=== PATIENT | female | born 1960 | race Caucasian/White ===

== ENCOUNTER → 2017-07-07 | Outpatient (CLI) | payer MEDICARE, SELFPAY ==
[~2017-07-07] MED LIST: /WARF5TA; ACET65TA; BACT800T5 PO; CEFT500T; ENALAPRIL; GLUC500T PO; GLUCOVANCE; INSULANT; JANU50TA25 PO; LISI-538 PO; LISI5TAB PO; PRED10TA2; SANT250O TOP; SLOWTAB; TRIPOIN TOP; TYLE167L PO; TYLE650T30 PO; VASO20TA; ZEST1TAB7 PO
[2017-07-07 13:20] LABS: ALBUMIN 3.3 GM/DL (3.2-5.2); ALBUMIN/GLOBULIN RATIO 0.89 (1.00-1.93); ALKALINE PHOSPHATASE 124 U/L (45-117); ALT/SGPT 17 U/L (12-78); ANION GAP 6 MEQ/L (8-16); AST/SGOT 7 U/L (15-37); BILIRUBIN,TOTAL 0.5 MG/DL (0.2-1.0); BLOOD UREA NITROGEN 10 MG/DL (7-18); CALCIUM LEVEL 8.6 MG/DL (8.5-10.1); CARBON DIOXIDE LEVEL 30 MEQ/L (21-32); CHLORIDE LEVEL 101 MEQ/L (98-107); GLOMERULAR FILTRATION RATE > 60.0 (>51); GLUCOSE, FASTING 215 MG/DL (70-105); POTASSIUM SERUM 4.6 MEQ/L (3.5-5.1); SODIUM LEVEL 137 MEQ/L (136-145)
== END ==
LOC: M LAB 12:22
PROVIDERS: ATTEND Nurse Practitioner Family
DX: E11.9 Type 2 diabetes mellitus without complications (principal)

== ENCOUNTER → 2018-04-05 | Outpatient (REF) | payer MEDICARE | LOC: M LAB REF 04-06 11:12 | DX: L03.126 Acute lymphangitis of left lower limb (principal) | CPT/HCPCS: 87186 ==

== ENCOUNTER → 2018-12-04 | Outpatient (REF) | payer MEDICARE ==
[2018-12-04 16:59] LABS: BASO % 0.5 % (0.0-1.0); EOS # 0.1 10^3/uL (0.0-0.50); EOS % 1.4 % (0.0-3.0); HEMATOCRIT 39.2 % (36.0-47.0); HEMOGLOBIN 12.4 g/dl (12.0-15.5); LYMPH # 1.7 10^3/uL (1.5-4.5); LYMPH % 21.2 % (24.0-44.0); MEAN CORPUSCULAR HGB CONC 31.6 g/dl (32.0-36.5); MEAN CORPUSCULAR VOLUME 82.2 fl (80.0-96.0); MONO # 0.5 10^3/uL (0.0-0.8); MONO % 6.7 % (0.0-5.0); NEUTROPHILS # 5.5 10^3/uL (1.8-7.7); NEUTROPHILS % 69.9 % (36.0-66.0); PLATELET COUNT, AUTOMATED 374 10^3/uL (150-450); RED BLOOD COUNT 4.77 10^6/uL (4.00-5.40); WHITE BLOOD COUNT 7.9 10^3/uL (4.0-10.0)
[2018-12-04 17:04] LABS: ALBUMIN 3.3 GM/DL (3.2-5.2); ALT/SGPT 20 U/L (12-78); BILIRUBIN,TOTAL 0.4 MG/DL (0.2-1.0); BLOOD UREA NITROGEN 16 MG/DL (7-18); CALCIUM LEVEL 8.7 MG/DL (8.5-10.1); CARBON DIOXIDE LEVEL 28 MEQ/L (21-32); CHLORIDE LEVEL 100 MEQ/L (98-107); CHOLESTEROL LEVEL 152 MG/DL (<200); CHOLESTEROL RISK RATIO 2.814 (<5); GLOMERULAR FILTRATION RATE > 60.0 (>51); GLUCOSE, FASTING 232 MG/DL (70-100); HDL CHOLESTEROL 54 MG/DL (>40); LDL CHOLESTEROL 80 MG/DL (<100); NON-HDL-C 98 MG/DL; POTASSIUM SERUM 4.1 MEQ/L (3.5-5.1); SODIUM LEVEL 135 MEQ/L (136-145); TOTAL PROTEIN 7.1 GM/DL (6.4-8.2); TRIGLYCERIDES LEVEL 88 MG/DL (<150)
[2018-12-04 17:23] LABS: MAU/CREAT RATIO 6.2 MCG/MG (0.0-30.0)
[2018-12-04 17:43] LABS: HEMOGLOBIN A1c 9.2 %
== END ==
LOC: M LAB REF 16:14
PROVIDERS: ATTEND Nurse Practitioner Adult Health
DX: E11.9 Type 2 diabetes mellitus without complications (principal); Z13.9 Encounter for screening, unspecified; I10 Essential (primary) hypertension

== ENCOUNTER → 2019-04-10 | Outpatient (REF) | payer MEDICARE ==
[~2019-04-10] MED LIST changes: -/WARF5TA; +COLL30OI TOP; +COUM1TAB17; -SANT250O TOP
[2019-04-10 19:14] LABS: BASO # 0.1 10^3/uL (0.0-0.2); BASO % 0.6 % (0.0-1.0); EOS # 0.2 10^3/uL (0.0-0.50); EOS % 1.9 % (0.0-3.0); HEMATOCRIT 38.7 % (36.0-47.0); HEMOGLOBIN 12.5 g/dl (12.0-15.5); LYMPH # 2.8 10^3/uL (1.5-4.5); LYMPH % 31.2 % (24.0-44.0); MEAN CORPUSCULAR HEMOGLOBIN 27.2 pg (27.0-33.0); MEAN CORPUSCULAR HGB CONC 32.3 g/dl (32.0-36.5); MEAN CORPUSCULAR VOLUME 84.1 fl (80.0-96.0); MONO # 0.6 10^3/uL (0.0-0.8); MONO % 6.6 % (0.0-5.0); NEUTROPHILS # 5.2 10^3/uL (1.8-7.7); NEUTROPHILS % 59.4 % (36.0-66.0); PLATELET COUNT, AUTOMATED 354 10^3/uL (150-450); WHITE BLOOD COUNT 8.8 10^3/uL (4.0-10.0)
[2019-04-10 19:25] LABS: HEMOGLOBIN A1c 8.3 %
[2019-04-10 19:39] LABS: ALBUMIN 3.3 GM/DL (3.2-5.2); ALT/SGPT 17 U/L (12-78); BILIRUBIN,TOTAL 0.4 MG/DL (0.2-1.0); BLOOD UREA NITROGEN 13 MG/DL (7-18); CALCIUM LEVEL 8.8 MG/DL (8.5-10.1); CARBON DIOXIDE LEVEL 29 MEQ/L (21-32); CHLORIDE LEVEL 102 MEQ/L (98-107); CHOLESTEROL LEVEL 153 MG/DL (<200); CHOLESTEROL RISK RATIO 2.732 (<5); CREATININE FOR GFR 0.81 MG/DL (0.55-1.30); GLOMERULAR FILTRATION RATE > 60.0 (>51); GLUCOSE, FASTING 105 MG/DL (70-100); HDL CHOLESTEROL 56 MG/DL (>40); LDL CHOLESTEROL 80 MG/DL (<100); NON-HDL-C 97 MG/DL; POTASSIUM SERUM 4.1 MEQ/L (3.5-5.1); SODIUM LEVEL 139 MEQ/L (136-145); TOTAL PROTEIN 7.1 GM/DL (6.4-8.2); TRIGLYCERIDES LEVEL 87 MG/DL (<150)
[2019-04-10 19:47] LABS: TOTAL 25(OH) VITAMIN D 18.9 NG/ML (30.0-100.0)
== END ==
LOC: M LAB REF 18:38
PROVIDERS: ATTEND Nurse Practitioner Family
DX: I10 Essential (primary) hypertension (principal); Z13.220 Encounter for screening for lipoid disorders; E11.9 Type 2 diabetes mellitus without complications

== ENCOUNTER 2019-05-13 11:09 | Emergency (ER) | payer MEDICARE ==
[~2019-05-13] VITALS: Ht 170.2 cm; Wt 134.0 kg
[2019-05-13] MEDS ORDERED: LANTINJ4 (11:18)
[2019-05-13] MEDS ORDERED: RISP0.253 (11:18)
[2019-05-13] MEDS ORDERED: IBUP-1114 PO (11:18)
--- NOTE | 2019-05-13 11:57 | REP ---
Clinical: Pain without injury. Technique: AP, lateral, bilateral oblique and sunrise views of the right knee. Findings: Osteopenia and mild tricompartmental osteoarthritic degenerative changes are appreciated. The suprapatellar effusion is noted. The evidence for significant peripheral vascular disease. Impression: Mild tricompartmental osteoarthritic degenerative changes. Possible suprapatellar effusion. Electronically Signed by Gerard Ray MD 05/13/2019 11:48 A
[2019-05-13 12:35] VITALS: BP 149/76
== END 2019-05-13 12:50 | disposition home or self-care (01) ==
LOC: M ED 11:09
DX: M17.11 Unilateral primary osteoarthritis, right knee (principal); E11.9 Type 2 diabetes mellitus without complications; I10 Essential (primary) hypertension; Z79.4 Long term (current) use of insulin

== ENCOUNTER 2019-12-17 19:46 | Observation (INO) | payer MEDICARE ==
[~2019-12-17] VITALS: Ht 170.2 cm; Wt 145.2 kg
[~2019-12-17 19:46] MED LIST changes: +IBUP-1114 PO; +LANTINJ4; +RISP0.253
[2019-12-17] MEDS ORDERED: NS 500 ML IV ONE (21:00)
[2019-12-17] MEDS ORDERED: HumaLOG INSULIN (NovoLOG) PER UNIT SC SCH (21:00)
--- NOTE | 2019-12-17 21:06 | REPVR ---
PROCEDURE INFORMATION: Exam: CT Head Without Contrast Exam date and time: 12/17/2019 8:49 PM Age: 59 years old Clinical indication: Pain; Headache; Additional info: Headache, vomiting TECHNIQUE: Imaging protocol: Computed tomography of the head without contrast. Radiation optimization: All CT scans at this facility use at least one of these dose optimization techniques: automated exposure control; mA and/or kV adjustment per patient size (includes targeted exams where dose is matched to clinical indication); or iterative reconstruction. COMPARISON: No relevant prior studies available. FINDINGS: Brain: There is ztmq-qc-tbyqvygy parenchymal volume loss atypical for patient age. Mild white matter changes consistent with age related small vessel white matter angiopathic gliosis. Ventricles: The degree of ventricular dilatation is normal for age and/or degree of atrophy present. Bones/joints: Unremarkable. No acute fracture. Sinuses: Visualized sinuses are unremarkable. No fluid levels. Mastoid air cells: Visualized mastoid air cells are well aerated. Soft tissues: Unremarkable. IMPRESSION: 1. There is enfd-wg-hzzxtsaj parenchymal volume loss atypical for patient age. Mild white matter changes consistent with age related small vessel white matter angiopathic gliosis. 2. The degree of ventricular dilatation is normal for age and/or degree of atrophy present. Electronically signed by: Rigo Fox On 12/17/2019 21:05:29 PM
[2019-12-17 21:07] LABS: BASO % 0.1 % (0.0-1.0); EOS % 0.3 % (0.0-3.0); HEMATOCRIT 40.1 % (36.0-47.0); HEMOGLOBIN 12.8 g/dl (12.0-15.5); LYMPH # 0.3 10^3/uL (1.5-5.0); LYMPH % 3.5 % (24.0-44.0); MEAN CORPUSCULAR HEMOGLOBIN 26.5 pg (27.0-33.0); MEAN CORPUSCULAR HGB CONC 31.9 g/dl (32.0-36.5); MONO # 0.3 10^3/uL (0.0-0.8); MONO % 3.1 % (0.0-5.0); NEUTROPHILS # 8.6 10^3/uL (1.5-8.5); NEUTROPHILS % 92.7 % (36.0-66.0); PLATELET COUNT, AUTOMATED 302 10^3/uL (150-450); RED BLOOD COUNT 4.83 10^6/uL (4.00-5.40); WHITE BLOOD COUNT 9.3 10^3/uL (4.0-10.0)
[2019-12-17 21:18] LABS: INR 1.1; PROTHROMBIN TIME 13.9 SECONDS (11.8-14.0)
[2019-12-17 21:19] LABS: PARTIAL THROMBOPLASTIN TIME 32.8 SECONDS (25.0-38.4)
[2019-12-17 21:31] LABS: ALBUMIN 3.3 GM/DL (3.2-5.2); ALT/SGPT 16 U/L (12-78); BILIRUBIN,DIRECT 0.3 MG/DL (0.0-0.2); BILIRUBIN,TOTAL 0.6 MG/DL (0.2-1.0); BLOOD UREA NITROGEN 19 MG/DL (7-18); CALCIUM LEVEL 8.7 MG/DL (8.8-10.2); CARBON DIOXIDE LEVEL 28 MEQ/L (21-32); CHLORIDE LEVEL 99 MEQ/L (98-107); CK-MB VALUE MASS < 1.0 NG/ML (<3.6); CPK CREATINE PHOSPHOKINASE 34 U/L (26-192); CREATININE FOR GFR 0.94 MG/DL (0.55-1.30); FREE T4 1.33 NG/DL (0.76-1.46); GLOMERULAR FILTRATION RATE > 60.0 (>45); GLUCOSE, FASTING 286 MG/DL (70-100); LIPASE 132 U/L (73-393); MAGNESIUM LEVEL 1.4 MG/DL (1.8-2.4); MB/CK RELATIVE INDEX 2.94 (< OR =4); POTASSIUM SERUM 4.4 MEQ/L (3.5-5.1); SODIUM LEVEL 131 MEQ/L (136-145); THYROID STIMULATING HORMONE 0.747 uIU/ML (0.358-3.740); TOTAL PROTEIN 6.7 GM/DL (6.4-8.2); TROPONIN I < 0.02 NG/ML (< 0.10)
--- NOTE | 2019-12-17 21:57 | REPVR ---
PROCEDURE INFORMATION: Exam: XR Chest, 2 Views Exam date and time: 12/17/2019 9:20 PM Age: 59 years old Clinical indication: Other: Near syncope TECHNIQUE: Imaging protocol: XR of the chest Views: 2 views. COMPARISON: CR Chest, 2 view PA, Lat 06/13/2015 8:36 AM FINDINGS: Lungs: Lung volumes are low. There is mild bibasilar atelectasis. The lungs are otherwise clear. Pleural space: Unremarkable. No pleural effusion. No pneumothorax. Heart/Mediastinum: The cardiomediastinal silhouette is stable in appearance allowing for differences in positioning. Bones/joints: Degenerative changes again involve the spine and shoulders. Other findings: Surgical clips again overlie the right upper quadrant. IMPRESSION: No evidence for acute pulmonary disease. Electronically signed by: Jimenez Abdalla On 12/17/2019 21:57:08 PM
[2019-12-17 22:59] LABS: INFLUENZA A AMPLIFICATION NEGATIVE (NEGATIVE); INFLUENZA B AMPLIFICATION NEGATIVE (NEGATIVE)
[2019-12-17] MEDS ORDERED: ONDANSETRON 4MG/2ML VIAL (J2405) IV PRN (23:15)
[2019-12-17] MEDS ORDERED: ACETAMINOPHEN TAB 650MG DOSE (2X325MG) PO PRN (23:15)
[2019-12-17] MEDS ORDERED: MAALOX 30 ML SUSP *UDC PO PRN (23:15)
[2019-12-17] MEDS ORDERED: MOM 30ML SUSPENSION UDC PO PRN (23:15)
--- NOTE | 2019-12-17 23:20 | HPEPDOC ---
[facility] Medical History & Physical Date of Admission Dec 17, 2019 Date of Service: Dec 17, 2019 Other Provider Jazmyne Morse [facility] Attending Physician: MARLO MCGRATH MD History and Physical TIME OF SERVICE: 11:55 PM CHIEF COMPLAINT: Dizzy HISTORY OF PRESENT ILLNESS: This is a 59 year-old female that presents with complaints of feeling dizzy, lightheaded and like the room was spinning this afternoon. She denies having ringing in her ears, blurry vision, or headaches. She has also had fevers and chills, and 1 episode of nonbloody emesis. She denies having diarrhea. 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 REVIEW OF SYSTEMS: 12 point review of systems negative except as listed in HPI PAST MEDICAL/ SURGICAL HISTORY: Cibola's Chronic hypertension IDDM Migraines. History of PE SOCIAL HISTORY: She doesn't smoke FAMILY HISTORY: Symptoms. Diabetes ALLERGIES: Please see below. HOME MEDICATIONS: Please see below. PHYSICAL EXAMINATION: VITAL SIGNS: Please see below. GEN: well-nourished / well developed INTEGUMENT: not flushed/ not jaundice HEENT: NCAT / mucus membranes slightly dry CVS: RRR/NMRG/trace lower extremity edema LUNGS: clear to auscultation bilaterally on room air ABDOMEN: Contour ( obese) / abdomen is tympanic on percussion, soft & not tender with palpation NEURO: CN 2-12 are grossly intact / speech is not dysarthric / strength is 5/5 in both upper extremities, 1/5 in left lower extremity, and 2 / 5 in right lower extremity PSYCH: alert and oriented to person place and time/ able to understand and follow all commands LABORATORY DATA: See below. IMAGING: CT head " IMPRESSION: 1. There is uxxk-ro-cynxhvtd parenchymal volume loss atypical for patient age. Mild white matter changes consistent with age related small vessel white matter angiopathic gliosis. 2. The degree of ventricular dilatation is normal for age and/or degree of atrophy present. Chest x-ray " IMPRESSION: No evidence for acute pulmonary disease." ASSESSMENT: Ms. Matos is a 59 old female with a history of Cibola's, HTN, IDDM, and migraines, who is admitted for evaluation of dizziness and weakness of unclear cause. PLAN: 1. Dizziness Possibly due to mild dehydration vs hyperglycemia vs vertebrobasilar insufficiency vs BPPV vs other cause to be determined Orthostats and CT of the head done in the ER were negative The EKG showed sinus arrhythmia with a heart rate 108, and the troponin within normal limits Plan: Admit to medical floor/telemetry/follow-up MRA of the head in the mor bredna/PT consult for dill Hallpike and Darshan maneuvers 2. Weakness Possibly due to progressing Cibola's Plan: PT eval to determine if she needs rehabilitation 3. Gfnquj-cniy-adceadem likely due to hyperglycemia. The corrected sodium is 134 4. Hypomagnesemia, likely due to vomiting - Plan: Replete magnesium & follow up lytes in the morning 5. Chronic hypertension - Plan: Lisinopril 6. IDDM - Plan: diabetic diet / f/u accuchecks & A1C / hypoglycemia protocol / sliding scale insulin / continue glargine 50 units daily 7. Morbid obesity with a BMI of 50.1 and coexisting diabetes. This complicates care. 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 & referral for Bariatric Surgeon DVT PROPHYLAXIS: Lovenox DISPOSITION: Home versus temporary placement for rehabilitation after more than 2 midnight's stay Vital Signs Vital Signs Date Time Temp Pulse Resp B/P (MAP) Pulse Ox O2 Delivery O2 Flow Rate FiO2 12/17/19 21:55 104 105/59 (74) 110 116/67 (83) 12/17/19 20:11 99.4 22 96 Room Air Laboratory Data Labs 24H Laboratory Tests 2 12/17/19 20:52: Immature Granulocyte % (Auto) 0.3, Neutrophils (%) (Auto) 92.7H, Lymphocytes (%) (Auto) 3.5L, Monocytes (%) (Auto) 3.1, Eosinophils (%) (Auto) 0.3, Basophils (%) (Auto) 0.1, Neutrophils # (Auto) 8.6H, Lymphocytes # (Auto) 0.3L, Monocytes # (Auto) 0.3, Eosinophils # (Auto) 0.0, Basophils # (Auto) 0.0, Nucleated Red Blood Cells % (auto) 0.0, Prothrombin Time 13.9, Prothromb Time International Ratio 1.10, Activated Partial Thromboplast Time 32.8, Anion Gap 4L, Glomerular Filtration Rate > 60.0, Calcium Level 8.7L, Magnesium Level 1.4L, Total Bilirubin 0.6, Direct Bilirubin 0.3H, Aspartate Amino Transf (AST/SGOT) 7, Alanine Aminotransferase (ALT/SGPT) 16, Alkaline Phosphatase 104, Total Creatine Kinase 34, Creatine Kinase MB < 1.0, Creatine Kinase MB Relative Index 2.94, Troponin I < 0.02, Total Protein 6.7, Albumin 3.3, Albumin/Globulin Ratio 0.97L, Lipase 132, Thyroid Stimulating Hormone (TSH) 0.747, Free Thyroxine 1.33 12/17/19 22:13: Influenza Type A (RT-PCR) NEGATIVE, Influenza Type B (RT-PCR) NEGATIVE CBC/BMP Laboratory Tests 12/17/19 20:52 Home Medications Scheduled Insulin Glargine,Hum.rec.anlog (Lantus Solostar) 100 Unit/1 Ml Insuln.pen, 50 UNITS SC DAILY Lisinopril (Lisinopril) 20 Mg Tab, 20 MG PO QHS Risperidone (Risperidone) 0.25 Mg Tablet, 0.25 MG PO QHS Scheduled PRN Ibuprofen (Ibuprofen) 200 Mg Tablet, 400 MG PO Q6H PRN for PAIN / FEVER Allergies Coded Allergies: No Known Allergies (Verified Allergy, Unknown, 05/13/19) A-FIB/CHADSVASC A-FIB History Current/History of A-Fib/PAF?: No Current PO Anticoag Therapy: MARLO Skinner MD Dec 17, 2019 23:20
[2019-12-17] MEDS ORDERED: DEXTROSE 50% 50 ML SYRINGE IV PRN (23:30)
[2019-12-17] MEDS ORDERED: GLUCOSE 4 GM CHEW TABLET PO PRN (23:30)
[2019-12-17] MEDS ORDERED: GLUCAGON FOR INJ 1 MG VIAL (J1610) SC PRN (23:30)
[2019-12-17] MEDS ORDERED: LANTINJ4 SC (23:59)
[2019-12-17] MEDS ORDERED: IBUP-1720 PO (23:59)
[2019-12-17] MEDS ORDERED: RISP0.253 PO (23:59)
[2019-12-18 00:55] VITALS: BP 109/63
[2019-12-18] MEDS: NS 1,000 ML IV SCH ×2 (01:52→11:45)
[2019-12-18] MEDS ORDERED: IBUPROFEN 400 MG TAB PO PRN (03:00)
[2019-12-18] MEDS ORDERED: MAGNESIUM OXIDE 400 MG TAB (MAG-OX) PO ONE (03:00)
[2019-12-18 06:00] VITALS: BP 113/64
[2019-12-18 06:49] LABS: HEMATOCRIT 36.2 % (36.0-47.0); HEMOGLOBIN 11.4 g/dl (12.0-15.5); MEAN CORPUSCULAR HEMOGLOBIN 26.3 pg (27.0-33.0); MEAN CORPUSCULAR HGB CONC 31.5 g/dl (32.0-36.5); MEAN CORPUSCULAR VOLUME 83.6 fl (80.0-96.0); PLATELET COUNT, AUTOMATED 271 10^3/uL (150-450); RED BLOOD COUNT 4.33 10^6/uL (4.00-5.40); WHITE BLOOD COUNT 6.2 10^3/uL (4.0-10.0)
[2019-12-18 07:17] LABS: BLOOD UREA NITROGEN 21 MG/DL (7-18); CALCIUM LEVEL 8.2 MG/DL (8.8-10.2); CARBON DIOXIDE LEVEL 27 MEQ/L (21-32); CHLORIDE LEVEL 100 MEQ/L (98-107); CREATININE FOR GFR 0.95 MG/DL (0.55-1.30); GLOMERULAR FILTRATION RATE > 60.0 (>45); GLUCOSE, FASTING 296 MG/DL (70-100); POTASSIUM SERUM 3.6 MEQ/L (3.5-5.1); SODIUM LEVEL 133 MEQ/L (136-145)
[2019-12-18] MEDS ORDERED: DOCUSATE SODIUM 100 MG CAP PO SCH (09:00)
[2019-12-18] MEDS ORDERED: ENOXAPARIN 40 MG/0.4 ML SYRINGE (J1650) SC SCH (09:00)
[2019-12-18] MEDS ORDERED: LEVEMIR (INSULIN DETEMIR) 1 UNITS/0.01ML SC SCH (09:00)
--- NOTE | 2019-12-18 09:39 | REPVR ---
PROCEDURE INFORMATION: Exam: MR Angiogram Head Without Contrast, Arteries Exam date and time: 12/18/2019 8:36 AM Age: 59 years old Clinical indication: Dizziness and giddiness and weakness; Additional info: Rule out vertebrobasilar insuff in diabetic PT w dizziness TECHNIQUE: Imaging protocol: MR angiogram head without contrast. Exam focused on the arteries. 3D rendering: MIP and/or 3D reconstructed images were created by the technologist. COMPARISON: CT Head without contrast 12/17/2019 8:46 PM FINDINGS: Right internal carotid artery: Unremarkable. Intracranial segment is patent with no significant stenosis. No aneurysm. Right anterior cerebral artery: Unremarkable. No occlusion or significant stenosis. No aneurysm. Right middle cerebral artery: Unremarkable. No occlusion or significant stenosis. No aneurysm. Right posterior cerebral artery: There is a origin of the right posterior cerebral artery. Right vertebral artery: Unremarkable. No occlusion or significant stenosis. No aneurysm. Left internal carotid artery: Unremarkable. Intracranial segment is patent with no significant stenosis. No aneurysm. Left anterior cerebral artery: Unremarkable. No occlusion or significant stenosis. No aneurysm. Left middle cerebral artery: Unremarkable. No occlusion or significant stenosis. No aneurysm. Left posterior cerebral artery: Unremarkable. No occlusion or significant stenosis. No aneurysm. Left vertebral artery: Unremarkable. No occlusion or significant stenosis. No aneurysm. Basilar artery: Unremarkable. No occlusion or significant stenosis. No aneurysm. IMPRESSION: Intracranial arterial circulation within normal limits. Electronically signed by: Leanne Becerra On 12/18/2019 09:38:51 AM
[2019-12-18] MEDS: MAG SULF 1GM/100ML (MAG RUN) 1 GM in IV 1 EA IV SCH ×2 (09:41→10:57)
[2019-12-18] MEDS: HumaLOG INSULIN (NovoLOG) PER UNIT SC SCH ×2 (09:42→13:23)
[2019-12-18 10:11] LABS: HEMOGLOBIN A1c 8.4 %
--- NOTE | 2019-12-18 10:44 | REPVR ---
PROCEDURE INFORMATION: Exam: MR Head Without Contrast Exam date and time: 12/18/2019 8:42 AM Age: 59 years old Clinical indication: Dizziness; Additional info: Acute dizziness TECHNIQUE: Imaging protocol: MR of the head without contrast. COMPARISON: CT Head without contrast 12/17/2019 8:46 PM FINDINGS: Brain: There is no extra-axial collection or intra-axial mass. Mild moderate diffuse volume loss is within the range of normal for patient age. There are foci of increased T2 and FLAIR hyperintensity within the periventricular and subcortical white matter nonspecific but typically small-vessel ischemia in this age group. There is no diffusion restriction. Ventricles: Diffuse prominence of the ventricular system is commensurate with volume loss. Bones/joints: Unremarkable. Soft tissues: Unremarkable. Sinuses: Normal as visualized. No acute sinusitis. Mastoid air cells: Normal as visualized. No mastoid effusion. Orbits: Unremarkable. IMPRESSION: No acute hemorrhage or edema. Electronically signed by: Leanne Becerra On 12/18/2019 10:44:08 AM
--- NOTE | 2019-12-18 13:40 | IPNPDOC ---
Text Note Date of Service The patient was seen on 12/18/19. NOTE SUBJECTIVE: Interval Hx: Patient was admitted overnight for feeling dizzy, lightheadedness with room spinning. She was orthostatic negative on admission. She is status post IV fluid rehydration. THIS AM Patient was examined at bedside. Denies any recent illness. States that a couple weeks ago she had cold-like symptoms with fever. That has since resolved. She also admits to recent slow progression of decreased hearing. Denies any emesis. Denies any nausea, any vomiting. Reported an episode of diarrhea this morning. OBJECTIVE: PHYSICAL EXAMINATION: GENERAL APPEARANCE: Alert no acute distress. , Pleasant, elderly female. Resting comfortably in bed. Accompanied by family member, obese SKIN: Warm, well perfused. ENT: Palate intact, puentes tympanic membrane no bulging, no erythema, Neck supple, no thyromegaly LUNGS: Clear to auscultation bilaterally. HEART: Normal S1, S2. No murmurs, no rubs, no gallops ABDOMEN: Soft. No masses. Bowel sounds are present. EXTREMITIES: Moves all extremities equally. No gross deformities. PULSES: 2+ upper and lower extremity . NEURO: Cranial nerves II to 12 intact, normal usdsji-pkru-xavbap exam, no weakness, Negative [place]-Hallpike maneuver LABORATORY DATA: Please see below. IMAGING: ASSEMENT This is a 59-year-old female presenting complaining of dizziness, lightheadedness, feeling of the room spinning. Had reported one episode of nonbilious vomiting, fevers, chills. She also complained of diarrhea on presentation. At baseline, patient has Lamb's chorea and was able to ambulate on her own prior to admission PLAN: #Dizziness and lightheadedness secondary to dehydration, BPPV, vomiting and diarrhea, versus hyperglycemia -Orthostatics have been negative, -Negative head CT -Status post IV fluid bolus, currently IV fluids maintenance at 80 mg/h -Hyperglycemia collected with insulin and sliding scale insulin, #Ambulatory dysfunction, secondary to Lamb's chorea, -Physical therapy and occupational therapy --- Patient has been evaluated by physical therapy. They recommended patient would need to do stairs and be able to sit still, will likely require a rolling walker and shower chair. Prior to discharge. Patient will be followed by physical therapy tomorrow #Hypomagnesemia -Replacement ordered # Hypomagnesemia, likely due to vomiting - Plan: Replete magnesium & follow up lytes in the morning # Chronic hypertension - Plan: Lisinopril # IDDM - -Lantus 50 units -Sliding-scale Disposition, pending PT clearance and OT evaluation. VS,Fishbone, I+O VS, Fishbone, I+O Laboratory Tests 12/17/19 20:52 12/18/19 05:59 Vital Signs Date Time Temp Pulse Resp B/P (MAP) Pulse Ox O2 Delivery O2 Flow Rate FiO2 12/18/19 06:00 97.0 98 18 113/64 (80) 95 Room Air I&O- Last 24 Hours up to 6 AM 12/18/19 06:00 Intake Total 300 ml Output Total 0 ml Balance 300 ml GME ATTESTATION GME ATTESTATION My faculty preceptor for this patient encounter was physically present during the encounter and was fully available. All aspects of the patient interview, examination, medical decision making process, and medical care plan development were reviewed and approved by the faculty preceptor. The faculty preceptor is aware and concurs with the plan as stated in the body of this note and will attest to such by his/her cosignature. ATTENDING NOTE 59-year-old W with Mateo's who presented with acute dizziness, lightheadedness and vertigo, in the setting of baseline unsteady gait. By the time we saw Ms. Matos she reported that her dizziness was much better, her orthostatics were negative, CT head wnl and she had received fluids. She is due to work with PT with plan for safe discharge hopefully home. TAVO CHAN DO Dec 18, 2019 08:24 JANAK GODOY MD Dec 19, 2019 13:03
[2019-12-18 14:00] VITALS: BP 116/60
--- NOTE | 2019-12-18 15:00 | ECGEPIP ---
[facility] - ED Test Date: 2019-12-17 Pat Name: MARCELL SORIANO Department: Room: [place] [address] Gender: Female Vp Foundation: EVIE : 1960 Requested By: SINGH Peng Order Number: [id number] Reading MD: Nupur Jacobsen Measurements Intervals [place] Rate: 108 P: IA: 0 QRS: 23 QRSD: 82 T: 28 QT: 317 QTc: 425 Interpretive Statements SINUS RHYTHM WITH PACS DELAYED R PROGRESSION LOW VOLTAGE LIMB INCREASED RATE/ECTOPY 06/13/15 ABNORMAL RHYTHM ECG Electronically Signed on 12-18-2019 15:00:11 EST by Nupur Jacobsen
[2019-12-18] MEDS ORDERED: risperiDONE 0.25 MG TAB PO SCH (21:00)
[2019-12-18] MEDS ORDERED: lisinopriL 20 MG TAB PO SCH (21:00)
--- NOTE | 2019-12-19 14:09 | DS.PDOC ---
Discharge Summary General Date of Admission Dec 17, 2019 at 19:47 Date of Discharge 12/18/2019 Attending Physician: JANAK GODOY MD Discharge Summary PROCEDURES PERFORMED DURING STAY: None ADMITTING DIAGNOSES: 1. Dizziness DISCHARGE DIAGNOSES: Dizziness Amberson's Chronic hypertension IDDM Migraines. History of PE COMPLICATIONS/CHIEF COMPLAINT: Dizziness;Vomiting. HISTORY OF PRESENT ILLNESS/HOSPITAL COURSE: This is a 59-year-old female who was admitted with complaints of dizziness, lightheadedness, sensation of the room spinning, denied any blurry vision. Denies any recent change in medication. Denied any recent sickness, denied any hearing loss.She complained of one episode of diarrhea and vomiting prior to admission. She was admitted for dizziness and had a workup that included negative MRI, she was also followed by physical therapy and patient had a negative screen for vestibular disease. BPPV evaluation was negative. After evaluation and negative testing, as well as negative orthostatics. Patient was able to be discharged home with home health PT, shower chair, and a rolling walker. Her symptoms had resolved prior to discharge. DISCHARGE MEDICATIONS: Please see below. ALLERGIES: Please see below. PHYSICAL EXAMINATION ON DISCHARGE: VITAL SIGNS: Please see below. GENERAL APPEARANCE: Alert no acute distress. SKIN: Warm, well perfused. LUNGS: Clear to auscultation bilaterally. HEART: Normal S1, S2. No murmurs, no rubs, no gallops ABDOMEN: Soft. No masses. Bowel sounds are present. EXTREMITIES: Moves all extremities equally. No gross deformities. PULSES: 2+ upper and lower extremity . LABORATORY DATA: Please see below. IMAGING: MRI: Intracranial arterial circulation within normal limits. CT Head: No acute hemorrhage or edema. Chest Xray: No evidence for acute pulmonary disease. Head CT: 1. There is pwbe-po-brnzxbvb parenchymal volume loss atypical for patient age. Mild white matter changes consistent with age related small vessel white matter angiopathic gliosis. 2. The degree of ventricular dilatation is normal for age and/or degree of atrophy present. PROGNOSIS: ACTIVITY: As tolerated with rolling walker DIET: As Tolerated DISCHARGE PLAN: To home with home PT DISPOSITION: 06 Home Health Service. DISCHARGE INSTRUCTIONS: 1. Follow up with PCP ITEMS TO FOLLOWUP ON ON OUTPATIENT: Dizziness Mateo's Chronic hypertension IDDM Migraines. History of PE DISCHARGE CONDITION: Stable TIME SPENT ON DISCHARGE: Greater than 30 minutes. Vital Signs/I&Os Vital Signs Date Time Temp Pulse Resp B/P (MAP) Pulse Ox O2 Delivery O2 Flow Rate FiO2 12/18/19 14:00 97.0 91 19 116/60 (78) 97 Room Air I&O- Last 24 Hours up to 6 AM 12/19/19 06:00 Intake Total 560 ml Balance 560 ml Laboratory Data Labs 24H Laboratory Tests 2 12/18/19 16:24: Bedside Glucose (Misc Panel) 159H FSBS Laboratory Tests Test 12/18/19 16:24 Range/Units Bedside Glucose (Misc Panel) 159 80-115 MG/DL Discharge Medications Scheduled Insulin Glargine,Hum.rec.anlog (Lantus Solostar) 100 Unit/1 Ml Insuln.pen, 50 UNITS SC DAILY, (Reported) Lisinopril (Lisinopril) 20 Mg Tab, 20 MG PO QHS, (Reported) Risperidone (Risperidone) 0.25 Mg Tablet, 0.25 MG PO QHS, (Reported) Scheduled PRN Ibuprofen (Ibuprofen) 200 Mg Tablet, 400 MG PO Q6H PRN for PAIN / FEVER, (Reported) Allergies Coded Allergies: No Known Allergies (Verified Allergy, Unknown, 05/13/19) GME ATTESTATION GME ATTESTATION My faculty preceptor for this patient encounter was physically present during the encounter and was fully available. All aspects of the patient interview, examination, medical decision making process, and medical care plan development were reviewed and approved by the faculty preceptor. The faculty preceptor is aware and concurs with the plan as stated in the body of this note and will attest to such by his/her cosignature. ATTENDING NOTE Ms. Matos is a very pleasant 59-year-old W with Amberson's with a prior history of unsteady gait, who was admitted for acute dizziness, lightheadedness and vertigo that have appear to have been transient and have since resolved without much intervention except fluids. She had a negative CT head, MRI and BPPV testing and PT recommended discharge home with home PT, shower chair and a rolling walker. TAVO CHAN DO Dec 19, 2019 14:09 JANAK GODOY MD Dec 20, 2019 08:19
== END 2019-12-18 17:13 | disposition home health service (06) ==
LOC: M ED 19:46 → EDBD 19:46 → M ED INP 19:47 → ENRESERV 12-18 00:22 → M MSPAV 12-18 00:55
PROVIDERS: ADMIT Internal Medicine; ATTEND Internal Medicine
DX: R42 Dizziness and giddiness (principal); G10 Huntington's disease; E11.9 Type 2 diabetes mellitus without complications; I10 Essential (primary) hypertension; G43.909 Migraine, unspecified, not intractable, without status migrainosus; Z86.711 Personal history of pulmonary embolism; R53.1 Weakness; E66.01 Morbid (severe) obesity due to excess calories; E83.42 Hypomagnesemia; Z79.4 Long term (current) use of insulin; Z79.899 Other long term (current) drug therapy
CPT/HCPCS: 36415; 70450; 70544; 70551; 71046; 80048; 80076; 82550; 82553; 83036; 83690; 83735; 84439; 84443; 84484; 85025; 85027; 85610; 85730; 87502; 93005; 93041; 94760; 96361; 96372; 96374; 97116; 97530; 97535; 99285; G0378; J1650; J3475

== ENCOUNTER → 2020-01-08 | Outpatient (REF) | payer MEDICARE ==
[~2020-01-08] MED LIST changes: +IBUP-1720 PO; +LANTINJ4 SC; +RISP0.253 PO
[2020-01-08 17:10] LABS: ALBUMIN 3.6 GM/DL (3.2-5.2); ALT/SGPT 15 U/L (12-78); BASO % 0.6 % (0.0-1.0); BILIRUBIN,TOTAL 0.4 MG/DL (0.2-1.0); BLOOD UREA NITROGEN 13 MG/DL (7-18); CALCIUM LEVEL 9.3 MG/DL (8.8-10.2); CARBON DIOXIDE LEVEL 28 MEQ/L (21-32); CHLORIDE LEVEL 102 MEQ/L (98-107); CHOLESTEROL LEVEL 163 MG/DL (<200); CHOLESTEROL RISK RATIO 3.018 (<5); CREATININE FOR GFR 0.83 MG/DL (0.55-1.30); EOS # 0.1 10^3/uL (0.0-0.5); EOS % 1.9 % (0.0-3.0); FREE T4 1.31 NG/DL (0.76-1.46); GLOMERULAR FILTRATION RATE > 60.0 (>45); GLUCOSE, FASTING 182 MG/DL (70-100); HDL CHOLESTEROL 54 MG/DL (>40); HEMATOCRIT 39.5 % (36.0-47.0); LDL CHOLESTEROL 96 MG/DL (<100); LYMPH # 1.7 10^3/uL (1.5-5.0); LYMPH % 24.4 % (24.0-44.0); MEAN CORPUSCULAR HEMOGLOBIN 25.9 pg (27.0-33.0); MEAN CORPUSCULAR HGB CONC 30.4 g/dl (32.0-36.5); MEAN CORPUSCULAR VOLUME 85.3 fl (80.0-96.0); MONO # 0.6 10^3/uL (0.0-0.8); MONO % 8.8 % (0.0-5.0); NEUTROPHILS # 4.4 10^3/uL (1.5-8.5); NON-HDL-C 109 MG/DL; PLATELET COUNT, AUTOMATED 356 10^3/uL (150-450); POTASSIUM SERUM 4.3 MEQ/L (3.5-5.1); RED BLOOD COUNT 4.63 10^6/uL (4.00-5.40); SODIUM LEVEL 135 MEQ/L (136-145); TOTAL PROTEIN 7.2 GM/DL (6.4-8.2); TRIGLYCERIDES LEVEL 63 MG/DL (<150); WHITE BLOOD COUNT 6.9 10^3/uL (4.0-10.0)
[2020-01-08 17:12] LABS: TOTAL 25(OH) VITAMIN D 19.3 NG/ML (30.0-100.0)
[2020-01-08 17:18] LABS: HEMOGLOBIN A1c 8.3 %
== END ==
LOC: M LAB REF 15:53
PROVIDERS: ATTEND Nurse Practitioner Family
DX: R26.81 Unsteadiness on feet (principal); E66.01 Morbid (severe) obesity due to excess calories; I10 Essential (primary) hypertension; G10 Huntington's disease; E11.40 Type 2 diabetes mellitus with diabetic neuropathy, unspecified; E11.9 Type 2 diabetes mellitus without complications

== ENCOUNTER → 2020-04-11 | Outpatient (REF) | payer MEDICARE, OTHER ==
[~2020-04-11] MED LIST changes: +ASPI81TA26 PO; +CLIN300C6 PO; +COLA100C5 PO; -LISI-538 PO; +LISI20TA33 PO; +PENI500T PO; +PLAV1TAB2 PO; +ZOFR4TAB16 PO
== END ==
LOC: M LAB REF 19:41
PROVIDERS: ATTEND Physician Assistant Medical
DX: E11.621 Type 2 diabetes mellitus with foot ulcer (principal); L97.928 Non-pressure chronic ulcer of unspecified part of left lower leg with other specified severity

== ENCOUNTER 2020-06-02 13:58 | Inpatient (IN) | payer MEDICARE ==
[~2020-06-02] VITALS: Ht 170.2 cm; Wt 98.9 kg
[~2020-06-02 13:58] MED LIST changes: -ASPI81TA26 PO; -CLIN300C6 PO; -COLA100C5 PO; +LISI-538 PO; -LISI20TA33 PO; -PENI500T PO; -PLAV1TAB2 PO; -ZOFR4TAB16 PO
[2020-06-02] MEDS ORDERED: CLIN300C5 PO (14:07)
[2020-06-02] MEDS ORDERED: COLA100C5 PO (14:07)
[2020-06-02] MEDS ORDERED: PENI500T PO (14:07)
[2020-06-02 15:49] LABS: BASO % 0.5 % (0.0-1.0); EOS # 0.1 10^3/uL (0.0-0.5); EOS % 1.4 % (0.0-3.0); HEMATOCRIT 31.1 % (36.0-47.0); HEMOGLOBIN 9.7 g/dl (12.0-15.5); LYMPH # 1.6 10^3/uL (1.5-5.0); LYMPH % 18.1 % (24.0-44.0); MEAN CORPUSCULAR HEMOGLOBIN 24.7 pg (27.0-33.0); MEAN CORPUSCULAR HGB CONC 31.2 g/dl (32.0-36.5); MEAN CORPUSCULAR VOLUME 79.1 fl (80.0-96.0); MONO # 0.7 10^3/uL (0.0-0.8); MONO % 7.8 % (0.0-5.0); NEUTROPHILS # 6.3 10^3/uL (1.5-8.5); NEUTROPHILS % 71.7 % (36.0-66.0); PLATELET COUNT, AUTOMATED 404 10^3/uL (150-450); RED BLOOD COUNT 3.93 10^6/uL (4.00-5.40); WHITE BLOOD COUNT 8.8 10^3/uL (4.0-10.0)
[2020-06-02 16:00] LABS: BLOOD UREA NITROGEN 12 MG/DL (7-18); C REACTIVE PROTEIN QUANTITATIV 4.82 MG/DL (0.00-0.30); CALCIUM LEVEL 8.8 MG/DL (8.8-10.2); CARBON DIOXIDE LEVEL 27 MEQ/L (21-32); CHLORIDE LEVEL 99 MEQ/L (98-107); CREATININE FOR GFR 0.95 MG/DL (0.55-1.30); GLOMERULAR FILTRATION RATE > 60.0 (>45); GLUCOSE, FASTING 288 MG/DL (70-100); POTASSIUM SERUM 4.3 MEQ/L (3.5-5.1); SODIUM LEVEL 132 MEQ/L (136-145)
[2020-06-02] MEDS ORDERED: BUPIVACAINE HCL 0.5% 10ML VIAL As Ordered ONE (16:49)
[2020-06-02] MEDS ORDERED: LIDOCAINE 2% MDV 20ML VIAL As Ordered ONE (16:49)
[2020-06-02 17:10] LABS: ERYTHROCYTE SEDIMENTATION RATE 76 mm/hr (0-30)
[2020-06-02] MEDS ORDERED: fentaNYL 100 MCG/2 ML INJECTION (J3010) As Ordered ONE (18:06)
[2020-06-02] MEDS ORDERED: propofoL 200 MG/20 ML VIAL As Ordered ONE ×2 (18:06→19:21)
[2020-06-02] MEDS ORDERED: LIDOCAINE 2% 100MG/5ML SDV (FOR ANES.) As Ordered ONE (18:06)
[2020-06-02] MEDS ORDERED: ONDANSETRON 4MG/2ML VIAL As Ordered ONE (18:06)
[2020-06-02] MEDS ORDERED: MIDAZOLAM INJ 2MG/2ML VIAL (J2250 PER 1MG) As Ordered ONE (18:07)
[2020-06-02] MEDS ORDERED: MOM 30ML SUSPENSION UDC PO PRN ×2 (18:15→18:30)
[2020-06-02] MEDS ORDERED: MAALOX 30 ML SUSP *UDC PO PRN ×2 (18:15→18:30)
[2020-06-02] MEDS ORDERED: GLUCAGON INJ 1MG VIAL SC PRN ×2 (18:15→18:30)
[2020-06-02] MEDS ORDERED: DEXTROSE 50% 50 ML SYRINGE IV PRN ×2 (18:15→18:30)
[2020-06-02] MEDS ORDERED: GLUCOSE 4GM CHEW TABLET PO PRN ×2 (18:15→18:30)
[2020-06-02] MEDS ORDERED: ACETAMINOPHEN TAB 650MG DOSE (2X325MG) PO PRN ×2 (18:15→18:30)
--- NOTE | 2020-06-02 18:54 | HPEPDOC ---
[facility] Medical History & Physical Date of Admission Jun 02, 2020 Date of Service: Jun 02, 2020 Attending Physician: JEAN RODRIGUEZ MD History and Physical CHIEF COMPLAINT: Left foot ulcer HISTORY OF PRESENT ILLNESS: Digna Matos is a 59-year-old female who presented to the emergency department today after being seen by Dr. Kamara in his office for an ongoing left foot ulcer. She states that she's had the ulceration for about the past month. She states it first started after she wore a bad slippers which was rubbing against the outside part of her left foot. She had seen Dr. Kamara in the past for ulcerations on her foot and called to have him evaluate this new issue. She was started on penicillin and clindamycin and followed with Dr. Kamara closely. He also took x-rays on several visits and extended the courses of her penicillin and clindamycin due to poor healing. He also referred her to Dr. Wilson for evaluation of peripheral vascular disease. On today's visit with Dr. Kamara, he was concerned for osteomyelitis due to his exam and x-ray findings. He instructed her to come to the hospital for surgical intervention today. The patient notes that she does have some pain on the left lateral foot, especially when walking. She does have bilateral peripheral neuropathy at baseline. She has not had any recent fevers or chills. PAST MEDICAL HISTORY: 1. Diabetes mellitus with peripheral neuropathy 2. Hypertension 3. Mateo's disease 4. Chronic constipation PAST SURGICAL HISTORY: 1. Cholecystectomy 2. Hysterectomy 3. Prior toe amputation SOCIAL HISTORY: Never smoker. No current alcohol use. Denies illicit or IV drug use. On disability. Lives at home with and brother. FAMILY HISTORY: Father: Unknown Mother: Diabetes mellitus and Mclennan's disease ALLERGIES: Please see below. REVIEW OF SYSTEMS: CONSTITUTIONAL: Endorses weight gain over the past 6 months. Denies fevers, chills, night sweats, fatigue. HEENT: Denies change in vision, change in hearing. CARDIOVASCULAR: Denies chest pain, palpitations, shortness of breath, lightheadedness. RESPIRATORY: Denies dyspnea, cough, wheezing. GASTROINTESTINAL: Endorses chronic constipation. Denies nausea, vomiting, abdominal pain, diarrhea, blood in stool. GENITOURINARY: Denies dysuria, urinary frequency, urinary urgency. SKIN: Denies new rash/lesions. MUSCULOSKELETAL: Denies joint pain or muscle aches. NEUROLOGICAL: Denies headache, weakness. PSYCHIATRIC: Denies change in mood. HOME MEDICATIONS: Please see below. PHYSICAL EXAMINATION: VITAL SIGNS: see below GENERAL: Alert, comfortable, in no acute distress HEENT: Normocephalic, atraumatic, sclera anicteric, moist mucous membranes NECK: Supple, trachea midline CARDIOVASCULAR: Regular rate and rhythm, normal S1 and S2. No murmurs, rubs, or gallops RESPIRATORY: Clear to auscultation bilaterally with equal air entry bilaterally. No wheezing, rhonchi, or rales. ABDOMEN: Soft, nontender, nondistended, bowel sounds present, obese EXTREMITIES: 1+ pitting edema up to the knees bilaterally. Pulses 1/4 in bilateral lower extremities dorsalis pedis and posterior tibial. SKIN: Venous stasis skin changes over bilateral lower extremities. Area of ulceration extending down to the bone over the lateral and plantar surfaces of the left foot over the fifth metatarsal bone, no surrounding erythema, no discharge dressed in a dry dressing. There is a second area of ulceration on the distal tip of the right great toe which is about 1 cm x 1 cm in size which appears clean without discharge, surrounding erythema, or warmth. NEUROLOGIC: Alert and oriented x3 to person, place and time. No focal deficits appreciated PSYCHIATRIC: Mood and affect appropriate LABORATORY DATA: See below. IMAGING: Foot XR done at Dr. Kamara's office is not available for review. MICROBIOLOGY: Please see below. ASSESSMENT: 59-year-old female who presented to the ED at the instruction of Dr. Kamara to be admitted for surgical excision of the fifth metatarsal on the left foot due to osteomyelitis PLAN: 1. Osteomyelitis of the left fifth metatarsal Dr. Kamara consulted for surgical intervention, which is planned for today. No preoperative antibiotics per Dr. Kamara. Postoperatively consider starting antibiotics with IV vancomycin and IV ceftriaxone with de-escalation pending culture results. Blood cultures 2 pending. Tylenol for fever. Trend fever curve. Trend WBC count. Wound care per Dr. Kamara postoperatively 2. Microcytic anemia. Asymptomatic, no history of chronic anemia, trend H/H daily. Check iron studies. If negative, consider stool cultures to rule out GI bleed. 3. Peripheral vascular disease Patient has appointment to see Dr. Wilson next week for consultation 4. Diabetes mellitus Continue home basal insulin, 50 units of Levemir daily. Sliding scale insulin ACHS with FSBS, hypoglycemic protocol, consistent carbohydrate diet 5. 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 7. Chronic constipation. Continue Colace DVT prophylaxis: Teds and sequentials preoperatively, ordered Lovenox to begin tomorrow Disposition: Admitted inpatient to med/surg, expect greater than to midnight stay Vital Signs Vital Signs Date Time Temp Pulse Resp B/P (MAP) Pulse Ox O2 Delivery O2 Flow Rate FiO2 06/02/20 18:10 96.1 85 18 137/69 (91) 97 Room Air Laboratory Data Labs 24H Laboratory Tests 2 06/02/20 15:21: Coronavirus (COVID-19)(PCR) NEGATIVE 06/02/20 15:31: Immature Granulocyte % (Auto) 0.5, Neutrophils (%) (Auto) 71.7H, Lymphocytes (%) (Auto) 18.1L, Monocytes (%) (Auto) 7.8H, Eosinophils (%) (Auto) 1.4, Basophils (%) (Auto) 0.5, Neutrophils # (Auto) 6.3, Lymphocytes # (Auto) 1.6, Monocytes # (Auto) 0.7, Eosinophils # (Auto) 0.1, Basophils # (Auto) 0.0, Nucleated Red Blood Cells % (auto) 0.0, Erythrocyte Sedimentation Rate 76H, Anion Gap 6L, Glomerular Filtration Rate > 60.0, Calcium Level 8.8, C-Reactive Protein, Quantitative 4.82H 06/02/20 15:33: Lactic Acid Level 1.1 CBC/BMP Laboratory Tests 06/02/20 15:31 Microbiology Microbiology 06/02/20 Blood Culture, Received Pending 06/02/20 Blood Culture, Received Pending Home Medications Scheduled Clindamycin HCl (Clindamycin HCl) 300 Mg Capsule, 300 MG PO Q8H FOR 10 DAYS, STARTED 06/01/20 Docusate Sodium (Colace) 100 Mg Capsule, 100 MG PO QHS Insulin Glargine,Hum.rec.anlog (Lantus Solostar) 100 Unit/1 Ml Insuln.pen, 50 UNITS SC DAILY Lisinopril (Lisinopril) 20 Mg Tab, 20 MG PO QHS Penicillin V Potassium (Penicillin V Potassium) 500 Mg Tablet, 500 MG PO Q8H FOR 10 DAYS, STARTED 06/01/20 Risperidone (Risperidone) 0.25 Mg Tablet, 0.25 MG PO QHS Allergies Coded Allergies: No Known Allergies (Verified Allergy, Unknown, 05/13/19) GME ATTESTATION GME ATTESTATION My faculty preceptor for this patient encounter was physically present during the encounter and was fully available. All aspects of the patient interview, examination, medical decision making process, and medical care plan development were reviewed and approved by the faculty preceptor. The faculty preceptor is aware and concurs with the plan as stated in the body of this note and will attest to such by his/her cosignature. ATTENDING NOTE Pt seen and examined at bedside. I agree with resident HPI, past surgical, family, social history, PE, assessment and plan. IRAM YBARRA D.O. Jun 02, 2020 18:54 JEAN RODRIGUEZ MD Jun 03, 2020 01:23
[2020-06-02] MEDS ORDERED: GENTAMICIN SULF 80MG/2ML VIAL As Ordered ONE (18:59)
[2020-06-02] MEDS ORDERED: VANCOMYCIN 1000MG/20ML VIAL As Ordered ONE (19:00)
[2020-06-02] MEDS ORDERED: KETAMINE HCL 200 MG/20 ML VIAL As Ordered ONE (19:20)
[2020-06-02] MEDS ORDERED: ONDANSETRON 4MG/2ML VIAL IV PRN (20:15)
[2020-06-02] MEDS ORDERED: LR 1,000 ML IV SCH (20:15)
[2020-06-02] MEDS ORDERED: PERCOCET 5MG/325MG TAB PO PRN ×2 (20:15→20:30)
[2020-06-02] MEDS ORDERED: MEPERIDINE INJ 25 MG/ML VIAL (J2175) IV PRN (20:15)
[2020-06-02] MEDS ORDERED: METOCLOPRAMIDE INJ 10MG/2ML VIAL (J2765 PER 1) IV PRN (20:15)
[2020-06-02] MEDS ORDERED: fentaNYL 100 MCG/2 ML INJECTION (J3010) IV PRN (20:15)
[2020-06-02] MEDS ORDERED: lisinopriL 20 MG TAB PO SCH (21:00)
[2020-06-02] MEDS: HumaLOG INSULIN (NovoLOG) PER UNIT SC SCH (21:00)
[2020-06-02] MEDS ORDERED: DOCUSATE SODIUM 100 MG CAP PO SCH (21:00)
[2020-06-02] MEDS ORDERED: risperiDONE 0.25 MG TAB PO SCH (21:00)
[2020-06-02] MEDS ORDERED: HumaLOG INSULIN (NovoLOG) PER UNIT SC SCH (21:00)
[2020-06-02 21:15] VITALS: BP 112/81
[2020-06-02 21:45] VITALS: BP 127/72
[2020-06-02] MEDS: lisinopriL 20 MG TAB PO SCH (22:10)
[2020-06-02] MEDS: DOCUSATE SODIUM 100 MG CAP PO SCH (22:11)
[2020-06-02 22:15] VITALS: BP 122/70
[2020-06-02] MEDS: VANCOMYCIN HCL 1,000 MG, VIAL MATE ADAPTER 1 EACH in D5W 250 ML IV SCH (22:40)
[2020-06-02 23:15] VITALS: BP 120/69
--- NOTE | 2020-06-02 23:18 | PHACANCOPD ---
PHARMACY VANCOMYCIN DOSING Pt Demographics Demographics Patient Age:59 , Weight:98.900 , Gender: female Adjusted Body Weight Date: 06/02/20, Adjusted Body Weight: [76.5] Kg Events Past 24 Hours Events Past 24 Hours: NO: Dialysis, Diuretic Therapy, Change in CrCl, Fever, Elevation in WBC, Pending Diagnostics, Pending Procedures, Other Vancomycin Vancomycin indication: OSTEOMYELITIS Vancomycin Target Ranges: 15-20 mcg/ml Vancomycin Load Y/N: Yes Load Dose Date Time Vancomycin Load Dose: 2G Date: 06/02/20 Time: Vancomycin Dose Date: 06/02/20. Current Vancomycin Dose: [1G IV Q12H] Intermittent Dosing?: No Labs Labs Item Value Date Time White Blood Count 8.8 10^3/uL 06/02/20 1531 Creatinine 0.95 MG/DL 06/02/20 1531 C-Reactive Protein, Quantitative 4.82 MG/DL H 06/02/20 1531 Micro Microbiology 06/02/20 Wound Culture, Received Pending 06/02/20 Anaerobic Culture, Received Pending 06/02/20 Blood Culture, Received Pending 06/02/20 Blood Culture, Received Pending Creatinine Clearance Date:06/02/20. Creatinine Clearance: [76ML/MIN ADJUSTED]. Pending Labs VANCOMYCIN TROUGH 06/04/20 @08:00 Assessment and Plan Maintaining Current Dose?: Yes Reason for dose change: No Dose Change Pharmacist Note Pharmacist Note Date: 06/02/20. Pharmacist note:Pt is a 59 year old female being treated for osteomyelitis goal trough 15-20mcg/ml. She was last treated with vancomycin here at [facility] in 2012. To achieve goal a 2g vancomycin loading dose was started 06/02/20 @21:00. Maintenance therapy will consist of 1g vancomycin IV every 12 hours. A trough is schedule for 06/04/20 @08:00. We will continue to monitor and adjust the dose as needed. SRUT[facility] Jun 02, 2020 23:18
[2020-06-02] MEDS: risperiDONE 0.25 MG TAB PO SCH (23:34)
[2020-06-03] VITALS (8 sets, daily range): BP systolic 93–143; BP diastolic 60–71
[2020-06-03 07:27] LABS: PERCENT SATURATION 10.1 % (13.2-45.0)
[2020-06-03] MEDS ORDERED: HumaLOG INSULIN (NovoLOG) PER UNIT SC SCH (07:30)
--- NOTE | 2020-06-03 08:08 | REP ---
Clinical: Postoperative baseline. Technique: Portable AP, lateral, oblique views of the left foot. Findings: The patient is status post amputation through the mid fifth metatarsal bone. Overlying postsurgical changes noted. Remainder of the osseous structures demonstrate age-related osteopenia and degenerative changes. Evidence for peripheral vascular disease noted. Impression: Status post partial amputation through the fifth metatarsal bone. Electronically Signed by Gerard Ray MD 06/03/2020 08:00 A
[2020-06-03] MEDS: LEVEMIR (INSULIN DETEMIR) 1 UNITS/0.01ML SC SCH (08:56)
[2020-06-03] MEDS: VANCOMYCIN HCL 1,000 MG, VIAL MATE ADAPTER 1 EACH in D5W 250 ML IV SCH (08:56)
[2020-06-03] MEDS: ENOXAPARIN 40MG/0.4ML SYRINGE (J1650 PER 10MG) SC SCH (08:57)
[2020-06-03] MEDS: PERCOCET 5MG/325MG TAB PO PRN ×2 (08:57→17:51)
[2020-06-03] MEDS: HumaLOG INSULIN (NovoLOG) PER UNIT SC SCH ×4 (08:57→21:00)
[2020-06-03] MEDS ORDERED: LEVEMIR (INSULIN DETEMIR) 1 UNITS/0.01ML SC SCH (09:00)
[2020-06-03] MEDS ORDERED: ENOXAPARIN 40MG/0.4ML SYRINGE (J1650 PER 10MG) SC SCH (09:00)
[2020-06-03] MEDS: lisinopriL 20 MG TAB PO SCH (21:00)
[2020-06-03] MEDS: risperiDONE 0.25 MG TAB PO SCH (21:53)
[2020-06-03] MEDS: DOCUSATE SODIUM 100 MG CAP PO SCH (21:53)
[2020-06-03] MEDS ORDERED: cefTRIAXone SOD 2 GM in D5W MINI-BAG PLUS 50 ML IV SCH (22:00)
--- NOTE | 2020-06-03 22:41 | IPNPDOC ---
Date Seen The patient was seen on 06/03/20. Progress Note SUBJECTIVE: Patient seen and examined at bedside. OBJECTIVE PHYSICAL EXAMINATION: VITAL SIGNS: Please see below. GENERAL: HEENT: CARDIOVASCULAR: . RESPIRATORY: . ABDOMINAL: EXTREMITIES: NEUROLOGICAL: PSYCHOLOGICAL: LABORATORY DATA, IMAGING STUDIES, MICROBIOLOGY: Please see below. ASSESSMENT AND PLAN: 59-year-old female who presented to the ED at the instruction of Dr. Kamara to be admitted for surgical excision of the fifth metatarsal on the left foot due to osteomyelitis. Pt is now POD#0. PLAN: 1. Osteomyelitis of the left fifth metatarsal Dr. Kamara consulted for surgical intervention -Pt is POD#0 cont. IV vancomycin and IV ceftriaxone with de-escalation pending culture results. Blood cultures 2 pending. Tylenol for fever. Trend fever curve. Trend WBC count. Wound care per Dr. Kamara postoperatively 2. Microcytic anemia. Asymptomatic, no history of chronic anemia, trend H/H daily. Check iron studies. If negative, consider stool cultures to rule out GI bleed. 3. Peripheral vascular disease Patient has appointment to see Dr. Wilson next week for consultation 4. Diabetes mellitus Continue home basal insulin, 50 units of Levemir daily. Sliding scale insulin ACHS with FSBS, hypoglycemic protocol, consistent carbohydrate diet 5. 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 7. Chronic constipation. Continue Colace DVT prophylaxis: lovenox Disposition: home pending clinical improvement VS, I&O, 24H, Fishbone Vital Signs/I&O Vital Signs Date Time Temp Pulse Resp B/P (MAP) Pulse Ox O2 Delivery O2 Flow Rate FiO2 06/03/20 18:21 18 Room Air 06/03/20 14:00 97.8 82 140/60 (86) 92 06/02/20 20:00 10 I&O- Last 24 Hours up to 6 AM 06/03/20 06:00 Intake Total 1310 ml Output Total 2560 ml Balance -1250 ml Laboratory Data 24H LABS Laboratory Tests 2 06/03/20 06:44: Iron Level 22L, Total Iron Binding Capacity 217L, Transferrin % Saturation 10.1L, Ferritin 136 06/03/20 07:57: Bedside Glucose (Misc Panel) 220H 06/03/20 11:36: Bedside Glucose (Misc Panel) 263H 06/03/20 17:15: Bedside Glucose (Misc Panel) 108 06/03/20 20:47: Bedside Glucose (Misc Panel) 203H Microbiology Microbiology 06/02/20 Wound Culture, Received Pending 06/02/20 Anaerobic Culture, Received Pending 06/02/20 Blood Culture - Preliminary, Resulted No growth after 24 hours . All specim... 06/02/20 Blood Culture - Preliminary, Resulted No growth after 24 hours . All specim... JEAN RODRIGUEZ MD Jun 03, 2020 22:41
[2020-06-03] MEDS ORDERED: cefTRIAXone SOD 2 GM VIAL (J0696 PER 250MG) IM SCH (22:45)
[2020-06-04] MEDS: VANCOMYCIN HCL 1,000 MG, VIAL MATE ADAPTER 1 EACH in D5W 250 ML IV SCH ×2 (00:35→09:30)
[2020-06-04 06:00] VITALS: BP 101/70
[2020-06-04 08:50] LABS: HEMATOCRIT 33.2 % (36.0-47.0); HEMOGLOBIN 10.1 g/dl (12.0-15.5); MEAN CORPUSCULAR HEMOGLOBIN 24.3 pg (27.0-33.0); MEAN CORPUSCULAR HGB CONC 30.4 g/dl (32.0-36.5); MEAN CORPUSCULAR VOLUME 79.8 fl (80.0-96.0); PLATELET COUNT, AUTOMATED 383 10^3/uL (150-450); RED BLOOD COUNT 4.16 10^6/uL (4.00-5.40)
[2020-06-04 09:18] LABS: BLOOD UREA NITROGEN 9 MG/DL (7-18); CARBON DIOXIDE LEVEL 29 MEQ/L (21-32); CHLORIDE LEVEL 101 MEQ/L (98-107); CREATININE FOR GFR 0.79 MG/DL (0.55-1.30); GLOMERULAR FILTRATION RATE > 60.0 (>45); GLUCOSE, FASTING 218 MG/DL (70-100); POTASSIUM SERUM 4.5 MEQ/L (3.5-5.1); SODIUM LEVEL 136 MEQ/L (136-145); VANCOMYCIN LEVEL TROUGH 11.8 UG/ML (10.0-20.0)
[2020-06-04] MEDS: LEVEMIR (INSULIN DETEMIR) 1 UNITS/0.01ML SC SCH (09:29)
[2020-06-04] MEDS: ENOXAPARIN 40MG/0.4ML SYRINGE (J1650 PER 10MG) SC SCH (09:29)
[2020-06-04] MEDS: HumaLOG INSULIN (NovoLOG) PER UNIT SC SCH (09:30)
[2020-06-06] MEDS ORDERED: HumaLOG INSULIN (NovoLOG) PER UNIT ONE ×2 (01:31→06:21)
[2020-06-06] MEDS ORDERED: ENOXAPARIN 40MG/0.4ML SYRINGE (J1650 PER 10MG) ONE (06:21)
[2020-06-06] MEDS ORDERED: LEVEMIR (INSULIN DETEMIR) 1 UNITS/0.01ML ONE (06:21)
[2020-06-08] MEDS ORDERED: risperiDONE 0.25 MG TAB ONE (11:30)
[2020-07-21 08:43] LABS: GLUCOSE, FASTING 163 MG/DL (70-100)
[2020-07-21 08:44] LABS: BLOOD UREA NITROGEN 9 MG/DL (7-18); CALCIUM LEVEL 9.1 MG/DL (8.8-10.2); CARBON DIOXIDE LEVEL 29 mmol/L (20-29); CHLORIDE LEVEL 103 MEQ/L (98-107); CREATININE FOR GFR 0.85 MG/DL (0.55-1.30); GLOMERULAR FILTRATION RATE > 60.0 (>45); POTASSIUM SERUM 4.3 MEQ/L (3.5-5.1); SODIUM LEVEL 139 MEQ/L (136-145)
[2020-08-24 08:34] LABS: HEMATOCRIT 33.2 % (36.0-47.0); MEAN CORPUSCULAR HEMOGLOBIN 24.2 pg (27.0-33.0); MEAN CORPUSCULAR HGB CONC 30.1 g/dl (32.0-36.5); MEAN CORPUSCULAR VOLUME 80.4 fl (80.0-96.0); PLATELET COUNT, AUTOMATED 373 10^3/uL (150-450); RED BLOOD COUNT 4.13 10^6/uL (4.00-5.40); WHITE BLOOD COUNT 6.3 10^3/uL (4.0-10.0)
== END 2020-06-06 18:30 | disposition home or self-care (01) | DRG 617 ==
LOC: M ED 13:58 → M ED INP 18:26 → M ED 18:29 → M MS5PR 21:00
PROVIDERS: ADMIT Internal Medicine; ATTEND Internal Medicine
PROC: 0Y6Y0Z0 Detachment at Left 5th Toe, Complete, Open Approach (ICD-10-PCS; principal; 2020-06-02 17:00)
DX: E11.621 Type 2 diabetes mellitus with foot ulcer (principal); G10 Huntington's disease; M86.172 Other acute osteomyelitis, left ankle and foot; D50.9 Iron deficiency anemia, unspecified; E11.51 Type 2 diabetes mellitus with diabetic peripheral angiopathy without gangrene; I70.245 Atherosclerosis of native arteries of left leg with ulceration of other part of foot; I10 Essential (primary) hypertension; K59.00 Constipation, unspecified; Z79.899 Other long term (current) drug therapy; Z88.8 Allergy status to other drugs, medicaments and biological substances; E66.9 Obesity, unspecified; B96.29 Other Escherichia coli [E. coli] as the cause of diseases classified elsewhere

== ENCOUNTER → 2020-07-03 | Outpatient (REF) | payer MEDICARE ==
[~2020-07-03] MED LIST changes: +CLIN300C5 PO; +COLA100C5 PO; +PENI500T PO; +ZOFR4TAB16 PO
== END ==
LOC: M LAB REF 14:33
PROVIDERS: ATTEND Surgery
DX: M86.172 Other acute osteomyelitis, left ankle and foot (principal)
CPT/HCPCS: 11044; 11047; 88304; 88311; G0463

== ENCOUNTER 2020-07-29 23:36 | Emergency (ER) | payer MEDICARE, OTHER, SELFPAY ==
[~2020-07-29] VITALS: Ht 167.6 cm; Wt 140.9 kg
[~2020-07-29 23:36] MED LIST changes: -ZOFR4TAB16 PO
[2020-07-29] MEDS ORDERED: NS 500 ML IV ONE (23:45)
[2020-07-30 00:39] LABS: BASO % 0.4 % (0.0-1.0); EOS % 0.1 % (0.0-3.0); HEMOGLOBIN 10.1 g/dl (12.0-15.5); LYMPH # 0.8 10^3/uL (1.5-5.0); LYMPH % 7.3 % (24.0-44.0); MEAN CORPUSCULAR HEMOGLOBIN 23.9 pg (27.0-33.0); MEAN CORPUSCULAR HGB CONC 30.6 g/dl (32.0-36.5); MEAN CORPUSCULAR VOLUME 78.2 fl (80.0-96.0); MONO # 0.5 10^3/uL (0.0-0.8); MONO % 4.3 % (0.0-5.0); NEUTROPHILS # 9.4 10^3/uL (1.5-8.5); NEUTROPHILS % 87.2 % (36.0-66.0); PLATELET COUNT, AUTOMATED 390 10^3/uL (150-450); RED BLOOD COUNT 4.22 10^6/uL (4.00-5.40); WHITE BLOOD COUNT 10.7 10^3/uL (4.0-10.0)
[2020-07-30] MEDS ORDERED: ZOFR4TAB16 PO (01:04)
[2020-07-30 01:46] VITALS: BP 136/58
== END 2020-07-30 02:11 | disposition home or self-care (01) ==
LOC: M ED 23:36
DX: K52.9 Noninfective gastroenteritis and colitis, unspecified (principal); E11.9 Type 2 diabetes mellitus without complications; I10 Essential (primary) hypertension; G10 Huntington's disease; Z79.4 Long term (current) use of insulin; Z79.899 Other long term (current) drug therapy

== ENCOUNTER → 2020-08-14 | Outpatient (REF) | payer MEDICARE, OTHER ==
[~2020-08-14] MED LIST changes: +ZOFR4TAB16 PO
== END ==
LOC: M LAB REF 16:09
PROVIDERS: ATTEND Physician Assistant
DX: M86.10 Other acute osteomyelitis, unspecified site (principal); E11.621 Type 2 diabetes mellitus with foot ulcer

== ENCOUNTER → 2020-08-24 | Outpatient (REF) | payer MEDICARE, OTHER ==
[2020-08-24 11:27] LABS: BASO # 0.1 10^3/uL (0.0-0.2); BASO % 0.7 % (0.0-1.0); EOS # 0.2 10^3/uL (0.0-0.5); EOS % 2.5 % (0.0-3.0); HEMATOCRIT 33.5 % (36.0-47.0); LYMPH # 1.2 10^3/uL (1.5-5.0); MEAN CORPUSCULAR HGB CONC 29.9 g/dl (32.0-36.5); MEAN CORPUSCULAR VOLUME 80.5 fl (80.0-96.0); MONO # 0.6 10^3/uL (0.0-0.8); MONO % 7.7 % (0.0-5.0); NEUTROPHILS # 5.9 10^3/uL (1.5-8.5); NEUTROPHILS % 73.6 % (36.0-66.0); PLATELET COUNT, AUTOMATED 365 10^3/uL (150-450); RED BLOOD COUNT 4.16 10^6/uL (4.00-5.40); WHITE BLOOD COUNT 8.1 10^3/uL (4.0-10.0)
[2020-08-24 11:34] LABS: ALBUMIN 2.9 GM/DL (3.2-5.2); ALT/SGPT 9 U/L (12-78); BILIRUBIN,TOTAL 0.7 MG/DL (0.2-1.0); BLOOD UREA NITROGEN 16 MG/DL (7-18); C REACTIVE PROTEIN QUANTITATIV 8.26 MG/DL (0.00-0.30); CALCIUM LEVEL 9.2 MG/DL (8.8-10.2); CARBON DIOXIDE LEVEL 28 MEQ/L (21-32); CHLORIDE LEVEL 101 MEQ/L (98-107); CREATININE FOR GFR 0.82 MG/DL (0.55-1.30); GLOMERULAR FILTRATION RATE > 60.0 (>45); GLUCOSE, FASTING 179 MG/DL (70-100); POTASSIUM SERUM 4.2 MEQ/L (3.5-5.1); PREALBUMIN 10.4 MG/DL (20.0-40.0); SODIUM LEVEL 135 MEQ/L (136-145); TOTAL PROTEIN 7.1 GM/DL (6.4-8.2)
[2020-08-24 12:10] LABS: HEMOGLOBIN A1c 7.8 %
[2020-08-24 12:59] LABS: ERYTHROCYTE SEDIMENTATION RATE 65 mm/hr (0-30)
== END ==
LOC: M SHH 11:03
PROVIDERS: ATTEND Physician Assistant
DX: E11.621 Type 2 diabetes mellitus with foot ulcer (principal)

== ENCOUNTER → 2020-08-25 | Outpatient (CLI) | payer MEDICARE, OTHER ==
--- NOTE | 2020-08-28 13:02 | REP ---
UNILATERAL LEFT LOWER EXTREMITY DUPLEX ARTERIAL ULTRASOUND HISTORY: Diabetes mellitus with foot ulcer and left foot necrosis. SONOGRAPHIC DOPPLER FINDINGS: Ankle brachial index could not be achieved on the left due to inability to tolerate compression. Triphasic and biphasic waveforms are noted in the proximal leg arteries. Monophasic waveforms are noted at and distal to the popliteal on the left. There is evidence of stenosis in the distal anterior tibial artery on the left with some reversal seen in the distal posterior tibial artery. LEFT LOWR EXTREMITY ARTERIAL DOPPLER VELOCITY CHART LEFT PSV (cm/s) CAFE OPERATOR 173 Profunda 125 Proximal SFA 142 Mid SFA 184 Distal SFA 148 Popliteal 147 Proximal FEMI 29 Tibioperoneal trunk 105 Proximal BUILDING SERVICEMAN 101 Distal BUILDING SERVICEMAN 18 Distal EFMI 175 MTDD
== END ==
LOC: M RAD 12:19
PROVIDERS: ATTEND Physician Assistant
DX: E11.621 Type 2 diabetes mellitus with foot ulcer (principal); L97.524 Non-pressure chronic ulcer of other part of left foot with necrosis of bone; Z79.4 Long term (current) use of insulin

== ENCOUNTER → 2020-08-31 | Outpatient (REF) | payer MEDICARE ==
[2020-08-31 13:55] LABS: BASO # 0.1 10^3/uL (0.0-0.2); BASO % 0.5 % (0.0-1.0); EOS # 0.2 10^3/uL (0.0-0.5); EOS % 1.4 % (0.0-3.0); HEMATOCRIT 36.3 % (36.0-47.0); HEMOGLOBIN 10.9 g/dl (12.0-15.5); LYMPH # 1.7 10^3/uL (1.5-5.0); LYMPH % 15.6 % (24.0-44.0); MEAN CORPUSCULAR HEMOGLOBIN 24.3 pg (27.0-33.0); MONO # 0.8 10^3/uL (0.0-0.8); MONO % 7.1 % (0.0-5.0); NEUTROPHILS % 74.8 % (36.0-66.0); PLATELET COUNT, AUTOMATED 541 10^3/uL (150-450); RED BLOOD COUNT 4.48 10^6/uL (4.00-5.40); WHITE BLOOD COUNT 10.6 10^3/uL (4.0-10.0)
[2020-08-31 14:26] LABS: ALBUMIN 3.1 GM/DL (3.2-5.2); BILIRUBIN,TOTAL 0.5 MG/DL (0.2-1.0); CALCIUM LEVEL 9.3 MG/DL (8.8-10.2); CHOLESTEROL RISK RATIO 3.27 (<5); CREATININE FOR GFR 1.02 MG/DL (0.55-1.30); FREE T4 1.57 NG/DL (0.76-1.46); GLOMERULAR FILTRATION RATE 58.7 (>45); POTASSIUM SERUM 4.7 MEQ/L (3.5-5.1); THYROID STIMULATING HORMONE 2.09 uIU/ML (0.358-3.740); TOTAL PROTEIN 7.9 GM/DL (6.4-8.2)
[2020-08-31 14:28] LABS: TOTAL 25(OH) VITAMIN D 17.7 NG/ML (30.0-100.0)
== END ==
LOC: M LAB REF 13:18
PROVIDERS: ATTEND Nurse Practitioner Family
DX: R26.81 Unsteadiness on feet (principal); E66.01 Morbid (severe) obesity due to excess calories; E11.40 Type 2 diabetes mellitus with diabetic neuropathy, unspecified; E55.9 Vitamin D deficiency, unspecified; E11.65 Type 2 diabetes mellitus with hyperglycemia; E11.621 Type 2 diabetes mellitus with foot ulcer

== ENCOUNTER → 2020-09-08 | Outpatient (POV) | payer MEDICARE ==
--- NOTE | 2020-09-10 08:43 | IRCOV ---
[facility] IR Consult Office Visit IR Consult Office Visit DATE: Sep 08, 2020 Patient agreed to this telephone consultation. I spent 30 minutes reviewing patient's records, imaging and talking to the patient. REASON FOR CONSULTATION/CHIEF COMPLAINT: Nonhealing left foot ulcer. HISTORY OF PRESENT ILLNESS: 60-year-old female with diabetes presents for nonhealing left lateral foot ulcer. She states this started in summer of 2019 and progressively got larger and then got infected. She was then treated with a fifth metatarsal amputation and multiple wound dbridements. She is currently under the care of wound care and states it is healing but slow. There are plans for hyperbaric oxygen therapy. Her diabetes is poorly controlled with her last hemoglobin A1c at 8. She does suffer with hypertension. She denies smoking. No prior heart attack or stroke. No chest pain, shortness of breath, orthopnea or paroxysmal nocturnal dyspnea. 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 She does not take aspirin or Plavix. She denies any prior left leg bypass and/or angiographic intervention. She is not incredibly ambulatory. ALLERGIES: Please see below. HOME MEDICATIONS: Please see below. PAST MEDICAL HISTORY: Hypertension Diabetes Hyperlipidemia Pulmonary embolus Hooper's chorea PAST SURGICAL HISTORY: Gallbladder surgery Right breast biopsy FAMILY HISTORY: Noncontributory. SOCIAL HISTORY: Nonsmoker. Denies alcohol or drugs. REVIEW OF SYSTEMS: Otherwise negative. PHYSICAL EXAMINATION: No video on patient side. LABORATORY DATA: 08/31/2020 hemoglobin 10.9 hematocrit 36.3 WBC 10.6 platelets 541 sodium 132 potassium 4.7 BUN 17 creatinine 1.02 GFR 58.7 hemoglobin A1c 8.0 LDL 95. 12/17/2019 INR 1.1 Imaging: I personally reviewed the ultrasound left lower extremity performed August 2020. There is popliteal and below-knee arterial disease with monophasic waveform. ASSESSMENT/PLAN: 60-year-old female with nonhealing left lower extremity ulcer and below-knee arterial disease. I agree patient would benefit from Angiogram and/or intervention at the same time if possible. We discussed the risks and benefits of the procedure and patient would like to proceed. We have scheduled the patient for the procedure. Thank you for this referral. CC Pauly Link Allergies Coded Allergies: No Known Allergies (Verified Allergy, Unknown, 05/13/19) Home Medications Scheduled Docusate Sodium (Colace), 100 MG PO QHS, (Reported) Insulin Glargine,Hum.rec.anlog (Lantus Solostar), 50 UNITS SC DAILY, (Reported) Lisinopril (Lisinopril), 20 MG PO QHS, (Reported) Risperidone (Risperidone), 0.25 MG PO QHS, (Reported) Scheduled PRN Ondansetron HCl (Zofran), 1 TAB PO Q6-8HP PRN for nausea/vomiting RADHA NAVAS MD Sep 10, 2020 08:43
== END ==
LOC: M TMIRPOV 10:15
PROVIDERS: ATTEND Radiology Diagnostic Radiology
DX: L97.529 Non-pressure chronic ulcer of other part of left foot with unspecified severity (principal); I10 Essential (primary) hypertension; E11.51 Type 2 diabetes mellitus with diabetic peripheral angiopathy without gangrene; E78.5 Hyperlipidemia, unspecified; G10 Huntington's disease; Z89.422 Acquired absence of other left toe(s); Z86.711 Personal history of pulmonary embolism

== ENCOUNTER → 2020-09-17 | Outpatient (CLI) | payer MEDICARE ==
[~2020-09-17] MED LIST changes: +ALTEPLASE 2MG/2ML VIAL As Ordered ONE; +ISOVUE-300 61% 50ML VIAL As Ordered ONE; +LIDOCAINE 1% MDV 20ML VIAL As Ordered ONE; +MEPERIDINE INJ 25 MG/ML VIAL (J2175) As Ordered ONE; +MIDAZOLAM INJ 2MG/2ML VIAL (J2250 PER 1MG) As Ordered ONE; +NITROGLYCERIN IN D5W 25MG/250ML (100MCG/ML) As Ordered ONE; +ONDANSETRON 4MG/2ML VIAL As Ordered ONE; +PROMETHAZINE INJ 25 MG/ML VIAL (J2550) As Ordered ONE; +diphenhydrAMINE 50MG/ML VIAL (J1200) As Ordered ONE; +fentaNYL 100 MCG/2 ML INJECTION (J3010) As Ordered ONE
--- NOTE | 2020-09-17 10:18 | IRHP ---
[facility] IR Pre-Procedure H & P General Date of Service: Sep 17, 2020 Procedure: Same Day Surgery Interval History and Physical I have seen the patient and reviewed last H & P performed within 30 days. There is no significant interval change. History of Present Illness Chief Complaint The patient is a 60-year-old female admitted with a reason for visit of Pad / Non Healing Ulcer. PRE-PROCEDURE DIAGNOSIS: PAd HEART: normal rate. LUNGS: normal breathing at rest. ASA Classification ASA Classification: III-Severe systemic dis. Mallampati Score: II NPO: Yes Problems with prior sedation: No Obstructive Sleep Apnea: No Plan moderate sedation Allergies Coded Allergies: No Known Allergies (Verified Allergy, Unknown, 05/13/19) Home Medications Scheduled Docusate Sodium (Colace), 100 MG PO QHS, (Reported) Insulin Glargine,Hum.rec.anlog (Lantus Solostar), 50 UNITS SC DAILY, (Reported) Lisinopril (Lisinopril), 20 MG PO QHS, (Reported) Risperidone (Risperidone), 0.25 MG PO QHS, (Reported) Scheduled PRN Ondansetron HCl (Zofran), 1 TAB PO Q6-8HP PRN for nausea/vomiting RADHA NAVAS MD Sep 17, 2020 10:18
--- NOTE | 2020-09-17 16:11 | POST-OPPD ---
Postoperative Procedure Note Date Of Procedure: Sep 17, 2020 Time Of Procedure: 14:00 PREOPERATIVE DIAGNOSIS: PAD POSTOPERATIVE DIAGNOSIS: same FINDINGS: left PT occlusion PROCEDURE: left PT angioplasty SURGEON: Shay ANESTHESIA: mod sed ESTIMATED BLOOD LOSS: < 5 ml COMPLICATIONS: none POSTOPERATIVE CONDITION: stable RADHA NAVAS MD Sep 17, 2020 16:11
[2020-09-17 19:00] VITALS: BP 145/60
--- NOTE | 2020-09-21 11:31 | POST-OPPD ---
Postoperative Procedure Note Date Of Procedure: Sep 17, 2020 Time Of Procedure: 16:00 FULL REPORT OF PROCEDURE. IR Left leg angiogram. IR Below-knee runoff arteriogram. IR Ultrasound-guided right common femoral artery access. IR Left posterior tibial artery angioplasty. IR Moderate sedation. Clinical Information:Nonhealing left lower extremity ulcers. Physician: Dr. Day. Procedure: The patient was advised of the benefits, risks, and alternatives of the procedure and informed consent was obtained. A time out was performed with verification of the patient's name, MRN, site of procedure, and type of procedure to be performed. The patient was positioned in the supine position on the angiographic table. The site was prepped and draped in the usual sterile fashion. Moderate sedation was performed by the physician including the presence of an independent trained RN, who assisted in monitoring the patient's level of consci ousness and physiological status. Following the administration of fentanyl and Versed, the physician spent 120 minutes of continuous dagz-dx-gfcx time with the patient. A chassis driver radiograph reveals calcified vasculature. Ultrasound of the right groin demonstrates patent right common femoral artery. Lidocaine was used for local anesthesia. The right common femoral artery was a ccessed, under ultrasound guidance with a microintroducer set. A short 0.018" [place] wire was inserted and the needle was exchanged for a 4 Fr microintroducer sheath. The guidewire and dilator were removed and a 0.035" [place] wire was placed into abdominal aorta. A 6 Fr sheath was placed over the wire. An Omni flush catheter was advanced over the wire under fluoroscopy guidance and used to catheterize the infrarenal abdominal aorta. A pelvic angiogram was performed. This demonstrates patent infrarenal abdominal aorta, bilateral common iliac, internal and external iliac arteries. The catheter in conjunction with the wire was used under fluoroscopic guidance to gain up and over access into the left common iliac artery. The Omni flush catheter was exchanged over the wire for a Glidecath. The Glidecath in conjunction with the wire was used to catheterize the left common iliac artery. An arteriogram was performed and this demonstrates patent left external and internal iliac arteries. Patent left common femoral artery. The catheter and wire were used under fluoroscopy guidance to catheterize the left common femoral artery. A left leg angiogram was performed. This demonstrates patent left common femoral, superficial femoral and profunda femoris. Angiography further down the left leg was performed and this demonstrates patent mid and distal left superficial femoral artery. Patent popliteal artery. Angiography runoff below the knee was performed and this demonstrates patent anterior tibial, peroneal and proximal posterior tibial artery. Runoff arteriogram all the way to the left foot was performed and demonstrates the left anterior tibial artery remains patent into the left foot. Peroneal artery remains patent to the ankle were it bifurcates. There are collaterals arising from the peroneal artery supplying the calcaneus. No medial or lateral plantar artery. There is microvascular disease in the foot. The proximal and mid posterior tibial artery is narrowed. The distal posterior tibial artery is occluded and calcified. The catheter was used in conjunction with the wire to catheterize the left popliteal artery. The catheter was removed of the wire. The short vascular sheath was exchange over the wire for a 6F 45 cm Destination sheath. This was positioned in the left common femoral artery. A crossing catheter was used in conjunction with a wire to catheterize the proximal posterior tibial artery. An angiogram was performed and this demonstrates successful catheterization of the proximal left posterior tibial artery. Occlusion of the distal left posterior tibial artery. The Crossing catheter and wire was used under fluoroscopy guidance to catheterize the mid left posterior tibial artery. Intermittent injection of contrast confirmed intraluminal location. Further distal catheterization was not possible. The catheter was removed over the wire. A 2.5 x 220 mm Santhosh balloon was then advanced over the wire and positioned in the proximal and mid left posterior tibial artery. Angioplasty of the left posterior tibial artery was performed. Heparin was administered. The angioplasty balloon was deflated and removed over the wire. The Crossing c atheter was advanced over the wire under fluoroscopy guidance and used to try to recanalize the distal left posterior tibial artery and plantar artery. This was not possible. A post angioplasty left leg angiogram was then performed. This demonstrates pres erved flow in SFA, profunda femoris and popliteal artery. However, there is cut off in the proximal left anterior tibial artery from distal embolization. The catheter in conjunction with the wire was then used to catheterize the left anterior tibial artery. Intermittent injection of contrast confirmed intraluminal location. 2 mg of tPA was then administered into the left anterior tibial artery. The catheter was retracted back to the popliteal artery and a below-knee runoff arteriogram was performed. This demonstrates persistent cut off in the proximal left anterior tibial artery and cut off in the mid left peroneal artery due to t hrombus. Flow in the left posterior tibial artery remains. The catheter in conjunction with the wire was then used to catheterize the left peroneal artery. 2 mg of tPA was administered into left peroneal artery. 100 g of nitroglycerin was administered into the peroneal artery. The catheter and wire was then used to be catheterize the left anterior tibial artery. Intraluminal injection of contrast confirmed intraluminal location. 100 of nitroglycerin was then administered into the left anterior tibial artery. After appropriate dwell time, follow-up angiography was performed. This demonstrates orthodoxy of flow in the proximal, mid and distal left anterior tibial artery but persistent cut off at the distal left anterior tibial and dorsalis pedis junction. Persistent cut off in the mid left peroneal artery. The catheter in conjunction with the wire was used to catheterize the left dorsalis pedis artery. Heparin was administered into the left dorsalis pedis arteries followed by nitroglycerin. After appropriate dwell time, follow-up angiography was performed and this demonstrates orthodoxy of flow in the distal anterior tibial artery and dorsalis pedis. The catheter was retracted back to the popliteal artery and angiography was performed. This demonstrates orthodoxy of flow in the left anterior tibial artery, peroneal artery and left posterior tibial artery. A final runoff arteriogram to the left foot was performed. This demonstrates orthodoxy of flow in the distal anterior tibial artery, peroneal artery and collateral branches supplying the left foot. The Catheter, wire and sheath were removed, pressure held and hemostasis achieved. A sterile dressing was applied to the site. The patient tolerated the procedure well and was returned to the PRU in stable condition. EBL: < 5 mL. Complications:Distal embolization during procedure appropriately treated with and responded to TPA, heparin and nitroglycerin, as detailed above. Impression: 1. Left leg angiogram demonstrates patent inflow. Patent left common iliac, internal and external iliac arteries. Patent left common femoral, superficial femoral and profunda femoris. 2. Patent popliteal artery. 3. Patent anterior tibial artery and patent dorsalis pedis. 4. Patent peroneal artery distally supplies collaterals to the calcaneus. Microvascular disease in the foot. 4. Occluded distal left posterior tibial artery and narrowing of the proximal and mid left posterior tibial artery. 5. Successful proximal and mid left posterior tibial artery angioplasty. Further distal recanalization was not possible from today's up and over access. We'll continue to monitor the wound and if needed do pedal access for posterior tibial artery recanalization. 6. Patient has been started on aspirin and Plavix to be continued indefinitely. 6. Follow-up in IR clinic in 2 weeks. Thank you for this referral. Cc RADHA Waters MD Sep 21, 2020 11:31
== END ==
LOC: M IRPRO 09:32
PROVIDERS: ATTEND Radiology Diagnostic Radiology
DX: I70.249 Atherosclerosis of native arteries of left leg with ulceration of unspecified site (principal); L97.929 Non-pressure chronic ulcer of unspecified part of left lower leg with unspecified severity; I74.3 Embolism and thrombosis of arteries of the lower extremities; Z79.899 Other long term (current) drug therapy
CPT/HCPCS: 37211; 37228; 75630; 75774; 99152; 99153; C1725; C1760; C1769; C1887; C1894; J1644; J2175; J2250; J2405; J2997; J3010; Q9967

== ENCOUNTER → 2020-10-27 | Outpatient (CLI) | payer MEDICARE ==
[~2020-10-27] MED LIST changes: -ALTEPLASE 2MG/2ML VIAL As Ordered ONE; -CLIN300C5 PO; +CLIN300C6 PO; -ISOVUE-300 61% 50ML VIAL As Ordered ONE; -LIDOCAINE 1% MDV 20ML VIAL As Ordered ONE; -MEPERIDINE INJ 25 MG/ML VIAL (J2175) As Ordered ONE; -MIDAZOLAM INJ 2MG/2ML VIAL (J2250 PER 1MG) As Ordered ONE; -NITROGLYCERIN IN D5W 25MG/250ML (100MCG/ML) As Ordered ONE; -ONDANSETRON 4MG/2ML VIAL As Ordered ONE; -PROMETHAZINE INJ 25 MG/ML VIAL (J2550) As Ordered ONE; -diphenhydrAMINE 50MG/ML VIAL (J1200) As Ordered ONE; -fentaNYL 100 MCG/2 ML INJECTION (J3010) As Ordered ONE
--- NOTE | 2020-10-27 13:59 | REP ---
INDICATION: CHRONIC ULCER RT HEEL AND MIDFOOT W/ DIABETES. COMPARISON: No comparison.. TECHNIQUE: Right lower extremity arterial Doppler sonography. FINDINGS: Ankle brachial index could not be assessed as the patient was not willing to have the leg compressed. Exam quality is inhibited some degree by patient body habitus. Extensive plaquing is seen throughout. Heavily calcified distal anterior tibial and posterior tibial arteries are noted. Monophasic arterial Doppler waveforms are noted in the proximal anterior tibial artery and in the distal posterior and distal anterior tibial arteries on the right. Right lower extremity arterial Doppler velocity chart: Right DISPERSION MIXER PSV 196 cm/S/194 cm/S Profundal 115 Proximal SFA 126/110 Mid SFA 109/101 Distal SFA 98/98 Popliteal 101 Proximal FEMI 77 Tibial-peroneal trunk not seen Proximal PVC LOADER not seen Distal PVC LOADER 890 Distal FEMI 117. IMPRESSION: Atherosclerotic disease as noted above. <Electronically signed by Garcia Bland > 10/27/20 [id number]
== END ==
LOC: M RAD 11:21
PROVIDERS: ATTEND Physician Assistant
DX: E11.621 Type 2 diabetes mellitus with foot ulcer (principal); L97.411 Non-pressure chronic ulcer of right 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

== ENCOUNTER → 2020-11-24 | Outpatient (POV) | payer MEDICARE ==
[~2020-11-24] MED LIST changes: +ASPI81TA26 PO; -LISI-538 PO; +LISI20TA33 PO; +PLAV1TAB2 PO
--- NOTE | 2020-11-26 12:16 | IRCOV ---
[facility] IR Consult Office Visit IR Consult Office Visit DATE: Nov 24, 2020 Patient agreed to this telephone consultation. I spent 30 minutes reviewing patient's records, imaging and talking to the patient. REASON FOR CONSULTATION/CHIEF COMPLAINT: Right lower extremity nonhealing wound. HISTORY OF PRESENT ILLNESS: 60-year-old female with obesity, diabetes, hypertension, hyperlipidemia and Ripton's, presents with nonhealing right heel ulcer. She is seen by wound care. Patient states this ulcer has been there for 2 months and getting bigger. She is currently in an Unna boot. She denies any pain at the site. She does suffer with diabetic neuropathy. She uses a walker to walk. She sleeps in a recliner and states her right leg hurts with elevation. She has to hang it over the edge of the recliner for relief. She does have left lower extremity PAD which was previously treated by myself in September 2020 with below-knee posterior tibial artery angioplasty. She states her left leg felt better after that intervention and the left lower extremity wound is almost completely healed. She currently takes aspirin and Plavix. Patient denies chest pain, shortness of breath, orthopnea or paroxysmal nocturnal dyspnea. ALLERGIES: Please see below. HOME MEDICATIONS: Please see below. PAST MEDICAL HISTORY: Hypertension Diabetes Hyperlipidemia Pulmonary embolus Ripton's PAST SURGICAL HISTORY: Gallbladder surgery Right breast biopsy Left lower extremity angioplasty FAMILY HISTORY: Noncontributory SOCIAL HISTORY: Nonsmoker. Denies alcohol or drugs. REVIEW OF SYSTEMS: Otherwise negative. PHYSICAL EXAMINATION: No video on patient side. LABORATORY DATA: No recent labs. Imaging: I personally reviewed the ultrasound right lower extremity performed in October 2020. SFA and profunda femoris are patent. Below-knee arterial disease with monophasic waveforms in FEMI and PRODUCTION ENGINEER and areas of stenosis. I reviewed the prior angiography performed in September 2020. Right sided inflow is patent with patent common iliac and external iliac artery. ASSESSMENT/PLAN: 60-year-old female with right lower extremity rest pain and nonhealing heel ulcer. 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 I agree she would benefit from angiography and intervention if possible. We discussed the risks and benefits of the procedure and patient would like to proceed. We'll schedule the patient for the procedure. Thank you for this referral. CC Pauly Link Allergies Coded Allergies: No Known Allergies (Verified Allergy, Unknown, 05/13/19) Home Medications Scheduled Docusate Sodium (Colace), 100 MG PO QHS, (Reported) Insulin Glargine,Hum.rec.anlog (Lantus Solostar), 50 UNITS SC DAILY, (Reported) Lisinopril (Lisinopril), 20 MG PO QHS, (Reported) Risperidone (Risperidone), 0.25 MG PO QHS, (Reported) Scheduled PRN Ondansetron HCl (Zofran), 1 TAB PO Q6-8HP PRN for nausea/vomiting RADHA NAVAS MD Nov 26, 2020 12:16
== END ==
LOC: M IRPOV 08:46
PROVIDERS: ATTEND Radiology Diagnostic Radiology
DX: I70.234 Atherosclerosis of native arteries of right leg with ulceration of heel and midfoot (principal); L97.419 Non-pressure chronic ulcer of right heel and midfoot with unspecified severity; E11.621 Type 2 diabetes mellitus with foot ulcer; E11.40 Type 2 diabetes mellitus with diabetic neuropathy, unspecified; I10 Essential (primary) hypertension; E78.5 Hyperlipidemia, unspecified; E66.9 Obesity, unspecified; G10 Huntington's disease; Z79.01 Long term (current) use of anticoagulants; Z79.4 Long term (current) use of insulin; Z79.82 Long term (current) use of aspirin; Z99.89 Dependence on other enabling machines and devices

== ENCOUNTER → 2020-12-10 | Outpatient (CLI) | payer MEDICARE ==
[~2020-12-10] MED LIST changes: +ISOVUE-300 61% 50ML VIAL As Ordered ONE; +LIDOCAINE 1% MDV 20ML VIAL As Ordered ONE; +LISI-538 PO; -LISI20TA33 PO; +MIDAZOLAM INJ 2MG/2ML VIAL (J2250 PER 1MG) As Ordered ONE; +PROMETHAZINE INJ 25 MG/ML VIAL (J2550) As Ordered ONE; +diphenhydrAMINE 50MG/ML VIAL (J1200) As Ordered ONE; +fentaNYL 100 MCG/2 ML INJECTION (J3010) As Ordered ONE
[2020-12-10 10:27] LABS: HEMATOCRIT 36.6 % (36.0-47.0); HEMOGLOBIN 11.1 g/dl (12.0-15.5); MEAN CORPUSCULAR HEMOGLOBIN 24.5 pg (27.0-33.0); MEAN CORPUSCULAR HGB CONC 30.3 g/dl (32.0-36.5); MEAN CORPUSCULAR VOLUME 80.8 fl (80.0-96.0); PLATELET COUNT, AUTOMATED 404 10^3/uL (150-450); RED BLOOD COUNT 4.53 10^6/uL (4.00-5.40); WHITE BLOOD COUNT 10.6 10^3/uL (4.0-10.0)
[2020-12-10 10:42] LABS: INR 1.02; PROTHROMBIN TIME 13.6 SECONDS (12.5-14.3)
[2020-12-10 10:49] LABS: BLOOD UREA NITROGEN 14 MG/DL (7-18); CALCIUM LEVEL 9.6 MG/DL (8.8-10.2); CARBON DIOXIDE LEVEL 30 MEQ/L (21-32); CHLORIDE LEVEL 100 MEQ/L (98-107); CREATININE FOR GFR 0.95 MG/DL (0.55-1.30); GLOMERULAR FILTRATION RATE > 60.0 (>45); GLUCOSE, FASTING 182 MG/DL (70-100); POTASSIUM SERUM 4.1 MEQ/L (3.5-5.1); SODIUM LEVEL 136 MEQ/L (136-145)
[2020-12-10 16:00] VITALS: BP 118/83
--- NOTE | 2020-12-11 11:25 | POST-OPPD ---
Postoperative Procedure Note Date Of Procedure: Dec 10, 2020 Time Of Procedure: 16:00 IR Right leg angiogram IR Below-knee runoff arteriogram. IR Ultrasound-guided left common femoral artery access. IR Moderate sedation. Clinical Information:Nonhealing right lower extremity ulcer. Physician: Dr. Day. Procedure: The patient was advised of the benefits, risks, and alternatives of the procedure and informed consent was obtained. A time out was performed with verification of the patient's name, MRN, site of procedure, and type of procedure to be performed. The patient was positioned in the supine position on the angiographic table. The site was prepped and draped in the usual sterile fashion. Moderate sedation was performed by the physician including the presence of an independent trained RN, who assisted in monitoring the patient's level of consciousness and physiological status. Following the administration of fentanyl and Versed, the physician spent 60 minutes of continuous xtus-ni-irfr time with the patient. A creel selector radiograph reveals no gross abnormality. Ultrasound of the left groin demonstrates patent left common femoral artery. Lidocaine was used for local anesthesia. The left common femoral artery was accessed, under ultrasound guidance with a microintroducer set. A short 0.018" [place] wire was inserted and the needle was exchanged for a 4 Fr microintroducer sheath. The guidewire and dilator were removed and a 0.035" [place] wire was placed into aorta. A 6 Fr sheath was placed over the wire. A flush catheter was advanced over the wire, under fluoroscopy guidance and used to catheterize the infrarenal abdominal aorta. A pelvic angiogram was performed. This demonstrates unremarkable infrarenal abdominal aorta. Patent bilateral common iliac and internal iliac arteries. Patent right external iliac artery. The catheter in conjunction with the wire was used under fluoroscopy guidance to gain up and over access into the right external iliac artery. A right leg angiogram was performed. This demonstrates patent right common femoral, superficial femoral and profunda femoris. Angiography further down the right leg was performed. This demonstrates patent distal superficial femoral artery and popliteal artery. A right below-knee arterial runoff was performed. This demonstrates patent anterior tibial artery and posterior tibial artery runoff into the right foot without stenosis or occlusion. The peroneal artery is congenitally small and taper off mid calf. There is microvascular disease within the right foot. Catheter, wire and sheath were removed. A Mynx device was used to close the left groin arteriotomy and hemostasis achieved. A sterile dressing was applied to the site. The patient tolerated the procedure well and was returned to the PRU in stable condition. EBL: < 5 mL. Complications:None. Impression: 1. Right leg angiogram demonstrates patent inflow and outflow. 2. Two vessel runoff to the right foot. 3. Microvascular disease in the right foot. Thank you for this referral. Cc RADHA Car MD Dec 11, 2020 11:25
== END ==
LOC: M IRPRO 09:32
PROVIDERS: ATTEND Radiology Diagnostic Radiology
DX: L97.819 Non-pressure chronic ulcer of other part of right lower leg with unspecified severity (principal)
CPT/HCPCS: 36246; 75710; 80048; 85027; 85610; 99152; 99153; C1760; C1769; C1887; C1894; G0269; J1200; J1644; J2250; J3010; Q9967

== ENCOUNTER 2020-12-23 12:13 | Emergency (ER) | payer MEDICARE ==
[~2020-12-23] VITALS: Ht 170.2 cm; Wt 159.1 kg
[~2020-12-23 12:13] MED LIST changes: -ISOVUE-300 61% 50ML VIAL As Ordered ONE; -LIDOCAINE 1% MDV 20ML VIAL As Ordered ONE; -LISI-538 PO; +LISI20TA33 PO; -MIDAZOLAM INJ 2MG/2ML VIAL (J2250 PER 1MG) As Ordered ONE; -PROMETHAZINE INJ 25 MG/ML VIAL (J2550) As Ordered ONE; -diphenhydrAMINE 50MG/ML VIAL (J1200) As Ordered ONE; -fentaNYL 100 MCG/2 ML INJECTION (J3010) As Ordered ONE
--- OUTSIDE RECORDS SUMMARY | 2020-12-23 12:58 | CCD ---
Author Author [facility] Organization [facility] Address Unknown Phone Unavailable Care Team Providers Care Laundry Laborer Name Role Phone Pauly Burger Unavailable PROBLEMS Type Condition ICD9-CM Code ULY64-CW Code Onset Dates Condition S tatus W/U Status Risk SNOMED Code Notes Problem Venous embolism and thrombos is of unspecified deep vessels of lower extremity 453.40 Active confirmed 815902629 Problem Diabetes with neurological m anifestations, type II or unspecified type, not stated as uncontrolled 250.60 Active confirmed 421 358517 Problem Need for prophylactic vaccination and inoculation, Influen za V04.81 Active confirmed 392533235 Problem Other specified myoneural disorders 358.8 Acti ve confirmed 001634762 Problem Encounter for long-term (current) use of anticoagulants V5 8.61 Active confirmed 474152074 Problem Migraine with aura, without mention of intractable migraine without mention of status migrainosus 346.00 Active confirmed 8597049 Problem Non-pressure chronic ulcer o f right 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 L97.411 Active confirmed 884556258 Problem Unspecified essential hypertension 401.9 Activ e confirmed 26605731 Problem Non-pressure chronic ulcer o f left heel and midfoot with fat layer exposed L97.422 Active confirmed 804132874 Problem Diabetes mellitus without me ntion of complication, type II or unspecified type, not stated as uncontrolled 250.00 Activ e confirmed 255924697 Problem Symptomatic menopausal or female climacteric states 627.2 Active confirmed 66038577 Problem Type 2 diabetes mellitus with foot ulcer E11.621 Active confirmed 326014885 Problem 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 Active confirmed 587947662 Problem Non-pressure chronic ulcer o f other part of right foot with fat layer exposed L97.512 Active confirmed 470967440 ALLERGIES Allergen (clinical drug ingredient) Drug/Non Drug Allergy do cumented on EMR Reaction Allergy Type Onset Date Status Hydrochlorothiazide-12.5 mg dizziness Drug Allergy Active ENCOUNTERS from 1959 to 2020-12-16 Encounter Location Date Provider Diagnosis [facility] [address] [place] [address] Dec Pauly Burger IMMUNIZATIONS Vaccine Route Administration Date Status Influenza (18 yrs & older) Flublok Unknown Aug 21, 2020 Others TDAP 0.5mL (Boostrix) Unknown Aug 02, 2011 Administer ed Hepatitis B Ped & Adol 0.5mL (Engerix-B) Unknown Jul Administered Influenza (6mo & up) Fluzone IM Intramuscular Aug 26, 2011 Ad ministered Influenza (6mo & up) Fluzone IM Intramuscular Aug 11, 2010 Ad ministered SOCIAL HISTORY Sex Assigned At : Social History Observation Description Sex Assigned At Unknown Alcohol Screening: Question Answer Notes Did you have a drink containing alcohol in the past year? No Points 0 Interpretation Negative REASON FOR REFERRAL No Information VITAL SIGNS No information MEDICATIONS Medication SIG (Take, Route, Frequency, Duration) Notes Start Da te End Date Status SM Aspirin Adult Low Strength 81 MG TAKE ONE TABLET BY MOUTH EVERY DAY Oral for 30 Active Clopidogrel Bisulfate 75 MG TAKE ONE TABLET BY MOUTH EVERY DAY Oral for 90 Active Imitrex 50 mg 1 tablet Orally at start of migraine headache pain Oct, Unknown Lisinopril 10 mg 1 tablet Orally Once a day for 30 day(s) Oct, Active Dulcolax Balance Active Iron 325 (65 Fe) MG 1 tablet Orally Once a day for 30 day(s) Not-Taking Glucostix glucose strip 1 strip daily for 30 day(s) Apr Active Metoclopramide HCl 10 mg 1 tab(s) Orally prn, migraine Oct, Unknown Vitamin D 1000 UNIT 1 tablet Orally Once a day Not-Taking Risperidone 0.25 MG 1 tab Orally Once a day Active Januvia 100 mg 1 tablet Orally Once a day for 30 day(s) Dec, Unknown NovoLog 100 UNIT/ML 12 ml Subcutaneous as needed Not-Taking Ferrous Sulfate 325 (65 Fe) MG TAKE ONE TABLET BY MOUTH TWIC E A DAY Oral for 30 Active DOK 100 MG 1 capsule as needed Orally Once a day Active Metformin HCl 500 mg 2 tabs Orally Twice a day for 30 day(s) March, Unknown Doxycycline Hyclate 100 MG 1 tablet Orally twice a day for 30 Days Not-Taking Lantus 100 UNIT/ML 50 ml Subcutaneous once daily Active Clopidogrel Bisulfate 75 MG 1 tablet Orally Once a day for 30 day(s) Active PROCEDURES No Information RESULTS No Results REASON FOR VISIT No Information MEDICAL (GENERAL) HISTORY Type Description Date Medical History hypertension Medical History diabetes mellitus Medical History mixed hyperlipidemia Medical History pulmonary embolus Medical History Dr Tigist weber Surgical History 1978 & 1981 Surgical History gallbladder 1982 Surgical History right breast biopsy, Dr Pink, benign 2 014 Surgical History LLE angioplasty 09/17/2020 Hospitalization History pulmonary emboli 02/20/2010 Hospitalization History LEFT FOOT WOUND 05/2020 Goals Section No Information Health Concerns No Information MEDICAL EQUIPMENT No Information MENTAL STATUS No Information FUNCTIONAL STATUS No Information ASSESSMENTS No Information PLAN OF TREATMENT Next Appt Details Provider Name:Pauly Burger, 12-25 03:00:00 PM, [address] [place], [address], Insurance Providers Payer Name Payer Address Payer Phone Insured Name Patient Relati onship to Insured Coverage Start Date Coverage End Date MEDICARE COMPLETE [facility] [address] [address] [facility] [id number] MARCELL MATOS self
--- OUTSIDE RECORDS SUMMARY | 2020-12-23 12:58 | CCD ---
Author Author [facility] Organization [facility] Address Unknown Phone Unavailable Care Team Providers Care Tool Polishing Machine Operator Name Role Phone Pauly Burger Unavailable PROBLEMS Type Condition ICD9-CM Code [id number] Code Onset Dates Condition S tatus W/U Status Risk SNOMED Code Notes Problem Venous embolism and thrombos is of unspecified deep vessels of lower extremity 453.40 Active confirmed 383753236 Problem Diabetes with neurological m anifestations, type II or unspecified type, not stated as uncontrolled 250.60 Active confirmed 421 033862 Problem Need for prophylactic vaccination and inoculation, Influen za V04.81 Active confirmed 129155822 Problem Other specified myoneural disorders 358.8 Acti ve confirmed 207235874 Problem Encounter for long-term (current) use of anticoagulants V5 8.61 Active confirmed 074686037 Problem Migraine with aura, without mention of intractable migraine without mention of status migrainosus 346.00 Active confirmed 7266838 Problem Non-pressure chronic ulcer o f right 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 L97.411 Active confirmed 023403950 Problem Unspecified essential hypertension 401.9 Activ e confirmed 87186191 Problem Non-pressure chronic ulcer o f left heel and midfoot with fat layer exposed L97.422 Active confirmed 138693569 Problem Diabetes mellitus without me ntion of complication, type II or unspecified type, not stated as uncontrolled 250.00 Activ e confirmed 373956735 Problem Symptomatic menopausal or female climacteric states 627.2 Active confirmed 12773184 Problem Type 2 diabetes mellitus with foot ulcer E11.621 Active confirmed 414624709 Problem 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 Active confirmed 125080354 Problem Non-pressure chronic ulcer o f other part of right foot with fat layer exposed L97.512 Active confirmed 138941622 ALLERGIES Allergen (clinical drug ingredient) Drug/Non Drug Allergy do cumented on EMR Reaction Allergy Type Onset Date Status Hydrochlorothiazide-12.5 mg dizziness Drug Allergy Active ENCOUNTERS from 1959 to 2020-12-19 Encounter Location Date Provider Diagnosis [facility] [address] [address] [place] [address] Dec Pauly Burger Type 2 diabetes mellitus with foot ulcer E11.621 and 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 IMMUNIZATIONS Vaccine Route Administration Date Status Influenza [...] REASON FOR REFERRAL No Information VITAL SIGNS Weight 290 lbs Dec, Height 5'5 3/4"(P) in Dec, BMI 47.16 kg/m2 Dec, Heart Rate 83 /min Dec, Respiratory Rate 20 /min Dec, Temperature 97.2 degrees Fahrenheit Dec, Oximetry 94 Dec, Blood pressure systolic 134 mm Hg Dec, Blood pressure diastolic 63 mm Hg Dec, MEDICATIONS Medication SIG (Take, Route, Frequency, Duration) [...] a day for 30 day(s) Active PROCEDURES from 1959 to 2020-12-19 Procedure Date Ordered Result Body Site Medication: 4% Lidocaine topical cream (Anecream) 5gm 2020-12-15 N/A Medication: 2% Lidocaine intradermal 2020-12-15 N/A RESULTS Component Value Reference Range Fingerstick blood sugar Reviewed date:12/16/2020 14:49:19 Interpretation: Performing Lab:[facility], [place] [address] Glucose REASON FOR VISIT BLE wounds MEDICAL (GENERAL) HISTORY Type Description Date Medical [...] No Information FUNCTIONAL STATUS No Information ASSESSMENTS Encounter Date Diagnosis Assessment Notes Treatment Notes Treatm ent Clinical Notes Dec, Type 2 diabetes mellitus with foot ulcer (ICD-10 - E11.621) Dressing changes 3X a week. 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 The dressing should follow those documented in the procedure note Next Appt Details 1 Week Reason: Provider Name:Paulyhpyllis Burger, 12-25 03:00:00 PM, [address] [place], [address], Insurance Providers Payer Name Payer Address Payer Phone Insured Name Patient Relati onship to Insured Coverage Start Date Coverage End Date MEDICARE COMPLETE [facility] [address] [address] [facility] [phone] MARCELL MATOS self
--- OUTSIDE RECORDS SUMMARY | 2020-12-23 12:59 | CCD ---
Author Author [facility] Organization [facility] Address Unknown Phone Unavailable Care Team Providers Care Process Mechanic Name Role Phone Pauly Burger Unavailable PROBLEMS Type Condition ICD9-CM Code [id number] Code Onset Dates Condition S tatus SNOMED Code Notes Problem Venous embolism and thrombos is of unspecified deep vessels of lower extremity 453.40 Active 528547987 Problem Diabetes with neurological m anifestations, type II or unspecified type, not stated as uncontrolled 250.60 Active 363630977 Problem Need for prophylactic vaccination and inoculation, Influen za V04.81 Active 512919356 Problem Other specified myoneural disorders 358.8 Acti ve 099356779 Problem Encounter for long-term (current) use of anticoagulants V5 8.61 Active 828168028 Problem Migraine with aura, without mention of intractable migraine without mention of status migrainosus 346.00 Active 684292 6 Problem Non-pressure chronic ulcer o f right 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 L97.411 Active 742715819 Problem Unspecified essential hypertension 401.9 Activ e 98316690 Problem Non-pressure chronic ulcer o f left heel and midfoot with fat layer exposed L97.422 Active 366129285 Problem Diabetes mellitus without me ntion of complication, type II or unspecified type, not stated as uncontrolled 250.00 Ac tive 115892482 Problem Symptomatic menopausal or female climacteric states 627.2 Active 22722836 Problem Type 2 diabetes mellitus with foot ulcer E11.621 Active 815619038 Problem 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 Active 562208033 Problem Non-pressure chronic ulcer o f other part of right foot with fat layer exposed L97.512 Active 930943606 ALLERGIES Allergen (clinical drug ingredient) Drug/Non Drug Allergy do cumented on EMR Reaction Allergy Type Onset Date Status Hydrochlorothiazide-12.5 mg dizziness Drug Allergy Active ENCOUNTERS from 1959 to 2020-11-20 Encounter Location Date Provider Diagnosis [facility] [address] [place] [address] Nov Pauly Burger IMMUNIZATIONS Vaccine Route Administration Date [...] Notes Start Da te End Date Status Ferrous Sulfate 325 (65 Fe) MG TAKE ONE TABLET BY MOUTH TWIC E A DAY Oral for 30 Active Clopidogrel Bisulfate 75 MG 1 tablet Orally Once a day for 30 day(s) Active Dulcolax Balance Active NovoLog 100 UNIT/ML 12 ml Subcutaneous as needed Not-Taking Doxycycline Hyclate 100 MG 1 tablet Orally twice a day for 30 Days Active SM Aspirin Adult Low Strength 81 MG TAKE ONE TABLET BY MOUTH EVERY DAY Oral for 30 Active Lantus 100 UNIT/ML 50 ml Subcutaneous once daily Active Metoclopramide HCl 10 mg 1 tab(s) Orally prn, migraine Oct, Unknown Januvia 100 mg 1 tablet Orally Once a day for 30 day(s) Dec, Unknown Risperidone 0.25 MG 1 tab Orally Once a day Active Iron 325 (65 Fe) MG 1 tablet Orally Once a day for 30 day(s) Not-Taking Clopidogrel Bisulfate 75 MG TAKE ONE TABLET BY MOUTH EVERY DAY Oral for 90 Active Lisinopril 10 mg 1 tablet Orally Once a day for 30 day(s) Oct, Active Glucostix glucose strip 1 strip daily for 30 day(s) Apr Active Imitrex 50 mg 1 tablet Orally at start of migraine headache pain Oct, Unknown DOK 100 MG 1 capsule as needed Orally Once a day Active Metformin HCl 500 mg 2 tabs Orally Twice a day for 30 day(s) March, Unknown Vitamin D 1000 UNIT 1 tablet Orally Once a day Not-Taking PROCEDURES No Information RESULTS No Results REASON FOR VISIT Supplies MEDICAL (GENERAL) HISTORY Type Description Date Medical [...] TREATMENT Next Appt Details Provider Name:Pauly Burger, 11-20 11:00:00 AM, [address] [place], [address], Provider Name:Pauly Burger, 11-27 01:00:00 PM, [address] [place], [address], Insurance Providers Payer Name Payer Address Payer Phone Insured Name Patient Relati onship to Insured Coverage Start Date Coverage End Date MEDICARE COMPLETE [employer] [address] [address] [facility] [id number] MARCELL MATOS self
--- OUTSIDE RECORDS SUMMARY | 2020-12-23 12:59 | CCD ---
Author Author [facility] Organization [facility] Address Unknown Phone Unavailable Care Team Providers Care Multi Site Leasing Consultant Name Role Phone Pauly Burger Unavailable PROBLEMS Type Condition ICD9-CM Code [id number] Code Onset Dates Condition S tatus SNOMED Code Notes Problem Venous embolism and thrombos is of unspecified deep vessels of lower extremity 453.40 Active 828973859 Problem Diabetes with neurological m anifestations, type II or unspecified type, not stated as uncontrolled 250.60 Active 165072799 Problem Need for prophylactic vaccination and inoculation, Influen za V04.81 Active 580403576 Problem Other specified myoneural disorders 358.8 Acti ve 038645239 Problem Encounter for long-term (current) use of anticoagulants V5 8.61 Active 660347167 Problem Migraine with aura, without mention of intractable migraine without mention of status migrainosus 346.00 Active 946355 6 Problem Non-pressure chronic ulcer o f right 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 L97.411 Active 552075604 Problem Unspecified essential hypertension 401.9 Activ e 07418353 Problem Non-pressure chronic ulcer o f left heel and midfoot with fat layer exposed L97.422 Active 367095714 Problem Diabetes mellitus without me ntion of complication, type II or unspecified type, not stated as uncontrolled 250.00 Ac tive 489748036 Problem Symptomatic menopausal or female climacteric states 627.2 Active 92565984 Problem Type 2 diabetes mellitus with foot ulcer E11.621 Active 542071014 Problem 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 Active 370581413 Problem Non-pressure chronic ulcer o f other part of right foot with fat layer exposed L97.512 Active 525076965 ALLERGIES Allergen (clinical drug ingredient) Drug/Non Drug Allergy do cumented on EMR Reaction Allergy Type Onset Date Status Hydrochlorothiazide-12.5 mg dizziness Drug Allergy Active ENCOUNTERS from 1959 to 2020-11-16 Encounter Location Date Provider Diagnosis [facility] [address] [place] [address] Nov Pauly Burger IMMUNIZATIONS Vaccine Route Administration [...] OF TREATMENT Next Appt Details Provider Name:Pauly Mcrae Tao, 11-20 11:00:00 AM, [address] [place], [address], Insurance Providers Payer Name Payer Address Payer Phone Insured Name Patient Relati onship to Insured Coverage Start Date Coverage End Date MEDICARE COMPLETE [facility] [address] [address] [facility] [phone] MARCELL MATOS self
--- OUTSIDE RECORDS SUMMARY | 2020-12-23 12:59 | CCD ---
Author Author [facility] Organization [facility] Address Unknown Phone Unavailable Care Team Providers Care Street Car Mechanic Name Role Phone Pauly Burger Unavailable PROBLEMS Type Condition ICD9-CM Code [id number] Code Onset Dates Condition S tatus SNOMED Code Notes Problem Venous embolism and thrombos is of unspecified deep vessels of lower extremity 453.40 Active 763145587 Problem Diabetes with neurological m anifestations, type II or unspecified type, not stated as uncontrolled 250.60 Active 066309986 Problem Need for prophylactic vaccination and inoculation, Influen za V04.81 Active 533574636 Problem Other specified myoneural disorders 358.8 Acti ve 743241395 Problem Encounter for long-term (current) use of anticoagulants V5 8.61 Active 656942920 Problem Migraine with aura, without mention of intractable migraine without mention of status migrainosus 346.00 Active 919945 6 Problem Non-pressure chronic ulcer o f right 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 L97.411 Active 163600208 Problem Unspecified essential hypertension 401.9 Activ e 47008540 Problem Non-pressure chronic ulcer o f left heel and midfoot with fat layer exposed L97.422 Active 398798661 Problem Diabetes mellitus without me ntion of complication, type II or unspecified type, not stated as uncontrolled 250.00 Ac tive 572735419 Problem Symptomatic menopausal or female climacteric states 627.2 Active 35390687 Problem Type 2 diabetes mellitus with foot ulcer E11.621 Active 724338990 Problem 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 Active 497640166 Problem Non-pressure chronic ulcer o f other part of right foot with fat layer exposed L97.512 Active 429510171 ALLERGIES Allergen (clinical drug ingredient) Drug/Non Drug Allergy do cumented on EMR Reaction Allergy Type Onset Date Status Hydrochlorothiazide-12.5 mg dizziness Drug Allergy Active ENCOUNTERS from 1959 to 2020-10-03 Encounter Location Date Provider Diagnosis [facility] [address] [place] [address] Sep Pauly Burger Type 2 diabetes mellitus with foot ulcer E11.621 ; Non-pressure chronic ulcer of other part of left foot with necrosis of bone L97.524 and Non-pressure chronic ulcer of right 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 L97.411 IMMUNIZATIONS Vaccine Route Administration Date Status Influenza [...] No Information VITAL SIGNS Weight 290 lbs Sep, Height 5'5 3/4"(P) in Sep, BMI 47.16 kg/m2 Sep, Heart Rate 80 /min Sep, Respiratory Rate 16 /min Sep, Temperature 97.5 degrees Fahrenheit Sep, Oximetry 97 Sep, Blood pressure systolic 145 mm Hg Sep, Blood pressure diastolic 77 mm Hg Sep, MEDICATIONS Medication SIG (Take, Route, Frequency, Duration) Notes Start Da te End Date Status Metformin HCl 500 mg 2 tabs Orally Twice a day for 30 day(s) March, Unknown Lantus 100 UNIT/ML 50 ml Subcutaneous once daily Active Glucostix glucose strip 1 strip daily for 30 day(s) Apr Active Risperidone 0.25 MG 1 tab Orally Once a day Active SM Aspirin Adult Low Strength 81 MG TAKE ONE TABLET BY MOUTH EVERY DAY Oral for 30 Active Clopidogrel Bisulfate 75 MG TAKE ONE TABLET BY MOUTH EVERY DAY Oral for 90 Active Ferrous Sulfate 325 (65 Fe) MG TAKE ONE TABLET BY MOUTH TWIC E A DAY Oral for 30 Active Doxycycline Hyclate 100 MG 1 tablet Orally twice a day for 30 Days Active Imitrex 50 mg 1 tablet Orally at start of migraine headache pain Oct, Unknown Januvia 100 mg 1 tablet Orally Once a day for 30 day(s) Dec, Unknown Iron 325 (65 Fe) MG 1 tablet Orally Once a day for 30 day(s) Not-Taking Metoclopramide HCl 10 mg 1 tab(s) Orally prn, migraine Oct, Unknown Vitamin D 1000 UNIT 1 tablet Orally Once a day Not-Taking NovoLog 100 UNIT/ML 12 ml Subcutaneous as needed Not-Taking Lisinopril 10 mg 1 tablet Orally Once a day for 30 day(s) Oct, Active DOK 100 MG 1 capsule as needed Orally Once a day Active PROCEDURES Procedure Date Ordered Result Body Site LIDOCAINE 4% CREAM TOPICAL 2020-09-18 N/A RESULTS No Results REASON FOR VISIT Left lateral foot wound MEDICAL (GENERAL) HISTORY Type Description Date Medical [...] Notes Treatment Notes Treatm ent Clinical Notes Sep, Type 2 diabetes mellitus with foot ulcer (ICD-10 - E11.621) Sep, 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
--- OUTSIDE RECORDS SUMMARY | 2020-12-23 12:59 | CCD ---
Author Author [facility] Organization [facility] Address Unknown Phone Unavailable Care Team Providers Care Commercial Agent Name Role Phone Pauly Burger Unavailable PROBLEMS Type Condition ICD9-CM Code [id number] Code Onset Dates Condition S tatus SNOMED Code Notes Problem Venous embolism and thrombos is of unspecified deep vessels of lower extremity 453.40 Active 587352011 Problem Diabetes with neurological m anifestations, type II or unspecified type, not stated as uncontrolled 250.60 Active 499583392 Problem Need for prophylactic vaccination and inoculation, Influen za V04.81 Active 226479622 Problem Other specified myoneural disorders 358.8 Acti ve 853845645 Problem Encounter for long-term (current) use of anticoagulants V5 8.61 Active 290740574 Problem Migraine with aura, without mention of intractable migraine without mention of status migrainosus 346.00 Active 805372 6 Problem Non-pressure chronic ulcer o f right 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 L97.411 Active 606215766 Problem Unspecified essential hypertension 401.9 Activ e 32593817 Problem Non-pressure chronic ulcer o f left heel and midfoot with fat layer exposed L97.422 Active 507652244 Problem Diabetes mellitus without me ntion of complication, type II or unspecified type, not stated as uncontrolled 250.00 Ac tive 830763356 Problem Symptomatic menopausal or female climacteric states 627.2 Active 52800274 Problem Type 2 diabetes mellitus with foot ulcer E11.621 Active 276294173 Problem 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 Active 520508295 Problem Non-pressure chronic ulcer o f other part of right foot with fat layer exposed L97.512 Active 135627205 ALLERGIES Allergen (clinical drug ingredient) Drug/Non Drug Allergy do cumented on EMR Reaction Allergy Type Onset Date Status Hydrochlorothiazide-12.5 mg dizziness Drug Allergy Active ENCOUNTERS from 1960 to 2020-11-10 Encounter Location Date Provider Diagnosis [facility] [address] [place] [address] Oct Pauly Burger Type 2 diabetes mellitus with foot ulcer E11.621 ; Non-pressure chronic ulcer of other part of left foot with necrosis of bone L97.524 ; Non-pressure chronic ulcer of left heel and midfoot with fat layer exposed L97.422 and Non- pressure chronic ulcer of right heel and midfoot [...] No Information VITAL SIGNS Weight 290 lbs Oct, Height 5'5 3/4"(P) in Oct, BMI 47.16 kg/m2 Oct, Heart Rate 97 /min Oct, Respiratory Rate 18 /min Oct, Temperature 97.5 degrees Fahrenheit Oct, Oximetry 97 Oct, Blood pressure systolic 138 mm Hg Oct, Blood pressure diastolic 57 mm Hg Oct, MEDICATIONS Medication SIG (Take, Route, Frequency, Duration) [...] tablet Orally Once a day Not-Taking PROCEDURES from 1960 to 2020-11-10 Procedure Date Ordered Result Body Site LIDOCAINE 4% CREAM TOPICAL 2020-10-30 N/A RESULTS No Results REASON FOR VISIT BLE wounds MEDICAL (GENERAL) [...] Notes Treatment Notes Treatm ent Clinical Notes Oct, Type 2 diabetes mellitus with foot ulcer (ICD-10 - E11.621) Dressing changes 3X a week. 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 The dressing should follow those documented in the procedure note Next Appt Details 1 Week Reason: Provider Name:Pauly Burger, 11-20 11:00:00 AM, [address] [place], [address], Insurance Providers Payer Name Payer Address Payer Phone Insured Name Patient Relati onship to Insured Coverage Start Date Coverage End Date MEDICARE COMPLETE [employer] [address] [address] [facility] [phone] MARCELL MATOS self
--- OUTSIDE RECORDS SUMMARY | 2020-12-23 12:59 | CCD ---
Author Author [facility] Organization [facility] Address Unknown Phone Unavailable Care Team Providers Care Underwriting Account Representative Name Role Phone Ho Nicholas Unavailable PROBLEMS Type Condition ICD9-CM Code [id number] Code Onset Dates Condition S tatus SNOMED Code Notes Problem Venous embolism and thrombos is of unspecified deep vessels of lower extremity 453.40 Active 331528602 Problem Diabetes with neurological m anifestations, type II or unspecified type, not stated as uncontrolled 250.60 Active 494122780 Problem Need for prophylactic vaccination and inoculation, Influen za V04.81 Active 011537043 Problem Other specified myoneural disorders 358.8 Acti ve 821071323 Problem Encounter for long-term (current) use of anticoagulants V5 8.61 Active 818187914 Problem Migraine with aura, without mention of intractable migraine without mention of status migrainosus 346.00 Active 228322 6 Problem Non-pressure chronic ulcer o f right 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 L97.411 Active 413703591 Problem Unspecified essential hypertension 401.9 Activ e 97546079 Problem Non-pressure chronic ulcer o f left heel and midfoot with fat layer exposed L97.422 Active 634486058 Problem Diabetes mellitus without me ntion of complication, type II or unspecified type, not stated as uncontrolled 250.00 Ac tive 824783996 Problem Symptomatic menopausal or female climacteric states 627.2 Active 62239695 Problem Type 2 diabetes mellitus with foot ulcer E11.621 Active 586973305 Problem 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 Active 961424233 Problem Non-pressure chronic ulcer o f other part of right foot with fat layer exposed L97.512 Active 921725953 ALLERGIES Allergen (clinical drug ingredient) Drug/Non Drug Allergy do cumented on EMR Reaction Allergy Type Onset Date Status Hydrochlorothiazide-12.5 mg dizziness Drug Allergy Active ENCOUNTERS from 1960 to 2020-10-02 Encounter Location Date Provider Diagnosis [facility] [address] [place] [address] Sep Ho Nicholas IMMUNIZATIONS Vaccine Route Administration Date Status Influenza [...] needed Orally Once a day Active PROCEDURES No Information RESULTS No Results [...] TREATMENT Next Appt Details Provider Name:Pauly Burger, 10-16 09:30:00 AM, [address] [place], [address], Insurance Providers Payer Name Payer Address Payer Phone Insured Name Patient Relati onship to Insured Coverage Start Date Coverage End Date MEDICARE COMPLETE [employer] [address] [address] [facility] [id number] MARCELL MATOS self
--- OUTSIDE RECORDS SUMMARY | 2020-12-23 12:59 | CCD ---
Author Author [facility] Organization [facility] Address Unknown Phone Unavailable Care Team Providers Care Booth Supervisor Name Role Phone Pauly Burger Unavailable PROBLEMS Type Condition ICD9-CM Code [id number] Code Onset Dates Condition S tatus SNOMED Code Notes Problem Venous embolism and thrombos is of unspecified deep vessels of lower extremity 453.40 Active 757527284 Problem Diabetes with neurological m anifestations, type II or unspecified type, not stated as uncontrolled 250.60 Active 209181608 Problem Need for prophylactic vaccination and inoculation, Influen za V04.81 Active 032125693 Problem Other specified myoneural disorders 358.8 Acti ve 344951436 Problem Encounter for long-term (current) use of anticoagulants V5 8.61 Active 814896748 Problem Migraine with aura, without mention of intractable migraine without mention of status migrainosus 346.00 Active 121938 6 Problem Non-pressure chronic ulcer o f right 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 L97.411 Active 553837472 Problem Unspecified essential hypertension 401.9 Activ e 02581059 Problem Non-pressure chronic ulcer o f left heel and midfoot with fat layer exposed L97.422 Active 669352157 Problem Diabetes mellitus without me ntion of complication, type II or unspecified type, not stated as uncontrolled 250.00 Ac tive 303336257 Problem Symptomatic menopausal or female climacteric states 627.2 Active 74343442 Problem Type 2 diabetes mellitus with foot ulcer E11.621 Active 168350413 Problem 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 Active 018879142 Problem Non-pressure chronic ulcer o f other part of right foot with fat layer exposed L97.512 Active 209048529 ALLERGIES Allergen (clinical drug ingredient) Drug/Non Drug Allergy do cumented on EMR Reaction Allergy Type Onset Date Status Hydrochlorothiazide-12.5 mg dizziness Drug Allergy Active ENCOUNTERS from 1959 to 2020-10-28 Encounter Location Date Provider Diagnosis [facility] [address] [place] [address] Oct Pauly Burger Type 2 diabetes mellitus with foot ulcer E11.621 ; Non-pressure chronic ulcer of other part of left foot with necrosis of bone L97.524 ; Non-pressure chronic ulcer of left heel and midfoot with fat layer exposed L97.422 ; Non- pressure chronic ulcer of right 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 L97.411 and Immunization not carried out because of patient refusal Z28.21 IMMUNIZATIONS Vaccine Route Administration Date Status Influenza [...] Information VITAL SIGNS Weight 290 lbs Oct, Weight-kg per pt kg Oct, Height 5'5 3/4"(P) in Oct, BMI 47.16 kg/m2 Oct, Heart Rate 82 /min Oct, Respiratory Rate 18 /min Oct, Temperature 96.8 degrees Fahrenheit Oct, Oximetry 99 Oct, Blood pressure systolic 142 mm Hg Oct, Blood pressure diastolic 60 mm Hg Oct, MEDICATIONS Medication SIG (Take, Route, Frequency, Duration) Notes Start Da te End Date Status Dulcolax Balance Active Clopidogrel Bisulfate 75 MG 1 tablet Orally Once a day for 30 day(s) Active Ferrous Sulfate 325 (65 Fe) MG TAKE ONE TABLET BY MOUTH TWIC E A DAY Oral for 30 Active Glucostix glucose strip 1 strip daily for 30 day(s) Apr Active SM Aspirin Adult Low Strength 81 MG TAKE ONE TABLET BY MOUTH EVERY DAY Oral for 30 Active Risperidone 0.25 MG 1 tab Orally Once a day Active Clopidogrel Bisulfate 75 MG TAKE ONE TABLET BY MOUTH EVERY DAY Oral for 90 Active Metformin HCl 500 mg 2 tabs Orally Twice a day for 30 day(s) March, Unknown Januvia 100 mg 1 tablet Orally Once a day for 30 day(s) Dec, Unknown Vitamin D 1000 UNIT 1 tablet Orally Once a day Not-Taking Lisinopril 10 mg 1 tablet Orally Once a day for 30 day(s) Oct, Active Imitrex 50 mg 1 tablet Orally at start of migraine headache pain Oct, Unknown Iron 325 (65 Fe) MG 1 tablet Orally Once a day for 30 day(s) Not-Taking Metoclopramide HCl 10 mg 1 tab(s) Orally prn, migraine Oct, Unknown Doxycycline Hyclate 100 MG 1 tablet Orally twice a day for 30 Days Active DOK 100 MG 1 capsule as needed Orally Once a day Active Lantus 100 UNIT/ML 50 ml Subcutaneous once daily Active NovoLog 100 UNIT/ML 12 ml Subcutaneous as needed Not-Taking PROCEDURES from 1959 to 2020-10-28 Procedure Date Ordered Result Body Site LIDOCAINE 4% CREAM TOPICAL 2020-10-23 N/A RESULTS No Results REASON FOR VISIT Left lateral foot MEDICAL (GENERAL) HISTORY Type Description Date Medical [...] with fat layer exposed (ICD-10 - L97.422) Oct, Non-pressure chronic ulcer o f right 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 (ICD-10 - L97.411) Oct, Immunization not carried out because of patient refusal (ICD-10 - Z28.21) PLAN OF TREATMENT Treatment Notes Assessment Notes Clinical Notes Type 2 diabetes mellitus with foot ulcer Dressing javier ges 3X a week. The dressing should follow those documented in the procedure note Next Appt Details 1 Week Reason: Provider Name:Pauly Burger, 10-30 02:30:00 PM, [address] [place], [address], Provider Name:Pauly Burger, 11-20 11:00:00 AM, [address] [place], [address], Insurance Providers Payer Name Payer Address Payer Phone Insured Name Patient Relati onship to Insured Coverage Start Date Coverage End Date MEDICARE COMPLETE [facility] [address] [address] [facility] [id number] MARCELL MATOS self
--- OUTSIDE RECORDS SUMMARY | 2020-12-23 12:59 | CCD ---
Author Author [facility] Organization [facility] Address Unknown Phone Unavailable Care Team Providers Care Wash Rack Operator Name Role Phone Ho Nicholas Unavailable PROBLEMS Type Condition ICD9-CM Code [id number] Code Onset Dates Condition S tatus SNOMED Code Notes Problem Venous embolism and thrombos is of unspecified deep vessels of lower extremity 453.40 Active 809868624 Problem Diabetes with neurological m anifestations, type II or unspecified type, not stated as uncontrolled 250.60 Active 753169185 Problem Need for prophylactic vaccination and inoculation, Influen za V04.81 Active 010667992 Problem Other specified myoneural disorders 358.8 Acti ve 890017217 Problem Encounter for long-term (current) use of anticoagulants V5 8.61 Active 954037972 Problem Migraine with aura, without mention of intractable migraine without mention of status migrainosus 346.00 Active 108962 6 Problem Non-pressure chronic ulcer o f right 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 L97.411 Active 351870992 Problem Unspecified essential hypertension 401.9 Activ e 34028073 Problem Non-pressure chronic ulcer o f left heel and midfoot with fat layer exposed L97.422 Active 838514209 Problem Diabetes mellitus without me ntion of complication, type II or unspecified type, not stated as uncontrolled 250.00 Ac tive 693684343 Problem Symptomatic menopausal or female climacteric states 627.2 Active 08376346 Problem Type 2 diabetes mellitus with foot ulcer E11.621 Active 750381071 Problem 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 Active 988298909 Problem Non-pressure chronic ulcer o f other part of right foot with fat layer exposed L97.512 Active 097793306 ALLERGIES Allergen (clinical drug ingredient) Drug/Non Drug Allergy do cumented on EMR Reaction Allergy Type Onset Date Status Hydrochlorothiazide-12.5 mg dizziness Drug Allergy Active ENCOUNTERS from 1959 to 2020-10-06 Encounter Location Date Provider Diagnosis [facility] Care [address] [place] [address] Sep Ho Nicholas Type 2 diabetes mellitus with foot ulcer E11.621 ; Non-pressure chronic ulcer of other part of left foot with necrosis of bone L97.524 and Non- pressure chronic ulcer of left heel and midfoot with fat layer exposed L97.422 IMMUNIZATIONS Vaccine Route Administration Date Status Influenza [...] Sep, BMI 47.16 kg/m2 Sep, Heart Rate 84 /min Sep, Respiratory Rate 18 /min Sep, Temperature 96.9 degrees Fahrenheit Sep, Oximetry 98 Sep, Blood pressure systolic 189 mm Hg Sep, Blood pressure diastolic 92 mm Hg Sep, MEDICATIONS Medication SIG (Take, [...] Result Body Site LIDOCAINE 4% CREAM TOPICAL 2020-09-25 N/A RESULTS No Results REASON FOR VISIT Left Laterial Foot Wound MEDICAL (GENERAL) HISTORY Type Description Date Medical [...] L97.524) Sep, Non-pressure chronic ulcer o f left heel and midfoot with fat layer exposed (ICD-10 - L97.422) PLAN OF TREATMENT Next Appt Details 3 Weeks Reason: Provider Name:Pauly Thor Tao, 10-16 09:30:00 AM, [address] [place], [address], Insurance Providers Payer Name Payer Address Payer Phone Insured Name Patient Relati onship to Insured Coverage Start Date Coverage End Date MEDICARE COMPLETE [employer] [address] [address] [facility] [phone] MARCELL MATOS self
--- OUTSIDE RECORDS SUMMARY | 2020-12-23 12:59 | CCD ---
Author Author [facility] Organization [facility] Address Unknown Phone Unavailable Care Team Providers Care Accounting Representative Name Role Phone Pauly Burger Unavailable PROBLEMS Type Condition ICD9-CM Code [id number] Code Onset Dates Condition S tatus SNOMED Code Notes Problem Venous embolism and thrombos is of unspecified deep vessels of lower extremity 453.40 Active 498614597 Problem Diabetes with neurological m anifestations, type II or unspecified type, not stated as uncontrolled 250.60 Active 099732789 Problem Need for prophylactic vaccination and inoculation, Influen za V04.81 Active 208549010 Problem Other specified myoneural disorders 358.8 Acti ve 387872521 Problem Encounter for long-term (current) use of anticoagulants V5 8.61 Active 047843417 Problem Migraine with aura, without mention of intractable migraine without mention of status migrainosus 346.00 Active 574674 6 Problem Non-pressure chronic ulcer o f right 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 L97.411 Active 770176078 Problem Unspecified essential hypertension 401.9 Activ e 42169160 Problem Non-pressure chronic ulcer o f left heel and midfoot with fat layer exposed L97.422 Active 949402030 Problem Diabetes mellitus without me ntion of complication, type II or unspecified type, not stated as uncontrolled 250.00 Ac tive 410352661 Problem Symptomatic menopausal or female climacteric states 627.2 Active 12164333 Problem Type 2 diabetes mellitus with foot ulcer E11.621 Active 493996714 Problem 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 Active 776989601 Problem Non-pressure chronic ulcer o f other part of right foot with fat layer exposed L97.512 Active 478799441 ALLERGIES Allergen (clinical drug ingredient) Drug/Non Drug Allergy do cumented on EMR Reaction Allergy Type Onset Date Status Hydrochlorothiazide-12.5 mg dizziness Drug Allergy Active ENCOUNTERS from 1959 to 2020-10-21 Encounter Location Date Provider Diagnosis [facility] [address] [place] [address] Oct Pauly Burger Type 2 diabetes mellitus [...] Oct, BMI 47.16 kg/m2 Oct, Heart Rate 110 /min Oct, Respiratory Rate 20 /min Oct, Temperature 95 degrees Fahrenheit Oct, Oximetry 96 Oct, Blood pressure systolic 147 mm Hg Oct, Blood pressure diastolic 82 mm Hg Oct, MEDICATIONS Medication SIG (Take, Route, Frequency, Duration) Notes Start Da te End Date Status Iron 325 (65 Fe) MG 1 tablet Orally Once a day for 30 day(s) Not-Taking SM Aspirin Adult Low Strength 81 MG TAKE ONE TABLET BY MOUTH EVERY DAY Oral for 30 Active Metformin HCl 500 mg 2 tabs Orally Twice a day for 30 day(s) March, Unknown Metoclopramide HCl 10 mg 1 tab(s) Orally prn, migraine Oct, Unknown NovoLog 100 UNIT/ML 12 ml Subcutaneous as needed Not-Taking Lisinopril 10 mg 1 tablet Orally Once a day for 30 day(s) Oct, Active Vitamin D 1000 UNIT 1 tablet Orally Once a day Not-Taking Januvia 100 mg 1 tablet Orally Once a day for 30 day(s) Dec, Unknown Risperidone 0.25 MG 1 tab Orally Once a day Active Glucostix glucose strip 1 strip daily for 30 day(s) Apr Active DOK 100 MG 1 capsule as needed Orally Once a day Active Lantus 100 UNIT/ML 50 ml Subcutaneous once daily Active Clopidogrel Bisulfate 75 MG TAKE ONE TABLET BY MOUTH EVERY DAY Oral for 90 Active Doxycycline Hyclate 100 MG 1 tablet Orally twice a day for 30 Days Active Imitrex 50 mg 1 tablet Orally at start of migraine headache pain Oct, Unknown Ferrous Sulfate 325 (65 Fe) MG TAKE ONE TABLET BY MOUTH TWIC E A DAY Oral for 30 Active PROCEDURES from 1959 to 2020-10-21 Procedure Date Ordered Result Body Site LIDOCAINE 4% CREAM TOPICAL 2020-10-16 N/A RESULTS No Results REASON FOR VISIT [...] follow those documented in the procedure note Treatment Notes Test Name Order Date Lower Extremity Arterial US 2020-10-21 Next Appt Details 1 Week Reason: Provider Name:Pauly Burger, 10-23 11:00:00 AM, [address] [place], [address], Provider Name:Pauly Burger, 10-30 02:30:00 PM, [address] [place], [address], Insurance Providers Payer Name Payer Address Payer Phone Insured Name Patient Relati onship to Insured Coverage Start Date Coverage End Date MEDICARE COMPLETE [employer] [address] [address] [facility] [phone] MARCELL MATOS self
--- OUTSIDE RECORDS SUMMARY | 2020-12-23 12:59 | CCD ---
Author Author [facility] Organization [facility] Address Unknown Phone Unavailable Care Team Providers Care Manager Access Name Role Phone Pauly Burger Unavailable PROBLEMS Type Condition ICD9-CM Code [id number] Code Onset Dates Condition S tatus SNOMED Code Notes Problem Venous embolism and thrombos is of unspecified deep vessels of lower extremity 453.40 Active 372884402 Problem Diabetes with neurological m anifestations, type II or unspecified type, not stated as uncontrolled 250.60 Active 277669900 Problem Need for prophylactic vaccination and inoculation, Influen za V04.81 Active 764251861 Problem Other specified myoneural disorders 358.8 Acti ve 416546524 Problem Encounter for long-term (current) use of anticoagulants V5 8.61 Active 591451863 Problem Migraine with aura, without mention of intractable migraine without mention of status migrainosus 346.00 Active 686643 6 Problem Non-pressure chronic ulcer o f right 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 L97.411 Active 625446877 Problem Unspecified essential hypertension 401.9 Activ e 27103745 Problem Non-pressure chronic ulcer o f left heel and midfoot with fat layer exposed L97.422 Active 234307633 Problem Diabetes mellitus without me ntion of complication, type II or unspecified type, not stated as uncontrolled 250.00 Ac tive 896398119 Problem Symptomatic menopausal or female climacteric states 627.2 Active 09556611 Problem Type 2 diabetes mellitus with foot ulcer E11.621 Active 406335517 Problem 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 Active 595572777 Problem Non-pressure chronic ulcer o f other part of right foot with fat layer exposed L97.512 Active 191778992 ALLERGIES Allergen (clinical drug ingredient) Drug/Non Drug Allergy do cumented on EMR Reaction Allergy Type Onset Date Status Hydrochlorothiazide-12.5 mg dizziness Drug Allergy Active ENCOUNTERS from 1959 to 2020-10-17 Encounter Location Date Provider Diagnosis [facility] [address] [place] [address] Oct Pauly Burger IMMUNIZATIONS Vaccine Route Administration Date [...] A DAY Oral for 30 Active PROCEDURES No Information RESULTS No Results REASON FOR VISIT RLE arterial US MEDICAL (GENERAL) HISTORY Type Description Date Medical [...] TREATMENT Next Appt Details Provider Name:Pauly Burger, 10-23 11:00:00 AM, [address] [place], [address], Insurance Providers Payer Name Payer Address Payer Phone Insured Name Patient Relati onship to Insured Coverage Start Date Coverage End Date MEDICARE COMPLETE [employer] [address] [address] [facility] [phone] MARCELL MATOS self
--- OUTSIDE RECORDS SUMMARY | 2020-12-23 12:59 | CCD ---
Author Author [facility] Organization [facility] Address Unknown Phone Unavailable Care Team Providers Care Elevator Repairer Apprentice Name Role Phone Pauly Burger Unavailable PROBLEMS Type Condition ICD9-CM Code [id number] Code Onset Dates Condition S tatus SNOMED Code Notes Problem Venous embolism and thrombos is of unspecified deep vessels of lower extremity 453.40 Active 596357453 Problem Diabetes with neurological m anifestations, type II or unspecified type, not stated as uncontrolled 250.60 Active 849492524 Problem Need for prophylactic vaccination and inoculation, Influen za V04.81 Active 329396500 Problem Other specified myoneural disorders 358.8 Acti ve 577427897 Problem Encounter for long-term (current) use of anticoagulants V5 8.61 Active 487397671 Problem Migraine with aura, without mention of intractable migraine without mention of status migrainosus 346.00 Active 597891 6 Problem Non-pressure chronic ulcer o f right 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 L97.411 Active 982429285 Problem Unspecified essential hypertension 401.9 Activ e 50641365 Problem Non-pressure chronic ulcer o f left heel and midfoot with fat layer exposed L97.422 Active 410756354 Problem Diabetes mellitus without me ntion of complication, type II or unspecified type, not stated as uncontrolled 250.00 Ac tive 025758338 Problem Symptomatic menopausal or female climacteric states 627.2 Active 66818510 Problem Type 2 diabetes mellitus with foot ulcer E11.621 Active 336946394 Problem 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 Active 827630404 Problem Non-pressure chronic ulcer o f other part of right foot with fat layer exposed L97.512 Active 390953395 ALLERGIES Allergen (clinical drug ingredient) Drug/Non Drug Allergy do cumented on EMR Reaction Allergy Type Onset Date Status Hydrochlorothiazide-12.5 mg dizziness Drug Allergy Active ENCOUNTERS from 1959 to 2020-12-10 Encounter Location Date Provider Diagnosis [facility] W[facility] Care [address] [place] [address] Nov Pauly Burger Type 2 diabetes mellitus with [...] No Information VITAL SIGNS Weight 290 lbs Nov, Weight-kg PER PT kg Nov, Height 5'5 3/4"(P) in Nov, BMI 47.16 kg/m2 Nov, Heart Rate 74 /min Nov, Respiratory Rate 18 /min Nov, Temperature 95.4 degrees Fahrenheit Nov, Oximetry 97 Nov, Blood pressure systolic 151 mm Hg Nov, Blood pressure diastolic 84 mm Hg Nov, MEDICATIONS Medication SIG (Take, Route, Frequency, Duration) Notes Start Da te End Date Status Glucostix glucose strip 1 strip daily for 30 day(s) Apr Active SM Aspirin Adult Low Strength 81 MG TAKE ONE TABLET BY MOUTH EVERY DAY Oral for 30 Active Iron 325 (65 Fe) MG 1 tablet Orally Once a day for 30 day(s) Not-Taking Metoclopramide HCl 10 mg 1 tab(s) Orally prn, migraine Oct, Unknown Doxycycline Hyclate 100 MG 1 tablet Orally twice a day for 30 Days Not-Taking Metformin HCl 500 mg 2 tabs Orally Twice a day for 30 day(s) March, Unknown NovoLog 100 UNIT/ML 12 ml Subcutaneous as needed Not-Taking Clopidogrel Bisulfate 75 MG TAKE ONE TABLET BY MOUTH EVERY DAY Oral for 90 Active Vitamin D 1000 UNIT 1 tablet Orally Once a day Not-Taking Imitrex 50 mg 1 tablet Orally at start of migraine headache pain Oct, Unknown Risperidone 0.25 MG 1 tab Orally Once a day Active DOK 100 MG 1 capsule as needed Orally Once a day Active Clopidogrel Bisulfate 75 MG 1 tablet Orally Once a day for 30 day(s) Active Lantus 100 UNIT/ML 50 ml Subcutaneous once daily Active Dulcolax Balance Active Lisinopril 10 mg 1 tablet Orally Once a day for 30 day(s) Oct, Active Januvia 100 mg 1 tablet Orally Once a day for 30 day(s) Dec, Unknown Ferrous Sulfate 325 (65 Fe) MG TAKE ONE TABLET BY MOUTH TWIC E A DAY Oral for 30 Active PROCEDURES from 1959 to 2020-12-10 Procedure Date Ordered Result Body Site Medication: 4% Lidocaine topical cream (Anecream) 5gm 2020-12-04 N/A RESULTS No Results REASON FOR VISIT [...] Notes Treatment Notes Treatm ent Clinical Notes Nov, Type 2 diabetes mellitus with foot ulcer (ICD-10 - E11.621) Dressing changes 3X a week. The dressing should follow those documented in the procedure note Nov, Non-pressure chronic ulcer o f right heel and midfoot with necrosis of muscle (ICD-10 - L97.413) Nov, Other VASHE [id number] EXP:02/22 PLAN OF TREATMENT Treatment Notes Assessment Notes Clinical Notes Type 2 diabetes mellitus with foot ulcer Dressing javier ges 3X a week. The dressing should follow those documented in the procedure note Next Appt Details 1 Week Reason: Provider Name:Pauly Mcrae Morehouse, 12-15 02:30:00 PM, [address] [place], [address], Insurance Providers Payer Name Payer Address Payer Phone Insured Name Patient Relati onship to Insured Coverage Start Date Coverage End Date MEDICARE COMPLETE [employer] [address] [address] [facility] [id number] MARCELL MATOS self
--- OUTSIDE RECORDS SUMMARY | 2020-12-23 12:59 | CCD ---
Author Author [facility] Organization [facility] Address Unknown Phone Unavailable Care Team Providers Care Cut Off Sawyer Log Name Role Phone Pauly Burger Unavailable PROBLEMS Type Condition ICD9-CM Code [id number] Code Onset Dates Condition S tatus SNOMED Code Notes Problem Venous embolism and thrombos is of unspecified deep vessels of lower extremity 453.40 Active 862009022 Problem Diabetes with neurological m anifestations, type II or unspecified type, not stated as uncontrolled 250.60 Active 123929577 Problem Need for prophylactic vaccination and inoculation, Influen za V04.81 Active 900035775 Problem Other specified myoneural disorders 358.8 Acti ve 366553454 Problem Encounter for long-term (current) use of anticoagulants V5 8.61 Active 505245907 Problem Migraine with aura, without mention of intractable migraine without mention of status migrainosus 346.00 Active 989053 6 Problem Non-pressure chronic ulcer o f right 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 L97.411 Active 562656289 Problem Unspecified essential hypertension 401.9 Activ e 21548293 Problem Non-pressure chronic ulcer o f left heel and midfoot with fat layer exposed L97.422 Active 459810515 Problem Diabetes mellitus without me ntion of complication, type II or unspecified type, not stated as uncontrolled 250.00 Ac tive 638248560 Problem Symptomatic menopausal or female climacteric states 627.2 Active 25691330 Problem Type 2 diabetes mellitus with foot ulcer E11.621 Active 370197168 Problem 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 Active 668037648 Problem Non-pressure chronic ulcer o f other part of right foot with fat layer exposed L97.512 Active 772164900 ALLERGIES Allergen (clinical drug ingredient) Drug/Non Drug Allergy do cumented on EMR Reaction Allergy Type Onset Date Status Hydrochlorothiazide-12.5 mg dizziness Drug Allergy Active ENCOUNTERS from 1959 to 2020-11-25 Encounter Location Date Provider Diagnosis [facility] [address] [place] [address] Nov Pauly Burger Type 2 diabetes mellitus [...] Information VITAL SIGNS Weight 290 lbs Nov, Height 5'5 3/4"(P) in Nov, BMI 47.16 kg/m2 Nov, Heart Rate 81 /min Nov, Respiratory Rate 17 /min Nov, Temperature 96.3 degrees Fahrenheit Nov, Oximetry 100% Nov, Blood pressure systolic 134 mm Hg Nov, Blood pressure diastolic 82 MANUALLY mm Hg Nov, MEDICATIONS Medication SIG (Take, Route, Frequency, Duration) Notes Start Da te End Date Status NovoLog 100 UNIT/ML 12 ml Subcutaneous as needed Not-Taking Metoclopramide HCl 10 mg 1 tab(s) Orally prn, migraine Oct, Unknown Vitamin D 1000 UNIT 1 tablet Orally Once a day Not-Taking Glucostix glucose strip 1 strip daily for 30 day(s) Apr Active Lisinopril 10 mg 1 tablet Orally Once a day for 30 day(s) Oct, Active Clopidogrel Bisulfate 75 MG TAKE ONE TABLET BY MOUTH EVERY DAY Oral for 90 Active DOK 100 MG 1 capsule as needed Orally Once a day Active Januvia 100 mg 1 tablet Orally Once a day for 30 day(s) Dec, Unknown Ferrous Sulfate 325 (65 Fe) MG TAKE ONE TABLET BY MOUTH TWIC E A DAY Oral for 30 Active Dulcolax Balance Active Clopidogrel Bisulfate 75 MG 1 tablet Orally Once a day for 30 day(s) Active Metformin HCl 500 mg 2 tabs Orally Twice a day for 30 day(s) March, Unknown Imitrex 50 mg 1 tablet Orally at start of migraine headache pain Oct, Unknown Iron 325 (65 Fe) MG 1 tablet Orally Once a day for 30 day(s) Not-Taking Risperidone 0.25 MG 1 tab Orally Once a day Active SM Aspirin Adult Low Strength 81 MG TAKE ONE TABLET BY MOUTH EVERY DAY Oral for 30 Active Doxycycline Hyclate 100 MG 1 tablet Orally twice a day for 30 Days Active Lantus 100 UNIT/ML 50 ml Subcutaneous once daily Active PROCEDURES from 1959 to 2020-11-25 Procedure Date Ordered Result Body Site LIDOCAINE 4% CREAM TOPICAL 2020-11-20 N/A RESULTS No Results REASON FOR VISIT [...] note Nov, 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 The dressing should follow those documented in the procedure note Next Appt Details 1 Week Reason: Provider Name:Pauly Burger, 11-27 01:00:00 PM, [place], [address], Provider Name:Pauly Burger, 12-04 04:00:00 PM, [address] [place], [address], Insurance Providers Payer Name Payer Address Payer Phone Insured Name Patient Relati onship to Insured Coverage Start Date Coverage End Date MEDICARE COMPLETE [facility] [address] [address] [facility] [id number] MARCELL MATOS self
--- OUTSIDE RECORDS SUMMARY | 2020-12-23 12:59 | CCD ---
Author Author [facility] Organization [facility] Address Unknown Phone Unavailable Care Team Providers Care Restaurant Service Manager Name Role Phone Ho Nicholas Unavailable PROBLEMS Type Condition ICD9-CM Code [id number] Code Onset Dates Condition S tatus SNOMED Code Notes Problem Venous embolism and thrombos is of unspecified deep vessels of lower extremity 453.40 Active 319193675 Problem Diabetes with neurological m anifestations, type II or unspecified type, not stated as uncontrolled 250.60 Active 180068666 Problem Need for prophylactic vaccination and inoculation, Influen za V04.81 Active 497862995 Problem Other specified myoneural disorders 358.8 Acti ve 662354735 Problem Encounter for long-term (current) use of anticoagulants V5 8.61 Active 006498709 Problem Migraine with aura, without mention of intractable migraine without mention of status migrainosus 346.00 Active 271473 6 Problem Non-pressure chronic ulcer o f right 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 L97.411 Active 444274964 Problem Unspecified essential hypertension 401.9 Activ e 94673175 Problem Non-pressure chronic ulcer o f left heel and midfoot with fat layer exposed L97.422 Active 381091669 Problem Diabetes mellitus without me ntion of complication, type II or unspecified type, not stated as uncontrolled 250.00 Ac tive 789822792 Problem Symptomatic menopausal or female climacteric states 627.2 Active 44922589 Problem Type 2 diabetes mellitus with foot ulcer E11.621 Active 651272240 Problem 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 Active 896452611 Problem Non-pressure chronic ulcer o f other part of right foot with fat layer exposed L97.512 Active 231139241 ALLERGIES Allergen (clinical drug ingredient) Drug/Non Drug Allergy do cumented on EMR Reaction Allergy Type Onset Date Status Hydrochlorothiazide-12.5 mg dizziness Drug Allergy Active ENCOUNTERS from 1960 to 2020-10-02 Encounter Location Date Provider Diagnosis [facility] [address] [place] [address] Sep Ho Nicholas IMMUNIZATIONS Vaccine Route Administration [...] Provider Name:Pauly Burger, 10-16 09:30:00 AM, [address] [place], [address], Insurance Providers Payer Name Payer Address Payer Phone Insured Name Patient Relati onship to Insured Coverage Start Date Coverage End Date MEDICARE COMPLETE [employer] [address] [address] [facility] [phone] MARCELL MATOS self
--- OUTSIDE RECORDS SUMMARY | 2020-12-23 12:59 | CCD ---
Author Author [facility] Organization [facility] Address Unknown Phone Unavailable Care Team Providers Care Prison Psychiatrist Name Role Phone Pauly Burger Unavailable PROBLEMS Type Condition ICD9-CM Code [id number] Code Onset Dates Condition S tatus SNOMED Code Notes Problem Venous embolism and thrombos is of unspecified deep vessels of lower extremity 453.40 Active 984639845 Problem Diabetes with neurological m anifestations, type II or unspecified type, not stated as uncontrolled 250.60 Active 859515061 Problem Need for prophylactic vaccination and inoculation, Influen za V04.81 Active 532684533 Problem Other specified myoneural disorders 358.8 Acti ve 074277067 Problem Encounter for long-term (current) use of anticoagulants V5 8.61 Active 722240817 Problem Migraine with aura, without mention of intractable migraine without mention of status migrainosus 346.00 Active 202757 6 Problem Non-pressure chronic ulcer o f right 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 L97.411 Active 372222502 Problem Unspecified essential hypertension 401.9 Activ e 01057643 Problem Non-pressure chronic ulcer o f left heel and midfoot with fat layer exposed L97.422 Active 421864198 Problem Diabetes mellitus without me ntion of complication, type II or unspecified type, not stated as uncontrolled 250.00 Ac tive 861367871 Problem Symptomatic menopausal or female climacteric states 627.2 Active 27088482 Problem Type 2 diabetes mellitus with foot ulcer E11.621 Active 712259305 Problem 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 Active 005265404 Problem Non-pressure chronic ulcer o f other part of right foot with fat layer exposed L97.512 Active 815932472 ALLERGIES Allergen (clinical drug ingredient) Drug/Non Drug Allergy do cumented on EMR Reaction Allergy Type Onset Date Status Hydrochlorothiazide-12.5 mg dizziness Drug Allergy Active ENCOUNTERS from 1959 to 2020-12-05 Encounter Location Date Provider Diagnosis [facility] [address] [place] [address] Nov Pauly Burger Type 2 diabetes mellitus with foot ulcer E11.621 ; Non-pressure chronic ulcer of other part of left foot with necrosis of bone L97.524 ; 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 and Non- pressure chronic ulcer of left heel and midfoot with necrosis of muscle L97.423 IMMUNIZATIONS Vaccine Route Administration Date Status Influenza [...] VITAL SIGNS Weight 290 lbs Nov, Weight-kg per pt kg Nov, Height 5'5 3/4"(P) in Nov, BMI 47.16 kg/m2 Nov, Heart Rate 89 /min Nov, Respiratory Rate 18 /min Nov, Temperature 97.8 degrees Fahrenheit Nov, Oximetry 98 Nov, Blood pressure systolic 169 mm Hg Nov, Blood pressure diastolic 74 mm Hg Nov, MEDICATIONS Medication SIG (Take, [...] for 30 Active PROCEDURES from 1959 to 2020-12-05 Procedure Date Ordered Result Body Site Medication: 4% Lidocaine topical cream (Anecream) 2020-11-27 N/A RESULTS No Results REASON FOR VISIT [...] L97.524) Nov, 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 The dressing should follow those documented in the procedure note Next Appt Details 1 Week Reason: Provider Name:Pauly Burger, 12-15 02:30:00 PM, [address] [place], [address], Insurance Providers Payer Name Payer Address Payer Phone Insured Name Patient Relati onship to Insured Coverage Start Date Coverage End Date MEDICARE COMPLETE [employer] [address] [address] [facility] [id number] MARCELL MATOS self
--- OUTSIDE RECORDS SUMMARY | 2020-12-23 13:00 | CCD ---
Author Author [facility] Organization [facility] Address Unknown Phone Unavailable Care Team Providers Care Senior Manager Asset Protection Name Role Phone Lito, A Jazmyne GLUE JOINTER FEEDER Unavailable Unavailable Lito, A Jazmyne GLUE JOINTER FEEDER Unavailable Unavailable Lito, A Jazmyne GLUE JOINTER FEEDER Unavailable Unavailable Lito, A Jazmyne GLUE JOINTER FEEDER Unavailable Unavailable Lito, A Jazmyne GLUE JOINTER FEEDER Unavailable Unavailable Lito, A Jazmyne GLUE JOINTER FEEDER Unavailable Unavailable Lito, A Jazmyne GLUE JOINTER FEEDER Unavailable Unavailable Lito, A Jazmyne GLUE JOINTER FEEDER Unavailable Unavailable Lito, A Jazmyne GLUE JOINTER FEEDER Unavailable Unavailable Lito, A Jazmyne GLUE JOINTER FEEDER Unavailable Unavailable Lito, A Jazmyne GLUE JOINTER FEEDER Unavailable Unavailable Lito, A Jazmyne GLUE JOINTER FEEDER Unavailable Unavailable Lito, A Jazmyne GLUE JOINTER FEEDER Unavailable Unavailable Lito, A Jazmyne GLUE JOINTER FEEDER Unavailable Unavailable Lito, A Jazmyne GLUE JOINTER FEEDER Unavailable Unavailable Lito, A Jazmyne GLUE JOINTER FEEDER Unavailable Unavailable Lito, A Jazmyne GLUE JOINTER FEEDER Unavailable Unavailable Lito, A Jazmyne GLUE JOINTER FEEDER Unavailable Unavailable Lito, A Jazmyne GLUE JOINTER FEEDER Unavailable Unavailable Lito, A Jazmyne GLUE JOINTER FEEDER Unavailable Unavailable Lito, A Jazmyne GLUE JOINTER FEEDER Unavailable Unavailable Lito, A Jazmyne GLUE JOINTER FEEDER Unavailable Unavailable Lito, A Jazmyne GLUE JOINTER FEEDER Unavailable Unavailable Lito, A Jazmyne GLUE JOINTER FEEDER Unavailable Unavailable Ltio, A Jazmyne GLUE JOINTER FEEDER Unavailable Unavailable Lito, A Jazmyne GLUE JOINTER FEEDER Unavailable Unavailable Lito, A Jazmyne GLUE JOINTER FEEDER Unavailable Unavailable Lito, A Jazmyne GLUE JOINTER FEEDER Unavailable Unavailable Vasquez, C Sarai PA Unavailable Unavailable Vasquez, C Sarai PA Unavailable Unavailable Vasquez, C Sarai PA Unavailable Unavailable Vasquez, C Sarai PA Unavailable Unavailable Vasquez, C Sarai PA Unavailable Unavailable Vasquez, C Sarai PA Unavailable Unavailable Vasquez, C Saria PA Unavailable Unavailable Vasquez, C Sarai PA Unavailable Unavailable Vasquez, C Sarai PA Unavailable Unavailable Vasquez, C Sarai PA Unavailable Unavailable Vasquez, C Sarai PA Unavailable Unavailable Vasquez, C Sarai PA Unavailable Unavailable Vasquez, C Sarai PA Unavailable Unavailable Vasquez, C Sarai PA Unavailable Unavailable Vasquez, C Sarai PA Unavailable Unavailable Vasquez, C Sarai PA Unavailable Unavailable Vasquez, C Sarai PA Unavailable Unavailable Vasquez, C Sarai PA Unavailable Unavailable Vasquez, C Sarai PA Unavailable Unavailable Vasquez, C Sarai PA Unavailable Unavailable Vasquez, C Sarai PA Unavailable Unavailable Vasquez, C Sarai PA Unavailable Unavailable Vasquez, C Sarai PA Unavailable Unavailable Vasquez, C Sarai PA Unavailable Unavailable Vasquez, C Sarai PA Unavailable Unavailable Vasquez, C Sarai PA Unavailable Unavailable Vasquez, C Sarai PA Unavailable Unavailable Vasquez, C Sarai PA Unavailable Unavailable Vasquez, C Sarai PA Unavailable Unavailable Vasquez, C Sarai PA Unavailable Unavailable Vasquez, C Sarai PA Unavailable Unavailable Vasquez, C Sarai PA Unavailable Unavailable Vasquez, C Sarai PA Unavailable Unavailable Vasquez, C Sarai PA Unavailable Unavailable Vasquez, C Sarai PA Unavailable Unavailable Vasquez, C Sarai PA Unavailable Unavailable Vasquez, C Sarai PA Unavailable Unavailable Vasquez, C Sarai PA Unavailable Unavailable Vasquez, C Sarai PA Unavailable Unavailable Vasquez, C Sarai PA Unavailable Unavailable Vasquez, C Sarai PA Unavailable Unavailable Vasquez, C Sarai PA Unavailable Unavailable Vasquez, C Sarai PA Unavailable Unavailable Vasquez, C Sarai PA Unavailable Unavailable Vasquez, C Sarai PA Unavailable Unavailable Vasquez, C Sarai PA Unavailable Unavailable Vasquez, C Sarai PA Unavailable Unavailable Lito, Jazmyne GLUE JOINTER FEEDER GLUE JOINTER FEEDER Unavailable Unavailable Lito, A Jazmyne GLUE JOINTER FEEDER Unavailable Unavailable Lito, A Jazmyne GLUE JOINTER FEEDER Unavailable Unavailable Lito, A Jazmyne GLUE JOINTER FEEDER Unavailable Unavailable Ilto, A Jazmyne GLUE JOINTER FEEDER Unavailable Unavailable Lito, A Jazmyne GLUE JOINTER FEEDER Unavailable Unavailable Lito, A Jazmyne GLUE JOINTER FEEDER Unavailable Unavailable Lito, A Jazmyne GLUE JOINTER FEEDER Unavailable Unavailable Lito, A Jazmyne GLUE JOINTER FEEDER Unavailable Unavailable Lito, A Jazmyne GLUE JOINTER FEEDER Unavailable Unavailable Lito, A Jazmyne GLUE JOINTER FEEDER Unavailable Unavailable Lito, A Jazmyne GLUE JOINTER FEEDER Unavailable Unavailable Lito, A Jazmyne GLUE JOINTER FEEDER Unavailable Unavailable Lito, A Jazmyne GLUE JOINTER FEEDER Unavailable Unavailable Lito, A Jazmyne GLUE JOINTER FEEDER Unavailable Unavailable Lito, A Jazmyne GLUE JOINTER FEEDER Unavailable Unavailable Lito, A Jazmyne GLUE JOINTER FEEDER Unavailable Unavailable Lito, A Jazmyne GLUE JOINTER FEEDER Unavailable Unavailable Lito, A Jazmyne GLUE JOINTER FEEDER Unavailable Unavailable Lito, A Jazmyne GLUE JOINTER FEEDER Unavailable Unavailable Lito, A Jazmyne GLUE JOINTER FEEDER Unavailable Unavailable Lito, A Jazmyne GLUE JOINTER FEEDER Unavailable Unavailable Lito, A Jazmyne GLUE JOINTER FEEDER Unavailable Unavailable Lito, A Jazmyne GLUE JOINTER FEEDER Unavailable Unavailable Lito, A Jazmyne GLUE JOINTER FEEDER Unavailable Unavailable Lito, A Jazmyne GLUE JOINTER FEEDER Unavailable Unavailable Lito, A Jazmyne GLUE JOINTER FEEDER Unavailable Unavailable Lito, A Jazmyne GLUE JOINTER FEEDER Unavailable Unavailable Lito, A Jazmyne GLUE JOINTER FEEDER Unavailable Unavailable Re-disclosure Warning The records that you are about to access may contain information from federally-assisted alcohol or drug abuse programs. If such information is present, then the following federally mandated warning applies: This information has been disclosed to you from records protected by federal confidentiality rules (42 CFR part 2). The federal rules prohibit you from making any further disclosure of this information unless further disclosure is expressly permitted by the written consent of the person to whom it pertains or as otherwise permitted by 42 CFR part 2. A general authorization for the release of medical or other information is NOT sufficient for this purpose. The Federal rules restrict any use of the information to criminally investigate or prosecute any alcohol or drug abuse patient.The records that you are about to access may contain highly sensitive health information, the redisclosure of which is protected by Article 27-F of the [facility] Public Health law. If you continue you may have access to information: Regarding HIV / AIDS; Provided by facilities licensed or operated by the [facility] Office of Mental Health; or Provided by the [facility] Office for People With Developmental Disabilities. If such information is present, then the following [facility] mandated warning applies: This information has been disclosed to you from confidential records which are protected by state law. State law prohibits you from making any further disclosure of this information without the specific written consent of the person to whom it pertains, or as otherwise permitted by law. Any unauthorized further disclosure in violation of state law may result in a fine or halfway sentence or both. A general authorization for the release of medical or other information is NOT sufficient authorization for further disc losure. Allergies and Adverse Reactions Type Description Substance Reaction Status Data Source(s ) Allergy to substance Allergy to substance Allergy to substance YUNG ([facility]) Family History Family Member Name Family Member Gender Family Member Status Date o f Status Description Data Source(s) Unknown Male Problem MEDENT ([facility] ) Encounters Encounter Providers Location Date Indications Data Source(s ) (WND STRTCH) Stretcher Required Patients [address] [place] [address] 12/15/2020 12:00:00 AM EST eCW1 ([facility]) Unknown [address] [facility], [facility] [address] 12/14/2020 12:00:00 AM EST eCW1 ([facility]) (WND STRTCH) Stretcher Required Patients [address] [place] [address] 12/04/2020 12:00:00 AM EST eCW1 ([facility]) ([id number]) For Template Landon [address] [place] [address] 11/27/2020 12:00:00 AM EST eCW1 ([facility]) ([id number]) For Template Landon [address] [place] [address] 11/20/2020 12:00:00 AM EST eCW1 ([facility]) Unknown [address] [facility] [address] 11/18/2020 12:00:00 AM EST eCW1 ([facility]) Unknown [address] [facility] [address] 11/16/2020 12:00:00 AM EST eCW1 [facility]) Outpatient [address] [facility] [address] 10/30/2020 12:00:00 AM EST eCW1 ([facility]) ([id number]) For Template [place]andon [address] [place] [address] 10/23/2020 12:00:00 AM EST eCW1 ([facility]) ([id number]) For Template [place]andon [address] [place] [address] 10/16/2020 12:00:00 AM EST eCW1 ([facility]) Unknown [address] [facility] [place] [address] 10/16/2020 12:00:00 AM EST eCW1 ([facility]) Unknown [address] [facility] [place] [address] 10/02/2020 12:00:00 AM EST eCW1 ([facility]) Unknown [address] [facility] [place] [address] 10/02/2020 12:00:00 AM EST eCW1 ([facility]) Outpatient [address] [facility] [address] 09/25/2020 12:00:00 AM EST eCW1 ([facility]) ([id number]) For Template Landon [address] [place] [address] 09/18/2020 12:00:00 AM EST eCW1 ([facility]) ([id number]) For Template Landon [facility] [place] [address] 09/11/2020 12:00:00 AM EDT eCW1 ([facility]) Unknown [address] [facility] [address] 09/10/2020 12:00:00 AM EDT eCW1 ([facility]) Outpatient Attender: MARYLU TORREZ 09/07/2020 11:30:02 A M EDT [facility] Unknown [address] [place] [address] 09/07/2020 12:00:00 AM EDT eCW1 ([facility]) MARYLU Padilla-BC: [address] [place] [address] [place] [address], Ph. Attender: Jazmyne VALERO [facility] Medical 09/07/2020 12:00:00 AM EDT YUNG ([facility]) ([id number]) For Template [place]andon [address] [place] [address] 09/04/2020 12:00:00 AM EDT eCW1 ([facility]) Outpatient Attender: MARYLU TORREZ 08/31/2020 09:14:02 P M EDT [facility] Outpatient Attender: Jazmyne TORREZ 08/31/2020 09:1 4:02 PM EDT [facility] Outpatient Attender: MARYLU TORREZ 08/31/2020 09:13:00 P M EDT [facility] Outpatient Attender: Jazmyne TORREZ 08/31/2020 09:1 3:00 PM EDT [facility] Outpatient Attender: Jazmyne TORREZ 08/31/2020 08:1 7:02 PM EDT [facility] Outpatient Attender: MARYLU TORREZ 08/31/2020 09:29:01 A M EDT [facility] ([id number]) For Template Landon [address] [place] [address] 08/28/2020 12:00:00 AM EDT eCW1 ([facility]) ([id number]) For Template Landon [address] [place] [address] 08/21/2020 12:00:00 AM EDT eCW1 ([facility]) Outpatient Attender: MARYLU VALERO FP 08/20/2020 10:31:01 A M EDT [facility] Outpatient [address] [facility] [address] 08/14/2020 12:00:00 AM EDT eCW1 ([facility]) Unknown [address] [facility] [address] 08/14/2020 12:00:00 AM EDT eCW1 ([facility]) Outpatient Attender: MARYLU TORREZ 08/12/2020 06:10:02 A M EDT [facility] Outpatient Attender: Jazmyne TORREZ 08/12/2020 06:1 0:01 AM EDT [facility] Unknown [address] [facility] [address] 08/12/2020 12:00:00 AM EDT eCW1 ([facility]) Outpatient Attender: MARYLU TORREZ 08/07/2020 12:02:12 A M EDT [facility] Outpatient Attender: Jazmyne TORREZ 08/06/2020 04:4 6:01 PM EDT [facility] Outpatient Attender: MARYLU TORREZ 08/06/2020 04:46:00 P M EDT [facility] Outpatient Attender: MARYLU TORREZ 08/06/2020 02:42:00 P M EDT [facility] Outpatient Attender: MARYLU TORREZ 08/06/2020 02:40:00 P M EDT [facility] Outpatient Attender: MARYLU TORREZ 08/06/2020 02:39:00 P M EDT [facility] Outpatient Attender: MARYLU DYERP FP 08/05/2020 12:02:16 A M EDT [facility] Outpatient Attender: MARYLU DYERP FP 08/04/2020 11:35:01 A M EDT [facility] Outpatient Attender: MARYLU Morse GLUE JOINTER FEEDER FP 08/01/2020 12:02:05 A M EDT [facility] Outpatient Attender: Jazmyne Morse GLUE JOINTER FEEDER FP 07/31/2020 11:2 6:01 AM EDT [facility] Outpatient Attender: MARYLU Morse GLUE JOINTER FEEDER FP 07/31/2020 09:54:00 A M EDT [facility] Outpatient Attender: MARYLU Morse GLUE JOINTER FEEDER FP 07/31/2020 09:50:01 A M EDT [facility] Outpatient Attender: Jazmyne DYERP FP 06/04/2020 11:4 4:00 PM EDT [facility] Outpatient Attender: MARYLU Morse GLUE JOINTER FEEDER FP 06/04/2020 11:43:59 P M EDT [facility] Outpatient Attender: MARYLU Morse GLUE JOINTER FEEDER FP 04/21/2020 07:37:54 P M EDT [facility] Outpatient Attender: Jazmyne Morse GLUE JOINTER FEEDER FP 04/12/2020 05:2 6:01 PM EDT [facility] Outpatient Attender: MARYLU DYERP FP 03/26/2020 11:15:00 A M EDT [facility] Outpatient Attender: Jazmyne Morse GLUE JOINTER FEEDER FP 03/25/2020 10:5 9:01 PM EDT [facility] Outpatient Attender: MARYLU DYERP FP 02/18/2020 11:49:01 A M EDT [facility] Outpatient Attender: MARYLU Morse GLUE JOINTER FEEDER FP 02/14/2020 10:43:00 A M EDT [facility] Outpatient Attender: MARYLU Morse GLUE JOINTER FEEDER FP 02/07/2020 08:01:20 P M EDT [facility] Outpatient Attender: MARYLU DYERP FP 02/01/2020 09:42:02 P M EDT [facility] Outpatient Attender: Jazmyne DYERP FP 02/01/2020 09:4 2:01 PM EDT [facility] Outpatient Attender: Jazmyne DYERP FP 01/09/2020 07:5 5:00 PM [facility] Outpatient Attender: Jazmyne DYERP FP 01/09/2020 01:4 9:02 PM [facility] Outpatient Attender: MARYLU DYERP FP 01/09/2020 01:47:01 P [facility] Outpatient Attender: Jazmyne DYERP FP 01/09/2020 01:4 7:00 PM [facility] Outpatient Attender: MARYLU DYERP FP 01/08/2020 09:29:01 A [facility] Outpatient Attender: Jazmyne Morse GLUE JOINTER FEEDER FP 01/06/2020 01:5 1:02 PM [facility] Outpatient Attender: MARYLU Morse GLUE JOINTER FEEDER FP 01/06/2020 01:04:00 P [facility] Outpatient Attender: MARYLU DYERP FP 01/06/2020 01:03:00 P [facility] Outpatient Attender: MARYLU Morse GLUE JOINTER FEEDER FP 01/06/2020 01:02:01 P [facility] Outpatient Attender: MARYLU Morse GLUE JOINTER FEEDER FP 01/06/2020 12:46:00 P [facility] Outpatient Attender: MARYLU Morse GLUE JOINTER FEEDER FP 01/06/2020 12:10:03 P [facility] Outpatient Referrer: Sarai MONTERROSO 12/25/2019 03:28:00 PM [facility] Outpatient Attender: Jazmyne DYERP FP 12/06/2019 09:3 2:16 AM [facility] Outpatient Attender: MARYLU Morse GLUE JOINTER FEEDER FP 11/29/2019 11:21:01 A [facility] Outpatient Attender: MARYLU Morse GLUE JOINTER FEEDER FP 11/04/2019 09:01:02 P [facility] Outpatient Attender: MARYLU Morse GLUE JOINTER FEEDER FP 11/01/2019 08:01:42 P [facility] Immunizations Vaccine Date Status Description Data Source(s) influenza, recombinant, quadrIvalent,injectable, prese rvative free 08/21/2020 01:11:00 PM EDT completed eCW1 ([facility]) influenza, recombinant, quadrIvalent,injectable, prese rvative free 08/21/2020 01:11:00 PM EDT completed eCW1 ([facility]) influenza, recombinant, quadrIvalent,injectable, prese rvative free 08/21/2020 01:11:00 PM EDT completed eCW1 ([facility]) influenza, recombinant, quadrIvalent,injectable, prese rvative free 08/21/2020 01:11:00 PM EDT completed eCW1 ([facility]) influenza, recombinant, quadrIvalent,injectable, prese rvative free 08/21/2020 01:11:00 PM EDT completed eCW1 ([facility]) influenza, recombinant, quadrIvalent,injectable, prese rvative free 08/21/2020 01:11:00 PM EDT completed eCW1 ([facility]) influenza, recombinant, quadrIvalent,injectable, prese rvative free 08/21/2020 01:11:00 PM EDT completed eCW1 ([facility]) influenza, recombinant, quadrIvalent,injectable, prese rvative free 08/21/2020 01:11:00 PM EDT completed eCW1 ([facility]) influenza, recombinant, quadrIvalent,injectable, prese rvative free 08/21/2020 01:11:00 PM EDT completed eCW1 ([facility]) influenza, recombinant, quadrIvalent,injectable, prese rvative free 08/21/2020 01:11:00 PM EDT completed eCW1 ([facility]) influenza, recombinant, quadrIvalent,injectable, prese rvative free 08/21/2020 01:11:00 PM EDT completed eCW1 ([facility]) influenza, recombinant, quadrIvalent,injectable, prese rvative free 08/21/2020 01:11:00 PM EDT completed eCW1 ([facility]) influenza, recombinant, quadrIvalent,injectable, prese rvative free 08/21/2020 01:11:00 PM EDT completed eCW1 ([facility]) influenza, recombinant, quadrIvalent,injectable, prese rvative free 08/21/2020 01:11:00 PM EDT completed eCW1 ([facility]) influenza, recombinant, quadrIvalent,injectable, prese rvative free 08/21/2020 01:11:00 PM EDT completed eCW1 ([facility]) influenza, recombinant, quadrIvalent,injectable, prese rvative free 08/21/2020 01:11:00 PM EDT completed eCW1 ([facility]) influenza, recombinant, quadrIvalent,injectable, prese rvative free 08/21/2020 01:11:00 PM EDT completed eCW1 ([facility]) influenza, recombinant, quadrIvalent,injectable, prese rvative free 08/21/2020 01:11:00 PM EDT completed eCW1 ([facility]) influenza, recombinant, quadrIvalent,injectable, prese rvative free 08/21/2020 01:11:00 PM EDT completed eCW1 ([facility]) influenza, recombinant, quadrIvalent,injectable, prese rvative free 08/21/2020 01:11:00 PM EDT completed eCW1 ([facility]) influenza, recombinant, quadrIvalent,injectable, prese rvative free 08/21/2020 01:11:00 PM EDT completed eCW1 ([facility]) influenza, recombinant, quadrIvalent,injectable, prese rvative free 08/21/2020 01:11:00 PM EDT completed eCW1 ([facility]) influenza, recombinant, quadrIvalent,injectable, prese rvative free 08/21/2020 01:11:00 PM EDT completed eCW1 ([facility]) Medications Medication Brand Name Start Date Product Form Dose Route Admi nistrative Instructions Pharmacy Instructions Status Indications Reaction Description Data Source(s) 0.25 mg 11/16/2020 12:00:00 AM EST tablet 30 TAKE ONE TABLET BY MOUTH AT BEDTIME TAKE ONE TABLET BY MOUTH AT BEDTIME SOLD: 11/16/2020 [facility] 100 unit/mL (3 mL) 11/15/2020 12:00:00 AM EST insulin pen 30 INJECT 50 UNITS SUBCUTANEOUSLY EVERY MORNING AND 30 UNITS EVERY EVENING MAXIMUM DAILY DOSE = 80 UNITS INJECT 50 UNITS SUBCUTANEOUSLY EVERY MOR ISABELLA AND 30 UNITS EVERY EVENING MAXIMUM DAILY DOSE = 80 UNITS SOLD: 11/15/2020 [facility] 81 mg 09/17/2020 12:00:00 AM EST tablet,delayed release (DR/EC) 30 TAKE ONE TABLET BY MOUTH EVERY DAY TAKE ONE TABLET BY MOUTH EVERY DAY SOLD: 10/19/2020 [facility] 81 mg 09/17/2020 12:00:00 AM EST tablet,delayed release (DR/EC) 30 TAKE ONE TABLET BY MOUTH EVERY DAY TAKE ONE TABLET BY MOUTH EVERY DAY SOLD: 09/18/2020 [facility] 75 mg 09/17/2020 12:00:00 AM EST tablet 90 TAKE ONE TABLET BY MOUTH EVERY DAY TAKE ONE TABLET BY MOUTH EVERY DAY SOLD: 09/18/2020 [facility] 1,250 mcg (50,000 unit) 09/08/2020 12:00:00 AM EDT capsule 12 TAKE 1 CAPSULE BY MOUTH ONCE A WEEK TAKE 1 CAPSULE BY MOUTH ONCE A WEEK SOLD: 09/08/2020 [facility] 325 mg (65 mg iron) 09/08/2020 12:00:00 AM EDT tablet 60 TAKE ONE TABLET BY MOUTH TWICE A DAY TAKE ONE TABLET BY MOUTH TWICE A DAY SOLD: 09/08/2020 [facility] doxycycline hyclate 100 MG Oral Tablet DOXYCYCLINE HYCLATE 1 12:00:00 AM EDT tablet 60 TAKE ONE TABLET BY MOUTH TWI CE A DAY TAKE ONE TABLET BY MOUTH TWICE A DAY SOLD: 08/22/2020 [facility] doxycycline hyclate 100 MG Oral Tablet Doxycycline Hyc late 100 MG Doxycycline Hyclate 100 MG 08/21/2020 12:00:00 AM EDT 1.0 {tablet} active Doxycycline Hyclate 100 MG eCW1 ([facility]) 0.25 mg 08/07/2020 12:00:00 AM EDT tablet 30 TAKE ONE TABLET BY MOUTH AT BEDTIME TAKE ONE TABLET BY MOUTH AT BEDTIME SOLD: 09/14/2020 [facility] 0.25 mg 08/07/2020 12:00:00 AM EDT tablet 30 TAKE ONE TABLET BY MOUTH AT BEDTIME TAKE ONE TABLET BY MOUTH AT BEDTIME SOLD: 10/12/2020 [facility] 0.25 mg 08/07/2020 12:00:00 AM EDT tablet 30 TAKE ONE TABLET BY MOUTH AT BEDTIME TAKE ONE TABLET BY MOUTH AT BEDTIME SOLD: 08/08/2020 [facility] 31 gauge x 1/4" 07/31/2020 12:00:00 AM EDT needle 100 DIRECTED THREE TIMES A DAY DIRECTED THREE TIMES A DAY SOLD: 08/06/2020 [facility] 31 gauge x 1/4" 07/31/2020 12:00:00 AM EDT needle 100 DIRECTED THREE TIMES A DAY DIRECTED THREE TIMES A DAY SOLD: 11/01/2020 [facility] 4 mg 07/30/2020 12:00:00 AM EDT tablet 5 TAKE ONE TABLET BY MOUTH EVERY 6 TO 8 HOURS NEEDED FOR NAUSEA AND VOMITING TAKE ONE TABLET BY MOUTH EVERY 6 TO 8 HOURS NEEDED FOR NAUSEA AND VOMITING SOLD: 07/30/2020 [facility] 750 mg 06/22/2020 12:00:00 AM EDT tablet 10 TAKE ONE TABLET BY MOUTH EVERY DAY TAKE ONE TABLET BY MOUTH EVERY DAY SOLD: 06/22/2020 [facility] 300 mg 06/09/2020 12:00:00 AM EDT capsule 30 TAKE ONE CAPSULE BY MOUTH EVERY 8 HOURS WITH FOOD UNTIL GONE TAKE ONE CAPSULE BY MOUTH EVERY 8 HOURS WITH FOOD UNTIL GONE SOLD: 06/09/2020 [facility] Metronidazole 500 MG Oral Tablet METRONIDAZOLE 06/07/2020 12:0 0:00 AM EDT tablet 45 TAKE ONE TABLET BY MOUTH THREE T IMES A DAY TAKE ONE TABLET BY MOUTH THREE TIMES A DAY SOLD: 06/07/2020 [facility] 750 mg 06/07/2020 12:00:00 AM EDT tablet 14 TAKE ONE TABLET BY MOUTH EVERY DAY TAKE ONE TABLET BY MOUTH EVERY DAY SOLD: 06/07/2020 [facility] 500 mg 06/01/2020 12:00:00 AM EDT tablet 30 TAKE ONE TABLET BY MOUTH EVERY 8 HOURS TAKE ONE TABLET BY MOUTH EVERY 8 HOURS SOLD: 06/01/2020 [facility] 300 mg 06/01/2020 12:00:00 AM EDT capsule 30 TAKE ONE CAPSULE BY MOUTH EVERY 8 HOURS WITH FOOD UNTIL GONE TAKE ONE CAPSULE BY MOUTH EVERY 8 HOURS WITH FOOD UNTIL GONE SOLD: 06/01/2020 [facility] 300 mg 05/19/2020 12:00:00 AM EDT capsule 30 TAKE ONE CAPSULE BY MOUTH EVERY 8 HOURS WITH FOOD UNTIL GONE TAKE ONE CAPSULE BY MOUTH EVERY 8 HOURS WITH FOOD UNTIL GONE SOLD: 05/19/2020 [facility] 500 mg 05/19/2020 12:00:00 AM EDT tablet 30 TAKE ONE TABLET BY MOUTH EVERY 8 HOURS TAKE ONE TABLET BY MOUTH EVERY 8 HOURS SOLD: 05/19/2020 [facility] 300 mg 04/29/2020 12:00:00 AM EDT capsule 30 TAKE ONE CAPSULE BY MOUTH EVERY 8 HOURS WITH FOOD UNTIL GONE TAKE ONE CAPSULE BY MOUTH EVERY 8 HOURS WITH FOOD UNTIL GONE SOLD: 04/29/2020 [facility] 500 mg 04/28/2020 12:00:00 AM EDT tablet 20 TAKE ONE TABLET BY MOUTH TWICE A DAY TAKE ONE TABLET BY MOUTH TWICE A DAY SOLD: 04/28/2020 [facility] 1 % 04/22/2020 12:00:00 AM EDT cream 400 APPLY TO LARGE ULCER TWO TIMES A DAY APPLY TO LARGE ULCER TWO TIMES A DAY SOLD: 04/22/2020 [facility] 333 mg 04/17/2020 12:00:00 AM EDT tablet,delayed release (DR/EC) 30 TAKE ONE TABLET BY MOUTH EVERY 8 HOURS TAKE ONE TABLET BY MOUTH EVERY 8 HOURS SOLD: 04/17/2020 [facility] 100 unit/mL (3 mL) 04/13/2020 12:00:00 AM EDT insulin pen 30 INJECT 50 UNITS EVERY MORNING AND 30 UNITS EVERY EVENING MAXIMUM DAILY DOSE = 80 UNITS INJECT 50 UNITS EVERY MORNING AND 30 UNITS EVERY EVENING MAXIMUM DAILY DOSE = 80 UNITS SOLD: 04/13/2020 [facility] 20 mg 04/13/2020 12:00:00 AM EDT tablet 90 TAKE ONE TABLET BY MOUTH AT BEDTIME TAKE ONE TABLET BY MOUTH AT BEDTIME SOLD: 07/29/2020 [facility] silver sulfadiazine 10 MG/ML Topical Cream [SSD] SILVER SULF ADIAZINE 04/13/2020 12:00:00 AM EDT cream 50 APPLY TO ULCER TWO TIMES A DAY APPLY TO ULCER TWO TIMES A DAY SOLD: 04/13/2020 [facility] 28 gauge 04/13/2020 12:00:00 AM EDT misc 100 CHECK BLOOD GLUCOSE TESTIGN ONCE DAILY CHECK BLOOD GLUCOSE TESTIGN ONCE DAILY SOLD: 04/13/2020 [facility] 20 mg 04/13/2020 12:00:00 AM EDT tablet 90 TAKE ONE TABLET BY MOUTH AT BEDTIME TAKE ONE TABLET BY MOUTH AT BEDTIME SOLD: 04/16/2020 [facility] 500 mg 04/11/2020 12:00:00 AM EDT capsule 40 TAKE TWO CAPSULES BY MOUTH TWICE A DAY FOR 10 DAYS TAKE TWO CAPSULES BY MOUTH TWICE A DAY FOR 10 DAYS SOFI [facility] Erythromycin 333 MG Delayed Release Oral Tablet erythromycin 333 mg tablet,delayed release erythromycin 333 mg tablet,delayed release completed erythromycin 333 MG Delayed Rele ase Oral Tablet YUNG ([facility]) Penicillin V Potassium 500 MG Oral Tablet penicillin V potassium 500 mg tablet penicillin V potassium 500 mg tablet c ompleted penicillin V potassium 500 MG Oral Tablet YUNG ([facility]) doxycycline hyclate 100 MG Oral Tablet doxycycline hyc late 100 mg tablet doxycycline hyclate 100 mg tablet comp leted doxycycline hyclate 100 MG Oral Tablet YUNG ([facility]) Metronidazole 500 MG Oral Tablet metronidazole 500 mg tablet metronidazole 500 mg tablet completed metronidazol e 500 MG Oral Tablet [facility] ([facility]) Clindamycin 300 MG Oral Capsule clindamycin HCl 300 mg capsule clindamycin HCl 300 mg capsule completed clindam ycin 300 MG Oral Capsule [facility] ([facility]) silver sulfadiazine 10 MG/ML Topical Cre am silver sulfadiazine 1 % topical cream silver sulfadiazine 1 % topical cream completed silver sulfadiazine 10 MG/ML Topical Cream YUNG ([facility]) Cephalexin 500 MG Oral Capsule cephalexin 500 mg capsu le cephalexin 500 mg capsule completed cephalexin 500 MG Oral Capsule [facility] ([facility]) Levofloxacin 750 MG Oral Tablet levofloxacin 750 mg ta blet levofloxacin 750 mg tablet completed levofloxacin 75 0 MG Oral Tablet [facility] ([facility]) Insurance Providers Payer name Policy type / Coverage type Policy ID Covered alliance party ID Covered alliance party's relationship to landon Policy Landon Plan Information MEDICARE COMPLETE [id number] SP [id number] MEDICARE COMPLETE [id number] SP [id number] MEDICARE [id number] SP [id number] A MEDICARE [id number] SP [id number] [facility] P [id number] S [id number] Medicare S [id number] S [id number] A [facility] [id number] SP [id number] MEDICARE BLUE PPO 306 [id number] SP [id number] SELF PAY ONLY [id number] SP [id number] MEDICARE COMPLETE-[facility] O [id number] S [id number] [facility] [id number] SP [id number] UNHC COMMUNITY PLAN MCDHMO [id number] SP [id number] [facility] Secure Horizons P [id number] S [id number] Excell[employer] BCBS S [id number] S [id number] [id number] MEDICARE COMPLETE-C O [id number] S [id number] MEDICARE COMPLETE [id number] SP [id number] Medicare P [id number] S [id number] A Bshmo ZFC,Yot,Yoy,ZFH,ZFP Medigap Part B [id number] Self [id number] MVP (pr) Commercial [id number] Self [id number] [employer] Shield MCR Advantage Commercial [id number] Self [id number] [employer] BCYO P [id number] S [id number] [id number] [facility] O [id number] S [id number] SELF PAY ONLY UNAVAILABLE SP UNAV AILABLE [facility] P [id number] S [id number] Self Pay P [id number] S [id number] [facility] P [id number] S [id number] [facility] [id number] SP [id number] [facility] [id number] SP [id number] [facility] P [id number] S [id number] [facility] PHY [id number] SP [id number] [facility] COMM HMO [id number] S [id number] [facility] O [id number] S [id number] [facility] PHY [id number] SP [id number] SELF PAY UNAVAILABLE UNAVAILA BLE Sliding Fee Scale S [id number] S [id number] [facility] P [id number] S [id number] P UNAVAILABLE UNAVAILA BLE [facility] P [id number] S [id number] [facility] P [id number] S [id number] [facility] P [id number] S [id number] [employer]BS [place] PPO 302/307 [id number] SP [id number] Problems, Conditions, and Diagnoses Code Display Name Description Problem Type Effective Dates Data Source(s) L97.422 [id number] Non-pressure chronic ulcer of left heel and midfoot with fat layer exposed Problem 09/25/2020 12:00:00 AM EST eCW1 ([facility]) L97.411 [id number] Non-pressure chronic ulcer of right 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 Problem 08/28/2020 12:00:00 AM EDT eCW1 ([facility], [facility]) [id number] Clinical finding Clinical Finding Problem 08/27/2020 04 :30:27 PM EDT YUNG ([facility]) L97.524 [id number] Non-pressure chronic ulcer of other part of left foot with necrosis of bone Problem 08/14/2020 12:00:00 AM EDT eCW1 ([facility]) L97.512 [id number] Non-pressure chronic ulcer of other part of right foot with fat layer exposed Problem 08/13/2020 12:00:00 AM EDT [facility] ([facility]) E11.621 [id number] Type 2 diabetes mellitus with foot ulcer Problem 08/13/2020 12:00:00 AM EDT eCW1 ([facility]) Z89.422 Acquired absence of other left toe(s) Amputated toe of left foot 08/12/2020 06:09:35 AM EDT [facility] V05.9 Vaccination Vaccination 08/12/2020 06:09:35 AM EDT [facility] 781.2 Unsteady gait Unsteady gait 01/06/2020 12:08:58 PM [facility] [id number] Clinical history and observation finding s Clinical History and Observation Findings Problem 01/06/2020 12:00:00 AM EST YUNG ([facility]) Surgeries/Procedures Procedure Description Date Indications Data Source(s) Medication: 2% Lidocaine intradermal 12/15/2020 12:00: 00 AM EST eCW1 ([facility]) FINE NEEDLE ASPIRATION W/O IMAGING GUIDANCE 12/15/2020 12:00:00 AM EST eCW ([facility]) FINE NEEDLE ASPIRATION W/O IMAGING GUIDANCE 12/04/2020 12:00:00 AM EST [facility] ([facility]) FINE NEEDLE ASPIRATION W/O IMAGING GUIDANCE 11/27/2020 12:00:00 AM EST eCW1 ([facility]) FINE NEEDLE ASPIRATION W/O IMAGING GUIDANCE 11/20/2020 12:00:00 AM EST eCW1 ([facility]) FINE NEEDLE ASPIRATION W/O IMAGING GUIDANCE 10/30/2020 12:00:00 AM EST eCW1 ([facility]) FINE NEEDLE ASPIRATION W/O IMAGING GUIDANCE 10/23/2020 12:00:00 AM EST eCW1 ([facility]) FINE NEEDLE ASPIRATION W/O IMAGING GUIDANCE 10/16/2020 12:00:00 AM EST eCW1 ([facility]) FINE NEEDLE ASPIRATION W/O IMAGING GUIDANCE 09/25/2020 12:00:00 AM EST eCW1 ([facility]) FINE NEEDLE ASPIRATION W/O IMAGING GUIDANCE 09/18/2020 12:00:00 AM EST eCW1 ([facility]) FINE NEEDLE ASPIRATION W/O IMAGING GUIDANCE 09/11/2020 12:00:00 AM EDT eCW1 ([facility]) FINE NEEDLE ASPIRATION W/O IMAGING GUIDANCE 09/04/2020 12:00:00 AM EDT eCW1 ([facility]) FINE NEEDLE ASPIRATION W/O IMAGING GUIDANCE 08/28/2020 12:00:00 AM EDT eCW1 ([facility]) FINE NEEDLE ASPIRATION W/O IMAGING GUIDANCE 08/21/2020 12:00:00 AM EDT eCW1 ([facility]) Results ID Date Data Source [id number] 08/31/2020 10:40:33 AM EDT [facility] Labs In-House Blood TestsDate/Time Colle cted: August 31, 2020 9:35 AMTest Result Reference Range Normal ValueComments: Blood drawn in office from left AC, jaquelin Sales MA, August 31, 2020 10:41 AMAssessment & Plan Orders:[id number] Vst-Est Level I [CPT-35459] [id number] - Venipuncture [CPT-00480] Name Value Range Interpretation Code Description Data Lynette rce(s) Supporting Document(s) ID Date Data Source [id number] 08/31/2020 09:35:00 AM EDT [facility] Name Value Range Interpretation Code Description Data Lynette rce(s) Supporting Document(s) VIT D25 TOT 17.7 ng/mL 30.0-100.0 L [facility] BG FASTING 225 mg/dL 70-100 [facility] T4, FREE 1.57 ng/dL 0.76-1.46 [facility] TSH 2.090 microintl units/mL 0.358-3.740 N [facility] ID Date Data Source [id number] 08/31/2020 09:35:00 AM EDT [facility] Name Value Range Interpretation Code Description Data Lynette rce(s) Supporting Document(s) HCT 36.3 % 36.0-47.0 [facility] HGB 10.9 g/dL 12.0-15.5 L [facility] Health MCH 30.0 G/DL pg 32.0-36.5 L [facility] MCHC 24.3 PG % 27.0-33.0 L [facility] PLATELETS 541 10 10*3/mm3 150-450 [facility] RBC 4.48 10 10*6/mm3 4.00-5.40 N [facility] RDW 15.1 % 11.5-14.5 H [facility] WBC TOTAL 10.6 4.0-10.0 H [facility] ID Date Data Source [id number] 08/31/2020 09:35:00 AM EDT [facility] Name Value Range Interpretation Code Description Data Lynette rce(s) Supporting Document(s) HGBA1C 8.0 % N [facility] ID Date Data Source PREALBUMIN 08/28/2020 04:05:44 AM EDT eCW1 ([facility]) Name Value Range Interpretation Code Description Data Lynette rce(s) Supporting Document(s) 10.4 PREALBUMIN eCW1 (Counts include 234 beds at the [facility]) ID Date Data Source C REACTIVE PROTEIN QUANTITATIV (At [facility]) 08/28/2020 04:05 :37 AM EDT eCW1 ([facility]) Name Value Range Interpretation Code Description Data Lynette rce(s) Supporting Document(s) 8.26 C REACTIVE PROTEIN QUANTITATIV eCW1 ([facility]) ID Date Data Source Comprehensive Metabolic Profile (CMP) 08/28/2020 04:05:31 AM EDT eCW1 ([facility]) Name Value Range Interpretation Code Description Data Lynette rce(s) Supporting Document(s) 16 BLOOD UREA NITROGEN eCW1 ([facility]) 179 GLUCOSE, FASTING eCW1 ([facility]) 0.82 CREATININE FOR GFR eCW1 (Formerly [facility], 1928–1983) 4.2 POTASSIUM SERUM eCW1 ([facility]) 101 CHLORIDE LEVEL eCW1 ([facility]) > 60.0 GLOMERULAR FILTRATION RATE eCW 1 ([facility]) 135 SODIUM LEVEL eCW1 (Critical access hospital) 9 ALT/SGPT eCW1 ([facility]) 28 CARBON DIOXIDE LEVEL eCW1 ([facility]) 9.2 CALCIUM LEVEL eCW1 ([facility]) 5 AST/SGOT eCW1 ([facility]) 0.7 BILIRUBIN,TOTAL eCW1 ([facility]) 94 ALKALINE PHOSPHATASE eCW1 ([facility]) 7.1 TOTAL PROTEIN eCW1 ([facility]) 0.7 ALBUMIN/GLOBULIN RATIO [facility] 2.9 ALBUMIN eCW1 ([facility]) ID Date Data Source [id number] 08/28/2020 04:05:20 AM EDT eCW1 ([facility]) Name Value Range Interpretation Code Description Data Lynette rce(s) Supporting Document(s) Hemoglobin A1c/Hemoglobin.total in Blood 7.8 HEMOGLOBIN A1c eCW1 ([facility]) ID Date Data Source ERYTHROCYTE SEDIMENTATION RATE 08/28/2020 04:05:13 AM EDT eC W1 ([facility]) Name Value Range Interpretation Code Description Data Lynette rce(s) Supporting Document(s) 65 ERYTHROCYTE SEDIMENTATION RATE eCW1 ([facility]) ID Date Data Source CBC with Differential 08/28/2020 04:05:03 AM EDT eCW1 ([facility]ly [facility], [facility]) Name Value Range Interpretation Code Description Data Lynette rce(s) Supporting Document(s) 8.1 WHITE BLOOD COUNT eCW1 ([facility]ly [facility], [facility]) 33.5 HEMATOCRIT eCW1 (Counts include 234 beds at the [facility]) 80.5 MEAN CORPUSCULAR VOLUME eCW1 ( [facility]) 4.16 RED BLOOD COUNT eCW1 ([facility]) 10.0 HEMOGLOBIN eCW1 (Counts include 234 beds at the [facility]) 15.5 RED CELL DISTRIBUTION WIDTH eC W1 ([facility]) 24.0 MEAN CORPUSCULAR HEMOGLOBIN eC W1 ([facility]) 29.9 MEAN CORPUSCULAR HGB CONC eCW1 ([facility]) 365 PLATELET COUNT, AUTOMATED eCW1 ([facility]) 15.0 LYMPH % eCW1 ([facility]) 73.6 NEUTROPHILS % eCW1 ([facility]) 7.7 MONO % eCW1 ([facility]) 2.5 EOS % eCW1 ([facility]) 0.7 BASO % eCW1 ([facility]) 1.2 LYMPH # eCW1 ([facility]) 5.9 NEUTROPHILS # eCW1 ([facility]) 0.1 BASO # eCW1 ([facility]) 0.2 EOS # eCW1 ([facility]) 0.6 MONO # eCW1 ([facility]) ID Date Data Source WOUND CULTURE 08/21/2020 04:06:50 AM EDT eCW1 ([facility]) Name Value Range Interpretation Code Description Data Lynette rce(s) Supporting Document(s) WOUND CULTURE eCW1 ([facility]) ID Date Data Source Pathology Request For Service 08/21/2020 04:06:02 AM EDT eCW 1 ([facility]) Name Value Range Interpretation Code Description Data Lynette rce(s) Supporting Document(s) SKELETAL eCW1 ([facility]) ID Date Data Source [id number] 08/06/2020 03:17:19 PM EDT [facility] Measurements & CalculationsHeight: 67.50 inches 171.45 cm 5 ft. 7.5 in.Weight: 290 pounds 131.82 kg Body Mass Index (BMI): 44.91BMI Interpretation: Morbidly ObeseBody Surface Area (BSA): 2.38Weight Management Education Done (Nutrition/Physical Activity)Vital SignsTemperature: 97.8F 36.56C Pulse Rate: 75 beats/minuteRespiratory Rate: 16 respirations/minuteBlood Pressure: 108/66 O2 Saturation: 98% Vital Signs performed by: Carmen Phan MA, August 06, 2020 3:32 PMVital Signs performed by: Carmen Phan MA, August 06, 2020 3:32 PMInitial Intake Information From: patientRoom #: 12Infectious Disease / Travel ScreeningRecent travel for you or any close contacts? NoHave you had any close contact with anyone diagnosed with or under investigation for COVID-19 (coronavirus)? NoFever? NoRespiratory symptoms: cough, cold, congestion, shortness of breath, difficulty breathing? NoLoss of smell? NoLoss of taste? NoSmoking, Tobacco, Vaping or Smoke Exposure StatusSmoke Status: never smokerTobacco Use: NoDo you vape? NoPassive Smoke Exposure: NoMenstrual HistoryComments: menopauseHealthcare HistorySince your last office visit...Have you been admitted to the hospital? Yes - [facility]itain surgeryHospital admission date reported today: 05/19/2020Have you been to an emergency room (ER) or urgent care clinic? Yes - vomitingEmergency room (ER) or urgent care date reported today: 07/29/2020Have you seen another healthcare provider? Yes - Wound CareHave you seen a dentist? NoIntake performed by: Carmen Phan MA, August 06, 2020 3:25 PMRate Your HealthIn general, would you say your health is? PoorPain AssessmentAre you currently having any pain which... You would like your provider to address? No Affects your activity level? NoDepression Screening - PHQ-2Over the last two weeks, have you... Had little interest or pleasure in doing things? Not at all Been feeling down, depressed, or hopeless? Not at all PHQ-2 Score: 0Anxiety Screening - MICHOACANO-2Over the last two weeks, have you been... Feeling nervous, anxious, or on edge? Not at all Unable to stop or control worrying? Not at all MICHOACANO-2 Score: 0Food InsecurityWithin the past year...Did you worry whether your food would run out before you got money to buy more? Never trueWas there a time when the food you bought didn't last and you didn't have money to get more? Never trueScreening, Brief Intervention, & Referral to Treatment (SBIRT)Pre-Screening Questions How many times have you have 4 or more drinks in a day? 0How many times have you used an illegal drug or used a prescription medication for a non- medical reason? 0Performed by: Carmen Phan MA, August 06, 2020 3:26 PMPatient History Social/Personal History: Chief Complaintfollow-up visit amputation room 12History of Present Illness (HPI)60 YO female here for follow up following amputation of left 5th metatarsal. Patient would like risperidone refilled. It is originally from her neurologist. Pt is accompanied by her daughter today. Pt [facility]. Pt states sees Dr Nicholas at the wound center every other week. Pt states no longer sees Dr Escoto anymore Pt states that they had a disagreement about a bill. Pt states overwhelmed with recent left foot amputation. left partial ampu tation.. Pt states was prescribed Resperaldal for her Hammond shakes. Pt agree to neurology referral. Pt states will go as far as [place] if not able to get in locally. Pt would like to have a wheel chair ordered. 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 Pt presently uses rolling walker but has unsteady gait which increases risk for falls. pt also has diagnosis of diabetic neuropathy which also increases her risk for injuries from falls. HPI performed by: Jazmyne VALERO, August 06, 2020 3:59 PMTransitions of Care InboundProblem ReviewProblem List was reviewed and/or updated during this visit.Medication Reconciliation & ReviewMedication List was reviewed and/or updated during this visit, including review of any [id number] medications, herbal therapies, and/or supplements.Allergy ReviewAllergy List was reviewed and/or updated during this visit.Adult Preventive CareProvider Calculated and Reviewed all Clinical Protocols for patient today. Labs/Meds/Other Counseling- Nutrition and Physical Activity:BMI Interpretation: Morbidly Obese (08/06/2020) Counseling: Done (08/06/2020) Physical Activity: Done (08/06/2020)Review of Systems General: Denies loss of appetite, chills, dizziness, fatigue, fever, continued fever, headache, feeling ill, sweats, night sweats, sleep disturbances , weight loss. Eyes: Denies blurring of vision, double vision, irritation, discharge, vision loss, eye pain, eye swelling, droopy eyelid, sensitivity to light, redness, itching. Ears/Nose/Throat: Denies earache, ear discharge, ringing in ears, decreased hearing, nasal congestion, nosebleeds, runny nose, sore throat, hoarseness, difficulty swallowing, dry mouth, tooth pain, bleeding gums, swollen glands. Cardiovascular: Denies chest pain, palpitations, feeling faint, trouble breathing w/exertion, SOB upon lying down, SOB at night, peripheral edema, elevated blood pressure, decreased heart rate. Respiratory: Denies cough, difficulty breathing, shortness of breath, excessive sputum, coughing up blood, wheezing, chest pain. Breast: Denies discoloration, tenderness, breast changes, breast lump, nipple discharge. Gastrointestinal: Denies nausea, vomiting, bleeding, burning, itching, irritation, cramps, diarrhea, constipation. Genitourinary: Denies urinary incontinence, pain with urination, burning with urination, urinary frequency, urinary hesitancy, urinary urgency, urinary urgency at night, incomplete emptying, blood in urine. Musculoskeletal: Complains of back pain, joint pain, leg pain. left foot painSkin: Denies rash, hives, redness, itching, dryness, nail changes, suspicious lesions, athlete's foot, rash on palms, rash on bottom of feet. Neurologic: Denies muscle impairment, weakness, numbness/tingling, seizures, slurred speech, feeling faint, tremors, vertigo, paralysis on one side, paralysis on both sides. Psychiatric: Denies depression, anxiety, memory loss, mental disturbance, suicidal ideation, homicidal ideation, hallucinations, paranoia, feeling stressed, hearing voices. Endocrine: Denies cold intolerance, heat intolerance, excessive thirst, excessive hunger, excessive urination, weight loss, weight gain. Physical ExamGeneral Appearance: well nourished, well hydrated, no acute distressEyes, External: conjunctivae and lids normal, EOMIRespiratory, Auscultation: clear to auscultation bilaterally; no rales, rhonchi, or wheezesRespiratory, Effort: no intercostal retractions or use of accessory musclesCardiovascular, Auscultation: S1, S2 audible; no murmur, rub, o r gallop; RRRPeripheral Circulation: no clubbing, cyanosis, edema, or varicositiesAbdomen: soft, non-tender, no masses, bowel sounds normalGait & Station: Uses walker, unsteady gait, shakesSkin, Inspection: left foot surgical incisionOrientation: oriented to time, place, and personMood & Affect: no depression, anxiety, or agitationJudgment & Insight: needs assistance from familyCare Management Plan Transitions of CareInboundRate Your HealthIn general, would you say your health is? PoorAssessment & Plan Problems:Added: Amputated toe of left foot (NPF01-O40.422) Assessment: recent amputated left 5th metatarsal and metatarsal bone. 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 following podiatry and wound care. unable to view , covered with dressing. Instructions: Please continue to folllow with graduate civil engineer and physician specialist as scheduled. 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 W will contact [facility] to set this up. We will refill your Resperdal until you are established with a new Neurologist.Hypertension (ICD-401.9) (AKO93-V99) Assessment: Instructions: Your Blood Pressure is at goal today. Please continue medication as prescribed. Please continue lifestyle changes to include healthy diet and physical activities. Please try to avoid added sodium in your diet. Please try to avoid processed foods. Please try to maintain adequate Fluid intake.Unsteady gait (ICD-781.2) (TTD57-P14.81) Assessment: Pt would like to have a wheel chair ordered. 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 Pt presently uses rolling walker but has unsteady gait which increases risk for falls. pt also has diagnosis of diabetic neuropathy which also increases her risk for injuries from falls. Instructions: We have ordered a wheel chair for you today. We will fax script to [facility].MORBID OBESITY (ICD- 278.01) (JWG54-W49.01) Assessment: Instructions: Please continue lifestyle changes to include healthy diet and physical activities. please try to avoid processed foods.Pt try to limit sugars, carbohydrates, sodium and fats in your diet.Patient Instructions/Care Plan: Hammond's disease: We have made a referral for you today today. W will contact [facility] to set this up. We will refill your Resperdal until you are established with a new Neurologist.Hypertension: Your Blood Pressure is at goal today. Please continue medication as prescribed. Please continue lifestyle changes to include healthy diet and physical activities. Please try to avoid added sodium in your diet. Please try to avoid processed foods. Please try to maintain adequate Fluid intake.Amputated toe of left foot: Please continue to folllow with graduate civil engineer and physician specialist as scheduled. Please report any increased pain or signs and symptoms of infection.Vaccination: Flu vaccine given today.Unsteady gait: We have ordered a wheel chair for you today. We will fax script to [facility].MORBID OBESITY: Please continue lifestyle changes to include healthy diet and physical activities. please try to avoid processed foods.Pt try to limit sugars, carbohydrates, sodium and fats in your diet. Plan developed in collaboration with patient and/or familyMedications:WHEEL CHAIRFREESTYLE LITE TEST IN VITRO STRIPVITAMIN D3 2000 UNIT ORAL TABLETRISPERIDONE 0.25 MG ORAL TABLETCOLACE 100 MG ORAL CAPSULELANTUS SOLOSTAR 100 UNIT/ML SUBCUTANEOUS SOLUTION PEN-INJECTORPEN NEEDLES 31G X 6 MMLISINOPRIL 20 MG ORAL TABLETLANCETSMedication Changes:Refilled:RISPERIDONE 0.25 MG ORAL TABLET-take one tablet by mouth daily at bedtime. Qty: 30[Tablet] Refills: 2 Method: ElectronicNew Prescription:* WHEEL CHAIR-Use for assistance with Mobility Qty: 1 Refills: 0 Method: Print then Fax to PharmacyChanged:From: ORAL RISPERDAL 0.25 MG ORAL TABLET Qty: [id number] Refills: 30[Tablet] To: RISPERIDONE 0.25 MG ORAL TABLET-take one tablet by mouth daily at bedtime. Qty: 30[Tablet] Refills: 2Allergies:No Known Allergies (updated 12/04/2018) Orders:Neurology Consult [CPT-42657] COMP METABOLIC PANEL [CPT-41439] CBC W/DIFF [CPT-60796] HgBA1c [CPT-30610] LIPID PANEL [CPT-23263] TSH [CPT-35786] T-4 free [CPT-38301] Vitamin D 250H Unspecified [CPT-06407] URINALYSIS [CPT-44655] Urine Culture [CPT-47319] FluLaval Quadrivalent, preservative free [CPT-88766] 73949 - Immo Admin (over 19 yrs), 1st Vaccine [CPT-42538] Adult - Ofc Vst, EST, Level IV [CPT-46965] Follow- Up Return to clinic: 3-4 weeks for follow up Clinical Visit Summary CompletedMedications:WHEEL CHAIR Use for assistance with Mobility #1 x 0 En tered and Authorized by: Jazmyne VALERO Method used: Printed then faxed to ... [facility] (retail) [address] [place] [address] Fax: Indications: UNSTEADY GAIT;MORBID OBESITY;NEVIN'S DISEASE;AMPUTATED TOE OF LEFT FOOT RxID: [id number] 0.25 MG ORAL TABLET (RISPERIDONE) take one tablet by mouth daily at bedtime. #30[Tablet] x 2 Route:ORAL Entered and Authorized by: Jazmyne VALERO Method used: Electronically to [facility] (retail) [address] [place] [address] Ph: [phone] Note to Pharmacy: Route: ORAL; Indications: NEVIN'S DISEASE RxID: [id number] Questionnaire1) Does the patient have a long-term health problem with heart disease, lung disease, asthma, kidney disease, metabolic disease (e.g., diabetes), anemia, or other blood disorder? No2) Does the patient have allergies to medications, food, a vaccine component, or latex? No3) Does the patient have cancer, leukemia, AIDS, or any other immune system problem? No4) Does the patient live with or expect to have close contact with a person whose immune system is severely compromised and who must be in protective isolation (e.g., an isolation room of a bone marrow transplant unit)? No5) Does the patient take cortisone, prednisone, other steroids, or anticancer drugs, or has the patient had radiation treatments? No6) During the past year, has the patient received a transfusion of blood or blood products, or been given immune (gamma) globulin or an antiviral drug? No7) For women: Is the patient or is there a chance she could become during the next month? No8) Has the patient ever had a serious reaction to a vaccine in the past? No9) Has the patient had a seizure or a brain or other nervous system problem? No10) Has the patient received any vaccinations in the past 4 weeks? No11) Is the patient older than age 49 years? Yes12) Is the patient sick today? No13) Vaccine information given and explained to patient? YesVaccines Administered/Entered:Vaccination Group: InfluenzaSeries: 2Vaccination: Flucelvax Quadrivalent PF (4y+) AdultMfr / Lot# / Exp.Date: Seqirus / [id number] / 1Amt. Given / Route / Site: 0.5 mL / IM / Left DeltoidNDC / CVX: [id number] / 171Administered Date: 08/06/2020 17:16VFC Eligibility: Not VFC EligibleVIS Date: 06/27/2019VIS Given / VIS Given On: Yes / 08/06/2020Comments: Administered by: Amanda Moncada LPN Name Value Range Interpretation Code Description Data Lynette rce(s) Supporting Document(s) ID Date Data Source [id number] 07/30/2020 12:00:00 AM EDT [facility] Name Value Range Interpretation Code Description Data Lynette rce(s) Supporting Document(s) HCT 33.0 % 36.0-47.0 L [facility] HGB 10.1 g/dL 12.0-15.5 L [facility] MCH 30.6 G/DL pg 32.0-36.5 L [facility] MCHC 23.9 PG % 27.0-33.0 L [facility] PLATELETS 390 10 10*3/mm3 150-450 N [facility] RBC 4.22 10 10*6/mm3 4.00-5.40 N [facility] RDW 14.9 % 11.5-14.5 H [facility] WBC TOTAL 10.7 4.0-10.0 H [facility] ID Date Data Source [id number] 06/02/2020 03:31:00 PM EDT [facility] Name Value Range Interpretation Code Description Data Lynette rce(s) Supporting Document(s) BG FASTING 288 mg/dL 70-100 H [facility] y Health CRP 4.82 mg/dL 0.00-0.30 H [facility] ID Date Data Source [id number] 06/02/2020 03:31:00 PM EDT [facility] Name Value Range Interpretation Code Description Data Lynette rce(s) Supporting Document(s) ESR 76 mm/hr 0-30 H [facility] HCT 31.1 % 36.0-47.0 L [facility] HGB 9.7 g/dL 12.0-15.5 L [facility] MCH 31.2 G/DL pg 32.0-36.5 L [facility] MCHC 24.7 PG % 27.0-33.0 L [facility] PLATELETS 404 10 10*3/mm3 150-450 N [facility] RBC 3.93 10 10*6/mm3 4.00-5.40 L [facility] RDW 14.1 % 11.5-14.5 N [facility] WBC TOTAL 8.8 4.0-10.0 N [facility] ID Date Data Source [id number] 01/08/2020 10:03:35 AM EST [facility] Labs In-House Blood TestsDate/Time Colle cted: January 08, 2020 10:03 AMDate/Time Received: January 08, 2020 10:03 AMTest Result Reference Range Normal ValueComments: blood draw done in office done in the right ac tolerated well Sumit Coleman KIM, January 08, 2020 10:03 AMAssessment & Plan Orders:[id number] Vst-Est Level I [CPT-54652] 88767 - Venipuncture [CPT- 40880] Name Value Range Interpretation Code Description Data Lynette rce(s) Supporting Document(s) ID Date Data Source [id number] 01/08/2020 10:00:00 AM EST [facility] Name Value Range Interpretation Code Description Data Lynette rce(s) Supporting Document(s) VIT D25 TOT 19.3 ng/mL 30.0-100.0 L [facility] BG FASTING 182 mg/dL 70-100 H [facility] T4, FREE 1.31 ng/dL 0.76-1.46 N [facility] TSH 2.170 microintl units/mL 0.358-3.740 N [facility] ID Date Data Source [id number] 01/08/2020 10:00:00 AM EST [facility] Name Value Range Interpretation Code Description Data Lynette rce(s) Supporting Document(s) HGBA1C 8.3 % N [facility] ID Date Data Source [id number] 01/08/2020 10:00:00 AM EST [facility] Name Value Range Interpretation Code Description Data Lynette rce(s) Supporting Document(s) HCT 39.5 % 36.0-47.0 N [facility] HGB 12.0 g/dL 12.0-15.5 N [facility] MCH 30.4 G/DL pg 32.0-36.5 L [facility] MCHC 25.9 PG % 27.0-33.0 L [facility] PLATELETS 356 10 10*3/mm3 150-450 N [facility] RBC 4.63 10 10*6/mm3 4.00-5.40 N [facility] RDW 13.8 % 11.5-14.5 N [facility] WBC TOTAL 6.9 4.0-10.0 N [facility] ID Date Data Source [id number] 01/06/2020 10:55:33 AM EST [facility] Measurements & CalculationsHeight: 67.50 inches 171.45 cm 5 ft. 7.5 in.Weight: 312 pounds 4 oz. 141.93 kg Body Mass Index (BMI): 48.36BMI Interpretation: Morbidly ObeseBody Surface Area (BSA): 2.46Weight Management Education Done (Nutrition/Physical Activity)Vital SignsTemperature: 98.0F 36.67C oral Pu lse Rate: 88 beats/minuteRespiratory Rate: 14 respirations/minuteBlood Pressure: 128/58 left arm sitting automaticO2 Saturation: 98% room air sittingVital Signs performed by: Amanda Moncada LPN, January 06, 2020 11:00 AMVital Signs performed by: Amanda Moncada LPN, January 06, 2020 11:00 AMInitial Intake Information from: patientRoom #: 14Smoking, Tobacco, Vaping or Smoke Exposure StatusSmoke Status: never smokerTobacco Use: NoDo you vape? NoPassive Smoke Exposure: NoMenstrual HistoryComments: MenopauseHealthcare HistorySince your last office visit...Have you been admitted to the hospital? Yes - SMCHave you been to an emergency room (ER) or urgent care clinic? NoHave you seen another healthcare provider? Yes - Podiatry, NeuroHave you seen a dentist? NoAdditional Comments: pt denied eye exam at this timeIntake performed by: Nellie Lee MA, January 06, 2020 12:15 PMRate Your HealthIn general, would you say your health is? FairPain Asse ssmentAre you currently having any pain which... You would like your provider to address? No Affects your activity level? NoDepression Screening - PHQ- 2Over the last two weeks, have you... Had little interest or pleasure in doing things? Not at all Been feeling down, depressed, or hopeless? Not at all PHQ-2 Score: 0Anxiety Screening - MICHOACANO-2Over the last two weeks, have you been... Feeling nervous, anxious, or on edge? More than half the days Unable to stop or control worrying? More than half the days MICHOACANO-2 Score: 4Food InsecurityWithin the past year...Did you worry whether your food would run out before you got money to buy more? NoWas there a time when the food you bought didn't last and you didn't have money to get more? NoInfectious Disease / Travel ScreeningRecent travel for you, your family, and/or any sexual partners? NoScreening, Brief Intervention, & Referral to Treatment (SBIRT)Pre-Screening Questions How many times have you have 4 or more drinks in a day? 0How many times have you used an illegal drug or used a prescription medication for a non- medical reason? 0Performed by: Amanda Moncada LPN, January 06, 2020 11:07 AMPatient History Medical History:Diabetes, Type 2Huntingtons diseaseSurgical History:- 1978 and 1980Gallbladder- 1981Cyst removal base of spine 2013Family History:FH DepressionFH DiabetesFH MigrainesSocial/Personal History: Chief ComplaintER follow up Room 14History of Present Illness (HPI)59 YO female here for FU from hospital dischargePt was evaluated for complaints of dizziness, lightheadedness, sensationof the room spinning,Pt states feeling better since return from the hospital. Pt states was admitted overnight. Pt states was discharged with home health nurse PT and OT. Pt states also was sent home with a Rolling walker. HPI performed by: Jazmyne VALERO, January 06, 2020 11:53 AMTransitions of Care InboundProblem ReviewProblem List was reviewed and/or updated during this visit.Medication Reconciliation & ReviewMedication List was reviewed and/or updated during this visit, including review of any rlev-gqa-opvumnt medications, herbal therapies, and/or supplements.Allergy ReviewAllergy List was reviewed and/or updated during this visit.Adult Preventive CareProvider Calculated and Reviewed all Clinical Protocols for patient today. Labs/Meds/Other Counseling-Nutrition and Physical Activity:BMI Interpretation: Morbidly Obese (01/06/2020) Counseling: Done (01/06/2020) Physical Activity: Done (01/06/2020)Cancer Screening Mammogram Reviewed:Exclusion from Mammogram protocol. Previous Comments: 2017 (12/04/2018)Today's Comments: refusedPap Smear/HPV TestingReviewed: Patient Refused Pap SmearReview of Systems General: Denies loss of appetite, chills, dizziness, fatigue, fever, continued fever, headache, feeling ill, sweats, night sweats, sleep disturbances, weight loss. Eyes: Denies blurring of vision, double vision, irritation, discharge, vision loss, eye pain, eye swelling, droopy eyelid, sensitivity to light, redness, itching. Ears/Nose/Throat: Denies earache, ear discharge, ringing in ears, decreased hearing, nasal congestion, nosebleeds, runny nose, sore throat, hoarseness, difficulty swallowing, dry pamela th, tooth pain, bleeding gums, swollen glands. Cardiovascular: Denies chest pain, palpitations, feeling faint, trouble breathing w/exertion, SOB upon lying down, SOB at night, peripheral edema, elevated blood pressure, decreased heart rate. Respiratory: Denies cough, difficulty breathing, shortness of breath, excessive sputum, coughing up blood, wheezing, chest pain. Breast: Denies discoloration, tenderness, breast changes, breast lump, nipple discharge. Gastrointestinal: Denies nausea, vomiting, bleeding, burning, itching, irritation, cramps, diarrhea, constipation. Genitourinary: Denies urinary incontinence, pain with urination, burning with urination, urinary frequency, urinary hesitancy, urinary urgency, urinary urgency at night, incomplete emptying, blood in urine. Musculoskeletal: Complains of muscle weakness. Denies back pain, joint pain, leg pain, other pain-see comments, joint swelling, body aches, muscle aches, muscle cramps, stiffness, recent injury. Skin: Denies rash, hives, redness, itching, dryness, nail changes, suspicious lesions, athlete's foot, rash on palms, rash on bottom of feet. Neurologic: Complains of muscle impairment, weakness. Denies numbness/tingling, seizures, slurred speech, feeling faint, tremors, vertigo, paralysis on one side, paralysis on both sides. Psychiatric: Denies depression, anxiety, memory loss, mental disturbance, suicidal ideation, homicidal ideation, hallucinations, paranoia, feeling stressed, hearing voices. Endocrine: Denies cold intolerance, heat intolerance, excessive thirst, excessive hunger, excessive urination, weight loss, weight gain. Heme/Lymphatic: Denies abnormal bruising, bleeding, enlarged lymph nodes. Physical ExamGeneral Appearance: well nourished, well hydrated, no acute distressEyes, External: conjunctivae and lids normal, EOMIRespiratory, Auscultation: clear to auscultation bilaterally; no rales, rhonchi, or wheezesRespiratory, Effort: no intercostal retractions or use of accessory musclesCardiovascular, Auscultation: S1, S2 audible; no murmur, rub, or gallop; RRRPeripheral Circulation: no clubbing, cyanosis, edema, or varicositiesAbdomen: soft, non-tender, no masses, bowel sounds normalGait & Station: uses rolling walker, mild swayingSkin, Inspection: no rashes, lesions, or ulcerationsOrientation: oriented to time, place, and personMood & Affect: no depression, anxiety, or agitationJudgment & Insight: needs assistanceCare Management Plan Transitions of CareInboundRate Your HealthIn general, would you say your health is? 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 Pt states was dx with nevin disease 5 years ago. Instructions: Please continue medication as prescribed. Please continue to follow with your specialist as scheduled. Please continue with good family support.Hypertension (ICD-401.9) (KPA75-L21) Assessment: Instructions: Please continue medication as prescribed. Please continue lifestyle changes to include healthy diet and physical activities. Please try to avoid added sodium in your diet. Please try to avoid processed foods. Please try to maintain adequate pluid intake.HEALTH SCREENING (ICD-V70.0) (HLO46-H51.9) Assessment: Instructions: We have ordered labs for you today. Please return to have labs drawn prior to your next visit. Please fast for 8-10 hours prior.MORBID OBESITY (ICD-278.01) (PMT92-P74.01) Assessment: Instructions: Please start lifestyle changes to include diet and physical activities. please try to avoid processed foods.Assessment not SavedANAL FISTULA (OMV33-O97.3): Patient Instructions/Care Plan: Hammond's disease: Please continue medication as prescribed. Please continue to follow with your specialist as scheduled. Please continue with good family support.Unsteady gait: Please continue use of walker for mobility support.Hypertension: Please continue medication as prescribed. Please continue lifestyle changes to include healthy diet and physical activities. Please try to avoid added sodium in your diet. Please try t o avoid processed foods. Please try to maintain adequate pluid intake.HEALTH SCREENING: We have ordered labs for you today. Please return to have labs drawn prior to your next visit. Please fast for 8-10 hours prior.MORBID OBESITY: Please start lifestyle changes to include diet and physical activities. please try to avoid processed foods. Plan developed in collaboration with patient and/or familyMedications:FREESTYLE LITE TEST IN VITRO STRIPVITAMIN D3 2000 UNIT ORAL TABLETRISPERDAL 0.25 MG ORAL TABLETCOLACE 100 MG ORAL CAPSULELANTUS SOLOSTAR 100 UNIT/ML SUBCUTANEOUS SOLUTION PEN-INJECTORPEN NEEDLES 31G X 6 MMLISINOPRIL 20 MG ORAL TABLETLANCETSMedication Changes:Removed:DIFLUCAN 150 MG ORAL TABLET-take one tablet by mouth x 1 . may repeat in 72 hours.Allergies:No Known Allergies (updated 12/04/2018) Orders:COMP METABOLIC PANEL [CPT-43922] CBC W/DIFF [CPT-36570] HgBA1c [CPT-04615] LIPID PANEL [CPT- 83613] TSH [CPT-96779] T-4 free [CPT-39310] Vitamin D 250H Unspecified [CPT- 57472] URINALYSIS [CPT-96423] Adult - Ofc Vst, EST, Level IV [CPT-64155] Follow- Up Return to clinic: 3-4 weeks for follow up Clinical Visit Summary Completed] Name Value Range Interpretation Code Description Data Lynette rce(s) Supporting Document(s) Procedure Vital Signs ID Date Data Source UNK Name Value Range Interpretation Code Description Data Source(s) Diastolic blood pressure 63 mm[Hg] 63 mm[Hg] eCW1 ([facility]) Systolic blood pressure 134 mm[Hg] 134 mm[Hg] e CW1 ([facility]) Body temperature 97.2 [degF] 97.2 [degF] eCW1 ( [facility]) Respiratory rate 20 /min 20 /min eCW1 ([facility]) Heart rate 83 /min 83 /min eCW1 ([facility]) Body mass index (BMI) [Ratio] 47.16 kg/m2 47.16 kg/m2 eCW1 ([facility]) Body height [in_i] eCW1 ([facility]) Body weight 290 [lb_av] 290 [lb_av] eCW1 ([facility]) Diastolic blood pressure 84 mm[Hg] 84 mm[Hg] eCW1 ([facility]) Systolic blood pressure 151 mm[Hg] 151 mm[Hg] e CW1 ([facility]) Body temperature 95.4 [degF] 95.4 [degF] eCW1 ( [facility]) Respiratory rate 18 /min 18 /min eCW1 ([facility]) Heart rate 74 /min 74 /min eCW1 ([facility]) Body mass index (BMI) [Ratio] 47.16 kg/m2 47.16 kg/m2 W1 ([facility]) Body height [in_i] eCW1 ([facility]) Body weight kg eCW1 ([facility]) Body weight 290 [lb_av] 290 [lb_av] eCW1 ([facility]) Diastolic blood pressure 74 mm[Hg] 74 mm[Hg] eCW1 ([facility]) Systolic blood pressure 169 mm[Hg] 169 mm[Hg] e CW1 ([facility]) Body temperature 97.8 [degF] 97.8 [degF] eCW1 ( [facility]) Respiratory rate 18 /min 18 /min eCW1 ([facility]) Heart rate 89 /min 89 /min eCW1 ([facility]) Body mass index (BMI) [Ratio] 47.16 kg/m2 47.16 kg/m2 eCW1 ([facility]) Body height [in_i] eCW1 ([facility]) Body weight kg eCW1 ([facility]) Body weight 290 [lb_av] 290 [lb_av] eCW1 ([facility]) Diastolic blood pressure mm[Hg] eCW1 ([facility]) Systolic blood pressure 134 mm[Hg] 134 mm[Hg] e CW1 ([facility]) Body temperature 96.3 [degF] 96.3 [degF] eCW1 ( [facility]) Respiratory rate 17 /min 17 /min eCW1 ([facility]) Heart rate 81 /min 81 /min eCW1 ([facility]) Body mass index (BMI) [Ratio] 47.16 kg/m2 47.16 kg/m2 eCW1 ([facility]) Body height [in_i] eCW1 ([facility]) Body weight 290 [lb_av] 290 [lb_av] eCW1 ([facility]) Diastolic blood pressure 57 mm[Hg] 57 mm[Hg] eCW1 ([facility]) Systolic blood pressure 138 mm[Hg] 138 mm[Hg] e CW1 ([facility]) Body temperature 97.5 [degF] 97.5 [degF] eCW1 ( [facility]) Respiratory rate 18 /min 18 /min eCW1 ([facility]) Heart rate 97 /min 97 /min eCW1 ([facility]) Body mass index (BMI) [Ratio] 47.16 kg/m2 47.16 kg/m2 eCW1 ([facility]) Body height [in_i] eCW1 ([facility]) Body weight 290 [lb_av] 290 [lb_av] eCW1 ([facility]) Diastolic blood pressure 60 mm[Hg] 60 mm[Hg] eCW1 ([facility]) Systolic blood pressure 142 mm[Hg] 142 mm[Hg] e CW1 ([facility]) Body temperature 96.8 [degF] 96.8 [degF] eCW1 ( [facility]) Respiratory rate 18 /min 18 /min eCW1 ([facility]) Heart rate 82 /min 82 /min eCW1 ([facility]) Body mass index (BMI) [Ratio] 47.16 kg/m2 47.16 kg/m2 eCW1 ([facility]) Body height [in_i] eCW1 ([facility]) Body weight kg eCW1 ([facility]) Body weight 290 [lb_av] 290 [lb_av] eCW1 ([facility]) Diastolic blood pressure 82 mm[Hg] 82 mm[Hg] eCW1 ([facility]) Systolic blood pressure 147 mm[Hg] 147 mm[Hg] e CW1 ([facility]) Body temperature 95 [degF] 95 [degF] eCW1 ([facility]) Respiratory rate 20 /min 20 /min eCW1 ([facility]) Heart rate 110 /min 110 /min eCW1 ([facility]) Body mass index (BMI) [Ratio] 47.16 kg/m2 47.16 kg/m2 eCW1 ([facility]) Body height [in_i] eCW1 ([facility]) Body weight kg eCW1 ([facility]) Body weight 290 [lb_av] 290 [lb_av] eCW1 ([facility]) Diastolic blood pressure 92 mm[Hg] 92 mm[Hg] eCW1 ([facility]) Systolic blood pressure 189 mm[Hg] 189 mm[Hg] e CW1 ([facility]) Body temperature 96.9 [degF] 96.9 [degF] eCW1 ( [facility]) Respiratory rate 18 /min 18 /min eCW1 ([facility]) Heart rate 84 /min 84 /min eCW1 ([facility]) Body mass index (BMI) [Ratio] 47.16 kg/m2 47.16 kg/m2 eCW1 ([facility]) Body height [in_i] eCW1 ([facility]) Body weight 290 [lb_av] 290 [lb_av] eCW1 ([facility]) Diastolic blood pressure 77 mm[Hg] 77 mm[Hg] eCW1 ([facility]) Systolic blood pressure 145 mm[Hg] 145 mm[Hg] e CW1 ([facility]) Body temperature 97.5 [degF] 97.5 [degF] eCW1 ( [facility]) Respiratory rate 16 /min 16 /min eCW1 ([facility]) Heart rate 80 /min 80 /min eCW1 ([facility] [facility]) Body mass index (BMI) [Ratio] 47.16 kg/m2 47.16 kg/m2 eCW1 ([facility]) Body height [in_i] eCW1 ([facility]) Body weight 290 [lb_av] 290 [lb_av] eCW1 (Formerly [facility], 1928–1983) Diastolic blood pressure 82 mm[Hg] 82 mm[Hg] eCW1 ([facility]) Systolic blood pressure 134 mm[Hg] 134 mm[Hg] e CW1 ([facility]) Body temperature 97.7 [degF] 97.7 [degF] eCW1 ( [facility]) Respiratory rate 18 /min 18 /min eCW1 ([facility]) Heart rate 96 /min 96 /min eCW1 ([facility]) Body mass index (BMI) [Ratio] 47.16 kg/m2 47.16 kg/m2 eCW1 ([facility]) Body height [in_i] eCW1 ([facility]) Body weight kg eCW1 ([facility]) Body weight 290 [lb_av] 290 [lb_av] eCW1 (Formerly [facility], 1928–1983) Body weight 4678.4 [oz_av] 4678.4 [oz_av] ATHEN A ([facility]) Systolic blood pressure 124 mm[Hg] 124 mm[Hg] A THENA ([facility]) Body mass index (BMI) [Ratio] 45.1 kg/m2 45.1 k g/m2 YUNG ([facility]) Body height 67.5 [in_i] 67.5 [in_i] YUNG ([facility]) Diastolic blood pressure 59 mm[Hg] 59 mm[Hg] YUNG ([facility]) Diastolic blood pressure 82 mm[Hg] 82 mm[Hg] eCW1 ([facility]) Systolic blood pressure 144 mm[Hg] 144 mm[Hg] e CW1 ([facility]) Body temperature 96.5 [degF] 96.5 [degF] eCW1 ( [facility]) Respiratory rate 18 /min 18 /min eCW1 ([facility]) Heart rate 86 /min 86 /min eCW1 ([facility]) Body mass index (BMI) [Ratio] 47.16 kg/m2 47.16 kg/m2 eCW1 ([facility]) Body height [in_i] eCW1 ([facility]) Body weight kg eCW1 ([facility]) Body weight 290 [lb_av] 290 [lb_av] eCW1 ([facility], 1928–1983) Body mass index (BMI) [Ratio] 47.16 kg/m2 47.16 kg/m2 eCW1 ([facility]) Body height [in_i] eCW1 ([facility]) Body weight kg eCW1 ([facility]) Body weight 290 [lb_av] 290 [lb_av] eCW1 ([facility], 1928–1983) Diastolic blood pressure 58 mm[Hg] 58 mm[Hg] eCW1 ([facility]) Systolic blood pressure 122 mm[Hg] 122 mm[Hg] e CW1 ([facility]) Body temperature 97.6 [degF] 97.6 [degF] eCW1 ( [facility]) Respiratory rate 18 /min 18 /min eCW1 ([facility]) Heart rate 102 /min 102 /min eCW1 ([facility]) Body temperature 96.8 [degF] 96.8 [degF] eCW1 ( [facility]) Respiratory rate 18 /min 18 /min eCW1 ([facility]) Heart rate 111 /min 111 /min eCW1 ([facility]) Body mass index (BMI) [Ratio] 47.16 kg/m2 47.16 kg/m2 eCW1 ([facility]) Body height [in_i] eCW1 ([facility]) Body weight kg eCW1 ([facility]) Body weight 290 [lb_av] 290 [lb_av] eCW1 ([facility], 1928–1983) Diastolic blood pressure 56 mm[Hg] 56 mm[Hg] eCW1 ([facility]) Systolic blood pressure 118 mm[Hg] 118 mm[Hg] e CW1 ([facility]) Body temperature 96.6 [degF] 96.6 [degF] eCW1 ( [facility]) Respiratory rate 16 /min 16 /min eCW1 ([facility]) Heart rate 71 /min 71 /min eCW1 ([facility]) Body mass index (BMI) [Ratio] 47.16 kg/m2 47.16 kg/m2 eCW1 ([facility]) Body height [in_i] eCW1 ([facility]) Body weight kg eCW1 ([facility]) Body weight 290 [lb_av] 290 [lb_av] eCW1 ([facility], 1928–[facility]) Body weight 4996 [oz_av] 4996 [oz_av] YUNG ([facility]) Systolic blood pressure 128 mm[Hg] 128 mm[Hg] Patsy FAINA ([facility]) Body height 67.5 [in_i] 67.5 [in_i] YUNG ([facility]) Diastolic blood pressure 58 mm[Hg] 58 mm[Hg] YUNG ([facility]) Patient Treatment Plan of Care Planned Activity Planned Date Details Description Data Source (s) doxycycline hyclate 100 MG Oral Tablet 08/21/2020 12:00:00 AM EDT eCW1 ([facility]) silver sulfadiazine 10 MG/ML Topical Cream YUNG ([facility]) Penicillin V Potassium 500 MG Oral Tablet YUNG ([facility]) Metronidazole 500 MG Oral Tablet YUNG ([facility]) Levofloxacin 750 MG Oral Tablet YUNG ([facility]) Erythromycin 333 MG Delayed Release Oral Tablet YUNG ([facility]) doxycycline hyclate 100 MG Oral Tablet YUNG ([facility]) Clindamycin 300 MG Oral Capsule YUNG ([facility]) Cephalexin 500 MG Oral Capsule YUNG ([facility])
[2020-12-23 14:53] LABS: BASO % 0.3 % (0.0-1.0); EOS # 0.1 10^3/uL (0.0-0.5); EOS % 0.5 % (0.0-3.0); HEMATOCRIT 33.4 % (36.0-47.0); HEMOGLOBIN 10.3 g/dl (12.0-15.5); LYMPH % 8.2 % (24.0-44.0); MEAN CORPUSCULAR HEMOGLOBIN 24.6 pg (27.0-33.0); MEAN CORPUSCULAR HGB CONC 30.8 g/dl (32.0-36.5); MEAN CORPUSCULAR VOLUME 79.9 fl (80.0-96.0); MONO # 0.7 10^3/uL (0.0-0.8); MONO % 6.3 % (0.0-5.0); NEUTROPHILS # 9.9 10^3/uL (1.5-8.5); NEUTROPHILS % 84.2 % (36.0-66.0); PLATELET COUNT, AUTOMATED 462 10^3/uL (150-450); RED BLOOD COUNT 4.18 10^6/uL (4.00-5.40); WHITE BLOOD COUNT 11.8 10^3/uL (4.0-10.0)
[2020-12-23 15:19] VITALS: BP 128/72
== END 2020-12-23 15:43 | disposition home or self-care (01) ==
LOC: EDBD 12:13 → M ED 12:13
DX: S91.301A Unspecified open wound, right foot, initial encounter (principal); X58.XXXA Exposure to other specified factors, initial encounter; Y92.9 Unspecified place or not applicable; Y93.9 Activity, unspecified; Y99.9 Unspecified external cause status; E11.9 Type 2 diabetes mellitus without complications; I10 Essential (primary) hypertension; E66.9 Obesity, unspecified; G10 Huntington's disease; Z86.711 Personal history of pulmonary embolism; Z79.82 Long term (current) use of aspirin; Z79.4 Long term (current) use of insulin; Z79.899 Other long term (current) drug therapy; Z88.8 Allergy status to other drugs, medicaments and biological substances

== ENCOUNTER → 2020-12-25 | Outpatient (REF) | payer MEDICARE ==
[~2020-12-25] MED LIST changes: +CLOP75TA2 PO; +DOXY100T PO
== END ==
LOC: M LAB REF 17:02
PROVIDERS: ATTEND Physician Assistant
DX: L97.413 Non-pressure chronic ulcer of right heel and midfoot with necrosis of muscle (principal)

== ENCOUNTER → 2020-12-29 | Outpatient (POV) | payer MEDICARE ==
[~2020-12-29] MED LIST changes: -CLOP75TA2 PO; -DOXY100T PO
--- NOTE | 2020-12-31 12:05 | IRPN ---
[facility] IR Progress Note IR Progress Note DATE: Dec 29, 2020 Patient agreed to [id number]. I spent 5 minutes talking to the patient. FOLLOW-UP: Status post right lower extremity angiography. Patient states access site is healed up without any pain, bruising or swelling. Her right lower angiogram showed good inflow and outflow with 2 vessel runoff to the right foot. There is microvascular disease in the right foot. ON EXAMINATION: No video on patient side. IMPRESSION: 60-year-old diabetic female, doing well status post right lower extremity angiogram. Angiography demonstrated good inflow and outflow but microvascular disease within the right foot. I discussed the importance of good blood pressure and diabetes control with the patient. Patient is on aspirin and Plavix. Thank you for this referral Allergies Coded Allergies: hydrochlorothiazide (Verified Allergy, Mild, 12/10/20) RADHA NAVAS MD Dec 31, 2020 12:05
== END ==
LOC: M TMIRPOV 13:16
PROVIDERS: ATTEND Radiology Diagnostic Radiology
DX: Z48.812 Encounter for surgical aftercare following surgery on the circulatory system (principal); E11.59 Type 2 diabetes mellitus with other circulatory complications; Z79.01 Long term (current) use of anticoagulants; Z79.82 Long term (current) use of aspirin

== ENCOUNTER 2021-01-01 16:14 | Inpatient (IN) | payer MEDICARE ==
[~2021-01-01] VITALS: Ht 165.1 cm; Wt 125.8 kg
[2021-01-01] MEDS ORDERED: NS 1,000 ML IV SCH (16:41)
[2021-01-01] MEDS ORDERED: VANCOMYCIN HCL 2,000 MG in IV FLUID PLACE HOLDER 1 EA IV ONE (16:45)
--- NOTE | 2021-01-01 17:24 | REP ---
INDICATION: SEPSIS/SHOCK. COMPARISON: 12/17/2019, 06/13/2015. TECHNIQUE: AP portable seated chest FINDINGS: The lung leon are adequately inflated. There is no pleural effusion, lateral pleural thickening or apical scarring I see no dense consolidation. Heart not grossly enlarged for AP portable technique. There is no vascular redistribution. Pulmonary arteries are mildly prominent but unchanged the suggesting pulmonary artery hypertension. The aorta is normal for age. Airway is intact. Bones show no focal lesion. IMPRESSION: 1. Prominent quang representing some pulmonary artery hypertension. This may be on the basis of COPD. 2. Heart size normal for this degree of inflation and portable technique. No gross cardiomegaly, edema or effusion. No acute infiltrate. <Electronically signed by Kael Woods > 01/01/21 [id number]
--- NOTE | 2021-01-01 17:33 | REP ---
INDICATION: SEPSIS/SHOCK, diabetic.. COMPARISON: 02/28/2014 TECHNIQUE: Four views. FINDINGS: Evidence for the prior amputation midshaft middle phalanx 3rd toe. Bones are demineralized there are vascular calcifications in arteries throughout the foot and ankle. Plantar and Achilles insertion spurs. There is a prominent soft tissue lesion about the posterior calcaneus subcutaneous air representing a large ulceration. Above the calcaneus on the lateral view there is a 19 mm irregular ossific density that could be avulsion off the posterior calcaneus of the Achilles. There is irregular contour of the posterior calcaneus above the nor Achilles insertional region. Lucency is there and also extends posteriorly inferiorly around the posterior calcaneal spur. Subtalar joints intact. Tarsal articulations intact. Metatarsals show no visible of fracture there are degenerative changes at the MTP and IP joints. Subcutaneous soft tissue edema seen all around the distal lower leg ankle and foot. IMPRESSION: Large decubitus ulcer over the posterior calcaneus with subcutaneous emphysema and soft tissue loss the location. I do see a 1.9 cm calcific appearing density a few cm above the posterior calcaneus that could be avulsion of bone from the posterior calcaneus at the Achilles insertion. Air within the soft tissues around posterior calcaneus extends inferiorly and anteriorly to surround the plantar calcaneal spur. Some degenerative changes at MTP and IP joints. 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 Diffuse vascular calcifications about the ankle and hind foot into the forefoot. Diffuse soft tissue swelling. <Electronically signed by Kael Woods > 01/01/21 [id number]
[2021-01-01] MEDS ORDERED: DOXY100T PO (17:37)
[2021-01-01] MEDS ORDERED: CLOP75TA2 PO (17:37)
[2021-01-01 17:50] LABS: BASO % 0.4 % (0.0-1.0); EOS # 0.2 10^3/uL (0.0-0.5); EOS % 1.9 % (0.0-3.0); HEMATOCRIT 30.2 % (36.0-47.0); LYMPH # 1.8 10^3/uL (1.5-5.0); LYMPH % 18.2 % (24.0-44.0); MEAN CORPUSCULAR HEMOGLOBIN 23.8 pg (27.0-33.0); MEAN CORPUSCULAR HGB CONC 29.8 g/dl (32.0-36.5); MEAN CORPUSCULAR VOLUME 79.9 fl (80.0-96.0); MONO # 0.8 10^3/uL (0.0-0.8); NEUTROPHILS # 6.8 10^3/uL (1.5-8.5); NEUTROPHILS % 70.8 % (36.0-66.0); PLATELET COUNT, AUTOMATED 513 10^3/uL (150-450); RED BLOOD COUNT 3.78 10^6/uL (4.00-5.40); WHITE BLOOD COUNT 9.6 10^3/uL (4.0-10.0)
--- OUTSIDE RECORDS SUMMARY | 2021-01-01 17:56 | CCD ---
Author Author [facility] Address Unknown Phone Unavailable Care Team Providers Care Customer Sales Representative Name Role Phone Lito, A Jazmyne ARMATURE INSPECTOR Unavailable Unavailable Lito, A Jazmyne ARMATURE INSPECTOR Unavailable Unavailable Lito, A Jazmyne ARMATURE INSPECTOR Unavailable Unavailable Lito, A Jazmyne ARMATURE INSPECTOR Unavailable Unavailable Lito, A Jazmyne ARMATURE INSPECTOR Unavailable Unavailable Lito, A Jazmyne ARMATURE INSPECTOR Unavailable Unavailable Lito, A Jazmyne ARMATURE INSPECTOR Unavailable Unavailable Lito, A Jazmyne ARMATURE INSPECTOR Unavailable Unavailable Lito, A Jazmyne ARMATURE INSPECTOR Unavailable Unavailable Lito, A Jazmyne ARMATURE INSPECTOR Unavailable Unavailable Lito, A Jazmyne ARMATURE INSPECTOR Unavailable Unavailable Lito, A Jazmyne ARMATURE INSPECTOR Unavailable Unavailable Lito, A Jazmyne ARMATURE INSPECTOR Unavailable Unavailable Lito, A Jazmyne ARMATURE INSPECTOR Unavailable Unavailable Lito, A Jazmyne ARMATURE INSPECTOR Unavailable Unavailable Lito, A Jazmyne ARMATURE INSPECTOR Unavailable Unavailable Lito, A Jazmyne ARMATURE INSPECTOR Unavailable Unavailable Lito, A Jazmyne ARMATURE INSPECTOR Unavailable Unavailable Lito, A Jazmyne ARMATURE INSPECTOR Unavailable Unavailable Lito, A Jazmyne ARMATURE INSPECTOR Unavailable Unavailable Lito, A Jazmyne ARMATURE INSPECTOR Unavailable Unavailable Lito, A Jazmyne ARMATURE INSPECTOR Unavailable Unavailable Lito, A Jazmyne ARMATURE INSPECTOR Unavailable Unavailable Lito, A Jazmyne ARMATURE INSPECTOR Unavailable Unavailable Lito, A Jazmyne ARMATURE INSPECTOR Unavailable Unavailable Lito, A Jazmyne ARMATURE INSPECTOR Unavailable Unavailable Lito, A Jazmyne ARMATURE INSPECTOR Unavailable Unavailable Lito, A Jazmyne ARMATURE INSPECTOR Unavailable Unavailable Vasquez, C Sarai PA Unavailable [...] C Sarai PA Unavailable Unavailable Lito, Jazmyne ARMATURE INSPECTOR ARMATURE INSPECTOR Unavailable Unavailable Lito, A Jazmyne ARMATURE INSPECTOR Unavailable Unavailable Lito, A Jazmyne ARMATURE INSPECTOR Unavailable Unavailable Lito, A Jazmyne ARMATURE INSPECTOR Unavailable Unavailable Lito, A Jazmyne ARMATURE INSPECTOR Unavailable Unavailable Lito, A Jazmyne ARMATURE INSPECTOR Unavailable Unavailable Lito, A Jazmyne ARMATURE INSPECTOR Unavailable Unavailable Lito, A Jazmyne ARMATURE INSPECTOR Unavailable Unavailable Lito, A Jazmyne ARMATURE INSPECTOR Unavailable Unavailable Lito, A Jazmyne ARMATURE INSPECTOR Unavailable Unavailable Lito, A Jazmyne ARMATURE INSPECTOR Unavailable Unavailable Lito, A Jazmyne ARMATURE INSPECTOR Unavailable Unavailable Lito, A Jazmyne ARMATURE INSPECTOR Unavailable Unavailable Lito, A Jazmyne ARMATURE INSPECTOR Unavailable Unavailable Lito, A Jazmyne ARMATURE INSPECTOR Unavailable Unavailable Lito, A Jazmyne ARMATURE INSPECTOR Unavailable Unavailable Lito, A Jazmyne ARMATURE INSPECTOR Unavailable Unavailable Lito, A Jazmyne ARMATURE INSPECTOR Unavailable Unavailable Lito, A Jazmyne ARMATURE INSPECTOR Unavailable Unavailable Lito, A Jazmyne ARMATURE INSPECTOR Unavailable Unavailable Lito, A Jazmyne ARMATURE INSPECTOR Unavailable Unavailable Lito, A Jazmyen ARMATURE INSPECTOR Unavailable Unavailable Lito, A Jazmyne ARMATURE INSPECTOR Unavailable Unavailable Lito, A Jazmyne ARMATURE INSPECTOR Unavailable Unavailable Lito, A Jazmyne ARMATURE INSPECTOR Unavailable Unavailable Lito, A Jazmyne ARMATURE INSPECTOR Unavailable Unavailable Lito, A Jazmyne ARMATURE INSPECTOR Unavailable Unavailable Lito, A Jazmyne ARMATURE INSPECTOR Unavailable Unavailable Lito, A Jazmyne ARMATURE INSPECTOR Unavailable Unavailable Re-disclosure Warning The records that [...] is protected by Article 27-F of the [facility] Public Health law. If you continue you may have access to information: Regarding HIV / AIDS; Provided by facilities licensed or operated by the [facility] Office of Mental Health; or Provided by the [facility] Office for People With Developmental Disabilities. If such information is present, then the following [facility] mandated warning applies: This information [...] law may result in a fine or nursing home sentence or both. A general authorization for the release of medical or other information is NOT sufficient authorization for further disc losure. Allergies and Adverse Reactions Type Description Substance Reaction Status Data Source(s ) Allergy to substance Allergy to substance Allergy to substance YUNG ([facility]) Family History Family Member Name Family Member Gender Family Member Status Date o f Status Description Data Source(s) Unknown Male Problem MEDENT ([facility] ) Encounters Encounter Providers Location Date Indications Data Source(s ) Outpatient [address] [facility] [id number] 12/25/2020 12:00:00 AM EST eCW1 ([facility]) (WND STRTCH) Stretcher Required Patients [address] [place] [address] 12/15/2020 12:00:00 AM EST eCW1 ([facility]) Unknown [address] [facility] [address] 12/14/2020 12:00:00 AM EST eCW1 ([facility]) (WND STRTCH) Stretcher Required Patients [address] [place] [address] 12/04/2020 12:00:00 AM EST eCW1 ([facility]) ([id number]) For Template Landon [address] [place] [address] 11/27/2020 12:00:00 AM EST eCW1 ([facility]) ([id number]) For Template [place]andon [address] [place] [address] 11/20/2020 12:00:00 AM EST eCW1 ([facility]) Unknown [address] [facility] [address] 11/18/2020 12:00:00 AM EST eCW1 ([facility]) Unknown [address] [facility] [address] 11/16/2020 12:00:00 AM EST eCW1 ([facility]) Outpatient [address] [facility] [address] 10/30/2020 12:00:00 AM EST eCW1 ([facility]) ([id number]) For Template Landon [facility] [place] [address] 10/23/2020 12:00:00 AM EST eCW1 ([facility]) ([id number]) For Template Landon [address] [place] [address] 10/16/2020 12:00:00 AM EST eCW1 ([facility]) Unknown [address] [facility] [address] 10/16/2020 12:00:00 AM EST eCW1 ([facility]) Unknown [address] [facility] [address] 10/02/2020 12:00:00 AM EST eCW1 ([facility]) Unknown [address] [facility] [address] 10/02/2020 12:00:00 AM EST eCW1 ([facility]) Outpatient [address] [facility] [place] [address] 09/25/2020 12:00:00 AM EST eCW1 ([facility]) ([id number]) For Template Landon [address] [place] [address] 09/18/2020 12:00:00 AM EST eCW1 ([facility]) ([id number]) For Template Landon [address] [place] [address] 09/11/2020 12:00:00 AM EDT eCW1 ([facility]) Unknown [address] [facility] [address] 09/10/2020 12:00:00 AM EDT eCW1 ([facility]) Outpatient Attender: MARYLU VALERO 09/07/2020 11:30:02 A M EDT [facility] Unknown [address] [place] [address] 09/07/2020 12:00:00 AM EDT eCW1 ([facility]) MARYLU Padilla-BC: [address] [place] [address], Ph. Attender: Jazmyne VALERO [facility] Medical 09/07/2020 12:00:00 AM EDT YUNG ([facility]) ([id number]) For Template Landon [address] [place] [address] 09/04/2020 12:00:00 AM EDT eCW1 ([facility]) Outpatient Attender: MARYLU VALERO 08/31/2020 09:14:02 P M EDT [facility] Outpatient Attender: Jazmyne TORREZ 08/31/2020 09:1 4:02 PM EDT [facility] Outpatient Attender: MARYLU TORREZ 08/31/2020 09:13:00 P M EDT [facility] Outpatient Attender: Jazmyne VALERO 08/31/2020 09:1 3:00 PM EDT [facility] Outpatient Attender: Jazmyne TORREZ 08/31/2020 08:1 7:02 PM EDT [facility] Outpatient Attender: MARYLU TORREZ 08/31/2020 09:29:01 A M EDT [facility] ([id number]) For Template [place]andon [address] [place] [address] 08/28/2020 12:00:00 AM EDT eCW1 ([facility]) ([id number]) For Template Landon [address] [place] [address] 08/21/2020 12:00:00 AM EDT eCW1 ([facility]) Outpatient Attender: MARYLU VALERO FP 08/20/2020 10:31:01 A M EDT [facility] Outpatient [address] [facility] [address] 08/14/2020 12:00:00 AM EDT eCW1 ([facility]) Unknown [address] [facility] [address] 08/14/2020 12:00:00 AM EDT eCW1 ([facility]) Outpatient Attender: MARYLU TORREZ 08/12/2020 06:10:02 A M EDT [facility] Outpatient Attender: Jazmyne VALERO FP 08/12/2020 06:1 0:01 AM EDT [facility] Unknown [address] [facility] [address] 08/12/2020 12:00:00 AM EDT eCW1 ([facility]) Outpatient Attender: MARYLU TORREZ 08/07/2020 12:02:12 A M EDT [facility] Outpatient Attender: Jazmyne TORREZ 08/06/2020 04:4 6:01 PM EDT [facility] Outpatient Attender: MARYLU VALERO FP 08/06/2020 04:46:00 P M EDT [facility] Outpatient Attender: MARYLU TORREZ 08/06/2020 02:42:00 P M EDT [facility] Outpatient Attender: MARYLU TORREZ 08/06/2020 02:40:00 P M EDT [facility] Outpatient Attender: MARYLU Morse ARMATURE INSPECTOR FP 08/06/2020 02:39:00 P M EDT [facility] Outpatient Attender: MARYLU DYERP FP 08/05/2020 12:02:16 A M EDT [facility] Outpatient Attender: MARYLU Morse ARMATURE INSPECTOR FP 08/04/2020 11:35:01 A M EDT [facility] Outpatient Attender: MARYLU Morse ARMATURE INSPECTOR FP 08/01/2020 12:02:05 A M EDT [facility] Outpatient Attender: Jazmyne Morse ARMATURE INSPECTOR FP 07/31/2020 11:2 6:01 AM EDT [facility] Outpatient Attender: MARYLU DYERP FP 07/31/2020 09:54:00 A M EDT [facility] Outpatient Attender: MARYLU Morse ARMATURE INSPECTOR FP 07/31/2020 09:50:01 A M EDT [facility] Outpatient Attender: Jazmyne DYERP FP 06/04/2020 11:4 4:00 PM EDT [facility] Outpatient Attender: MARYLU Morse ARMATURE INSPECTOR FP 06/04/2020 11:43:59 P M EDT [facility] Outpatient Attender: MARYLU DYERP FP 04/21/2020 07:37:54 P M EDT [facility] Outpatient Attender: Jazmyne DYERP FP 04/12/2020 05:2 6:01 PM EDT [facility] Outpatient Attender: MARYLU Morse ARMATURE INSPECTOR FP 03/26/2020 11:15:00 A M EDT [facility] Outpatient Attender: Jazmyne DYERP FP 03/25/2020 10:5 9:01 PM EDT [facility] Outpatient Attender: MARYLU DYERP FP 02/18/2020 11:49:01 A M EDT [facility] Outpatient Attender: MARYLU DYERP FP 02/14/2020 10:43:00 A M EDT [facility] Outpatient Attender: MARYLU DYERP FP 02/07/2020 08:01:20 P M EDT [facility] Outpatient Attender: MARYLU DYERP FP 02/01/2020 09:42:02 P M EDT [facility] Outpatient Attender: Jazmyne DYERP FP 02/01/2020 09:4 2:01 PM EDT [facility] Outpatient Attender: Jazmyne DYERP FP 01/09/2020 07:5 5:00 PM [facility] Outpatient Attender: Jazmyne DYERP FP 01/09/2020 01:4 9:02 PM [facility] Outpatient Attender: MARYLU Morse ARMATURE INSPECTOR FP 01/09/2020 01:47:01 P [facility] Outpatient Attender: Jazmyne DYERP FP 01/09/2020 01:4 7:00 PM [facility] Outpatient Attender: MARYLU DYERP FP 01/08/2020 09:29:01 A M [facility] Outpatient Attender: Jazmyne DYERP FP 01/06/2020 01:5 1:02 PM [facility] Outpatient Attender: MARYLU Morse ARMATURE INSPECTOR FP 01/06/2020 01:04:00 P [facility] Outpatient Attender: MARYLU DYERP FP 01/06/2020 01:03:00 P [facility] Outpatient Attender: MARYLU Morse ARMATURE INSPECTOR FP 01/06/2020 01:02:01 P [facility] Outpatient Attender: MARYLU Morse ARMATURE INSPECTOR FP 01/06/2020 12:46:00 P [facility] Outpatient Attender: MARYLU Morse ARMATURE INSPECTOR FP 01/06/2020 12:10:03 P [facility] Outpatient Referrer: Sarai MONTERROSO 12/25/2019 03:28:00 PM [facility] Outpatient Attender: Jazmyne DYERP FP 12/06/2019 09:3 2:16 AM [facility] Outpatient Attender: MARYLU Morse ARMATURE INSPECTOR FP 11/29/2019 11:21:01 A M [facility] Outpatient Attender: MARYLU Morse ARMATURE INSPECTOR FP 11/04/2019 09:01:02 P [facility] Immunizations Vaccine Date Status Description Data Source(s) influenza, recombinant, quadrIvalent,injectable, prese rvative free 08/21/2020 01:11:00 PM EDT completed eCW1 ([facility]) influenza, recombinant, quadrIvalent,injectable, prese rvative free 08/21/2020 01:11:00 PM EDT completed eCW1 ([facility]) influenza, recombinant, quadrIvalent,injectable, prese rvative free 08/21/2020 01:11:00 PM EDT completed eCW1 ([facility]) influenza, recombinant, quadrIvalent,injectable, prese rvative free 08/21/2020 01:11:00 PM EDT completed eCW1 ([facility]) influenza, recombinant, quadrIvalent,injectable, prese rvative free 08/21/2020 01:11:00 PM EDT completed eCW1 ([facility]) influenza, recombinant, quadrIvalent,injectable, prese rvative free 08/21/2020 01:11:00 PM EDT completed eCW1 ([facility]) influenza, recombinant, quadrIvalent,injectable, prese rvative free 08/21/2020 01:11:00 PM EDT completed eCW1 ([facility]) influenza, recombinant, quadrIvalent,injectable, prese rvative free 08/21/2020 01:11:00 PM EDT completed eCW1 ([facility]) influenza, recombinant, quadrIvalent,injectable, prese rvative free 08/21/2020 01:11:00 PM EDT completed eCW1 ([facility]) influenza, recombinant, quadrIvalent,injectable, prese rvative free 08/21/2020 01:11:00 PM EDT completed eCW1 ([facility]) influenza, recombinant, quadrIvalent,injectable, prese rvative free 08/21/2020 01:11:00 PM EDT completed eCW1 ([facility]) influenza, recombinant, quadrIvalent,injectable, prese rvative free 08/21/2020 01:11:00 PM EDT completed eCW1 ([facility]) influenza, recombinant, quadrIvalent,injectable, prese rvative free 08/21/2020 01:11:00 PM EDT completed eCW1 ([facility]) influenza, recombinant, quadrIvalent,injectable, prese rvative free 08/21/2020 01:11:00 PM EDT completed eCW1 ([facility]) influenza, recombinant, quadrIvalent,injectable, prese rvative free 08/21/2020 01:11:00 PM EDT completed eCW1 ([facility]) influenza, recombinant, quadrIvalent,injectable, prese rvative free 08/21/2020 01:11:00 PM EDT completed eCW1 ([facility]) influenza, recombinant, quadrIvalent,injectable, prese rvative free 08/21/2020 01:11:00 PM EDT completed eCW1 ([facility]) influenza, recombinant, quadrIvalent,injectable, prese rvative free 08/21/2020 01:11:00 PM EDT completed eCW1 ([facility]) influenza, recombinant, quadrIvalent,injectable, prese rvative free 08/21/2020 01:11:00 PM EDT completed eCW1 ([facility]) influenza, recombinant, quadrIvalent,injectable, prese rvative free 08/21/2020 01:11:00 PM EDT completed eCW1 ([facility]) influenza, recombinant, quadrIvalent,injectable, prese rvative free 08/21/2020 01:11:00 PM EDT completed eCW1 ([facility]) influenza, recombinant, quadrIvalent,injectable, prese rvative free 08/21/2020 01:11:00 PM EDT completed eCW1 ([facility]) influenza, recombinant, quadrIvalent,injectable, prese rvative free 08/21/2020 01:11:00 PM EDT completed eCW1 ([facility]) influenza, recombinant, quadrIvalent,injectable, prese rvative free 08/21/2020 01:11:00 PM EDT completed eCW1 ([facility]) Medications Medication Brand Name Start Date Product Form Dose Route Admi nistrative Instructions Pharmacy Instructions Status Indications Reaction Description Data Source(s) doxycycline hyclate 100 MG Oral Tablet DOXYCYCLINE HYCLATE 0 12/25/2020 12:00:00 AM EST tablet 20 TAKE ONE TABLET BY MOUTH TWI CE A DAY FOR 10 DAYS TAKE ONE TABLET BY MOUTH TWICE A DAY FOR 10 DAYS SOLD: 12/25/2020 [facility] 0.25 mg 11/16/2020 12:00:00 AM EST tablet 30 TAKE ONE TABLET BY MOUTH AT BEDTIME TAKE ONE TABLET BY MOUTH AT BEDTIME SOLD: 11/16/2020 [facility] 0.25 mg 11/16/2020 12:00:00 AM EST tablet 30 TAKE ONE TABLET BY MOUTH AT BEDTIME TAKE ONE TABLET BY MOUTH AT BEDTIME SOLD: 12/24/2020 [facility] 100 unit/mL (3 mL) 11/15/2020 12:00:00 AM EST insulin pen 30 INJECT 50 UNITS SUBCUTANEOUSLY EVERY MORNING AND 30 UNITS EVERY EVENING MAXIMUM DAILY DOSE = 80 UNITS INJECT 50 UNITS SUBCUTANEOUSLY EVERY MOR ISABELLA AND 30 UNITS EVERY EVENING MAXIMUM DAILY DOSE = 80 UNITS SOLD: 11/15/2020 [facility] 75 mg 09/17/2020 12:00:00 AM EST tablet 90 TAKE ONE TABLET BY MOUTH EVERY DAY TAKE ONE TABLET BY MOUTH EVERY DAY SOLD: 12/24/2020 [facility] 81 mg 09/17/2020 12:00:00 AM [...] {tablet} active Doxycycline Hyclate 100 MG eCW1 ([facility]) 0.25 mg 08/07/2020 12:00:00 AM EDT tablet [...] DAY DIRECTED THREE TIMES A DAY SOLD: 12/24/2020 [facility] 31 gauge x 1/4" 07/31/2020 [...] TWICE A DAY FOR 10 DAYS [facility] Erythromycin 333 MG Delayed Release Oral Tablet erythromycin 333 mg tablet,delayed release erythromycin 333 mg tablet,delayed release completed erythromycin 333 MG Delayed Rele ase Oral Tablet YUNG ([facility]) Penicillin V Potassium 500 MG Oral Tablet penicillin V potassium 500 mg tablet penicillin V potassium 500 mg tablet c ompleted penicillin V potassium 500 MG Oral Tablet YUNG ([facility]) doxycycline hyclate 100 MG Oral Tablet doxycycline hyc late 100 mg tablet doxycycline hyclate 100 mg tablet comp leted doxycycline hyclate 100 MG Oral Tablet YUNG ([facility]) Metronidazole 500 MG Oral Tablet metronidazole 500 mg tablet metronidazole 500 mg tablet completed metronidazol e 500 MG Oral Tablet CUTLER ([facility]) Clindamycin 300 MG Oral Capsule clindamycin HCl 300 mg capsule clindamycin HCl 300 mg capsule completed clindam ycin 300 MG Oral Capsule CUTLER ([facility]) silver sulfadiazine 10 MG/ML Topical Cre am silver sulfadiazine 1 % topical cream silver sulfadiazine 1 % topical cream completed silver sulfadiazine 10 MG/ML Topical Cream YUNG ([facility]) Cephalexin 500 MG Oral Capsule cephalexin 500 mg capsu le cephalexin 500 mg capsule completed cephalexin 500 MG Oral Capsule YUNG ([facility]) Levofloxacin 750 MG Oral Tablet levofloxacin 750 mg ta blet levofloxacin 750 mg tablet completed levofloxacin 75 0 MG Oral Tablet YUNG ([facility]) Insurance Providers Payer name Policy type / Coverage type Policy ID Covered democrat ID Covered democrat's relationship to landon Policy Landon Plan Information [facility] MCRHMO [id number] SP [id number] MEDICARE COMPLETE [id number] SP [id number] MEDICARE COMPLETE [id number] SP [id number] MEDICARE [id number] SP [id number] A MEDICARE [id number] SP [id number] [facility] Secure Horizons P [id number] S [id number] Medicare S [id number] S [id number] A [facility] [id number] SP [id number] MEDICARE BLUE PPO [id number] SP [id number] SELF PAY ONLY [id number] SP [id number] MEDICARE COMPLETE-UHC O [id number] S [id number] [facility] MCRO [id number] SP [id number] UN COMMUNITY PLAN [id number] SP [id number] [facility] Secure Horizons P [id number] S [id number] Excell[employer] BCBS S [id number] S [id number] [id number] MEDICARE COMPLETE-UHC O [id number] S [id number] MEDICARE COMPLETE [id number] SP [id number] Medicare P [id number] S [id number] A Bshmo [id number],[id number],Yoy,[id number],[id number] Medigap Part B [id number] Self [id number] MVP (pr) Commercial [id number] Self [id number] Blue Shield MCR Advantage Commercial [id number] Self [id number] [employer] BCYO P [id number] S [id number] [id number] [facility] O [id number] S [id number] SELF PAY ONLY UNAVAILABLE SP UNAV AILABLE [facility] Physicians P [id number] S [id number] Self Pay P [id number] S [id number] [facility] Physicians P [id number] S [id number] [facility] [id number] SP [id number] [facility] [id number] SP [id number] [facility] Physicians P [id number] S [id number] [facility] PHY [id number] SP [id number] [facility] COMM HMO [id number] S [id number] [facility] O [id number] S [id number] [facility] PHY [id number] SP [id number] SELF PAY UNAVAILABLE UNAVAILA BLE Sliding Fee Scale S [id number] S [id number] [facility] P [id number] S [id number] P UNAVAILABLE UNAVAILA BLE [facility] Physicians P [id number] S [id number] [facility] Physicians P [id number] S [id number] [facility] Physicians P [id number] S [id number] [employer]BS [place] PPO 302/307 [id number] SP [id number] Problems, Conditions, and Diagnoses Code Display Name Description Problem Type Effective Dates Data Source(s) L97.422 [id number] Non-pressure chronic ulcer of left heel and midfoot with fat layer exposed Problem 09/25/2020 12:00:00 AM EST eCW1 ([facility]) L97.411 [id number] Non-pressure chronic ulcer of right 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 Problem 08/28/2020 12:00:00 AM EDT eCW1 ([facility]) [id number] Clinical finding Clinical Finding Problem 08/27/2020 04 :30:27 PM EDT YUNG ([facility]) L97.524 [id number] Non-pressure chronic ulcer of other part of left foot with necrosis of bone Problem 08/14/2020 12:00:00 AM EDT eCW1 ([facility]) L97.512 [id number] Non-pressure chronic ulcer of other part of right foot with fat layer exposed Problem 08/13/2020 12:00:00 AM EDT eCW1 ([facility]) E11.621 [id number] Type 2 diabetes mellitus with foot ulcer Problem 08/13/2020 12:00:00 AM EDT [facility] ([facility]) Z89.422 Acquired absence of other left toe(s) Amputated toe of left foot 08/12/2020 06:09:35 AM EDT [facility] V05.9 Vaccination Vaccination 08/12/2020 06:09:35 AM EDT [facility] 781.2 Unsteady gait Unsteady gait 01/06/2020 12:08:58 PM EST [facility] [id number] Clinical history and observation finding s Clinical History and Observation Findings Problem 01/06/2020 12:00:00 AM EST YUNG ([facility]) Surgeries/Procedures Procedure Description Date Indications Data Source(s) FINE NEEDLE ASPIRATION W/O IMAGING GUIDANCE 12/25/2020 12:00:00 AM EST eCW1 ([facility]) Medication: 2% Lidocaine intradermal 12/25/2020 12:00: 00 AM EST eCW1 ([facility]) Medication: 2% Lidocaine intradermal 12/15/2020 12:00: 00 AM EST eCW1 ([facility]) FINE NEEDLE ASPIRATION W/O IMAGING GUIDANCE 12/15/2020 12:00:00 AM EST eCW1 ([facility]) FINE NEEDLE ASPIRATION W/O IMAGING GUIDANCE 12/04/2020 12:00:00 AM EST eCW1 ([facility]) FINE NEEDLE ASPIRATION W/O IMAGING GUIDANCE 11/27/2020 12:00:00 AM EST eCW1 ([facility]) FINE NEEDLE ASPIRATION W/O IMAGING GUIDANCE 11/20/2020 12:00:00 AM EST eCW1 ([facility]) FINE NEEDLE ASPIRATION W/O IMAGING GUIDANCE 10/30/2020 12:00:00 AM EST eCW1 ([facility]) FINE NEEDLE ASPIRATION W/O IMAGING GUIDANCE 10/23/2020 12:00:00 AM EST eCW1 ([facility]) FINE NEEDLE ASPIRATION W/O IMAGING GUIDANCE 10/16/2020 12:00:00 AM EST eCW1 ([facility]) FINE NEEDLE ASPIRATION W/O IMAGING GUIDANCE 09/25/2020 12:00:00 AM EST eCW1 ([facility]) FINE NEEDLE ASPIRATION W/O IMAGING GUIDANCE 09/18/2020 12:00:00 AM EST eCW1 ([facility]) FINE NEEDLE ASPIRATION W/O IMAGING GUIDANCE 09/11/2020 12:00:00 AM EDT eCW1 ([facility]) FINE NEEDLE ASPIRATION W/O IMAGING GUIDANCE 09/04/2020 12:00:00 AM EDT eCW1 ([facility]) FINE NEEDLE ASPIRATION W/O IMAGING GUIDANCE 08/28/2020 12:00:00 AM EDT eCW1 ([facility]) FINE NEEDLE ASPIRATION W/O IMAGING GUIDANCE 08/21/2020 12:00:00 AM EDT eCW1 ([facility]) Results ID Date Data Source [id number] 08/31/2020 10:40:33 AM EDT [facility] In-House Blood TestsDate/Time Colle cted: August 31, 2020 9:35 AMTest Result Reference Range Normal ValueComments: Blood drawn in office from left AC, tolerated wellNicole Henrry [place], August 31, 2020 10:41 AMAssessment & Plan Orders:[id number] Vst-Est Level I [CPT-60480] 08446 - Venipuncture [CPT-39700] Name Value Range Interpretation Code Description Data Lynette rce(s) Supporting Document(s) ID Date Data Source [id number] 08/31/2020 09:35:00 AM EDT [facility] Name Value Range Interpretation Code Description Data Lynette rce(s) Supporting Document(s) VIT D25 TOT 17.7 ng/mL 30.0-100.0 L [facility] BG FASTING 225 mg/dL 70-100 H [facility] T4, FREE 1.57 ng/dL 0.76-1.46 H [facility] TSH 2.090 microintl units/mL 0.358-3.740 N [facility] ID Date Data Source [id number] 08/31/2020 09:35:00 AM EDT [facility] Name Value Range Interpretation Code Description Data Lynette rce(s) Supporting Document(s) HCT 36.3 % 36.0-47.0 N [facility] HGB 10.9 g/dL 12.0-15.5 L [facility] MCH 30.0 G/DL pg 32.0-36.[address] [facility] MCHC 24.3 PG % 27.0-33.0 L [facility] PLATELETS 541 10 10*3/mm3 150-450 H [facility] RBC 4.48 10 10*6/mm3 4.00-5.40 N [facility] RDW 15.1 % 11.5-14.5 H [facility] WBC TOTAL 10.6 4.0-10.0 H [facility] ID Date Data Source [id number] 08/31/2020 09:35:00 AM EDT [facility] Name Value Range Interpretation Code Description Data Lynette rce(s) Supporting Document(s) HGBA1C 8.0 % N [facility] ID Date Data Source PREALBUMIN 08/28/2020 04:05:44 AM EDT eCW1 ([facility]) Name Value Range Interpretation Code Description Data Lynette rce(s) Supporting Document(s) 10.4 PREALBUMIN eCW1 ([facility]) ID Date Data Source C REACTIVE PROTEIN QUANTITATIV (At [facility]) 08/28/2020 04:05 :37 AM EDT eCW1 ([facility]) Name Value Range Interpretation Code Description Data Lynette rce(s) Supporting Document(s) 8.26 C REACTIVE PROTEIN QUANTITATIV eCW1 ([facility]) ID Date Data Source Comprehensive Metabolic Profile (CMP) 08/28/2020 04:05:31 AM EDT eCW1 ([facility]) Name Value Range Interpretation Code Description Data Lynette rce(s) Supporting Document(s) 16 BLOOD UREA NITROGEN eCW1 ([facility]) 179 GLUCOSE, FASTING eCW1 ([facility]) 0.82 CREATININE FOR GFR eCW1 ([facility]) 4.2 POTASSIUM SERUM eCW1 ([facility]) 101 CHLORIDE LEVEL eCW1 ([facility]) > 60.0 GLOMERULAR FILTRATION RATE eCW 1 ([facility]) 135 SODIUM LEVEL eCW1 ([facility]) 9 ALT/SGPT eCW1 ([facility]) 28 CARBON DIOXIDE LEVEL eCW1 ([facility]) 9.2 CALCIUM LEVEL eCW1 ([facility]) 5 AST/SGOT eCW1 ([facility]) 0.7 BILIRUBIN,TOTAL eCW1 ([facility]) 94 ALKALINE PHOSPHATASE eCW1 ([facility]) 7.1 TOTAL PROTEIN eCW1 ([facility]) 0.7 ALBUMIN/GLOBULIN RATIO eCW1 ([facility]) 2.9 ALBUMIN eCW1 ([facility]) ID Date Data Source [id number] 08/28/2020 04:05:20 AM EDT eCW1 ([facility]) Name Value Range Interpretation Code Description Data Lynette rce(s) Supporting Document(s) Hemoglobin A1c/Hemoglobin.total in Blood 7.8 HEMOGLOBIN A1c eCW1 ([facility]) ID Date Data Source ERYTHROCYTE SEDIMENTATION RATE 08/28/2020 04:05:13 AM EDT eC W1 ([facility]) Name Value Range Interpretation Code Description Data Lynette rce(s) Supporting Document(s) 65 ERYTHROCYTE SEDIMENTATION RATE eCW1 ([facility]) ID Date Data Source CBC with Differential 08/28/2020 04:05:03 AM EDT eCW1 ([facility]) Name Value Range Interpretation Code Description Data Lynette rce(s) Supporting Document(s) 8.1 WHITE BLOOD COUNT eCW1 ([facility]) 33.5 HEMATOCRIT eCW1 ([facility]) 80.5 MEAN CORPUSCULAR VOLUME eCW1 ( [facility]) 4.16 RED BLOOD COUNT eCW1 ([facility]) 10.0 HEMOGLOBIN eCW1 ([facility]) 15.5 RED CELL DISTRIBUTION WIDTH eC W1 ([facility]) 24.0 MEAN CORPUSCULAR HEMOGLOBIN eC W1 ([facility]) 29.9 MEAN CORPUSCULAR HGB CONC eCW1 ([facility]) 365 PLATELET COUNT, AUTOMATED eCW1 ([facility]) 15.0 LYMPH % eCW1 ([facility]) 73.6 NEUTROPHILS % eCW1 ([facility]) 7.7 MONO % eCW1 ([facility]) 2.5 EOS % eCW1 ([facility]) 0.7 BASO % eCW1 ([facility]) 1.2 LYMPH # eCW1 ([facility]) 5.9 NEUTROPHILS # eCW1 ([facility]) 0.1 BASO # eCW1 ([facility]) 0.2 EOS # eCW1 ([facility]) 0.6 MONO # eCW1 ([facility]) ID Date Data Source WOUND CULTURE 08/21/2020 04:06:50 AM EDT eCW1 ([facility]) Name Value Range Interpretation Code Description Data Lynette rce(s) Supporting Document(s) WOUND CULTURE eCW1 ([facility]) ID Date Data Source Pathology Request For Service 08/21/2020 04:06:02 AM EDT eCW 1 ([facility]) Name Value Range Interpretation Code Description Data Lynette rce(s) Supporting Document(s) SKELETAL eCW1 ([facility]) ID Date Data Source [id number] 08/06/2020 03:17:19 PM EDT [facility] Measurements & CalculationsHeight: 67.50 inches 171.45 [...] been admitted to the hospital? Yes - [facility] surgeryHospital admission date reported today: 05/19/2020Have you [...] her daughter today. Pt [facility]. Pt states sees Dr Nicholas at the wound center every other week. Pt states no longer sees Dr Escoto anymore Pt states that they had a disagreement about a bill. Pt states overwhelmed with recent left foot amputation. left partial ampu tation.. Pt states was prescribed Resperaldal for her Humphrey shakes. Pt agree to neurology referral. Pt states will go as far as [place] if not able to get in locally. [...] injuries from falls. 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 following podiatry and wound care. unable to view , covered with dressing. Instructions: Please continue to folllow with toe puller and outreach specialist as scheduled. 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 W will contact [facility] to set this up. We will refill your Resperdal until you are established with a new Neurologist.Hypertension (ICD-401.9) (YXK00-B25) Assessment: Instructions: Your Blood Pressure is at goal today. Please continue medication as prescribed. Please continue lifestyle changes to include healthy diet and physical activities. Please try to avoid added sodium in your diet. Please try to avoid processed foods. Please try to maintain adequate Fluid intake.Unsteady gait (ICD-781.2) (DMN06-A73.81) Assessment: Pt would like to have a [...] fax script to [facility].MORBID OBESITY (ICD- 278.01) (LEI14-D34.01) Assessment: Instructions: Please continue lifestyle changes to include healthy diet and physical activities. please try to avoid processed foods.Pt try to limit sugars, carbohydrates, sodium and fats in your diet.Patient Instructions/Care Plan: Humphrey's disease: We have made a referral for you today today. W will contact [facility] to set this up. We will refill [...] left foot: Please continue to folllow with toe puller and outreach specialist as scheduled. Please report any increased [...] ORAL RISPERDAL 0.25 MG ORAL TABLET Qty: [id number] Refills: 30[Tablet] To: RISPERIDONE 0.25 MG ORAL TABLET-take one tablet by mouth daily at bedtime. Qty: 30[Tablet] Refills: 2Allergies:No Known Allergies (updated 12/04/2018) Orders:Neurology Consult [CPT-83020] COMP METABOLIC PANEL [CPT-05001] CBC W/DIFF [CPT-41540] HgBA1c [CPT-82807] LIPID PANEL [CPT-45405] TSH [CPT-21636] T-4 free [CPT-85092] Vitamin D 250H Unspecified [CPT-97536] URINALYSIS [CPT-88516] Urine Culture [CPT-13388] FluLaval Quadrivalent, preservative free [CPT-68983] 32098 - Immo Admin (over 19 yrs), 1st Vaccine [CPT-60235] Adult - Ofc Vst, EST, Level IV [CPT-13992] Follow- Up Return to clinic: 3-4 weeks for follow up Clinical Visit Summary CompletedMedications:WHEEL CHAIR Use for assistance with Mobility #1 x 0 En tered and Authorized by: Jazmyne VALERO Method used: Printed then faxed to ... [facility] (retail) [address] [place] [address] Fax: Indications: UNSTEADY GAIT;MORBID OBESITY;NEVIN'S DISEASE;AMPUTATED TOE OF LEFT FOOT RxID: [id number] 0.25 MG ORAL TABLET (RISPERIDONE) take one tablet by mouth daily at bedtime. #30[Tablet] x 2 Route:ORAL Entered and Authorized by: Jazmyne VALERO Method used: Electronically to [facility] (retail) [address] [place] [address] Ph: Note to Pharmacy: Route: ORAL; Indications: NEVIN'S DISEASE RxID: [id number] Questionnaire1) Does the patient have a long-term [...] / Lot# / Exp.Date: [employer] / [id number] 05/12/2021mt. Given / Route / Site: 0.5 mL / IM / Left DeltoidNDC / CVX: [id number] / [id number] Date: 08/06/2020 17:16VFC Eligibility: Not VFC EligibleVIS Date: 06/27/2019VIS Given / VIS Given On: Yes / 08/06/2020Comments: Administered by: Amanda Moncada LPN Name Value Range Interpretation Code Description Data Lynette rce(s) Supporting Document(s) ID Date Data Source [id number] 07/30/2020 12:00:00 AM EDT [facility] Name Value Range Interpretation Code Description Data Lynette rce(s) Supporting Document(s) HCT 33.0 % 36.0-47.0 L [facility] HGB 10.1 g/dL 12.0-15.5 L [facility] MCH 30.6 G/DL pg 32.0-36.[address] [facility] MCHC 23.9 PG % 27.0-33.0 L [facility] PLATELETS 390 10 10*3/mm3 150-450 N [facility] RBC 4.22 10 10*6/mm3 4.00-5.40 N [facility] RDW 14.9 % 11.5-14.5 H [facility] WBC TOTAL 10.7 4.0-10.0 H [facility] ID Date Data Source [id number] 06/02/2020 03:31:00 PM EDT [facility] Name Value Range Interpretation Code Description Data Lynette rce(s) Supporting Document(s) BG FASTING 288 mg/dL 70-100 H [facility] CRP 4.82 mg/dL 0.00-0.30 H [facility] ID Date Data Source [id number] 06/02/2020 03:31:00 PM EDT [facility] Name Value Range Interpretation Code Description Data Lynette rce(s) Supporting Document(s) ESR 76 mm/hr 0-30 H [facility] HCT 31.1 % 36.0-47.0 L [facility] HGB 9.7 g/dL 12.0-15.5 L [facility] MCH 31.2 G/DL pg 32.0-36.5 L [facility] MCHC 24.7 PG % 27.0-33.0 L [facility] PLATELETS 404 10 10*3/mm3 150-450 N [facility] RBC 3.93 10 10*6/mm3 4.00-5.40 L [facility] RDW 14.1 % 11.5-14.5 N [facility] WBC TOTAL 8.8 4.0-10.0 N [facility] ID Date Data Source [id number] 01/08/2020 10:03:35 AM EST [facility] In-House Blood TestsDate/Time Colle cted: January 08, 2020 10:03 AMDate/Time Received: January 08, 2020 10:03 AMTest Result Reference Range Normal ValueComments: blood draw done in office done in the right ac tolerated well Sumit Coleman MA, January 08, 2020 10:03 AMAssessment & Plan Orders:[id number] Vst-Est Level I [CPT-14166] 56038 - Venipuncture [CPT- 79556] Name Value Range Interpretation Code Description Data Lynette rce(s) Supporting Document(s) ID Date Data Source [id number] 01/08/2020 10:00:00 AM [facility] Name Value Range Interpretation Code Description Data Lynette rce(s) Supporting Document(s) VIT D25 TOT 19.3 ng/mL 30.0-100.0 L [facility] BG FASTING 182 mg/dL 70-100 H [facility] T4, FREE 1.31 ng/dL 0.76-1.46 N [facility] TSH 2.170 microintl units/mL 0.358-3.740 N [facility] ID Date Data Source [id number] 01/08/2020 10:00:00 AM [facility] Name Value Range Interpretation Code Description Data Lynette rce(s) Supporting Document(s) HGBA1C 8.3 % N [facility] ID Date Data Source [id number] 01/08/2020 10:00:00 AM [facility] Name Value Range Interpretation Code Description Data Lynette rce(s) Supporting Document(s) HCT 39.5 % 36.0-47.0 [facility] HGB 12.0 g/dL 12.0-15.5 [facility] MCH 30.4 G/DL pg 32.0-36.[address] [facility] MCHC 25.9 PG % 27.0-33.0 L [facility] PLATELETS 356 10 10*3/mm3 150-450 [facility] RBC 4.63 10 10*6/mm3 4.00-5.40 [facility] RDW 13.8 % 11.5-14.5 [facility] WBC TOTAL 6.9 4.0-10.0 [facility] ID Date Data Source [id number] 01/06/2020 10:55:33 AM [facility] Measurements & CalculationsHeight: 67.50 inches 171.45 [...] during this visit, including review of any wged-rlk-ewnvvnv medications, herbal therapies, and/or supplements.Allergy ReviewAllergy List [...] & Plan Problems:Added: Unsteady gait (ICD- 781.2) (GDV54-E81.81) Assessment: Instructions: Please continue use of walker for mobility support.Assessed: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 Pt states was dx with nevin disease 5 years ago. Instructions: Please continue medication as prescribed. Please continue to follow with your specialist as scheduled. Please continue with good family support.Hypertension (ICD-401.9) (AWI15-H61) Assessment: Instructions: Please continue medication as prescribed. Please continue lifestyle changes to include healthy diet and physical activities. Please try to avoid added sodium in your diet. Please try to avoid processed foods. Please try to maintain adequate pluid intake.HEALTH SCREENING (ICD-V70.0) (VLG86-Z66.9) Assessment: Instructions: We have ordered labs for you today. Please return to have labs drawn prior to your next visit. Please fast for 8-10 hours prior.MORBID OBESITY (ICD-278.01) (KGK43-V42.01) Assessment: Instructions: Please start lifestyle changes to include diet and physical activities. please try to avoid processed foods.Assessment not SavedANAL FISTULA (ZOD75-W48.3): Patient Instructions/Care Plan: Humphrey's disease: Please continue medication as prescribed. Please [...] Known Allergies (updated 12/04/2018) Orders:COMP METABOLIC PANEL [CPT-96754] CBC W/DIFF [CPT-78970] HgBA1c [CPT-98141] LIPID PANEL [CPT- 27073] TSH [CPT-41698] T-4 free [CPT-24139] Vitamin D 250H Unspecified [CPT- 77378] URINALYSIS [CPT-86075] Adult - Ofc Vst, EST, Level IV [CPT-80393] Follow- Up Return to clinic: 3-4 weeks for follow up Clinical Visit Summary Completed] Name Value Range Interpretation Code Description Data Lynette rce(s) Supporting Document(s) Procedure Vital Signs ID Date Data Source UNK Name Value Range Interpretation Code Description Data Source(s) Diastolic blood pressure 85 mm[Hg] 85 mm[Hg] eCW1 ([facility]) Systolic blood pressure 124 mm[Hg] 124 mm[Hg] e CW1 ([facility]) Body temperature 96.5 [degF] 96.5 [degF] eCW1 ( [facility]) Respiratory rate 18 /min 18 /min eCW1 ([facility]) Heart rate 86 /min 86 /min eCW1 ([facility]) Body mass index (BMI) [Ratio] 47.16 kg/m2 47.16 kg/m2 eCW1 ([facility]) Body height [in_i] eCW1 ([facility]) Body weight kg eCW1 ([facility]) Body weight 290 [lb_av] 290 [lb_av] eCW1 ([facility]) Diastolic blood pressure 63 mm[Hg] 63 mm[Hg] eCW1 ([facility]) Systolic blood pressure 134 mm[Hg] 134 mm[Hg] e CW1 ([facility]) Body temperature 97.2 [degF] 97.2 [degF] eCW1 ( [facility]) Respiratory rate 20 /min 20 /min eCW1 ([facility]) Heart rate 83 /min 83 /min eCW1 ([facility]) Body mass index (BMI) [Ratio] 47.16 kg/m2 47.16 kg/m2 W1 ([facility]) Body height [in_i] eCW1 ([facility]) Body weight 290 [lb_av] 290 [lb_av] eCW1 ([facility]) Diastolic blood pressure 84 mm[Hg] 84 mm[Hg] eCW1 ([facility]) Systolic blood pressure 151 mm[Hg] 151 mm[Hg] e CW1 ([facility]) Body temperature 95.4 [degF] 95.4 [degF] eCW1 ( [facility]) Respiratory rate 18 /min 18 /min eCW1 ([facility]) Heart rate 74 /min 74 /min eCW1 ([facility]) Body mass index (BMI) [Ratio] 47.16 kg/m2 47.16 kg/m2 eCW1 ([facility]) Body height [in_i] eCW1 ([facility]) Body weight kg eCW1 ([facility]) Body weight 290 [lb_av] 290 [lb_av] eCW1 ([facility]) Diastolic blood pressure 74 mm[Hg] 74 mm[Hg] eCW1 ([facility]) Systolic blood pressure 169 mm[Hg] 169 mm[Hg] e CW1 ([facility]) Body temperature 97.8 [degF] 97.8 [degF] eCW1 ( [facility]) Respiratory rate 18 /min 18 /min eCW1 ([facility]) Heart rate 89 /min 89 /min eCW1 ([facility]) Body mass index (BMI) [Ratio] 47.16 kg/m2 47.16 kg/m2 W1 ([facility]) Body height [in_i] eCW1 ([facility]) Body weight kg eCW1 ([facility]) Body weight 290 [lb_av] 290 [lb_av] eCW1 ([facility]) Diastolic blood pressure mm[Hg] eCW1 ([facility]) Systolic blood pressure 134 mm[Hg] 134 mm[Hg] e CW1 ([facility]) Body temperature 96.3 [degF] 96.3 [degF] eCW1 ( [facility]) Respiratory rate 17 /min 17 /min eCW1 ([facility]) Heart rate 81 /min 81 /min eCW1 ([facility]) Body mass index (BMI) [Ratio] 47.16 kg/m2 47.16 kg/m2 eCW1 ([facility]) Body height [in_i] eCW1 ([facility]) Body weight 290 [lb_av] 290 [lb_av] eCW1 ([facility]) Diastolic blood pressure 57 mm[Hg] 57 mm[Hg] eCW1 ([facility]) Systolic blood pressure 138 mm[Hg] 138 mm[Hg] e CW1 ([facility]) Body temperature 97.5 [degF] 97.5 [degF] eCW1 ( [facility]) Respiratory rate 18 /min 18 /min eCW1 ([facility]) Heart rate 97 /min 97 /min eCW1 ([facility]) Body mass index (BMI) [Ratio] 47.16 kg/m2 47.16 kg/m2 eCW1 ([facility]) Body height [in_i] eCW1 ([facility]) Body weight 290 [lb_av] 290 [lb_av] eCW1 ([facility]) Diastolic blood pressure 60 mm[Hg] 60 mm[Hg] eCW1 ([facility]) Systolic blood pressure 142 mm[Hg] 142 mm[Hg] e CW1 ([facility]) Body temperature 96.8 [degF] 96.8 [degF] eCW1 ( [facility]) Respiratory rate 18 /min 18 /min eCW1 ([facility]) Heart rate 82 /min 82 /min eCW1 ([facility]) Body mass index (BMI) [Ratio] 47.16 kg/m2 47.16 kg/m2 eCW1 ([facility]) Body height [in_i] eCW1 ([facility]) Body weight kg eCW1 ([facility]) Body weight 290 [lb_av] 290 [lb_av] eCW1 ([facility]) Diastolic blood pressure 82 mm[Hg] 82 mm[Hg] eCW1 ([facility]) Systolic blood pressure 147 mm[Hg] 147 mm[Hg] e CW1 ([facility]) Body temperature 95 [degF] 95 [degF] eCW1 ([facility]) Respiratory rate 20 /min 20 /min eCW1 ([facility]) Heart rate 110 /min 110 /min eCW1 ([facility]) Body mass index (BMI) [Ratio] 47.16 kg/m2 47.16 kg/m2 eCW1 ([facility]) Body height [in_i] eCW1 ([facility]) Body weight kg eCW1 ([facility]) Body weight 290 [lb_av] 290 [lb_av] eCW1 ([facility]) Diastolic blood pressure 92 mm[Hg] 92 mm[Hg] eCW1 ([facility]) Systolic blood pressure 189 mm[Hg] 189 mm[Hg] e CW1 ([facility]) Body temperature 96.9 [degF] 96.9 [degF] eCW1 ( [facility]) Respiratory rate 18 /min 18 /min eCW1 ([facility]) Heart rate 84 /min 84 /min eCW1 ([facility]) Body mass index (BMI) [Ratio] 47.16 kg/m2 47.16 kg/m2 eCW1 ([facility]) Body height [in_i] eCW1 ([facility]) Body weight 290 [lb_av] 290 [lb_av] eCW1 ([facility]) Diastolic blood pressure 77 mm[Hg] 77 mm[Hg] eCW1 ([facility]) Systolic blood pressure 145 mm[Hg] 145 mm[Hg] e CW1 ([facility]) Body temperature 97.5 [degF] 97.5 [degF] eCW1 ( [facility]) Respiratory rate 16 /min 16 /min eCW1 ([facility]) Heart rate 80 /min 80 /min eCW1 ([facility]) Body mass index (BMI) [Ratio] 47.16 kg/m2 47.16 kg/m2 eCW1 ([facility]) Body height [in_i] eCW1 ([facility]) Body weight 290 [lb_av] 290 [lb_av] eCW1 ([facility]) Diastolic blood pressure 82 mm[Hg] 82 mm[Hg] eCW1 ([facility]) Systolic blood pressure 134 mm[Hg] 134 mm[Hg] e CW1 ([facility]) Body temperature 97.7 [degF] 97.7 [degF] eCW1 ( [facility]) Respiratory rate 18 /min 18 /min eCW1 ([facility]) Heart rate 96 /min 96 /min eCW1 ([facility]) Body mass index (BMI) [Ratio] 47.16 kg/m2 47.16 kg/m2 eCW1 ([facility]) Body height [in_i] eCW1 ([facility]) Body weight kg eCW1 ([facility]) Body weight 290 [lb_av] 290 [lb_av] eCW1 ([facility]) Body weight 4678.4 [oz_av] 4678.4 [oz_av] ATHEN A ([facility]) Systolic blood pressure 124 mm[Hg] 124 mm[Hg] A THENA ([facility]) Body mass index (BMI) [Ratio] 45.1 kg/m2 45.1 k g/m2 YUNG ([facility]) Body height 67.5 [in_i] 67.5 [in_i] YUNG ([facility]) Diastolic blood pressure 59 mm[Hg] 59 mm[Hg] YUNG ([facility]) Diastolic blood pressure 82 mm[Hg] 82 mm[Hg] eCW1 ([facility]) Systolic blood pressure 144 mm[Hg] 144 mm[Hg] e CW1 ([facility]) Body temperature 96.5 [degF] 96.5 [degF] eCW1 ( [facility]) Respiratory rate 18 /min 18 /min eCW1 ([facility]) Heart rate 86 /min 86 /min eCW1 ([facility]) Body mass index (BMI) [Ratio] 47.16 kg/m2 47.16 kg/m2 eCW1 ([facility]) Body height [in_i] eCW1 ([facility]) Body weight kg eCW1 ([facility]) Body weight 290 [lb_av] 290 [lb_av] eCW1 ([facility]) Body mass index (BMI) [Ratio] 47.16 kg/m2 47.16 kg/m2 eCW1 ([facility]) Body height [in_i] eCW1 ([facility]) Body weight kg eCW1 ([facility]) Body weight 290 [lb_av] 290 [lb_av] eCW1 ([facility]) Diastolic blood pressure 58 mm[Hg] 58 mm[Hg] eCW1 ([facility]) Systolic blood pressure 122 mm[Hg] 122 mm[Hg] e CW1 ([facility]) Body temperature 97.6 [degF] 97.6 [degF] eCW1 ( [facility]) Respiratory rate 18 /min 18 /min eCW1 ([facility]) Heart rate 102 /min 102 /min eCW1 ([facility]) Body temperature 96.8 [degF] 96.8 [degF] eCW1 ( [facility]) Respiratory rate 18 /min 18 /min eCW1 ([facility]) Heart rate 111 /min 111 /min eCW1 ([facility]) Body mass index (BMI) [Ratio] 47.16 kg/m2 47.16 kg/m2 eCW1 ([facility]) Body height [in_i] eCW1 ([facility]) Body weight kg eCW1 ([facility]) Body weight 290 [lb_av] 290 [lb_av] eCW1 ([facility]) Diastolic blood pressure 56 mm[Hg] 56 mm[Hg] eCW1 ([facility]) Systolic blood pressure 118 mm[Hg] 118 mm[Hg] e CW1 ([facility]) Body temperature 96.6 [degF] 96.6 [degF] eCW1 ( [facility]) Respiratory rate 16 /min 16 /min eCW1 ([facility]) Heart rate 71 /min 71 /min eCW1 ([facility]) Body mass index (BMI) [Ratio] 47.16 kg/m2 47.16 kg/m2 eCW1 ([facility]) Body height [in_i] eCW1 ([facility]) Body weight kg eCW1 ([facility]) Body weight 290 [lb_av] 290 [lb_av] eCW1 ([facility]) Body weight 4996 [oz_av] 4996 [oz_av] YUNG ([facility]) Systolic blood pressure 128 mm[Hg] 128 mm[Hg] A THENA ([facility]) Body height 67.5 [in_i] 67.5 [in_i] YUNG ([facility]) Diastolic blood pressure 58 mm[Hg] 58 mm[Hg] YUNG ([facility]) Patient Treatment Plan of Care Planned Activity Planned Date Details Description Data Source (s) doxycycline hyclate 100 MG Oral Tablet 08/21/2020 12:00:00 AM EDT eCW1 ([facility]) silver sulfadiazine 10 MG/ML Topical Cream YUNG ([facility]) Penicillin V Potassium 500 MG Oral Tablet YUNG ([facility]) Metronidazole 500 MG Oral Tablet YUNG ([facility]) Levofloxacin 750 MG Oral Tablet YUNG ([facility]) Erythromycin 333 MG Delayed Release Oral Tablet YUNG ([facility]) doxycycline hyclate 100 MG Oral Tablet YUNG ([facility]) [facility] Cephalexin 500 MG Oral Capsule YUNG ([facility])
[2021-01-01 18:03] LABS: INR 1.11; PROTHROMBIN TIME 14.5 SECONDS (12.5-14.3)
[2021-01-01 18:04] LABS: PARTIAL THROMBOPLASTIN TIME 31.1 SECONDS (24.2-38.5)
[2021-01-01 18:18] LABS: ALBUMIN 2.4 GM/DL (3.2-5.2); ALT/SGPT 15 U/L (12-78); AMYLASE 50 U/L (25-115); BILIRUBIN,DIRECT 0.1 MG/DL (0.0-0.2); BILIRUBIN,TOTAL 0.3 MG/DL (0.2-1.0); BLOOD UREA NITROGEN 15 MG/DL (7-18); C REACTIVE PROTEIN QUANTITATIV 7.21 MG/DL (0.00-0.30); CALCIUM LEVEL 8.8 MG/DL (8.8-10.2); CARBON DIOXIDE LEVEL 28 MEQ/L (21-32); CHLORIDE LEVEL 100 MEQ/L (98-107); CK-MB VALUE MASS 1.1 NG/ML (<3.6); CPK CREATINE PHOSPHOKINASE 31 U/L (26-192); CREATININE FOR GFR 0.91 MG/DL (0.55-1.30); GLOMERULAR FILTRATION RATE > 60.0 (>45); GLUCOSE, FASTING 180 MG/DL (70-100); MB/CK RELATIVE INDEX 3.55 (< OR =4); POTASSIUM SERUM 4.2 MEQ/L (3.5-5.1); SODIUM LEVEL 134 MEQ/L (136-145); TOTAL PROTEIN 6.6 GM/DL (6.4-8.2); TROPONIN I < 0.02 NG/ML (< 0.10)
[2021-01-01] MEDS ORDERED: VANCOMYCIN HCL 1,000 MG, VIAL MATE ADAPTER 1 EACH in D5W 250 ML IV ONE ×2 (19:00→20:00)
--- NOTE | 2021-01-01 20:27 | HPEPDOC ---
General Date of Admission Jan 01, 2021 Date of Service: Jan 01, 2021 Chief Complaint The patient is a 60-year-old female admitted with a reason for visit of Cellulitis. 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 She tells me that she generally becoming more bed bound. She has an ulcer on the back of her right heel which started a few months ago. She has her own float boot and reports compliance. She has been seeing Pauly Burger PA-C who has been debriding her ulcer. She was last seen by her on 12/25/2020 and started her on doxycycline for cellulitis around that area. Today, she was not feeling well. She had fever and chills at home and felt weaker than normal. In the ED, there was erythema coming up from her right foot to the bottom third of her right leg. X-ray of left foot demonstrates large decubitus ulcer over the posterior calcaneus. There is subcutaneous emphysema and soft tissue loss at the location. Workup was significant for a CRP of 7.21. Patient will be admitted for cellulitis of the right foot that failed outpatient treatment. Home Medications Scheduled Aspirin (Aspirin EC) 81 Mg Tablet.dr, 81 MG PO Q2D, (Reported) Clopidogrel Bisulfate (Clopidogrel) 75 Mg Tablet, 75 MG PO DAILY, (Reported) Docusate Sodium (Colace) 100 Mg Capsule, 100 MG PO QHS, (Reported) Doxycycline Hyclate (Doxycycline Hyclate) 100 Mg Tablet, 100 MG PO BID, (Reported) FILLED 12/25/20 FOR 10 DAYS Insulin Glargine,Hum.rec.anlog (Lantus Solostar) 100 Unit/1 Ml Insuln.pen, 45 UNITS SC BID, (Reported) Lisinopril (Lisinopril) 20 Mg Tab, 20 MG PO QHS, (Reported) Risperidone (Risperidone) 0.25 Mg Tablet, 0.25 MG PO QHS, (Reported) Allergies Coded Allergies: hydrochlorothiazide (Verified Allergy, Mild, 12/10/20) Past Medical History Medical History 1. Hypertension 2. Diabetes mellitus 3. Mixed hyperlipidemia 4. Pulmonary embolus 5. Blanco's disease Surgical History 1. 2. Gallbladder 3. Right breast biopsy which was benign 4. Left lower extremity angioplasty Family History Father: No known medical history Mother: Blanco's disease Social History * Smoker: Denies Alcohol: Denies Drugs: denies A-FIB/CHADSVASC A-FIB History Current/History of A-Fib/PAF?: No Review of Systems Constitutional: Reports: Chills, Fever, Malaise, Weakness Eyes: Denies: Vision change ENT: Denies: Sore Throat Skin: Reports: Rash (right leg) Pulmonary: Denies: Dyspnea, Cough Cardiovascular: Denies: Chest Pain Gastrointestinal: Denies: Nausea, Abdominal Pain, Diarrhea Genitourinary: Denies: Dysuria Hematologic: Reports: Bruising Musculoskeletal: Reports: Foot Pain (right foot) Psych: Reports: Anxiety, Depression Physical Examination General Exam: Positive: Alert, Cooperative Eye Exam: Positive: EOMI; Negative: Sclera icteric ENT Exam: Positive: Atraumatic Neck Exam: Positive: Supple Chest Exam: Positive: Clear to auscultation; Negative: Rales, Rhonchi, Wheezing Heart Exam: Positive: Rate Normal, Regular Rhythm Abdomen Exam: Positive: Normal bowel sounds, Soft; Negative: Tenderness Extremity Exam: Positive: Other (right leg cellulitis located in the lower third) Neuro Exam: Positive: Cranial Nerves 3-12 NL Psych Exam: Positive: Mental status NL, Mood NL; Negative: Memory Intact Vital Signs Vital Signs Date Time Temp Pulse Resp B/P (MAP) Pulse Ox O2 Delivery O2 Flow Rate FiO2 01/01/21 16:36 97.1 85 16 199/72 (114) 100 Room Air Laboratory Data Labs 24H Laboratory Tests 2 01/01/21 17:36: Immature Granulocyte % (Auto) 0.7, Neutrophils (%) (Auto) 70.8H, Lymphocytes (%) (Auto) 18.2L, Monocytes (%) (Auto) 8.0, Eosinophils (%) (Auto) 1.9, Basophils (%) (Auto) 0.4, Neutrophils # (Auto) 6.8, Lymphocytes # (Auto) 1.8, Monocytes # (Auto) 0.8, Eosinophils # (Auto) 0.2, Basophils # (Auto) 0.0, Nucleated Red Blood Cells % (auto) 0.0, Prothrombin Time 14.5H, Prothromb Time International Ratio 1.11, Activated Partial Thromboplast Time 31.1, Anion Gap 6L, Glomerular Filtration Rate > 60.0, Lactic Acid Level 1.0, Calcium Level 8.8, Total Bilirubin 0.3, Direct Bilirubin 0.1, Aspartate Amino Transf (AST/SGOT) 4L, Alanine Aminotransferase (ALT/SGPT) 15, Alkaline Phosphatase 94, Total Creatine Kinase 31, Creatine Kinase MB 1.1, Creatine Kinase MB Relative Index 3.55, Troponin I < 0.02, C-Reactive Protein, Quantitative 7.21H, Total Protein 6.6, Albumin 2.4L, Albumin/Globulin Ratio 0.6L, Amylase Level 50 CBC/BMP Laboratory Tests 01/01/21 17:36 Microbiology Microbiology 01/01/21 Respiratory Virus Panel (PCR) ([facility]) - Final, Complete 01/01/21 Blood Culture, Received Pending 01/01/21 Blood Culture, Received Pending Assessment/Plan Mrs. 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 Patient failed outpatient doxycycline. We'll broaden spectrum with Zosyn and Vanco as it is a diabetic foot infection. Otherwise, we'll order MRI to look for osteomyelitis. Plan / VTE VTE Prophylaxis Ordered?: Yes Plan Plan 1. Cellulitis of the right foot Secondary to decubitus ulcer on right heel Failed outpatient doxycycline Since diabetic foot infection, we'll broaden spectrum to vancomycin and Zosyn Pending MRI 2. Diabetes mellitus Last HbA1c was 8 in August 2020 We'll repeat HbA1c Continue basal insulin Start sliding scale Insulin and carbohydrate consistent diet 3. Hypertension Continue lisinopril 4. Peripheral arterial disease Continue aspirin and Plavix 5. DVT prophylaxis Friedanox JEANNE OGDEN DO Jan 01, 2021 20:27
[2021-01-01] MEDS ORDERED: GLUCAGON INJ 1MG VIAL SC PRN (20:30)
[2021-01-01] MEDS ORDERED: DEXTROSE 50% 50 ML SYRINGE IV PRN (20:30)
[2021-01-01] MEDS ORDERED: GLUCOSE 4GM CHEW TABLET PO PRN (20:30)
--- OUTSIDE RECORDS SUMMARY | 2021-01-01 20:31 | CCD ---
Author Author [facility] Address Unknown Phone Unavailable Care Team Providers Care Hvac Service Tech Name Role Phone Lito, A Jazmyne NECKTIE TURNER Unavailable Unavailable Lito, A Jazmyne NECKTIE TURNER Unavailable Unavailable Lito, A Jazmyne NECKTIE TURNER Unavailable Unavailable Lito, A Jazmyne NECKTIE TURNER Unavailable Unavailable Lito, A Jazmyne NECKTIE TURNER Unavailable Unavailable Lito, A Jazmyne NECKTIE TURNER Unavailable Unavailable Lito, A Jazmyne NECKTIE TURNER Unavailable Unavailable Lito, A Jazmyne NECKTIE TURNER Unavailable Unavailable Lito, A Jazmyne NECKTIE TURNER Unavailable Unavailable Lito, A Jazmyne NECKTIE TURNER Unavailable Unavailable Lito, A Jazmyne NECKTIE TURNER Unavailable Unavailable Lito, A Jazmyne NECKTIE TURNER Unavailable Unavailable Lito, A Jazmyne NECKTIE TURNER Unavailable Unavailable Lito, A Jazmyne NECKTIE TURNER Unavailable Unavailable Lito, A Jazmyne NECKTIE TURNER Unavailable Unavailable Lito, A Jazmyne NECKTIE TURNER Unavailable Unavailable Lito, A Jazmyne NECKTIE TURNER Unavailable Unavailable Lito, A Jazmyne NECKTIE TURNER Unavailable Unavailable Lito, A Jazmyne NECKTIE TURNER Unavailable Unavailable Lito, A Jazmyne NECKTIE TURNER Unavailable Unavailable Lito, A Jazmyne NECKTIE TURNER Unavailable Unavailable Lito, A Jazmyne NECKTIE TURNER Unavailable Unavailable Lito, A Jazmyne NECKTIE TURNER Unavailable Unavailable Lito, A Jazmyne NECKTIE TURNER Unavailable Unavailable Lito, A Jazmyne NECKTIE TURNER Unavailable Unavailable Lito, A Jazmyne NECKTIE TURNER Unavailable Unavailable Lito, A Jazmyne NECKTIE TURNER Unavailable Unavailable Lito, A Jazmyne NECKTIE TURNER Unavailable Unavailable Vasquez, C Sarai PA Unavailable [...] C Sarai PA Unavailable Unavailable Vasquez, C Sraai PA Unavailable Unavailable Vasquez, C Sarai PA [...] C Sarai PA Unavailable Unavailable Lito, Jazmyne NECKTIE TURNER NECKTIE TURNER Unavailable Unavailable Lito, A Jazmyne NECKTIE TURNER Unavailable Unavailable Lito, A Jazmyne NECKTIE TURNER Unavailable Unavailable Lito, A Jazmyne NECKTIE TURNER Unavailable Unavailable Lito, A Jazmyne NECKTIE TURNER Unavailable Unavailable Lito, A Jazmyne NECKTIE TURNER Unavailable Unavailable Lito, A Jazmyne NECKTIE TURNER Unavailable Unavailable Lito, A Jazmyne NECKTIE TURNER Unavailable Unavailable Lito, A Jazmyne NECKTIE TURNER Unavailable Unavailable Lito, A Jazmyne NECKTIE TURNER Unavailable Unavailable Lito, A Jazmyne NECKTIE TURNER Unavailable Unavailable Lito, A Jazmyne NECKTIE TURNER Unavailable Unavailable Lito, A Jazmyne NECKTIE TURNER Unavailable Unavailable Lito, A Jazmyne NECKTIE TURNER Unavailable Unavailable Lito, A Jazmyne NECKTIE TURNER Unavailable Unavailable Lito, A Jazmyne NECKTIE TURNER Unavailable Unavailable Lito, A Jazmyne NECKTIE TURNER Unavailable Unavailable Lito, A Jazmyne NECKTIE TURNER Unavailable Unavailable Lito, A Jazmyne NECKTIE TURNER Unavailable Unavailable Lito, A Jazmyne NECKTIE TURNER Unavailable Unavailable Lito, A Jazmyne NECKTIE TURNER Unavailable Unavailable Lito, A Jazmyne NECKTIE TURNER Unavailable Unavailable Lito, A Jazmyne NECKTIE TURNER Unavailable Unavailable Lito, A Jazmyne NECKTIE TURNER Unavailable Unavailable Lito, A Jazmyne NECKTIE TURNER Unavailable Unavailable Lito, A Jazmyne NECKTIE TURNER Unavailable Unavailable Lito, A Jazmyne NECKTIE TURNER Unavailable Unavailable Lito, A Jazmyne NECKTIE TURNER Unavailable Unavailable Lito, A Jazmyne NECKTIE TURNER Unavailable Unavailable Re-disclosure Warning The records that [...] is protected by Article 27-F of the [facility] Public Health law. If you continue you may have access to information: Regarding HIV / AIDS; Provided by facilities licensed or operated by the [facility] Office of Mental Health; or Provided by the [facility] Office for People With Developmental Disabilities. If such information is present, then the following [facility] mandated warning applies: This information has been [...] law may result in a fine or longterm sentence or both. A general authorization for the release of medical or other information is NOT sufficient authorization for further disc losure. Allergies and Adverse Reactions Type Description Substance Reaction Status Data Source(s ) Allergy to substance Allergy to substance Allergy to substance YUNG ([facility]) Family History Family Member Name Family Member Gender Family Member Status Date o f Status Description Data Source(s) Unknown Male Problem MEDENT ([facility] ) Encounters Encounter Providers Location Date Indications Data Source(s ) Outpatient [address] [facility] [address] 12/25/2020 12:00:00 AM EST eCW1 ([facility]) (WND STRTCH) Stretcher Required Patients [address] [place] [address] 12/15/2020 12:00:00 AM EST eCW1 ([facility]) Unknown [address] [facility] [address] 12/14/2020 12:00:00 AM EST eCW1 ([facility]) (WND STRTCH) Stretcher Required Patients [address] [place] [address] 12/04/2020 12:00:00 AM EST eCW1 ([facility]) ([id number]) For Template Landon [address] [place] [address] 11/27/2020 12:00:00 AM EST eCW1 ([facility]) ([id number]) For Template [place] [address] [place] [address] 11/20/2020 12:00:00 AM EST eCW1 ([facility]) Unknown [address] [facility] [address] 11/18/2020 12:00:00 AM EST [facility] Unknown [address] [facility] [address] 11/16/2020 12:00:00 AM EST eCW1 [facility]) Outpatient [address] [facility] [address] 10/30/2020 12:00:00 AM EST eCW1 [facility]) ([id number]) For Template Landon [facility] [place] [address] 10/23/2020 12:00:00 AM EST eCW1 ([facility]) ([id number]) For Template [place]andon [address] [place] [address] 10/16/2020 12:00:00 AM EST eCW1 ([facility]) Unknown [address] [facility] [address] 10/16/2020 12:00:00 AM EST eCW1 ([facility] Unknown [address] [facility] [address] 10/02/2020 12:00:00 AM EST eCW1 ([facility]) Unknown [address] [facility] [address] 10/02/2020 12:00:00 AM EST eCW1 ([facility]) Outpatient [address] [facility] [address] 09/25/2020 12:00:00 AM EST eCW1 ([facility]) ([id number]) For Template [place] [address] [place] [address] 09/18/2020 12:00:00 AM EST eCW1 ([facility]) ([id number]) For Template [place] [address] [place] [address] 09/11/2020 12:00:00 AM EDT eCW1 ([facility]) Unknown [address] [facility] [address] 09/10/2020 12:00:00 AM EDT eCW1 ([facility]) Outpatient Attender: MARYLU VALERO 09/07/2020 11:30:02 A M EDT [facility] Unknown [address] [place] [address] 09/07/2020 12:00:00 AM EDT eCW1 ([facility]) MARYLU Padilla-BC: [address] [place] [address], Ph. Attender: Jazmyne VALERO [facility] Medical 09/07/2020 12:00:00 AM EDT YUNG ([facility]) ([id number]) For Template [place] [address] [place] [address] 09/04/2020 12:00:00 AM EDT eCW1 ([facility]) Outpatient Attender: MARYLU VALERO 08/31/2020 09:14:02 P M EDT [facility] Outpatient Attender: Jazmyne TORREZ 08/31/2020 09:1 4:02 PM EDT [facility] Outpatient Attender: MARYLU TORREZ 08/31/2020 09:13:00 P M EDT [facility] Outpatient Attender: Jazmyne VALERO 08/31/2020 09:1 3:00 PM EDT [facility] Outpatient Attender: Jazmyne TORREZ 08/31/2020 08:1 7:02 PM EDT [facility] Outpatient Attender: MARYLU TORREZ 08/31/2020 09:29:01 A M EDT [facility] ([id number]) For Template [place] [address] [place] [address] 08/28/2020 12:00:00 AM EDT eCW1 ([facility]) ([id number]) For Template [place] [address] [place] [address] 08/21/2020 12:00:00 AM EDT eCW1 ([facility]) Outpatient Attender: MARYLU VALERO FP 08/20/2020 10:31:01 A M EDT [facility] Outpatient [address] [facility] [address] 08/14/2020 12:00:00 AM EDT eCW1 ([facility]) Unknown [address] [facility] [address] 08/14/2020 12:00:00 AM EDT eCW1 ([facility]) Outpatient Attender: MARYLU TORREZ 08/12/2020 06:10:02 A M EDT [facility] Outpatient Attender: Jazmyne VALERO FP 08/12/2020 06:1 0:01 AM EDT [facility] Unknown [address] [facility] [address] 08/12/2020 12:00:00 AM EDT eCW1 ([facility]) Outpatient Attender: MARYLU TORREZ 08/07/2020 12:02:12 A M EDT [facility] Outpatient Attender: Jazmyne TORREZ 08/06/2020 04:4 6:01 PM EDT [facility] Outpatient Attender: MARYLU VALERO FP 08/06/2020 04:46:00 P M EDT [facility] Outpatient Attender: MARYLU TORREZ 08/06/2020 02:42:00 P M EDT [facility] Outpatient Attender: MARYLU TORREZ 08/06/2020 02:40:00 P M EDT [facility] Outpatient Attender: MARYLU Morse NECKTIE TURNER FP 08/06/2020 02:39:00 P M EDT [facility] Outpatient Attender: MARYLU DYERP FP 08/05/2020 12:02:16 A M EDT [facility] Outpatient Attender: MARYLU Morse NECKTIE TURNER FP 08/04/2020 11:35:01 A M EDT [facility] Outpatient Attender: MARYLU Morse NECKTIE TURNER FP 08/01/2020 12:02:05 A M EDT [facility] Outpatient Attender: Jazmyne Morse NECKTIE TURNER FP 07/31/2020 11:2 6:01 AM EDT [facility] Outpatient Attender: MARYLU DYERP FP 07/31/2020 09:54:00 A M EDT [facility] Outpatient Attender: MARYLU Morse NECKTIE TURNER FP 07/31/2020 09:50:01 A M EDT [facility] Outpatient Attender: Jazmyne DYERP FP 06/04/2020 11:4 4:00 PM EDT [facility] Outpatient Attender: MARYLU Morse NECKTIE TURNER FP 06/04/2020 11:43:59 P M EDT [facility] Outpatient Attender: MARYLU DYERP FP 04/21/2020 07:37:54 P M EDT [facility] Outpatient Attender: Jazmyne DYERP FP 04/12/2020 05:2 6:01 PM EDT [facility] Outpatient Attender: MARYLU Morse NECKTIE TURNER FP 03/26/2020 11:15:00 A M EDT [facility] Outpatient Attender: Jazmyne DYERP FP [...] DYERP FP 02/01/2020 09:42:02 P M EDT [facility] Outpatient Attender: Jazmyne DYERP FP 02/01/2020 09:4 2:01 PM EDT [facility] Outpatient Attender: Jazmyne DYERP FP 01/09/2020 07:5 5:00 PM [facility] Outpatient Attender: Jazmyne DYERP FP 01/09/2020 01:4 9:02 PM [facility] Outpatient Attender: MARYLU Morse NECKTIE TURNER FP 01/09/2020 01:47:01 P [facility] Outpatient Attender: Jazmyne DYERP FP 01/09/2020 01:4 7:00 PM [facility] Outpatient Attender: MARYLU DYERP FP 01/08/2020 09:29:01 A M [facility] Outpatient Attender: Jazmyne DYERP FP 01/06/2020 01:5 1:02 PM [facility] Outpatient Attender: MARYLU Morse NECKTIE TURNER FP 01/06/2020 01:04:00 P [facility] Outpatient Attender: MARYLU DYERP FP 01/06/2020 01:03:00 P [facility] Outpatient Attender: MARYLU Morse NECKTIE TURNER FP 01/06/2020 01:02:01 P [facility] Outpatient Attender: MARYLU Morse NECKTIE TURNER FP 01/06/2020 12:46:00 P [facility] Outpatient Attender: MARYLU Morse NECKTIE TURNER FP 01/06/2020 12:10:03 P [facility] Outpatient Referrer: Sarai MONTERROSO 12/25/2019 03:28:00 PM [facility] Outpatient Attender: Jazmyne DYERP FP 12/06/2019 09:3 2:16 AM [facility] Outpatient Attender: MARYLU Morse NECKTIE TURNER FP 11/29/2019 11:21:01 A M [facility] Outpatient Attender: MARYLU Morse NECKTIE TURNER FP 11/04/2019 09:01:02 P [facility] Immunizations Vaccine Date Status Description Data Source(s) influenza, recombinant, quadrIvalent,injectable, prese rvative free 08/21/2020 01:11:00 PM EDT completed eCW1 ([facility]) influenza, recombinant, quadrIvalent,injectable, prese rvative free 08/21/2020 01:11:00 PM EDT completed eCW1 ([facility]) influenza, recombinant, quadrIvalent,injectable, prese rvative free 08/21/2020 01:11:00 PM EDT completed eCW1 ([facility]) influenza, recombinant, quadrIvalent,injectable, prese rvative free 08/21/2020 01:11:00 PM EDT completed eCW1 ([facility]) influenza, recombinant, quadrIvalent,injectable, prese rvative free 08/21/2020 01:11:00 PM EDT completed eCW1 ([facility]) influenza, recombinant, quadrIvalent,injectable, prese rvative free 08/21/2020 01:11:00 PM EDT completed eCW1 ([facility]) influenza, recombinant, quadrIvalent,injectable, prese rvative free 08/21/2020 01:11:00 PM EDT completed eCW1 ([facility]) influenza, recombinant, quadrIvalent,injectable, prese rvative free 08/21/2020 01:11:00 PM EDT completed eCW1 ([facility]) influenza, recombinant, quadrIvalent,injectable, prese rvative free 08/21/2020 01:11:00 PM EDT completed eCW1 ([facility]) influenza, recombinant, quadrIvalent,injectable, prese rvative free 08/21/2020 01:11:00 PM EDT completed eCW1 ([facility]) influenza, recombinant, quadrIvalent,injectable, prese rvative free 08/21/2020 01:11:00 PM EDT completed eCW1 ([facility]) influenza, recombinant, quadrIvalent,injectable, prese rvative free 08/21/2020 01:11:00 PM EDT completed eCW1 ([facility]) influenza, recombinant, quadrIvalent,injectable, prese rvative free 08/21/2020 01:11:00 PM EDT completed eCW1 ([facility]) influenza, recombinant, quadrIvalent,injectable, prese rvative free 08/21/2020 01:11:00 PM EDT completed eCW1 ([facility]) influenza, recombinant, quadrIvalent,injectable, prese rvative free 08/21/2020 01:11:00 PM EDT completed eCW1 ([facility]) influenza, recombinant, quadrIvalent,injectable, prese rvative free 08/21/2020 01:11:00 PM EDT completed eCW1 ([facility]) influenza, recombinant, quadrIvalent,injectable, prese rvative free 08/21/2020 01:11:00 PM EDT completed eCW1 ([facility] to [facility]) influenza, recombinant, quadrIvalent,injectable, prese rvative free 08/21/2020 01:11:00 PM EDT completed eCW1 ([facility] to [facility]) influenza, recombinant, quadrIvalent,injectable, prese rvative free 08/21/2020 01:11:00 PM EDT completed eCW1 ([facility]) influenza, recombinant, quadrIvalent,injectable, prese rvative free 08/21/2020 01:11:00 PM EDT completed eCW1 ([facility]) influenza, recombinant, quadrIvalent,injectable, prese rvative free 08/21/2020 01:11:00 PM EDT completed eCW1 ([facility]) influenza, recombinant, quadrIvalent,injectable, prese rvative free 08/21/2020 01:11:00 PM EDT completed eCW1 ([facility]) influenza, recombinant, quadrIvalent,injectable, prese rvative free 08/21/2020 01:11:00 PM EDT completed eCW1 ([facility]) influenza, recombinant, quadrIvalent,injectable, prese rvative free 08/21/2020 01:11:00 PM EDT completed eCW1 ([facility] to [facility]) Medications Medication Brand Name Start Date Product [...] {tablet} active Doxycycline Hyclate 100 MG eCW1 ([facility]) 0.25 mg 08/07/2020 12:00:00 AM EDT tablet [...] TWICE A DAY FOR 10 DAYS [facility] Erythromycin 333 MG Delayed Release Oral Tablet erythromycin 333 mg tablet,delayed release erythromycin 333 mg tablet,delayed release completed erythromycin 333 MG Delayed Rele ase Oral Tablet YUNG ([facility]) Penicillin V Potassium 500 MG Oral Tablet penicillin V potassium 500 mg tablet penicillin V potassium 500 mg tablet c ompleted penicillin V potassium 500 MG Oral Tablet YUNG ([facility]) doxycycline hyclate 100 MG Oral Tablet doxycycline hyc late 100 mg tablet doxycycline hyclate 100 mg tablet comp leted doxycycline hyclate 100 MG Oral Tablet YUNG ([facility]) Metronidazole 500 MG Oral Tablet metronidazole 500 mg tablet metronidazole 500 mg tablet completed metronidazol e 500 MG Oral Tablet [place] ([facility]) Clindamycin 300 MG Oral Capsule clindamycin HCl 300 mg capsule clindamycin HCl 300 mg capsule completed clindam ycin 300 MG Oral Capsule [place] ([facility]) silver sulfadiazine 10 MG/ML Topical Cre am silver sulfadiazine 1 % topical cream silver sulfadiazine 1 % topical cream completed silver sulfadiazine 10 MG/ML Topical Cream YUNG ([facility]) Cephalexin 500 MG Oral Capsule cephalexin 500 mg capsu le cephalexin 500 mg capsule completed cephalexin 500 MG Oral Capsule YUNG ([facility]) Levofloxacin 750 MG Oral Tablet levofloxacin 750 mg ta blet levofloxacin 750 mg tablet completed levofloxacin 75 0 MG Oral Tablet YUNG ([facility]) Insurance Providers Payer name Policy type / Coverage type Policy ID Covered republican ID Covered republican's relationship to landon Policy Landon Plan Information [facility] MCRO [id number] SP [id number] [facility] MCRHMO [id number] SP [id number] MEDICARE COMPLETE [id number] SP [id number] MEDICARE COMPLETE [id number] SP [id number] MEDICARE [id number] SP [id number] A MEDICARE [id number] SP [id number] [facility] Secure Horizons P [id number] S [id number] Medicare S [id number] S [id number] A [facility] [id number] SP [id number] MEDICARE BLUE PPO [id number] SP [id number] SELF PAY ONLY [id number] SP [id number] MEDICARE COMPLETE-UHC O [id number] S [id number] [facility] MCRO [id number] SP [id number] [facility] MCDHMO [id number] SP [id number] [facility] Secure Horizons P [id number] S [id number] Excell[employer] BCBS S [id number] S [id number] [id number] MEDICARE COMPLETE-UHC O [id number] S [id number] MEDICARE COMPLETE [id number] SP [id number] Medicare P [id number] S [id number] A Bshmo ZFC,[id number],Yoy,ZFH,[id number] Medigap Part B [id number] Self [id number] MVP (pr) Commercial [id number] Self [id number] Blue Shield MCR Advantage Commercial [id number] Self [id number] [employer] BCYO P [id number] S [id number] [id number] [facility] O [id number] S [id number] SELF PAY ONLY UNAVAILABLE SP UNAV AILABLE [facility] P [id number] S [id number] Self Pay P [id number] S [id number] [facility] P [id number] S [id number] [facility] [id number] SP [id number] [facility] [id number] SP [id number] [facility] P [id number] S [id number] [facility] PHY [id number] SP [id number] [facility] COMM HMO [id number] S [id number] [facility] O [id number] S [id number] [facility] PHY [id number] SP [id number] SELF PAY UNAVAILABLE UNAVAILA BLE Sliding Fee Scale S [id number] S [id number] [facility] P [id number] S [id number] P UNAVAILABLE UNAVAILA BLE [facility] P [id number] S [id number] [facility] P [id number] S [id number] [facility] P [id number] S [id number] BCBS [place] PPO 302/307 [id number] SP [id number] Problems, Conditions, and Diagnoses Code Display Name Description Problem Type Effective Dates Data Source(s) L97.422 [id number] Non-pressure chronic ulcer of left heel and midfoot with fat layer exposed Problem 09/25/2020 12:00:00 AM EST eCW1 ([facility]) L97.411 [id number] Non-pressure chronic ulcer of right 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 Problem 08/28/2020 12:00:00 AM EDT eCW1 ([facility]) [id number] Clinical finding Clinical Finding Problem 08/27/2020 04 :30:27 PM EDT YUNG ([facility]) L97.524 [id number] Non-pressure chronic ulcer of other part of left foot with necrosis of bone Problem 08/14/2020 12:00:00 AM EDT eCW1 ([facility]) L97.512 [id number] Non-pressure chronic ulcer of other part of right foot with fat layer exposed Problem 08/13/2020 12:00:00 AM EDT eCW1 ([facility]) E11.621 [id number] Type 2 diabetes mellitus with foot ulcer Problem 08/13/2020 12:00:00 AM EDT W1 ([facility]) Z89.422 Acquired absence of other left toe(s) Amputated toe of left foot 08/12/2020 06:09:35 AM EDT [facility] V05.9 Vaccination Vaccination 08/12/2020 06:09:35 AM EDT [facility] 781.2 Unsteady gait Unsteady gait 01/06/2020 12:08:58 PM EST [facility] [id number] Clinical history and observation finding s Clinical History and Observation Findings Problem 01/06/2020 12:00:00 AM EST YUNG ([facility]) Surgeries/Procedures Procedure Description Date Indications Data Source(s) FINE NEEDLE ASPIRATION W/O IMAGING GUIDANCE 12/25/2020 12:00:00 AM EST eCW1 ([facility]) Medication: 2% Lidocaine intradermal 12/25/2020 12:00: 00 AM EST eCW1 ([facility]) Medication: 2% Lidocaine intradermal 12/15/2020 12:00: 00 AM EST eCW1 ([facility]) FINE NEEDLE ASPIRATION W/O IMAGING GUIDANCE 12/15/2020 12:00:00 AM EST eCW1 ([facility]) FINE NEEDLE ASPIRATION W/O IMAGING GUIDANCE 12/04/2020 12:00:00 AM EST eCW1 ([facility]) FINE NEEDLE ASPIRATION W/O IMAGING GUIDANCE 11/27/2020 12:00:00 AM EST eCW1 ([facility]) FINE NEEDLE ASPIRATION W/O IMAGING GUIDANCE 11/20/2020 12:00:00 AM EST eCW1 ([facility]) FINE NEEDLE ASPIRATION W/O IMAGING GUIDANCE 10/30/2020 12:00:00 AM EST eCW1 ([facility]) FINE NEEDLE ASPIRATION W/O IMAGING GUIDANCE 10/23/2020 12:00:00 AM EST eCW1 ([facility]) FINE NEEDLE ASPIRATION W/O IMAGING GUIDANCE 10/16/2020 12:00:00 AM EST eCW1 ([facility]) FINE NEEDLE ASPIRATION W/O IMAGING GUIDANCE 09/25/2020 12:00:00 AM EST eCW1 ([facility]) FINE NEEDLE ASPIRATION W/O IMAGING GUIDANCE 09/18/2020 12:00:00 AM EST eCW1 ([facility]) FINE NEEDLE ASPIRATION W/O IMAGING GUIDANCE 09/11/2020 12:00:00 AM EDT eCW1 ([facility]) FINE NEEDLE ASPIRATION W/O IMAGING GUIDANCE 09/04/2020 12:00:00 AM EDT eCW1 ([facility]) FINE NEEDLE ASPIRATION W/O IMAGING GUIDANCE 08/28/2020 12:00:00 AM EDT eCW1 ([facility]) FINE NEEDLE ASPIRATION W/O IMAGING GUIDANCE 08/21/2020 12:00:00 AM EDT eCW1 ([facility]) Results ID Date Data Source [id number] 08/31/2020 10:40:33 AM EDT [facility] In-House Blood TestsDate/Time Colle cted: August 31, 2020 9:35 AMTest Result Reference Range Normal ValueComments: Blood drawn in office from left AC, tolerated Manuelole Henrry KIM, August 31, 2020 10:41 AMAssessment & Plan Orders:[id number] Vst-Est Level I [CPT-73575] 13838 - Venipuncture [CPT-08314] Name Value Range Interpretation Code Description Data Lynette rce(s) Supporting Document(s) ID Date Data Source [id number] 08/31/2020 09:35:00 AM EDT [facility] Name Value Range Interpretation Code Description Data Lynette rce(s) Supporting Document(s) VIT D25 TOT 17.7 ng/mL 30.0-100.0 L [facility] BG FASTING 225 mg/dL 70-100 H [facility] T4, FREE 1.57 ng/dL 0.76-1.46 H [facility] TSH 2.090 microintl units/mL 0.358-3.740 N [facility] ID Date Data Source [id number] 08/31/2020 09:35:00 AM EDT [facility] Name Value Range Interpretation Code Description Data Lynette rce(s) Supporting Document(s) HCT 36.3 % 36.0-47.0 N [facility] HGB 10.9 g/dL 12.0-15.5 L [facility] MCH 30.0 G/DL pg 32.0-36.5 L [facility] MCHC 24.3 PG % 27.0-33.0 L [facility] PLATELETS 541 10 10*3/mm3 150-450 H [facility] RBC 4.48 10 10*6/mm3 4.00-5.40 N [facility] RDW 15.1 % 11.5-14.5 H [facility] WBC TOTAL 10.6 4.0-10.0 H [facility] ID Date Data Source [id number] 08/31/2020 09:35:00 AM EDT [facility] Name Value Range Interpretation Code Description Data Lynette rce(s) Supporting Document(s) HGBA1C 8.0 % N [facility] ID Date Data Source PREALBUMIN 08/28/2020 04:05:44 AM EDT eCW1 ([facility]) Name Value Range Interpretation Code Description Data Lynette rce(s) Supporting Document(s) 10.4 PREALBUMIN eCW1 (Critical access hospital) ID Date Data Source C REACTIVE PROTEIN QUANTITATIV (At [facility]) 08/28/2020 04:05 :37 AM EDT eCW1 ([facility]) Name Value Range Interpretation Code Description Data Lynette rce(s) Supporting Document(s) 8.26 C REACTIVE PROTEIN QUANTITATIV eCW1 ([facility]) ID Date Data Source Comprehensive Metabolic Profile (CMP) 08/28/2020 04:05:31 AM EDT eCW1 ([facility]) Name Value Range Interpretation Code Description Data Lynette rce(s) Supporting Document(s) 16 BLOOD UREA NITROGEN eCW1 ([facility]) 179 GLUCOSE, FASTING eCW1 ([facility]) 0.82 CREATININE FOR GFR eCW1 ([facility]) 4.2 POTASSIUM SERUM eCW1 ([facility]) 101 CHLORIDE LEVEL eCW1 ([facility]) > 60.0 GLOMERULAR FILTRATION RATE eCW 1 ([facility]) 135 SODIUM LEVEL eCW1 ([facility]) 9 ALT/SGPT eCW1 (Pending sale to [facility]) 28 CARBON DIOXIDE LEVEL eCW1 (Counts include 234 beds at the [facility]) 9.2 CALCIUM LEVEL eCW1 ([facility]) 5 AST/SGOT eCW1 (Pending sale to [facility]) 0.7 BILIRUBIN,TOTAL eCW1 ([facility]) 94 ALKALINE PHOSPHATASE eCW1 (Counts include 234 beds at the [facility]) 7.1 TOTAL PROTEIN eCW1 ([facility]) 0.7 ALBUMIN/GLOBULIN RATIO eCW1 ([facility]) 2.9 ALBUMIN eCW1 (Pending sale to [facility]) ID Date Data Source [id number] 08/28/2020 04:05:20 AM EDT eCW1 ([facility]) Name Value Range Interpretation Code Description Data Lynette rce(s) Supporting Document(s) Hemoglobin A1c/Hemoglobin.total in Blood 7.8 HEMOGLOBIN A1c eCW1 ([facility]) ID Date Data Source ERYTHROCYTE SEDIMENTATION RATE 08/28/2020 04:05:13 AM EDT eC W1 ([facility]) Name Value Range Interpretation Code Description Data Lynette rce(s) Supporting Document(s) 65 ERYTHROCYTE SEDIMENTATION RATE eCW1 ([facility]) ID Date Data Source CBC with Differential 08/28/2020 04:05:03 AM EDT eCW1 ([facility]) Name Value Range Interpretation Code Description Data Lynette rce(s) Supporting Document(s) 8.1 WHITE BLOOD COUNT eCW1 ([facility]) 33.5 HEMATOCRIT eCW1 (Critical access hospital) 80.5 MEAN CORPUSCULAR VOLUME eCW1 ( [facility]) 4.16 RED BLOOD COUNT eCW1 ([facility]) 10.0 HEMOGLOBIN eCW1 (Critical access hospital) 15.5 RED CELL DISTRIBUTION WIDTH eC W1 ([facility]) 24.0 MEAN CORPUSCULAR HEMOGLOBIN eC W1 ([facility]) 29.9 MEAN CORPUSCULAR HGB CONC eCW1 ([facility]) 365 PLATELET COUNT, AUTOMATED eCW1 ([facility]) 15.0 LYMPH % eCW1 (Pending sale to [facility]) 73.6 NEUTROPHILS % eCW1 ([facility]) 7.7 MONO % eCW1 (Pending sale to [facility]) 2.5 EOS % eCW1 (Pending sale to [facility]) 0.7 BASO % eCW1 (Pending sale to [facility]) 1.2 LYMPH # eCW1 (Pending sale to [facility]) 5.9 NEUTROPHILS # eCW1 ([facility]) 0.1 BASO # eCW1 (Pending sale to [facility]) 0.2 EOS # eCW1 (Pending sale to [facility]) 0.6 MONO # eCW1 (Pending sale to [facility]) ID Date Data Source WOUND CULTURE 08/21/2020 04:06:50 AM EDT eCW1 ([facility]) Name Value Range Interpretation Code Description Data Lynette rce(s) Supporting Document(s) WOUND CULTURE eCW1 ([facility]) ID Date Data Source Pathology Request For Service 08/21/2020 04:06:02 AM EDT eCW 1 ([facility]) Name Value Range Interpretation Code Description Data Lynette rce(s) Supporting Document(s) SKELETAL eCW1 (Pending sale to [facility]) ID Date Data Source [id number] 08/06/2020 03:17:19 PM EDT [facility] Measurements & CalculationsHeight: 67.50 inches 171.45 cm [...] been [facility] the [facility]? [facility] reported today: 05/19/2020Have you [...] her daughter today. Pt states wound care [facility] three times weekly. Pt states sees Dr Nicholas at the wound center every other week. Pt states no longer sees Dr Escoto anymore Pt states that they had a disagreement about a bill. Pt states overwhelmed with recent left foot amputation. left partial ampu tation.. Pt states was prescribed Resperaldal for her Curry shakes. Pt agree to neurology referral. Pt states will go [place] far as [place] if not able to get in locally. [...] injuries from falls. HPI performed by: Jazmyne DYERP, August 06, 2020 3:59 PMTransitions of Care InboundProblem ReviewProblem List was reviewed and/or updated during this visit.Medication Reconciliation & ReviewMedication List was reviewed and/or updated during this visit, including review of any dryd-sqq-rylzmvv medications, herbal therapies, and/or supplements.Allergy ReviewAllergy List [...] Plan Problems:Added: Amputated toe of left foot (OAQ47-J18.422) Assessment: recent amputated left 5th metatarsal and metatarsal bone. 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 following podiatry and wound care. unable to view , covered with dressing. Instructions: Please continue to folllow with orthotic technician and community engagement specialist as scheduled. 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 W will contact [facility] to set this up. We will refill your Resperdal until you are established with a new Neurologist.Hypertension (ICD-401.9) (JEU05-W49) Assessment: Instructions: Your Blood Pressure is at goal today. Please continue medication as prescribed. Please continue lifestyle changes to include healthy diet and physical activities. Please try to avoid added sodium in your diet. Please try to avoid processed foods. Please try to maintain adequate Fluid intake.Unsteady gait (ICD-781.2) (UHU37-Y09.81) Assessment: Pt would like to have a [...] fax script to [facility].MORBID OBESITY (ICD- 278.01) (PXH63-I34.01) Assessment: Instructions: Please continue lifestyle changes to include healthy diet and physical activities. please try to avoid processed foods.Pt try to limit sugars, carbohydrates, sodium and fats in your diet.Patient Instructions/Care Plan: Curry's disease: We have made a referral for you today today. W will contact [facility] to set this up. We will [...] left foot: Please continue to folllow with orthotic technician and community engagement specialist as scheduled. Please report any increased [...] ORAL RISPERDAL 0.25 MG ORAL TABLET Qty: [id number] Refills: 30[Tablet] To: RISPERIDONE 0.25 MG ORAL TABLET-take one tablet by mouth daily at bedtime. Qty: 30[Tablet] Refills: 2Allergies:No Known Allergies (updated 12/04/2018) Orders:Neurology Consult [CPT-84593] COMP METABOLIC PANEL [CPT-35047] CBC W/DIFF [CPT-97031] HgBA1c [CPT-91203] LIPID PANEL [CPT-02489] TSH [CPT-67335] T-4 free [CPT-03697] Vitamin D 250H Unspecified [CPT-51575] URINALYSIS [CPT-83020] Urine Culture [CPT-83084] FluLaval Quadrivalent, preservative free [CPT-06917] 52781 - Immo Admin (over 19 yrs), 1st Vaccine [CPT-88576] Adult - Ofc Vst, EST, Level IV [CPT-31930] Follow- Up Return to clinic: 3-4 weeks for follow up Clinical Visit Summary CompletedMedications:WHEEL CHAIR Use for assistance with Mobility #1 x 0 En tered and Authorized by: Jazmyne VALERO Method used: Printed then faxed to ... [facility] (retail) [address] [place] [address] Fax: Indications: UNSTEADY GAIT;MORBID OBESITY;NEVIN'S DISEASE;AMPUTATED TOE OF LEFT FOOT RxID: [id number] 0.25 MG ORAL TABLET (RISPERIDONE) take one tablet by mouth daily at bedtime. #30[Tablet] x 2 Route:ORAL Entered and Authorized by: Jazmyne VALERO Method used: Electronically to [facility] (retail) [address] [place] [address] Ph: Note to Pharmacy: Route: ORAL; Indications: NEVIN'S DISEASE RxID: [id number] Questionnaire1) Does the patient have a long-term [...] / IM / Left DeltoidNDC / CVX: [id number] / 171Administered Date: 08/06/2020 17:16VFC Eligibility: Not VFC EligibleVIS Date: 06/27/2019VIS Given / VIS Given On: Yes / 08/06/2020Comments: Administered by: Amanda Moncada LPN Name Value Range Interpretation Code Description Data Lynette rce(s) Supporting Document(s) ID Date Data Source [id number] 07/30/2020 12:00:00 AM EDT [facility] Name Value Range Interpretation Code Description Data Lynette rce(s) Supporting Document(s) HCT 33.0 % 36.0-47.0 L [facility] HGB 10.1 g/dL 12.0-15.5 L [facility] MCH 30.6 G/DL pg 32.0-36.5 L [facility] MCHC 23.9 PG % 27.0-33.0 L [facility] PLATELETS 390 10 10*3/mm3 150-450 N [facility] RBC 4.22 10 10*6/mm3 4.00-5.40 N [facility] RDW 14.9 % 11.5-14.5 H [facility] WBC TOTAL 10.7 4.0-10.0 H [facility] ID Date Data Source [id number] 06/02/2020 03:31:00 PM EDT [facility] Name Value Range Interpretation Code Description Data Lynette rce(s) Supporting Document(s) BG FASTING 288 mg/dL 70-100 H [facility] CRP 4.82 mg/dL 0.00-0.30 H [facility] ID Date Data Source [id number] 06/02/2020 03:31:00 PM EDT [facility] Name Value Range Interpretation Code Description Data Lynette rce(s) Supporting Document(s) ESR 76 mm/hr 0-30 H [facility] HCT 31.1 % 36.0-47.0 L [facility] HGB 9.7 g/dL 12.0-15.5 L [facility] MCH 31.2 G/DL pg 32.0-36.5 L [facility] MCHC 24.7 PG % 27.0-33.0 L [facility] PLATELETS 404 10 10*3/mm3 150-450 N [facility] RBC 3.93 10 10*6/mm3 4.00-5.40 L [facility] RDW 14.1 % 11.5-14.5 N [facility] WBC TOTAL 8.8 4.0-10.0 N [facility] ID Date Data Source [id number] 01/08/2020 10:03:35 AM EST [facility] Labs In-House Blood TestsDate/Time Colle cted: January 08, 2020 10:03 AMDate/Time Received: January 08, 2020 10:03 AMTest Result Reference Range Normal ValueComments: blood draw done in office done in the right ac tolerated well Sumit Coleman MA, January 08, 2020 10:03 AMAssessment & Plan Orders:[id number] Vst-Est Level I [CPT-40781] 05538 - Venipuncture [CPT- 55611] Name Value Range Interpretation Code Description Data Lynette rce(s) Supporting Document(s) ID Date Data Source [id number] 01/08/2020 10:00:00 AM [facility] Name Value Range Interpretation Code Description Data Lynette rce(s) Supporting Document(s) VIT D25 TOT 19.3 ng/mL 30.0-100.0 L [facility] BG FASTING 182 mg/dL 70-100 H [facility] T4, FREE 1.31 ng/dL 0.76-1.46 N [facility] TSH 2.170 microintl units/mL 0.358-3.740 N [facility] ID Date Data Source [id number] 01/08/2020 10:00:00 AM [facility] Name Value Range Interpretation Code Description Data Lynette rce(s) Supporting Document(s) HGBA1C 8.3 % N [facility] ID Date Data Source [id number] 01/08/2020 10:00:00 AM [facility] Name Value Range Interpretation Code Description Data Lynette rce(s) Supporting Document(s) HCT 39.5 % 36.0-47.0 [facility] HGB 12.0 g/dL 12.0-15.5 N [facility] MCH 30.4 G/DL pg 32.0-36.5 [facility] M[facility]C 25.9 PG % 27.0-33.0 L [facility] PLATELETS 356 10 10*3/mm3 150-450 N [facility] RBC 4.63 10 10*6/mm3 4.00-5.40 [facility] RDW 13.8 % 11.5-14.5 [facility] WBC TOTAL 6.9 4.0-10.0 [facility] ID Date Data Source [id number] 01/06/2020 10:55:33 AM [facility] Measurements & CalculationsHeight: 67.50 inches [...] History:Diabetes, Type 2Huntingtons diseaseSurgical History:- 1978 and 1981Gallbladder- 1981Cyst removal base of spine 2013Family History:FH [...] a Rolling walker. 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 Pt states was dx with nevin disease 5 years ago. Instructions: Please continue medication as prescribed. Please continue to follow with your specialist as scheduled. Please continue with good family support.Hypertension (ICD-401.9) (HDX06-X14) Assessment: Instructions: Please continue medication as prescribed. Please continue lifestyle changes to include healthy diet and physical activities. Please try to avoid added sodium in your diet. Please try to avoid processed foods. Please try to maintain adequate pluid intake.HEALTH SCREENING (ICD-V70.0) (HYR40-N49.9) Assessment: Instructions: We have ordered labs for you today. Please return to have labs drawn prior to your next visit. Please fast for 8-10 hours prior.MORBID OBESITY (ICD-278.01) (FXB09-I41.01) Assessment: Instructions: Please start lifestyle changes to include diet and physical activities. please try to avoid processed foods.Assessment not SavedANAL FISTULA (PUD93-P59.3): Patient Instructions/Care Plan: Nevin's disease: Please continue medication as prescribed. Please [...] Known Allergies (updated 12/04/2018) Orders:COMP METABOLIC PANEL [CPT-23227] CBC W/DIFF [CPT-68459] HgBA1c [CPT-08052] LIPID PANEL [CPT- 08031] TSH [CPT-41593] T-4 free [CPT-66469] Vitamin D 250H Unspecified [CPT- 23494] URINALYSIS [CPT-58159] Adult - Ofc Vst, EST, Level IV [CPT-00286] Follow- Up Return to clinic: 3-4 weeks for follow up Clinical Visit Summary Completed] Name Value Range Interpretation Code Description Data Lynette rce(s) Supporting Document(s) Procedure Vital Signs ID Date Data Source UNK Name Value Range Interpretation Code Description Data Source(s) Diastolic blood pressure 85 mm[Hg] 85 mm[Hg] eCW1 ([facility]) Systolic blood pressure 124 mm[Hg] 124 mm[Hg] e CW1 ([facility]) Body temperature 96.5 [degF] 96.5 [degF] eCW1 ( [facility]) Respiratory rate 18 /min 18 /min eCW1 ([facility]) Heart rate 86 /min 86 /min eCW1 ([facility]) Body mass index (BMI) [Ratio] 47.16 kg/m2 47.16 kg/m2 eCW1 ([facility]) Body height [in_i] eCW1 ([facility]) Body weight kg eCW1 ([facility]) Body weight 290 [lb_av] 290 [lb_av] eCW1 ([facility]) Diastolic blood pressure 63 mm[Hg] 63 mm[Hg] eCW1 ([facility]) Systolic blood pressure 134 mm[Hg] 134 mm[Hg] e CW1 ([facility]) Body temperature 97.2 [degF] 97.2 [degF] eCW1 ( [facility]) Respiratory rate 20 /min 20 /min eCW1 ([facility]) Heart rate 83 /min 83 /min eCW1 ([facility]) Body mass index (BMI) [Ratio] 47.16 kg/m2 47.16 kg/m2 W1 ([facility]) Body height [in_i] eCW1 ([facility]) Body weight 290 [lb_av] 290 [lb_av] eCW1 ([facility]) Diastolic blood pressure 84 mm[Hg] 84 mm[Hg] eCW1 ([facility]) Systolic blood pressure 151 mm[Hg] 151 mm[Hg] e CW1 ([facility]) Body temperature 95.4 [degF] 95.4 [degF] eCW1 ( [facility]) Respiratory rate 18 /min 18 /min eCW1 ([facility]) Heart rate 74 /min 74 /min eCW1 ([facility]) Body mass index (BMI) [Ratio] 47.16 kg/m2 47.16 kg/m2 eCW1 ([facility]) Body height [in_i] eCW1 ([facility]) Body weight kg eCW1 ([facility]) Body weight 290 [lb_av] 290 [lb_av] eCW1 ([facility]) Diastolic blood pressure 74 mm[Hg] 74 mm[Hg] eCW1 ([facility]) Systolic blood pressure 169 mm[Hg] 169 mm[Hg] e CW1 ([facility]) Body temperature 97.8 [degF] 97.8 [degF] eCW1 ( [facility]) Respiratory rate 18 /min 18 /min eCW1 ([facility]) Heart rate 89 /min 89 /min eCW1 ([facility]) Body mass index (BMI) [Ratio] 47.16 kg/m2 47.16 kg/m2 eCW1 ([facility]) Body height [in_i] eCW1 ([facility]) Body weight kg eCW1 ([facility]) Body weight 290 [lb_av] 290 [lb_av] eCW1 ([facility]) Diastolic blood pressure mm[Hg] eCW1 ([facility]) Systolic blood pressure 134 mm[Hg] 134 mm[Hg] e CW1 ([facility]) Body temperature 96.3 [degF] 96.3 [degF] eCW1 ( [facility]) Respiratory rate 17 /min 17 /min eCW1 ([facility]) Heart rate 81 /min 81 /min eCW1 ([facility]) Body mass index (BMI) [Ratio] 47.16 kg/m2 47.16 kg/m2 eCW1 ([facility]) Body height [in_i] eCW1 ([facility]) Body weight 290 [lb_av] 290 [lb_av] eCW1 ([facility]) Diastolic blood pressure 57 mm[Hg] 57 mm[Hg] eCW1 ([facility]) Systolic blood pressure 138 mm[Hg] 138 mm[Hg] e CW1 ([facility]) Body temperature 97.5 [degF] 97.5 [degF] eCW1 ( [facility]) Respiratory rate 18 /min 18 /min eCW1 ([facility]) Heart rate 97 /min 97 /min eCW1 ([facility]) Body mass index (BMI) [Ratio] 47.16 kg/m2 47.16 kg/m2 eCW1 ([facility]) Body height [in_i] eCW1 ([facility]) Body weight 290 [lb_av] 290 [lb_av] eCW1 ([facility]) Diastolic blood pressure 60 mm[Hg] 60 mm[Hg] eCW1 ([facility]) Systolic blood pressure 142 mm[Hg] 142 mm[Hg] e CW1 ([facility]) Body temperature 96.8 [degF] 96.8 [degF] eCW1 ( [facility]) Respiratory rate 18 /min 18 /min eCW1 ([facility]) Heart rate 82 /min 82 /min eCW1 ([facility]) Body mass index (BMI) [Ratio] 47.16 kg/m2 47.16 kg/m2 W1 ([facility]) Body height [in_i] eCW1 ([facility]) Body weight kg eCW1 ([facility]) Body weight 290 [lb_av] 290 [lb_av] eCW1 ([facility]) Diastolic blood pressure 82 mm[Hg] 82 mm[Hg] eCW1 ([facility]) Systolic blood pressure 147 mm[Hg] 147 mm[Hg] e CW1 ([facility]) Body temperature 95 [degF] 95 [degF] eCW1 ([facility]) Respiratory rate 20 /min 20 /min eCW1 ([facility]) Heart rate 110 /min 110 /min eCW1 ([facility]) Body mass index (BMI) [Ratio] 47.16 kg/m2 47.16 kg/m2 eCW1 ([facility]) Body height [in_i] eCW1 ([facility]) Body weight kg eCW1 ([facility]) Body weight 290 [lb_av] 290 [lb_av] eCW1 ([facility]) Diastolic blood pressure 92 mm[Hg] 92 mm[Hg] eCW1 ([facility]) Systolic blood pressure 189 mm[Hg] 189 mm[Hg] e CW1 ([facility]) Body temperature 96.9 [degF] 96.9 [degF] eCW1 ( [facility]) Respiratory rate 18 /min 18 /min eCW1 ([facility]) Heart rate 84 /min 84 /min eCW1 ([facility]) Body mass index (BMI) [Ratio] 47.16 kg/m2 47.16 kg/m2 W1 ([facility]) Body height [in_i] eCW1 ([facility]) Body weight 290 [lb_av] 290 [lb_av] eCW1 ([facility]) Diastolic blood pressure 77 mm[Hg] 77 mm[Hg] eCW1 ([facility]) Systolic blood pressure 145 mm[Hg] 145 mm[Hg] e CW1 ([facility]) Body temperature 97.5 [degF] 97.5 [degF] eCW1 ( [facility]) Respiratory rate 16 /min 16 /min eCW1 ([facility]) Heart rate 80 /min 80 /min eCW1 ([facility]) Body mass index (BMI) [Ratio] 47.16 kg/m2 47.16 kg/m2 eCW1 ([facility]) Body height [in_i] eCW1 ([facility]) Body weight 290 [lb_av] 290 [lb_av] eCW1 ([facility]) Diastolic blood pressure 82 mm[Hg] 82 mm[Hg] eCW1 ([facility]) Systolic blood pressure 134 mm[Hg] 134 mm[Hg] e CW1 ([facility]) Body temperature 97.7 [degF] 97.7 [degF] eCW1 ( [facility]) Respiratory rate 18 /min 18 /min eCW1 ([facility]) Heart rate 96 /min 96 /min eCW1 ([facility]) Body mass index (BMI) [Ratio] 47.16 kg/m2 47.16 kg/m2 eCW1 ([facility]) Body height [in_i] eCW1 ([facility]) Body weight kg eCW1 ([facility]) Body weight 290 [lb_av] 290 [lb_av] eCW1 ([facility]) Body weight 4678.4 [oz_av] 4678.4 [oz_av] ATHEN A ([facility]) Systolic blood pressure 124 mm[Hg] 124 mm[Hg] A THENA ([facility]) Body mass index (BMI) [Ratio] 45.1 kg/m2 45.1 k g/m2 YUNG ([facility]) Body height 67.5 [in_i] 67.5 [in_i] YUNG ([facility]) Diastolic blood pressure 59 mm[Hg] 59 mm[Hg] YUNG ([facility]) Diastolic blood pressure 82 mm[Hg] 82 mm[Hg] eCW1 ([facility]) Systolic blood pressure 144 mm[Hg] 144 mm[Hg] e CW1 ([facility]) Body temperature 96.5 [degF] 96.5 [degF] eCW1 ( [facility]) Respiratory rate 18 /min 18 /min eCW1 ([facility]) Heart rate 86 /min 86 /min eCW1 ([facility]) Body mass index (BMI) [Ratio] 47.16 kg/m2 47.16 kg/m2 eCW1 ([facility]) Body height [in_i] eCW1 ([facility]) Body weight kg eCW1 ([facility]) Body weight 290 [lb_av] 290 [lb_av] eCW1 ([facility]) Body mass index (BMI) [Ratio] 47.16 kg/m2 47.16 kg/m2 eCW1 ([facility]) Body height [in_i] eCW1 ([facility]) Body weight kg eCW1 ([facility]) Body weight 290 [lb_av] 290 [lb_av] eCW1 ([facility]) Diastolic blood pressure 58 mm[Hg] 58 mm[Hg] eCW1 ([facility]) Systolic blood pressure 122 mm[Hg] 122 mm[Hg] e CW1 ([facility]) Body temperature 97.6 [degF] 97.6 [degF] eCW1 ( [facility]) Respiratory rate 18 /min 18 /min eCW1 ([facility]) Heart rate 102 /min 102 /min eCW1 ([facility]) Body temperature 96.8 [degF] 96.8 [degF] eCW1 ( [facility]) Respiratory rate 18 /min 18 /min eCW1 ([facility]) Heart rate 111 /min 111 /min eCW1 ([facility]) Body mass index (BMI) [Ratio] 47.16 kg/m2 47.16 kg/m2 eCW1 ([facility]) Body height [in_i] eCW1 ([facility]) Body weight kg eCW1 ([facility]) Body weight 290 [lb_av] 290 [lb_av] eCW1 ([facility]) Diastolic blood pressure 56 mm[Hg] 56 mm[Hg] eCW1 ([facility]) Systolic blood pressure 118 mm[Hg] 118 mm[Hg] e CW1 ([facility]) Body temperature 96.6 [degF] 96.6 [degF] eCW1 ( [facility]) Respiratory rate 16 /min 16 /min eCW1 ([facility]) Heart rate 71 /min 71 /min eCW1 ([facility]) Body mass index (BMI) [Ratio] 47.16 kg/m2 47.16 kg/m2 eCW1 ([facility]) Body height [in_i] eCW1 ([facility]) Body weight kg eCW1 ([facility]) Body weight 290 [lb_av] 290 [lb_av] eCW1 ([facility]) Body weight 4996 [oz_av] 4996 [oz_av] YUNG ([facility]) Systolic blood pressure 128 mm[Hg] 128 mm[Hg] A THENA ([facility]) Body height 67.5 [in_i] 67.5 [in_i] YUNG ([facility]) Diastolic blood pressure 58 mm[Hg] 58 mm[Hg] YUNG ([facility]) Patient Treatment Plan of Care Planned Activity Planned Date Details Description Data Source (s) doxycycline hyclate 100 MG Oral Tablet 08/21/2020 12:00:00 AM EDT eCW1 ([facility]) silver sulfadiazine 10 MG/ML Topical Cream YUNG ([facility]) Penicillin V Potassium 500 MG Oral Tablet YUNG ([facility]) Metronidazole 500 MG Oral Tablet YUNG ([facility]) Levofloxacin 750 MG Oral Tablet YUNG ([facility]) Erythromycin 333 MG Delayed Release Oral Tablet YUNG ([facility]) doxycycline hyclate 100 [facility] Clindamycin 300 MG [facility] Capsule [facility] Cephalexin 500 MG Oral Capsule YUNG ([facility])
[2021-01-01 23:31] VITALS: BP 142/94
[2021-01-01] MEDS ORDERED: PILL CUTTER 1 EACH XX PRN (23:45)
[2021-01-02] MEDS ORDERED: UNRESOLVED CLARIFICATION ENTRY XX SCH (00:01)
[2021-01-02] MEDS: DOCUSATE SODIUM 100MG CAPSULE PO SCH ×2 (00:56→20:57)
[2021-01-02] MEDS: PIPERACILLIN/TAZOBACTAM SOD 3.375 GM in D5W MINI-BAG PLUS 50 ML IV SCH ×3 (00:56→10:08)
[2021-01-02] MEDS: HumaLOG INSULIN (NovoLOG) PER UNIT SC SCH ×5 (00:57→20:58)
[2021-01-02] MEDS: risperiDONE 0.5 MG TAB PO SCH ×3 (00:57→20:58)
[2021-01-02] MEDS: ACETAMINOPHEN TAB 650MG DOSE (2X325MG) PO PRN ×2 (00:58→20:59)
[2021-01-02] MEDS: LEVEMIR (INSULIN DETEMIR) 1 UNITS/0.01ML SC SCH ×3 (01:04→21:00)
[2021-01-02] MEDS ORDERED: NYSTATIN 100,000 UNITS/GM TOPICAL PWD 15 GM TOP PRN (05:15)
[2021-01-02 06:00] VITALS: BP 110/46
[2021-01-02 06:25] LABS: BLOOD UREA NITROGEN 12 MG/DL (7-18); CARBON DIOXIDE LEVEL 26 MEQ/L (21-32); CHLORIDE LEVEL 104 MEQ/L (98-107); CREATININE FOR GFR 0.71 MG/DL (0.55-1.30); GLOMERULAR FILTRATION RATE > 60.0 (>45); GLUCOSE, FASTING 108 MG/DL (70-100); SODIUM LEVEL 137 MEQ/L (136-145)
[2021-01-02 06:26] LABS: CALCIUM LEVEL 8.2 MG/DL (8.8-10.2)
[2021-01-02 06:33] LABS: HEMATOCRIT 25.4 % (36.0-47.0); HEMOGLOBIN 7.5 g/dl (12.0-15.5); MEAN CORPUSCULAR HEMOGLOBIN 23.4 pg (27.0-33.0); MEAN CORPUSCULAR HGB CONC 29.5 g/dl (32.0-36.5); MEAN CORPUSCULAR VOLUME 79.4 fl (80.0-96.0); PLATELET COUNT, AUTOMATED 419 10^3/uL (150-450); WHITE BLOOD COUNT 7.1 10^3/uL (4.0-10.0)
[2021-01-02] MEDS ORDERED: VANCOMYCIN HCL 1,000 MG, VIAL MATE ADAPTER 1 EACH in D5W 250 ML IV SCH (07:00)
[2021-01-02] MEDS ORDERED: VANCOMYCIN HCL 750 MG, VIAL MATE ADAPTER 1 EACH in D5W 250 ML IV SCH ×2 (09:00→10:00)
[2021-01-02] MEDS ORDERED: ENOXAPARIN 40MG/0.4ML SYRINGE (J1650 PER 10MG) SC SCH (09:00)
[2021-01-02] MEDS ORDERED: CLOPIDOGREL 75 MG TAB PO SCH (09:00)
[2021-01-02 09:36] LABS: HEMOGLOBIN A1c 7.7 %
--- NOTE | 2021-01-02 10:30 | REPVR ---
PROCEDURE INFORMATION: Exam: MR Right Lower Extremity Other Than Joint Without Contrast; Foot Exam date and time: 01/02/2021 9:36 AM Age: 60 years old Clinical indication: Pain; Swelling, leg or foot; Right; Prior surgery; Surgery date: 6+ months; Additional info: Look for osteomyelitis of foot TECHNIQUE: Imaging protocol: MR of the Right lower extremity without contrast. Exam focused on the foot. COMPARISON: CR Foot, complete 01/01/2021 4:59 PM FINDINGS: Bones and cartilage: Diffuse large area of abnormal increased T2 signal of the majority of the calcaneus most suspicious for prominent osteomyelitis. Calcaneal spur. Prominent area of abnormal increased T2 signal of the medial cuneiform bone most pronounced dorsally. 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 Irregular less prominent areas of abnormally increased marrow signal within the midportion of the talar. Prominent limitation secondary to motion artifact. Joint spaces: Small ankle joint effusion. Degenerative arthritis 1st metatarsophalangeal joint. LIGAMENTS: Lisfranc ligament: Unremarkable. No evidence of tear. TENDONS: Flexor tendons of foot: Fluid within posterior tibial, flexor hallucis longus and flexor digitorum longus tendons. Fluid within peroneal tendon sheath. Tibialis posterior tendon: Fluid within tendon sheath. Peroneal tendons: See "Flexor tendons of foot" finding. Extensor tendons of foot: Not well visualized. Tibialis anterior tendon: Not completely visualized. Achilles tendon: Thickening and probable prominent area of calcification of the Achilles tendon. There is surrounding soft tissue stranding edema/cellulitis. Prominent diffuse dorsal and most prominent plantar subcutaneous stranding soft tissue changes of edema or cellulitis. Tarsal canal (Sinus tarsi): Increased T2 signal. Tarsal tunnel: Increased T2 signal. Soft tissues: Large soft tissue wound/ulceration at the calcaneal level posteriorly. Areas increased T2 signal within the joint space and deep soft tissues of the flexor compartment of the right foot. Subtle demonstration of soft tissue abscess limited in the absence of contrast media. Plantar fascia: Thickening of plantar fascia. IMPRESSION: 1. Large posterior calcaneal soft tissue ulceration. 2. Large area of signal abnormality of the calcaneus most suspicious for osteomyelitis. 3. Areas mild signal abnormality mid talus and prominent signal abnormality within the medial cuneiform bone could reflect additional areas of osteomyelitis. 4. Diffuse superficial and deep compartment soft tissue edema or cellulitis. Limited assessment at the superficial wound site for complete exclusion of small or subtle abscess. 5. Diminished T2 and diminished T1 at the Achilles tendon probably calcific although less confirmatory by MRI assessment. 6. Peroneal, posterior tibial, flexor hallucis longus and flexor digitorum longus tenosynovitis. Electronically signed by: Bibi Avilez On 01/02/2021 10:30:39 AM
[2021-01-02 10:36] LABS: HEMATOCRIT 30.6 % (36.0-47.0); MEAN CORPUSCULAR HEMOGLOBIN 23.4 pg (27.0-33.0); MEAN CORPUSCULAR HGB CONC 29.4 g/dl (32.0-36.5); MEAN CORPUSCULAR VOLUME 79.5 fl (80.0-96.0); PLATELET COUNT, AUTOMATED 474 10^3/uL (150-450); RED BLOOD COUNT 3.85 10^6/uL (4.00-5.40); WHITE BLOOD COUNT 7.3 10^3/uL (4.0-10.0)
[2021-01-02] MEDS: VANCOMYCIN HCL 750 MG, VIAL MATE ADAPTER 1 EACH in D5W 250 ML IV SCH ×3 (11:14→22:37)
[2021-01-02] MEDS: metroNIDAZOLE 500 MG in IV 1 EA IV SCH ×2 (13:20→20:58)
[2021-01-02 14:00] VITALS: BP 112/71
[2021-01-02] MEDS: CEFEPIME HCL 2 GM in D5W MINI-BAG PLUS 50 ML IV SCH (14:24)
--- NOTE | 2021-01-02 18:26 | IPNPDOC ---
Date Seen The patient was seen on 01/02/21. Progress Note SUBJECTIVE: Patient seen in the morning, comfortable in bed, reports seeing her wound care doctor for weekly visit and was advised to come to the hospital due to requiring inpatient debridement/surgical intervention. Patient is otherwise at her baseline, without any new complaints at this time. PHYSICAL EXAMINATION: VITAL SIGNS: Please see below. GENERAL: Morbidly obese HEENT: moist mucous membranes NECK: Supple CARDIOVASCULAR EXAMINATION: S1, S2, no murmurs RESPIRATORY EXAMINATION: Diminished in the bases, no wheezing ABDOMINAL EXAMINATION: Soft, nontender, nondistended, positive bowel sounds EXTREMITIES: Right lower extremity dressing in place, clean/dry/intact NEUROLOGICAL EXAMINATION: Alert and oriented 3, resting tremor PSYCHIATRIC EXAMINATION: Calm and cooperative LABORATORY DATA, IMAGING STUDIES, MICROBIOLOGY: Please see below. ASSESSMENT AND PLAN: 60-year-old female with multiple medical problems is admitted for right foot wound requiring surgical intervention. PROBLEMS: 1. Chronic right foot wound. Follows with Dr. Nicholas in the outpatient setting, getting weekly treatments, sent in for admission requiring extensive debridement/surgical intervention. Podiatry consulted, scheduled for or tomorrow morning. Continue empiric antibiotics with vancomycin, cefepime and Flagyl. Will await intraoperative cultures to better target antibiotic therapy. 2. Diabetes mellitus. 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 Resting tremor 4. Hypertension Continue lisinopril DVT prophylaxis: Held for OR GI prophylaxis: Not needed VS, I&O, 24H, Fishbone Vital Signs/I&O Vital Signs Date Time Temp Pulse Resp B/P (MAP) Pulse Ox O2 Delivery O2 Flow Rate FiO2 01/02/21 14:00 97.7 77 16 112/71 (85) 100 Room Air I&O- Last 24 Hours up to 6 AM 01/02/21 06:00 Intake Total 1490 ml Output Total 300 ml Balance 1190 ml Laboratory Data 24H LABS Laboratory Tests 2 01/02/21 00:12: Bedside Glucose (Misc Panel) 159H 01/02/21 05:37: Nucleated Red Blood Cells % (auto) 0.0, Anion Gap 7L, Glomerular Filtration Rate > 60.0, Estimated Mean Plasma Glucose 174H, Hemoglobin A1c 7.7, Calcium Level 8.2L 01/02/21 05:59: Methicillin-Resist S.aureus DNA PCR NOT DETECTED 01/02/21 10:21: Nucleated Red Blood Cells % (auto) 0.0 01/02/21 11:37: Bedside Glucose (Misc Panel) 198H 01/02/21 17:21: Bedside Glucose (Misc Panel) 162H CBC/BMP Laboratory Tests 01/02/21 05:37 01/02/21 10:21 Microbiology Microbiology 01/02/21 Urine Culture, Received Pending 01/01/21 Respiratory Virus Panel (PCR) ([facility]) - Final, Complete 01/01/21 Blood Culture - Preliminary, Resulted No growth after 24 hours . All specim... 01/01/21 Blood Culture - Preliminary, Resulted No growth after 24 hours . All specim... MICHAEL TONY MD Jan 02, 2021 18:26
--- NOTE | 2021-01-02 20:47 | ECGEPIP ---
[facility] - ED Test Date: 2021-01-01 Pat Name: MARCELL SORIANO Department: Room: - Gender: Female Appeals Nurse: : 1960 Requested By: IRMA VALERO Order Number: [id number] Reading MD: Nupur Jacobsen Measurements Intervals [place] Rate: 85 P: 44 [place]: 164 QRS: 44 QRSD: 76 T: 10 QT: 350 QTc: 416 Interpretive Statements Sinus rhythm with occasional premature ventricular complexes prwp increased ectopy/decreased rate 12/17/19 Electronically Signed on 01-02-2021 20:47:11 EST by Nupur Jacobsen
[2021-01-02 22:00] VITALS: BP 113/70
[2021-01-03] MEDS: VANCOMYCIN HCL 750 MG, VIAL MATE ADAPTER 1 EACH in D5W 250 ML IV SCH ×4 (00:15→23:08)
[2021-01-03] MEDS: CEFEPIME HCL 2 GM in D5W MINI-BAG PLUS 50 ML IV SCH ×2 (01:46→14:43)
[2021-01-03] MEDS: metroNIDAZOLE 500 MG in IV 1 EA IV SCH ×3 (04:04→21:40)
[2021-01-03 06:00] VITALS: BP 121/68
[2021-01-03 06:06] LABS: HEMATOCRIT 28.1 % (36.0-47.0); HEMOGLOBIN 8.3 g/dl (12.0-15.5); MEAN CORPUSCULAR HEMOGLOBIN 23.6 pg (27.0-33.0); MEAN CORPUSCULAR HGB CONC 29.5 g/dl (32.0-36.5); MEAN CORPUSCULAR VOLUME 80.1 fl (80.0-96.0); PLATELET COUNT, AUTOMATED 418 10^3/uL (150-450); RED BLOOD COUNT 3.51 10^6/uL (4.00-5.40); WHITE BLOOD COUNT 6.2 10^3/uL (4.0-10.0)
[2021-01-03 06:22] LABS: BLOOD UREA NITROGEN 12 MG/DL (7-18); CALCIUM LEVEL 8.8 MG/DL (8.8-10.2); CARBON DIOXIDE LEVEL 27 MEQ/L (21-32); CHLORIDE LEVEL 104 MEQ/L (98-107); CREATININE FOR GFR 0.78 MG/DL (0.55-1.30); GLOMERULAR FILTRATION RATE > 60.0 (>45); GLUCOSE, FASTING 97 MG/DL (70-100); POTASSIUM SERUM 4.4 MEQ/L (3.5-5.1); SODIUM LEVEL 138 MEQ/L (136-145)
[2021-01-03] MEDS: HumaLOG INSULIN (NovoLOG) PER UNIT SC SCH ×4 (07:30→21:00)
[2021-01-03] MEDS ORDERED: LIDOCAINE 1% MDV 20ML VIAL As Ordered ONE (07:39)
[2021-01-03] MEDS ORDERED: BUPIVACAINE HCL 0.5% 10ML VIAL As Ordered ONE (07:40)
[2021-01-03] MEDS ORDERED: MIDAZOLAM INJ 2MG/2ML VIAL (J2250 PER 1MG) As Ordered ONE (08:28)
[2021-01-03] MEDS ORDERED: fentaNYL 100 MCG/2 ML INJECTION (J3010) As Ordered ONE ×2 (08:28→09:03)
[2021-01-03] MEDS ORDERED: LIDOCAINE 2% 100MG/5ML SDV (FOR ANES.) As Ordered ONE (08:28)
[2021-01-03] MEDS ORDERED: propofoL 200 MG/20 ML VIAL As Ordered ONE (08:28)
[2021-01-03] MEDS ORDERED: ONDANSETRON 4MG/2ML VIAL As Ordered ONE (08:28)
[2021-01-03] MEDS: LEVEMIR (INSULIN DETEMIR) 1 UNITS/0.01ML SC SCH ×2 (09:00→21:00)
[2021-01-03] MEDS ORDERED: oxyCODONE 5MG TAB As Ordered ONE (09:12)
[2021-01-03] MEDS ORDERED: ONDANSETRON 4MG/2ML VIAL IV PRN (09:15)
[2021-01-03] MEDS ORDERED: oxyCODONE 5MG TAB PO PRN (09:15)
[2021-01-03] MEDS ORDERED: LR 1,000 ML IV SCH (09:15)
[2021-01-03] MEDS ORDERED: fentaNYL 100 MCG/2 ML INJECTION (J3010) IV PRN (09:15)
--- NOTE | 2021-01-03 09:52 | RO ---
OPERATIVE NOTE DATE OF OPERATION: 01/03/2021 PREOPERATIVE DIAGNOSIS: Right heel ulcer, osteomyelitis. POSTOPERATIVE DIAGNOSIS: Right heel ulcer, osteomyelitis. PROCEDURE: Right heel wound debridement including soft tissue and bone, excisional. SURGEON: Nathaniel Montoya DPM MANAGER LOAN: None ANESTHESIA: Monitored anesthesia care, preop injection of 15 mL of a 1:1 mixture of 1% lidocaine plain, 1/2% Marcaine plain. ESTIMATED BLOOD LOSS: 10 mL MATERIALS: None. COMPLICATION: None. SPECIMENS: Right foot wound tissue and bone as well as aerobic and anaerobic cultures. INDICATIONS: Digna Matos is a 60-year-old female who has longstanding ulceration to her right heel. She has been under the care of the wound care center, was recently seen Monday. Worsening was noted to the wound with infection and she was sent to the ER for further evaluation. The decision was made to bring her to the operating room for operative debridement. The patient's side and site were identified and marked in the preoperative area. Consent was reviewed and obtained. The risks, complications and alternatives to the procedure were explained to the patient in detail and all questions were answered. DESCRIPTION OF PROCEDURE: The patient was brought to the operating room, placed on the stretcher in supine position. Monitored anesthesia care was noted by anesthesia team. Preop injection of 15 mL of a 1:1 mixture of 1% lidocaine plain, 1/2% Marcaine plain were injected into the right posterior heel. The foot was prepped and draped in normal sterile fashion. A tourniquet was applied to the right ankle but was not inflated during the procedure. The wound was inspected. There was necrotic tissue and bone. The Achilles tendon had been previously detached from the posterior surface of the calcaneus. Using #10 blade, nonviable tissue was excised. Culture swabs were taken of some purulent tissue and some nonviable bone was removed using an osteotome and rongeur. This sent for pathology. 1000 mL of pulse irrigation was irrigated through the wound. Some further debridement was performed with rongeur until the majority of the nonviable tissue was removed and there was good bleeding bone. Following this, saline gauze dressings were applied and the patient was brought to PACU with vital signs stable, neurovascular status intact. She will be readmitted to the floor for continued antibiotics, monitoring and wound care. We will consult care management for bariatric bed for home. The longstanding prognosis for this wound is poor given her comorbidities and the large involvement of bone. That being said, she is not an ideal candidate for any leg amputation. She will be followed up outpatient with the wound care center.
[2021-01-03 10:00] VITALS: BP 141/70
[2021-01-03] MEDS: ASPIRIN 81MG ENTERIC TABLET PO SCH (10:21)
--- NOTE | 2021-01-03 12:46 | IPNPDOC ---
Date Seen The patient was seen on 01/03/21. Progress Note SUBJECTIVE: She is seen in the morning, postop, underwent debridement of her wound and bone, doing well postop, without any complaints. PHYSICAL EXAMINATION: VITAL SIGNS: Please see below. GENERAL: Morbidly obese HEENT: moist mucous membranes NECK: Supple CARDIOVASCULAR EXAMINATION: S1, S2, no murmurs RESPIRATORY EXAMINATION: Diminished in the bases, no wheezing ABDOMINAL EXAMINATION: Soft, nontender, nondistended, positive bowel sounds EXTREMITIES: Right lower extremity dressing in place, clean/dry/intact NEUROLOGICAL EXAMINATION: Alert and oriented 3, resting tremor PSYCHIATRIC EXAMINATION: Calm and cooperative LABORATORY DATA, IMAGING STUDIES, MICROBIOLOGY: Please see below. ASSESSMENT AND PLAN: 60-year-old female with multiple medical problems is admitted for right foot wound requiring surgical intervention. PROBLEMS: 1. Chronic right foot wound, osteomyelitis. Follows with Dr. Nicholas in the outpatient setting, getting weekly treatments, sent in for admission requiring extensive debridement/surgical intervention. Podiatry consulted, underwent wound and bone debridement today. Continue empiric antibiotics with vancomycin, cefepime and Flagyl. Wound cultures pending for targeted therapy. Wound consult with Dr. Nicholas pending. 2. Diabetes mellitus. Continue Levemir with sliding scale insulin with meals and at bedtime. Restart diet 3. Delray's disease. Resting tremor 4. Hypertension Continue lisinopril DVT prophylaxis: Restart Lovenox tomorrow morning. GI prophylaxis: Not needed VS, I&O, 24H, Fishbone Vital Signs/I&O Vital Signs Date Time Temp Pulse Resp B/P (MAP) Pulse Ox O2 Delivery O2 Flow Rate FiO2 01/03/21 10:00 98.4 75 18 141/70 (93) 96 Room Air 01/03/21 08:58 100 I&O- Last 24 Hours up to 6 AM 01/03/21 06:00 Intake Total 2240 ml Output Total 0 ml Balance 2240 ml Laboratory Data 24H LABS Laboratory Tests 2 01/02/21 17:21: Bedside Glucose (Misc Panel) 162H 01/02/21 20:30: Bedside Glucose (Misc Panel) 136H 01/03/21 05:32: Nucleated Red Blood Cells % (auto) 0.0, Anion Gap 7L, Glomerular Filtration Rate > 60.0, Calcium Level 8.8 01/03/21 10:28: Vancomycin Level Trough 17.1 01/03/21 11:14: Bedside Glucose (Misc Panel) 104 CBC/BMP Laboratory Tests 01/03/21 05:32 Microbiology Microbiology 01/03/21 Gram Stain - Final, Resulted 01/03/21 Surgical Biopsy Culture, Resulted Pending 01/03/21 Anaerobic Culture, Resulted Pending 01/02/21 Urine Culture, Received Pending 01/01/21 Respiratory Virus Panel (PCR) ([facility]) - Final, Complete 01/01/21 Blood Culture - Preliminary, Resulted No growth after 24 hours . All specim... 01/01/21 Blood Culture - Preliminary, Resulted No growth after 24 hours . All specim... MICHAEL TONY MD Jan 03, 2021 12:46
[2021-01-03 14:00] VITALS: BP 130/64
[2021-01-03] MEDS ORDERED: LEVEMIR (INSULIN DETEMIR) 1 UNITS/0.01ML SC ONE (21:00)
[2021-01-03] MEDS: DOCUSATE SODIUM 100MG CAPSULE PO SCH (21:36)
[2021-01-03] MEDS: risperiDONE 0.5 MG TAB PO SCH (21:37)
[2021-01-03 22:00] VITALS: BP 119/46
[2021-01-04] MEDS: VANCOMYCIN HCL 750 MG, VIAL MATE ADAPTER 1 EACH in D5W 250 ML IV SCH (00:32)
[2021-01-04] MEDS: CEFEPIME HCL 2 GM in D5W MINI-BAG PLUS 50 ML IV SCH ×2 (01:46→16:07)
[2021-01-04] MEDS: metroNIDAZOLE 500 MG in IV 1 EA IV SCH ×2 (04:03→14:51)
[2021-01-04 06:00] VITALS: BP 126/58
[2021-01-04 06:02] LABS: HEMATOCRIT 27.3 % (36.0-47.0); HEMOGLOBIN 8.2 g/dl (12.0-15.5); MEAN CORPUSCULAR HEMOGLOBIN 23.8 pg (27.0-33.0); MEAN CORPUSCULAR VOLUME 79.4 fl (80.0-96.0); PLATELET COUNT, AUTOMATED 411 10^3/uL (150-450); RED BLOOD COUNT 3.44 10^6/uL (4.00-5.40); WHITE BLOOD COUNT 6.8 10^3/uL (4.0-10.0)
[2021-01-04 06:23] LABS: ALBUMIN 2.1 GM/DL (3.2-5.2); ALT/SGPT 10 U/L (12-78); BILIRUBIN,TOTAL 0.3 MG/DL (0.2-1.0); BLOOD UREA NITROGEN 10 MG/DL (7-18); CALCIUM LEVEL 8.5 MG/DL (8.8-10.2); CARBON DIOXIDE LEVEL 27 MEQ/L (21-32); CHLORIDE LEVEL 100 MEQ/L (98-107); GLOMERULAR FILTRATION RATE > 60.0 (>45); GLUCOSE, FASTING 219 MG/DL (70-100); MAGNESIUM LEVEL 1.5 MG/DL (1.8-2.4); POTASSIUM SERUM 4.6 MEQ/L (3.5-5.1); SODIUM LEVEL 134 MEQ/L (136-145)
[2021-01-04] MEDS: HumaLOG INSULIN (NovoLOG) PER UNIT SC SCH ×4 (07:47→21:00)
[2021-01-04 08:00] VITALS: BP 117/46
--- NOTE | 2021-01-04 09:25 | CR ---
CONSULTATION DATE: 01/02/2021 REASON FOR CONSULTATION: Heel ulceration. Digna Matos is a 60-year-old female who was admitted with worsening condition of her right foot. She has a longstanding ulceration, for which she has been under the care of the wound care center. She was recently seen there yesterday and from there was sent to the emergency room due to redness and condition of the wound. She states she is largely bed bound. Has not walked on the foot in about 6 months. She does have some feeling and some pain to her foot. MEDICAL HISTORY: Significant for: 1. Hypertension. 2. Diabetes. 3. Hyperlipidemia. 4. Pulmonary embolism. 5. [place]'s disease. SURGICAL HISTORY: 1. section. 2. Gallbladder. 3. Right breast biopsy. 4. Left lower extremity angioplasty. 5. Left toe amputation. SOCIAL HISTORY: Negative for tobacco or alcohol use. REVIEW OF SYSTEMS: Positive for recent subjective fevers and weakness. Vital signs are reviewed. She has been afebrile. Labs are reviewed. White blood cell count today is 7.3, on admission was 9.6. Hemoglobin is 9 today. CRP 7.21. Hemoglobin A1c was 7.7. Imaging studies are reviewed. Foot x-ray and foot MRI have findings suggestive of osteomyelitis of the posterior calcaneus with a large soft tissue ulceration and some air in the site. Lower extremity examination: There is significant edema to bilateral lower extremities. Pedal pulses are nonpalpable. On the right foot there is a large ulceration of the posterior aspect of the heel with necrotic tendon and some bone exposed with surrounding local erythema. ASSESSMENT: A 60-year-old diabetic female with pressure ulceration and osteomyelitis, right foot. Treatment discussed with patient. Will plan for operative wound debridement, including bone, tomorrow. We will take some cultures. Patient will have a very challenging time healing this in the long run given her comorbidities, inability to keep adequate pressure off the heel, and the involvement of bone in the foot. They discussed that she may ultimately lead to a leg amputation. Presently it is not required, and she would also likely not have an easy time healing this procedure either. For now, michele pete continue aggressive wound care at the wound care center following resolution of this infection. She may do well with some form of pressure offloading mattress at home in addition to her offloading boot, which she has been wearing. We will see if care management potentially could help arrange something like this once she is ready for discharge.
[2021-01-04] MEDS: ENOXAPARIN 40MG/0.4ML SYRINGE (J1650 PER 10MG) SC SCH (10:04)
[2021-01-04] MEDS: LEVEMIR (INSULIN DETEMIR) 1 UNITS/0.01ML SC SCH ×2 (10:13→21:38)
[2021-01-04] MEDS: MAG SULF 1GM/100ML (MAG RUN) 1 GM in IV 1 EA IV SCH ×4 (10:23→16:51)
[2021-01-04 14:00] VITALS: BP 121/44
[2021-01-04] MEDS ORDERED: VANCOMYCIN HCL 750 MG, VIAL MATE ADAPTER 1 EACH in D5W 250 ML IV SCH (14:00)
--- NOTE | 2021-01-04 14:59 | IPNPDOC ---
Date Seen The patient was seen on 01/04/21. Progress Note SUBJECTIVE: She is seen in the morning, comfortable in bed, had an episode of urinary incontinence overnight, no other complaints. PHYSICAL EXAMINATION: VITAL SIGNS: Please see below. GENERAL: Morbidly obese HEENT: moist mucous membranes NECK: Supple CARDIOVASCULAR EXAMINATION: S1, S2, no murmurs RESPIRATORY EXAMINATION: Diminished in the bases, no wheezing ABDOMINAL EXAMINATION: Soft, nontender, nondistended, positive bowel sounds EXTREMITIES: Right lower extremity dressing in place, clean/dry/intact NEUROLOGICAL EXAMINATION: Alert and oriented 3, resting tremor PSYCHIATRIC EXAMINATION: Calm and cooperative LABORATORY DATA, IMAGING STUDIES, MICROBIOLOGY: Please see below. ASSESSMENT AND PLAN: 60-year-old female with multiple medical problems is admitted for right foot wound requiring surgical intervention. PROBLEMS: 1. Chronic right foot wound, osteomyelitis. Follows with Dr. Nicholas in the outpatient setting, getting weekly treatments, sent in for admission requiring extensive debridement/surgical intervention. Podiatry consulted, underwent wound and bone debridement 01/03/21. Continue empiric antibiotics with vancomycin, cefepime and Flagyl. Wound cultures pending for targeted therapy. Infectious disease consulted Wound consult with Dr. Nicholas pending. 2. Diabetes mellitus. Continue Levemir with sliding scale insulin with meals and at bedtime. 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 Resting tremor 4. Hypertension Continue lisinopril 5. Hypomagnesemia. Supplemented IV DVT prophylaxis: Lovenox GI prophylaxis: Not needed VS, I&O, 24H, Fishbone Vital Signs/I&O Vital Signs Date Time Temp Pulse Resp B/P (MAP) Pulse Ox O2 Delivery O2 Flow Rate FiO2 01/04/21 08:00 97.9 73 16 117/46 (69) 96 Room Air 01/03/21 08:58 100 I&O- Last 24 Hours up to 6 AM 01/04/21 06:00 Intake Total 4475 ml Output Total 110 ml Balance 4365 ml Laboratory Data 24H LABS Laboratory Tests 2 01/03/21 16:41: Bedside Glucose (Misc Panel) 189H 01/03/21 20:17: Bedside Glucose (Misc Panel) 149H 01/04/21 05:43: Nucleated Red Blood Cells % (auto) 0.0, Anion Gap 7L, Glomerular Filtration Rate > 60.0, Calcium Level 8.5L, Phosphorus Level 3.0, Magnesium Level 1.5L, Total Bi lirubin 0.3, Aspartate Amino Transf (AST/SGOT) 4L, Alanine Aminotransferase (ALT/SGPT) 10L, Alkaline Phosphatase 84, Total Protein 6.0L, Albumin 2.1L, Albumin/Globulin Ratio 0.5L 01/04/21 10:07: Vancomycin Level Trough 20.7H 01/04/21 11:28: Bedside Glucose (Misc Panel) 200H CBC/BMP Laboratory Tests 01/04/21 05:43 Microbiology Microbiology 01/03/21 Gram Stain - Final, Resulted 01/03/21 Surgical Biopsy Culture, Resulted Pending 01/03/21 Anaerobic Culture, Resulted Pending 01/02/21 Urine Culture - Final, Complete 01/01/21 Respiratory Virus Panel (PCR) ([facility]) - Final, Complete 01/01/21 Blood Culture - Preliminary, Resulted No Growth after 48 hours. All Specime... 01/01/21 Blood Culture - Preliminary, Resulted No Growth after 48 hours. All Specime... MICHAEL TONY MD Jan 04, 2021 14:59
[2021-01-04] MEDS ORDERED: VANCOMYCIN HCL 500 MG in D5W MINI-BAG PLUS 100 ML IV SCH (15:00)
[2021-01-04] MEDS ORDERED: MAGNESIUM SULFATE 1GM/100ML D5W BAG (10MG/ML) As Ordered ONE (16:47)
[2021-01-04] MEDS: risperiDONE 0.5 MG TAB PO SCH (21:38)
[2021-01-04] MEDS: DOCUSATE SODIUM 100MG CAPSULE PO SCH (21:38)
[2021-01-04] MEDS: PIPERACILLIN/TAZOBACTAM SOD 3.375 GM in D5W MINI-BAG PLUS 50 ML IV SCH (21:39)
[2021-01-04 21:59] VITALS: BP 113/45
[2021-01-05] MEDS: PIPERACILLIN/TAZOBACTAM SOD 3.375 GM in D5W MINI-BAG PLUS 50 ML IV SCH ×4 (04:24→22:31)
[2021-01-05 06:00] VITALS: BP 119/51
[2021-01-05 07:01] LABS: HEMATOCRIT 28.6 % (36.0-47.0); HEMOGLOBIN 8.5 g/dl (12.0-15.5); MEAN CORPUSCULAR HEMOGLOBIN 23.8 pg (27.0-33.0); MEAN CORPUSCULAR HGB CONC 29.7 g/dl (32.0-36.5); MEAN CORPUSCULAR VOLUME 80.1 fl (80.0-96.0); PLATELET COUNT, AUTOMATED 450 10^3/uL (150-450); RED BLOOD COUNT 3.57 10^6/uL (4.00-5.40); WHITE BLOOD COUNT 7.3 10^3/uL (4.0-10.0)
[2021-01-05 07:13] LABS: BLOOD UREA NITROGEN 9 MG/DL (7-18); C REACTIVE PROTEIN QUANTITATIV 2.31 MG/DL (0.00-0.30); CALCIUM LEVEL 8.6 MG/DL (8.8-10.2); CARBON DIOXIDE LEVEL 26 MEQ/L (21-32); CHLORIDE LEVEL 102 MEQ/L (98-107); CREATININE FOR GFR 0.82 MG/DL (0.55-1.30); GLOMERULAR FILTRATION RATE > 60.0 (>45); GLUCOSE, FASTING 62 MG/DL (70-100); POTASSIUM SERUM 4.4 MEQ/L (3.5-5.1); SODIUM LEVEL 136 MEQ/L (136-145)
[2021-01-05] MEDS: HumaLOG INSULIN (NovoLOG) PER UNIT SC SCH ×4 (07:30→21:00)
[2021-01-05] MEDS: LEVEMIR (INSULIN DETEMIR) 1 UNITS/0.01ML SC SCH ×2 (08:52→21:00)
[2021-01-05 08:53] LABS: ERYTHROCYTE SEDIMENTATION RATE 72 mm/hr (0-30)
--- NOTE | 2021-01-05 09:36 | CR ---
INFECTIOUS DISEASE CONSULTATION DATE: 01/05/2021 REASON FOR CONSULTATION: Right heel calcaneal osteomyelitis with a very large decubitus ulcer. HISTORY OF PRESENT ILLNESS: Mrs. Matos is a pleasant 60-year-old female with a history of Mateo's disease and diabetes who presented to the hospital complaining of malaise, fever and erythema of the right lower extremity with cellulitis. The patient had an ulcer on the right heel along the calcaneus for a few months prior to admission. She was followed up at the wound center by Dr. Nicholas and Ana Burger, who had been debriding the ulcer. She was last seen on 12/25/2020 and started on doxycycline and wound culture showed group B Streptococcus. Patient presented to the emergency department (ED) with worsening erythema all the way extending to the right foot to one-third of the leg. An x-ray showed a large decubitus ulcer over the calcaneus on the right side with subcutaneous ulcer and soft tissue loss. C-reactive protein (CRP) was elevated at 7.21. Patient had an MRI of the foot which showed also osteomyelitis of the calcaneus on 01/02/2021. MRI was done without contrast. There was a large area of signal abnormality consistent with osteomyelitis along with tenosynovitis of the peroneal, posterior tibial and flexor hallucis longus. Diffuse superficial and soft tissue edema compatible with cellulitis. PAST MEDICAL HISTORY: Significant for: 1. Mateo's disease, but the patient states she is able to walk to the bathroom back and forth usually with her walker. She has been trying to offload since the infection on her left leg, but has been spending more time in bed. 2. History of hypertension. 3. Diabetes. 4. Hyperlipidemia. 5. Pulmonary embolism. 6. Morbid obesity. 7. Diabetic foot ulcer with acute osteomyelitis of the left foot status post reamputation by Dr. Kamara May 2020 with culture positive for Escherichia (E) coli and anaerobic cocci. PAST SURGICAL HISTORY: 1. (C) section times two. 2. Cholecystectomy. 3. Midline right breast biopsy, benign. 4. Left lower extremity angioplasty. MEDICATIONS: - aspirin 81 mg daily - Plavix 75 mg daily - Colace 100 mg at bedtime - doxycycline 100 mg twice a day on admission Currently, she is on: - vancomycin 1.25 grams IV every 12 hours - cefepime 2 grams IV every 12 hours - Flagyl (metronidazole) 500 mg IV every 8 hours. LABORATORY DATA: White count 6.8, hemoglobin 8.2, hematocrit 27.3, platelets 411. She had no white count on admission. Sodium 134, potassium 4.6, chloride 100, bicarbonate 27, BUN 10, creatinine 0.8, glucose 219, Hb1c 7.7, lactic acid 1, calcium 8.5, phosphorus 3, magnesium 1.5. AST 4, ALT 10, alkaline phosphatase 84, total protein 6, albumin 2.1. Vancomycin trough on 01/04/2021 was 20.7. Methicillin-resistant Staphylococcus aureus (MRSA) screen undetected. PT 14.5, PTT 31.1. Blood culture on 01/01/2021: No growth after 72 hours. Respiratory panel was negative. Wound culture is still pending. PHYSICAL EXAMINATION: She is a pleasant, healthy looking, morbidly obese female in no acute distress. HEART: Normal S1, S2. No murmurs distant. ABDOMEN: Morbidly obese. Soft, nontender, with a midline scar from cholecystectomy and another lower midline scar from , well-healed. LUNGS: Clear. No wheezes, rales or rhonchi. BACK: No costovertebral angle (CVA) tenderness. EXTREMITIES: +1 pitting edema bilaterally. Right foot has a large decubitus ulcer on the heel along the Achilles tendon measuring about 9 x 9 cm length x 6 cm width with granulation tissue, some exposed tendon, minimal surrounding cellulitis. Amputation of the fifth toe with mild erythema around the incision line laterally measuring about 2 cm with some serosanguineous discharge on the dressing. 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 This is caused by a pressure ulcer of her heel because she is mostly bed bound. Patient has secondary calcaneal osteomyelitis and will require six weeks of antibiotics, possibly a combination of IV and oral. She has heel float boots on to elevate the pressure. Patient's culture from 10 days prior to admission was positive for group B Streptococcus. The patient is not febrile, septic, does not have a history of MRSA, so therefore I would not suggest continuing all antibiotics and would just use IV Zosyn to cover for gram negative , methicillin sensitive Streptococcus aureus (MSSA) and group B Streptococcus which was on the culture done as an outpatient, and I would suspect this is going to be a similar culture. PLAN: Discontinue IV vancomycin. Discontinue IV Flagyl. Discontinue IV cefepime. Switch to Zosyn 3.375 gram IV every 6 hours. Obtain CBC, CRP, ESR for tomorrow. Obtain a peripherally inserted central catheter (PICC) line for home antibiotics. I have discussed the case with her and she will discuss it with her , who suffers with cancer, but is pretty independent and drives and probably will be able to help with her IV antibiotics. She has public health who also comes in twice a week to do dressing changes and they will also be of help for her home IV antibiotics. Further antibiotic decisions and consultation with [facility] (PFS) will depend on final cultures and her anticipated discharge. CARMEN
[2021-01-05] MEDS: ENOXAPARIN 40MG/0.4ML SYRINGE (J1650 PER 10MG) SC SCH (09:38)
[2021-01-05] MEDS: ASPIRIN 81MG ENTERIC TABLET PO SCH (09:38)
--- NOTE | 2021-01-05 12:25 | IPN ---
PROGRESS NOTE DATE: 01/05/2021 SUBJECTIVE: Patient seen and examined. States no significant pain in her foot. Denies other complaints. Vitals are reviewed. She is afebrile. LABORATORY DATA: Reviewed. White blood cell count 7.3. Erythrocyte sedimentation rate (ESR) 72. C-reactive protein (CRP) 2.31. PHYSICAL EXAMINATION: LOWER EXTREMITY EXAMINATION: Wound base is improved with no necrotic tissue. Bone is exposed with granular tissue surrounding. Erythema is reduced surrounding right heel. ASSESSMENT: A 60-year-old female diabetic female with left heel pressure ulceration, osteomyelitis status post bone debridement. PLAN: Antibiotics per Dr. Alcocer's recommendation. She should have follow up with Dr. Nicholas, who she sees outpatient. She does not need to follow up with me. Continue aggressive offloading of heel.
--- NOTE | 2021-01-05 13:46 | IPNPDOC ---
Subjective Date Seen The patient was seen on 01/05/21. Subjective Chief Complaint/HPI Does not have any complaints today. No fever or chills. Objective Physical Examination General Exam: Positive: Alert, Cooperative, No Acute Distress Eye Exam: Positive: Conjunctiva & lids normal, EOMI; Negative: Sclera icteric ENT Exam: Positive: Atraumatic, Mucous membr. moist/pink Neck Exam: Positive: Supple; Negative: thyromegaly Chest Exam: Positive: Clear to auscultation, Normal air movement Heart Exam: Positive: Rate Normal, Regular Rhythm, Normal S1, Normal S2; Negative: Murmurs, Rubs Abdomen Exam: Positive: Normal bowel sounds, Soft; Negative: Tenderness Extremity Exam: Negative: Clubbing, Cyanosis Skin Exam: Positive: Nl turgor and temperature; Negative: Rash, Breakdown Neuro Exam: Positive: Cranial Nerves 3-12 NL Psych Exam: Positive: Mental status NL, Mood NL, Oriented x 3 Assessment /Plan Assessment 60 year old female with morbid obesity with mostly bed bound, Hypertension, Diabetes mellitus, Mixed hyperlipidemia, Pulmonary embolus, [place]'s disease 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 She was being treated with outpatient antibiotics for cellulitis around the heel ulcer. On the day of admission she was not feeling well. She had fever and chills at home and felt weaker than normal. In the ED, there was erythema coming up from her right foot to the bottom third of her right leg. X- ray of left foot demonstrates large decubitus ulcer over the posterior calcaneus. There was subcutaneous emphysema and soft tissue loss at the location. She was found to have infected right heel pressure ulcer with osteomyelitis of the calcaneum. Right heel pressure ulceration with cellulitis and calcaneal osteomyelitis status post bone debridement. cultures in progress, strep agalactie, corynebacterium on zosyn antibiotics as per ID outpt follow up with Dr Nicholas. Diabetes mellitus. Levemir with sliding scale lispro insulin with meals and at bedtime. [place]'s disease. Resting tremor Hypertension Continue lisinopril Morbid obesity limited mobility. PT eval. Hypomagnesemia. replaced. Plan/VTE VTE Prophylaxis Ordered?: Yes VS, I&O, 24H, Fishbone Vital Signs/I&O Vital Signs Date Time Temp Pulse Resp B/P (MAP) Pulse Ox O2 Delivery O2 Flow Rate FiO2 01/05/21 06:00 98.7 74 19 119/51 (73) 96 Room Air 01/03/21 08:58 100 I&O- Last 24 Hours up to 6 AM 01/05/21 06:00 Intake Total 1980 ml Output Total 1850 ml Balance 130 ml Laboratory Data 24H LABS Laboratory Tests 2 01/04/21 16:39: Bedside Glucose (Misc Panel) 183H 01/04/21 20:42: Bedside Glucose (Misc Panel) 209H 01/05/21 06:16: Nucleated Red Blood Cells % (auto) 0.0, Erythrocyte Sedimentation Rate 72H, Anion Gap 8, Glomerular Filtration Rate > 60.0, Calcium Level 8.6L, C-Reactive Protein, Quantitative 2.31H 01/05/21 12:07: Bedside Glucose (Misc Panel) 111 CBC/BMP Laboratory Tests 01/05/21 06:16 Microbiology Microbiology 01/03/21 Gram Stain - Final, Resulted 01/03/21 Surgical Biopsy Culture - Preliminary, Resulted Strep Agalactiae Group B Corynebacterium Species 01/03/21 Anaerobic Culture, Resulted Pending 01/02/21 Urine Culture - Final, Complete 01/01/21 Respiratory Virus Panel (PCR) (CARLIE) - Final, Complete 01/01/21 Blood Culture - Preliminary, Resulted No Growth after 72 hours. All specime... 01/01/21 Blood Culture - Preliminary, Resulted No Growth after 72 hours. All specime... CHANDU JACK MD Jan 05, 2021 13:46
[2021-01-05 14:00] VITALS: BP 120/45
--- NOTE | 2021-01-05 21:04 | IPN ---
INFECTIOUS DISEASE PROGRESS NOTE DATE: 01/05/2021 SUBJECTIVE: Digna seems to be in good spirits. She is having dinner. She states she wanted to eat her cookie before dinner. She denies any fever or chills. No nausea, vomiting or diarrhea. She discussed with her whether he could help her with home IV antibiotics and he was very comfortable with that plan. PHYSICAL EXAMINATION: HEART: Normal S1, S2. No murmurs appreciated. LUNGS: Clear. No wheezes, rales or rhonchi. ABDOMEN: Obese. Soft, nontender. RIGHT LOWER EXTREMITY: With ulcer along the Achilles tendon with good granulation tissue. Bone is exposed. Mild erythema around the heel, but cellulitis of the leg has improved. +1 pitting edema bilaterally. LABORATORY DATA: White count 7.3, hemoglobin 8.5, hematocrit 28.6, platelets 450. Erythrocyte sedimentation rate (ESR) 72, C-reactive protein (CRP) 2.31. Sodium 136, potassium 4.4, chloride 102, bicarbonate 26, BUN 9, creatinine 0.82, glucose 62, calcium 8.6. Wound culture had group B Streptococcus, Corynebacterium species. Anaerobic culture is pending. IMPRESSION: 1. Acute osteomyelitis of the right calcaneus with cellulitis of the leg and abscess status post debridement by Dr. Montoya. Doing much better. This is the result of a decubitus ulcer. Patient on IV Zosyn 3.37 grams every 6 hours. Antibiotic choice will depend on results of culture. The patient will need 4-6 weeks of IV antibiotic depending on progress of the wound. Her will be helping with home IV antibiotic. 2. Insulin dependent diabetes. Discussed better control of her diet. Her Hb1c is fairly controlled at 7.7. PLAN: We will schedule peripherally inserted central catheter (PICC) line for tomorrow. Consult [facility] Family Services (PFS) for home IV antibiotics. If culture has only group B Streptococcus, would suggest switching to IV Rocephin 2 grams daily. If there are anaerobes, may need to continue with IV Zosyn on a continuous pump. Please call me with final results of culture to decide on antibiotic therapy. Consult [facility] for antibiotic and teaching. Patient needs to follow up at the infectious disease clinic in 2-3 weeks after she is discharged. CARMEN
[2021-01-05] MEDS: DOCUSATE SODIUM 100MG CAPSULE PO SCH (21:52)
[2021-01-05] MEDS: risperiDONE 0.5 MG TAB PO SCH (21:53)
[2021-01-05 22:00] VITALS: BP 120/45
[2021-01-05] MEDS ORDERED: LEVEMIR (INSULIN DETEMIR) 1 UNITS/0.01ML SC ONE (22:30)
[2021-01-06] MEDS: PIPERACILLIN/TAZOBACTAM SOD 3.375 GM in D5W MINI-BAG PLUS 50 ML IV SCH ×4 (04:39→21:41)
[2021-01-06 05:58] LABS: HEMATOCRIT 28.4 % (36.0-47.0); HEMOGLOBIN 8.3 g/dl (12.0-15.5); MEAN CORPUSCULAR HEMOGLOBIN 23.7 pg (27.0-33.0); MEAN CORPUSCULAR HGB CONC 29.2 g/dl (32.0-36.5); MEAN CORPUSCULAR VOLUME 81.1 fl (80.0-96.0); PLATELET COUNT, AUTOMATED 414 10^3/uL (150-450); WHITE BLOOD COUNT 6.4 10^3/uL (4.0-10.0)
[2021-01-06 06:00] VITALS: BP 104/46
[2021-01-06 06:16] LABS: BLOOD UREA NITROGEN 11 MG/DL (7-18); CALCIUM LEVEL 8.8 MG/DL (8.8-10.2); CARBON DIOXIDE LEVEL 28 MEQ/L (21-32); CHLORIDE LEVEL 102 MEQ/L (98-107); CREATININE FOR GFR 0.95 MG/DL (0.55-1.30); GLOMERULAR FILTRATION RATE > 60.0 (>45); GLUCOSE, FASTING 189 MG/DL (70-100); POTASSIUM SERUM 4.3 MEQ/L (3.5-5.1); SODIUM LEVEL 136 MEQ/L (136-145)
[2021-01-06] MEDS: HumaLOG INSULIN (NovoLOG) PER UNIT SC SCH ×4 (09:28→21:00)
[2021-01-06] MEDS: LEVEMIR (INSULIN DETEMIR) 1 UNITS/0.01ML SC SCH ×2 (09:29→21:41)
--- NOTE | 2021-01-06 11:25 | IPNPDOC ---
Subjective Date Seen The patient was seen on 01/06/21. Subjective Chief Complaint/HPI Well this morning. No complaints. Had a big bowel movement. No fever or chills, no chest pain or sob or abdominal pain. Objective Physical Examination General Exam: Positive: Alert, Cooperative, No Acute Distress Eye Exam: Positive: Conjunctiva & lids normal, EOMI; Negative: Sclera icteric ENT Exam: Positive: Atraumatic, Mucous membr. moist/pink Neck Exam: Positive: Supple; Negative: thyromegaly Chest Exam: Positive: Clear to auscultation, Normal air movement Heart Exam: Positive: Rate Normal, Regular Rhythm, Normal S1, Normal S2; Negative: Murmurs, Rubs Abdomen Exam: Positive: Normal bowel sounds, Soft; Negative: Tenderness Extremity Exam: Negative: Clubbing, Cyanosis Skin Exam: Positive: Nl turgor and temperature; Negative: Rash, Breakdown Neuro Exam: Positive: Cranial Nerves 3-12 NL Psych Exam: Positive: Mental status NL, Mood NL, Oriented x 3 Assessment /Plan Assessment 60 year old female with morbid obesity with mostly bed bound, Hypertension, Diabetes mellitus, Mixed hyperlipidemia, Pulmonary embolus, [place]'s disease 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 She was being treated with outpatient antibiotics for cellulitis around the heel ulcer. On the day of admission she was not feeling well. She had fever and chills at home and felt weaker than normal. In the ED, there was erythema coming up from her right foot to the bottom third of her right leg. X- ray of left foot demonstrates large decubitus ulcer over the posterior calcaneus. There was subcutaneous emphysema and soft tissue loss at the location. She was found to have infected right heel pressure ulcer with ost eomyelitis of the calcaneum. Right heel pressure ulceration with cellulitis and calcaneal osteomyelitis status post bone debridement. cultures in progress, strep agalactie, corynebacterium on zosyn antibiotics as per ID for 6 weeks. Its going to be either Cetriaxone or zosyn depending on th culture. outpt follow up with Dr Cristopher Alcocer in 2 to 3 weeks after discharge. Diabetes mellitus. Levemir with sliding scale lispro insulin with meals and at bedtime. Mateo's disease. Resting tremor Hypertension Continue lisinopril Morbid obesity limited mobility. PT eval. Hypomagnesemia. replaced. Plan/VTE VTE Prophylaxis Ordered?: Yes VS, I&O, 24H, Fishbone Vital Signs/I&O Vital Signs Date Time Temp Pulse Resp B/P (MAP) Pulse Ox O2 Delivery O2 Flow Rate FiO2 01/06/21 06:00 98.3 79 20 104/46 (65) 99 Room Air 01/03/21 08:58 100 I&O- Last 24 Hours up to 6 AM 01/06/21 06:00 Intake Total 2100 ml Output Total 450 ml Balance 1650 ml Laboratory Data 24H LABS Laboratory Tests 2 01/05/21 12:07: Bedside Glucose (Misc Panel) 111 01/05/21 16:41: Bedside Glucose (Misc Panel) 147H 01/05/21 21:01: Bedside Glucose (Misc Panel) 193H 01/06/21 05:34: Nucleated Red Blood Cells % (auto) 0.0, Anion Gap 6L, Glomerular Filtration Rate > 60.0, Calcium Level 8.8 01/06/21 06:06: Bedside Glucose (Misc Panel) 174H CBC/BMP Laboratory Tests 01/06/21 05:34 Microbiology Microbiology 01/03/21 Gram Stain - Final, Resulted 01/03/21 Surgical Biopsy Culture - Preliminary, Resulted Strep Agalactiae Group B Strep Anginosus (S. Milleri) Corynebacterium Species 01/03/21 Anaerobic Culture, Resulted Pending 01/02/21 Urine Culture - Final, Complete 01/01/21 Respiratory Virus Panel (PCR) (CARLIE) - Final, Complete 01/01/21 Blood Culture - Preliminary, Resulted No Growth after 72 hours. All specime... 01/01/21 Blood Culture - Preliminary, Resulted No Growth after 72 hours. All specime... CHANDU JACK MD Jan 06, 2021 11:25
[2021-01-06 14:00] VITALS: BP 99/54
[2021-01-06] MEDS ORDERED: LIDOCAINE 1% MDV 20ML VIAL As Ordered ONE (14:02)
[2021-01-06] MEDS: ENOXAPARIN 40MG/0.4ML SYRINGE (J1650 PER 10MG) SC SCH (16:46)
[2021-01-06 16:58] VITALS: BP 101/60
[2021-01-06] MEDS: SODIUM CHLORIDE 0.9% INJ 10 ML SYR IV SCH (17:51)
--- NOTE | 2021-01-06 18:17 | REP ---
PROCEDURE NAME: PICC LINE INSERTION W/SITERITE CLINICAL INFORMATION: osteomyelitis. COMPARISON: None. PROCEDURE DESCRIPTION: The procedure was performed by ROBE Kennedy, under the direct supervision of Dr. Bland. The risks and benefits of the procedure were explained to the patient and an informed consent was obtained both verbally and written. Directly prior to the start of the procedure a formal time-out was completed in the procedure room. The left basilic vein was localized using ultrasound guidance. The skin was prepped and draped in sterile fashion. Two mL of 1% lidocaine 10 mg/mL was used as a local anesthetic. Using ultrasound guidance the left basilic vein was cannulated, and a 0.018 guidewire was inserted and advanced to the level of SVC using fluoroscopic guidance. The needle was removed and a 4.5 Cambodian dilator and peel-away sheath was inserted over the guidewire. A 4.5 [place]ian single lumen catheter was cut to a length of 40 cm. The dilator was removed and the catheter was inserted over the guidewire with the tip ending at the level of the SVC. The peel-away sheath was removed and the catheter was flushed with heparinized saline as per hospital protocol. The catheter was affixed to the skin and a sterile dressing was applied. The patient tolerated the procedure well and there were no immediate complications. CONCLUSION: PICC line insertion into the left basilic vein. 0.1 minutes of fluoroscopy time was utilized for this procedure. Some fluoroscopic images are performed with last image hold technology. These images require no additional radiation. <Electronically signed by Donna Barraza > 01/06/21 1706 <Electronically signed by Garcia Bland > 01/06/21 [id number]
[2021-01-06] MEDS: DOCUSATE SODIUM 100MG CAPSULE PO SCH (21:34)
[2021-01-06] MEDS: risperiDONE 0.5 MG TAB PO SCH (21:35)
[2021-01-06] MEDS: ACETAMINOPHEN TAB 650MG DOSE (2X325MG) PO PRN (21:35)
[2021-01-06 22:00] VITALS: BP 110/59
[2021-01-06] MEDS: SODIUM CHLORIDE 0.9% INJ 10 ML SYR IV PRN (23:39)
[2021-01-07] MEDS: PIPERACILLIN/TAZOBACTAM SOD 3.375 GM in D5W MINI-BAG PLUS 50 ML IV SCH ×4 (03:01→21:44)
[2021-01-07] MEDS: SODIUM CHLORIDE 0.9% INJ 10 ML SYR IV SCH ×2 (05:05→17:24)
[2021-01-07 06:00] VITALS: BP 143/50
[2021-01-07] MEDS: HumaLOG INSULIN (NovoLOG) PER UNIT SC SCH ×4 (07:30→20:22)
[2021-01-07] MEDS: LEVEMIR (INSULIN DETEMIR) 1 UNITS/0.01ML SC SCH ×2 (09:00→20:22)
[2021-01-07] MEDS: ASPIRIN 81MG ENTERIC TABLET PO SCH (09:24)
[2021-01-07] MEDS: ENOXAPARIN 40MG/0.4ML SYRINGE (J1650 PER 10MG) SC SCH (09:24)
[2021-01-07] MEDS: SODIUM CHLORIDE 0.9% INJ 10 ML SYR IV PRN ×2 (11:14→21:46)
--- NOTE | 2021-01-07 13:20 | IPNPDOC ---
Subjective Date Seen The patient was seen on 01/07/21. Subjective Chief Complaint/HPI Waiting for final cultures to come back to decide on antibiotics. Was hypoglycemic this am so morning levemir held, no fever r chills, working with PT. Planned for home with services Objective Physical Examination General Exam: Positive: Alert, Cooperative, No Acute Distress Eye Exam: Positive: Conjunctiva & lids normal, EOMI; Negative: Sclera icteric ENT Exam: Positive: Atraumatic, Mucous membr. moist/pink Neck Exam: Positive: Supple; Negative: thyromegaly Chest Exam: Positive: Clear to auscultation, Normal air movement Heart Exam: Positive: Rate Normal, Regular Rhythm, Normal S1, Normal S2; Negative: Murmurs, Rubs Abdomen Exam: Positive: Normal bowel sounds, Soft; Negative: Tenderness Extremity Exam: Negative: Clubbing, Cyanosis Skin Exam: Positive: Nl turgor and temperature; Negative: Rash, Breakdown Neuro Exam: Positive: Cranial Nerves 3-12 NL Psych Exam: Positive: Mental status NL, Mood NL, Oriented x 3 Assessment /Plan Assessment 60 year old female with morbid obesity with mostly bed bound, Hypertension, Diabetes mellitus, Mixed hyperlipidemia, Pulmonary embolus, [place]'s disease 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 She was being treated with outpatient antibiotics for cellulitis around the heel ulcer. On the day of admission she was not feeling well. She had fever and chills at home and felt weaker than normal. In the ED, there was erythema coming up from her right foot to the bottom third of her right leg. X-ray of left foot demonstrates large decubitus ulcer over the posterior calcaneus. There was subcutaneous emphysema and soft tissue loss at the location. She was found to have infected right heel pressure ulcer with osteomyelitis of the calcaneum. Right heel pressure ulceration with cellulitis and calcaneal osteomyelitis status post bone debridement. cultures in progress, strep agalactie, corynebacterium on zosyn antibiotics as per ID for 6 weeks. Its going to be either Cetriaxone or zosyn depending on th culture. outpt follow up with Dr Cristopher Alcocer in 2 to 3 weeks after discharge. Diabetes mellitus. Levemir with sliding scale lispro insulin with meals and at bedtime. [place]'s disease. Resting tremor Hypertension Continue lisinopril Morbid obesity limited mobility. PT eval. Hypomagnesemia. replaced. COVID-19 exposure on 01/01/21 asymptomatic needs to be on quarantine till 01/12/21 Plan/VTE VTE Prophylaxis Ordered?: Yes VS, I&O, 24H, Fishbone Vital Signs/I&O Vital Signs Date Time Temp Pulse Resp B/P (MAP) Pulse Ox O2 Delivery O2 Flow Rate FiO2 01/07/21 06:00 97.7 72 20 143/50 (81) 98 01/06/21 16:58 Room Air 01/03/21 08:58 100 l I&O- Last 24 Hours up to 6 AM 01/07/21 06:00 Intake Total 1710 ml Output Total 0 ml Balance 1710 ml Laboratory Data 24H LABS Laboratory Tests 2 01/06/21 16:43: Bedside Glucose (Misc Panel) 123H 01/06/21 20:47: Bedside Glucose (Misc Panel) 222H 01/07/21 07:40: Bedside Glucose (Misc Panel) 65L 01/07/21 11:36: Bedside Glucose (Misc Panel) 154H Microbiology Microbiology 01/03/21 Gram Stain - Final, Resulted 01/03/21 Surgical Biopsy Culture - Final, Resulted Strep Agalactiae Group B Strep Anginosus Grp Corynebacterium Species 01/03/21 Anaerobic Culture, Resulted Pending 01/02/21 Urine Culture - Final, Complete 01/01/21 Respiratory Virus Panel (PCR) (CARLIE) - Final, Complete 01/01/21 Blood Culture - Final, Complete NO GROWTH AFTER 5 DAYS 01/01/21 Blood Culture - Final, Complete NO GROWTH AFTER 5 DAYS CHANDU JACK MD Jan 07, 2021 13:20
[2021-01-07] MEDS: ACETAMINOPHEN TAB 650MG DOSE (2X325MG) PO PRN (21:44)
[2021-01-07] MEDS: risperiDONE 0.5 MG TAB PO SCH (21:44)
[2021-01-07] MEDS: DOCUSATE SODIUM 100MG CAPSULE PO SCH (21:44)
[2021-01-07 22:00] VITALS: BP 104/50
[2021-01-08] MEDS: PIPERACILLIN/TAZOBACTAM SOD 3.375 GM in D5W MINI-BAG PLUS 50 ML IV SCH ×2 (04:59→10:31)
[2021-01-08] MEDS: SODIUM CHLORIDE 0.9% INJ 10 ML SYR IV SCH ×3 (05:00→17:04)
[2021-01-08 06:00] VITALS: BP 150/84
[2021-01-08] MEDS: HumaLOG INSULIN (NovoLOG) PER UNIT SC SCH ×4 (08:07→22:36)
[2021-01-08] MEDS: ENOXAPARIN 40MG/0.4ML SYRINGE (J1650 PER 10MG) SC SCH (08:08)
[2021-01-08] MEDS: LEVEMIR (INSULIN DETEMIR) 1 UNITS/0.01ML SC SCH ×2 (08:08→22:55)
[2021-01-08] MEDS: metroNIDAZOLE (FLAGYL) 500MG TABLET PO SCH ×2 (13:15→22:55)
[2021-01-08] MEDS: cefTRIAXone SOD 2 GM in D5W MINI-BAG PLUS 50 ML IV SCH (13:15)
--- NOTE | 2021-01-08 13:36 | IPNPDOC ---
Subjective Date Seen The patient was seen on 01/08/21. Subjective Chief Complaint/HPI No complaints , no fever or chills Objective Physical Examination General Exam: Positive: Alert, Cooperative, No Acute Distress Eye Exam: Positive: Conjunctiva & lids normal, EOMI; Negative: Sclera icteric ENT Exam: Positive: Atraumatic, Mucous membr. moist/pink Neck Exam: Positive: Supple; Negative: thyromegaly Chest Exam: Positive: Clear to auscultation, Normal air movement Heart Exam: Positive: Rate Normal, Regular Rhythm, Normal S1, Normal S2; Negative: Murmurs, Rubs Abdomen Exam: Positive: Normal bowel sounds, Soft; Negative: Tenderness Extremity Exam: Negative: Clubbing, Cyanosis Skin Exam: Positive: Nl turgor and temperature; Negative: Rash, Breakdown Neuro Exam: Positive: Cranial Nerves 3-12 NL Psych Exam: Positive: Mental status NL, Mood NL, Oriented x 3 Assessment /Plan Assessment 60 year old female with morbid obesity with mostly bed bound, Hypertension, Diabetes mellitus, Mixed hyperlipidemia, Pulmonary embolus, 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 She was being treated with outpatient antibiotics for cellulitis around the heel ulcer. On the day of admission she was not feeling well. She had fever and chills at home and felt weaker than normal. In the ED, there was erythema coming up from her right foot to the bottom third of her right leg. X- ray of left foot demonstrates large decubitus ulcer over the posterior calcaneus. There was subcutaneous emphysema and soft tissue loss at the location . She was found to have infected right heel pressure ulcer with osteomyelitis of the calcaneum. Right heel pressure ulceration with cellulitis and calcaneal osteomyelitis This is stage 4 decubiti of right heel due to pressure on heel from being bed bound status post bone debridement. cultures strep anginosus, strep agalactie, corynebacterium, anareobes antibiotics as per ID for 6 weeks. Ceftriaxone 2 gms and metronidazole 500mg tid. outpt follow up with Dr Cristopher Alcocer in 2 to 3 weeks after discharge. Diabetes mellitus. Levemir with sliding scale lispro insulin with meals and at bedtime. Mateo's disease. Resting tremor Hypertension Continue lisinopril Morbid obesity limited mobility. PT eval. Hypomagnesemia. replaced. COVID-19 exposure on 01/01/21 asymptomatic needs to be on quarantine till 01/12/21 Cannot leave before that as as stage 4 cancer and cannot provide her any care. Plan/VTE VTE Prophylaxis Ordered?: Yes VS, I&O, 24H, Fishbone Vital Signs/I&O Vital Signs Date Time Temp Pulse Resp B/P (MAP) Pulse Ox O2 Delivery O2 Flow Rate FiO2 01/08/21 06:00 98.8 69 20 150/84 (106) 96 01/06/21 16:58 Room Air 01/03/21 08:58 100 I&O- Last 24 Hours up to 6 AM 01/08/21 06:00 Intake Total 2080 ml Output Total 850 ml Balance 1230 ml Laboratory Data 24H LABS Laboratory Tests 2 01/07/21 17:03: Bedside Glucose (Misc Panel) 168H 01/07/21 20:17: Bedside Glucose (Misc Panel) 176H 01/08/21 06:44: Bedside Glucose (Misc Panel) 184H 01/08/21 11:59: Bedside Glucose (Misc Panel) 232H Microbiology Microbiology 01/03/21 Gram Stain - Final, Resulted 01/03/21 Surgical Biopsy Culture - Final, Resulted Strep Agalactiae Group B Strep Anginosus Grp Corynebacterium Species 01/03/21 Anaerobic Culture, Resulted Pending 01/02/21 Urine Culture - Final, Complete 01/01/21 Respiratory Virus Panel (PCR) (CARLIE) - Final, Complete 01/01/21 Blood Culture - Final, Complete NO GROWTH AFTER 5 DAYS 01/01/21 Blood Culture - Final, Complete NO GROWTH AFTER 5 DAYS CHANDU JACK MD Jan 08, 2021 13:36
[2021-01-08 14:00] VITALS: BP 132/84
--- NOTE | 2021-01-08 14:16 | IPN ---
PROGRESS NOTE DATE: 01/08/2021 Digna seems to be doing very well. She adamantly refuses to go to the skilled nursing for intravenous (IV) antibiotics. There was some concern by [facility]. Clau is nurse who had been in the house previously who stated that the does not help much with her dressing changes, and the house was not very clean. Patient denies any fever or chills. She has pain in the calf. PHYSICAL EXAMINATION: Temperature is 98.8, pulse 69, respirations 20, blood pressure 150/84, oxygen saturation 96% on room air. HEART: Normal S1, S2. No murmurs. LUNGS: Clear. ABDOMEN: Morbidly obese, soft, nontender. EXTREMITIES: Trace edema bilateral. Right heel decubitus ulcer, measuring about 10 cm x 6 cm without any exposed bone. Good granulation tissue. LABORATORY DATA: White count 6.4, hemoglobin 8.3, hematocrit 28.4, platelets 414. CRP 2.31 on January 05 and ESR 72. IMPRESSION: 1. Acute osteomyelitis of the right calcaneus with culture positive for group B streptococcus, Streptococcus anginosus, and some anaerobic gram-negative anaerobes is being identified. She has improved after debridement and on IV Zosyn. 2. Insulin-dependent diabetes, on 40 units subcutaneous twice a day with poor understanding of insulin management. 3. 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 Patient only goes few feet o the bathroom and to chair from bed 4. COVID exposure on January 01. The patient needs to remain on isolation until January 12. PLAN: Case discussed with patient home care manager rn, Nellie regarding her discharge planning. We will try to call her to see if he is able to do the infusion at home. Will call the [facility] to see if she can do the teaching, and we can evaluate whether it is doable to be done at home. She will need IV antibiotics for calcaneus osteomyelitis for 4-6 weeks. She will be switched to IV Rocephin 2 gm Q24 and PO flagyl for anaerobes 6 weeks total, she has received so far 2 weeks stated he could do infusion and Shawna refuses to go to [place]. [facility]
[2021-01-08 22:00] VITALS: BP 122/52
[2021-01-08] MEDS: DOCUSATE SODIUM 100MG CAPSULE PO SCH (22:54)
[2021-01-08] MEDS: risperiDONE 0.5 MG TAB PO SCH (22:54)
[2021-01-08] MEDS: ACETAMINOPHEN TAB 650MG DOSE (2X325MG) PO PRN (22:55)
[2021-01-09] MEDS: SODIUM CHLORIDE 0.9% INJ 10 ML SYR IV SCH ×2 (05:55→17:12)
[2021-01-09] MEDS: metroNIDAZOLE (FLAGYL) 500MG TABLET PO SCH ×3 (05:55→21:49)
[2021-01-09 06:00] VITALS: BP 124/61
[2021-01-09] MEDS: HumaLOG INSULIN (NovoLOG) PER UNIT SC SCH ×4 (07:30→21:00)
[2021-01-09] MEDS: LEVEMIR (INSULIN DETEMIR) 1 UNITS/0.01ML SC SCH ×2 (07:45→21:00)
[2021-01-09] MEDS: ENOXAPARIN 40MG/0.4ML SYRINGE (J1650 PER 10MG) SC SCH (09:25)
[2021-01-09] MEDS: ASPIRIN 81MG ENTERIC TABLET PO SCH (09:25)
[2021-01-09 14:00] VITALS: BP 120/60
[2021-01-09] MEDS: cefTRIAXone SOD 2 GM in D5W MINI-BAG PLUS 50 ML IV SCH (15:07)
[2021-01-09] MEDS: DOCUSATE SODIUM 100MG CAPSULE PO SCH (21:49)
[2021-01-09] MEDS: risperiDONE 0.5 MG TAB PO SCH (21:49)
[2021-01-09] MEDS: ACETAMINOPHEN TAB 650MG DOSE (2X325MG) PO PRN (21:51)
[2021-01-10 06:00] VITALS: BP 127/47
[2021-01-10] MEDS: SODIUM CHLORIDE 0.9% INJ 10 ML SYR IV SCH ×2 (06:16→17:22)
[2021-01-10] MEDS: metroNIDAZOLE (FLAGYL) 500MG TABLET PO SCH ×3 (06:16→21:43)
[2021-01-10] MEDS: LEVEMIR (INSULIN DETEMIR) 1 UNITS/0.01ML SC SCH ×2 (08:04→21:00)
[2021-01-10] MEDS: ENOXAPARIN 40MG/0.4ML SYRINGE (J1650 PER 10MG) SC SCH (08:10)
[2021-01-10] MEDS: HumaLOG INSULIN (NovoLOG) PER UNIT SC SCH ×4 (08:10→21:00)
[2021-01-10] MEDS: cefTRIAXone SOD 2 GM in D5W MINI-BAG PLUS 50 ML IV SCH (14:12)
[2021-01-10] MEDS: risperiDONE 0.5 MG TAB PO SCH (21:43)
[2021-01-10] MEDS: DOCUSATE SODIUM 100MG CAPSULE PO SCH (21:43)
[2021-01-10] MEDS: ACETAMINOPHEN TAB 650MG DOSE (2X325MG) PO PRN (21:44)
[2021-01-11] MEDS: metroNIDAZOLE (FLAGYL) 500MG TABLET PO SCH ×3 (05:45→20:38)
[2021-01-11] MEDS: SODIUM CHLORIDE 0.9% INJ 10 ML SYR IV SCH ×2 (05:47→18:05)
[2021-01-11] MEDS: ACETAMINOPHEN TAB 650MG DOSE (2X325MG) PO PRN (05:48)
[2021-01-11 06:00] VITALS: BP 140/62
[2021-01-11 07:43] LABS: BASO % 0.8 % (0.0-1.0); EOS # 0.1 10^3/uL (0.0-0.5); EOS % 2.4 % (0.0-3.0); HEMOGLOBIN 8.9 g/dl (12.0-15.5); LYMPH # 1.1 10^3/uL (1.5-5.0); LYMPH % 22.4 % (24.0-44.0); MEAN CORPUSCULAR HEMOGLOBIN 24.2 pg (27.0-33.0); MEAN CORPUSCULAR HGB CONC 29.7 g/dl (32.0-36.5); MEAN CORPUSCULAR VOLUME 81.5 fl (80.0-96.0); MONO # 0.5 10^3/uL (0.0-0.8); MONO % 10.3 % (2.0-8.0); NEUTROPHILS # 3.2 10^3/uL (1.5-8.5); NEUTROPHILS % 63.7 % (36.0-66.0); PLATELET COUNT, AUTOMATED 330 10^3/uL (150-450); RED BLOOD COUNT 3.68 10^6/uL (4.00-5.40)
[2021-01-11 08:05] LABS: ALBUMIN 2.5 GM/DL (3.2-5.2); ALT/SGPT 14 U/L (12-78); BILIRUBIN,TOTAL 0.3 MG/DL (0.2-1.0); BLOOD UREA NITROGEN 10 MG/DL (7-18); C REACTIVE PROTEIN QUANTITATIV 0.81 MG/DL (0.00-0.30); CALCIUM LEVEL 8.3 MG/DL (8.8-10.2); CARBON DIOXIDE LEVEL 25 MEQ/L (21-32); CHLORIDE LEVEL 105 MEQ/L (98-107); CREATININE FOR GFR 0.76 MG/DL (0.55-1.30); GLOMERULAR FILTRATION RATE > 60.0 (>45); GLUCOSE, FASTING 216 MG/DL (70-100); POTASSIUM SERUM 4.2 MEQ/L (3.5-5.1); SODIUM LEVEL 135 MEQ/L (136-145); TOTAL PROTEIN 6.2 GM/DL (6.4-8.2)
[2021-01-11] MEDS: HumaLOG INSULIN (NovoLOG) PER UNIT SC SCH ×4 (09:07→20:27)
[2021-01-11] MEDS: ENOXAPARIN 40MG/0.4ML SYRINGE (J1650 PER 10MG) SC SCH (09:07)
[2021-01-11] MEDS: LEVEMIR (INSULIN DETEMIR) 1 UNITS/0.01ML SC SCH ×2 (09:08→20:38)
[2021-01-11] MEDS: ASPIRIN 81MG ENTERIC TABLET PO SCH (09:08)
[2021-01-11 09:16] VITALS: BP 124/80
[2021-01-11] MEDS: cefTRIAXone SOD 2 GM in D5W MINI-BAG PLUS 50 ML IV SCH (13:50)
[2021-01-11 14:13] VITALS: BP 126/78
[2021-01-11] MEDS: risperiDONE 0.5 MG TAB PO SCH (20:38)
[2021-01-11 20:43] VITALS: BP 122/68
[2021-01-11] MEDS: DOCUSATE SODIUM 100MG CAPSULE PO SCH (20:53)
[2021-01-12] MEDS: metroNIDAZOLE (FLAGYL) 500MG TABLET PO SCH ×2 (05:11→12:36)
[2021-01-12] MEDS: SODIUM CHLORIDE 0.9% INJ 10 ML SYR IV SCH (05:11)
[2021-01-12 06:00] VITALS: BP 120/53
[2021-01-12] MEDS: HumaLOG INSULIN (NovoLOG) PER UNIT SC SCH ×2 (07:30→12:36)
[2021-01-12] MEDS: LEVEMIR (INSULIN DETEMIR) 1 UNITS/0.01ML SC SCH (09:37)
[2021-01-12] MEDS: ENOXAPARIN 40MG/0.4ML SYRINGE (J1650 PER 10MG) SC SCH (09:38)
--- NOTE | 2021-01-12 09:46 | IPN ---
PROGRESS NOTE DATE: 01/11/2021 SUBJECTIVE: Digna seems to be doing much better today. She is very motivated. She is able to get up without assistance to the bathroom and back. She has had no nausea, vomiting, or diarrhea. No fevers or chills, cough or sore throat. She will off isolation from COVID exposure tomorrow and hopefully will be able to go home. She cleared PT. LABS: White count 5, hemoglobin 8.9, hematocrit 30, platelets 330, 63% neutrophils, 22% lymphocytes, 10% monocytes, ESR 72. Sodium 135, potassium 4.2, chloride 105, bicarb 25, BUN 10, creatinine 0.76, glucose 216, calcium 8.3, AST 6, ALT 14, alkaline phosphatase 76, CRP 0.81. Right foot culture had group B strep, Strep anginosus and Porphyromonas asaccharolytica. OBJECTIVE: Vital signs: Temperature is 97.9, pulse 76, respirations 18, blood pressure 126/78, O2 saturation 96% on room air. Heart: Normal S1, S2. No murmurs, rubs or gallops. Lungs are clear. No wheezes, rales or rhonchi. Abdomen: Obese, soft, nontender with ecchymosis. Extremities: +1 pitting edema bilaterally. Right heel with a large 9 x 6 cm decubitus ulcer with granulation tissue. No surrounding cellulitis. ASSESSMENT: Acute calcaneus osteomyelitis from a decubitus ulcer with polymicrobial infection. Patient doing well on IV Rocephin 2 gm daily and p.o. Flagyl. End of treatment will be on February 12 for a total of six weeks for osteomyelitis. PLAN: Number two COVID exposure off isolation tomorrow on 01/12. Plan to discharge the patient home on IV Rocephin 2 gm daily, with p.o. Flagyl 500 mg p.o. every 8 hours. The patient will also need to follow up [facility]
[2021-01-12] MEDS ORDERED: FLAG500T PO (13:51)
[2021-01-12] MEDS ORDERED: CEFT2INJ4 IV (14:24)
--- NOTE | 2021-01-12 14:31 | DS.PDOC ---
Discharge Summary General Date of Admission Jan 01, 2021 at 20:21 Date of Discharge 01/12/21 Discharge Summary PROCEDURES PERFORMED DURING STAY: [None]. DISCHARGE DIAGNOSES: #Right heel pressure ulceration with cellulitis #acute calcaneal osteomyelitis #DM #Peck's disease. #HTN #morbid obesity #Resting tremor #COVID-19 exposure on 01/01/21 - tested negative - completed quarantine COMPLICATIONS/CHIEF COMPLAINT: Cellulitis. HISTORY OF PRESENT ILLNESS: Mrs. Matos is a 60 year old female with Mateo's disease and diabetes mellitus who presents with weakness, malaise, fever, and erythema of right leg. She tells me that she generally becoming more bed bound. She has an ulcer on the back of her right heel which started a few months ago. She has her own float boot and reports compliance. She has been seeing Pauly Burger PA-C who has been debriding her ulcer. She was last seen by her on 12/25/2020 and started her on doxycycline for cellulitis around that area. Today, she was not feeling well. She had fever and chills at home and felt weaker than normal. In the ED, there was erythema coming up from her right foot to the bottom third of her right leg. X-ray of left foot demonstrates large decubitus ulcer over the posterior calcaneus. There is subcutaneous emphysema and soft tissue loss at the location. Workup was significant for a CRP of 7.21. Patient was admitted for cellulitis of the right foot that failed outpatient treatment. HOSPITAL COURSE: Right heel pressure ulceration with cellulitis and calcaneal osteomyelitis This is stage 4 decubiti of right heel due to pressure on heel from being bed bound status post bone debridement. cultures strep anginosus, strep agalactie, corynebacterium, anareobes antibiotics as per ID for 6 weeks. Ceftriaxone 2 gms and metronidazole 500mg tid. outpt follow up with Dr Cristopher Alcocer in 2 to 3 weeks after discharge. Diabetes mellitus. Levemir with sliding scale lispro insulin with meals and at bedtime. Peck's disease. Resting tremor Hypertension Continue lisinopril Morbid obesity limited mobility. PT eval. Hypomagnesemia. replaced. COVID-19 exposure on 01/01/21 asymptomatic quarantine until 01/12/21 - has stage 4 cancer and cannot provide her any care. DISCHARGE MEDICATIONS: Please see below. ALLERGIES: Please see below. PHYSICAL EXAMINATION ON DISCHARGE: VITAL SIGNS: Please see below. General Exam: Positive: Alert, Cooperative, No Acute Distress Eye Exam: Positive: Conjunctiva & lids normal, EOMI; Negative: Sclera icteric ENT Exam: Positive: Atraumatic, Mucous membr. moist/pink Neck Exam: Positive: Supple; Negative: thyromegaly Chest Exam: Positive: Clear to auscultation, Normal air movement Heart Exam: Positive: Rate Normal, Regular Rhythm, Normal S1, Normal S2; Negative: Murmurs, Rubs Abdomen Exam: Positive: Normal bowel sounds, Soft; Negative: Tenderness Extremity Exam: Negative: Clubbing, Cyanosis Skin Exam: Positive: Nl turgor and temperature; Negative: Rash, Breakdown Neuro Exam: Positive: Cranial Nerves 3-12 NL Psych Exam: Positive: Mental status NL, Mood NL, Oriented x 3 LABORATORY DATA: Please see below. ACTIVITY: [As tolerated]. DISCHARGE INSTRUCTIONS: 1. Follow up PCP in 3-5 days 2. Follow up with infectious disease in 7-10 days or as scheduled. 3. Follow up with wound care Dr. Nicholas in 3-5 days or as scheduled. DISCHARGE CONDITION: [Stable]. TIME SPENT ON DISCHARGE: 40 minutes. Vital Signs/I&Os Vital Signs Date Time Temp Pulse Resp B/P (MAP) Pulse Ox O2 Delivery O2 Flow Rate FiO2 01/12/21 06:00 96.6 73 19 120/53 (75) 97 Room Air I&O- Last 24 Hours up to 6 AM 01/12/21 06:00 Intake Total 1440 ml Output Total 0 ml Balance 1440 ml Laboratory Data Labs 24H Laboratory Tests 2 01/11/21 16:31: Bedside Glucose (Misc Panel) 158H 01/11/21 20:22: Bedside Glucose (Misc Panel) 169H 01/12/21 06:17: Bedside Glucose (Misc Panel) 69L 01/12/21 06:38: Bedside Glucose (Misc Panel) 77L 01/12/21 11:34: Bedside Glucose (Misc Panel) 118H FSBS Laboratory Tests Test 01/11/21 16:31 01/11/21 20:22 01/12/21 06:17 01/12/21 06:38 Range/Units Bedside Glucose (Misc Panel) 158 169 69 77 80-115 MG/DL Test 01/12/21 11:34 Range/Units Bedside Glucose (Misc Panel) 118 80-115 MG/DL Microbiology Microbiology 01/03/21 Gram Stain - Final, Complete 01/03/21 Surgical Biopsy Culture - Final, Complete Strep Agalactiae Group B Strep Anginosus Grp Corynebacterium Species 01/03/21 Anaerobic Culture - Final, Complete Porphyromonas Asaccharolytica 01/02/21 Urine Culture - Final, Complete Discharge Medications Scheduled Aspirin (Aspirin EC) 81 Mg Tablet.dr, 81 MG PO Q2D, (Reported) Ceftriaxone in Is-Osm Dextrose (Ceftriaxone 2 gm-D5w Bag) 2 Gm/50 Ml Piggyback, 1 INJ IV DAILY Clopidogrel Bisulfate (Clopidogrel) 75 Mg Tablet, 75 MG PO DAILY, (Reported) Docusate Sodium (Colace) 100 Mg Capsule, 100 MG PO QHS, (Reported) Insulin Glargine,Hum.rec.anlog (Lantus Solostar) 100 Unit/1 Ml Insuln.pen, 45 UNITS SC BID, (Reported) Lisinopril (Lisinopril) 20 Mg Tab, 20 MG PO QHS, (Reported) Metronidazole (Flagyl) 500 Mg Tablet, 500 MG PO Q8H Risperidone (Risperidone) 0.25 Mg Tablet, 0.25 MG PO QHS, (Reported) Allergies Coded Allergies: hydrochlorothiazide (Verified Allergy, Mild, 12/10/20) ROMI BOWDEN MD Jan 12, 2021 14:31
[2021-01-12] MEDS: cefTRIAXone SOD 2 GM in D5W MINI-BAG PLUS 50 ML IV SCH (14:41)
[2021-01-12] MEDS: SODIUM CHLORIDE 0.9% INJ 10 ML SYR IV PRN (15:45)
== END 2021-01-12 16:14 | disposition home health service (06) | DRG 503 ==
LOC: EDBD 16:14 → M ED 16:14 → M ED INP 20:21 → M MSPAV 23:30
PROVIDERS: ADMIT Internal Medicine; ATTEND Internal Medicine
PROC: 0QBL0ZZ Excision of Right Tarsal, Open Approach (ICD-10-PCS; principal; 2021-01-03 08:00)
PROC: 02HV33Z Insertion of Infusion Device into Superior Vena Cava, Percutaneous Approach (ICD-10-PCS; 2021-01-06)
DX: M86.171 Other acute osteomyelitis, right ankle and foot (principal); L89.614 Pressure ulcer of right heel, stage 4; G10 Huntington's disease; L97.419 Non-pressure chronic ulcer of right heel and midfoot with unspecified severity; L03.115 Cellulitis of right lower limb; Z68.41 Body mass index [BMI] 40.0-44.9, adult; I10 Essential (primary) hypertension; E11.51 Type 2 diabetes mellitus with diabetic peripheral angiopathy without gangrene; E78.2 Mixed hyperlipidemia; E83.42 Hypomagnesemia; E66.01 Morbid (severe) obesity due to excess calories; E11.621 Type 2 diabetes mellitus with foot ulcer; Z86.711 Personal history of pulmonary embolism; Z98.62 Peripheral vascular angioplasty status; Z79.82 Long term (current) use of aspirin; Z79.02 Long term (current) use of antithrombotics/antiplatelets; Z79.4 Long term (current) use of insulin; Z79.899 Other long term (current) drug therapy; Z20.822 Contact with and (suspected) exposure to COVID-19

== ENCOUNTER → 2021-01-18 | Outpatient (REF) | payer MEDICARE ==
[~2021-01-18] MED LIST changes: +CEFT2INJ4 IV; +CLOP75TA2 PO; +DOXY100T PO; +FLAG500T PO
[2021-01-18 15:08] LABS: HEMATOCRIT 33.7 % (36.0-47.0); HEMOGLOBIN 9.5 g/dl (12.0-15.5); MEAN CORPUSCULAR HEMOGLOBIN 23.8 pg (27.0-33.0); MEAN CORPUSCULAR HGB CONC 28.2 g/dl (32.0-36.5); MEAN CORPUSCULAR VOLUME 84.5 fl (80.0-96.0); PLATELET COUNT, AUTOMATED 311 10^3/uL (150-450); RED BLOOD COUNT 3.99 10^6/uL (4.00-5.40); WHITE BLOOD COUNT 7.2 10^3/uL (4.0-10.0)
[2021-01-18 15:26] LABS: ALBUMIN 2.8 GM/DL (3.2-5.2); ALT/SGPT 12 U/L (12-78); BILIRUBIN,TOTAL 0.2 MG/DL (0.2-1.0); BLOOD UREA NITROGEN 18 MG/DL (7-18); CALCIUM LEVEL 8.6 MG/DL (8.8-10.2); CARBON DIOXIDE LEVEL 27 MEQ/L (21-32); CHLORIDE LEVEL 101 MEQ/L (98-107); CREATININE FOR GFR 0.73 MG/DL (0.55-1.30); GLOMERULAR FILTRATION RATE > 60.0 (>45); GLUCOSE, FASTING 104 MG/DL (70-100); POTASSIUM SERUM 4.3 MEQ/L (3.5-5.1); SODIUM LEVEL 134 MEQ/L (136-145); TOTAL PROTEIN 6.3 GM/DL (6.4-8.2)
[2021-01-18 19:45] LABS: ERYTHROCYTE SEDIMENTATION RATE 47 mm/hr (0-30)
== END ==
LOC: M SHH 14:19 → M LAB REF 14:19
PROVIDERS: ATTEND Internal Medicine Infectious Disease
DX: L03.115 Cellulitis of right lower limb (principal); E11.621 Type 2 diabetes mellitus with foot ulcer; M86.179 Other acute osteomyelitis, unspecified ankle and foot

== ENCOUNTER → 2021-01-25 | Outpatient (REF) | payer MEDICARE ==
[2021-01-25 15:18] LABS: HEMATOCRIT 34.4 % (36.0-47.0); HEMOGLOBIN 10.3 g/dl (12.0-15.5); MEAN CORPUSCULAR HEMOGLOBIN 25.2 pg (27.0-33.0); MEAN CORPUSCULAR HGB CONC 29.9 g/dl (32.0-36.5); MEAN CORPUSCULAR VOLUME 84.3 fl (80.0-96.0); PLATELET COUNT, AUTOMATED 321 10^3/uL (150-450); RED BLOOD COUNT 4.08 10^6/uL (4.00-5.40); WHITE BLOOD COUNT 7.5 10^3/uL (4.0-10.0)
[2021-01-25 15:44] LABS: ALBUMIN 2.7 GM/DL (3.2-5.2); ALT/SGPT 13 U/L (12-78); BILIRUBIN,TOTAL 0.1 MG/DL (0.2-1.0); BLOOD UREA NITROGEN 19 MG/DL (7-18); C REACTIVE PROTEIN QUANTITATIV 0.67 MG/DL (0.00-0.30); CALCIUM LEVEL 8.6 MG/DL (8.8-10.2); CARBON DIOXIDE LEVEL 29 MEQ/L (21-32); CHLORIDE LEVEL 100 MEQ/L (98-107); GLOMERULAR FILTRATION RATE > 60.0 (>45); GLUCOSE, FASTING 154 MG/DL (70-100); POTASSIUM SERUM 4.8 MEQ/L (3.5-5.1); SODIUM LEVEL 134 MEQ/L (136-145); TOTAL PROTEIN 6.2 GM/DL (6.4-8.2)
[2021-01-25 15:52] LABS: ERYTHROCYTE SEDIMENTATION RATE 52 mm/hr (0-30)
== END ==
LOC: M SHH 14:56
PROVIDERS: ATTEND Internal Medicine Infectious Disease
DX: L03.115 Cellulitis of right lower limb (principal); E11.621 Type 2 diabetes mellitus with foot ulcer; M86.179 Other acute osteomyelitis, unspecified ankle and foot

== ENCOUNTER → 2021-02-01 | Outpatient (REF) | payer MEDICARE ==
[2021-02-01 14:37] LABS: HEMATOCRIT 35.2 % (36.0-47.0); HEMOGLOBIN 10.4 g/dl (12.0-15.5); MEAN CORPUSCULAR HGB CONC 29.5 g/dl (32.0-36.5); MEAN CORPUSCULAR VOLUME 84.6 fl (80.0-96.0); PLATELET COUNT, AUTOMATED 362 10^3/uL (150-450); RED BLOOD COUNT 4.16 10^6/uL (4.00-5.40); WHITE BLOOD COUNT 7.4 10^3/uL (4.0-10.0)
[2021-02-01 15:20] LABS: ERYTHROCYTE SEDIMENTATION RATE 46 mm/hr (0-30)
[2021-02-01 16:15] LABS: ALBUMIN 2.8 GM/DL (3.2-5.2); ALT/SGPT 12 U/L (12-78); BILIRUBIN,TOTAL 0.2 MG/DL (0.2-1.0); BLOOD UREA NITROGEN 20 MG/DL (7-18); CALCIUM LEVEL 8.8 MG/DL (8.8-10.2); CARBON DIOXIDE LEVEL 27 MEQ/L (21-32); CHLORIDE LEVEL 101 MEQ/L (98-107); CREATININE FOR GFR 0.67 MG/DL (0.55-1.30); GLOMERULAR FILTRATION RATE > 60.0 (>45); GLUCOSE, FASTING 107 MG/DL (70-100); POTASSIUM SERUM 4.5 MEQ/L (3.5-5.1); SODIUM LEVEL 135 MEQ/L (136-145); TOTAL PROTEIN 6.3 GM/DL (6.4-8.2)
== END ==
LOC: M SHH 14:22
PROVIDERS: ATTEND Internal Medicine Infectious Disease
DX: L03.115 Cellulitis of right lower limb (principal); E11.621 Type 2 diabetes mellitus with foot ulcer; M86.179 Other acute osteomyelitis, unspecified ankle and foot

== ENCOUNTER → 2021-02-08 | Outpatient (REF) | payer MEDICARE ==
[2021-02-08 12:13] LABS: HEMATOCRIT 37.8 % (36.0-47.0); MEAN CORPUSCULAR HEMOGLOBIN 24.9 pg (27.0-33.0); MEAN CORPUSCULAR HGB CONC 29.1 g/dl (32.0-36.5); MEAN CORPUSCULAR VOLUME 85.5 fl (80.0-96.0); PLATELET COUNT, AUTOMATED 350 10^3/uL (150-450); RED BLOOD COUNT 4.42 10^6/uL (4.00-5.40); WHITE BLOOD COUNT 6.8 10^3/uL (4.0-10.0)
[2021-02-08 12:31] LABS: ERYTHROCYTE SEDIMENTATION RATE 51 mm/hr (0-30)
[2021-02-08 12:43] LABS: ALBUMIN 2.8 GM/DL (3.2-5.2); ALT/SGPT 12 U/L (12-78); BILIRUBIN,TOTAL 0.3 MG/DL (0.2-1.0); BLOOD UREA NITROGEN 21 MG/DL (7-18); C REACTIVE PROTEIN QUANTITATIV 0.54 MG/DL (0.00-0.30); CALCIUM LEVEL 8.6 MG/DL (8.8-10.2); CARBON DIOXIDE LEVEL 29 MEQ/L (21-32); CHLORIDE LEVEL 104 MEQ/L (98-107); CREATININE FOR GFR 0.65 MG/DL (0.55-1.30); GLOMERULAR FILTRATION RATE > 60.0 (>45); GLUCOSE, FASTING 132 MG/DL (70-100); POTASSIUM SERUM 4.4 MEQ/L (3.5-5.1); SODIUM LEVEL 138 MEQ/L (136-145); TOTAL PROTEIN 6.5 GM/DL (6.4-8.2)
== END ==
LOC: M SHH 11:40
PROVIDERS: ATTEND Internal Medicine Infectious Disease
DX: L03.115 Cellulitis of right lower limb (principal); E11.621 Type 2 diabetes mellitus with foot ulcer; M86.179 Other acute osteomyelitis, unspecified ankle and foot

== ENCOUNTER → 2021-02-24 | Outpatient (REF) | payer MEDICARE, MEDICAID ==
[2021-02-24 14:35] LABS: BASO % 0.7 % (0.0-1.0); EOS # 0.1 10^3/uL (0.0-0.5); EOS % 1.7 % (0.0-3.0); HEMATOCRIT 37.8 % (36.0-47.0); HEMOGLOBIN 11.5 g/dl (12.0-15.5); LYMPH # 1.1 10^3/uL (1.5-5.0); LYMPH % 18.8 % (24.0-44.0); MEAN CORPUSCULAR HEMOGLOBIN 25.6 pg (27.0-33.0); MEAN CORPUSCULAR HGB CONC 30.4 g/dl (32.0-36.5); MONO # 0.5 10^3/uL (0.0-0.8); MONO % 7.8 % (2.0-8.0); NEUTROPHILS # 4.3 10^3/uL (1.5-8.5); NEUTROPHILS % 70.7 % (36.0-66.0); PLATELET COUNT, AUTOMATED 312 10^3/uL (150-450); WHITE BLOOD COUNT 6.1 10^3/uL (4.0-10.0)
[2021-02-24 14:58] LABS: ERYTHROCYTE SEDIMENTATION RATE 54 mm/hr (0-30)
[2021-02-24 20:50] LABS: BLOOD UREA NITROGEN 22 MG/DL (7-18); C REACTIVE PROTEIN QUANTITATIV 0.93 MG/DL (0.00-0.30); CARBON DIOXIDE LEVEL 28 MEQ/L (21-32); CHLORIDE LEVEL 101 MEQ/L (98-107); GLOMERULAR FILTRATION RATE > 60.0 (>45); GLUCOSE, FASTING 134 MG/DL (70-100); POTASSIUM SERUM 4.6 MEQ/L (3.5-5.1); SODIUM LEVEL 136 MEQ/L (136-145)
== END ==
LOC: M SHH 14:21
PROVIDERS: ATTEND Internal Medicine Infectious Disease
DX: M86.171 Other acute osteomyelitis, right ankle and foot (principal)

== ENCOUNTER → 2021-05-14 | Outpatient (REF) | payer MEDICARE, MEDICAID | LOC: M LAB REF 15:42 | PROVIDERS: ATTEND Surgery | DX: E11.621 Type 2 diabetes mellitus with foot ulcer (principal) ==

== ENCOUNTER → 2021-06-08 | Outpatient (POV) | payer MEDICARE, MEDICAID ==
[~2021-06-08] VITALS: Ht 170.2 cm; Wt 122.7 kg
[~2021-06-08] MED LIST changes: +ELIQ5TAB PO
[2021-06-08 12:50] VITALS: BP 162/90
--- NOTE | 2021-06-10 12:09 | IRPN ---
[facility] IR Progress Note IR Progress Note DATE: Jun 08, 2021 FOLLOW-UP: 60-year-old female with obesity, diabetes, hypertension, hyperlipidemia and Franklin's, follows up with me today for new and nonhealing left lower extremity heel ulcer. Patient is known to me. She had prior left lower extremity angiography performed by me, in September 2020, which demonstrated good inflow to the left leg. 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 She underwent proximal posterior tibial artery angioplasty but distally the posterior tibial artery was heavily calcified and could not be recannulated. Her left foot ulcer at that time healed up. A new ulcer has recurred in the left heel, over the past few months. She denies pain in the left lower extremity. ON EXAMINATION: Bilateral lower extremity edema. Color and temperature normal. Bilateral feet dressed and in heel float boots. IMPRESSION: 60-year-old female with diabetes, presents with recurrent nonhealing wound in the left heel. We know that patient has left lower extremity below-knee arterial disease, the main focus would be the posterior tibial artery given the location of the recurrent ulcer. This would require antegrade and possible retrograde attempt at recanalization. Given how heavily calcified this is distally, it may or may not be possible to open this up. Her anterior tibial artery and peroneal artery on the prior angiogram were patent. Her right lower extremity arterial supply on prior angiogram was good. We discussed the risks and benefits of left lower extremity angiography and inte rvention and patient is willing to proceed. We have scheduled the patient for left lower extremity angiography and intervention. Given bilateral lower extremity swelling, I will also order bilateral lower extremity venous reflux study. Cc Pauly Link Allergies Coded Allergies: hydrochlorothiazide (Verified Allergy, Mild, 12/10/20) VS,Fishbone, I+O VS, Fishbone, I+O Vital Signs Date Time Temp Pulse Resp B/P (MAP) Pulse Ox O2 Delivery O2 Flow Rate FiO2 06/08/21 12:50 97.6 105 20 162/90 (114) 100 Room Air RADHA NAVAS MD Jun 10, 2021 12:09
== END ==
LOC: M IRPOV 12:28
PROVIDERS: ATTEND Radiology Diagnostic Radiology
DX: I70.244 Atherosclerosis of native arteries of left leg with ulceration of heel and midfoot (principal); L97.429 Non-pressure chronic ulcer of left heel and midfoot with unspecified severity; E11.59 Type 2 diabetes mellitus with other circulatory complications; E66.9 Obesity, unspecified; E78.5 Hyperlipidemia, unspecified; I10 Essential (primary) hypertension; G10 Huntington's disease; R60.0 Localized edema; Z88.8 Allergy status to other drugs, medicaments and biological substances

== ENCOUNTER → 2021-06-23 | Outpatient (CLI) | payer MEDICARE, MEDICAID ==
[~2021-06-23] MED LIST changes: -ELIQ5TAB PO
--- NOTE | 2021-06-23 16:48 | REP ---
INDICATION: VENOUS HTN. COMPARISON: None. TECHNIQUE: Multiple ultrasonographic images of the deep venous structures of the bilateral lower extremity were obtained from the inguinal ligament to the ankle. Venous compression techniques, color doppler imaging, and augmentation techniques were also obtained where appropriate. As per the ACR guidelines the anterior tibial vein can not be effectively evaluated. Only compression techniques in the calf on the peroneal and posterior tibial veins was attempted/performed. FINDINGS: On the left: There is no abnormal echogenic material seen within any of the visualized deep venous structures that would suggest acute thrombosis. Coaptation is unremarkable throughout. Doppler interrogation shows an expected response to respiratory variability and augmentation in the thigh. Compression techniques in the calf showed no abnormality. The color flow images show what appears to be a normal vascular pattern throughout the thigh. On the right: There is extensive abnormal echogenic material seen from the common femoral vein to the popliteal vein inclusive. There is no increased flow during augmentation. Coaptation is unobtainable. Only a partial reflux study on the right was obtained due to the aforementioned findings consistent with deep vein thrombosis. No reflux was seen in the common femoral vein and an accessory greater saphenous vein was not present. No reflux was seen in the greater saphenous vein at any level. The AP dimension at the saphenofemoral junction is 11.1 mm. The AP dimension at the mid thigh 6.4 mm. The AP dimension at the knee is 7.5 mm. On the left: No reflux was seen in the common femoral vein Anterior accessory greater saphenous vein was not present No reflux was seen in any portion of the greater saphenous vein the AP dimension of which at the saphenofemoral junction is 9.1 mm, mid thigh 7.1 mm, knee 6.2 mm. No reflux was seen in any portion of the superficial femoral vein or popliteal vein. The lesser saphenous vein was not interrogated. IMPRESSION: 1. There is no ultrasonographic evidence of deep venous thrombosis involving any of the visualized deep venous structures of the left lower extremity as described above. No reflux was identified. Findings as described above. 1. There is deep vein thrombosis on the right as described above. Limited deep vein reflux study on the right as described above. <Electronically signed by Woodrow Banuelos > 06/23/21 [id number]
== END ==
LOC: M RAD 12:44
PROVIDERS: ATTEND Radiology Diagnostic Radiology
DX: I82.401 Acute embolism and thrombosis of unspecified deep veins of right lower extremity (principal)

== ENCOUNTER 2021-06-25 08:39 | Emergency (ER) | payer MEDICARE, MEDICAID ==
[~2021-06-25] VITALS: Ht 170.2 cm; Wt 122.7 kg
[2021-06-25 08:39] VITALS: BP 126/75
[~2021-06-25 08:39] MED LIST changes: +CLIN-250 PO; -CLIN300C6 PO
[2021-06-25 11:57] LABS: BASO % 0.4 % (0.0-1.0); EOS # 0.1 10^3/uL (0.0-0.5); EOS % 0.8 % (0.0-3.0); HEMATOCRIT 36.9 % (36.0-47.0); HEMOGLOBIN 11.6 g/dl (12.0-15.5); LYMPH # 1.4 10^3/uL (1.5-5.0); LYMPH % 18.5 % (24.0-44.0); MEAN CORPUSCULAR HEMOGLOBIN 26.1 pg (27.0-33.0); MEAN CORPUSCULAR HGB CONC 31.4 g/dl (32.0-36.5); MEAN CORPUSCULAR VOLUME 83.1 fl (80.0-96.0); MONO # 0.5 10^3/uL (0.0-0.8); MONO % 6.7 % (2.0-8.0); NEUTROPHILS # 5.6 10^3/uL (1.5-8.5); NEUTROPHILS % 73.3 % (36.0-66.0); PLATELET COUNT, AUTOMATED 331 10^3/uL (150-450); RED BLOOD COUNT 4.44 10^6/uL (4.00-5.40); WHITE BLOOD COUNT 7.6 10^3/uL (4.0-10.0)
[2021-06-25 12:09] LABS: INR 1.01; PROTHROMBIN TIME 13.7 SECONDS (12.7-14.5)
[2021-06-25 12:10] LABS: PARTIAL THROMBOPLASTIN TIME 30.9 SECONDS (25.9-37.0)
[2021-06-25 12:27] LABS: BLOOD UREA NITROGEN 17 MG/DL (7-18); CALCIUM LEVEL 9.3 MG/DL (8.8-10.2); CARBON DIOXIDE LEVEL 26 MEQ/L (21-32); CHLORIDE LEVEL 103 MEQ/L (98-107); CREATININE FOR GFR 0.85 MG/DL (0.55-1.30); GLOMERULAR FILTRATION RATE > 60.0 (>45); GLUCOSE, FASTING 93 MG/DL (70-100); POTASSIUM SERUM 4.5 MEQ/L (3.5-5.1); SODIUM LEVEL 136 MEQ/L (136-145)
[2021-06-25] MEDS ORDERED: ELIQ5TAB PO (13:27)
== END 2021-06-25 13:36 | disposition home or self-care (01) ==
LOC: M ED 08:39
DX: I82.411 Acute embolism and thrombosis of right femoral vein (principal); I25.10 Atherosclerotic heart disease of native coronary artery without angina pectoris; E11.9 Type 2 diabetes mellitus without complications; I10 Essential (primary) hypertension; Z79.01 Long term (current) use of anticoagulants; Z79.82 Long term (current) use of aspirin; Z79.4 Long term (current) use of insulin; Z79.899 Other long term (current) drug therapy; Z88.8 Allergy status to other drugs, medicaments and biological substances

== ENCOUNTER → 2021-07-21 | Outpatient (CLI) | payer MEDICARE, MEDICAID ==
[~2021-07-21] MED LIST changes: -CLIN-250 PO; +CLIN300C6 PO; +ELIQ5TAB PO; +ISOVUE-300 61% 50ML VIAL As Ordered ONE; +LIDOCAINE 1% MDV 20ML VIAL As Ordered ONE; +MIDAZOLAM INJ 2MG/2ML VIAL (J2250 PER 1MG) As Ordered ONE; +NS 1,000 ML IV SCH; +diphenhydrAMINE 50MG/ML VIAL (J1200) As Ordered ONE; +fentaNYL 100 MCG/2 ML INJECTION (J3010) As Ordered ONE
--- NOTE | 2021-07-21 07:33 | IRHP ---
[facility] IR Pre-Procedure H & P General Date of Service: Jul 21, 2021 Procedure: Same Day Surgery Interval History and Physical I have seen the patient and reviewed last H & P performed within 30 days. There is no significant interval change. History of Present Illness Chief Complaint The patient is a 61-year-old female admitted with a reason for visit of PAD. PRE-PROCEDURE DIAGNOSIS: PAD HEART: Normal rate. LUNGS: Normal breathing at rest. ASA Classification ASA Classification: III-Severe systemic dis. Mallampati Score: II NPO: Yes Problems with prior sedation: No Obstructive Sleep Apnea: No Plan moderate sedation Allergies Coded Allergies: hydrochlorothiazide (Verified Allergy, Mild, 12/10/20) Home Medications Scheduled Apixaban (Eliquis), 5 MG PO ASDIRECTED Aspirin (Aspirin EC), 81 MG PO Q2D, (Reported) Docusate Sodium (Colace), 100 MG PO QHS, (Reported) Insulin Glargine,Hum.rec.anlog (Lantus Solostar), 40 UNITS SC QAM, (Reported) Lisinopril (Lisinopril), 20 MG PO QHS, (Reported) Risperidone (Risperidone), 0.25 MG PO QHS, (Reported) RADHA NAVAS MD Jul 21, 2021 07:33
[2021-07-21 15:00] VITALS: BP 138/73
--- NOTE | 2021-07-22 15:19 | IRPON ---
IR Postoperative Note Date Of Procedure: Jul 21, 2021 Time Of Procedure: 16:00 IR Postoperative Note IR Left leg angiogram IR Left below-knee runoff arteriogram. IR Ultrasound-guided antegrade left common femoral artery access. IR Attempted left posterior tibial artery recanalization. IR Moderate sedation. Clinical Information:Nonhealing left lower extremity ulcer. Physician: Dr. Day. Procedure: The patient was advised of the benefits, risks, and alternatives of the procedure and informed consent was obtained. A time out was performed with verification of the patient's name, MRN, site of procedure, and type of procedure to be performed. The patient was positioned in the supine position on the angiographic table. The site was prepped and draped in the usual sterile fashion. Moderate sedation was performed by the physician, including the presence of an independent trained RN, who assisted in monitoring the patient's level of consciousness and physiological status. Following the administration of fentanyl and Versed, the physician spent 60 minutes of continuous [id number] time with the patient. A wine steward radiograph reveals calcified vasculature. Ultrasound of the left groin demonstrates patent left common femoral artery. Lidocaine was used for local anesthesia. The left common femoral artery was accessed antegrade, under ultrasound guidance, with a microintroducer set. A short 0.018" [place] wire was inserted under fluoroscopy guidance, and the needle was exchanged for a 4 Fr microintroducer sheath. The guidewire and dilator were removed, and a 0.035" Bentson wire was advanced under fluoroscopic guidance, and placed into superficial femoral artery. A 6 Fr sheath was placed over the wire. A left leg angiogram was performed. This demonstrates patent superficial femoral artery. Patent popliteal artery. Patent anterior tibial and peroneal artery. Patent takeoff of the posterior tibial artery. Angiography further down the left leg was performed and this demonstrates, occluded proximal, mid and distal posterior tibial artery. Patent anterior tibial artery coursing into the foot. Patent dorsalis pedis. Patent peroneal artery to the ankle. Collaterals from the distal peroneal artery supply collaterals to the calcaneal and plantar branches. Severe microvascular disease in the left foot. Incomplete pedal loop. A 4 Slovenian glide cath was advanced over the wire, and used under fluoroscopy guidance, to catheterize the popliteal artery. A Glidewire was advanced through the Glidecath, and used under fluoroscopy guidance to catheterize the distal popliteal artery. Intermittent injection of contrast confirmed intraluminal catheterization. The catheter was removed over the wire. An 035 [place] catheter was advanced over the wire, and used under fluoroscopic guidance, to catheterize the takeoff of the posterior tibial artery. An angiogram was performed and this demonstrates successful catheterization of the takeoff of the posterior tibial artery. There is complete occlusion of the proximal and mid posterior tibial artery. There is a hypertrophied collateral vessel, arising off the proximal takeoff of the posterior tibial artery, which courses laterally. The catheter in conjunction with multiple wires, was used to try to recanalize the occluded left posterior tibial artery. This proved difficult due to the hypertrophied collateral vessel arising off the origin of the posterior tibial artery. After multiple attempts, the catheter in conjunction with the wire, was used to successfully catheterize proximal posterior tibial artery. Catheterization to the mid posterior tibial artery was possible. Injection of contrast however, demonstrated extravasation from the mid posterior tibial artery and further distal catheterization of the posterior tibial artery was not possible. The catheter was then retracted and used under fluoroscopy guidance, to catheterize the peroneal artery. An angiogram was performed and this demonst rates preserved antegrade flow in the peroneal artery and reflux flow in the hypertrophied collateral arising off the tibioperoneal trunk and the anterior tibial artery. No further significant extravasation from recanalized point of the posterior tibial artery. Catheter, wire and sheath were removed, pressure held and hemostasis achieved. A sterile dressing was applied to the site. The patient tolerated the procedure well and was returned to the PRU in stable condition. EBL: < 5 mL. Complications:None. Impression: 1. Left leg angiogram demonstrates patent distal SFA and popliteal artery. Patent anterior tibial artery and peroneal artery to the left foot. Occluded proximal, mid and distal left posterior tibial artery. 2. Severe microvascular disease in the left foot. 2. Unsuccessful antegrade attempt at left posterior tibial artery recanalization. Any further attempts at posterior tibial artery recanalization is likely to be futile. Patient does have significant microvascular disease within the left foot contributing to nonhealing ulcer. Thank you for this referral. Cc RADHA Car MD Jul 22, 2021 15:19
== END ==
LOC: M IRPRO 06:53
PROVIDERS: ATTEND Radiology Diagnostic Radiology
DX: I70.249 Atherosclerosis of native arteries of left leg with ulceration of unspecified site (principal); L97.929 Non-pressure chronic ulcer of unspecified part of left lower leg with unspecified severity; Z79.4 Long term (current) use of insulin; Z79.82 Long term (current) use of aspirin; Z79.899 Other long term (current) drug therapy; Z88.8 Allergy status to other drugs, medicaments and biological substances
CPT/HCPCS: 36247; 75630; 75774; 99152; 99153; C1769; C1887; C1894; J1200; J1644; J2250; J3010; Q9967

== ENCOUNTER → 2021-08-10 | Outpatient (POV) | payer MEDICARE, MEDICAID ==
[~2021-08-10] VITALS: Ht 170.2 cm; Wt 122.7 kg
[~2021-08-10] MED LIST changes: -ISOVUE-300 61% 50ML VIAL As Ordered ONE; -LIDOCAINE 1% MDV 20ML VIAL As Ordered ONE; -MIDAZOLAM INJ 2MG/2ML VIAL (J2250 PER 1MG) As Ordered ONE; -NS 1,000 ML IV SCH; -diphenhydrAMINE 50MG/ML VIAL (J1200) As Ordered ONE; -fentaNYL 100 MCG/2 ML INJECTION (J3010) As Ordered ONE
[2021-08-10 15:23] VITALS: BP 140/78
--- NOTE | 2021-08-12 11:45 | IRPN ---
[facility] IR Progress Note IR Progress Note DATE: Aug 10, 2021 FOLLOW-UP: Status post left lower extremity angiography. Patient doing well. Denies any fevers, chills or pain at access site. ON EXAMINATION: Left groin access site healed. No bruising, tenderness or pulsatile mass. IMPRESSION: Doing well status post left lower extremity angiography. No further left lower extremity arterial intervention planned. Thank you for this referral Allergies Coded Allergies: hydrochlorothiazide (Verified Allergy, Mild, 12/10/20) VS,Fishbone, I+O VS, Fishbone, I+O Vital Signs Date Time Temp Pulse Resp B/P (MAP) Pulse Ox O2 Delivery O2 Flow Rate FiO2 08/10/21 15:23 97.8 104 20 140/78 (98) 98 Room Air RADHA NAVAS MD Aug 12, 2021 11:45
== END ==
LOC: M IRPOV 15:20
PROVIDERS: ATTEND Radiology Diagnostic Radiology
DX: Z48.812 Encounter for surgical aftercare following surgery on the circulatory system (principal)

== ENCOUNTER → 2021-08-24 | Outpatient (REF) | payer MEDICARE, MEDICAID ==
[~2021-08-24] MED LIST changes: +CLIN-250 PO; -CLIN300C6 PO; +[UNRECOGNIZED DRUG - SUPPLY]
[2021-08-24 16:20] LABS: BASO # 0.1 10^3/uL (0.0-0.2); BASO % 0.6 % (0.0-1.0); EOS # 0.2 10^3/uL (0.0-0.5); HEMATOCRIT 36.6 % (36.0-47.0); HEMOGLOBIN 11.1 g/dl (12.0-15.5); LYMPH # 1.8 10^3/uL (1.5-5.0); LYMPH % 22.8 % (24.0-44.0); MEAN CORPUSCULAR HEMOGLOBIN 25.4 pg (27.0-33.0); MEAN CORPUSCULAR HGB CONC 30.3 g/dl (32.0-36.5); MEAN CORPUSCULAR VOLUME 83.8 fl (80.0-96.0); MONO # 0.6 10^3/uL (0.0-0.8); MONO % 8.1 % (2.0-8.0); NEUTROPHILS # 5.3 10^3/uL (1.5-8.5); NEUTROPHILS % 66.2 % (36.0-66.0); PLATELET COUNT, AUTOMATED 358 10^3/uL (150-450); RED BLOOD COUNT 4.37 10^6/uL (4.00-5.40)
[2021-08-24 16:49] LABS: ALBUMIN 3.2 GM/DL (3.2-5.2); ALT/SGPT 14 U/L (12-78); BILIRUBIN,TOTAL 0.3 MG/DL (0.2-1.0); BLOOD UREA NITROGEN 28 MG/DL (7-18); CALCIUM LEVEL 9.4 MG/DL (8.8-10.2); CARBON DIOXIDE LEVEL 28 MEQ/L (21-32); CHLORIDE LEVEL 102 MEQ/L (98-107); CHOLESTEROL LEVEL 146 MG/DL (<200); CHOLESTEROL RISK RATIO 2.862 (<5); CREATININE FOR GFR 0.94 MG/DL (0.55-1.30); GLOMERULAR FILTRATION RATE > 60.0 (>45); GLUCOSE, FASTING 152 MG/DL (70-100); HDL CHOLESTEROL 51 MG/DL (>40); LDL CHOLESTEROL 83 MG/DL (<100); NON-HDL-C 95 MG/DL; POTASSIUM SERUM 4.6 MEQ/L (3.5-5.1); SODIUM LEVEL 134 MEQ/L (136-145); TRIGLYCERIDES LEVEL 61 MG/DL (<150)
[2021-08-24 16:58] LABS: MALB URINE SIEMENS 7.4 MG/L; MAU/CREAT RATIO 5.2 MCG/MG (0.0-30.0)
[2021-08-25 07:44] LABS: IRON (FE) 37 UG/DL (50-170)
[2021-08-25 09:51] LABS: FOLATE 7.8 NG/ML (>5.4); VITAMIN B12 LEVEL 406 PG/ML (247-911)
== END ==
LOC: M SFHCCLAY 10:05
PROVIDERS: ATTEND Family Medicine
DX: E11.621 Type 2 diabetes mellitus with foot ulcer (principal); I82.511 Chronic embolism and thrombosis of right femoral vein; Z23 Encounter for immunization
CPT/HCPCS: 80053; 80061; 82043; 82607; 82746; 83036; 83540; 85025; 90682; 90732; G0008; G0009; G0463

== ENCOUNTER → 2021-08-25 | Outpatient (REF) | payer MEDICARE, MEDICAID ==
[~2021-08-25] MED LIST changes: -CLIN-250 PO; +CLIN300C6 PO; -[UNRECOGNIZED DRUG - SUPPLY]
== END ==
LOC: M SFHCCLAY 07:13
PROVIDERS: ATTEND Family Medicine
DX: D64.9 Anemia, unspecified (principal)

== ENCOUNTER 2021-09-27 09:45 | Emergency (ER) | payer MEDICARE, MEDICAID ==
[~2021-09-27] VITALS: Ht 170.2 cm; Wt 122.7 kg
[~2021-09-27 09:45] MED LIST changes: +CLIN-250 PO; -CLIN300C6 PO
--- OUTSIDE RECORDS SUMMARY | 2021-09-27 11:01 | CCD ---
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 Active confirmed 035816746 Problem Non-pressure chronic ulcer o f right 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 L97.411 Active confirmed 017632321 Problem Type 2 diabetes mellitus with foot ulcer E11.621 Active confirmed 925973827 Problem Onychomycosis of toenail B35.1 Active confirmed 950849243 Problem Non-pressure chronic ulcer o f left heel and midfoot with fat layer exposed L97.422 Active confirmed 510939875 Problem Type 2 diabetes mellitus with other specified complication E11.69 Active confirmed 969594328 Problem Tinea unguium B35.1 Active confirmed 158208 005 Problem 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 Active confirmed 772726284 Problem Mateo's disease G10 Active confirmed 29594980 Problem Acute osteomyelitis of right calcaneus M86.171 A ctive confirmed 446285812 Problem Non-pressure chronic ulcer o f other part of left foot with fat layer exposed L97.522 Active confirmed 326788819 Problem Essential hypertension I10 Active confirmed 90081534 Problem Breast cancer screening by mammogram Z12.31 Act ronna confirmed 907863917 Problem Huntingtons chorea G10 Active confirmed 5 2587291 Problem Chronic deep vein thrombosis (DVT) of femoral vein of right lower extremity I82.511 Active confirmed [id number] Problem Essential (primary) hypertension I10 Active conf irmed 72506624 ALLERGIES Allergen (clinical drug ingredient) Drug/Non Drug Allergy do cumented on EMR Reaction Allergy Type Onset Date Status hydrochlorothiazide Hydrochlorothiazide Dizziness Drug Allergy Active ENCOUNTERS from 1959 to 2021-09-23 Encounter Location Date Provider Diagnosis [facility] [address] [facility] [phone] [place] [address] Sep, Pauly Burger Type 2 diabetes mellitus wit h foot ulcer E11.621 ; Non- pressure chronic ulcer of left heel and midfoot with fat layer exposed L97.422 and Non-pressure chronic ulcer of other part of left foot with fat layer exposed L97.522 IMMUNIZATIONS Vaccine Route Administration Date Status /Mimosa COVID-19 (given elsewhere) SA RS-COV-2 vaccine, vector non- replicating, recombinant spike protein-Ad26, preservative free, 0.5 mL Unknown March 11, 2021 Administered Influenza 18 yrs & older Flublok IM Intramuscular Aug 24, 2021 Administered Influenza 18 yrs & older Flublok Unknown Aug 21, 2020 Others Pneumococcal Adult 0.5mL Pneumovax 23 IM Intramuscular Aug 24 Administered TDAP 0.5mL (Boostrix) Unknown Aug 02, 2011 Administer ed Hepatitis B Ped & Adol 0.5mL Engerix-B Unknown Aug 03, 2011 Administered Influenza 6mo & up Fluzone IM Intramuscular Aug 26, 2011 Admi nistered Influenza 6mo & up Fluzone IM Intramuscular Aug 11, 2010 Admi nistered SOCIAL HISTORY Tobacco Use: Social History Observation Description Date Details (start date - stop date) Never Smoker Sex Assigned At : Social History Observation Description Sex Assigned At Unknown Sexual Hx: Question Answer Notes Had sex in the last 12 months (vaginal, oral, or anal)? No Have you ever had an STD? No Alcohol Screening: Question Answer Notes Did you have a drink containing alcohol in the past year? No Points 0 Interpretation Negative Tobacco Use: Question Answer Notes Are you a: never smoker never smoker REASON FOR REFERRAL No Information VITAL SIGNS Weight 273 lbs Sep, Weight-kg 123.83 kg Sep, Height 5'5 3/4" in Sep, BMI 44.39 kg/m2 Sep, Heart Rate 105 /min Sep, Respiratory Rate 20 /min Sep, Temperature 97.2 degrees Fahrenheit Sep, Oximetry 100 Sep, MEDICATIONS Medication SIG (Take, Route, Frequency, Duration) Notes Start Da te End Date Status Dulcolax Balance 1200 mg soft chews Not-Taking SM Aspirin Adult Low Strength 81 MG TAKE ONE TABLET BY MOUTH EVERY DAY Oral every other day Active Lantus 100 UNIT/ML 45 units Subcutaneous twice daily for 90 days Active Lisinopril 10 mg 1 tablet Orally Once a day Active Glucostix glucose strip 1 strip daily Apr, Active Cefadroxil 500 MG 2 capsules Orally daily for 10 day(s) Sep, Active DOK 100 MG 1 cap Orally Once a day A ctive Duricef 500 mg 2 tablets oral Daily for 10 day(s) Not-Taking Clopidogrel Bisulfate 75 MG TAKE ONE TABLET BY MOUTH EVERY DAY Oral for 90 Not-Taking Eliquis 5 MG 1 tab Orally bid Active risperiDONE 0.25 MG 1 tab Orally Once a day Active PROCEDURES from 1959 to 2021-09-23 Procedure Date Ordered Result Body Site Medication: 4% Lidocaine topical cream (Anecream) 30 gm N/A RESULTS No Results REASON FOR VISIT BLE Wounds MEDICAL (GENERAL) HISTORY Type Description Date Medical History hypertension Medical History diabetes mellitus Medical History mixed hyperlipidemia Medical History pulmonary embolus Medical History Dr Tigist weber Medical History R LE DVT Surgical History 1978 & 1981 Surgical History gallbladder 1982 Surgical History right breast biopsy, Dr Pink, benign 2 014 Surgical History LLE angioplasty 09/17/2020 Surgical History right heel debridement 01/03/21 Surgical History LLE angioplasty 07/20/21 Hospitalization History pulmonary emboli 02/20/2010 Hospitalization History LEFT FOOT WOUND 05/2020 Hospitalization History rt heel wound 01/01/21-01/12/21 Goals Section No Information Health Concerns No Information MEDICAL EQUIPMENT No Information MENTAL STATUS No Information FUNCTIONAL STATUS No Information ASSESSMENTS Encounter Date Diagnosis Assessment Notes Treatment Notes Treatm ent Clinical Notes Sep, Type 2 diabetes mellitus with foot ulcer (ICD-10 - E11.621) Dressing changes 3x a week. The dressing should follow those documented in the procedure note. paula lot: [id number] exp:07/04Sep, Non-pressure chronic ulcer o f left heel and midfoot with fat layer exposed (ICD-10 - L97.422) Sep, Non-pressure chronic ulcer o f other part of left foot with fat layer exposed (ICD-10 - L97.522) PLAN OF TREATMENT Medication Medication Name Sig Start Date Stop Date Cefadroxil 500 MG 2 capsules Orally daily for 10 day(s) Sep, Treatment Notes Assessment Notes Clinical Notes Type 2 diabetes mellitus with foot ulcer Dressing javier ges 3x a week. The dressing should follow those documented in the procedure note. paula lot: [id number] exp:07/04 Next Appt Details 1 Week Reason: Provider Name:Pauly Burger, 09-24 02:15:00 PM, [address], , [place], [address], Provider Name:Pauly Burger, 10-01 02:00:00 PM, [address], , [place], [address], Provider Name:Jan Raya, 2021-11-25 09 :30:00 AM, [address] , , [place], [address], Insurance Providers Payer Name Payer Address Payer Phone Insured Name Patient Relati onship to Insured Coverage Start Date Coverage End Date MEDICARE COMPLETE [place] [address] [address] [facility] [phone] MARCELL MATOS MEDICAID [facility] [employer] [address] [facility] [address] MARCELL MATOS
--- OUTSIDE RECORDS SUMMARY | 2021-09-27 11:01 | CCD ---
Author Author [facility] Organization [facility] Address Unknown Phone Unavailable Care Team Providers Care County Surveyor Name Role Phone Raya, Jan Unavailable PROBLEMS ALLERGIES ENCOUNTERS from 1960 to 2021-09-25 IMMUNIZATIONS SOCIAL HISTORY REASON FOR REFERRAL No Information VITAL SIGNS MEDICATIONS PROCEDURES No Information RESULTS No Results REASON FOR VISIT MEDICAL (GENERAL) HISTORY Goals Section Health Concerns MEDICAL EQUIPMENT No Information MENTAL STATUS FUNCTIONAL STATUS ASSESSMENTS PLAN OF TREATMENT Insurance Providers
--- OUTSIDE RECORDS SUMMARY | 2021-09-27 11:01 | CCD ---
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 Active confirmed 956382803 Problem Non-pressure chronic ulcer o f right 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 L97.411 Active confirmed 851714172 Problem Type 2 diabetes mellitus with foot ulcer E11.621 Active confirmed 759816413 Problem Onychomycosis of toenail B35.1 Active confirmed 647559710 Problem Non-pressure chronic ulcer o f left heel and midfoot with fat layer exposed L97.422 Active confirmed 456104267 Problem Type 2 diabetes mellitus with other specified complication E11.69 Active confirmed 295120444 Problem Tinea unguium B35.1 Active confirmed 525931 005 Problem 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 Active confirmed 410345066 Problem Mateo's disease G10 Active confirmed 70934273 Problem Acute osteomyelitis of right calcaneus M86.171 A ctive confirmed 862012180 Problem Non-pressure chronic ulcer o f other part of left foot with fat layer exposed L97.522 Active confirmed 475010709 Problem Essential hypertension I10 Active confirmed 37674150 Problem Breast cancer screening by mammogram Z12.31 Act ronna confirmed 350677001 Problem Huntingtons chorea G10 Active confirmed 5 2965793 Problem Chronic deep vein thrombosis (DVT) of femoral vein of right lower extremity I82.511 Active confirmed 132894744798265 Problem Essential (primary) hypertension I10 Active conf irmed 60709057 ALLERGIES Allergen (clinical drug ingredient) Drug/Non Drug Allergy do cumented on EMR Reaction Allergy Type Onset Date Status hydrochlorothiazide Hydrochlorothiazide Dizziness Drug Allergy Active ENCOUNTERS from 1960 to 2021-09-07 Encounter Location Date Provider Diagnosis [facility] [address] [facility] [phone] [place] [address] 15 Aug, 2021 Pauly Burger Type 2 diabetes mellitus wit h foot ulcer E11.621 ; Non- pressure chronic ulcer of left heel and midfoot with fat layer exposed L97.422 and Non-pressure chronic ulcer of other part of left foot with fat layer exposed L97.522 IMMUNIZATIONS Vaccine Route Administration Date Status Influenza 18 yrs & older Flublok IM Intramuscular Aug 24, 2021 Administered Gravity Jack/PostalGuard COVID-19 (given elsewhere) SA RS-COV-2 vaccine, vector [...] No Information VITAL SIGNS Weight 273 lbs 15 Aug,1 Height 5'5 3/4" in Aug, BMI 44.39 kg/m2 Aug, Heart Rate 115 /min Aug, Respiratory Rate 20 /min Aug, Temperature 97.9 degrees Fahrenheit Aug, Oximetry 100 Aug, Blood pressure systolic 153 mm Hg Aug, Blood pressure diastolic 64 mm Hg Aug, MEDICATIONS Medication SIG (Take, Route, Frequency, Duration) Notes Start Da te End Date Status Eliquis 5 MG 1 tab Orally bid Active risperiDONE 0.25 MG 1 tab Orally Once a day Active Lisinopril 10 mg 1 tablet Orally Once a day Active SM Aspirin Adult Low Strength 81 MG TAKE ONE TABLET BY MOUTH EVERY DAY Oral every other day Active DOK 100 MG 1 cap Orally Once a day A ctive Lantus 100 UNIT/ML 45 units Subcutaneous twice daily for 90 days Active Clopidogrel Bisulfate 75 MG TAKE ONE TABLET BY MOUTH EVERY DAY Oral for 90 Not-Taking Duricef 500 mg 2 tablets oral Daily for 10 day(s) Not-Taking Dulcolax Balance 1200 mg soft chews Not-Taking Glucostix glucose strip 1 strip daily Apr, Active PROCEDURES from 1959 to 2021-09-07 Procedure Date Ordered Result Body Site Medication: 4% Lidocaine topical cream (Anecream) 5gm 2021-08-27 N/A RESULTS No Results REASON FOR VISIT [...] Notes Treatment Notes Treatm ent Clinical Notes Aug, Type 2 diabetes mellitus with foot ulcer (ICD-10 - E11.621) Dressing changes 3x a week. The dressing should follow those documented in the procedure note. paula lot: [id number] exp:07/04Aug, Non-pressure chronic ulcer o f left heel and midfoot with fat layer exposed (ICD-10 - L97.422) Aug, Non-pressure chronic ulcer o f other part of left foot with fat layer exposed (ICD-10 - L97.522) PLAN OF TREATMENT Medication Medication Name Sig Start Date Stop Date Lantus 100 UNIT/ML 45 units Subcutaneous twice daily for 90 days Treatment Notes Assessment Notes Clinical Notes Type 2 diabetes mellitus with foot ulcer Dressing javier ges 3x a week. The dressing should follow those documented in the procedure note. vasponce lot: [id number] exp:07/04 Next Appt Details 2 Weeks Reason: Provider Name:Pauly Burger, 09-10 02:15:00 PM, [address], , [place], [address], Provider Name:Jan Raya, 2021-11-25 09 :30:00 AM, [address] , , [place], [address], Insurance Providers Payer Name Payer Address Payer Phone Insured Name Patient Relati onship to Insured Coverage Start Date Coverage End Date MEDICARE COMPLETE [facility] [address] [address] [facility] [phone] MARCELL MATOS MEDICAID [employer] [address] [facility] [address] MARCELL MATOS
--- OUTSIDE RECORDS SUMMARY | 2021-09-27 11:01 | CCD ---
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 Active confirmed 742366222 Problem Non-pressure chronic ulcer o f right 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 L97.411 Active confirmed 539836386 Problem Type 2 diabetes mellitus with foot ulcer E11.621 Active confirmed 047264652 Problem Onychomycosis of toenail B35.1 Active confirmed 542385744 Problem Non-pressure chronic ulcer o f left heel and midfoot with fat layer exposed L97.422 Active confirmed 198195886 Problem Type 2 diabetes mellitus with other specified complication E11.69 Active confirmed 031320052 Problem Tinea unguium B35.1 Active confirmed 027922 005 Problem 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 Active confirmed 404369505 Problem Accomack's disease G10 Active confirmed 45110972 Problem Acute osteomyelitis of right calcaneus M86.171 A ctive confirmed 831137400 Problem Non-pressure chronic ulcer o f other part of left foot with fat layer exposed L97.522 Active confirmed 880554334 Problem Essential hypertension I10 Active confirmed 36649155 Problem Breast cancer screening by mammogram Z12.31 Act ronna confirmed 806929305 Problem Huntingtons chorea G10 Active confirmed 5 8715782 Problem Chronic deep vein thrombosis (DVT) of femoral vein of right lower extremity I82.511 Active confirmed 930485303646081 Problem Essential (primary) hypertension I10 Active conf irmed 72662118 ALLERGIES Allergen (clinical drug ingredient) Drug/Non Drug Allergy do cumented on EMR Reaction Allergy Type Onset Date Status hydrochlorothiazide Hydrochlorothiazide Dizziness Drug Allergy Active ENCOUNTERS from 1960 to 2021-08-31 Encounter Location Date Provider Diagnosis [facility] [address] [phone] [place] [address] 18 Aug, 2021 Jan Raya Type 2 diabetes mellitus with foot ulcer E11.621 IMMUNIZATIONS Vaccine Route Administration Date Status Rx Systems PF/Super Clean [employer] COVID-19 (given elsewhere) SA RS-COV-2 vaccine, vector non- replicating, recombinant spike protein-Ad26, preservative free, 0.5 mL Unknown March 11, 2021 Administered Influenza 18 yrs & older Flublok IM Intramuscular Aug 24, 2021 Administered Influenza 18 yrs & older Flublok Unknown Aug 21, 2020 Others Pneumococcal Adult 0.5mL Pneumovax 23 IM Intramuscular Aug 24 021 Administered TDAP 0.5mL (Boostrix) Unknown Aug 02, [...] strip 1 strip daily Apr, Active PROCEDURES No Information RESULTS No Results REASON FOR VISIT script MEDICAL (GENERAL) HISTORY Type Description Date Medical [...] mellitus with foot ulcer (ICD-10 - E11.621) PLAN OF TREATMENT Medication Medication Name Sig Start Date Stop Date Lantus 100 UNIT/ML 45 units Subcutaneous twice daily for 90 days Next Appt Details Provider Name:Pauly Burger, 09-10 02:15:00 PM, [address], , [place], [address], Provider Name:Jan Raya, 2021-11-25 09 :30:00 AM, [address], , [place], [address], Insurance Providers Payer Name Payer Address Payer Phone Insured Name Patient Relati onship to Insured Coverage Start Date Coverage End Date MEDICAID Personal [employer] [address] [place] [id number] MARCELL MATOS MEDICARE COMPLETE [facility] [address] [address] [facility] [address] MARCELL MATOS self
--- OUTSIDE RECORDS SUMMARY | 2021-09-27 11:02 | CCD ---
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 Active confirmed 966138008 Problem Non-pressure chronic ulcer o f right 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 L97.411 Active confirmed 936787467 Problem Type 2 diabetes mellitus with foot ulcer E11.621 Active confirmed 241540700 Problem Onychomycosis of toenail B35.1 Active confirmed 229036415 Problem Non-pressure chronic ulcer o f left heel and midfoot with fat layer exposed L97.422 Active confirmed 748408994 Problem Type 2 diabetes mellitus with other specified complication E11.69 Active confirmed 987878676 Problem Tinea unguium B35.1 Active confirmed 562316 005 Problem 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 Active confirmed 844634451 Problem Mateo's disease G10 Active confirmed 52330662 Problem Acute osteomyelitis of right calcaneus M86.171 A ctive confirmed 046297563 Problem Non-pressure chronic ulcer o f other part of left foot with fat layer exposed L97.522 Active confirmed 681449384 Problem Essential hypertension I10 Active confirmed 16282556 Problem Breast cancer screening by mammogram Z12.31 Act ronna confirmed 972722549 Problem Huntingtons chorea G10 Active confirmed 5 0006381 Problem Chronic deep vein thrombosis (DVT) of femoral vein of right lower extremity I82.511 Active confirmed 390039244298329 Problem Essential (primary) hypertension I10 Active conf irmed 33432599 ALLERGIES Allergen (clinical drug ingredient) Drug/Non Drug Allergy do cumented on EMR Reaction Allergy Type Onset Date Status hydrochlorothiazide Hydrochlorothiazide Dizziness Drug Allergy Active ENCOUNTERS from 1960 to 2021-08-26 Encounter Location Date Provider Diagnosis [facility] [address] [phone] [place] [address] 08 Aug, 2021 Pauly Burger Type 2 diabetes mellitus wit h foot ulcer E11.621 ; Non- pressure chronic ulcer of left heel and midfoot with fat layer exposed L97.422 ; Non-pressure chronic ulcer of right heel and midfoot with necrosis of bone L97.414 and Non-pressure chronic ulcer of other part of left foot with fat layer exposed L97.522 IMMUNIZATIONS Vaccine Route Administration Date Status J/Neuralieve COVID-19 (given elsewhere) SA RS-COV-2 vaccine, vector [...] FOR REFERRAL No Information VITAL SIGNS Weight 275 lbs Aug, Height 5'5 3/4" in Aug, BMI 44.72 kg/m2 Aug, Heart Rate 94 /min Aug, Respiratory Rate 18 /min Aug, Temperature 98.1 degrees Fahrenheit Aug, Oximetry 99 Aug, Blood pressure systolic 155 mm Hg Aug, Blood pressure diastolic 67 mm Hg Aug, MEDICATIONS Medication SIG (Take, Route, Frequency, Duration) Notes Start Da te End Date Status Glucostix glucose strip 1 strip daily Apr, Active Lisinopril 10 mg 1 tablet Orally Once a day Active Eliquis 5 MG 1 tab Orally bid Active Dulcolax Balance 1200 mg soft chews Not-Taking risperiDONE 0.25 MG 1 tab Orally Once a day Active DOK 100 MG 1 cap Orally Once a day A ctive Lantus 100 UNIT/ML 45 units Subcutaneous twice daily Active SM Aspirin Adult Low Strength 81 MG TAKE ONE TABLET BY MOUTH EVERY DAY Oral every other day Active Duricef 500 mg 2 tablets oral Daily for 10 day(s) Not-Taking Clopidogrel Bisulfate 75 MG TAKE ONE TABLET BY MOUTH EVERY DAY Oral for 90 Not-Taking PROCEDURES from 1960 to 2021-08-26 Procedure Date Ordered Result Body Site Med: Cadexomer Iodine gel topical IODOSORB 10gm 2021-08-20 N/A Medication: 4% Lidocaine topical cream (Anecream) 5gm 2021-08-20 N/A RESULTS No Results REASON FOR VISIT [...] documented in the procedure note. 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 (ICD-10 - L97.414) Aug, Non-pressure chronic ulcer o f other part of left foot with fat layer exposed (ICD-10 - L97.522) PLAN OF TREATMENT Medication Medication Name Sig Start Date Stop Date Glucostix glucose strip 1 strip daily Apr, SM Aspirin Adult Low Strength 81 MG TAKE ONE TABLET BY MOUTH MATEUS RY DAY Oral risperiDONE 0.25 MG 1 tab Orally Once a day Lantus 100 UNIT/ML 45 units Subcutaneous twice daily Lisinopril 10 mg 1 tablet Orally Once a day DOK 100 MG 1 cap Orally Once a day Eliquis 5 MG 1 tab Orally bid Treatment Notes Assessment Notes Clinical Notes Type 2 diabetes mellitus with foot ulcer Dressing javier ges 3x a week. The dressing should follow those documented in the procedure note. paula lot: [id number] exp:07/04 Next Appt Details 1 Week Reason: Provider Name:Pauly Burger, 08-27 02:30:00 PM, [address], , [place], [address], Provider Name:Pauly Burger, 09-10 02:15:00 PM, [address], , [place], [address], Provider Name:Jan Raya, 2021-11-25 09 :30:00 AM, [address], , [place], [address], Insurance Providers Payer Name Payer Address Payer Phone Insured Name Patient Relati onship to Insured Coverage Start Date Coverage End Date MEDICARE COMPLETE [employer] [address] [address] [facility] [address] MARCELL MATOS MEDICAID [employer] [address] [facility] [address] MARCELL MATOS self
--- OUTSIDE RECORDS SUMMARY | 2021-09-27 11:02 | CCD ---
Author Author [facility] Organization [facility] Address Unknown Phone Unavailable Care Team Providers Care Parole Supervisor Name Role Phone Pauly Burger Unavailable PROBLEMS Type Condition ICD9-CM Code [id number] Code Onset Dates Condition S tatus W/U Status Risk SNOMED Code Notes Problem Non-pressure chronic ulcer o f right 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 L97.411 Active confirmed 759622286 Problem Non-pressure chronic ulcer o f left heel and midfoot with fat layer exposed L97.422 Active confirmed 280067452 Problem Acute osteomyelitis of right calcaneus M86.171 A ctive confirmed 347335477 Problem 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 Active confirmed 758198955 Problem Tinea unguium B35.1 Active confirmed 848159 005 Problem Type 2 diabetes mellitus with foot ulcer E11.621 Active confirmed 995316518 Problem 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 Active confirmed 245809518 Problem Non-pressure chronic ulcer o f other part of right foot with fat layer exposed L97.512 Active confirmed 132204798 Problem Onychomycosis of toenail B35.1 Active confirmed 397776466 Problem Essential hypertension I10 Active confirmed 19964828 Problem Type 2 diabetes mellitus with other specified complication E11.69 Active confirmed 608580389 Problem Type 1 diabetes mellitus with other specified complication E10.69 Active confirmed 152179052 ALLERGIES Allergen (clinical drug ingredient) Drug/Non Drug Allergy do cumented on EMR Reaction Allergy Type Onset Date Status Hydrochlorothiazide-12.5 mg dizziness Drug Allergy Active ENCOUNTERS from 1960 to 2021-07-29 Encounter Location Date Provider Diagnosis [facility] [phone] [place] [address] Jul, Pauly Burger Type 2 diabetes mellitus wit h foot ulcer E11.621 ; Non- pressure chronic ulcer of left heel and midfoot with fat layer exposed L97.422 and Non-pressure chronic ulcer of right heel and midfoot with necrosis of bone L97.414 IMMUNIZATIONS Vaccine Route Administration Date Status Influenza 18 yrs & older Flublok Unknown Aug 21, 2020 Others TDAP 0.5mL (Boostrix) Unknown Aug 02, 2011 Administer ed Hepatitis B Ped & Adol 0.5mL Engerix-B Unknown Aug 03, 2011 Administered Influenza 6mo & up Fluzone IM Intramuscular Aug 26, 2011 Admi nistered Influenza 6mo & up Fluzone IM Intramuscular Aug 11, 2010 Admi nistered SOCIAL HISTORY Sex Assigned At : Social [...] No Information VITAL SIGNS Weight 275 lbs Jul, Height 5'5 3/4" in Jul, BMI 44.72 kg/m2 Jul, Heart Rate 83 /min Jul, Respiratory Rate 16 /min Jul, Temperature 98 degrees Fahrenheit Jul, Oximetry 96 Jul, Blood pressure systolic 142 mm Hg Jul, Blood pressure diastolic 82 mm Hg Jul, MEDICATIONS Medication SIG (Take, Route, Frequency, Duration) Notes Start Da te End Date Status Lantus 100 UNIT/ML 45 units Subcutaneous twice daily Active Clopidogrel Bisulfate 75 MG TAKE ONE TABLET BY MOUTH EVERY DAY Oral for 90 Active SM Aspirin Adult Low Strength 81 MG TAKE ONE TABLET BY MOUTH EVERY DAY Oral for 30 every other day Active Glucostix glucose strip 1 strip daily for 30 day(s) Apr Active Duricef 500 mg 2 tablets oral Daily for 10 day(s) Active DOK 100 MG 1 capsule as needed Orally Once a day Active Lisinopril 10 mg 1 tablet Orally Once a day Active Dulcolax Balance 1200 mg soft chews Active Eliquis 5 MG as directed Orally bid Active risperiDONE 0.25 MG 1 tab Orally Once a day Active PROCEDURES from 1960 to 2021-07-29 Procedure Date Ordered Result Body Site Medication: 4% Lidocaine topical cream (Anecream) 5gm 2021-07-23 N/A RESULTS No Results REASON FOR VISIT BLE WOUNDS MEDICAL (GENERAL) HISTORY Type Description Date Medical [...] Notes Treatment Notes Treatm ent Clinical Notes Jul, Type 2 diabetes mellitus with foot ulcer (ICD-10 - E11.621) Dressing changes 3x a week. The dressing should follow those documented in the procedure note. 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 The dressing should follow those documented in the procedure note. vashe lot: [id number] exp:07/04 Next Appt Details 1 Week Reason: Provider Name:Pauly Burger, 07-30 01:15:00 PM, [address], , [place], [address], Provider Name:Pauly Burger, 08-06 01:30:00 PM, [address], , [place], [address], Provider Name:Jan Raya, 2021-08-24 09 :00:00 AM, [address], , [place], [address], Insurance Providers Payer Name Payer Address Payer Phone Insured Name Patient Relati onship to Insured Coverage Start Date Coverage End Date MEDICARE COMPLETE [employer] [address] [address] [facility] [phone] MARCELL MATOS self MEDICAID [facility] [address] [facility] [id number] MARCELL MATOS self
--- OUTSIDE RECORDS SUMMARY | 2021-09-27 11:02 | CCD ---
Author Organization Unknown Address [address] [place] [address] Phone [phone] Care Team Providers Care Darkroom Technician Name Role Phone LEONARD BURTON MD 2 [phone] LINDA CHASE MD 2 [phone] Allergies Code Code System Name Reaction Severity Status Onset NKDA Notes: Some allergies listed in Document : #[id number] could not be added to this patient's chart. Please review this document and add these allergies to the patient's chart manually as needed. Medications Name Status Start Date Stop Date aspirin 81 mg tablet,delayed release TAKE ONE TABLET BY MOUTH EVERY DAY Active Not available cefadroxil 500 mg capsule TAKE TWO CAPSULES BY MOUTH EVERY DAY Completed ceftriaxone 2 gram solution for injection Completed 06/30/2021 ceftriaxone 2 gram/50 mL in dextrose (is o-osm) intravenous piggyback Infuse 50 mL every day by intravenous route for 42 days. Completed 06/30/2021 cephalexin 500 mg capsule Completed 2019 clindamycin HCl 300 mg capsule Completed clopidogrel 75 mg tablet Completed doxycycline hyclate 100 mg tablet TAKE ONE TABLET BY MOUTH TWICE A DAY FOR 10 DAYS Completed 06/30/2021 Eliquis 5 mg tablet TAKE TWO TABLETS BY MOUTH TWO TIMES A DAY FOR 7 DAYS THEN TAKE ONE TABLET BY MOUTH TWO TIMES A DAY Active Not available ergocalciferol (vitamin D2) 1,250 mcg (5 0,000 unit) capsule TAKE 1 CAPSULE BY MOUTH ONCE A WEEK Active Not available erythromycin 333 mg tablet,delayed release Completed 09/07/2020 ferrous sulfate 325 mg (65 mg iron) tabl et TAKE ONE TABLET BY MOUTH TWICE A DAY Completed freestyle mis lancets Active Not khai ilable Lantus Solostar U-100 Insulin 100 unit/m L (3 mL) subcutaneous pen INJECT 45 UNITS SUBCUTANEOUSLY EVERY MORNING AND 30 UNITS EVERY EVENING MAXIMUM DAILY DOSE 75 UNITS Active Not available levofloxacin 750 mg tablet Completed 09/07 lisinopril 20 mg tablet TAKE ONE TABLET BY MOUTH AT BEDTIME Active Not available metronidazole 500 mg tablet Take 1 tablet every 8 hours by oral route. Completed 06/30/2021 ondansetron HCl 4 mg tablet Completed 01/11 OneTouch Ultra Blue Test Strip Active N ot available penicillin V potassium 500 mg tablet Completed 09/07/2020 risperidone 0.25 mg tablet TAKE ONE TABLET BY MOUTH AT BEDTIME Active Not available silver sulfadiazine 1 % topical cream Completed 09/07/2020 Unifine Pentips Plus 31 gauge x 1/4" nee dle DIRECTED THREE TIMES A DAY Active Not avail able Problems Name Status Onset Date Source Foot Ulcer Due to Type 2 Diabetes Mellitus Active 04/09 Anal Fissure Active 03/18/2014 Anal Fistula Active 03/18/2014 Evaluation Finding Active 03/18/2014 Clinical Finding Active 05/27/2014 Abnormal Involuntary Movement Active 08/13/2014 Breast Lump Active 08/13/2014 Vitamin D Deficiency Active 03/06/2015 Senile Cataract Active 06/09/2015 Electrocardiogram Abnormal Active 06/15/2015 Onychomycosis Active 08/06/2015 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 Contact Dermatitis Active 05/31/2016 Long-term Current Use of Insulin Active 09/13/2016 Blepharitis Active 10/13/2016 Hypertensive Disorder Active 11/10/2016 Evaluation Procedure Active 11/10/2016 Body Mass Index 30+ - Obesity Active 08/24/2017 Severe Obesity Active 08/24/2017 Vaginolabial Hernia Active 04/10/2019 Breast Neoplasm Screening Status Active 04/10/2019 Clinical History and Observation Findings Active 2019 Influenza Vaccine Needed Active 08/06/[address] Concept Active 08/06/2020 Clinical Finding Active Notes: Some problems listed in Document: #[id number] could not be added to this patient's chart. Please review this document and add these problems to the patient's chart manually as needed. 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 Results Lab Results Date Name Specimen Result Interpretation Description Value Range Status Address 2021 Glucose, Fingerstick, Blood Normal Bedside Glucose 100 mg/dL 80-115 mg/dL [facility]: [address] 0 [facility] 2021 CBC W/ Auto Diff Normal White Blood Count 7.6 10 4.0-10.0 10 [facility]: 830 [facility] Normal Red Blood Count 4.44 10 4.00-5.40 10 [facility]: 830 [facility] Low Hemoglobin 11.6 g/dL 12.0-15.5 g/dL [facility]: 8[address] [facility] Normal Hematocrit 36.9 % 36.0-47.0 % [facility]: 830 [facility] Normal Mean Corpuscular Volume 83.1 fL 80.0 -96.0 fL [facility]: 830 [facility] Low Mean Corpuscular Hemoglobin 26.1 pg 27.0-33.0 pg [facility]: 830 [facility] Low Mean Corpuscular HGB Conc 31.4 g/dL 32.0-36.5 g/dL [facility]: 830 [facility] Normal Red Cell Distribution Width 14.2 % 1 1.5-14.5 % [facility]: 8[address] [facility] Normal Platelet Count, Automated 331 10 150 -450 10 [facility]: 8[address] [facility] High Neutrophils % 73.3 % 36.0-66.0 % [facility]: 8[address] [facility] Low Lymph % 18.5 % 24.0-44.0 % [facility]: 8[address] [facility] Normal [place] % 6.7 % 2.0-8.0 % [facility]: 8[address] [facility] Normal Eos % 0.8 % 0.0-3.0 % [facility]: 8[address] [facility] Normal Baso % 0.4 % 0.0-1.0 % [facility]: 8[address] [facility] Normal Immature Granulocyte % 0.3 % 0-3.0 % [facility]: 8[address] [facility] Normal Nucleated Red Blood Cell % 0.0 % 0- 0 % [facility]: 8[address] [facility] Normal Neutrophils # 5.6 10 1.5-8.5 10 [facility]: [address] [facility] Low Lymph # 1.4 10 1.5-5.0 10 [facility]: 8[address] [facility] Normal [place] # 0.5 10 0.0-0.[address] [facility]: 830 [facility] Normal Eos # 0.1 10 0.0-0.5 10 [facility]: 830 [facility] Normal Baso # 0.0 10 0.0-0.[address] [facility]: 830 [facility] 2021 PT/PTT, Plasma Normal Prothrombin Time 13. 7 seconds 12.7-14.5 seconds [facility]: 83 0 [facility] Normal Inr 1.01 [facility]: 0 [facility] Normal Partial Thromboplastin Time 30 .9 seconds 25.9-37.0 seconds [facility]: 830 [facility] 2021 BMP, Serum or Plasma Normal Glucose, Fastin g 93 mg/dL 70-100 mg/dL [facility]: 83 0 [facility] Normal Blood Urea Nitrogen 17 mg/dL 7-18 mg /dL [facility]: 830 [facility] Normal Creatinine for GFR 0.85 mg/dL 0.55-1 .30 mg/dL [facility]: 0 [facility] Normal Glomerular Filtration Rate > 60.0 >4 5 [facility]: 830 [facility] Normal Sodium Level 136 mEq/L 136-145 mEq/L [facility]: 830 [facility] Normal Potassium Serum 4.5 mEq/L 3.5-5.1 mE q/L [facility]: 830 [facility] Normal Chloride Level 103 mEq/L 98-107 mEq/ L [facility]: 8[address] [facility] Normal Carbon Dioxide Level 26 mEq/L 21-32 mEq/L [facility]: 8[address] [facility] Low Anion Gap 7 mEq/L 8-16 mEq/L [facility]: 830 [facility] Normal Calcium Level 9.3 mg/dL 8.8-10.2 mg/ dL [facility]: 830 [facility] 01/12/2021 Glucose, Fingerstick, Blood Low Bedside Glucose 69 mg/dL 80-115 mg/dL [facility]: 83 0 [facility] 01/12/2021 Glucose, Fingerstick, Blood Low Bedside Glucose 77 mg/dL 80-115 mg/dL [facility]: 83 0 [facility] 01/12/2021 Glucose, Fingerstick, Blood High Bedside Glucose 118 mg/dL 80- 115 mg/dL [facility]: 83 0 [facility] 01/11/2021 Glucose, Fingerstick, Blood High Bedside Glucose 200 mg/dL 80- 115 mg/dL [facility]: 83 0 [facility] 01/11/2021 CBC W/ Auto Diff Normal White Blood Count 5.0 10 4.0-10.0 10 [facility]: 830 [facility] Low Red Blood Count 3.68 10 4.00-5.40 10 [facility]: 830 [facility] Low Hemoglobin 8.9 g/dL 12.0-15.5 g/dL F inal [facility]: 0 [facility] Low Hematocrit 30.0 % 36.0-47.0 % [facility]: 830 [facility] Normal Mean Corpuscular Volume 81.5 fL 80.0 -96.0 fL [facility]: 830 [facility] Low Mean Corpuscular Hemoglobin 24.2 pg 27.0-33.0 pg [facility]: 830 [facility] Low Mean Corpuscular HGB Conc 29.7 g/dL 32.0-36.5 g/dL [facility]: 830 [facility] High Red Cell Distribution Width 15.9 % 1 1.5-14.5 % [facility]: 830 [facility] Normal Platelet Count, Automated 330 10 150 -450 10 [facility]: 830 [facility] Normal Neutrophils % 63.7 % 36.0-66.0 % [facility]: 8[address] [facility] Low Lymph % 22.4 % 24.0-44.0 % [facility]: 8[address] [facility] High [place] % 10.3 % 2.0-8.0 % Final [facility]: 830 [facility] Normal Eos % 2.4 % 0.0-3.0 % [facility]: 830 [facility] Normal Baso % 0.8 % 0.0-1.0 % [facility]: 0 [facility] Normal Immature Granulocyte % 0.4 % 0-3.0 % [facility]: 0 [facility] Normal Nucleated Red Blood Cell % 0.0 % 0- 0 % [facility]: 830 [facility] Normal Neutrophils # 3.2 10 1.5-8.5 10 [facility]: 8[address] [facility] Low Lymph # 1.1 10 1.5-5.0 10 Final [facility]: 830 [facility] Normal [place] # 0.5 10 0.0-0.[address] [facility]: 830 [facility] Normal Eos # 0.1 10 0.0-0.5 10 [facility]: 830 [facility] Normal Baso # 0.0 10 0.0-0.[address] [facility]: 830 [facility] 01/11/2021 CMP, Serum or Plasma High Glucose, Fastin g 216 mg/dL 70-100 mg/dL [facility]: 83 0 [facility] Normal Blood Urea Nitrogen 10 mg/dL 7-18 mg /dL [facility]: 830 [facility] Normal Creatinine for GFR 0.76 mg/dL 0.55-1 .30 mg/dL [facility]: 830 [facility] Normal Glomerular Filtration Rate > 60.0 >4 5 [facility]: 8[address] [facility] Low Sodium Level 135 mEq/L 136-145 mEq/L [facility]: 0 [facility] Normal Potassium Serum 4.2 mEq/L 3.5-5.1 mE q/L [facility]: 830 [facility] Normal Chloride Level 105 mEq/L 98-107 mEq/ L [facility]: 8[address] [facility] Normal Carbon Dioxide Level 25 mEq/L 21-32 mEq/L [facility]: 8[address] [facility] Low Anion Gap 5 mEq/L 8-16 mEq/L [facility]: 0 [facility] Low Calcium Level 8.3 mg/dL 8.8-10.2 mg/ dL [facility]: 830 [facility] Low AST/SGOT 6 U/L 7-37 U/L [facility]: 830 [facility] Normal ALT/SGPT 14 U/L 12-78 U/L [facility]: 8[address] [facility] Normal Alkaline Phosphatase 76 U/L 45-117 U /L [facility]: 0 [facility] Normal Bilirubin,total 0.3 mg/dL 0.2-1.0 mg /dL [facility]: 0 [facility] Low Total Protein 6.2 gm/dL 6.4-8.2 gm/d L [facility]: 8[address] [facility] Low Albumin 2.5 gm/dL 3.2-5.2 gm/dL [facility]: 8[address] [facility] Low Albumin/globulin Ratio 0.7 1.2-2. 2 [facility]: 830 [facility] 01/11/2021 C Reactive Protein, QN, Serum or Plasma High C Reactive Protein Quantitativ 0.81 mg/dL 0.00-0.30 mg/dL [facility]: 8[address] [facility] 01/11/2021 Glucose, Fingerstick, Blood High Bedside Glucose 202 mg/dL 80- 115 mg/dL [facility]: 83 0 [facility] 01/11/2021 Glucose, Fingerstick, Blood High Bedside Glucose 158 mg/dL 80- 115 mg/dL [facility]: 83 0 [facility] 01/11/2021 Glucose, Fingerstick, Blood High Bedside Glucose 169 mg/dL 80- 115 mg/dL [facility]: 83 0 [facility] 01/10/2021 Glucose, Fingerstick, Blood High Bedside Glucose 168 mg/dL 80- 115 mg/dL [facility]: 83 0 [facility] 01/10/2021 Glucose, Fingerstick, Blood High Bedside Glucose 199 mg/dL 80- 115 mg/dL [facility]: 83 0 [facility] 01/10/2021 Glucose, Fingerstick, Blood High Bedside Glucose 192 mg/dL 80- 115 mg/dL [facility]: 83 0 [facility] 01/10/2021 Glucose, Fingerstick, Blood High Bedside Glucose 181 mg/dL 80- 115 mg/dL [facility]: 83 0 [facility] 01/09/2021 Glucose, Fingerstick, Blood Normal Bedside Glucose 103 mg/dL 80-115 mg/dL [facility]: 83 0 [facility] 01/09/2021 Glucose, Fingerstick, Blood High Bedside Glucose 203 mg/dL 80- 115 mg/dL [facility]: 83 0 [facility] 01/09/2021 Glucose, Fingerstick, Blood High Bedside Glucose 145 mg/dL 80- 115 mg/dL [facility]: 83 0 [facility] 01/09/2021 Glucose, Fingerstick, Blood High Bedside Glucose 132 mg/dL 80- 115 mg/dL [facility]: 83 0 [facility] 01/08/2021 Glucose, Fingerstick, Blood High Bedside Glucose 184 mg/dL 80- 115 mg/dL [facility]: 83 0 [facility] 01/08/2021 Glucose, Fingerstick, Blood High Bedside Glucose 232 mg/dL 80- 115 mg/dL [facility]: 83 0 [facility] 01/08/2021 Glucose, Fingerstick, Blood High Bedside Glucose 175 mg/dL 80- 115 mg/dL [facility]: 83 0 [facility] 01/08/2021 Glucose, Fingerstick, Blood High Bedside Glucose 185 mg/dL 80- 115 mg/dL [facility]: 83 0 [facility] 01/07/2021 Glucose, Fingerstick, Blood Low Bedside Glucose 65 mg/dL 80-115 mg/dL [facility]: 83 0 [facility] 01/07/2021 Glucose, Fingerstick, Blood High Bedside Glucose 154 mg/dL 80- 115 mg/dL [facility]: 83 0 [facility] 01/07/2021 Glucose, Fingerstick, Blood High Bedside Glucose 168 mg/dL 80- 115 mg/dL [facility]: 83 0 [facility] 01/07/2021 Glucose, Fingerstick, Blood High Bedside Glucose 176 mg/dL 80- 115 mg/dL [facility]: 83 0 [facility] 01/06/2021 Cbc Normal White Blood Count 6.4 10 4.0-10. 0 10 [facility]: 830 [facility] Low Red Blood Count 3.50 10 4.00-5.40 10 [facility]: 830 [facility] Low Hemoglobin 8.3 g/dL 12.0-15.5 g/dL F inal [facility]: 830 [facility] Low Hematocrit 28.4 % 36.0-47.0 % [facility]: 0 [facility] Normal Mean Corpuscular Volume 81.1 fL 80.0 -96.0 fL [facility]: 0 [facility] Low Mean Corpuscular Hemoglobin 23.7 pg 27.0-33.0 pg [facility]: 0 [facility] Low Mean Corpuscular HGB Conc 29.2 g/dL 32.0-36.5 g/dL [facility]: [address] [place] [address] High Red Cell Distribution Width 14.9 % 1 1.5-14.5 % [facility]: [address] [place] [address] Normal Platelet Count, Automated 414 10 150 -450 10 [facility]: 0 [facility] Normal Nucleated Red Blood Cell % 0.0 % 0- 0 % [facility]: 830 [facility] 01/06/2021 Glucose, Fingerstick, Blood High Bedside Glucose 174 mg/dL 80- 115 mg/dL [facility]: 83 0 [facility] 01/06/2021 BMP, Serum or Plasma High Glucose, Fastin g 189 mg/dL 70-100 mg/dL [facility]: 83 0 [facility] Normal Blood Urea Nitrogen 11 mg/dL 7-18 mg /dL [facility]: 0 [facility] Normal Creatinine for GFR 0.95 mg/dL 0.55-1 .30 mg/dL [facility]: 0 [facility] Normal Glomerular Filtration Rate > 60.0 >4 5 [facility]: 0 [facility] Normal Sodium Level 136 mEq/L 136-145 mEq/L [facility]: 0 [facility] Normal Potassium Serum 4.3 mEq/L 3.5-5.1 mE q/L [facility]: 830 [facility] Normal Chloride Level 102 mEq/L 98-107 mEq/ L [facility]: 830 [facility] Normal Carbon Dioxide Level 28 mEq/L 21-32 mEq/L [facility]: 8[address] [facility] Low Anion Gap 6 mEq/L 8-16 mEq/L [facility]: 830 [facility] Normal Calcium Level 8.8 mg/dL 8.8-10.2 mg/ dL [facility]: 830 [facility] 01/06/2021 Glucose, Fingerstick, Blood High Bedside Glucose 183 mg/dL 80- 115 mg/dL [facility]: 83 0 [facility] 01/06/2021 Glucose, Fingerstick, Blood High Bedside Glucose 123 mg/dL 80- 115 mg/dL [facility]: 83 0 [facility] 01/06/2021 Glucose, Fingerstick, Blood High Bedside Glucose 222 mg/dL 80- 115 mg/dL [facility]: 83 0 [facility] 01/05/2021 BMP, Serum or Plasma Low Glucose, Fastin g 62 mg/dL 70-100 mg/dL [facility]: 83 0 [facility] Normal Blood Urea Nitrogen 9 mg/dL 7-18 mg/ dL [facility]: 0 [facility] Normal Creatinine for GFR 0.82 mg/dL 0.55-1 .30 mg/dL [facility]: 830 [facility] Normal Glomerular Filtration Rate > 60.0 >4 5 [facility]: 830 [facility] Normal Sodium Level 136 mEq/L 136-145 mEq/L [facility]: 830 [facility] Normal Potassium Serum 4.4 mEq/L 3.5-5.1 mE q/L [facility]: 830 [facility] Normal Chloride Level 102 mEq/L 98-107 mEq/ L [facility]: 830 [facility] Normal Carbon Dioxide Level 26 mEq/L 21-32 mEq/L [facility]: [address] [place] [address] Normal Anion Gap 8 mEq/L 8-16 mEq/L [facility]: [address] [place] [address] Low Calcium Level 8.6 mg/dL 8.8-10.2 mg/ dL [facility]: [address] [place] [address] 01/05/2021 C Reactive Protein, QN, Serum or Plasma High C Reactive Protein Quantitativ 2.31 mg/dL 0.00-0.30 mg/dL [facility]: [address] [place] [address] 01/05/2021 Cbc Normal White Blood Count 7.3 10 4.0-10. 0 10 [facility]: [address] [place] [address] Low Red Blood Count 3.57 10 4.00-5.40 10 [facility]: [address] [place] [address] Low Hemoglobin 8.5 g/dL 12.0-15.5 g/dL F inal [facility]: [address] [place] [address] Low Hematocrit 28.6 % 36.0-47.0 % [facility]: [address] [place] [address] Normal Mean Corpuscular Volume 80.1 fL 80.0 -96.0 fL [facility]: [address] [place] [address] Low Mean Corpuscular Hemoglobin 23.8 pg 27.0-33.0 pg [facility]: [address] [place] [address] Low Mean Corpuscular HGB Conc 29.7 g/dL 32.0-36.5 g/dL [facility]: [address] [place] [address] High Red Cell Distribution Width 14.6 % 1 1.5-14.5 % [facility]: [address] [place] [address] Normal Platelet Count, Automated 450 10 150 -450 10 [facility]: [address] [place] [address] Normal Nucleated Red Blood Cell % 0.0 % 0- 0 % [facility]: [address] [place] [address] 01/05/2021 ESR (Erythrocyte Sedimentation Rate), Blood Hig h Erythrocyte Sedimentation Rate 72 mm/HR 0-30 mm/HR [facility]: 830 [facility] 01/05/2021 Glucose, Fingerstick, Blood Normal Bedside Glucose 111 mg/dL 80-115 mg/dL [facility]: 83 0 [facility] 01/05/2021 Glucose, Fingerstick, Blood High Bedside Glucose 147 mg/dL 80- 115 mg/dL [facility]: 83 0 [facility] 01/05/2021 Glucose, Fingerstick, Blood High Bedside Glucose 193 mg/dL 80- 115 mg/dL [facility]: 83 0 [facility] 01/04/2021 Cbc Normal White Blood Count 6.8 10 4.0-10. 0 10 [facility]: 0 [facility] Low Red Blood Count 3.44 10 4.00-5.40 10 [facility]: [address] [place] [address] Low Hemoglobin 8.2 g/dL 12.0-15.5 g/dL F inal [facility]: [address] [place] [address] Low Hematocrit 27.3 % 36.0-47.0 % [facility]: [address] [place] [address] Low Mean Corpuscular Volume 79.4 fL 80.0 -96.0 fL [facility]: [address] [place] [address] Low Mean Corpuscular Hemoglobin 23.8 pg 27.0-33.0 pg [facility]: 0 [facility] Low Mean Corpuscular HGB Conc 30.0 g/dL 32.0-36.5 g/dL [facility]: 0 [facility] Normal Red Cell Distribution Width 14.4 % 1 1.5-14.5 % [facility]: [address] [place] [address] Normal Platelet Count, Automated 411 10 150 -450 10 [facility]: 0 [facility] Normal Nucleated Red Blood Cell % 0.0 % 0- 0 % [facility]: 0 [facility] 01/04/2021 CMP, Serum or Plasma High Glucose, Fastin g 219 mg/dL 70-100 mg/dL [facility]: 83 0 [facility] Normal Blood Urea Nitrogen 10 mg/dL 7-18 mg /dL [facility]: 830 [facility] Normal Creatinine for GFR 0.80 mg/dL 0.55-1 .30 mg/dL [facility]: 830 [facility] Normal Glomerular Filtration Rate > 60.0 >4 5 [facility]: 830 [facility] Low Sodium Level 134 mEq/L 136-145 mEq/L [facility]: 830 [facility] Normal Potassium Serum 4.6 mEq/L 3.5-5.1 mE q/L [facility]: 830 [facility] Normal Chloride Level 100 mEq/L 98-107 mEq/ L [facility]: 830 [facility] Normal Carbon Dioxide Level 27 mEq/L 21-32 mEq/L [facility]: 8[address] [facility] Low Anion Gap 7 mEq/L 8-16 mEq/L [facility]: 830 [facility] Low Calcium Level 8.5 mg/dL 8.8-10.2 mg/ dL [facility]: 830 [facility] Low AST/SGOT 4 U/L 7-37 U/L [facility]: 830 [facility] Low ALT/SGPT 10 U/L 12-78 U/L [facility]: 830 [facility] Normal Alkaline Phosphatase 84 U/L 45-117 U /L [facility]: 830 [facility] Normal Bilirubin,total 0.3 mg/dL 0.2-1.0 mg /dL [facility]: 830 [facility] Low Total Protein 6.0 gm/dL 6.4-8.2 gm/d L [facility]: 830 [facility] Low Albumin 2.1 gm/dL 3.2-5.2 gm/dL Leah l [facility]: 830 [facility] Low Albumin/globulin Ratio 0.5 1.2-2. 2 [facility]: 830 [facility] 01/04/2021 Phosphorus Level Normal Phosphorus Level 3 .0 mg/dL 2.5-4.9 mg/dL [facility]: 83 0 [facility] 01/04/2021 Magnesium, Serum or Plasma Low Magnesium Level 1.5 mg/dL 1.8- 2.4 mg/dL [facility]: 83 0 [facility] 01/04/2021 Vancomycin, Trough, Serum High Va ncomycin Level Trough 20.7 ug/mL 10.0-20.0 ug/mL [facility] nter: 830 [facility] 01/04/2021 Glucose, Fingerstick, Blood High Bedside Glucose 200 mg/dL 80- 115 mg/dL [facility]: 83 0 [facility] 01/04/2021 Glucose, Fingerstick, Blood High Bedside Glucose 183 mg/dL 80- 115 mg/dL [facility]: 83 0 [facility] 01/04/2021 Glucose, Fingerstick, Blood High Bedside Glucose 209 mg/dL 80- 115 mg/dL [facility]: 83 0 [facility] 01/03/2021 Cbc Normal White Blood Count 6.2 10 4.0-10. 0 10 [facility]: 0 [facility] Low Red Blood Count 3.51 10 4.00-5.40 10 [facility]: 830 [facility] Low Hemoglobin 8.3 g/dL 12.0-15.5 g/dL F inal [facility]: 0 [facility] Low Hematocrit 28.1 % 36.0-47.0 % [facility]: 0 [facility] Normal Mean Corpuscular Volume 80.1 fL 80.0 -96.0 fL [facility]: 0 [facility] Low Mean Corpuscular Hemoglobin 23.6 pg 27.0-33.0 pg [facility]: 0 [facility] Low Mean Corpuscular HGB Conc 29.5 g/dL 32.0-36.5 g/dL [facility]: [address] [place] [address] Normal Red Cell Distribution Width 14.5 % 1 1.5-14.5 % [facility]: [address] [place] [address] Normal Platelet Count, Automated 418 10 150 -450 10 [facility]: 0 [facility] Normal Nucleated Red Blood Cell % 0.0 % 0- 0 % [facility] [facility] [address] [place] [address] 01/03/2021 BMP, Serum or Plasma Normal Glucose, Fastin g 97 mg/dL 70-100 mg/dL [facility]: 83 0 [facility] Normal Blood Urea Nitrogen 12 mg/dL 7-18 mg /dL [facility]: [address] [place] [address] Normal Creatinine for GFR 0.78 mg/dL 0.55-1 .30 mg/dL [facility]: [address] [place] [address] Normal Glomerular Filtration Rate > 60.0 >4 5 [facility]: [address] [place] [address] Normal Sodium Level 138 mEq/L 136-145 mEq/L [facility]: [address] [place] [address] Normal Potassium Serum 4.4 mEq/L 3.5-5.1 mE q/L [facility]: [address] [place] [address] Normal Chloride Level 104 mEq/L 98-107 mEq/ L [facility]: [address] [place] [address] Normal Carbon Dioxide Level 27 mEq/L 21-32 mEq/L [facility]: [address] [place] [address] Low Anion Gap 7 mEq/L 8-16 mEq/L [facility]: [address] [place] [address] Normal Calcium Level 8.8 mg/dL 8.8-10.2 mg/ dL [facility]: [address] [place] [address] 01/03/2021 Tissue (Biopsy) Culture & Gs FOOT No observati on recorded. [facility]: [address] [facility] 01/03/2021 Culture, Anaerobic FOOT No observation recorde d. [facility]: [address] [facility] 01/03/2021 Vancomycin, Trough, Serum Normal Va ncomycin Level Trough 17.1 ug/mL 10.0-20.0 ug/mL [facility] nter: [address] [facility] 01/03/2021 Glucose, Fingerstick, Blood Normal Bedside Glucose 104 mg/dL 80-115 mg/dL Final [facility]: 83 0 [facility] 01/03/2021 Glucose, Fingerstick, Blood High Bedside Glucose 189 mg/dL 80- 115 mg/dL Final [facility]: 83 0 [facility] 01/03/2021 Glucose, Fingerstick, Blood High Bedside Glucose 149 mg/dL 80- 115 mg/dL Final [facility]: 83 0 [facility] 01/03/2021 Tissue (Biopsy) Culture & Gs FOOT No observati on recorded. [facility]: [address] [facility] 01/03/2021 Tissue (Biopsy) Culture & Gs FOOT No observati on recorded. [facility]: [address] [facility] 01/03/2021 Tissue (Biopsy) Culture & Gs FOOT No observati on recorded. [facility]: [address] [facility] 01/03/2021 Tissue (Biopsy) Culture & Gs FOOT No observati on recorded. [facility]: [address] [facility] 01/03/2021 Tissue (Biopsy) Culture & Gs FOOT No observati on recorded. [facility]: [address] [facility] 01/02/2021 Glucose, Fingerstick, Blood High Bedside Glucose 159 mg/dL 80- 115 mg/dL Final [facility]: 83 0 [facility] 01/02/2021 BMP, Serum or Plasma High Glucose, Fastin g 108 mg/dL 70-100 mg/dL [facility]: 83 0 [facility] Normal Blood Urea Nitrogen 12 mg/dL 7-18 mg /dL Final [facility]: [address] [place] [address] Normal Creatinine for GFR 0.71 mg/dL 0.55-1 .30 mg/dL [facility]: [address] [place] [address] Normal Glomerular Filtration Rate > 60.0 >4 5 [facility]: [address] [place] [address] Normal Sodium Level 137 mEq/L 136-145 mEq/L [facility]: [address] [place] [address] Normal Potassium Serum 4.0 mEq/L 3.5-5.1 mE q/L [facility]: [address] [place] [address] Normal Chloride Level 104 mEq/L 98-107 mEq/ L [facility]: [address] [place] [address] Normal Carbon Dioxide Level 26 mEq/L 21-32 mEq/L [facility]: [address] [place] [address] Low Anion Gap 7 mEq/L 8-16 mEq/L [facility]: [address] [place] [address] Low Calcium Level 8.2 mg/dL 8.8-10.2 mg/ dL [facility]: [address] [place] [address] 01/02/2021 Cbc Normal White Blood Count 7.1 10 4.0-10. 0 10 [facility]: [address] [place] [address] Low Red Blood Count 3.20 10 4.00-5.40 10 [facility]: [address] [place] [address] Low Hemoglobin 7.5 g/dL 12.0-15.5 g/dL F inal [facility]: [address] [place] [address] Low Hematocrit 25.4 % 36.0-47.0 % [facility]: [address] [place] [address] Low Mean Corpuscular Volume 79.4 fL 80.0 -96.0 fL [facility]: [address] [place] [address] Low Mean Corpuscular Hemoglobin 23.4 pg 27.0-33.0 pg [facility]: [address] [place] [address] Low Mean Corpuscular HGB Conc 29.5 g/dL 32.0-36.5 g/dL [facility]: [address] [place] [address] Normal Red Cell Distribution Width 14.4 % 1 1.5-14.5 % [facility]: [address] [place] [address] Normal Platelet Count, Automated 419 10 150 -450 10 [facility]: [address] [place] [address] Normal Nucleated Red Blood Cell % 0.0 % 0- 0 % [facility]: [address] [place] [address] 01/02/2021 Mrsa Screen, PCR Normal MRSA PCR Screen no t detected negative [facility]: [address] [place] [address] 01/02/2021 HbA1C (Hemoglobin a1C), Blood Normal Hemogl obin a1C 7.7 % [facility]: [address] [place] [address] High Estimated Average Glucose 174 mg/dL 60-110 mg/dL [facility]: [address] [place] [address] 01/02/2021 Cbc Normal White Blood Count 7.3 10 4.0-10. 0 10 [facility]: [address] [place] [address] Low Red Blood Count 3.85 10 4.00-5.40 10 [facility]: [address] [place] [address] Low Hemoglobin 9.0 g/dL 12.0-15.5 g/dL F inal [facility]: [address] [place] [address] Low Hematocrit 30.6 % 36.0-47.0 % [facility]: [address] [place] [address] Low Mean Corpuscular Volume 79.5 fL 80.0 -96.0 fL [facility]: [address] [place] [address] Low Mean Corpuscular Hemoglobin 23.4 pg 27.0-33.0 pg [facility]: [address] [place] [address] Low Mean Corpuscular HGB Conc 29.4 g/dL 32.0-36.5 g/dL [facility]: [address] [place] [address] Normal Red Cell Distribution Width 14.4 % 1 1.5-14.5 % [facility]: [address] [place] [address] High Platelet Count, Automated 474 10 150 -450 10 [facility]: [address] [facility] Normal Nucleated Red Blood Cell % 0.0 % 0- 0 % [facility]: [address] [facility] 01/02/2021 Glucose, Fingerstick, Blood High Bedside Glucose 198 mg/dL 80- 115 mg/dL [facility]: 83 0 [facility] 01/02/2021 Glucose, Fingerstick, Blood High Bedside Glucose 162 mg/dL 80- 115 mg/dL [facility]: 83 0 [facility] 01/02/2021 Glucose, Fingerstick, Blood High Bedside Glucose 136 mg/dL 80- 115 mg/dL [facility]: 83 0 [facility] 01/02/2021 Culture, Urine URINE,CATHETERIZED No observation recorded. [facility]: [address] [facility] 01/01/2021 CBC W/ Auto Diff Normal White Blood Count 9.6 10 4.0-10.0 10 [facility]: [address] [facility] Low Red Blood Count 3.78 10 4.00-5.40 10 [facility]: [address] [facility] Low Hemoglobin 9.0 g/dL 12.0-15.5 g/dL F inal [facility]: 0 [facility] Low Hematocrit 30.2 % 36.0-47.0 % [facility]: [address] [facility] Low Mean Corpuscular Volume 79.9 fL 80.0 -96.0 fL [facility]: [address] [facility] Low Mean Corpuscular Hemoglobin 23.8 pg 27.0-33.0 pg [facility]: 0 [facility] Low Mean Corpuscular HGB Conc 29.8 g/dL 32.0-36.5 g/dL [facility]: [address] [facility] Normal Red Cell Distribution Width 14.5 % 1 1.5-14.5 % [facility]: 0 [facility] High Platelet Count, Automated 513 10 150 -450 10 [facility]: [address] [facility] High Neutrophils % 70.8 % 36.0-66.0 % [facility]: [address] [facility] Low Lymph % 18.2 % 24.0-44.0 % [facility]: [address] [facility] Normal [place] % 8.0 % 2.0-8.0 % [facility]: [address] [facility] Normal Eos % 1.9 % 0.0-3.0 % [facility]: [address] [facility] Normal Baso % 0.4 % 0.0-1.0 % [facility]: [address] [facility] Normal Immature Granulocyte % 0.7 % 0-3.0 % [facility]: [address] [place] [address] Normal Nucleated Red Blood Cell % 0.0 % 0- 0 % [facility]: [address] [facility] Normal Neutrophils # 6.8 10 1.5-8.5 10 [facility]: [address] [facility] Normal Lymph # 1.8 10 1.5-5.0 10 [facility]: [address] [facility] Normal [place] # 0.8 10 0.0-0.[address] [facility]: [address] [facility] Normal Eos # 0.2 10 0.0-0.5 10 [facility]: [address] [facility] Normal Baso # 0.0 10 0.0-0.[address] [facility]: [address] [facility] 01/01/2021 PT/INR High Prothrombin Time 14.5 secon ds 12.5-14.3 seconds [facility]: 0 [facility] Normal Inr 1.11 [facility]: 0 [facility] 01/01/2021 Partial Thromboplastin Time Normal Partial Thromboplastin Time 31.1 seconds 24.2-38.5 seconds [facility] nter: [address] [place] [address] 01/01/2021 Lactic Acid, Serum or Plasma Normal Lactic Acid Sepsis Protocol 1.0 mmol/L 0.4-2.0 mmol/L [facility]: [address] [place] [address] 01/01/2021 Cardiovascular Assessment Panel, Serum Normal CPK Creatine Phosphokinase 31 U/L 26-192 U/L [facility]: [address] [place] [address] Normal CK-mb Value Mass 1.1 NG/mL <3.6 NG/m L [facility]: [address] [place] [address] Normal mb/CK Relative Index 3.55 < or =4 [facility]: [address] [place] [address] Normal Troponin I < 0.02 NG/mL < 0.10 NG/mL [facility]: [address] [place] [address] 01/01/2021 Hepatic Function Panel, Serum Low AST/SG OT 4 U/L 7-37 U/L [facility]: [address] [place] [address] Normal ALT/SGPT 15 U/L 12-78 U/L [facility]: [address] [place] [address] Normal Alkaline Phosphatase 94 U/L 45-117 U /L [facility]: [address] [place] [address] Normal Bilirubin,total 0.3 mg/dL 0.2-1.0 mg /dL [facility]: [address] [place] [address] Normal Bilirubin,direct 0.1 mg/dL 0.0-0.2 m g/dL [facility]: [address] [place] [address] Normal Total Protein 6.6 gm/dL 6.4-8.2 gm/d L [facility]: [address] [place] [address] Low Albumin 2.4 gm/dL 3.2-5.2 gm/dL Leah l [facility]: [address] [place] [address] Low Albumin/globulin Ratio 0.6 1.2-2. 2 [facility]: [address] [place] [address] 01/01/2021 BMP, Serum or Plasma High Glucose, Fastin g 180 mg/dL 70-100 mg/dL [facility]: 83 0 [facility] Normal Blood Urea Nitrogen 15 mg/dL 7-18 mg /dL [facility]: [address] [facility] Normal Creatinine for GFR 0.91 mg/dL 0.55-1 .30 mg/dL [facility]: [address] [facility] Normal Glomerular Filtration Rate > 60.0 >4 5 [facility]: [address] [facility] Low Sodium Level 134 mEq/L 136-145 mEq/L [facility]: [address] [facility] Normal Potassium Serum 4.2 mEq/L 3.5-5.1 mE q/L [facility]: [address] [facility] Normal Chloride Level 100 mEq/L 98-107 mEq/ L [facility]: [address] [facility] Normal Carbon Dioxide Level 28 mEq/L 21-32 mEq/L [facility]: [address] [facility] Low Anion Gap 6 mEq/L 8-16 mEq/L [facility]: [address] [facility] Normal Calcium Level 8.8 mg/dL 8.8-10.2 mg/ dL [facility]: 0 [facility] 01/01/2021 Amylase, Serum or Plasma Normal Amylase 50 U/L 25-115 U/L [facility]: 0 [facility] 01/01/2021 C Reactive Protein, QN, Serum or Plasma High C Reactive Protein Quantitativ 7.21 mg/dL 0.00-0.30 mg/dL [facility]: [address] [place] [address] 01/01/2021 Respiratory Virus Panel NASOPHARYNX No observ ation recorded. [facility]: [address] [place] [address] 01/01/2021 Culture, Blood BLOOD No observation recorded. [facility]: [address] [place] [address] 01/01/2021 Culture, Blood BLOOD No observation recorded. [facility]: [address] [place] [address] 12/23/2020 Glucose, Fingerstick, Blood High Bedside Glucose 302 mg/dL 80- 115 mg/dL [facility]: 83 0 [facility] 12/23/2020 CBC W/ Auto Diff High White Blood Count 11.8 10 4.0-10.0 10 [facility]: [address] [facility] Normal Red Blood Count 4.18 10 4.00-5.40 10 [facility]: [address] [facility] Low Hemoglobin 10.3 g/dL 12.0-15.5 g/dL [facility]: [address] [facility] Low Hematocrit 33.4 % 36.0-47.0 % [facility]: [address] [facility] Low Mean Corpuscular Volume 79.9 fL 80.0 -96.0 fL [facility]: [address] [facility] Low Mean Corpuscular Hemoglobin 24.6 pg 27.0-33.0 pg [facility]: [address] [facility] Low Mean Corpuscular HGB Conc 30.8 g/dL 32.0-36.5 g/dL [facility]: [address] [facility] Normal Red Cell Distribution Width 13.9 % 1 1.5-14.5 % [facility]: [address] [facility] High Platelet Count, Automated 462 10 150 -450 10 [facility]: [address] [facility] High Neutrophils % 84.2 % 36.0-66.0 % [facility]: [address] [facility] Low Lymph % 8.2 % 24.0-44.0 % [facility]: [address] [facility] High [place] % 6.3 % 0.0-5.0 % [facility]: [address] [facility] Normal Eos % 0.5 % 0.0-3.0 % [facility]: [address] [facility] Normal Baso % 0.3 % 0.0-1.0 % [facility]: [address] [facility] Normal Immature Granulocyte % 0.5 % 0-3.0 % [facility]: [address] [facility] Normal Nucleated Red Blood Cell % 0.0 % 0- 0 % [facility]: [address] [facility] High Neutrophils # 9.9 10 1.5-8.5 10 [facility]: [address] [facility] Low Lymph # 1.0 10 1.5-5.0 10 [facility]: [address] [facility] Normal [place] # 0.7 10 0.0-0.[address] [facility]: [address] [facility] Normal Eos # 0.1 10 0.0-0.5 10 [facility]: [address] [facility] Normal Baso # 0.0 10 0.0-0.[address] [facility]: [address] [facility] 12/10/2020 Glucose, Fingerstick, Blood High Bedside Glucose 185 mg/dL 80- 115 mg/dL [facility]: 83 0 [facility] 12/10/2020 Cbc High White Blood Count 10.6 10 4.0-10 .0 10 [facility]: [address] [facility] Normal Red Blood Count 4.53 10 4.00-5.40 10 [facility]: [address] [facility] Low Hemoglobin 11.1 g/dL 12.0-15.5 g/dL [facility]: [address] [facility] Normal Hematocrit 36.6 % 36.0-47.0 % [facility]: [address] [facility] Normal Mean Corpuscular Volume 80.8 fL 80.0 -96.0 fL [facility]: [address] [facility] Low Mean Corpuscular Hemoglobin 24.5 pg 27.0-33.0 pg [facility]: [address] [facility] Low Mean Corpuscular HGB Conc 30.3 g/dL 32.0-36.5 g/dL [facility]: [address] [facility] Normal Red Cell Distribution Width 14.0 % 1 1.5-14.5 % [facility]: [address] [facility] Normal Platelet Count, Automated 404 10 150 -450 10 [facility]: [address] [facility] Normal Nucleated Red Blood Cell % 0.0 % 0- 0 % [facility]: [address] [facility] 12/10/2020 PT/INR Normal Prothrombin Time 13.6 secon ds 12.5-14.3 seconds [facility]: [address] [facility] Normal Inr 1.02 [facility]: 0 [facility] 12/10/2020 BMP, Serum or Plasma High Glucose, Fastin g 182 mg/dL 70-100 mg/dL [facility]: 83 0 [facility] Normal Blood Urea Nitrogen 14 mg/dL 7-18 mg /dL [facility]: 0 [facility] Normal Creatinine for GFR 0.95 mg/dL 0.55-1 .30 mg/dL [facility]: [address] [facility] Normal Glomerular Filtration Rate > 60.0 >4 5 [facility]: [address] [facility] Normal Sodium Level 136 mEq/L 136-145 mEq/L [facility]: 0 [facility] Normal Potassium Serum 4.1 mEq/L 3.5-5.1 mE q/L [facility]: [address] [facility] Normal Chloride Level 100 mEq/L 98-107 mEq/ L [facility]: [address] [facility] Normal Carbon Dioxide Level 30 mEq/L 21-32 mEq/L [facility]: 0 [facility] Low Anion Gap 6 mEq/L 8-16 mEq/L [facility]: 0 [facility] Normal Calcium Level 9.6 mg/dL 8.8-10.2 mg/ dL [facility]: [address] [facility] 12/10/2020 Glucose, Fingerstick, Blood High Bedside Glucose 148 mg/dL 80- 115 mg/dL [facility]: 83 0 [facility] 09/17/2020 Glucose, Fingerstick, Blood High Bedside Glucose 167 mg/dL 80- 115 mg/dL [facility]: 83 0 [facility] 09/17/2020 Glucose, Fingerstick, Blood High Bedside Glucose 194 mg/dL 80- 115 mg/dL [facility]: 83 0 [facility] 09/17/2020 Glucose, Fingerstick, Blood High Bedside Glucose 141 mg/dL 80- 115 mg/dL [facility]: 83 0 [facility] 06/05/2020 Cbc Normal White Blood Count 6.5 10 4.0-10. 0 10 [facility]: [address] [facility] Normal Red Blood Count 4.80 10 4.00-5.40 10 [facility]: [address] [facility] Low Hemoglobin 9.9 g/dL 12.0-15.5 g/dL F inal [facility]: [address] [facility] Low Hematocrit 32.5 % 36.0-47.0 % [facility]: 0 [facility] Low Mean Corpuscular Volume 79.7 fL 80.0 -96.0 fL [facility]: [address] [facility] Low Mean Corpuscular Hemoglobin 24.3 pg 27.0-33.0 pg [facility]: 0 [facility] Low Mean Corpuscular HGB Conc 30.5 g/dL 32.0-36.5 g/dL [facility]: [address] [facility] Normal Red Cell Distribution Width 14.1 % 1 1.5-14.5 % [facility]: 0 [facility] Normal Platelet Count, Automated 380 10 150 -450 10 [facility]: [address] [facility] 06/05/2020 BMP, Serum or Plasma High Glucose, Fastin g 206 mg/dL 70-100 mg/dL [facility]: 83 0 [facility] Normal Blood Urea Nitrogen 9 mg/dL 7-18 mg/ dL [facility]: [address] [place] [address] Normal Creatinine for GFR 0.85 mg/dL 0.55-1 .30 mg/dL [facility]: 0 [facility] Normal Glomerular Filtration Rate > 60.0 >4 5 [facility]: [address] [facility] Normal Sodium Level 137 mEq/L 136-145 mEq/L [facility]: [address] [place] [address] Normal Potassium Serum 4.4 mEq/L 3.5-5.1 mE q/L [facility]: [address] [place] [address] Normal Chloride Level 103 mEq/L 98-107 mEq/ L [facility]: [address] [place] [address] Normal Carbon Dioxide Level 28 mmol/L 20-29 mmol/L [facility]: [address] [place] [address] Low Anion Gap 6 mEq/L 8-16 mEq/L [facility]: [address] [place] [address] Normal Calcium Level 9.1 mg/dL 8.8-10.2 mg/ dL [facility]: [address] [place] [address] 06/05/2020 C Reactive Protein, QN, Serum or Plasma High C Reactive Protein Quantitativ 4.17 mg/dL 0.00-0.30 mg/dL [facility]: [address] [place] [address] 06/02/2020 Wound Culture FOOT No observation recorded. [facility]: [address] [place] [address] 06/02/2020 Culture, Anaerobic FOOT No observation recorde d. [facility]: [address] [place] [address] 06/02/2020 Wound Culture FOOT Wound Culture test not pe rformed [facility]: [address] [place] [address] 06/02/2020 Wound Culture FOOT No observation recorded. [facility]: [address] [place] [address] Past Encounters 06/30/2021 Mateo Disease-like Syndrome; Adult Health Examination; Type II Diabetes Mellitus Uncontrolled; Severe Obesity MARYLU Padilla-BC: [address] [place] [id number], Ph. 03/11/2021 SARS-CoV-2 Vaccination French Martinez MD: [address] [place] [phone], Ph. 01/22/2021 Type II Diabetes Mellitus Uncontrolled; Severe Obesity; [place]'s Chorea; Impaired Mobility; Open Wound of Foot; Mixed Anxiety and Depressive Disorder Jazmynera Morse [facility]: [address] [place] [address], Ph. 09/07/2020 Hypertensive Disorder; Vitamin D Deficiency; Severe Obesity; Iron Deficiency Anemia; Type II Diabetes Mellitus Uncontrolled; [place]'s Chorea Jazmynera Morse [facility]: [address] [place] [phone], Ph. Social History Tobacco Smoking Status Never Smoker Vaccine List Vaccine Type COVID-19 vaccine, vector-nr, [id number], PF , 0.5 mL 10.5 mL Influenza, injectable, MDCK, preservativ e free, quadrivalent 08/06/20200.5 mL influenza, seasonal, injectable 08/06/2015 08/06/20150.5 mL pneumococcal polysaccharide PPV23 08/07/20140.5 mL Plan of Care Patient Instructions Physical exam done today. Please continu e medications as prescribed. Please continue healthy diet and physical activities. Please try to limit sugars and carbohydrates in your diet. Please try to maintain adequate intake of water daily. Please continue medications as prescribe d. Please try to maintain good nutrition, adequate rest, adequate physical activities and adequate intake of water daily. We are requesting home health services through your insurance to assist with ADLs at home. Please continue to follow with imcu specialist as scheduled. Reminders Provider Appointments None recorded. Lab None recorded. Referral None recorded. Procedures None recorded. Surgeries None recorded. Imaging None recorded. Vitals 06/30/2021 11:00AM MEDICARE ANNUAL WELLNESS Height Weight BMI Blood Pressure 67.5 in 125/80 mm[Hg] 01/22/2021 11:20AM ESTABLISHED [id number] Height Weight BMI Blood Pressure 67.5 in 274 lbs 42.3 kg/m2 101/56 mm[Hg] 09/07/2020 01:00PM ESTABLISHED [id number] Height Weight BMI Blood Pressure 67.5 in 292 lbs 6.4 oz 45.1 kg/m2 124/59 mm[Hg ] 08/06/2020 Height Weight BMI Blood Pressure 67.5 in 290 lbs 44.91 kg/m2 108/66 mm[Hg] 01/06/2020 Height Weight BMI Blood Pressure 67.5 in 312 lbs 4 oz 48.36 kg/m2 128/58 mm[Hg] 04/10/2019 Height Weight BMI Blood Pressure 67.5 in 315 lbs 48.78 kg/m2 139/68 mm[Hg] 12/11/2018 Height Weight BMI Blood Pressure 67.5 in 315 lbs 4.96 oz 48.83 kg/m2 150/78 mm[H g] 12/04/2018 Height Weight BMI Blood Pressure 67.5 in 322 lbs 49.87 kg/m2 151/91 mm[Hg]
--- OUTSIDE RECORDS SUMMARY | 2021-09-27 11:02 | CCD ---
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 Active confirmed 111359533 Problem Non-pressure chronic ulcer o f left heel and midfoot with fat layer exposed L97.422 Active confirmed 907022214 Problem Acute osteomyelitis of right calcaneus M86.171 A ctive confirmed 933156065 Problem Onychomycosis of toenail B35.1 Active confirmed 958809706 Problem 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69 Active confirmed 898720455 Problem Tinea unguium B35.1 Active confirmed 952373 005 ALLERGIES Allergen (clinical drug ingredient) Drug/Non Drug Allergy do cumented on EMR Reaction Allergy Type Onset Date Status Hydrochlorothiazide-12.5 mg dizziness Drug Allergy Active ENCOUNTERS from 1959 to 2021-08-16 Encounter Location Date Provider Diagnosis [facility] Wound Care [address] [phone] [place] [address] Aug, Pauly Burger Type 2 diabetes mellitus wit [...] Aug, BMI 44.72 kg/m2 Aug, Heart Rate 107 /min Aug, Respiratory Rate 18 /min Aug, Temperature 98.1 degrees Fahrenheit Aug, Oximetry 95 Aug, Blood pressure systolic 122 mm Hg Aug, Blood pressure diastolic 94 mm Hg Aug, MEDICATIONS Medication SIG (Take, Route, Frequency, Duration) Notes Start Da te End Date Status Clopidogrel Bisulfate 75 MG TAKE ONE TABLET BY MOUTH EVERY DAY Oral for 90 Active Glucostix glucose strip 1 strip daily for 30 day(s) Apr Active risperiDONE 0.25 MG 1 tab Orally Once a day Active Lisinopril 10 mg 1 tablet Orally Once a day Active Lantus 100 UNIT/ML 45 units Subcutaneous twice daily Active Eliquis 5 MG as directed Orally bid Active SM Aspirin Adult Low Strength 81 MG TAKE ONE TABLET BY MOUTH EVERY DAY Oral for 30 every other day Active DOK 100 MG 1 capsule as needed Orally Once a day Active Dulcolax Balance 1200 mg soft chews Active Duricef 500 mg 2 tablets oral Daily for 10 day(s) Not-Taking PROCEDURES from 1959 to 2021-08-16 Procedure Date Ordered Result Body Site Medication: 4% Lidocaine topical cream (Anecream) 5gm 2021-08-13 N/A RESULTS No Results REASON FOR VISIT [...] documented in the procedure note. 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 The dressing should follow those documented in the procedure note. vashe lot: [id number] exp:07/04 Next Appt Details 1 Week Reason: Provider Name:Pauly Burger, 08-20 02:30:00 PM, [address], , [place], [address], Provider Name:Jan Ning Raya, 2021-08-24 09 :00:00 AM, [address], , [place], [address], Insurance Providers Payer Name Payer Address Payer Phone Insured Name Patient Relati onship to Insured Coverage Start Date Coverage End Date MEDICARE COMPLETE [employer] [address] [address] [facility] [id number] MARCELL MATOS self MEDICAID [facility] [address] [facility] [address] MARCELL MATOS self
--- OUTSIDE RECORDS SUMMARY | 2021-09-27 11:02 | CCD ---
Author Author [facility] Organization [facility] Address Unknown Phone Unavailable Care Team Providers Care Butcher Head Name Role Phone Pauly Burger Unavailable PROBLEMS Type Condition ICD9-CM Code [id number] Code Onset Dates Condition S tatus W/U Status Risk SNOMED Code Notes Problem Non-pressure chronic ulcer o f right 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 L97.411 Active confirmed 619986694 Problem Non-pressure chronic ulcer o f left heel and midfoot with fat layer exposed L97.422 Active confirmed 130826333 Problem Acute osteomyelitis of right calcaneus M86.171 A ctive confirmed 721661816 Problem 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 Active confirmed 580150662 Problem Tinea unguium B35.1 Active confirmed 459763 005 Problem Type 2 diabetes mellitus with foot ulcer E11.621 Active confirmed 914254342 Problem 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 Active confirmed 596052345 Problem Non-pressure chronic ulcer o f other part of right foot with fat layer exposed L97.512 Active confirmed 576883506 Problem Onychomycosis of toenail B35.1 Active confirmed 164723421 Problem Essential hypertension I10 Active confirmed 88170138 Problem Type 2 diabetes mellitus with other specified complication E11.69 Active confirmed 931398711 Problem Type 1 diabetes mellitus with other specified complication E10.69 Active confirmed 783943724 ALLERGIES Allergen (clinical drug ingredient) Drug/Non Drug Allergy do cumented on EMR Reaction Allergy Type Onset Date Status Hydrochlorothiazide-12.5 mg dizziness Drug Allergy Active ENCOUNTERS from 1959 to 2021-07-02 Encounter Location Date Provider Diagnosis [facility] Wound Care [address] [phone] [place] [address] Jun, Pauly Burger Type 2 diabetes mellitus wit [...] No Information VITAL SIGNS Weight 275 lbs Jun, Height 5'5 3/4" in Jun, BMI 44.72 kg/m2 Jun, Heart Rate 104 /min Jun, Respiratory Rate 18 /min Jun, Temperature 98.4 degrees Fahrenheit Jun, Oximetry 100 Jun, Blood pressure systolic 136 mm Hg Jun, Blood pressure diastolic 58 mm Hg Jun, MEDICATIONS Medication SIG (Take, Route, Frequency, Duration) Notes Start Da te End Date Status Dulcolax Balance 1200 mg soft chews Active DOK 100 MG 1 capsule as needed Orally Once a day Active Clopidogrel Bisulfate 75 MG TAKE ONE TABLET BY MOUTH EVERY DAY Oral for 90 Active Duricef 500 mg 2 tablets oral Daily for 10 day(s) Active Eliquis 5 MG as directed Orally bid Active risperiDONE 0.25 MG 1 tab Orally Once a day Active Lantus 100 UNIT/ML 45 units Subcutaneous twice daily Active SM Aspirin Adult Low Strength 81 MG TAKE ONE TABLET BY MOUTH EVERY DAY Oral for 30 every other day Active Lisinopril 10 mg 1 tablet Orally Once a day Active Glucostix glucose strip 1 strip daily for 30 day(s) Apr Active PROCEDURES from 1959 to 2021-07-02 Procedure Date Ordered Result Body Site Medication: [...] 09/17/2020 Surgical History right heel debridement 01/03/21 Hospitalization History pulmonary emboli 02/20/2010 Hospitalization History LEFT FOOT WOUND 05/2020 Hospitalization History rt heel wound 01/01/21-01/12/21 Goals Section No Information Health Concerns No Information MEDICAL EQUIPMENT No Information MENTAL STATUS No Information FUNCTIONAL STATUS No Information ASSESSMENTS Encounter Date Diagnosis Assessment Notes Treatment Notes Treatm ent Clinical Notes Jun, Type 2 diabetes mellitus with foot ulcer (ICD-10 - E11.621) Dressing changes 3x a week. The dressing should follow those documented in the procedure note. 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 The dressing should follow those documented in the procedure note. vashe lot: [id number] exp:07/04 Next Appt Details 1 Week Reason: Provider Name:Pauly Burger, 07-08 11:00:00 AM, [address], , [place], [address], Provider Name:Jan Raya, 2021-08-24 09 :00:00 AM, [address], , [place], [address], Insurance Providers Payer Name Payer Address Payer Phone Insured Name Patient Relati onship to Insured Coverage Start Date Coverage End Date MEDICARE COMPLETE UNITED [employer] [address] [address] [facility] [phone] MARCELL MATOS self MEDICAID [employer] [address] [facility] [address] MARCELL MATOS self
--- OUTSIDE RECORDS SUMMARY | 2021-09-27 11:02 | CCD ---
Author Author [facility] Organization [facility] Address Unknown Phone Unavailable Care Team Providers Care Sales Account Specialist Name Role Phone Pauly Burger Unavailable PROBLEMS Type Condition ICD9-CM Code [id number] Code Onset Dates Condition S tatus W/U Status Risk SNOMED Code Notes Problem Non-pressure chronic ulcer o f right 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 L97.411 Active confirmed 554222898 Problem Non-pressure chronic ulcer o f left heel and midfoot with fat layer exposed L97.422 Active confirmed 711729832 Problem Acute osteomyelitis of right calcaneus M86.171 A ctive confirmed 855678581 Problem 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 Active confirmed 696372518 Problem Tinea unguium B35.1 Active confirmed 471282 005 Problem Type 2 diabetes mellitus with foot ulcer E11.621 Active confirmed 782768308 Problem 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 Active confirmed 532564950 Problem Non-pressure chronic ulcer o f other part of right foot with fat layer exposed L97.512 Active confirmed 049002214 Problem Onychomycosis of toenail B35.1 Active confirmed 974800448 Problem Essential hypertension I10 Active confirmed 40501411 Problem Type 2 diabetes mellitus with other specified complication E11.69 Active confirmed 249820219 Problem Type 1 diabetes mellitus with other specified complication E10.69 Active confirmed 992463778 ALLERGIES Allergen (clinical drug ingredient) Drug/Non Drug Allergy do cumented on EMR Reaction Allergy Type Onset Date Status Hydrochlorothiazide-12.5 mg dizziness Drug Allergy Active ENCOUNTERS from 1959 to 2021-07-09 Encounter Location Date Provider Diagnosis [facility] Wound Care [address] [phone] [place] [address] Jun, Pauly Burger Type 2 diabetes mellitus [...] Jun, BMI 44.72 kg/m2 Jun, Heart Rate 88 /min Jun, Respiratory Rate 18 /min Jun, Temperature 97.9 degrees Fahrenheit Jun, Oximetry 97 Jun, Blood pressure systolic 122 mm Hg Jun, Blood pressure diastolic 85 mm Hg Jun, MEDICATIONS Medication SIG (Take, Route, Frequency, Duration) Notes Start Da te End Date Status Glucostix glucose strip 1 strip daily for 30 day(s) Apr Active Eliquis 5 MG as directed Orally bid Active Duricef 500 mg 2 tablets oral Daily for 10 day(s) Active SM Aspirin Adult Low Strength 81 MG TAKE ONE TABLET BY MOUTH EVERY DAY Oral for 30 every other day Active Dulcolax Balance 1200 mg soft chews Active Lantus 100 UNIT/ML 45 units Subcutaneous twice daily Active Clopidogrel Bisulfate 75 MG TAKE ONE TABLET BY MOUTH EVERY DAY Oral for 90 Active risperiDONE 0.25 MG 1 tab Orally Once a day Active DOK 100 MG 1 capsule as needed Orally Once a day Active Lisinopril 10 mg 1 tablet Orally Once a day Active PROCEDURES from 1959 to 2021-07-09 Procedure Date Ordered Result Body Site Medication: 4% Lidocaine topical cream (Anecream) 5gm 2021-07-08 N/A RESULTS No Results REASON FOR VISIT [...] documented in the procedure note. paula lot: [id number] exp:07/04Jun, Non-pressure chronic ulcer o f left [...] documented in the procedure note. vashe lot: [id number] exp:07/04 Next Appt Details 1 Week Reason: Provider Name:Pauly Burger, 07-16 01:30:00 PM, [address], , [place], [address], Provider Name:Jan Raya, 2021-08-24 09 :00:00 AM, [address], , [place], [address], Insurance Providers Payer Name Payer Address Payer Phone Insured Name Patient Relati onship to Insured Coverage Start Date Coverage End Date MEDICAID [employer] [address] [facility] [address] MARCELL MATOS MEDICARE COMPLETE UNITED HEALTHCARE [address] [address] [facility] [id number] MARCELL MATOS self
--- OUTSIDE RECORDS SUMMARY | 2021-09-27 11:02 | CCD ---
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 Active confirmed 502332721 Problem Non-pressure chronic ulcer o f right 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 L97.411 Active confirmed 453147376 Problem Type 2 diabetes mellitus with foot ulcer E11.621 Active confirmed 198626434 Problem Onychomycosis of toenail B35.1 Active confirmed 493506717 Problem Non-pressure chronic ulcer o f left heel and midfoot with fat layer exposed L97.422 Active confirmed 112044532 Problem Type 2 diabetes mellitus with other specified complication E11.69 Active confirmed 252839831 Problem Tinea unguium B35.1 Active confirmed 634948 005 Problem 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 Active confirmed 222713296 Problem Mateo's disease G10 Active confirmed 29178762 Problem Acute osteomyelitis of right calcaneus M86.171 A ctive confirmed 527442421 Problem Non-pressure chronic ulcer o f other part of left foot with fat layer exposed L97.522 Active confirmed 197354183 Problem Essential hypertension I10 Active confirmed 80148265 Problem Breast cancer screening by mammogram Z12.31 Act ronna confirmed 822920057 Problem Huntingtons chorea G10 Active confirmed 5 9122082 Problem Chronic deep vein thrombosis (DVT) of femoral vein of right lower extremity I82.511 Active confirmed 704772916223467 Problem Essential (primary) hypertension I10 Active conf irmed 43338914 ALLERGIES Allergen (clinical drug ingredient) Drug/Non Drug Allergy do cumented on EMR Reaction Allergy Type Onset Date Status hydrochlorothiazide Hydrochlorothiazide Dizziness Drug Allergy Active ENCOUNTERS from 1959 to 2021-08-26 Encounter Location Date Provider Diagnosis [facility] [address] [phone] [place] [address] 12 Aug, 2021 Jan Raya Type 2 diabetes mellitus with foot ulcer E11.621 ; Chronic deep vein thrombosis (DVT) of femoral vein of right lower extremity I82.511 ; Memphis's disease G10 ; Essential (primary) hypertension I10 ; Breast cancer screening by mammogram Z12.31 and Encounter for immunization Z23 IMMUNIZATIONS Vaccine Route Administration Date Status /Liquid Spins COVID-19 (given elsewhere) RS-COV-2 vaccine, vector non- replicating, recombinant spike [...] FOR REFERRAL No Information VITAL SIGNS Weight 273.4 lbs 12 Oct, 2021 Height 5'5 3/4" in Aug, BMI 44.46 kg/m2 Aug, Heart Rate 68 /min Aug, Respiratory Rate 20 /min Aug, Temperature 97.8 degrees Fahrenheit Aug, Oximetry 100 Aug, Blood pressure systolic 120 mm Hg Aug, Blood pressure diastolic 60 mannual cuff mm Hg Aug, MEDICATIONS Medication SIG (Take, [...] 2021-08-26 Procedure Date Ordered Result Body Site Imm: Pneumovax 23 0.5mL IM Pneumococcal 2021-08-24 N/A Imm: Flublok Quadrivalent 18 years & older 0.5mL IM Influenza 20 02-09-12 N/A RESULTS Component Value Reference Range HEMOGLOBIN A1c Reviewed date:08/25/2021 07:13:27 Interpretation:Normal Performing Lab:[facility] [address] [facility] [address] , ,[place] [address] HEMOGLOBIN A1c 6.0 ESTIMATED AVERAGE GLUCOSE 126 60-110 MICROALBUMIN RANDOM Reviewed date:08/25/2021 07:13:27 Interpretation:Normal Performing Lab:[facility] [address] [facility] [address] , ,[place] [address] CREATININE, URINE 142.0 MALB URINE SIEMENS 7.4 VIET/CREAT RATIO 5.2 0.0-30.0 CBC with Auto Differential Reviewed date:08/25/2021 07:13:27 Interpretation:Abnormal Performing Lab:[facility] [address] [id number] , ,[place] [address] WHITE BLOOD COUNT 8.0 4.0-10.0 RED BLOOD COUNT 4.37 4.00-5.40 HEMOGLOBIN 11.1 12.0-15.5 HEMATOCRIT 36.6 36.0-47.0 MEAN CORPUSCULAR VOLUME 83.8 80.0-96.0 MEAN CORPUSCULAR HEMOGLOBIN 25.4 27.0-33.0 MEAN CORPUSCULAR HGB CONC 30.3 32.0-36.5 RED CELL DISTRIBUTION WIDTH 14.1 11.5-14.5 PLATELET COUNT, AUTOMATED 358 150-450 NEUTROPHILS % 66.2 36.0-66.0 LYMPH % 22.8 24.0-44.0 MONO % 8.1 2.0-8.0 EOS % 2.0 0.0-3.0 BASO % 0.6 0.0-1.0 IMMATURE GRANULOCYTE % 0.3 0-3.0 NUCLEATED RED BLOOD CELL % 0.0 0-0 NEUTROPHILS # 5.3 1.5-8.5 LYMPH # 1.8 1.5-5.0 MONO # 0.6 0.0-0.8 EOS # 0.2 0.0-0.5 BASO # 0.1 0.0-0.2 REASON FOR VISIT re establish care MEDICAL (GENERAL) HISTORY Type Description Date Medical [...] mellitus with foot ulcer (ICD-10 - E11.621) Aug, Chronic deep vein thrombosis (DVT) of femoral vein of right lower extremity (ICD-10 - I82.511) Aug, 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 We will try to find when she had most recent Pap at [facility] Aug, Encounter for immunization (ICD-10 - Z23) Patient Educated with: PPSV23 [id number] (PPSV23 [id number].pdf) Patient Educated with: Flu Recombinant [id number] (Flu Recombinant [id number].pdf) PLAN OF TREATMENT Medication Medication Name Sig Start Date Stop Date Glucostix glucose strip 1 strip daily Apr, SM Aspirin Adult Low Strength 81 MG TAKE ONE TABLET BY MOUTH MATEUS DAY Oral risperiDONE 0.25 MG 1 tab Orally Once a day Lantus 100 UNIT/ML 45 units Subcutaneous twice daily Lisinopril 10 mg 1 tablet Orally Once a day DOK 100 MG 1 cap Orally Once a day Eliquis 5 MG 1 tab Orally bid Treatment Notes Assessment Notes Clinical Notes Breast cancer screening by mammogram Patient chose not to have mammogram done at this time.We will try to find when she had most recent Pap at [facility]) Encounter for immunization Patient Educated with: PPSV 23 [id number] (PPSV23 [id number].pdf) Patient Educated with: Flu Recombinant [id number] (Flu Recombinant [id number].pdf) Treatment Notes Test Name Order Date Comprehensive Metabolic Profile (CMP) 2021-08-24 LIPID PANEL (CARDIAC RISK) 2021-08-24 Future Test Test Name Order Date [facility] Geovanny Screening Bilateral (Ultrasound if Indicated ) (3D Mammo) [id number] Next Appt Details 3 Months Reason: Provider Name:Pauly Burger, 08-27 02:30:00 PM, [address], , [place], [address], Provider Name:Jan Raya, 2021-11-25 09 :30:00 AM, [address] , , [place], [address], Insurance Providers Payer Name Payer Address Payer Phone Insured Name Patient Relati onship to Insured Coverage Start Date Coverage End Date MEDICARE COMPLETE [employer] [address] [address] [facility] [address] MARCELL MATOS self MEDICAID [facility] [address] [facility] [id number] MARCELL MATOS self
--- OUTSIDE RECORDS SUMMARY | 2021-09-27 11:02 | CCD ---
Author Author [facility] Organization [facility] Address Unknown Phone Unavailable Care Team Providers Care Vice President Integrated Name Role Phone Pauly Burger Unavailable PROBLEMS Type Condition ICD9-CM Code [id number] Code Onset Dates Condition S tatus W/U Status Risk SNOMED Code Notes Problem Non-pressure chronic ulcer o f right 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 L97.411 Active confirmed 961973425 Problem Non-pressure chronic ulcer o f left heel and midfoot with fat layer exposed L97.422 Active confirmed 220774805 Problem Acute osteomyelitis of right calcaneus M86.171 A ctive confirmed 904169226 Problem 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 Active confirmed 826611496 Problem Tinea unguium B35.1 Active confirmed 264539 005 Problem Type 2 diabetes mellitus with foot ulcer E11.621 Active confirmed 869194364 Problem 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 Active confirmed 384645526 Problem Non-pressure chronic ulcer o f other part of right foot with fat layer exposed L97.512 Active confirmed 702596591 Problem Onychomycosis of toenail B35.1 Active confirmed 342296554 Problem Essential hypertension I10 Active confirmed 20113023 Problem Type 2 diabetes mellitus with other specified complication E11.69 Active confirmed 937199093 Problem Type 1 diabetes mellitus with other specified complication E10.69 Active confirmed 490740331 ALLERGIES Allergen (clinical drug ingredient) Drug/Non Drug Allergy do cumented on EMR Reaction Allergy Type Onset Date Status Hydrochlorothiazide-12.5 mg dizziness Drug Allergy Active ENCOUNTERS from 1959 to 2021-07-20 Encounter Location Date Provider Diagnosis [facility] Wound Care [address] [phone] [place] [address] Jul, Pauly Burger Type 2 diabetes mellitus [...] Jul, BMI 44.72 kg/m2 Jul, Heart Rate 93 /min Jul, Respiratory Rate 18 /min Jul, Temperature 98.5 degrees Fahrenheit Jul, Oximetry 99 Jul, Blood pressure systolic 158 mm Hg Jul, Blood pressure diastolic 90 mm Hg Jul, MEDICATIONS Medication SIG (Take, Route, Frequency, Duration) Notes Start Da te End Date Status Lisinopril 10 mg 1 tablet Orally Once a day Active SM Aspirin Adult Low Strength 81 MG TAKE ONE TABLET BY MOUTH EVERY DAY Oral for 30 every other day Active Dulcolax Balance 1200 mg soft chews Active risperiDONE 0.25 MG 1 tab Orally Once a day Active Glucostix glucose strip 1 strip daily for 30 day(s) Apr Active Clopidogrel Bisulfate 75 MG TAKE ONE TABLET BY MOUTH EVERY DAY Oral for 90 Active Eliquis 5 MG as directed Orally bid Active Lantus 100 UNIT/ML 45 units Subcutaneous twice daily Active Duricef 500 mg 2 tablets oral Daily for 10 day(s) Active DOK 100 MG 1 capsule as needed Orally Once a day Active PROCEDURES from 1959 to 2021-07-20 Procedure Date Ordered Result Body Site Medication: [...] documented in the procedure note. paula lot: [id number] exp:07/04Jul, Non-pressure chronic ulcer o f left [...] documented in the procedure note. vashe lot: [id number] exp:07/04 Next Appt Details 1 Week Reason: Provider Name:Pauly Burger, 07-23 02:15:00 PM, [address], , [place], [address], Provider Name:Jan Raya, 2021-08-24 09 :00:00 AM, [address], , [place], [address], Insurance Providers Payer Name Payer Address Payer Phone Insured Name Patient Relati onship to Insured Coverage Start Date Coverage End Date MEDICAID [employer] [address] [facility] [id number] MARCELL MATOS MEDICARE COMPLETE UNITED [employer] [address] [address] [facility] [id number] MARCELL MATOS self
--- OUTSIDE RECORDS SUMMARY | 2021-09-27 11:02 | CCD ---
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 Active confirmed 940944312 Problem Non-pressure chronic ulcer o f right 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 L97.411 Active confirmed 154724129 Problem Type 2 diabetes mellitus with foot ulcer E11.621 Active confirmed 019869873 Problem Onychomycosis of toenail B35.1 Active confirmed 361387997 Problem Non-pressure chronic ulcer o f left heel and midfoot with fat layer exposed L97.422 Active confirmed 516467744 Problem Type 2 diabetes mellitus with other specified complication E11.69 Active confirmed 609926652 Problem Tinea unguium B35.1 Active confirmed 047439 005 Problem 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 Active confirmed 047997431 Problem [place]'s disease G10 Active confirmed 10381405 Problem Acute osteomyelitis of right calcaneus M86.171 A ctive confirmed 192418890 Problem Non-pressure chronic ulcer o f other part of left foot with fat layer exposed L97.522 Active confirmed 088348408 Problem Essential hypertension I10 Active confirmed 10323112 Problem Breast cancer screening by mammogram Z12.31 Act ronna confirmed 658608905 Problem Huntingtons chorea G10 Active confirmed 5 0507842 Problem Chronic deep vein thrombosis (DVT) of femoral vein of right lower extremity I82.511 Active confirmed [id number] Problem Essential (primary) hypertension I10 Active conf irmed 52371766 ALLERGIES Allergen (clinical drug ingredient) Drug/Non Drug Allergy do cumented on EMR Reaction Allergy Type Onset Date Status hydrochlorothiazide Hydrochlorothiazide Dizziness Drug Allergy Active ENCOUNTERS from 1960 to 2021-08-25 Encounter Location Date Provider Diagnosis [facility] Damon RAZA [phone] [place] [address] Aug, 2021 Jan Raya Anemia, unspecified type D64.9 IMMUNIZATIONS Vaccine Route Administration Date Status Influenza 18 yrs & older Flublok IM Intramuscular Aug 24, 2021 Administered Influenza 18 yrs & older Flublok Unknown Aug 21, 2020 Others [employer] COVID-19 (given elsewhere) SA RS-COV-2 vaccine, vector non- replicating, recombinant spike protein-Ad26, preservative free, 0.5 mL Unknown March 11, 2021 Administered Pneumococcal Adult 0.5mL Pneumovax 23 IM Intramuscular [...] EVERY DAY Oral for 90 Not-Taking PROCEDURES No Information RESULTS No Results [...] Treatment Notes Treatm ent Clinical Notes Aug, Anemia, unspecified type (ICD-10 - D64.9) PLAN OF TREATMENT Medication Medication Name Sig [...] MG 1 tab Orally bid Treatment Notes Test Name Order Date FOLATE 2021-08-25 IRON (FE) 2021-08-25 VITAMIN B12 LEVEL 2021-08-25 Next Appt Details Provider Name:Pauly Burger, 08-27 02:30:00 PM, [address], , [place], [address], Provider Name:Jan Raya, 2021-11-25 09 :30:00 AM, [address] , , [place], [address], Insurance Providers Payer Name Payer Address Payer Phone Insured Name Patient Relati onship to Insured Coverage Start Date Coverage End Date MEDICARE COMPLETE [employer] [address] [address] [facility] [address] MARCELL MATOS self MEDICAID [employer] [address] [facility] [address] MARCELL MATOS self
--- OUTSIDE RECORDS SUMMARY | 2021-09-27 11:02 | CCD ---
Author Author [facility] Organization [facility] Address Unknown Phone Unavailable Care Team Providers Care Test And Balance Engineer Name Role Phone Pauly Burger Unavailable PROBLEMS Type Condition ICD9-CM Code [id number] Code Onset Dates Condition S tatus W/U Status Risk SNOMED Code Notes Problem Non-pressure chronic ulcer o f right 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 L97.411 Active confirmed 985561352 Problem Non-pressure chronic ulcer o f left heel and midfoot with fat layer exposed L97.422 Active confirmed 039787156 Problem Acute osteomyelitis of right calcaneus M86.171 A ctive confirmed 551011654 Problem 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 Active confirmed 592073205 Problem Tinea unguium B35.1 Active confirmed 185783 005 Problem Type 2 diabetes mellitus with foot ulcer E11.621 Active confirmed 562436737 Problem 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 Active confirmed 425892145 Problem Non-pressure chronic ulcer o f other part of right foot with fat layer exposed L97.512 Active confirmed 381660772 Problem Onychomycosis of toenail B35.1 Active confirmed 570346951 Problem Essential hypertension I10 Active confirmed 74274375 Problem Type 2 diabetes mellitus with other specified complication E11.69 Active confirmed 538564243 Problem Type 1 diabetes mellitus with other specified complication E10.69 Active confirmed 992342345 ALLERGIES Allergen (clinical drug ingredient) Drug/Non Drug Allergy do cumented on EMR Reaction Allergy Type Onset Date Status Hydrochlorothiazide-12.5 mg dizziness Drug Allergy Active ENCOUNTERS from 1959 to 2021-06-29 Encounter Location Date Provider Diagnosis [facility] [address] [phone] [place] [address] Jun, Pauly Burger Type 2 diabetes mellitus [...] Jun, BMI 44.72 kg/m2 Jun, Heart Rate 80 /min Jun, Respiratory Rate 19 /min Jun, Temperature 97.8 degrees Fahrenheit Jun, Oximetry 100 Jun, Blood pressure systolic 140 mm Hg Jun, Blood pressure diastolic 70 mm Hg Jun, MEDICATIONS Medication SIG (Take, Route, Frequency, Duration) Notes Start Da te End Date Status Lantus 100 UNIT/ML 45 units Subcutaneous twice daily Active SM Aspirin Adult Low Strength 81 MG TAKE ONE TABLET BY MOUTH EVERY DAY Oral for 30 every other day Active risperiDONE 0.25 MG 1 tab Orally [...] a day Active PROCEDURES from 1959 to 2021-06-29 Procedure Date Ordered Result Body Site Medication: [...] follow those documented in the procedure note. Patient was instructed to go directly to the ER for evaluation and treatment of right DVT. Spoke to Theresa Rebollar RN of the Taras's desire for evaluation and treatment vashe lot: [id number] exp:07/04Jun, Non-pressure chronic ulcer o f left [...] should follow those documented in the procedure note.Patient was instructed to go directly to the ER for evaluation and treatment of right DVT. Spoke to Theresa Rebollar RN of the diagnosis and Shay's desire for evaluation and treatment vashe lot: [id number] exp:07/04 Next Appt Details go directly to the ER Reason: Provider Name:Pauly Burger, 07-01 02:00:00 PM, [address], , [place], [address], Provider Name:Pauly Burger, 07-08 11:00:00 AM, [address], , [place], [address], Provider Name:Jan Raya, 2021-08-24 09 :00:00 AM, [address] , , [place], [address], Insurance Providers Payer Name Payer Address Payer Phone Insured Name Patient Relati onship to Insured Coverage Start Date Coverage End Date MEDICAID [employer] [address] [facility] [id number] MARCELL MATOS MEDICARE COMPLETE [facility] [address] [address] [facility] [phone] MARCELL MATOS
--- OUTSIDE RECORDS SUMMARY | 2021-09-27 11:02 | CCD ---
Author Author [facility] Organization [facility] Address Unknown Phone Unavailable Care Team Providers Care Computer Forwarding System Markup Clerk Name Role Phone Pauly Burger Unavailable PROBLEMS Type Condition ICD9-CM Code [id number] Code Onset Dates Condition S tatus W/U Status Risk SNOMED Code Notes Problem Non-pressure chronic ulcer o f right 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 L97.411 Active confirmed 461320138 Problem Non-pressure chronic ulcer o f left heel and midfoot with fat layer exposed L97.422 Active confirmed 378612647 Problem Acute osteomyelitis of right calcaneus M86.171 A ctive confirmed 109924011 Problem 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 Active confirmed 834711106 Problem Tinea unguium B35.1 Active confirmed 995618 005 Problem Type 2 diabetes mellitus with foot ulcer E11.621 Active confirmed 482395778 Problem 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 Active confirmed 489301537 Problem Non-pressure chronic ulcer o f other part of right foot with fat layer exposed L97.512 Active confirmed 963387255 Problem Onychomycosis of toenail B35.1 Active confirmed 668977304 Problem Essential hypertension I10 Active confirmed 35706975 Problem Type 2 diabetes mellitus with other specified complication E11.69 Active confirmed 296577061 Problem Type 1 diabetes mellitus with other specified complication E10.69 Active confirmed 395180880 ALLERGIES Allergen (clinical drug ingredient) Drug/Non Drug Allergy do cumented on EMR Reaction Allergy Type Onset Date Status Hydrochlorothiazide-12.5 mg dizziness Drug Allergy Active ENCOUNTERS from 1959 to 2021-08-03 Encounter Location Date Provider Diagnosis [facility] [address] [phone] [place] [address] Jul, Pauly Burger Type 2 diabetes mellitus [...] Information VITAL SIGNS Weight 275 lbs Jul, Weight-kg 124.74 kg Jul, Height 5'5 3/4" in Jul, BMI 44.72 kg/m2 Jul, Heart Rate 85 /min Jul, Respiratory Rate 17 /min Jul, Temperature 97.5 degrees Fahrenheit Jul, Oximetry 96 Jul, Blood pressure systolic 133 mm Hg Jul, Blood pressure diastolic 60 mm Hg Jul, MEDICATIONS Medication SIG (Take, Route, Frequency, Duration) Notes Start Da te End Date Status Clopidogrel Bisulfate 75 MG TAKE ONE TABLET BY MOUTH EVERY DAY Oral for 90 Active Lantus 100 UNIT/ML 45 units Subcutaneous twice daily Active Dulcolax Balance 1200 mg soft chews Active Duricef 500 mg 2 tablets oral Daily for 10 day(s) Active Glucostix glucose strip 1 strip daily for 30 day(s) Apr Active Lisinopril 10 mg 1 tablet Orally Once a day Active DOK 100 MG 1 capsule as needed Orally Once a day Active SM Aspirin Adult Low Strength 81 MG TAKE ONE TABLET BY MOUTH EVERY DAY Oral for 30 every other day Active risperiDONE 0.25 MG 1 tab Orally Once a day Active Eliquis 5 MG as directed Orally bid Active PROCEDURES from 1959 to 2021-08-03 Procedure Date Ordered Result Body Site Medication: [...] documented in the procedure note. paula lot: [id number] exp:07/04Jul, Non-pressure chronic ulcer o f left [...] documented in the procedure note. vasponce lot: [id number] exp:07/04 Next Appt Details 1 Week Reason: Provider Name:Pauly Burger, 08-06 01:30:00 PM, [address], , [place], [address], Provider Name:Jan Raya, 2021-08-24 09 :00:00 AM, [address], , [place], [address], Insurance Providers Payer Name Payer Address Payer Phone Insured Name Patient Relati onship to Insured Coverage Start Date Coverage End Date MEDICARE COMPLETE [facility] [address] [address] [facility] [phone] MARCELL MATOS self MEDICAID [employer] [address] [facility] [id number] MARCELL MATOS self
--- OUTSIDE RECORDS SUMMARY | 2021-09-27 11:06 | CCD ---
Author Author [facility] Organization [facility] Address Unknown Phone Unavailable Care Team Providers Care Order Entry Name Role Phone Ning Martinez MD Unavailable Unavailable Ning Martinez MD Unavailable Unavailable Ning Martinez MD Unavailable Unavailable Ning Martinez MD Unavailable Unavailable Ning Martinez MD Unavailable Unavailable Ning Martinez MD Unavailable Unavailable Ning Martinez MD Unavailable Unavailable Ning Martinez MD Unavailable Unavailable Ning Martinez MD Unavailable Unavailable Ning Martinez MD Unavailable Unavailable Ning Martinez MD Unavailable Unavailable Ning Martinez MD Unavailable Unavailable Ning Martinez MD Unavailable Unavailable Ning Martinez MD Unavailable Unavailable Ning Martinez MD Unavailable Unavailable Ning Martinez MD Unavailable Unavailable Ning Martinez MD Unavailable Unavailable Ning Martinez MD Unavailable Unavailable Ning Martinez MD Unavailable Unavailable Ning Martinez MD Unavailable Unavailable Ning Martinez MD Unavailable Unavailable Ning Martinez MD Unavailable Unavailable Ning Martinez MD Unavailable Unavailable Ning Martinez MD Unavailable Unavailable Ning Martinez MD Unavailable Unavailable Ning Martinez MD Unavailable Unavailable Ning Martinez MD Unavailable Unavailable Ning Martinez MD Unavailable Unavailable Ning Martinez MD Unavailable Unavailable Ning Martinez MD Unavailable Unavailable Ning Martinez MD Unavailable Unavailable Ning Martinez MD Unavailable Unavailable Ning Martinez MD Unavailable Unavailable Ning Martinez MD Unavailable Unavailable Ning Martinez MD Unavailable Unavailable Ning Martinez MD Unavailable Unavailable Ning Martinez MD Unavailable Unavailable Ning Martinez MD Unavailable Unavailable Ning Martinez MD Unavailable Unavailable Ning Martinez MD Unavailable Unavailable Ning Martinez MD Unavailable Unavailable Ning Martinez MD Unavailable Unavailable Ning Martinez MD Unavailable Unavailable Ning Martinez MD Unavailable Unavailable Ning Martinez MD Unavailable Unavailable Ning Martinez MD Unavailable Unavailable Ning Martinez MD Unavailable Unavailable Ning Martinez MD Unavailable Unavailable Ning Martinez MD Unavailable Unavailable Ning Martinez MD Unavailable Unavailable Ning Martinez MD Unavailable Unavailable Ning Martinez MD Unavailable Unavailable Ning Martinez MD Unavailable Unavailable Ning Martinez MD Unavailable Unavailable Ning Martinez MD Unavailable Unavailable Ning Martinez MD Unavailable Unavailable Ning Martinez MD Unavailable Unavailable Ning Martinez MD Unavailable Unavailable Ning Martinez MD Unavailable Unavailable Ning Martinez MD Unavailable Unavailable Ning Martinez MD Unavailable Unavailable Ning Martinez MD Unavailable Unavailable Ning Martinez MD Unavailable Unavailable Ning Martinez MD Unavailable Unavailable Ning Martinez MD Unavailable Unavailable Ning Martinez MD Unavailable Unavailable Ning Martinez MD Unavailable Unavailable Ning Martinez MD Unavailable Unavailable Ning Martinez MD Unavailable Unavailable Ning Martinez MD Unavailable Unavailable Ning Martinez MD Unavailable Unavailable Ning Martinez MD Unavailable Unavailable Ning Martinez MD Unavailable Unavailable Ning Martinez MD Unavailable Unavailable Ning Martinez MD Unavailable Unavailable Ning Martinez MD Unavailable Unavailable Ning Martinez MD Unavailable Unavailable Ning Martinez MD Unavailable Unavailable Ning Martinez MD Unavailable Unavailable Ning Martinez MD Unavailable Unavailable Ning Martinez MD Unavailable Unavailable Ning Martinez MD Unavailable Unavailable Ning Martinez MD Unavailable Unavailable Ning Martinez MD Unavailable Unavailable Ning Martinez MD Unavailable Unavailable Ning Martinez MD Unavailable Unavailable Ning Martinez MD Unavailable Unavailable Martinez, Ning Braswell MD Unavailable Unavailable Martinez, Ning Braswell MD Unavailable Unavailable Martinez, Ning Braswell MD Unavailable Unavailable Martinez, Ning Braswell MD Unavailable Unavailable Martinez, Ning Braswell MD Unavailable Unavailable Martinez, Ning Braswell MD Unavailable Unavailable Lito, Jazmyne HUMAN RELATIONS PROFESSOR HUMAN RELATIONS PROFESSOR Unavailable Unavailable [place], A Jazmyne HUMAN RELATIONS PROFESSOR Unavailable Unavailable [place], A Jazmyne HUMAN RELATIONS PROFESSOR Unavailable Unavailable [place], A Jazmyne HUMAN RELATIONS PROFESSOR Unavailable Unavailable [place], A Jazmyne HUMAN RELATIONS PROFESSOR Unavailable Unavailable [place], A Jazmyne HUMAN RELATIONS PROFESSOR Unavailable Unavailable [place], A Jazmyne HUMAN RELATIONS PROFESSOR Unavailable Unavailable [place], A Jazmyne HUMAN RELATIONS PROFESSOR Unavailable Unavailable [place], A Jazmyne HUMAN RELATIONS PROFESSOR Unavailable Unavailable [place], A Jazmyne HUMAN RELATIONS PROFESSOR Unavailable Unavailable [place], A Jazmyne HUMAN RELATIONS PROFESSOR Unavailable Unavailable [place], A Jazmyne HUMAN RELATIONS PROFESSOR Unavailable Unavailable [place], A Jazmyne HUMAN RELATIONS PROFESSOR Unavailable Unavailable [place], A Jazmyne HUMAN RELATIONS PROFESSOR Unavailable Unavailable [place], A Jazmyne HUMAN RELATIONS PROFESSOR Unavailable Unavailable [place], A Jazmyne HUMAN RELATIONS PROFESSOR Unavailable Unavailable [place], A Jazmyne HUMAN RELATIONS PROFESSOR Unavailable Unavailable [place], A Jazmyne HUMAN RELATIONS PROFESSOR Unavailable Unavailable [place], A Jazmyne HUMAN RELATIONS PROFESSOR Unavailable Unavailable [place], A Jazmyne HUMAN RELATIONS PROFESSOR Unavailable Unavailable [place], A Jazmyne HUMAN RELATIONS PROFESSOR Unavailable Unavailable [place], A Jazmyne HUMAN RELATIONS PROFESSOR Unavailable Unavailable [place], A Jazmyne HUMAN RELATIONS PROFESSOR Unavailable Unavailable [place], A Jazmyne HUMAN RELATIONS PROFESSOR Unavailable Unavailable [place], A Jazmyne HUMAN RELATIONS PROFESSOR Unavailable Unavailable [place], A Jazmyne HUMAN RELATIONS PROFESSOR Unavailable Unavailable [place], A Jazmyne HUMAN RELATIONS PROFESSOR Unavailable Unavailable [place], A Jazmyne HUMAN RELATIONS PROFESSOR Unavailable Unavailable [place], A Jazmyne HUMAN RELATIONS PROFESSOR Unavailable Unavailable [place], A Jazmyne HUMAN RELATIONS PROFESSOR Unavailable Unavailable [place], A Jazmyne HUMAN RELATIONS PROFESSOR Unavailable Unavailable [place], A Jazmyne HUMAN RELATIONS PROFESSOR Unavailable Unavailable Oracio Cook, Patsy Foster MD, FACS Unavailable Unavailable Narayanan Cook, Patsy Foster MD, FACS Unavailable Unavailable Narayanan Cook, Patsy Foster MD, FACS Unavailable Unavailable Narayanan Cook, Patsy Foster MD, FACS Unavailable Unavailable Narayanan Cook, Patsy Foster MD, FACS Unavailable Unavailable Narayanan Cook, Patsy Foster MD, FACS Unavailable Unavailable Narayanan Cook, Patsy Foster MD, FACS Unavailable Unavailable Narayanan Cook, Patsy Foster MD, FACS Unavailable Unavailable Narayanan Cook, Patsy Foster MD, FACS Unavailable Unavailable Narayanan Cook, Patsy Foster MD, FACS Unavailable Unavailable Narayanan Cook, Patsy Foster MD, FACS Unavailable Unavailable Narayanan Cook, Patsy Foster MD, FACS Unavailable Unavailable Narayanan Cook, Patsy Foster MD, FACS Unavailable Unavailable Narayanan Cook, Patsy Foster MD, FACS Unavailable Unavailable Narayanan Cook, Patsy Foster MD, FACS Unavailable Unavailable Narayanan Cook, Patsy Foster MD, FACS Unavailable Unavailable Narayanan Cook, Patsy Foster MD, FACS Unavailable Unavailable Narayanan Cook, Patsy Foster MD, FACS Unavailable Unavailable Narayanan Cook, Patsy Foster MD, FACS Unavailable Unavailable Narayanan Cook, Patsy Foster MD, FACS Unavailable Unavailable Narayanan Cook, Patsy Foster MD, FACS Unavailable Unavailable Narayanan Cook, Patsy Foster MD, FACS Unavailable Unavailable Narayanan Cook, Patsy Foster MD, FACS Unavailable Unavailable Narayanan Cook, Patsy Foster MD, FACS Unavailable Unavailable Naaryanan Cook, Patsy Foster MD, FACS Unavailable Unavailable Narayanan Cook, Patsy Foster MD, FACS Unavailable Unavailable Narayanan Cook, Patsy Foster MD, FACS Unavailable Unavailable Narayanan Cook, Patsy Foster MD, FACS Unavailable Unavailable Narayanan Cook, Patsy Foster MD, FACS Unavailable Unavailable Narayanan Cook, Patsy Foster MD, FACS Unavailable Unavailable Narayanan Cook, Patsy Foster MD, FACS Unavailable Unavailable Narayanan Cook, Patsy Foster MD, FACS Unavailable Unavailable Narayanan Cook, Patsy Foster MD, FACS Unavailable Unavailable Narayanan Cook, Patsy Foster MD, FACS Unavailable Unavailable Narayanan Cook, Patsy Foster MD, FACS Unavailable Unavailable Narayanan Cook, Patsy Foster MD, FACS Unavailable Unavailable Narayanan Cook, Patsy Foster MD, FACS Unavailable Unavailable Narayanan Cook, Patsy Foster MD, FACS Unavailable Unavailable Narayanan Cook, Patsy Foster MD, FACS Unavailable Unavailable Lito, A Jazmyne HUMAN RELATIONS PROFESSOR Unavailable Unavailable Lito, A Jazmyne HUMAN RELATIONS PROFESSOR Unavailable Unavailable Lito, A Jazmyne HUMAN RELATIONS PROFESSOR Unavailable Unavailable Lito, A Jazmyne HUMAN RELATIONS PROFESSOR Unavailable Unavailable Lito, A Jazmyne HUMAN RELATIONS PROFESSOR Unavailable Unavailable Lito, A Jazmyne HUMAN RELATIONS PROFESSOR Unavailable Unavailable Lito, A Jazmyne HUMAN RELATIONS PROFESSOR Unavailable Unavailable Lito, A Jazmyne HUMAN RELATIONS PROFESSOR Unavailable Unavailable Lito, A Jazmyne HUMAN RELATIONS PROFESSOR Unavailable Unavailable Lito, A Jazmyne HUMAN RELATIONS PROFESSOR Unavailable Unavailable Lito, A Jazmyne HUMAN RELATIONS PROFESSOR Unavailable Unavailable Lito, A Jazmyne HUMAN RELATIONS PROFESSOR Unavailable Unavailable Lito, A Jazmyne HUMAN RELATIONS PROFESSOR Unavailable Unavailable Lito, A Jazmyne HUMAN RELATIONS PROFESSOR Unavailable Unavailable Lito, A Jazmyne HUMAN RELATIONS PROFESSOR Unavailable Unavailable Lito, A Jazmyne HUMAN RELATIONS PROFESSOR Unavailable Unavailable Lito, A Jazmyne HUMAN RELATIONS PROFESSOR Unavailable Unavailable Lito, A Jazmyne HUMAN RELATIONS PROFESSOR Unavailable Unavailable Lito, A Jazmyne HUMAN RELATIONS PROFESSOR Unavailable Unavailable Lito, A Jazmyne HUMAN RELATIONS PROFESSOR Unavailable Unavailable Lito, A Jazmyne HUMAN RELATIONS PROFESSOR Unavailable Unavailable Lito, A Jazmyne HUMAN RELATIONS PROFESSOR Unavailable Unavailable Lito, A Jazmyne HUMAN RELATIONS PROFESSOR Unavailable Unavailable Lito, A Jazmyne HUMAN RELATIONS PROFESSOR Unavailable Unavailable Lito, A Jazmyne HUMAN RELATIONS PROFESSOR Unavailable Unavailable Lito, A Jazmyne HUMAN RELATIONS PROFESSOR Unavailable Unavailable Lito, A Jazmyne HUMAN RELATIONS PROFESSOR Unavailable Unavailable Lito, A Jazmyne HUMAN RELATIONS PROFESSOR Unavailable Unavailable Lito, A Jazmyne HUMAN RELATIONS PROFESSOR Unavailable Unavailable Lito, A Jazmyne HUMAN RELATIONS PROFESSOR Unavailable Unavailable Lito, A Jazmyne HUMAN RELATIONS PROFESSOR Unavailable Unavailable Re-disclosure Warning The records that [...] is protected by Article 27-F of the [facility] Public Health law. If you continue you may have access to information: Regarding HIV / AIDS; Provided by facilities licensed or operated by the [facility] Office of Mental Health; or Provided by the [facility] Office for People With Developmental Disabilities. If such information is present, then the following [facility] mandated warning applies: This information has [...] law may result in a fine or long term sentence or both. A general authorization for the release of medical or other information is NOT sufficient authorization for further disc losure. Allergies and Adverse Reactions Type Description Substance Reaction Status Data Source(s ) Allergy to substance No Known Allergies No known allergies (situation ) AARTI (Cristian Cook MD [facility]) Allergy to substance Allergy to substance Allergy to substance YUNG ([facility]) Family History Family Member Name Family Member Gender Family Member Status Date o f Status Description Data Source(s) Unknown Male Problem MEDENT ([facility] ) Encounters Encounter Providers Location Date Indications Data Source(s ) [place] [address] [address] 09/17/2021 12:00:00 AM EDT eCW1 ([facility]) [place] [address] [address] 09/10/2021 12:00:00 AM EDT eCW1 ([facility]) [place] [address] [address] 08/30/2021 12:00:00 AM EDT eCW1 ([facility]) [place] [address] [address] 08/27/2021 12:00:00 AM EDT eCW1 ([facility]) Unknown [address] [address] 08/25/2021 12:00:00 AM EDT eCW1 ([facility]) [place] [address] [address] 08/24/2021 12:00:00 AM EDT eCW1 ([facility]) [place] [address] [address] 08/20/2021 12:00:00 AM EDT eCW1 ([facility]) ([id number]) For Template [facility] [place] [address] 08/13/2021 12:00:00 AM EDT eCW1 ([facility]) ([id number]) For Template [facility] [place] [address] 07/30/2021 12:00:00 AM EDT eCW1 ([facility]) ([id number]) For Template [facility] [place] [address] 07/23/2021 12:00:00 AM EDT eCW1 ([facility]) ([id number]) For Template [facility] [place] [address] 07/16/2021 12:00:00 AM EDT eCW1 ([facility]) ([id number]) For Template [facility] [place] [address] 07/08/2021 12:00:00 AM EDT eCW1 ([facility]) ([id number]) For Template [facility] [place] [address] 07/01/2021 12:00:00 AM EDT eCW1 ([facility]) MARYLU Padilla-BC: [address] [place] [address], Ph. Attender: Jazmyne VALERO [place] [facility] Medical 06/30/2021 12:00:00 AM EDT YUNG ([facility]) ([id number]) For Template Landon [address] [place] [phone] 2021 12:00:00 AM EDT eCW1 ([facility]) ([id number]) For Template [facility] [place] [address] 06/18/2021 12:00:00 AM EDT eCW1 ([facility]) ([id number]) For Template L[place] [address] [place] [address] 06/11/2021 12:00:00 AM EDT eCW1 ([facility]) Unknown [address] [facility] [place] [address] 06/07/2021 12:00:00 AM EDT eCW1 ([facility]) ([id number]) For Template [facility] [place] [address] 05/28/2021 12:00:00 AM EDT eCW1 ([facility]) ([id number]) For Template [facility] [place] [address] 05/25/2021 12:00:00 AM EDT eCW1 ([facility]) Unknown [address] [address] 05/24/2021 12:00:00 AM EDT eCW1 ([facility]) [place] [address] [address] 05/21/2021 12:00:00 AM EDT eCW1 ([facility]) [place] [address] [place] [address] 05/14/2021 12:00:00 AM EDT eCW1 ([facility]) [place] [address] [address] 05/04/2021 12:00:00 AM EDT eCW1 ([facility]) [place]patient [address] [address] 05/03/2021 12:00:00 AM EDT eCW1 ([facility]) ([id number]) For Template [address] [place] [address] 04/30/2021 12:00:00 AM EDT eCW1 ([facility]) [place] [address] [address] 04/30/2021 12:00:00 AM EDT eCW1 ([facility]) Unknown [address] [address] 04/29/2021 12:00:00 AM EDT eCW1 ([facility]) [place] [address] [address] 04/29/2021 12:00:00 AM EDT eCW1 ([facility]) [place]patient [address] [address] 04/28/2021 12:00:00 AM EDT eCW1 ([facility]) Unknown [address] [address] 04/28/2021 12:00:00 AM EDT eCW1 ([facility]) [place] [address] [facility] [place] [address] 04/27/2021 12:00:00 AM EDT eCW1 ([facility]) [place] [address] [place] [address] 04/26/2021 12:00:00 AM EDT eCW1 ([facility]) ([id number]) For Template [address] [place] [address] 04/23/2021 12:00:00 AM EDT eCW1 ([facility]) [place] [address] [address] 04/23/2021 12:00:00 AM EDT eCW1 ([facility]) [place] [address] [address] 04/22/2021 12:00:00 AM EDT eCW1 ([facility]) [place] [address] [address] 04/21/2021 12:00:00 AM EDT eCW1 ([facility]) [place] [address] [address] 04/20/2021 12:00:00 AM EDT eCW1 ([facility]) [place] [address] [address] 04/19/2021 12:00:00 AM EDT eCW1 ([facility]) [place]patient [address] [address] 04/16/2021 12:00:00 AM EDT eCW1 ([facility]) ([id number]) For Template [place] [place] [address] 04/16/2021 12:00:00 AM EDT eCW1 ([facility]) [place]patient [address] [place] [address] 04/15/2021 12:00:00 AM EDT eCW1 ([facility]) [place] [address] [place] [address] 04/14/2021 12:00:00 AM EDT eCW1 ([facility]) [place]patient [address] [address] 04/13/2021 12:00:00 AM EDT eCW1 ([facility]) ([id number]) For Template [place] [address] [place] [address] 04/09/2021 12:00:00 AM EDT eCW1 ([facility]) [place] [address] [place] [address] 04/09/2021 12:00:00 AM EDT eCW1 ([facility]) [place]patient [address] [place] [address] 04/08/2021 12:00:00 AM EDT eCW1 ([facility]) [place] [address] [place] [address] 04/07/2021 12:00:00 AM EDT eCW1 ([facility]) [place] [address] [address] 04/06/2021 12:00:00 AM EDT eCW1 ([facility]) [place]patient [address] [address] 04/05/2021 12:00:00 AM EDT eCW1 ([facility]) ([id number]) For Template [place] [address] [place] [address] 04/02/2021 12:00:00 AM EDT eCW1 ([facility]) [place] [address] [address] 04/02/2021 12:00:00 AM EDT eCW1 ([facility]) Unknown [address] [place] [address] 04/01/2021 12:00:00 AM EDT eCW1 ([facility]) [place] [address] [address] 04/01/2021 12:00:00 AM EDT eCW1 ([facility]) [place] [address] [address] 03/31/2021 12:00:00 AM EDT eCW1 ([facility]) Unknown [address] [address] 03/31/2021 12:00:00 AM EDT eCW1 ([facility]) Unknown [address] [address] 03/30/2021 12:00:00 AM EDT eCW1 ([facility]) [place] [address] [address] 03/29/2021 12:00:00 AM EDT eCW1 ([facility]) ([id number]) For Template [address] [place] [address] 03/26/2021 12:00:00 AM EDT eCW1 ([facility]) [place] [address] [place] [address] 03/26/2021 12:00:00 AM EDT eCW1 ([facility]) [place] [address] [address] 03/25/2021 12:00:00 AM EDT eCW1 ([facility]) [place] [address] [address] 03/24/2021 12:00:00 AM EDT eCW1 ([facility]) [place] [address] [address] 03/23/2021 12:00:00 AM EDT eCW1 ([facility]) ([id number]) For Template [place] [place] [address] 03/19/2021 12:00:00 AM EDT eCW1 ([facility]) [place] [address] [place] [address] 03/19/2021 12:00:00 AM EDT eCW1 ([facility]) Outpatient [address], [facility] [address] 03/18/2021 12:00:00 AM EDT eCW1 ([facility]) [place]patient [address] [address] 03/17/2021 12:00:00 AM EDT eCW1 ([facility]) Outpatient [address] [address] 03/16/2021 12:00:00 AM EDT eCW1 ([facility]) ([id number]) For Template [place] [place] [address] 03/12/2021 12:00:00 AM EDT eCW1 ([facility]) <td ID="encounterTypeDescriptionID0">TRI AGE NON URGENT</td><td>Cristian Cook MD, FACS</td><td>Cristian Zapien MD [facility]</td><td>03/11/2021</td><td>8:51AM</td><td>9:51AM</td><td><content ID="encounterDiagnosisID0-0">Posterior Vitreous Detachment Right Eye</content></td>Outpatient Attender: Cristian Cook MD, FACS Cristian Cook MD [facility] 03/11/2021 08:51:00 AM EDT - 03/11/2021 09:51:00 AM ED T Posterior Vitreous Detachment Right Eye AARTI (Cristian Cook MD [facility]) Posterior Vitreous Detachment Right Eye French Martinez MD: [address] [place] [phone], Ph. Attender: French Martinez MD [facility] Medical 03/11/2021 12:00:00 AM EDT YUNG ([facility]) French Martinez MD: [address] [place] [phone], Ph. Attender: French Martinez MD [place] - [facility] Medical 03/11/2021 12:00:00 AM EDT YUNG ([facility]) Unknown [address] [facility] [address] 03/11/2021 12:00:00 AM EDT eCW1 ([facility]) Outpatient [address] [facility] [address] 03/09/2021 12:00:00 AM EDT eCW1 ([facility]) Outpatient [address] [facility] [address] 03/08/2021 12:00:00 AM EDT eCW1 ([facility]) ([id number]) For Template [place] [address] [place] [address] 03/05/2021 12:00:00 AM EDT eCW1 ([facility] [place]) Outpatient [address] [facility] [address] 03/05/2021 12:00:00 AM EDT eCW1 ([facility]) Outpatient [address] [facility] [address] 03/04/2021 12:00:00 AM EDT eCW1 ([facility]) Outpatient [address] [facility] [address] 03/03/2021 12:00:00 AM EDT eCW1 ([facility]) Outpatient [address] [facility] [address] 03/02/2021 12:00:00 AM EDT eCW1 ([facility]) Outpatient [address] [facility] [address] 03/01/2021 12:00:00 AM EDT eCW1 ([facility]) Outpatient [address] [facility] [address] 02/26/2021 12:00:00 AM EDT eCW1 ([facility]) Unknown [address] [facility] [address] 02/25/2021 12:00:00 AM EDT eCW1 ([facility]) Unknown [address] [facility] [place] [address] 02/23/2021 12:00:00 AM EDT eCW1 ([facility]) Unknown [address] [facility] [place] [address] 02/23/2021 12:00:00 AM EDT eCW1 ([facility]) ([id number]) For Template [place] [address] [place] [address] 02/19/2021 12:00:00 AM EDT eCW1 ([facility]) ([id number]) For Template [place] [address] [place] [address] 02/12/2021 12:00:00 AM EDT eCW1 ([facility]) Outpatient [address] [facility] [place] [address] 02/11/2021 12:00:00 AM EDT eCW1 ([facility] [facility] Unknown [address] [facility] [place] [address] 02/08/2021 12:00:00 AM EDT eCW1 ([facility] Outpatient [address] [facility] [id number] 02/05/2021 12:00:00 AM EDT eCW1 ([facility]) ([id number]) For Template [place]andon [address] [place] [address] 01/29/2021 12:00:00 AM EDT eCW1 ([facility]) NIKHIL PadillaBC: [address], [place] [address], Ph. Attender: Jazmyne VALERO [facility] Medical 01/22/2021 12:00:00 AM EST YUNG ([facility]) MARYLU Padilla-BC: [address], [place] [address], Ph. Attender: Jazmyne Morse [facility] Medical 01/22/2021 12:00:00 AM EST YUNG ([facility]) Jazmyne Morse [facility]: [address] [place] [address], Ph. Attender: Jazmyne Morse [facility] Medical 01/22/2021 12:00:00 AM EST YUN[place] ([facility]) [place]patient [address] [address] 01/21/2021 12:00:00 AM EST eCW1 ([facility]) [place] [address] [facility] [place] [address] 01/20/2021 12:00:00 AM EST eCW1 ([facility]) Outpatient [address] [address] 01/19/2021 12:00:00 AM EST eCW1 ([facility]) Unknown [address] [address] 01/19/2021 12:00:00 AM EST eCW1 ([facility]) Unknown [address] [facility] [place] [address] 01/14/2021 12:00:00 AM EST eCW1 ([facility]) Unknown [address] [address] 01/07/2021 12:00:00 AM EST eCW1 ([facility]) Outpatient [address] [facility] [place] [address] 01/01/2021 12:00:00 AM EST eCW1 ([facility]) Outpatient [address] [facility] [place] [address] 12/25/2020 12:00:00 AM EST eCW1 ([facility]) (WND STRTCH) Stretcher Required Patients [address] [place] [address] 12/15/2020 12:00:00 AM EST eCW1 ([facility]) Unknown [address] [address] 12/14/2020 12:00:00 AM EST eCW1 ([facility]) (WND STRTCH) Stretcher Required Patients [address] [place] [address] 12/04/2020 12:00:00 AM EST eCW1 ([facility]) ([id number]) For Template [place] [address] [place] [address] 11/27/2020 12:00:00 AM EST eCW1 ([facility]) ([id number]) For Template [place] [address] [place] [address] 11/20/2020 12:00:00 AM EST eCW1 ([facility]) Unknown [address] [address] 11/18/2020 12:00:00 AM EST eCW1 ([facility]) Unknown [address] [address] 11/16/2020 12:00:00 AM EST eCW1 ([facility]) Outpatient [address] [facility] [place] [address] 10/30/2020 12:00:00 AM EST eCW1 ([facility]) ([id number]) For Template [place] [address] [place] [address] 10/23/2020 12:00:00 AM EST eCW1 ([facility]) ([id number]) For Template [place] [address] [place] [address] 10/16/2020 12:00:00 AM EST eCW1 ([facility]) Unknown [address] [facility] [place] [address] 10/16/2020 12:00:00 AM EST eCW1 ([facility]) [place] [address] [address] 10/02/2020 12:00:00 AM EST [facility]CW1 [facility] Unknown [address] [address] 10/02/2020 12:00:00 AM EST eCW1 [facility]) Outpatient [address] [facility] [place] [address] 09/25/2020 12:00:00 AM EST eCW1 [facility]) ([id number]) For Template [place] [address] [place] [address] 09/18/2020 12:00:00 AM EST eCW1 ([facility]) ([id number]) For Template [place] [address] [place] [address] 09/11/2020 12:00:00 AM EDT eCW1 ([facility]) Unknown [address] [address] 09/10/2020 12:00:00 AM EDT eCW1 ([facility]) Outpatient Attender: MARYLU VALERO 09/07/2020 11:30:02 A M EDT [facility] NIKHIL PadillaBC: [address], [place] [address], Ph. Attender: Jazmyne Morse [facility] Medical 09/07/2020 12:00:00 AM EDT YUNG ([facility]) NIKHIL PadillaBC: [address], [place] [address], Ph. [facility]: [facility] 09/07/2020 12:00:00 AM EDT [place] ([facility]) NIKHIL PadillaBC: [address], [place] [address], Ph. Attender: Jazmyne VALERO [facility] Medical 09/07/2020 12:00:00 AM EDT YUNG ([facility]) Unknown [address] [facility] [address] 09/07/2020 12:00:00 AM EDT eCW1 ([facility]) MARYLU Padilla-BC: [address] [place] [address], Ph. Attender: Jazmyne VALERO [facility] Medical 09/07/2020 12:00:00 AM EDT YUNG ([facility]) ([id number]) For Template Landon [facility] [place] [address] 09/04/2020 12:00:00 AM EDT eCW1 ([facility]) Outpatient Attender: MARYLU VALERO 08/31/2020 09:14:02 P M EDT [facility] Outpatient Attender: Jazmyne VALERO 08/31/2020 09:1 4:02 PM EDT [facility] Outpatient Attender: MARYLU TORREZ 08/31/2020 09:13:00 P M EDT [facility] Outpatient Attender: Jamzyne VALERO 08/31/2020 09:1 3:00 PM EDT [facility] Outpatient Attender: Jazmyne VALERO 08/31/2020 08:1 7:02 PM EDT [facility] Outpatient Attender: MARYLU VALERO 08/31/2020 09:29:01 A M EDT [facility] ([id number]) For Template [place] [address] [place] [address] 08/28/2020 12:00:00 AM EDT eCW1 ([facility]) ([id number]) For Template [place] [address] [place] [address] 08/21/2020 12:00:00 AM EDT eCW1 ([facility]) Outpatient Attender: MARYLU VALREO FP 08/20/2020 10:31:01 A M EDT [facility] Outpatient [address] [address] 08/14/2020 12:00:00 AM EDT eCW1 ([facility]) Unknown [address] [address] 08/14/2020 12:00:00 AM EDT eCW1 ([facility]) Outpatient Attender: MARYLU VALERO FP 08/12/2020 06:10:02 A M EDT [facility] Outpatient Attender: Jazmyne VALERO FP 08/12/2020 06:1 0:01 AM EDT [facility] Unknown [address] [place] [address] 08/12/2020 12:00:00 AM EDT eCW1 ([facility]) Outpatient Attender: MARYLU VALERO FP 08/07/2020 12:02:12 A M EDT [facility] Outpatient Attender: Jazmyne VALERO FP 08/06/2020 04:4 6:01 PM EDT [facility] Outpatient Attender: MARYLU VALERO FP 08/06/2020 04:46:00 P M EDT [facility] Outpatient Attender: MARYLU VALERO FP 08/06/2020 02:42:00 P M EDT [facility] Outpatient Attender: MARYLU TORREZ 08/06/2020 02:40:00 P M EDT [facility] Attender: MARYLU VALERO FP 08/06/2020 02:39:00 P M EDT [facility] Outpatient Attender: MARYLU VALERO FP 08/05/2020 12:02:16 A M EDT [facility]patient Attender: MARYLU VALERO FP 08/04/2020 11:35:01 A M EDT [facility] Outpatient Attender: MARYLU VALERO FP 08/01/2020 12:02:05 A M EDT [facility] Outpatient Attender: Jazmyne TORREZ 07/31/2020 11:2 6:01 AM EDT [facility] Outpatient Attender: MARYLU DYERP FP 07/31/2020 09:54:00 A M EDT [facility] Outpatient Attender: MARYLU Morse [employer] FP 07/31/2020 09:50:01 A M EDT [facility] Immunizations Vaccine Date Status Description Data Source(s) pneumococcal polysaccharide PPV23 08/24/2021 10:31:00 AM EDT comple kervin eCW1 ([facility]) pneumococcal polysaccharide PPV23 08/24/2021 10:31:00 AM EDT comple kervin eCW1 ([facility]) pneumococcal polysaccharide PPV23 08/24/2021 10:31:00 AM EDT comple kervin eCW1 ([facility]) pneumococcal polysaccharide PPV23 08/24/2021 10:31:00 AM EDT comple kervin eCW1 ([facility]) pneumococcal polysaccharide PPV23 08/24/2021 10:31:00 AM EDT comple kervin eCW1 ([facility]) pneumococcal polysaccharide PPV23 08/24/2021 10:31:00 AM EDT comple kervin eCW1 ([facility]) pneumococcal polysaccharide PPV23 08/24/2021 10:31:00 AM EDT comple kervin eCW1 ([facility]) influenza, recombinant, quadrIvalent,injectable, prese rvative free 08/24/2021 10:30:00 AM EDT completed eCW1 ([facility]) influenza, recombinant, quadrIvalent,injectable, prese rvative free 08/24/2021 10:30:00 AM EDT completed eCW1 ([facility]) influenza, recombinant, quadrIvalent,injectable, prese rvative free 08/24/2021 10:30:00 AM EDT completed eCW1 ([facility]) influenza, recombinant, quadrIvalent,injectable, prese rvative free 08/24/2021 10:30:00 AM EDT completed eCW1 ([facility]) influenza, recombinant, quadrIvalent,injectable, prese rvative free 08/24/2021 10:30:00 AM EDT completed eCW1 ([facility]) influenza, recombinant, quadrIvalent,injectable, prese rvative free 08/24/2021 10:30:00 AM EDT completed eCW1 ([facility]) influenza, recombinant, quadrIvalent,injectable, prese rvative free 08/24/2021 10:30:00 AM EDT completed eCW1 ([facility]) COVID-19 vaccine, vector-nr, rS-Ad26, PF, 0.5 mL 03/11/2021 02:19:29 PM EDT completed 10.5 mL YUNG ([facility]) COVID-19 vaccine, vector-nr, rS-Ad26, PF, 0.5 mL 03/11/2021 02:19:29 PM EDT completed 10.5 mL YUNG ([facility]) JJ/Tino COVID-19 (given elsewhere) SA RS-COV-2 vaccine, vector non- replicating, recombinant spike protein-Ad26, preservative free, 0.5 mL 03/11/2021 09:23:00 AM EDT completed eCW1 ([facility]) JJ/Tino COVID-19 (given elsewhere) SA RS-COV-2 vaccine, vector non- replicating, recombinant spike protein-Ad26, preservative free, 0.5 mL 03/11/2021 09:23:00 AM EDT completed eCW1 ([facility]) JJ/Tino COVID-19 (given elsewhere) SA RS-COV-2 vaccine, vector non- replicating, recombinant spike protein-Ad26, preservative free, 0.5 mL 03/11/2021 09:23:00 AM EDT completed eCW1 ([facility]) JJ/Tino COVID-19 (given elsewhere) SA RS-COV-2 vaccine, vector non- replicating, recombinant spike protein-Ad26, preservative free, 0.5 mL 03/11/2021 09:23:00 AM EDT completed eCW1 ([facility]) JJ/Tino COVID-19 (given elsewhere) SA RS-COV-2 vaccine, vector non- replicating, recombinant spike protein-Ad26, preservative free, 0.5 mL 03/11/2021 09:23:00 AM EDT completed eCW1 ([facility]) JJ/Tino COVID-19 (given elsewhere) SA RS-COV-2 vaccine, vector non- replicating, recombinant spike protein-Ad26, preservative free, 0.5 mL 03/11/2021 09:23:00 AM EDT completed eCW1 ([facility]) JJ/Tino COVID-19 (given elsewhere) SA RS-COV-2 vaccine, vector non- replicating, recombinant spike protein-Ad26, preservative free, 0.5 mL 03/11/2021 09:23:00 AM EDT completed eCW1 ([facility]) COVID-19 VACCINE Tino 03/11/2021 12:00:00 AM EDT completed [employer] Vaccine Series Complete: YESThis Data wa s Submitted to [facility] Via [employer]. influenza, recombinant, quadrIvalent,injectable, prese rvative free 08/21/2020 01:11:00 PM EDT completed eCW1 ([facility]) influenza, recombinant, quadrIvalent,injectable, prese rvative free 08/21/2020 01:11:00 PM EDT completed eCW1 ([facility]) influenza, recombinant, quadrIvalent,injectable, prese rvative free 08/21/2020 01:11:00 PM EDT completed eCW1 ([facility]) influenza, recombinant, quadrIvalent,injectable, prese rvative free 08/21/2020 01:11:00 PM EDT completed eCW1 ([facility]) influenza, recombinant, quadrIvalent,injectable, prese rvative free 08/21/2020 01:11:00 PM EDT completed eCW1 ([facility]) influenza, recombinant, quadrIvalent,injectable, prese rvative free 08/21/2020 01:11:00 PM EDT completed eCW1 ([facility]) influenza, recombinant, quadrIvalent,injectable, prese rvative free 08/21/2020 01:11:00 PM EDT completed eCW1 ([facility]) influenza, recombinant, quadrIvalent,injectable, prese rvative free 08/21/2020 01:11:00 PM EDT completed eCW1 ([facility]) influenza, recombinant, quadrIvalent,injectable, prese rvative free 08/21/2020 01:11:00 PM EDT completed eCW1 ([facility]) influenza, recombinant, quadrIvalent,injectable, prese rvative free 08/21/2020 01:11:00 PM EDT completed eCW1 ([facility]) influenza, recombinant, quadrIvalent,injectable, prese rvative free 08/21/2020 01:11:00 PM EDT completed eCW1 ([facility]) influenza, recombinant, quadrIvalent,injectable, prese rvative free 08/21/2020 01:11:00 PM EDT completed eCW1 ([facility]) influenza, recombinant, quadrIvalent,injectable, prese rvative free 08/21/2020 01:11:00 PM EDT completed eCW1 ([facility]) influenza, recombinant, quadrIvalent,injectable, prese rvative free 08/21/2020 01:11:00 PM EDT completed eCW1 ([facility]) influenza, recombinant, quadrIvalent,injectable, prese rvative free 08/21/2020 01:11:00 PM EDT completed eCW1 ([facility]) influenza, recombinant, quadrIvalent,injectable, prese rvative free 08/21/2020 01:11:00 PM EDT completed eCW1 ([facility]) influenza, recombinant, quadrIvalent,injectable, prese rvative free 08/21/2020 01:11:00 PM EDT completed eCW1 ([facility]) influenza, recombinant, quadrIvalent,injectable, prese rvative free 08/21/2020 01:11:00 PM EDT completed eCW1 ([facility]) influenza, recombinant, quadrIvalent,injectable, prese rvative free 08/21/2020 01:11:00 PM EDT completed eCW1 ([facility]) influenza, recombinant, quadrIvalent,injectable, prese rvative free 08/21/2020 01:11:00 PM EDT completed eCW1 ([facility]) influenza, recombinant, quadrIvalent,injectable, prese rvative free 08/21/2020 01:11:00 PM EDT completed eCW1 ([facility]) influenza, recombinant, quadrIvalent,injectable, prese rvative free 08/21/2020 01:11:00 PM EDT completed eCW1 ([facility]) influenza, recombinant, quadrIvalent,injectable, prese rvative free 08/21/2020 01:11:00 PM EDT completed eCW1 ([facility]) influenza, recombinant, quadrIvalent,injectable, prese rvative free 08/21/2020 01:11:00 PM EDT completed eCW1 ([facility]) influenza, recombinant, quadrIvalent,injectable, prese rvative free 08/21/2020 01:11:00 PM EDT completed eCW1 ([facility]) influenza, recombinant, quadrIvalent,injectable, prese rvative free 08/21/2020 01:11:00 PM EDT completed eCW1 ([facility]) influenza, recombinant, quadrIvalent,injectable, prese rvative free 08/21/2020 01:11:00 PM EDT completed eCW1 ([facility]) influenza, recombinant, quadrIvalent,injectable, prese rvative free 08/21/2020 01:11:00 PM EDT completed eCW1 ([facility]) influenza, recombinant, quadrIvalent,injectable, prese rvative free 08/21/2020 01:11:00 PM EDT completed eCW1 ([facility]) influenza, recombinant, quadrIvalent,injectable, prese rvative free 08/21/2020 01:11:00 PM EDT completed eCW1 ([facility]) influenza, recombinant, quadrIvalent,injectable, prese rvative free 08/21/2020 01:11:00 PM EDT completed eCW1 ([facility]) influenza, recombinant, quadrIvalent,injectable, prese rvative free 08/21/2020 01:11:00 PM EDT completed eCW1 ([facility]) influenza, recombinant, quadrIvalent,injectable, prese rvative free 08/21/2020 01:11:00 PM EDT completed eCW1 ([facility]) influenza, recombinant, quadrIvalent,injectable, prese rvative free 08/21/2020 01:11:00 PM EDT completed eCW1 ([facility]) influenza, recombinant, quadrIvalent,injectable, prese rvative free 08/21/2020 01:11:00 PM EDT completed eCW1 ([facility]) influenza, recombinant, quadrIvalent,injectable, prese rvative free 08/21/2020 01:11:00 PM EDT completed eCW1 ([facility]) influenza, recombinant, quadrIvalent,injectable, prese rvative free 08/21/2020 01:11:00 PM EDT completed eCW1 ([facility]) influenza, recombinant, quadrIvalent,injectable, prese rvative free 08/21/2020 01:11:00 PM EDT completed eCW1 ([facility]) influenza, recombinant, quadrIvalent,injectable, prese rvative free 08/21/2020 01:11:00 PM EDT completed eCW1 ([facility]) influenza, recombinant, quadrIvalent,injectable, prese rvative free 08/21/2020 01:11:00 PM EDT completed eCW1 ([facility]) influenza, recombinant, quadrIvalent,injectable, prese rvative free 08/21/2020 01:11:00 PM EDT completed eCW1 ([facility]) influenza, recombinant, quadrIvalent,injectable, prese rvative free 08/21/2020 01:11:00 PM EDT completed eCW1 ([facility]) influenza, recombinant, quadrIvalent,injectable, prese rvative free 08/21/2020 01:11:00 PM EDT completed eCW1 ([facility]) influenza, recombinant, quadrIvalent,injectable, prese rvative free 08/21/2020 01:11:00 PM EDT completed eCW1 ([facility]) influenza, recombinant, quadrIvalent,injectable, prese rvative free 08/21/2020 01:11:00 PM EDT completed eCW1 ([facility]) influenza, recombinant, quadrIvalent,injectable, prese rvative free 08/21/2020 01:11:00 PM EDT completed eCW1 ([facility]) influenza, recombinant, quadrIvalent,injectable, prese rvative free 08/21/2020 01:11:00 PM EDT completed eCW1 ([facility]) influenza, recombinant, quadrIvalent,injectable, prese rvative free 08/21/2020 01:11:00 PM EDT completed eCW1 ([facility]) influenza, recombinant, quadrIvalent,injectable, prese rvative free 08/21/2020 01:11:00 PM EDT completed eCW1 ([facility]) influenza, recombinant, quadrIvalent,injectable, prese rvative free 08/21/2020 01:11:00 PM EDT completed eCW1 ([facility]) influenza, recombinant, quadrIvalent,injectable, prese rvative free 08/21/2020 01:11:00 PM EDT completed eCW1 ([facility]) influenza, recombinant, quadrIvalent,injectable, prese rvative free 08/21/2020 01:11:00 PM EDT completed eCW1 ([facility]) influenza, recombinant, quadrIvalent,injectable, prese rvative free 08/21/2020 01:11:00 PM EDT completed eCW1 ([facility]) influenza, recombinant, quadrIvalent,injectable, prese rvative free 08/21/2020 01:11:00 PM EDT completed eCW1 ([facility]) influenza, recombinant, quadrIvalent,injectable, prese rvative free 08/21/2020 01:11:00 PM EDT completed eCW1 ([facility]) influenza, recombinant, quadrIvalent,injectable, prese rvative free 08/21/2020 01:11:00 PM EDT completed eCW1 ([facility]) influenza, recombinant, quadrIvalent,injectable, prese rvative free 08/21/2020 01:11:00 PM EDT completed eCW1 ([facility]) influenza, recombinant, quadrIvalent,injectable, prese rvative free 08/21/2020 01:11:00 PM EDT completed eCW1 ([facility]) influenza, recombinant, quadrIvalent,injectable, prese rvative free 08/21/2020 01:11:00 PM EDT completed eCW1 ([facility]) influenza, recombinant, quadrIvalent,injectable, prese rvative free 08/21/2020 01:11:00 PM EDT completed eCW1 ([facility]) influenza, recombinant, quadrIvalent,injectable, prese rvative free 08/21/2020 01:11:00 PM EDT completed eCW1 ([facility]) influenza, recombinant, quadrIvalent,injectable, prese rvative free 08/21/2020 01:11:00 PM EDT completed eCW1 ([facility]) influenza, recombinant, quadrIvalent,injectable, prese rvative free 08/21/2020 01:11:00 PM EDT completed eCW1 ([facility]) influenza, recombinant, quadrIvalent,injectable, prese rvative free 08/21/2020 01:11:00 PM EDT completed eCW1 ([facility]) influenza, recombinant, quadrIvalent,injectable, prese rvative free 08/21/2020 01:11:00 PM EDT completed eCW1 ([facility]) influenza, recombinant, quadrIvalent,injectable, prese rvative free 08/21/2020 01:11:00 PM EDT completed eCW1 ([facility]) influenza, recombinant, quadrIvalent,injectable, prese rvative free 08/21/2020 01:11:00 PM EDT completed eCW1 ([facility]) influenza, recombinant, quadrIvalent,injectable, prese rvative free 08/21/2020 01:11:00 PM EDT completed eCW1 ([facility]) influenza, recombinant, quadrIvalent,injectable, prese rvative free 08/21/2020 01:11:00 PM EDT completed eCW1 ([facility]) influenza, recombinant, quadrIvalent,injectable, prese rvative free 08/21/2020 01:11:00 PM EDT completed eCW1 ([facility]) influenza, recombinant, quadrIvalent,injectable, prese rvative free 08/21/2020 01:11:00 PM EDT completed eCW1 ([facility]) influenza, recombinant, quadrIvalent,injectable, prese rvative free 08/21/2020 01:11:00 PM EDT completed eCW1 ([facility]) influenza, recombinant, quadrIvalent,injectable, prese rvative free 08/21/2020 01:11:00 PM EDT completed eCW1 ([facility]) influenza, recombinant, quadrIvalent,injectable, prese rvative free 08/21/2020 01:11:00 PM EDT completed eCW1 ([facility]) influenza, recombinant, quadrIvalent,injectable, prese rvative free 08/21/2020 01:11:00 PM EDT completed eCW1 ([facility]) influenza, recombinant, quadrIvalent,injectable, prese rvative free 08/21/2020 01:11:00 PM EDT completed eCW1 ([facility]) influenza, recombinant, quadrIvalent,injectable, prese rvative free 08/21/2020 01:11:00 PM EDT completed eCW1 ([facility]) influenza, recombinant, quadrIvalent,injectable, prese rvative free 08/21/2020 01:11:00 PM EDT completed eCW1 ([facility]) influenza, recombinant, quadrIvalent,injectable, prese rvative free 08/21/2020 01:11:00 PM EDT completed eCW1 ([facility]) influenza, recombinant, quadrIvalent,injectable, prese rvative free 08/21/2020 01:11:00 PM EDT completed eCW1 ([facility]) influenza, recombinant, quadrIvalent,injectable, prese rvative free 08/21/2020 01:11:00 PM EDT completed eCW1 ([facility]) influenza, recombinant, quadrIvalent,injectable, prese rvative free 08/21/2020 01:11:00 PM EDT completed eCW1 ([facility]) influenza, recombinant, quadrIvalent,injectable, prese rvative free 08/21/2020 01:11:00 PM EDT completed eCW1 ([facility]) influenza, recombinant, quadrIvalent,injectable, prese rvative free 08/21/2020 01:11:00 PM EDT completed eCW1 ([facility]) influenza, recombinant, quadrIvalent,injectable, prese rvative free 08/21/2020 01:11:00 PM EDT completed eCW1 ([facility]) influenza, recombinant, quadrIvalent,injectable, prese rvative free 08/21/2020 01:11:00 PM EDT completed eCW1 ([facility]) influenza, recombinant, quadrIvalent,injectable, prese rvative free 08/21/2020 01:11:00 PM EDT completed eCW1 ([facility]) influenza, recombinant, quadrIvalent,injectable, prese rvative free 08/21/2020 01:11:00 PM EDT completed eCW1 ([facility]) influenza, recombinant, quadrIvalent,injectable, prese rvative free 08/21/2020 01:11:00 PM EDT completed eCW1 ([facility]) influenza, recombinant, quadrIvalent,injectable, prese rvative free 08/21/2020 01:11:00 PM EDT completed eCW1 ([facility]) influenza, recombinant, quadrIvalent,injectable, prese rvative free 08/21/2020 01:11:00 PM EDT completed eCW1 ([facility]) influenza, recombinant, quadrIvalent,injectable, prese rvative free 08/21/2020 01:11:00 PM EDT completed eCW1 ([facility]) influenza, recombinant, quadrIvalent,injectable, prese rvative free 08/21/2020 01:11:00 PM EDT completed eCW1 ([facility]) influenza, recombinant, quadrIvalent,injectable, prese rvative free 08/21/2020 01:11:00 PM EDT completed eCW1 ([facility]) influenza, recombinant, quadrIvalent,injectable, prese rvative free 08/21/2020 01:11:00 PM EDT completed eCW1 ([facility]) influenza, recombinant, quadrIvalent,injectable, prese rvative free 08/21/2020 01:11:00 PM EDT completed eCW1 ([facility]) influenza, recombinant, quadrIvalent,injectable, prese rvative free 08/21/2020 01:11:00 PM EDT completed eCW1 ([facility]) influenza, recombinant, quadrIvalent,injectable, prese rvative free 08/21/2020 01:11:00 PM EDT completed eCW1 ([facility]) influenza, recombinant, quadrIvalent,injectable, prese rvative free 08/21/2020 01:11:00 PM EDT completed eCW1 ([facility]) influenza, recombinant, quadrIvalent,injectable, prese rvative free 08/21/2020 01:11:00 PM EDT completed eCW1 ([facility]) influenza, recombinant, quadrIvalent,injectable, prese rvative free 08/21/2020 01:11:00 PM EDT completed eCW1 ([facility]) influenza, recombinant, quadrIvalent,injectable, prese rvative free 08/21/2020 01:11:00 PM EDT completed eCW1 ([facility]) influenza, recombinant, quadrIvalent,injectable, prese rvative free 08/21/2020 01:11:00 PM EDT completed eCW1 ([facility]) influenza, recombinant, quadrIvalent,injectable, prese rvative free 08/21/2020 01:11:00 PM EDT completed eCW1 ([facility]) influenza, recombinant, quadrIvalent,injectable, prese rvative free 08/21/2020 01:11:00 PM EDT completed eCW1 ([facility]) influenza, recombinant, quadrIvalent,injectable, prese rvative free 08/21/2020 01:11:00 PM EDT completed eCW1 ([facility]) influenza, recombinant, quadrIvalent,injectable, prese rvative free 08/21/2020 01:11:00 PM EDT completed eCW1 ([facility]) influenza, recombinant, quadrIvalent,injectable, prese rvative free 08/21/2020 01:11:00 PM EDT completed eCW1 ([facility]) influenza, recombinant, quadrIvalent,injectable, prese rvative free 08/21/2020 01:11:00 PM EDT completed eCW1 ([facility]) influenza, recombinant, quadrIvalent,injectable, prese rvative free 08/21/2020 01:11:00 PM EDT completed eCW1 ([facility]) influenza, recombinant, quadrIvalent,injectable, prese rvative free 08/21/2020 01:11:00 PM EDT completed eCW1 ([facility]) influenza, recombinant, quadrIvalent,injectable, prese rvative free 08/21/2020 01:11:00 PM EDT completed eCW1 ([facility]) influenza, recombinant, quadrIvalent,injectable, prese rvative free 08/21/2020 01:11:00 PM EDT completed eCW1 ([facility]) influenza, recombinant, quadrIvalent,injectable, prese rvative free 08/21/2020 01:11:00 PM EDT completed eCW1 ([facility]) influenza, recombinant, quadrIvalent,injectable, prese rvative free 08/21/2020 01:11:00 PM EDT completed eCW1 ([facility]) influenza, recombinant, quadrIvalent,injectable, prese rvative free 08/21/2020 01:11:00 PM EDT completed eCW1 ([facility]) influenza, recombinant, quadrIvalent,injectable, prese rvative free 08/21/2020 01:11:00 PM EDT completed eCW1 ([facility]) influenza, recombinant, quadrIvalent,injectable, prese rvative free 08/21/2020 01:11:00 PM EDT completed eCW1 ([facility]) Influenza, injectable, MDCK, preservative free, susu valent 08/06/2020 12:00:00 AM EDT completed 08/06/20200.5 mL YUNG ([facility]) Influenza, injectable, MDCK, preservative free, susu valent 08/06/2020 12:00:00 AM EDT completed 08/06/20200.5 mL YUNG ([facility]) Influenza, injectable, MDCK, preservative free, susu valent 08/06/2020 12:00:00 AM EDT completed .5 mL YUNG ([facility]) Medications Medication Brand Name Start Date Product Form Dose Route Admi nistrative Instructions Pharmacy Instructions Status Indications Reaction Description Data Source(s) Cefadroxil 500 MG Oral Capsule Cefadroxil 500 MG 09/17/2021 12:00:0 0 AM EDT 2.0 {capsules} active Cefadroxil 500 MG eCW1 ([facility]) 500 mg 09/17/2021 12:00:00 AM EDT capsule 20 TAKE 2 CAPSULES BY MOUTH DAILY FOR 10 DAYS TAKE 2 CAPSULES BY MOUTH DAILY FOR 10 DAYS SOLD: 09/17/2021 [facility] 3 ML Insulin Glargine 100 UNT/ML Pen Injector [Lantus] 100 unit/mL (3 mL) INSULIN GLARGINE,[email or web address] 09/01/2021 12:00:00 AM EDT insulin pen 30 INJECT 45 UNITS SUBCUTANEOUSLY TWO TIMES A DAY INJECT 45 UNITS SUBCUTANEOUSLY TWO TIMES A DAY SOLD: 09/01/2021 [facility] 20 mg 08/24/2021 12:00:00 AM EDT tablet 30 TAKE ONE TABLET BY MOUTH AT BEDTIME TAKE ONE TABLET BY MOUTH AT BEDTIME SOLD: 08/25/2021 [facility] 5 mg 07/27/2021 12:00:00 AM EDT tablet 60 TAKE TWO TABLETS BY MOUTH TWICE A DAY FOR 7 DAYS THEN 1 TWICE A DAY TAKE TWO TABLETS BY MOUTH TWICE A DAY FO R 7 DAYS THEN 1 TWICE A DAY SOLD: 09/20/2021 [facility] 5 mg 07/27/2021 12:00:00 AM EDT tablet 60 TAKE TWO TABLETS BY MOUTH TWICE A DAY FOR 7 DAYS THEN 1 TWICE A DAY TAKE TWO TABLETS BY MOUTH TWICE A DAY FO R 7 DAYS THEN 1 TWICE A DAY SOLD: 08/20/2021 [facility] 5 mg 07/27/2021 12:00:00 AM EDT tablet 36 TAKE TWO TABLETS BY MOUTH TWICE A DAY FOR 7 DAYS THEN 1 TWICE A DAY TAKE TWO TABLETS BY MOUTH TWICE A DAY FO R 7 DAYS THEN 1 TWICE A DAY SOLD: 08/03/2021 [facility] 0.25 mg 07/07/2021 12:00:00 AM EDT tablet 30 TAKE ONE TABLET BY MOUTH AT BEDTIME TAKE ONE TABLET BY MOUTH AT BEDTIME SOLD: 08/04/2021 [facility] BLOOD SUGAR DIAGNOSTIC 07/07/2021 12:00:00 AM EDT strip 100 DIRECTED TWO TIMES A DAY AND NEEDED DIRECTED TWO TIMES A DAY AND NEEDED SOLD: 07/07/2021 [facility] 0.25 mg 07/07/2021 12:00:00 AM EDT tablet 30 TAKE ONE TABLET BY MOUTH AT BEDTIME TAKE ONE TABLET BY MOUTH AT BEDTIME SOLD: 07/07/2021 [facility] 0.25 mg 07/07/2021 12:00:00 AM EDT tablet 30 TAKE ONE TABLET BY MOUTH AT BEDTIME TAKE ONE TABLET BY MOUTH AT BEDTIME SOLD: 09/05/2021 [facility] 31 gauge x 1/4" 06/29/2021 12:00:00 AM EDT needle 100 THREE TIMES A DAY THREE TIMES A DAY SOLD: 06/30/2021 [facility] 5 mg 2021 12:00:00 AM EDT tablet 60 TAKE TWO TABLETS BY MOUTH TWO TIMES A DAY FOR 7 DAYS THEN TAKE ONE TABLET BY MOUTH TWO TIMES A DAY TAKE TWO TABLETS BY MOUTH TWO TIMES A DAY FOR 7 DAYS THEN TAKE ONE TABLET BY MOUTH TWO TIMES A DAY SOLD: 2021 [facility] 500 mg 05/25/2021 12:00:00 AM EDT capsule 20 TAKE TWO CAPSULES BY MOUTH EVERY DAY TAKE TWO CAPSULES BY MOUTH EVERY DAY SOLD: 05/25/2021 [facility] Duricef 500 mg UNK 05/25/2021 12:00:00 AM EDT 2.0 {tablets} active Duricef 500 mg eCW1 ([facility]) 0.25 mg 03/16/2021 12:00:00 AM EDT tablet 30 TAKE ONE TABLET BY MOUTH AT BEDTIME TAKE ONE TABLET BY MOUTH AT BEDTIME SOLD: 05/31/2021 [facility] 0.25 mg 03/16/2021 12:00:00 AM EDT tablet 30 TAKE ONE TABLET BY MOUTH AT BEDTIME TAKE ONE TABLET BY MOUTH AT BEDTIME SOLD: 04/23/2021 [facility] 0.25 mg 03/16/2021 12:00:00 AM EDT tablet 30 TAKE ONE TABLET BY MOUTH AT BEDTIME TAKE ONE TABLET BY MOUTH AT BEDTIME SOLD: 03/16/2021 [facility] Aspirin 81 MG Delayed Release Oral Table t [Aspir-Low] Aspir-Low 81 MG Oral Tablet Delayed Release Aspir-Low 81 MG Oral Tablet Delayed Release 03/11/2021 12:00:00 AM EDT 1 active aspirin 81 MG Delayed Release Oral Tablet [Aspir-Low] AARTI (Cristian Cook MD [facility]) Docusate Sodium 100 MG Oral Capsule [Dul colax Stool Softener] Dulcolax Stool Softener 100 MG Oral Capsule Dulcolax Stool Softener 100 MG Oral Capsule 03/11/2021 12:00:00 AM EDT 1 active docusate sodium 100 MG Oral Capsule [Dulcolax Stool Softener] AARTI (Cristian Cook MD [facility]) BLOOD SUGAR DIAGNOSTIC 02/15/2021 12:00:00 AM EDT strip 100 CHECK BLOOD SUGARS TWO TIMES A DAY AND NEEDED CHECK BLOOD SUGARS TWO TIMES A DAY AND A S NEEDED SOLD: 04/04/2021 [facility] BLOOD SUGAR DIAGNOSTIC 02/15/2021 12:00:00 AM EDT strip 100 CHECK BLOOD SUGARS TWO TIMES A DAY AND NEEDED CHECK BLOOD SUGARS TWO TIMES A DAY AND A S NEEDED SOLD: 02/15/2021 [facility] Metronidazole 500 MG Oral Tablet METRONIDAZOLE 01/12/2021 12:0 0:00 AM EST tablet 93 TAKE ONE TABLET BY MOUTH EVERY 8 HOURS TAKE ONE TABLET BY MOUTH EVERY 8 HOURS SOLD: 01/12/2021 [facility] 20 mg 12/31/2020 12:00:00 AM EST tablet 30 TAKE ONE TABLET BY MOUTH AT BEDTIME TAKE ONE TABLET BY MOUTH AT BEDTIME SOLD: 03/22/2021 [facility] 20 mg 12/31/2020 12:00:00 AM EST tablet 30 TAKE ONE TABLET BY MOUTH AT BEDTIME TAKE ONE TABLET BY MOUTH AT BEDTIME SOLD: 07/27/2021 [facility] 20 mg 12/31/2020 12:00:00 AM EST tablet 30 TAKE ONE TABLET BY MOUTH AT BEDTIME TAKE ONE TABLET BY MOUTH AT BEDTIME SOLD: 06/20/2021 [facility] 20 mg 12/31/2020 12:00:00 AM EST tablet 90 TAKE ONE TABLET BY MOUTH AT BEDTIME TAKE ONE TABLET BY MOUTH AT BEDTIME SOLD: 01/05/2021 [facility] doxycycline hyclate 100 MG Oral [...] ONE TABLET BY MOUTH AT BEDTIME SOLD: 01/24/2021 [facility] 0.25 mg 11/16/2020 12:00:00 AM EST tablet 30 TAKE ONE TABLET BY MOUTH AT BEDTIME TAKE ONE TABLET BY MOUTH AT BEDTIME SOLD: 11/16/2020 [facility] 0.25 mg 11/16/2020 12:00:00 AM EST tablet 30 TAKE ONE TABLET BY MOUTH AT BEDTIME TAKE ONE TABLET BY MOUTH AT BEDTIME SOLD: 12/24/2020 [facility] 3 ML Insulin Glargine 100 UNT/ML Pen Injector [Lantus] 100 unit/mL (3 mL) INSULIN GLARGINE,[email or web address] 11/15/2020 12:00:00 AM EST insulin pen 30 INJECT 50 UNITS SUBCUTANEOUSLY EVERY MORNING AND 30 UNITS EVERY EVENING MAXIMUM DAILY DOSE = 80 UNITS INJECT 50 UNITS SUBCUTANEOUSLY EVERY MOR ISABELLA AND 30 UNITS EVERY EVENING MAXIMUM DAILY DOSE = 80 UNITS SOLD: 06/22/2021 [facility] 100 unit/mL (3 mL) 11/15/2020 12:00:00 AM EST insulin pen 30 INJECT 50 UNITS SUBCUTANEOUSLY EVERY MORNING AND 30 UNITS EVERY EVENING MAXIMUM DAILY DOSE = 80 UNITS INJECT 50 UNITS SUBCUTANEOUSLY EVERY MOR ISABELLA AND 30 UNITS EVERY EVENING MAXIMUM DAILY DOSE = 80 UNITS SOLD: 11/15/2020 [facility] 3 ML Insulin Glargine 100 UNT/ML Pen Injector [Lantus] 100 unit/mL (3 mL) INSULIN GLARGINE,[email or web address] 11/15/2020 12:00:00 AM EST insulin pen 30 INJECT 50 UNITS SUBCUTANEOUSLY EVERY MORNING AND 30 UNITS EVERY EVENING MAXIMUM DAILY DOSE = 80 UNITS INJECT 50 UNITS SUBCUTANEOUSLY EVERY MOR ISABELLA AND 30 UNITS EVERY EVENING MAXIMUM DAILY DOSE = 80 UNITS SOLD: 05/09/2021 [facility] 3 ML Insulin Glargine 100 UNT/ML Pen Injector [Lantus] 100 unit/mL (3 mL) INSULIN GLARGINE,[email or web address] 11/15/2020 12:00:00 AM EST insulin pen 30 INJECT 50 UNITS SUBCUTANEOUSLY EVERY MORNING AND 30 UNITS EVERY EVENING MAXIMUM DAILY DOSE = 80 UNITS INJECT 50 UNITS SUBCUTANEOUSLY EVERY MOR ISABELLA AND 30 UNITS EVERY EVENING MAXIMUM DAILY DOSE = 80 UNITS SOLD: 03/19/2021 [facility] 100 unit/mL (3 mL) 11/15/2020 12:00:00 AM EST insulin pen 30 INJECT 50 UNITS SUBCUTANEOUSLY EVERY MORNING AND 30 UNITS EVERY EVENING MAXIMUM DAILY DOSE = 80 UNITS INJECT 50 UNITS SUBCUTANEOUSLY EVERY MOR ISABELLA AND 30 UNITS EVERY EVENING MAXIMUM DAILY DOSE = 80 UNITS SOLD: 01/25/2021 [facility] 81 mg 09/17/2020 12:00:00 AM EST tablet,delayed release (DR/EC) 30 TAKE ONE TABLET BY MOUTH EVERY DAY TAKE ONE TABLET BY MOUTH EVERY DAY SOLD: 09/18/2020 [facility] 75 mg 09/17/2020 12:00:00 AM EST tablet 90 TAKE ONE TABLET BY MOUTH EVERY DAY TAKE ONE TABLET BY MOUTH EVERY DAY SOLD: 12/24/2020 [facility] 75 mg 09/17/2020 12:00:00 AM EST tablet 90 TAKE ONE TABLET BY MOUTH EVERY DAY TAKE ONE TABLET BY MOUTH EVERY DAY SOLD: 09/18/2020 [facility] 75 mg 09/17/2020 12:00:00 AM EST tablet 30 TAKE ONE TABLET BY MOUTH EVERY DAY TAKE ONE TABLET BY MOUTH EVERY DAY SOLD: 03/23/2021 [facility] 81 mg 09/17/2020 12:00:00 AM EST tablet,delayed release (DR/EC) 30 TAKE ONE TABLET BY MOUTH EVERY DAY TAKE ONE TABLET BY MOUTH EVERY DAY SOLD: 10/19/2020 [facility] 325 mg (65 mg iron) 09/08/2020 12:00:00 AM EDT tablet 60 TAKE ONE TABLET BY MOUTH TWICE A DAY TAKE ONE TABLET BY MOUTH TWICE A DAY SOLD: 09/08/2020 [facility] 1,250 mcg (50,000 unit) 09/08/2020 12:00:00 AM EDT capsule 12 TAKE 1 CAPSULE BY MOUTH ONCE A WEEK TAKE 1 CAPSULE BY MOUTH ONCE A WEEK SOLD: 09/08/2020 [facility] doxycycline hyclate 100 [...] {tablet} active Doxycycline Hyclate 100 MG eCW1 ([facility]) 0.25 mg 08/07/2020 12:00:00 AM EDT tablet 30 TAKE ONE TABLET BY MOUTH AT BEDTIME TAKE ONE TABLET BY MOUTH AT BEDTIME SOLD: 09/14/2020 [facility] 0.25 mg 08/07/2020 12:00:00 AM EDT tablet 30 TAKE ONE TABLET BY MOUTH AT BEDTIME TAKE ONE TABLET BY MOUTH AT BEDTIME SOLD: 08/08/2020 [facility] 0.25 mg 08/07/2020 12:00:00 AM EDT tablet 30 TAKE ONE TABLET BY MOUTH AT BEDTIME TAKE ONE TABLET BY MOUTH AT BEDTIME SOLD: 10/12/2020 [facility] 31 gauge x 1/4" 07/31/2020 [...] DAY DIRECTED THREE TIMES A DAY SOLD: 05/09/2021 [facility] 31 gauge x 1/4" 07/31/2020 [...] NAUSEA AND VOMITING SOLD: 07/30/2020 [facility] 20 mg 04/13/2020 12:00:00 AM EDT tablet 90 TAKE ONE TABLET BY MOUTH AT BEDTIME TAKE ONE TABLET BY MOUTH AT BEDTIME SOLD: 07/29/2020 [facility] Ibuprofen 400 MG Oral Tablet Ibuprofen 400MG Oral Tabl et Ibuprofen 400MG Oral Tablet 07/19/2019 12:00:00 AM EDT 1 aborted ibuprofen 400 MG Oral Tablet AARTI (Cristian Cook MD [facility]) Ceftriaxone 2000 MG Injection ceftriaxone 2 gram solut ion for injection ceftriaxone 2 gram solution for injection completed ceftriaxone 2000 MG Injection YUNG ([facility]) Ceftriaxone 2000 MG Injection ceftriaxon e 2 gram/50 mL in dextrose (iso-osm) intravenous piggyback Infuse 50 mL every day by intravenous route for 42 days. ceftriaxone 2 gram/50 mL in dextrose (iso-osm) intravenous piggyback Infuse 50 mL every day by intravenous route for 42 days. 50 mL completed ceftriaxone 2000 MG Injection YUNG ([facility]) ferrous sulfate 325 MG Oral Tablet bozena us sulfate 325 mg (65 mg iron) tablet TAKE ONE TABLET BY MOUTH TWICE A DAY ferrous sulfate 325 mg (65 mg iron) tabl et TAKE ONE TABLET BY MOUTH TWICE A DAY c ompleted ferrous sulfate 325 MG Oral Tablet YUNG ([facility]) ferrous sulfate 325 MG Oral Tablet bozena us sulfate 325 mg (65 mg iron) tablet TAKE ONE TABLET BY MOUTH TWICE A DAY ferrous sulfate 325 mg (65 mg iron) tabl et TAKE ONE TABLET BY MOUTH TWICE A DAY c ompleted ferrous sulfate 325 MG Oral Tablet YUNG ([facility]) ferrous sulfate 325 MG Oral Tablet bozena us sulfate 325 mg (65 mg iron) tablet TAKE ONE TABLET BY MOUTH TWICE A DAY ferrous sulfate 325 mg (65 mg iron) tabl et TAKE ONE TABLET BY MOUTH TWICE A DAY c ompleted ferrous sulfate 325 MG Oral Tablet YUNG ([facility]) clopidogrel 75 MG Oral Tablet clopidogrel 75 mg tablet clopi dogrel 75 mg tablet completed clopidogrel 75 MG Oral Tablet [place] ([facility]) Levofloxacin 750 MG Oral Tablet levofloxacin 750 mg ta blet levofloxacin 750 mg tablet completed levofloxacin 75 0 MG Oral Tablet [place] ([facility]) Clindamycin 300 MG Oral Capsule clindamycin HCl 300 mg capsule clindamycin HCl 300 mg capsule completed clindam ycin 300 MG Oral Capsule [place] ([facility]) Metronidazole 500 MG Oral Tablet metronidazole 500 mg tablet metronidazole 500 mg tablet completed metronidazol e 500 MG Oral Tablet [place] ([facility]) Erythromycin 333 MG Delayed Release Oral Tablet erythromycin 333 mg tablet,delayed release erythromycin 333 mg tablet,delayed release completed erythromycin 333 MG Delayed Rele ase Oral Tablet [place] ([facility]) Penicillin V Potassium 500 MG Oral Tablet penicillin V potassium 500 mg tablet penicillin V potassium 500 mg tablet c ompleted penicillin V potassium 500 MG Oral Tablet [place] ([facility]) Cephalexin 500 MG Oral Capsule cephalexin 500 mg capsu le cephalexin 500 mg capsule completed cephalexin 500 MG Oral Capsule [place] ([facility]) Ondansetron 4 MG Oral Tablet ondansetron HCl 4 mg tabl et ondansetron HCl 4 mg tablet completed ondansetron 4 M G Oral Tablet [place] ([facility]) Clindamycin 300 MG Oral Capsule clindamycin HCl 300 mg capsule clindamycin HCl 300 mg capsule completed clindam ycin 300 MG Oral Capsule [place] ([facility]) silver sulfadiazine 10 MG/ML Topical Cre am silver sulfadiazine 1 % topical cream silver sulfadiazine 1 % topical cream completed silver sulfadiazine 10 MG/ML Topical Cream [place] ([facility]) Levofloxacin 750 MG Oral Tablet levofloxacin 750 mg ta blet levofloxacin 750 mg tablet completed levofloxacin 75 0 MG Oral Tablet [place] ([facility]) Metronidazole 500 MG Oral Tablet metroni dazole 500 mg tablet Take 1 tablet every 8 hours by oral route. metronidazole 500 mg tablet Take 1 table t every 8 hours by oral route. 1 completed metroni dazole 500 MG Oral Tablet [place] ([facility]) Cephalexin 500 MG Oral Capsule cephalexin 500 mg capsu le cephalexin 500 mg capsule completed cephal[facility] 500 [facility] Cephalexin 500 MG Oral Capsule cephalexin 500 mg capsu le cephalexin 500 mg capsule completed cephalexin 500 MG Oral Capsule [place] ([facility]) Penicillin V Potassium 500 MG Oral Tablet penicillin V potassium 500 mg tablet penicillin V potassium 500 mg tablet c ompleted penicillin V potassium 500 MG Oral Tablet YUNG ([facility]) silver sulfadiazine 10 MG/ML Topical Cre am silver sulfadiazine 1 % topical cream silver sulfadiazine 1 % topical cream completed silver sulfadiazine 10 MG/ML Topical Cream [place] ([facility]) Levofloxacin 750 MG Oral Tablet levofloxacin 750 mg ta blet levofloxacin 750 mg tablet completed levofloxacin 75 0 MG Oral Tablet [place] ([facility]) Ondansetron 4 MG Oral Tablet ondansetron HCl 4 mg tabl et ondansetron HCl 4 mg tablet completed ondansetron 4 M G Oral Tablet [place] ([facility]) Cephalexin 500 MG Oral Capsule cephalexin 500 mg capsu le cephalexin 500 mg capsule completed cephalexin 500 MG Oral Capsule [place] ([facility]) doxycycline hyclate 100 MG Oral Tablet doxycycline hyc late 100 mg tablet doxycycline hyclate 100 mg tablet comp leted doxycycline hyclate 100 MG Oral Tablet [place] ([facility]) Erythromycin 333 MG Delayed Release Oral Tablet erythromycin 333 mg tablet,delayed release erythromycin 333 mg tablet,delayed release completed erythromycin 333 MG Delayed Rele ase Oral Tablet [place] ([facility]) silver sulfadiazine 10 MG/ML Topical Cre am silver sulfadiazine 1 % topical cream silver sulfadiazine 1 % topical cream completed silver sulfadiazine 10 MG/ML Topical Cream [place] ([facility]) Clindamycin 300 MG Oral Capsule clindamycin HCl 300 mg capsule clindamycin HCl 300 mg capsule completed clindam ycin 300 MG Oral Capsule [place] ([facility]) Erythromycin 333 MG Delayed Release Oral Tablet erythromycin 333 mg tablet,delayed release erythromycin 333 mg tablet,delayed release completed erythromycin 333 MG Delayed Rele ase Oral Tablet [place] ([facility]) Penicillin V Potassium 500 MG Oral Tablet penicillin V potassium 500 mg tablet penicillin V potassium 500 mg tablet c ompleted penicillin V potassium 500 MG Oral Tablet YUNG ([facility]) Ondansetron 4 MG Oral Tablet ondansetron HCl 4 mg tabl et ondansetron HCl 4 mg tablet completed ondansetron 4 M G Oral Tablet [place] ([facility]) Cefadroxil 500 MG Oral Capsule cefadroxi l 500 mg capsule TAKE TWO CAPSULES BY MOUTH EVERY DAY cefadroxil 500 mg capsule TAKE TWO CAPSULES BY MOUTH E VERY DAY completed cefadroxil 500 MG Oral Capsule [place] ([facility]) Levofloxacin 750 MG Oral Tablet levofloxacin 750 mg ta blet levofloxacin 750 mg tablet completed levofloxacin 75 0 MG Oral Tablet [place] ([facility]) Penicillin V Potassium 500 MG Oral Tablet penicillin V potassium 500 mg tablet penicillin V potassium 500 mg tablet c ompleted penicillin V potassium 500 MG Oral Tablet [place] ([facility]) Clindamycin 300 MG Oral Capsule clindamycin HCl 300 mg capsule clindamycin HCl 300 mg capsule completed clindam ycin 300 MG Oral Capsule [place] ([facility]) doxycycline hyclate 100 MG Oral Tablet d oxycycline hyclate 100 mg tablet TAKE ONE TABLET BY MOUTH TWICE A DAY FOR 10 DAYS doxycycline hyclate 100 mg tablet TAKE ONE TABLET BY MOUTH TWICE A DAY FOR 10 DAYS completed doxycycline hyclate 100 MG Oral Tablet [place] ([facility]) silver sulfadiazine 10 MG/ML Topical Cre am silver sulfadiazine 1 % topical cream silver sulfadiazine 1 % topical cream completed silver sulfadiazine 10 MG/ML Topical Cream [place] ([facility]) Erythromycin 333 MG Delayed Release Oral Tablet erythromycin 333 mg tablet,delayed release erythromycin 333 mg tablet,delayed release completed erythromycin 333 MG Delayed Rele ase Oral Tablet [place] ([facility]) Insurance Providers Payer name Policy type / Coverage type Policy ID Covered green party ID Covered green party's relationship to landon Policy Landon Plan Information Bso ZFC,Yot,Yoy,ZFH,ZFP [facility] Part B [id number] Self [id number] MVP (pr) Commercial [id number] Self [id number] [employer] [place] PPO 302/307 [id number] SP [id number] [facility] P [id number] S [id number] [facility] P [id number] S [id number] [facility] P [id number] S [id number] [facility] P [id number] S [id number] Medicare P [id number] S [id number] A Blue [facility] Commercial [id number] Self [id number] [facility] [employer] P [id number] S [id number] [facility] [employer] P [id number] S [id number] Medicare S [id number] S [id number] A [facility] [id number] SP [id number] MEDICARE BLUE PPO 306 [id number] SP [id number] SELF PAY ONLY [id number] SP [id number] MEDICARE COMPLETE-UHC O [id number] S [id number] [id number] SP [id number] [facility] [id number] SP [id number] [employer] S [id number] S [id number] [id number] MEDICARE COMPLETE-UHC O [id number] S [id number] MEDICARE COMPLETE [id number] SP [id number] [employer] BCYO P [id number] S VYM [id number] [facility] O [id number] S [id number] SELF PAY ONLY UNAVAILABLE SP UNAV AILABLE MEDICARE COMPLETE [id number] SP [id number] Self Pay P [id number] S [id number] [facility] [id number] SP [id number] [facility] [id number] SP [id number] [facility] PHY [id number] SP [id number] [facility] COMM HMO [id number] S [id number] [facility] O [id number] S [id number] [facility] PHY [id number] SP [id number] SELF PAY UNAVAILABLE UNAVAILA BLE Sliding Fee Scale S [id number] S [id number] [facility] P [id number] S [id number] P UNAVAILABLE UNAVAILA BLE [facility] P [id number] S [id number] [facility] P [id number] S [id number] [place] [id number] SP [id number] MEDICARE COMPLETE [id number] SP [id number] MEDICARE COMPLETE [id number] SP [id number] Medicaid 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 Problem 08/24/2021 12:00:00 AM EDT eCW1 ([facility]) 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 Problem 08/24/2021 12:00: 00 AM EDT eCW1 ([facility]) Z12.31 [id number] Breast cancer screening by mammogram Prob tayler 08/24/2021 12:00:00 AM EDT eCW1 ([facility]) 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 08/24/2021 12:0 0:00 AM EDT eCW1 ([facility]) L97.522 [id number] Non-pressure chronic ulcer of other part of left foot with fat layer exposed Problem 08/13/2021 12:00:00 AM EDT eCW1 ([facility]) L97.414 [id number] Non-pressure chronic ulcer of right heel and midfoot with necrosis of bone Problem 04/02/2021 12:00:00 AM EDT eCW1 ([facility]) [id number] Posterior Vitreous Detachment Right Eye Posterior Vitreous Detachment Right Eye Problem 03/11/2021 12:00:00 AM EDT AARTI (Rickie Cook MD [facility]) I10 [id number] Essential hypertension Problem 01/21/2021 12 :00:00 AM EST eCW1 ([facility]) M86.171 [id number] Acute osteomyelitis of right calcaneus Pr oblem 01/21/2021 12:00:00 AM EST eCW1 ([facility]) B35.1 [id number] Tinea unguium Problem 01/21/2021 12:00:00 AM EST eCW1 ([facility]) E11.69 [id number] Type 2 diabetes mellitus with ot her specified complication Problem 01/21/2021 12:00:00 AM EST eCW1 ([facility]) B35.1 [id number] Onychomycosis of toenail Problem 01/21/2021 12:00:00 AM EST eCW1 ([facility]) E10.69 [id number] Type 1 diabetes mellitus with ot her specified complication Problem 01/21/2021 12:00:00 AM EST eCW1 ([facility]) L97.422 [id number] Non-pressure chronic ulcer of left heel and midfoot with fat layer exposed Problem 09/25/2020 12:00:00 AM EST eCW1 ([facility]) L97.411 [id number] Non-pressure chronic ulcer of right 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 Problem 08/28/2020 12:00:00 AM EDT eCW1 ([facility]) [id number] Clinical finding Clinical Finding Problem 08/27/2020 04 :30:27 PM EDT YUNG ([facility]) [id number] Clinical finding Clinical Finding Problem 08/27/2020 04 :30:27 PM EDT YUNG ([facility]) [id number] Clinical finding Clinical Finding Problem 08/27/2020 04 :30:27 PM EDT YUNG ([facility]) [id number] Clinical finding Clinical Finding Problem 08/27/2020 04 :30:27 PM EDT [place] ([facility]) L97.524 [id number] Non-pressure chronic ulcer of other part of left foot with necrosis of bone Problem 08/14/2020 12:00:00 AM EDT [facility] ([facility]) E11.621 [id number] Type 2 diabetes mellitus with foot ulcer Problem 08/13/2020 12:00:00 AM EDT eC ([facility]) L97.512 [id number] Non-pressure chronic ulcer of other part of right foot with fat layer exposed Problem 08/13/2020 12:00:00 AM EDT [facility] ([facility]) Z89.422 Acquired absence of other left toe(s) Amputated toe of left foot 08/12/2020 06:09:35 AM EDT [facility] V05.9 Vaccination Vaccination 08/12/2020 06:09:35 AM EDT [facility] [id number] SNOMED CT Concept SNOMED CT Concept Problem 08/06 12:00:00 AM EDT [place] ([facility]) [id number] Influenza vaccine needed Influenza Vaccine Needed Pro blem 08/06/2020 12:00:00 AM EDT [place] ([facility]) [id number] SNOMED CT Concept SNOMED CT Concept Problem 08/06 12:00:00 AM EDT [place] ([facility]) [id number] Influenza vaccine needed Influenza Vaccine Needed Pro blem 08/06/2020 12:00:00 AM EDT [place] ([facility]) [id number] SNOMED CT Concept SNOMED CT Concept Problem 08/06 12:00:00 AM EDT [place] ([facility]) [id number] Influenza vaccine needed Influenza Vaccine Needed Pro blem 08/06/2020 12:00:00 AM EDT [place] ([facility]) Surgeries/Procedures Procedure Description Date Indications Data Source(s) Medication: 4% Lidocaine topical cream (Anecream) 30 gm 09/17/2021 12:00:00 AM EDT eC ([facility]) Medication: 4% Lidocaine topical cream (Anecream) 30 gm 09/10/2021 12:00:00 AM EDT eCW1 ([facility]) Med: Cadexomer Iodine gel topical IODOSORB 10gm 2020 12:00:00 AM EDT eCW1 ([facility]) FINE NEEDLE ASPIRATION W/O IMAGING GUIDANCE 08/27/2021 12:00:00 AM EDT eCW1 ([facility]) Imm: Flublok Quadrivalent 18 years & older 0.5mL IM Influenz a 08/24/2021 12:00:00 AM EDT eCW1 ([facility]) PNEUMOCOCCAL POLYSAC VACCINE 23-V 2 />YR SUBQ/IM 08/24 12:00:00 AM EDT eCW1 ([facility]) FINE NEEDLE ASPIRATION W/O IMAGING GUIDANCE 08/20/2021 12:00:00 AM EDT eCW1 ([facility]) Med: Cadexomer Iodine gel topical IODOSORB 10gm 2020 12:00:00 AM EDT eCW1 ([facility]) FINE NEEDLE ASPIRATION W/O IMAGING GUIDANCE 08/13/2021 12:00:00 AM EDT eCW1 ([facility]) Medication: 4% Lidocaine topical cream (Anecream) 30 gm 07/30/2021 12:00:00 AM EDT eCW1 ([facility]) FINE NEEDLE ASPIRATION W/O IMAGING GUIDANCE 07/23/2021 12:00:00 AM EDT eCW1 ([facility]) Medication: 4% Lidocaine topical cream (Anecream) 30 gm 07/16/2021 12:00:00 AM EDT eCW1 ([facility]) FINE NEEDLE ASPIRATION W/O IMAGING GUIDANCE 07/08/2021 12:00:00 AM EDT eCW1 ([facility]) Medication: 4% Lidocaine topical cream (Anecream) 30 gm 07/01/2021 12:00:00 AM EDT eCW1 ([facility]) Medication: 4% Lidocaine topical cream (Anecream) 30 gm 2021 12:00:00 AM EDT eCW1 ([facility]) Medication: 4% Lidocaine topical cream (Anecream) 30 gm 06/18/2021 12:00:00 AM EDT eCW1 ([facility]) Medication: 4% Lidocaine topical cream (Anecream) 30 gm 06/11/2021 12:00:00 AM EDT eCW1 ([facility]) Medication: 4% Lidocaine topical cream (Anecream) 30 gm 05/28/2021 12:00:00 AM EDT eCW1 ([facility]) Medication: 4% Lidocaine topical cream (Anecream) 30 gm 05/25/2021 12:00:00 AM EDT eCW1 ([facility]) Medication: 4% Lidocaine topical cream (Anecream) 30 gm 05/14/2021 12:00:00 AM EDT eCW1 ([facility]) Medication: 2% Lidocaine intradermal 05/14/2021 12:00: 00 AM EDT eCW1 ([facility]) Capillary Blood Glucose Pre and Post HBO Treatment 05/04/2021 12:00:00 AM EDT eCW1 ([facility]) Capillary Blood Glucose Pre and Post HBO Treatment 05/03/2021 12:00:00 AM EDT eCW1 ([facility]) FINE NEEDLE ASPIRATION W/O IMAGING GUIDANCE 04/30/2021 12:00:00 AM EDT eCW1 ([facility]) Medication: 2% Lidocaine intradermal 04/30/2021 12:00: 00 AM EDT eCW1 ([facility]) HBO Protocol 2.0 FEMI for 90 Minutes without Air Breaks 04/30/2021 12:00:00 AM EDT eCW1 ([facility]) HBO Protocol 2.0 FEMI for 90 Minutes without Air Breaks 04/29/2021 12:00:00 AM EDT eCW1 ([facility]) Capillary Blood Glucose Pre and Post HBO Treatment 04/28/2021 12:00:00 AM EDT eCW1 ([facility]) Capillary Blood Glucose Pre and Post HBO Treatment 04/27/2021 12:00:00 AM EDT eCW1 ([facility]) Capillary Blood Glucose Pre and Post HBO Treatment 04/26/2021 12:00:00 AM EDT eCW1 ([facility]) FINE NEEDLE ASPIRATION W/O IMAGING GUIDANCE 04/23/2021 12:00:00 AM EDT eCW1 ([facility]) Capillary Blood Glucose Pre and Post HBO Treatment 04/23/2021 12:00:00 AM EDT eCW1 ([facility]) Capillary Blood Glucose Pre and Post HBO Treatment 04/22/2021 12:00:00 AM EDT eCW1 ([facility]) Capillary Blood Glucose Pre and Post HBO Treatment 04/21/2021 12:00:00 AM EDT eCW1 ([facility]) Capillary Blood Glucose Pre and Post HBO Treatment 04/20/2021 12:00:00 AM EDT eCW1 ([facility]) Capillary Blood Glucose Pre and Post HBO Treatment 04/19/2021 12:00:00 AM EDT eCW1 ([facility]) Capillary Blood Glucose Pre and Post HBO Treatment 04/16/2021 12:00:00 AM EDT eCW1 ([facility]) FINE NEEDLE ASPIRATION W/O IMAGING GUIDANCE 04/16/2021 12:00:00 AM EDT eCW1 ([facility]) Capillary Blood Glucose Pre and Post HBO Treatment 04/15/2021 12:00:00 AM EDT eCW1 ([facility]) Capillary Blood Glucose Pre and Post HBO Treatment 04/14/2021 12:00:00 AM EDT eCW1 ([facility]) Capillary Blood Glucose Pre and Post HBO Treatment 04/13/2021 12:00:00 AM EDT eCW1 ([facility]) Medication: 4% Lidocaine topical cream (Anecream) 30 gm 04/09/2021 12:00:00 AM EDT eCW1 ([facility]) Capillary Blood Glucose Pre and Post HBO Treatment 04/09/2021 12:00:00 AM EDT eCW1 ([facility]) Capillary Blood Glucose Pre and Post HBO Treatment 04/08/2021 12:00:00 AM EDT eCW1 ([facility]) Capillary Blood Glucose Pre and Post HBO Treatment 04/07/2021 12:00:00 AM EDT eCW1 ([facility]) 04/06/2021 12:00:00 AM EDT e CW1 ([facility]) Capillary Blood Glucose Pre and Post HBO Treatment 04/05/2021 12:00:00 AM EDT eCW1 ([facility]) FINE NEEDLE ASPIRATION W/O IMAGING GUIDANCE 04/02/2021 12:00:00 AM EDT eCW1 ([facility]) 04/02/2021 12:00:00 AM EDT e CW1 ([facility]) Capillary Blood Glucose Pre and Post HBO Treatment 04/01/2021 12:00:00 AM EDT eCW1 ([facility]) Capillary Blood Glucose Pre and Post HBO Treatment 03/29/2021 12:00:00 AM EDT eCW1 ([facility]) Medication: 4% Lidocaine topical cream (Anecream) 30 gm 03/26/2021 12:00:00 AM EDT eCW1 ([facility]) Capillary Blood Glucose Pre and Post HBO Treatment 03/26/2021 12:00:00 AM EDT eCW1 ([facility]) Capillary Blood Glucose Pre and Post HBO Treatment 03/25/2021 12:00:00 AM EDT eCW1 ([facility]) Capillary Blood Glucose Pre and Post HBO Treatment 03/24/2021 12:00:00 AM EDT eCW1 ([facility]) Capillary Blood Glucose Pre and Post HBO Treatment 03/23/2021 12:00:00 AM EDT eCW1 ([facility]) Medication: 4% Lidocaine topical cream (Anecream) 30 gm 03/19/2021 12:00:00 AM EDT eCW1 ([facility]) Capillary Blood Glucose Pre and Post HBO Treatment 03/19/2021 12:00:00 AM EDT eCW1 ([facility]) Capillary Blood Glucose Pre and Post HBO Treatment 03/18/2021 12:00:00 AM EDT eCW1 ([facility]) Capillary Blood Glucose Pre and Post HBO Treatment 03/17/2021 12:00:00 AM EDT eCW1 ([facility]) Capillary Blood Glucose Pre and Post HBO Treatment 03/16/2021 12:00:00 AM EDT eCW1 ([facility]) FINE NEEDLE ASPIRATION W/O IMAGING GUIDANCE 03/12/2021 12:00:00 AM EDT eCW1 ([facility]) Discission of membranous cataract, secondary (procedur e) 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 03/11/2021 12:00:00 AM EDT AARTI (Cristian Cook MD [facility]) Surgical / procedural history Surgical / procedural history 03/11/2021 12:00:00 AM EDT AARTI (Cristian Cook MD [facility]) Intermediate Eye Exam Established Patient Intermediate Eye Exam Established Patient 03/11/2021 12:00:00 AM EDT AARTI (Rickie Cook MD [facility]) HBO Protocol 2.0 FEMI for 90 Minutes without Air Breaks 03/09/2021 12:00:00 AM EDT eCW1 ([facility]) HBO Protocol 2.0 FEMI for 90 Minutes without Air Breaks 03/08/2021 12:00:00 AM EDT eCW1 ([facility]) Medication: 4% Lidocaine topical cream (Anecream) 30 gm 03/05/2021 12:00:00 AM EDT eCW1 ([facility]) Capillary Blood Glucose Pre and Post HBO Treatment 03/05/2021 12:00:00 AM EDT eCW1 ([facility]) Capillary Blood Glucose Pre and Post HBO Treatment 03/04/2021 12:00:00 AM EDT eCW1 ([facility]) Capillary Blood Glucose Pre and Post HBO Treatment 03/03/2021 12:00:00 AM EDT eCW1 ([facility]) Capillary Blood Glucose Pre and Post HBO Treatment 03/02/2021 12:00:00 AM EDT eCW1 ([facility]) Capillary Blood Glucose Pre and Post HBO Treatment 03/01/2021 12:00:00 AM EDT eCW1 ([facility]) Medication: 4% Lidocaine topical cream (Anecream) 30 gm 02/19/2021 12:00:00 AM EDT eCW1 ([facility]) Medication: 4% Lidocaine topical cream (Anecream) 30 gm 02/12/2021 12:00:00 AM EDT eCW1 ([facility]) Medication: 4% Lidocaine topical cream (Anecream) 30 gm 02/05/2021 12:00:00 AM EDT eCW1 ([facility]) Medication: 4% Lidocaine topical cream (Anecream) 30 gm 01/29/2021 12:00:00 AM EDT eCW1 ([facility]) Medication: 4% Lidocaine topical cream (Anecream) 30 gm 01/19/2021 12:00:00 AM EST eCW1 ([facility]) Medication: 2% Lidocaine intradermal 01/01/2021 12:00: 00 AM EST eCW1 ([facility]) Medication: 4% Lidocaine topical cream (Anecream) 30 gm 01/01/2021 12:00:00 AM EST eCW1 ([facility]) FINE NEEDLE ASPIRATION W/O IMAGING GUIDANCE 12/25/2020 12:00:00 AM EST eCW1 ([facility]) Medication: 2% Lidocaine intradermal 12/25/2020 12:00: 00 AM EST eCW1 ([facility]) Medication: 2% Lidocaine intradermal 12/15/2020 12:00: 00 AM EST eCW1 ([facility]) FINE NEEDLE ASPIRATION W/O IMAGING GUIDANCE 12/15/2020 12:00:00 AM EST eCW1 ([facility]) FINE NEEDLE ASPIRATION W/O IMAGING GUIDANCE 12/04/2020 12:00:00 AM EST eCW1 ([facility]) FINE NEEDLE ASPIRATION W/O IMAGING GUIDANCE 11/27/2020 12:00:00 AM EST eCW1 ([facility]) FINE NEEDLE ASPIRATION W/O IMAGING GUIDANCE 11/20/2020 12:00:00 AM EST eCW1 ([facility]) FINE NEEDLE ASPIRATION W/O IMAGING GUIDANCE 10/30/2020 12:00:00 AM EST eCW1 ([facility]) FINE NEEDLE ASPIRATION W/O IMAGING GUIDANCE 10/23/2020 12:00:00 AM EST eCW1 ([facility]) FINE NEEDLE ASPIRATION W/O IMAGING GUIDANCE 10/16/2020 12:00:00 AM EST eCW1 ([facility]) FINE NEEDLE ASPIRATION W/O IMAGING GUIDANCE 09/25/2020 12:00:00 AM EST eCW1 ([facility]) FINE NEEDLE ASPIRATION W/O IMAGING GUIDANCE 09/18/2020 12:00:00 AM EST eCW1 ([facility]) FINE NEEDLE ASPIRATION W/O IMAGING GUIDANCE 09/11/2020 12:00:00 AM EDT eCW1 ([facility]) FINE NEEDLE ASPIRATION W/O IMAGING GUIDANCE 09/04/2020 12:00:00 AM EDT eCW1 ([facility]) FINE NEEDLE ASPIRATION W/O IMAGING GUIDANCE 08/28/2020 12:00:00 AM EDT eCW1 ([facility]) FINE NEEDLE ASPIRATION W/O IMAGING GUIDANCE 08/21/2020 12:00:00 AM EDT eCW1 ([facility]) Results ID Date Data Source CBC with Auto Differential 08/24/2021 12:00:00 AM EDT eCW1 ( [facility]) Name Value Range Interpretation Code Description Data Lynette rce(s) Supporting Document(s) 8.0 4.0-10.0 WHITE BLOOD COUNT eCW1 ([facility]) 4.37 4.00-5.40 RED BLOOD COUNT eCW1 ([facility]) 36.6 36.0-47.0 HEMATOCRIT eCW1 ([facility]) 83.8 80.0-96.0 MEAN CORPUSCULAR VOLUME e CW1 ([facility]) 11.1 12.0-15.5 HEMOGLOBIN eCW1 ([facility]) 14.1 11.5-14.5 RED CELL DISTRIBUTION WID TH eCW1 ([facility]) 25.4 27.0-33.0 MEAN CORPUSCULAR HEMOGLOB IN eCW1 ([facility]) 30.3 32.0-36.5 MEAN CORPUSCULAR HGB CONC eCW1 ([facility]) 358 150-450 PLATELET COUNT, AUTOMATED eCW1 ([facility]) 66.2 36.0-66.0 NEUTROPHILS % eCW1 ([facility]) 8.1 2.0-8.0 MONO % eCW1 ([facility]) 22.8 24.0-44.0 LYMPH % eCW1 ([facility]) 0.3 0-3.0 IMMATURE GRANULOCYTE % eCW1 ([facility]) 0.6 0.0-1.0 BASO % eCW1 ([facility]) 2.0 0.0-3.0 EOS % eCW1 ([facility]) 0.0 0-0 NUCLEATED RED BLOOD CELL % eCW 1 ([facility]) 0.6 0.0-0.8 MONO # eCW1 ([facility]) 1.8 1.5-5.0 LYMPH # eCW1 ([facility]) 5.3 1.5-8.5 NEUTROPHILS # eCW1 ([facility]) 0.2 0.0-0.5 EOS # eCW1 ([facility]) 0.1 0.0-0.2 BASO # eCW1 ([facility]) ID Date Data Source [id number] 08/24/2021 12:00:00 AM EDT eCW1 ([facility]) Name Value Range Interpretation Code Description Data Lynette rce(s) Supporting Document(s) Microalbumin/Creatinine [Mass Ratio] in Urine 142.0 CREATININE, URINE eCW1 ([facility]) Albumin/Creatinine [Mass Ratio] in Urine 7.4 MALB URINE SIEMENS eCW1 ([facility]) Microalbumin/Creatinine [Ratio] in Urine 5.2 0.0-30.0 VIET/CREAT RATIO W1 ([facility]) ID Date Data Source [id number] 08/24/2021 12:00:00 AM EDT eCW1 ([facility]) Name Value Range Interpretation Code Description Data Lynette rce(s) Supporting Document(s) Hemoglobin A1c/Hemoglobin.total in Blood 6.0 HEMOGLOBIN A1c [facility] ([facility]) ID Date Data Source [id number] 2021 10:44:00 AM EDT [place] ([facility]) Name Value Range Interpretation Code Description Data Lynette rce(s) Supporting Document(s) bedside glucose 100 mg/dL 80-115 [facility]side [facility] ID Date Data Source [id number] 2021 10:26:00 AM EDT [place] ([facility]) Name Value Range Interpretation Code Description Data Lynette rce(s) Supporting Document(s) glucose, fasting 93 mg/dL 70-100 Glucose, Fasting AT [facility]) blood urea nitrogen 17 mg/dL 7-18 Blood Urea Nitro gen [place] ([facility]) creatinine for GFR 0.85 mg/dL 0.55-1.30 Creatinine for GF R [place] ([facility]) glomerular filtration rate > 60.0 >45 Glomerula r Filtration Rate Y[place]G ([facility]) sodium level 136 mEq/L 136-145 Sodium Level YUNG ([facility]) potassium serum 4.5 mEq/L 3.5-5.1 Potassium Serum ATHE NA ([facility]) chloride level 103 mEq/L 98-107 Chloride Level [place] ([facility]) carbon dioxide level 26 mEq/L 21-32 Carbon Dioxide Level Y[place] ([facility]) anion gap 7 mEq/L 8-16 Below low normal Anion Gap [place] ( [facility]) calcium level 9.3 mg/dL 8.8-10.2 Calcium Level [place] ( [facility]) ID Date Data Source [id number] 2021 10:26:00 AM EDT [place] ([facility]) Name Value Range Interpretation Code Description Data Lynette rce(s) Supporting Document(s) prothrombin time 13.7 seconds 12.7-14.5 Prothrombin Time Y[place] ([facility]) INR Inr YUNG ([facility]) partial thromboplastin time 30.9 seconds 25.9-37.0 Partial Thromboplastin Time Y[place] ([facility]) ID Date Data Source [id number] 2021 10:26:00 AM EDT [place] ([facility]) Name Value Range Interpretation Code Description Data Lynette rce(s) Supporting Document(s) white blood count 7.6 10 4.0-10.0 White Blood Count Y[place]G ([facility]) red blood count 4.44 10 4.00-5.40 Red Blood Count ATHE ([facility]) hemoglobin 11.6 g/dL 12.0-15.5 Below low normal Hemoglobin Y[place] ( [facility]) hematocrit 36.9 % 36.0-47.0 Hematocrit Y[place] ([facility]) mean corpuscular volume 83.1 fL 80.0-96.0 Mean Corpusc ular Volume Y[place] ([facility]) mean corpuscular hemoglobin 26.1 pg 27.0-33.0 Below low nor mal Mean Corpuscular Hemoglobin Y[place]G ([facility]) mean corpuscular HGB conc 31.4 g/dL 32.0-36.5 Below low chiqui l Mean Corpuscular HGB Conc [place] ([facility]) red cell distribution width 14.2 % 11.5-14.5 Red Cell Distribution Width [place] ([facility]) platelet count, automated 331 10 150-450 Platelet C ount, Automated [place] ([facility]) neutrophils % 73.3 % 36.0-66.0 Above high normal Neutrophils % A THENA ([facility]) lymph % 18.5 % 24.0-44.0 Below low normal Lymph % Y[place] ( [facility]) mono % 6.7 % 2.0-8.0 [place] % YUNG ([facility]) eos % 0.8 % 0.0-3.0 Eos % YUNG ([facility]) baso % 0.4 % 0.0-1.0 Baso % Y[place]G ([facility]) immature granulocyte % 0.3 % 0-3.0 Immature Gran ulocyte % YUNG ([facility]) nucleated red blood cell % 0.0 % 0-0 Nucleated Red Blood Cell % Y[place]G ([facility]) neutrophils # 5.6 10 1.5-8.5 Neutrophils # YUNG ( [facility]) lymph # 1.4 10 1.5-5.0 Below low normal Lymph # YUNG ( [facility]) mono # 0.5 10 0.0-0.8 [place] # YUNG ([facility]) eos # 0.1 10 0.0-0.5 Eos # YUNG ([facility]) baso # 0.0 10 0.0-0.2 Baso # YUNG ([facility]) ID Date Data Source [id number] 01/12/2021 11:34:00 AM EST [place] ([facility]) Name Value Range Interpretation Code Description Data Lnyette rce(s) Supporting Document(s) bedside glucose 118 mg/dL 80-115 Above high normal Bedside Gluco se Y[place] ([facility]) ID Date Data Source [id number] 01/12/2021 11:34:00 AM EST [place] ([facility]) Name Value Range Interpretation Code Description Data Lynette rce(s) Supporting Document(s) bedside glucose 118 mg/dL 80-115 Above high normal Bedside Gluco se [place] ([facility]) ID Date Data Source [id number] 01/12/2021 11:34:00 AM EST [place] ([facility]) Name Value Range Interpretation Code Description Data Lynette rce(s) Supporting Document(s) bedside glucose 118 mg/dL 80-115 Above high normal Bedside Gluco se [facility] ([facility]) ID Date Data Source [id number] 01/12/2021 06:38:00 AM EST [place] ([facility]) Name Value Range Interpretation Code Description Data Lynette rce(s) Supporting Document(s) bedside glucose 77 mg/dL 80-115 Below low normal Bedside Glucos e Y[place] ([facility]) ID Date Data Source [id number] 01/12/2021 06:38:00 AM EST [place] ([facility]) Name Value Range Interpretation Code Description Data Lynette rce(s) Supporting Document(s) bedside glucose 77 mg/dL 80-115 Below low normal Bedside Glucos e Y[place]G ([facility]) ID Date Data Source [id number] 01/12/2021 06:38:00 AM EST [place] ([facility]) Name Value Range Interpretation Code Description Data Lynette rce(s) Supporting Document(s) bedside glucose 77 mg/dL 80-115 Below low normal Bedside Glucos e Y[facility]G ([facility]) ID Date Data Source [id number] 01/12/2021 06:17:00 AM EST [place] ([facility]) Name Value Range Interpretation Code Description Data Lynette rce(s) Supporting Document(s) bedside glucose 69 mg/dL 80-115 Below low normal Bedside Glucos e Y[place] ([facility]) ID Date Data Source [id number] 01/12/2021 06:17:00 AM EST [place] ([facility]) Name Value Range Interpretation Code Description Data Lynette rce(s) Supporting Document(s) bedside glucose 69 mg/dL 80-115 Below low normal Bedside Glucos e [facility] ([facility]) ID Date Data Source [id number] 01/12/2021 06:17:00 AM EST [place] ([facility]) Name Value Range Interpretation Code Description Data Lynette rce(s) Supporting Document(s) bedside glucose 69 mg/dL 80-115 Below low normal Bedside Glucos e YUNG ([facility]) ID Date Data Source [id number] 01/11/2021 08:22:00 PM EST [place] ([facility]) Name Value Range Interpretation Code Description Data Lynette rce(s) Supporting Document(s) bedside glucose 169 mg/dL 80-115 Above high normal Bedside Gluco se Y[facility] ([facility]) ID Date Data Source [id number] 01/11/2021 08:22:00 PM EST [place] ([facility]) Name Value Range Interpretation Code Description Data Lynette rce(s) Supporting Document(s) bedside glucose 169 mg/dL 80-115 Above high normal Bedside Gluco se Y[place] ([facility]) ID Date Data Source [id number] 01/11/2021 08:22:00 PM EST [place] ([facility]) Name Value Range Interpretation Code Description Data Lynette rce(s) Supporting Document(s) bedside glucose 169 mg/dL 80-115 Above high normal Bedside Gluco se [facility] ([facility]) ID Date Data Source [id number] 01/11/2021 04:31:00 PM EST [place] ([facility] Clinics) Name Value Range Interpretation Code Description Data Lynette rce(s) Supporting Document(s) bedside glucose 158 mg/dL 80-115 Above high normal Bedside Gluco se [facility] ([facility]) ID Date Data Source [id number] 01/11/2021 04:31:00 PM EST [facility] ([facility]) Name Value Range Interpretation Code Description Data Lynette rce(s) Supporting Document(s) bedside glucose 158 mg/dL 80-115 Above high normal Bedside Gluco se [facility] ([facility]) ID Date Data Source [id number] 01/11/2021 04:31:00 PM EST [facility] ([facility]) Name Value Range Interpretation Code Description Data Lynette rce(s) Supporting Document(s) bedside glucose 158 mg/dL 80-115 Above high normal Bedside Gluco se [facility] ([facility]) ID Date Data Source [id number] 01/11/2021 11:29:00 AM EST [facility] ([facility]) Name Value Range Interpretation Code Description Data Lynette rce(s) Supporting Document(s) bedside glucose 202 mg/dL 80-115 Above high normal Bedside Gluco se [facility] ([facility]) ID Date Data Source [id number] 01/11/2021 11:29:00 AM EST [facility]) Name Value Range Interpretation Code Description Data Lynette rce(s) Supporting Document(s) bedside glucose 202 mg/dL 80-115 Above high normal Bedside Gluco se [facility] ([facility]) ID Date Data Source [id number] 01/11/2021 11:29:00 AM EST [facility] ([facility]) Name Value Range Interpretation Code Description Data Lynette rce(s) Supporting Document(s) bedside glucose 202 mg/dL 80-115 Above [facility] Date Data Source [id number] 01/11/2021 07:24:00 AM EST [facility] ([facility]) Name Value Range Interpretation Code Description Data Lynette rce(s) Supporting Document(s) white blood count 5.0 10 4.0-10.0 White Blood Count [facility] ([facility]) red blood count 3.68 10 4.00-5.40 Below low normal Red Blood Coun t [facility] ([facility]) hemoglobin 8.9 g/dL 12.0-15.5 Below low normal Hemoglobin [facility] ( [facility]) mean corpuscular volume 81.5 fL 80.0-96.0 Mean Corpusc ular Volume [facility] ([facility]) hematocrit 30.0 % 36.0-47.0 Below low normal Hematocrit [facility] ( [facility]) mean corpuscular hemoglobin 24.2 pg 27.0-33.0 Below low nor mal Mean Corpuscular Hemoglobin [facility] ([facility]) mean corpuscular HGB conc 29.7 g/dL 32.0-36.5 Below low chiqui l Mean Corpuscular HGB Conc [place] ([facility]) red cell distribution width 15.9 % 11.5-14.5 Above high no rmal Red Cell Distribution Width [place] ([facility]) platelet count, automated 330 10 150-450 Platelet C ount, Automated [place] ([facility]) neutrophils % 63.7 % 36.0-66.0 Neutrophils % [place] ( [facility]) lymph % 22.4 % 24.0-44.0 Below low normal Lymph % [place] ( [facility]) mono % 10.3 % 2.0-8.0 Above high normal [place] % [place] ([facility]) eos % 2.4 % 0.0-3.0 Eos % [facility] ([facility]) baso % 0.8 % 0.0-1.0 Baso % [place] ([facility]) immature granulocyte % 0.4 % 0-3.0 Immature Gran ulocyte % [facility] ([facility]) nucleated red blood cell % 0.0 % 0-0 Nucleated Red Blood Cell % [place] ([facility]) neutrophils # 3.2 10 1.5-8.5 Neutrophils # [facility] ( [facility]) lymph # 1.1 10 1.5-5.0 Below low normal Lymph # [place] ( [facility]) mono # 0.5 10 0.0-0.8 [place] # [facility] ([facility]) eos # 0.1 10 0.0-0.5 Eos # [facility] ([facility]) baso # 0.0 10 0.0-0.2 Baso # [facility] ([facility]) ID Date Data Source [id number] 01/11/2021 07:24:00 AM EST [facility] ([facility]) Name Value Range Interpretation Code Description Data Lynette rce(s) Supporting Document(s) white blood count 5.0 10 4.0-10.0 White Blood Count [facility] ([facility]) red blood count 3.68 10 4.00-5.40 Below low normal Red Blood Coun t [place] ([facility]) hemoglobin 8.9 g/dL 12.0-15.5 Below low normal Hemoglobin [place] ( [facility]) hematocrit 30.0 % 36.0-47.0 Below low normal Hematocrit [place] ( [facility]) mean corpuscular volume 81.5 fL 80.0-96.0 Mean Corpusc ular Volume [facility] ([facility]) mean corpuscular hemoglobin 24.2 pg 27.0-33.0 Below low nor mal Mean Corpuscular Hemoglobin [place] ([facility]) mean corpuscular HGB conc 29.7 g/dL 32.0-36.5 Below low chiqui l Mean Corpuscular HGB Conc [place] ([facility]) red cell distribution width 15.9 % 11.5-14.5 Above high no rmal Red Cell Distribution Width [facility] ([facility]) platelet count, automated 330 10 150-450 Platelet C ount, Automated [place] ([facility]) neutrophils % 63.7 % 36.0-66.0 Neutrophils % [place] ( [facility]) lymph % 22.4 % 24.0-44.0 Below low normal Lymph % [place] ( [facility]) eos % 2.4 % 0.0-3.0 Eos % [facility] ([facility]) mono % 10.3 % 2.0-8.0 Above high normal [place] % [facility] ([facility]) baso % 0.8 % 0.0-1.0 Baso % [facility] ([facility]) immature granulocyte % 0.4 % 0-3.0 Immature Gran ulocyte % [facility] ([facility]) nucleated red blood cell % 0.0 % 0-0 Nucleated Red Blood Cell % [facility] ([facility]) neutrophils # 3.2 10 1.5-8.5 Neutrophils # [place] ( [facility]) lymph # 1.1 10 1.5-5.0 Below low normal Lymph # [facility] ( [facility]) mono # 0.5 10 0.0-0.8 [place] # [facility] ([facility]) eos # 0.1 10 0.0-0.5 Eos # [facility] ([facility]) baso # 0.0 10 0.0-0.2 Baso # [facility] ([facility]) ID Date Data Source [id number] 01/11/2021 07:24:00 AM EST [place] ([facility]) Name Value Range Interpretation Code Description Data Lynette rce(s) Supporting Document(s) white blood count 5.0 10 4.0-10.0 White Blood Count [facility] ([facility]) red blood count 3.68 10 4.00-5.40 Below low normal Red Blood Coun t [place] ([facility]) hemoglobin 8.9 g/dL 12.0-15.5 Below low normal Hemoglobin [place] ( [facility]) hematocrit 30.0 % 36.0-47.0 Below low normal Hematocrit [place] ( [facility]) mean corpuscular volume 81.5 fL 80.0-96.0 Mean Corpusc ular Volume [facility] ([facility]) mean corpuscular hemoglobin 24.2 pg 27.0-33.0 Below low nor mal Mean Corpuscular Hemoglobin [facility] ([facility]) mean corpuscular HGB conc 29.7 g/dL 32.0-36.5 Below low chiqui l Mean Corpuscular HGB Conc [facility] ([facility]) red cell distribution width 15.9 % 11.5-14.5 Above high no rmal Red Cell Distribution Width [place] ([facility]) platelet count, automated 330 10 150-450 Platelet C ount, Automated [place] ([facility]) lymph % 22.4 % 24.0-44.0 Below low normal Lymph % [place] ( [facility]) neutrophils % 63.7 % 36.0-66.0 Neutrophils % [place] ( [facility]) mono % 10.3 % 2.0-8.0 Above high normal [place] % [place] ([facility]) eos % 2.4 % 0.0-3.0 Eos % [place] ([facility]) baso % 0.8 % 0.0-1.0 Baso % [place] ([facility]) immature granulocyte % 0.4 % 0-3.0 Immature Gran ulocyte % [place] ([facility]) nucleated red blood cell % 0.0 % 0-0 Nucleated Red Blood Cell % [place] ([facility]) lymph # 1.1 10 1.5-5.0 Below low normal Lymph # [place] ( [facility]) neutrophils # 3.2 10 1.5-8.5 Neutrophils # [place] ( [facility]) mono # 0.5 10 0.0-0.8 [place] # [place] ([facility]) eos # 0.1 10 0.0-0.5 Eos # [place] ([facility]) baso # 0.0 10 0.0-0.2 Baso # [place] ([facility]) ID Date Data Source [id number] 01/11/2021 07:14:00 AM EST [place] ([facility]) Name Value Range Interpretation Code Description Data Lynette rce(s) Supporting Document(s) C reactive protein quantitativ 0.81 mg/dL 0.00-0.30 Above high normal C Reactive Protein Quantitativ [place] ([facility]) ID Date Data Source [id number] 01/11/2021 07:14:00 AM EST [place] ([facility]) Name Value Range Interpretation Code Description Data Lynette rce(s) Supporting Document(s) glucose, fasting 216 mg/dL 70-100 Above high normal Glucose, Fas ting [place] ([facility]) blood urea nitrogen 10 mg/dL 7-18 Blood Urea Nitro gen [place] ([facility]) creatinine for GFR 0.76 mg/dL 0.55-1.30 Creatinine for GF R [place] ([facility]) glomerular filtration rate > 60.0 >45 [place] r Filtration Rate [place] ([facility]) sodium level 135 mEq/L 136-145 Below low normal [facility] potassium serum 4.2 mEq/L 3.5-5.1 Potassium [facility] chloride level 105 mEq/L 98-107 Chloride Level [place] ([facility]) carbon dioxide level 25 mEq/L 21-32 Carbon Dioxide Level [place] ([facility]) anion gap 5 mEq/L 8-16 Below low normal Anion Gap [place] ( [facility]) calcium level 8.3 mg/dL 8.8-10.2 Below low normal Calcium Level AT [facility]) AST/SGOT 6 U/L 7-37 Below low normal AST/SGOT [place] ( [facility]) ALT/SGPT 14 U/L 12-78 ALT/SGPT [place] ([facility]) alkaline phosphatase 76 U/L 45-117 Alkaline Phosph atase [place] ([facility]) bilirubin,total 0.3 mg/dL 0.2-1.0 Bilirubin,total [facility] ([facility]) total protein 6.2 gm/dL 6.4-8.2 Below low normal Total Protein AT [facility]) albumin 2.5 gm/dL 3.2-5.2 Below low normal Albumin [place] ( [facility]) albumin/globulin ratio 1.2-2.2 Below low normal Albumin /globulin Ratio [place] ([facility]) ID Date Data Source [id number] 01/11/2021 07:14:00 AM EST [place] ([facility]) Name Value Range Interpretation Code Description Data Lynette rce(s) Supporting Document(s) C reactive protein quantitativ 0.81 mg/dL 0.00-0.30 Above high normal C Reactive Protein Quantitativ [place] ([facility]) ID Date Data Source [id number] 01/11/2021 07:14:00 AM EST [place] ([facility]) Name Value Range Interpretation Code Description Data Lynette rce(s) Supporting Document(s) glucose, fasting 216 mg/dL 70-100 Above high normal Glucose, Fas ting [place] ([facility]) blood urea nitrogen 10 mg/dL 7-18 Blood Urea Nitro gen [place] ([facility]) creatinine for GFR 0.76 mg/dL 0.55-1.30 Creatinine for GF R [place] ([facility]) glomerular filtration rate > 60.0 >45 [place] Filtration Rate [place] ([facility]) sodium level 135 mEq/L 136-145 Below low normal [facility] potassium serum 4.2 mEq/L 3.5-5.1 Potassium [facility] chloride level 105 mEq/L 98-107 Chloride Level [place] ([facility]) carbon dioxide level 25 mEq/L 21-32 Carbon Dioxide Level [place] ([facility]) anion gap 5 mEq/L 8-16 Below low normal Anion Gap [place] ( [facility]) calcium level 8.3 mg/dL 8.8-10.2 Below low normal Calcium Level [facility] [place] ([facility]) AST/SGOT 6 U/L 7-37 Below low normal AST/SGOT [place] ( [facility]) ALT/SGPT 14 U/L 12-78 ALT/SGPT [place] ([facility]) alkaline phosphatase 76 U/L 45-117 Alkaline Phosph atase [facility] ([facility]) bilirubin,total 0.3 mg/dL 0.2-1.0 Bilirubin,total [facility] ([facility]) total protein 6.2 gm/dL 6.4-8.2 Below low normal Total Protein AT [facility] ([facility]) albumin 2.5 gm/dL 3.2-5.2 Below low normal Albumin [place] ( [facility]) albumin/globulin ratio 1.2-2.2 Below low normal Albumin /globulin Ratio [place] ([facility]) ID Date Data Source [id number] 01/11/2021 07:14:00 AM EST [place] ([facility]) Name Value Range Interpretation Code Description Data Lynette rce(s) Supporting Document(s) C reactive protein quantitativ 0.81 mg/dL 0.00-0.30 Above high normal C Reactive Protein Quantitativ [facility]) ID Date Data Source [id number] 01/11/2021 07:14:00 AM EST [place] ([facility]) Name Value Range Interpretation Code Description Data Lynette rce(s) Supporting Document(s) glucose, fasting 216 mg/dL 70-100 Above high normal Glucose, Fas ting [place] ([facility]) blood urea nitrogen 10 mg/dL 7-18 Blood Urea Nitro gen [place] ([facility]) creatinine for GFR 0.76 mg/dL 0.55-1.30 Creatinine for GF R [place] ([facility]) glomerular filtration rate > 60.0 >45 [place] r Filtration Rate [facility] ([facility]) sodium level 135 mEq/L 136-145 Below low normal Sodium Level [facility] ([facility]) potassium serum 4.2 mEq/L 3.5-5.1 Potassium Serum [facility] ([facility]) chloride level 105 mEq/L 98-107 Chloride Level [facility] ([facility]) carbon dioxide level 25 mEq/L 21-32 Carbon Dioxide Level [place] ([facility]) anion gap 5 mEq/L 8-16 Below low normal Anion Gap [place] ( [facility]) calcium level 8.3 mg/dL 8.8-10.2 Below low normal Calcium Level AT [facility] ([facility]) AST/SGOT 6 U/L 7-37 Below low normal AST/SGOT [place] ( [facility]) ALT/SGPT 14 U/L 12-78 ALT/SGPT [facility] ([facility]) alkaline phosphatase 76 U/L 45-117 Alkaline Phosph atase [place] ([facility]) bilirubin,total 0.3 mg/dL 0.2-1.0 Bilirubin,total [facility] ([facility]) total protein 6.2 gm/dL 6.4-8.2 Below low normal Total Protein AT [facility] ([facility]) albumin 2.5 gm/dL 3.2-5.2 Below low normal Albumin [place] ( [facility]) albumin/globulin ratio 1.2-2.2 Below low normal Albumin /globulin Ratio [place] ([facility]) ID Date Data Source [id number] 01/11/2021 06:53:00 AM EST [place] ([facility]) Name Value Range Interpretation Code Description Data Lynette rce(s) Supporting Document(s) bedside glucose 200 mg/dL 80-115 Above high normal Bedside Gluco se [place] ([facility]) ID Date Data Source [id number] 01/11/2021 06:53:00 AM EST [place] ([facility]) Name Value Range Interpretation Code Description Data Lynette rce(s) Supporting Document(s) bedside glucose 200 mg/dL 80-115 Above high normal Bedside Gluco se [place] ([facility]) ID Date Data Source [id number] 01/11/2021 06:53[facility] Name Value Range Interpretation Code Description Data Lynette rce(s) Supporting Document(s) bedside glucose 200 mg/dL 80-115 Above high normal Bedside Gluco se [facility] ([facility]) ID Date Data Source [id number] 01/10/2021 08:46:00 PM EST [facility] ([facility]) Name Value Range Interpretation Code Description Data Lynette rce(s) Supporting Document(s) bedside glucose 181 mg/dL 80-115 Above high normal Bedside Gluco se [place] ([facility]) ID Date Data Source [id number] 01/10/2021 08:46:00 PM EST [place] ([facility]) Name Value Range Interpretation Code Description Data Lynette rce(s) Supporting Document(s) bedside glucose 181 mg/dL 80-115 Above high normal Bedside Gluco se [facility] ([facility]) ID Date Data Source [id number] 01/10/2021 08:46:00 PM EST [facility] ([facility]) Name Value Range Interpretation Code Description Data Lynette rce(s) Supporting Document(s) bedside glucose 181 mg/dL 80-115 Above high normal Bedside Gluco se [facility] ([facility]) ID Date Data Source [id number] 01/10/2021 05:00:00 PM EST [place] ([facility]) Name Value Range Interpretation Code Description Data Lynette rce(s) Supporting Document(s) bedside glucose 192 mg/dL 80-115 Above high normal Bedside Gluco se [place] ([facility]) ID Date Data Source [id number] 01/10/2021 05:00:00 PM EST [facility] ([facility]) Name Value Range Interpretation Code Description Data Lynette rce(s) Supporting Document(s) bedside glucose 192 mg/dL 80-115 Above high normal Bedside Gluco se [facility] ([facility]) ID Date Data Source [id number] 01/10/2021 05:00:00 PM EST [facility] ([facility]) Name Value Range Interpretation Code Description Data Lynette rce(s) Supporting Document(s) bedside glucose 192 mg/dL 80-115 Above high normal Bedside Gluco se [facility] ([facility]) ID Date Data Source [id number] 01/10/2021 11:37:00 AM EST [place] ([facility]) Name Value Range Interpretation Code Description Data Lynette rce(s) Supporting Document(s) bedside glucose 199 mg/dL 80-115 Above high normal Bedside Gluco se [facility] ([facility]) ID Date Data Source [id number] 01/10/2021 11:37:00 AM EST [place] ([facility]) Name Value Range Interpretation Code Description Data Lynette rce(s) Supporting Document(s) bedside glucose 199 mg/dL 80-115 Above high normal Bedside Gluco se [place] ([facility]) ID Date Data Source [id number] 01/10/2021 11:37:00 AM EST [place] ([facility]) Name Value Range Interpretation Code Description Data Lynette rce(s) Supporting Document(s) bedside glucose 199 mg/dL 80-115 Above high normal Bedside Gluco se [place] ([facility]) ID Date Data Source [id number] 01/10/2021 05:04:00 AM EST [place] ([facility]) Name Value Range Interpretation Code Description Data Lynette rce(s) Supporting Document(s) bedside glucose 168 mg/dL 80-115 Above high normal Bedside Gluco se [place] ([facility]) ID Date Data Source [id number] 01/10/2021 05:04:00 AM EST [place] ([facility]) Name Value Range Interpretation Code Description Data Lynette rce(s) Supporting Document(s) bedside glucose 168 mg/dL 80-115 Above high normal Bedside Gluco se [place] ([facility]) ID Date Data Source [id number] 01/10/2021 05:04:00 AM EST [place] ([facility]) Name Value Range Interpretation Code Description Data Lynette rce(s) Supporting Document(s) bedside glucose 168 mg/dL 80-115 Above high normal Bedside Gluco se [place] ([facility]) ID Date Data Source [id number] 01/09/2021 08:17:00 PM EST [place] ([facility]) Name Value Range Interpretation Code Description Data Lynette rce(s) Supporting Document(s) bedside glucose 145 mg/dL 80-115 Above high normal Bedside Gluco se [place] ([facility]) ID Date Data Source [id number] 01/09/2021 08:17:00 PM EST [place] ([facility]) Name Value Range Interpretation Code Description Data Lynette rce(s) Supporting Document(s) bedside glucose 145 mg/dL 80-115 Above high normal Bedside Gluco se [place] ([facility]) ID Date Data Source [id number] 01/09/2021 08:17:00 PM EST [place] ([facility]) Name Value Range Interpretation Code Description Data Lynette rce(s) Supporting Document(s) bedside glucose 145 mg/dL 80-115 Above high normal Bedside Gluco se [place] ([facility]) ID Date Data Source [id number] 01/09/2021 04:45:00 PM EST [place] ([facility]) Name Value Range Interpretation Code Description Data Lynette rce(s) Supporting Document(s) bedside glucose 203 mg/dL 80-115 Above high normal Bedside Gluco se [place] ([facility]) ID Date Data Source [id number] 01/09/2021 04:45:00 PM EST [place] ([facility]) Name Value Range Interpretation Code Description Data Lynette rce(s) Supporting Document(s) bedside glucose 203 mg/dL 80-115 Above high normal Bedside Gluco se [place] ([facility]) ID Date Data Source [id number] 01/09/2021 04:45:00 PM EST [place] ([facility]) Name Value Range Interpretation Code Description Data Lynette rce(s) Supporting Document(s) bedside glucose 203 mg/dL 80-115 Above high normal Bedside Gluco se [place] ([facility]) ID Date Data Source [id number] 01/09/2021 11:33:00 AM EST [place] ([facility]) Name Value Range Interpretation Code Description Data Lynette rce(s) Supporting Document(s) bedside glucose 132 mg/dL 80-115 Above high normal Bedside Gluco se [place] ([facility]) ID Date Data Source [id number] 01/09/2021 11:33:00 AM EST [place] ([facility]) Name Value Range Interpretation Code Description Data Lynette rce(s) Supporting Document(s) bedside glucose 132 mg/dL 80-115 Above high normal Bedside Gluco se [place] ([facility]) ID Date Data Source [id number] 01/09/2021 11:33:00 AM EST [place] ([facility]) Name Value Range Interpretation Code Description Data Lynette rce(s) Supporting Document(s) bedside glucose 132 mg/dL 80-115 Above high normal Bedside Gluco se [place] ([facility]) ID Date Data Source [id number] 01/09/2021 06:09:00 AM EST [place] ([facility]) Name Value Range Interpretation Code Description Data Lynette rce(s) Supporting Document(s) bedside glucose 103 mg/dL 80-115 Bedside Glucose ATHTania VERA [facility]) ID Date Data Source [id number] 01/09/2021 06:09:00 AM EST [place] ([facility]) Name Value Range Interpretation Code Description Data Lynette rce(s) Supporting Document(s) bedside glucose 103 mg/dL 80-115 Bedside Glucose ATHTania VERA ([facility]) ID Date Data Source [id number] 01/09/2021 06:09:00 AM EST [place] ([facility]) Name Value Range Interpretation Code Description Data Lynette rce(s) Supporting Document(s) bedside glucose 103 mg/dL 80-115 Bedside Glucose ATHTania VERA ([facility]) ID Date Data Source [id number] 01/08/2021 07:49:00 PM EST [place] ([facility]) Name Value Range Interpretation Code Description Data Lynette rce(s) Supporting Document(s) bedside glucose 185 mg/dL 80-115 Above high normal Bedside Gluco se [place] ([facility]) ID Date Data Source [id number] 01/08/2021 07:49:00 PM EST [place] ([facility]) Name Value Range Interpretation Code Description Data Lynette rce(s) Supporting Document(s) bedside glucose 185 mg/dL 80-115 Above high normal Bedside Gluco se [place] ([facility]) ID Date Data Source [id number] 01/08/2021 07:49:00 PM EST [place] ([facility]) Name Value Range Interpretation Code Description Data Lynette rce(s) Supporting Document(s) bedside glucose 185 mg/dL 80-115 Above high normal Bedside Gluco se [place] ([facility]) ID Date Data Source [id number] 01/08/2021 04:25:00 PM EST [place] ([facility]) Name Value Range Interpretation Code Description Data Lynette rce(s) Supporting Document(s) bedside glucose 175 mg/dL 80-115 Above high normal Bedside Gluco se [place] ([facility]) ID Date Data Source [id number] 01/08/2021 04:25:00 PM EST [place] ([facility]) Name Value Range Interpretation Code Description Data Lynette rce(s) Supporting Document(s) bedside glucose 175 mg/dL 80-115 Above high normal Bedside Gluco se [place] ([facility]) ID Date Data Source [id number] 01/08/2021 04:25:00 PM EST [place] ([facility]) Name Value Range Interpretation Code Description Data Lynette rce(s) Supporting Document(s) bedside glucose 175 mg/dL 80-115 Above high normal Bedside Gluco se [place] ([facility]) ID Date Data Source [id number] 01/08/2021 11:59:00 AM EST [place]UG[place] ([facility]) Name Value Range Interpretation Code Description Data Lynette rce(s) Supporting Document(s) bedside glucose 232 mg/dL 80-115 Above high normal Bedside Gluco se [place] ([facility]) ID Date Data Source [id number] 01/08/2021 11:59:00 AM EST [place] ([facility]) Name Value Range Interpretation Code Description Data Lynette rce(s) Supporting Document(s) bedside glucose 232 mg/dL 80-115 Above high normal Bedside Gluco se [place] ([facility]) ID Date Data Source [id number] 01/08/2021 11:59:00 AM EST [place] ([facility]) Name Value Range Interpretation Code Description Data Lynette rce(s) Supporting Document(s) bedside glucose 232 mg/dL 80-115 Above high [facility] Data Source [id number] 01/08/2021 06:44:00 AM EST [place] ([facility]) Name Value Range Interpretation Code Description Data Lynette rce(s) Supporting Document(s) bedside glucose 184 mg/dL 80-115 Above high normal Bedside Gluco se [place] ([facility]) ID Date Data Source [id number] 01/08/2021 06:44:00 AM EST [place] ([facility]) Name Value Range Interpretation Code Description Data Lynette rce(s) Supporting Document(s) bedside glucose 184 mg/dL 80-115 Above high normal Bedside Gluco se [place] ([facility]) ID Date Data Source [id number] 01/08/2021 06:44:00 AM EST [place] ([facility]) Name Value Range Interpretation Code Description Data Lynette rce(s) Supporting Document(s) bedside glucose 184 mg/dL 80-115 Above high normal Bedside Gluco se [place] ([facility]) ID Date Data Source [id number] 01/07/2021 08:17:00 PM EST [place] ([facility]) Name Value Range Interpretation Code Description Data Lynette rce(s) Supporting Document(s) bedside glucose 176 mg/dL 80-115 Above high normal Bedside Gluco se [place] ([facility]) ID Date Data Source [id number] 01/07/2021 08:17:00 PM EST [place] ([facility]) Name Value Range Interpretation Code Description Data Lynette rce(s) Supporting Document(s) bedside glucose 176 mg/dL 80-115 Above high normal Bedside Gluco se [place] ([facility]) ID Date Data Source [id number] 01/07/2021 08:17:00 PM EST [place] ([facility]) Name Value Range Interpretation Code Description Data Lynette rce(s) Supporting Document(s) bedside glucose 176 mg/dL 80-115 Above high normal Bedside Gluco se [place] ([facility]) ID Date Data Source [id number] 01/07/2021 05:03:00 PM EST [place] ([facility]) Name Value Range Interpretation Code Description Data Lynette rce(s) Supporting Document(s) bedside glucose 168 mg/dL 80-115 Above high normal Bedside Gluco se [place] ([facility]) ID Date Data Source [id number] 01/07/2021 05:03:00 PM EST [place] ([facility]) Name Value Range Interpretation Code Description Data Lynette rce(s) Supporting Document(s) bedside glucose 168 mg/dL 80-115 Above high normal Bedside Gluco se [place] ([facility]) ID Date Data Source [id number] 01/07/2021 05:03:00 PM EST [place] ([facility]) Name Value Range Interpretation Code Description Data Lynette rce(s) Supporting Document(s) bedside glucose 168 mg/dL 80-115 Above high normal Bedside Gluco se [place] ([facility]) ID Date Data Source [id number] 01/07/2021 11:36:00 AM EST [place] ([facility]) Name Value Range Interpretation Code Description Data Lynette rce(s) Supporting Document(s) bedside glucose 154 mg/dL 80-115 Above high normal Bedside Gluco se [place] ([facility]) ID Date Data Source [id number] 01/07/2021 11:36:00 AM EST [place] ([facility]) Name Value Range Interpretation Code Description Data Lynette rce(s) Supporting Document(s) bedside glucose 154 mg/dL 80-115 Above high normal Bedside Gluco se [place] ([facility]) ID Date Data Source [id number] 01/07/2021 11:36:00 AM EST [place] ([facility]) Name Value Range Interpretation Code Description Data Lynette rce(s) Supporting Document(s) bedside glucose 154 mg/dL 80-115 Above high normal Bedside Gluco se [place] ([facility]) ID Date Data Source [id number] 01/07/2021 07:40:00 AM EST [place] ([facility]) Name Value Range Interpretation Code Description Data Lynette rce(s) Supporting Document(s) bedside glucose 65 mg/dL 80-115 Below low normal Bedside Glucos e [place] ([facility]) ID Date Data Source [id number] 01/07/2021 07:40:00 AM EST [place] ([facility]) Name Value Range Interpretation Code Description Data Lynette rce(s) Supporting Document(s) bedside glucose 65 mg/dL 80-115 Below low normal Bedside Glucos e [place] ([facility]) ID Date Data Source [id number] 01/07/2021 07:40:00 AM EST [place] ([facility]) Name Value Range Interpretation Code Description Data Lynette rce(s) Supporting Document(s) bedside glucose 65 mg/dL 80-115 Below low normal Bedside Glucos e [place] ([facility]) ID Date Data Source [id number] 01/06/2021 08:47:00 PM EST [place] ([facility]) Name Value Range Interpretation Code Description Data Lynette rce(s) Supporting Document(s) bedside glucose 222 mg/dL 80-115 Above high normal Bedside Gluco se [place] ([facility]) ID Date Data Source [id number] 01/06/2021 08:47:00 PM EST [place] ([facility]) Name Value Range Interpretation Code Description Data Lynette rce(s) Supporting Document(s) bedside glucose 222 mg/dL 80-115 Above high normal Bedside Gluco se [place] ([facility]) ID Date Data Source [id number] 01/06/2021 08:47:00 PM EST [place] ([facility]) Name Value Range Interpretation Code Description Data Lynette rce(s) Supporting Document(s) bedside glucose 222 mg/dL 80-115 Above high normal Bedside Gluco se [place] ([facility]) ID Date Data Source [id number] 01/06/2021 04:43:00 PM EST [place] ([facility]) Name Value Range Interpretation Code Description Data Lynette rce(s) Supporting Document(s) bedside glucose 123 mg/dL 80-115 Above high normal Bedside Gluco se [place] ([facility]) ID Date Data Source [id number] 01/06/2021 04:43:00 PM EST [place] ([facility]) Name Value Range Interpretation Code Description Data Lynette rce(s) Supporting Document(s) bedside glucose 123 mg/dL 80-115 Above high normal Bedside Gluco se [place] ([facility]) ID Date Data Source [id number] 01/06/2021 04:43:00 PM EST [place] ([facility]) Name Value Range Interpretation Code Description Data Lynette rce(s) Supporting Document(s) bedside glucose 123 mg/dL 80-115 Above high normal Bedside Gluco se [place] ([facility]) ID Date Data Source [id number] 01/06/2021 11:38:00 AM EST [place] ([facility]) Name Value Range Interpretation Code Description Data Lynette rce(s) Supporting Document(s) bedside glucose 183 mg/dL 80-115 Above high [facility] Date Data Source [id number] 01/06/2021 11:38:00 AM EST [place] ([facility]) Name Value Range Interpretation Code Description Data Lynette rce(s) Supporting Document(s) bedside glucose 183 mg/dL 80-115 Above high normal Bedside Gluco se [place] ([facility]) ID Date Data Source [id number] 01/06/2021 11:38:00 AM EST [place] ([facility]) Name Value Range Interpretation Code Description Data Lynette rce(s) Supporting Document(s) bedside glucose 183 mg/dL 80-115 Above high normal Bedside Gluco se [place] ([facility]) ID Date Data Source [id number] 01/06/2021 06:06:00 AM EST [place] ([facility]) Name Value Range Interpretation Code Description Data Lynette rce(s) Supporting Document(s) bedside glucose 174 mg/dL 80-115 Above high normal Bedside Gluco se [place] ([facility]) ID Date Data Source [id number] 01/06/2021 06:06:00 AM EST [place] ([facility]) Name Value Range Interpretation Code Description Data Lynette rce(s) Supporting Document(s) bedside glucose 174 mg/dL 80-115 Above high normal Bedside Gluco se [facility] ([facility]) ID Date Data Source [id number] 01/06/2021 06:06:00 AM EST [place] ([facility]) Name Value Range Interpretation Code Description Data Lynette rce(s) Supporting Document(s) bedside glucose 174 mg/dL 80-115 Above high normal Bedside Gluco se [facility] ([facility]) ID Date Data Source [id number] 01/06/2021 05:34:00 AM EST Y[place]G [facility]) Name Value Range Interpretation Code Description Data Lynette rce(s) Supporting Document(s) glucose, fasting 189 mg/dL 70-100 Above high normal Glucose, Fas ting [place] ([facility]) blood urea nitrogen 11 mg/dL 7-18 Blood Urea Nitro gen [place] ([facility]) creatinine for GFR 0.95 mg/dL 0.55-1.30 Creatinine for GF R [place] ([facility]) glomerular filtration rate > 60.0 >45 Glomerula r Filtration Rate [place] ([facility]) sodium level 136 mEq/L 136-145 Sodium Level Y[facility]G (No [facility]) potassium serum 4.3 mEq/L 3.5-5.1 Potassium Serum ATHE NA ([facility]) chloride level 102 mEq/L 98-107 Chloride Level [place] ([facility]) carbon dioxide level 28 mEq/L 21-32 Carbon Dioxide Level [place] ([facility]) anion gap 6 mEq/L 8-16 Below low normal Anion Gap [place] ( [facility]) calcium level 8.8 mg/dL 8.8-10.2 Calcium Level [place] ( [facility]) ID Date Data Source [id number] 01/06/2021 05:34:00 AM EST [place] ([facility]) Name Value Range Interpretation Code Description Data Lynette rce(s) Supporting Document(s) white blood count 6.4 10 4.0-10.0 White Blood Count [place] ([facility]) red blood count 3.50 10 4.00-5.40 Below low normal Red Blood Coun t [place] ([facility]) hemoglobin 8.3 g/dL 12.0-15.5 Below low normal Hemoglobin [place] ( [facility]) hematocrit 28.4 % 36.0-47.0 Below low normal Hematocrit [place] ( [facility]) mean corpuscular volume 81.1 fL 80.0-96.0 Mean Corpusc ular Volume [place] ([facility]) mean corpuscular hemoglobin 23.7 pg 27.0-33.0 Below low nor mal Mean Corpuscular Hemoglobin [place] ([facility]) mean corpuscular HGB conc 29.2 g/dL 32.0-36.5 Below low chiqui l Mean Corpuscular HGB Conc [place] ([facility]) red cell distribution width 14.9 % 11.5-14.5 Above high no rmal Red Cell Distribution Width [place] ([facility]) platelet count, automated 414 10 150-450 Platelet C ount, Automated [place] ([facility]) nucleated red blood cell % 0.0 % 0-0 Nucleated Red Blood Cell % [place] ([facility]) ID Date Data Source [id number] 01/06/2021 05:34:00 AM EST [place] ([facility]) Name Value Range Interpretation Code Description Data Lynette rce(s) Supporting Document(s) glucose, fasting 189 mg/dL 70-100 Above high normal Glucose, Fas ting [place] ([facility]) blood urea nitrogen 11 mg/dL 7-18 Blood Urea Nitro gen [place] ([facility]) creatinine for GFR 0.95 mg/dL 0.55-1.30 Creatinine for GF R [place] ([facility]) glomerular filtration rate > 60.0 >45 Glomerula r Filtration Rate [place] ([facility]) sodium level 136 mEq/L 136-145 Sodium Level [place] (No [facility]) chloride level 102 mEq/L 98-107 Chloride Level [place] ([facility]) potassium serum 4.3 mEq/L 3.5-5.1 Potassium Serum ATH NA ([facility]) carbon dioxide level 28 mEq/L 21-32 Carbon Dioxide Level [place] ([facility]) anion gap 6 mEq/L 8-16 Below low normal Anion Gap [place] ( [facility]) calcium level 8.8 mg/dL 8.8-10.2 Calcium Level [place] ( [facility]) ID Date Data Source [id number] 01/06/2021 05:34:00 AM EST [place] ([facility]) Name Value Range Interpretation Code Description Data Lynette rce(s) Supporting Document(s) white blood count 6.4 10 4.0-10.0 White Blood Count [place] ([facility]) red blood count 3.50 10 4.00-5.40 Below low normal Red Blood Coun t [place] ([facility]) hemoglobin 8.3 g/dL 12.0-15.5 Below low normal Hemoglobin [place] ( [facility]) hematocrit 28.4 % 36.0-47.0 Below low normal Hematocrit [place] ( [facility]) mean corpuscular volume 81.1 fL 80.0-96.0 Mean Corpusc ular Volume [place] ([facility]) mean corpuscular hemoglobin 23.7 pg 27.0-33.0 Below low nor mal Mean Corpuscular Hemoglobin [place] ([facility]) red cell distribution width 14.9 % 11.5-14.5 Above high no rmal Red Cell Distribution Width [place] ([facility]) mean corpuscular HGB conc 29.2 g/dL 32.0-36.5 Below low chiqui l Mean Corpuscular HGB Conc [place] ([facility]) platelet count, automated 414 10 150-450 Platelet C ount, Automated [place] ([facility]) nucleated red blood cell % 0.0 % 0-0 Nucleated Red Blood Cell % [place] ([facility]) ID Date Data Source [id number] 01/06/2021 05:34:00 AM EST [place] ([facility]) Name Value Range Interpretation Code Description Data Lynette rce(s) Supporting Document(s) glucose, fasting 189 mg/dL 70-100 Above high normal Glucose, Fas ting [place] ([facility]) blood urea nitrogen 11 mg/dL 7-18 Blood Urea Nitro gen [place] ([facility]) creatinine for GFR 0.95 mg/dL 0.55-1.30 Creatinine for GF R [place] ([facility]) glomerular filtration rate > 60.0 >45 Glomerula r Filtration Rate [place] ([facility]) sodium level 136 mEq/L 136-145 Sodium Level [place] (No [facility]) potassium serum 4.3 mEq/L 3.5-5.1 Potassium Serum ATHE NA ([facility]) chloride level 102 mEq/L 98-107 Chloride Level [place] ([facility]) carbon dioxide level 28 mEq/L 21-32 Carbon Dioxide Level [place] ([facility]) calcium level 8.8 mg/dL 8.8-10.2 Calcium Level [place] ( [facility]) anion gap 6 mEq/L 8-16 Below low normal Anion Gap [place] ( [facility]) ID Date Data Source [id number] 01/06/2021 05:34:00 AM EST [place] ([facility]) Name Value Range Interpretation Code Description Data Lynette rce(s) Supporting Document(s) white blood count 6.4 10 4.0-10.0 White Blood Count [place] ([facility]) hemoglobin 8.3 g/dL 12.0-15.5 Below low normal Hemoglobin [place] ( [facility]) red blood count 3.50 10 4.00-5.40 Below low normal Red Blood Coun t [place] ([facility]) hematocrit 28.4 % 36.0-47.0 Below low normal Hematocrit [place] ( [facility]) mean corpuscular hemoglobin 23.7 pg 27.0-33.0 Below low nor mal Mean Corpuscular Hemoglobin [place] ([facility]) mean corpuscular volume 81.1 fL 80.0-96.0 Mean Corpusc ular Volume [place] ([facility]) mean corpuscular HGB conc 29.2 g/dL 32.0-36.5 Below low chiqui l Mean Corpuscular HGB Conc [place] ([facility]) red cell distribution width 14.9 % 11.5-14.5 Above high no rmal Red Cell Distribution Width [place] ([facility]) platelet count, automated 414 10 150-450 Platelet C ount, Automated [place] ([facility]) nucleated red blood cell % 0.0 % 0-0 Nucleated Red Blood Cell % [place] ([facility]) ID Date Data Source [id number] 01/05/2021 09:01:00 PM EST [place] ([facility]) Name Value Range Interpretation Code Description Data Lynette rce(s) Supporting Document(s) bedside glucose 193 mg/dL 80-115 Above high normal Bedside Gluco se [place] ([facility]) ID Date Data Source [id number] 01/05/2021 09:01:00 PM EST [place] ([facility]) Name Value Range Interpretation Code Description Data Lynette rce(s) Supporting Document(s) bedside glucose 193 mg/dL 80-115 Above high normal Bedside Gluco se [place] ([facility]) ID Date Data Source [id number] 01/05/2021 09:01:00 PM EST [place] ([facility]) Name Value Range Interpretation Code Description Data Lynette rce(s) Supporting Document(s) bedside glucose 193 mg/dL 80-115 Above high normal Bedside Gluco se [place] ([facility]) ID Date Data Source [id number] 01/05/2021 04:41:00 PM EST [place] ([facility]) Name Value Range Interpretation Code Description Data Lynette rce(s) Supporting Document(s) bedside glucose 147 mg/dL 80-115 Above high normal Bedside Gluco se [place] ([facility]) ID Date Data Source [id number] 01/05/2021 04:41:00 PM EST [place] ([facility]) Name Value Range Interpretation Code Description Data Lynette rce(s) Supporting Document(s) bedside glucose 147 mg/dL 80-115 Above high normal Bedside Gluco se [place] ([facility]) ID Date Data Source [id number] 01/05/2021 04:41:00 PM EST [place] ([facility]) Name Value Range Interpretation Code Description Data Lynette rce(s) Supporting Document(s) bedside glucose 147 mg/dL 80-115 Above high normal Bedside Gluco se [place] ([facility]) ID Date Data Source [id number] 01/05/2021 12:07:00 PM EST [place] ([facility]) Name Value Range Interpretation Code Description Data Lynette rce(s) Supporting Document(s) bedside glucose 111 mg/dL 80-115 Bedside Glucose [place]ania [place] ([facility]) ID Date Data Source [id number] 01/05/2021 12:07:00 PM EST [place] ([facility]) Name Value Range Interpretation Code Description Data Lynette rce(s) Supporting Document(s) bedside glucose 111 mg/dL 80-115 Bedside Glucose [place] VERA ([facility]) ID Date Data Source [id number] 01/05/2021 12:07:00 PM EST [place]UN[place] ([facility]) Name Value Range Interpretation Code Description Data Lynette rce(s) Supporting Document(s) bedside glucose 111 mg/dL 80-115 Bedside Glucose ATHTania VERA ([facility]) ID Date Data Source [id number] 01/05/2021 06:16:00 AM EST YUNG ([facility]) Name Value Range Interpretation Code Description Data Lynette rce(s) Supporting Document(s) erythrocyte sedimentation rate 72 mm/HR 0-30 Above high normal Erythrocyte Sedimentation Rate YUNG ([facility]) ID Date Data Source [id number] 01/05/2021 06:16:00 AM EST Y[place]G ([facility]) Name Value Range Interpretation Code Description Data Lynette rce(s) Supporting Document(s) white blood count 7.3 10 4.0-10.0 White Blood Count [place] ([facility]) hemoglobin 8.5 g/dL 12.0-15.5 Below low normal Hemoglobin [place] ( [facility]) red blood count 3.57 10 4.00-5.40 Below low normal Red Blood Coun t [place] ([facility]) hematocrit 28.6 % 36.0-47.0 Below low normal Hematocrit [place] ( [facility]) mean corpuscular volume 80.1 fL 80.0-96.0 Mean Corpusc ular Volume [place] ([facility]) mean corpuscular hemoglobin 23.8 pg 27.0-33.0 Below low nor mal Mean Corpuscular Hemoglobin [place] ([facility]) mean corpuscular HGB conc 29.7 g/dL 32.0-36.5 Below low chiqui l Mean Corpuscular HGB Conc [place] ([facility]) platelet count, automated 450 10 150-450 Platelet C ount, Automated [place] ([facility]) red cell distribution width 14.6 % 11.5-14.5 Above high no rmal Red Cell Distribution Width [place] ([facility]) nucleated red blood cell % 0.0 % 0-0 Nucleated Red Blood Cell % [place] ([facility]) ID Date Data Source [id number] 01/05/2021 06:16:00 AM EST [place] ([facility]) Name Value Range Interpretation Code Description Data Lynette rce(s) Supporting Document(s) C reactive protein quantitativ 2.31 mg/dL 0.00-0.30 Above high normal C Reactive Protein Quantitativ [facility]) ID Date Data Source [id number] 01/05/2021 06:16:00 AM EST [place] ([facility]) Name Value Range Interpretation Code Description Data Lynette rce(s) Supporting Document(s) glucose, fasting 62 mg/dL 70-100 Below low normal Glucose, Fast ing [place] ([facility]) blood urea nitrogen 9 mg/dL 7-18 Blood Urea Nitro gen [place] ([facility]) creatinine for GFR 0.82 mg/dL 0.55-1.30 Creatinine for GF R [place] ([facility]) glomerular filtration rate > 60.0 >45 Glomerula r Filtration Rate [place] ([facility]) sodium level 136 mEq/L 136-145 Sodium Level [place] ([facility]) potassium serum 4.4 mEq/L 3.5-5.1 Potassium Serum ATHE NA ([facility]) carbon dioxide level 26 mEq/L 21-32 Carbon Dioxide Level [place] ([facility]) chloride level 102 mEq/L 98-107 Chloride Level [place] ([facility]) anion gap 8 mEq/L 8-16 Anion Gap [place] ([facility]) calcium level 8.6 mg/dL 8.8-10.2 Below low normal Calcium Level AT [place] [facility]) ID Date Data Source [id number] 01/05/2021 06:16:00 AM EST [place] ([facility]) Name Value Range Interpretation Code Description Data Lynette rce(s) Supporting Document(s) erythrocyte sedimentation rate 72 mm/HR 0-30 Above high normal Erythrocyte Sedimentation Rate [place] ([facility]) ID Date Data Source [id number] 01/05/2021 06:16:00 AM EST [place] ([facility]) Name Value Range Interpretation Code Description Data Lynette rce(s) Supporting Document(s) white blood count 7.3 10 4.0-10.0 White Blood Count [place] ([facility]) red blood count 3.57 10 4.00-5.40 Below low normal Red Blood Coun t [place] ([facility]) hemoglobin 8.5 g/dL 12.0-15.5 Below low normal Hemoglobin [place] ( [facility]) mean corpuscular volume 80.1 fL 80.0-96.0 Mean Corpusc ular Volume [place] ([facility]) hematocrit 28.6 % 36.0-47.0 Below low normal Hematocrit [place] ( [facility]) mean corpuscular hemoglobin 23.8 pg 27.0-33.0 Below low nor mal Mean Corpuscular Hemoglobin [place] ([facility]) mean corpuscular HGB conc 29.7 g/dL 32.0-36.5 Below low chiqui l Mean Corpuscular HGB Conc [place] ([facility]) red cell distribution width 14.6 % 11.5-14.5 Above high no rmal Red Cell Distribution Width [place] ([facility]) platelet count, automated 450 10 150-450 Platelet C ount, Automated [place] ([facility]) nucleated red blood cell % 0.0 % 0-0 Nucleated Red Blood Cell % [place] ([facility]) ID Date Data Source [id number] 01/05/2021 06:16:00 AM EST [facility]) Name Value Range Interpretation Code Description Data Lynette rce(s) Supporting Document(s) C reactive protein quantitativ 2.31 mg/dL 0.00-0.30 Above high normal C Reactive Protein Quantitativ [facility]) ID Date Data Source [id number] 01/05/2021 06:16:00 AM EST [place] ([facility]) Name Value Range Interpretation Code Description Data Lynette rce(s) Supporting Document(s) glucose, fasting 62 mg/dL 70-100 Below low normal Glucose, Fast ing [place] ([facility]) blood urea nitrogen 9 mg/dL 7-18 Blood Urea Nitro gen [facility]) creatinine for GFR 0.82 mg/dL 0.55-1.30 Creatinine for GF R [facility]) glomerular filtration rate > 60.0 >45 Glomerula r Filtration Rate [place] ([facility]) sodium level 136 mEq/L 136-145 Sodium Level [place] ([facility]) potassium serum 4.4 mEq/L 3.5-5.1 Potassium Serum ATH NA [facility]) chloride level 102 mEq/L 98-107 Chloride Level [place] ([facility]) carbon dioxide level 26 mEq/L 21-32 Carbon Dioxide Level [place] ([facility]) anion gap 8 mEq/L 8-16 Anion Gap [place] ([facility]) calcium level 8.6 mg/dL 8.8-10.2 Below low normal Calcium Level AT [place] ([facility]) ID Date Data Source [id number] 01/05/2021 06:16:00 AM EST [place] ([facility]) Name Value Range Interpretation Code Description Data Lynette rce(s) Supporting Document(s) erythrocyte sedimentation rate 72 mm/HR 0-30 Above high normal Erythrocyte Sedimentation Rate [place] ([facility]) ID Date Data Source [id number] 01/05/2021 06:16:00 AM EST [place] ([facility]) Name Value Range Interpretation Code Description Data Lynette rce(s) Supporting Document(s) white blood count 7.3 10 4.0-10.0 White Blood Count [place] ([facility]) hemoglobin 8.5 g/dL 12.0-15.5 Below low normal Hemoglobin [place] ( [facility]) red blood count 3.57 10 4.00-5.40 Below low normal Red Blood Coun t [place] ([facility]) hematocrit 28.6 % 36.0-47.0 Below low normal Hematocrit [place] ( [facility]) mean corpuscular hemoglobin 23.8 pg 27.0-33.0 Below low nor mal Mean Corpuscular Hemoglobin [place] ([facility]) mean corpuscular volume 80.1 fL 80.0-96.0 Mean Corpusc ular Volume [place] ([facility]) mean corpuscular HGB conc 29.7 g/dL 32.0-36.5 Below low chiqui l Mean Corpuscular HGB Conc [place] ([facility]) red cell distribution width 14.6 % 11.5-14.5 Above high no rmal Red Cell Distribution Width [place] ([facility]) platelet count, automated 450 10 150-450 Platelet C ount, Automated [place] ([facility]) nucleated red blood cell % 0.0 % 0-0 Nucleated Red Blood Cell % [place] ([facility]) ID Date Data Source [id number] 01/05/2021 06:16:00 AM EST [place] ([facility]) Name Value Range Interpretation Code Description Data Lynette rce(s) Supporting Document(s) C reactive protein quantitativ 2.31 mg/dL 0.00-0.30 Above high normal C Reactive Protein Quantitativ [place] ([facility]) ID Date Data Source [id number] 01/05/2021 06:16:00 AM EST [place] ([facility]) Name Value Range Interpretation Code Description Data Lynette rce(s) Supporting Document(s) glucose, fasting 62 mg/dL 70-100 Below low normal Glucose, Fast ing [place] ([facility]) blood urea nitrogen 9 mg/dL 7-18 Blood Urea Nitro gen [place] ([facility]) creatinine for GFR 0.82 mg/dL 0.55-1.30 Creatinine for GF R [place] ([facility]) sodium level 136 mEq/L 136-145 Sodium Level [place] ([facility]) glomerular filtration rate > 60.0 >45 Glomerula r Filtration Rate [place] ([facility]) potassium serum 4.4 mEq/L 3.5-5.1 Potassium Serum ATH NA ([facility]) chloride level 102 mEq/L 98-107 Chloride Level [place] ([facility]) anion gap 8 mEq/L 8-16 Anion Gap [place] ([facility]) carbon dioxide level 26 mEq/L 21-32 Carbon Dioxide Level [place] ([facility]) calcium level 8.6 mg/dL 8.8-10.2 Below low normal Calcium Level AT [place] ([facility]) ID Date Data Source [id number] 01/04/2021 08:42:00 PM EST [place] ([facility]) Name Value Range Interpretation Code Description Data Lynette rce(s) Supporting Document(s) bedside glucose 209 mg/dL 80-115 Above high normal Bedside Gluco se [facility]) ID Date Data Source [id number] 01/04/2021 08:42:00 PM EST [place] ([facility]) Name Value Range Interpretation Code Description Data Lynette rce(s) Supporting Document(s) bedside glucose 209 mg/dL 80-115 Above high normal Bedside Gluco se [place] ([facility]) ID Date Data Source [id number] 01/04/2021 08:42:00 PM EST [place] ([facility]) Name Value Range Interpretation Code Description Data Lynette rce(s) Supporting Document(s) bedside glucose 209 mg/dL 80-115 Above high normal Bedside Gluco se [place] ([facility]) ID Date Data Source [id number] 01/04/2021 04:39:00 PM EST [place] ([facility]) Name Value Range Interpretation Code Description Data Lynette rce(s) Supporting Document(s) bedside glucose 183 mg/dL 80-115 Above high normal Bedside Gluco se [place] ([facility]) ID Date Data Source [id number] 01/04/2021 04:39:00 PM EST [place] ([facility]) Name Value Range Interpretation Code Description Data Lynette rce(s) Supporting Document(s) bedside glucose 183 mg/dL 80-115 Above high normal Bedside Gluco se [place] ([facility]) ID Date Data Source [id number] 01/04/2021 04:39:00 PM EST [place] ([facility]) Name Value Range Interpretation Code Description Data Lynette rce(s) Supporting Document(s) bedside glucose 183 mg/dL 80-115 Above high normal Bedside Gluco se [place] ([facility]) ID Date Data Source [id number] 01/04/2021 11:28:00 AM EST [place] ([facility]) Name Value Range Interpretation Code Description Data Lynette rce(s) Supporting Document(s) bedside glucose 200 mg/dL 80-115 Above high normal Bedside Gluco se [place] ([facility]) ID Date Data Source [id number] 01/04/2021 11:28:00 AM EST [place] ([facility]) Name Value Range Interpretation Code Description Data Lynette rce(s) Supporting Document(s) bedside glucose 200 mg/dL 80-115 Above high normal Bedside Gluco se [place] ([facility]) ID Date Data Source [id number] 01/04/2021 11:28:00 AM EST [facility]) Name Value Range Interpretation Code Description Data Lynette rce(s) Supporting Document(s) bedside glucose 200 mg/dL 80-115 Above high normal Bedside Gluco se [place] ([facility]) ID Date Data Source [id number] 01/04/2021 10:07:00 AM EST [facility]) Name Value Range Interpretation Code Description Data Lynette rce(s) Supporting Document(s) vancomycin level trough 20.7 ug/mL 10.0-20.0 Above high normal Vancomycin Level Trough [facility]) ID Date Data Source [id number] 01/04/2021 10:07:00 AM EST [facility]) Name Value Range Interpretation Code Description Data Lynette rce(s) Supporting Document(s) vancomycin level trough 20.7 ug/mL 10.0-20.0 Above high normal Vancomycin Level Trough [facility]) ID Date Data Source [id number] 01/04/2021 10:07:00 AM EST [facility]) Name Value Range Interpretation Code Description Data Lynette rce(s) Supporting Document(s) vancomycin level trough 20.7 ug/mL 10.0-20.0 Above high normal Vancomycin Level Trough [facility]) ID Date Data Source [id number] 01/04/2021 05:43:00 AM EST [place] ([facility]) Name Value Range Interpretation Code Description Data Lynette rce(s) Supporting Document(s) magnesium level 1.5 mg/dL 1.8-2.4 Below low normal Magnesium Leve l [place] ([facility]) ID Date Data Source [id number] 01/04/2021 05:43:00 AM EST [place] ([facility]) Name Value Range Interpretation Code Description Data Lynette rce(s) Supporting Document(s) phosphorus level 3.0 mg/dL 2.5-4.9 Phosphorus Level AT [facility]) ID Date Data Source [id number] 01/04/2021 05:43:00 AM EST [place] ([facility]) Name Value Range Interpretation Code Description Data Lynette rce(s) Supporting Document(s) glucose, fasting 219 mg/dL 70-100 Above high normal Glucose, Fas ting [place] ([facility]) blood urea nitrogen 10 mg/dL 7-18 Blood Urea Nitro gen [place] ([facility]) creatinine for GFR 0.80 mg/dL 0.55-1.30 Creatinine for GF R [place] ([facility]) sodium level 134 mEq/L 136-145 Below low normal Sodium Level [place] ([facility]) glomerular filtration rate > 60.0 >45 Glomerula r Filtration Rate [place] ([facility]) potassium serum 4.6 mEq/L 3.5-5.1 Potassium Serum [place] ([facility]) carbon dioxide level 27 mEq/L 21-32 Carbon Dioxide Level [place] ([facility]) chloride level 100 mEq/L 98-107 Chloride Level [place] ([facility]) calcium level 8.5 mg/dL 8.8-10.2 Below low normal Calcium Level AT [facility]) anion gap 7 mEq/L 8-16 Below low normal Anion Gap [place] ( [facility]) AST/SGOT 4 U/L 7-37 Below low normal AST/SGOT [place] ( [facility]) alkaline phosphatase 84 U/L 45-117 Alkaline Phosph atase [place] ([facility]) ALT/SGPT 10 U/L 12-78 Below low normal ALT/SGPT [place] ( [facility]) bilirubin,total 0.3 mg/dL 0.2-1.0 Bilirubin,total ATHE NA ([facility]) total protein 6.0 gm/dL 6.4-8.2 Below low normal Total Protein AT [place] ([facility]) albumin 2.1 gm/dL 3.2-5.2 Below low normal Albumin [place] ( [facility]) albumin/globulin ratio 1.2-2.2 Below low normal Albumin /globulin Ratio [place] ([facility]) ID Date Data Source [id number] 01/04/2021 05:43:00 AM EST [place] ([facility]) Name Value Range Interpretation Code Description Data Lynette rce(s) Supporting Document(s) white blood count 6.8 10 4.0-10.0 White Blood Count [place] ([facility]) red blood count 3.44 10 4.00-5.40 Below low normal Red Blood Coun t [place] ([facility]) hemoglobin 8.2 g/dL 12.0-15.5 Below low normal Hemoglobin [place] ( [facility]) hematocrit 27.3 % 36.0-47.0 Below low normal Hematocrit [place] ( [facility]) mean corpuscular volume 79.4 fL 80.0-96.0 Below low normal Mean Corpuscular Volume [place] ([facility]) mean corpuscular hemoglobin 23.8 pg 27.0-33.0 Below low nor mal Mean Corpuscular Hemoglobin [place] ([facility]) mean corpuscular HGB conc 30.0 g/dL 32.0-36.5 Below low chiqui l Mean Corpuscular HGB Conc [place] ([facility]) red cell distribution width 14.4 % 11.5-14.5 Red Cell Distribution Width [place] ([facility]) nucleated red blood cell % 0.0 % 0-0 Nucleated Red Blood Cell % [place] ([facility]) platelet count, automated 411 10 150-450 Platelet C ount, Automated [place] ([facility]) ID Date Data Source [id number] 01/04/2021 05:43:00 AM EST [place] ([facility]) Name Value Range Interpretation Code Description Data Lynette rce(s) Supporting Document(s) magnesium level 1.5 mg/dL 1.8-2.4 Below low normal Magnesium Leve l [place] ([facility]) ID Date Data Source [id number] 01/04/2021 05:43:00 AM EST [place] ([facility]) Name Value Range Interpretation Code Description Data Lynette rce(s) Supporting Document(s) phosphorus level 3.0 mg/dL 2.5-4.9 Phosphorus Level AT [facility] ([facility]) ID Date Data Source [id number] 01/04/2021 05:43:00 AM EST [place] ([facility]) Name Value Range Interpretation Code Description Data Lynette rce(s) Supporting Document(s) glucose, fasting 219 mg/dL 70-100 Above high normal Glucose, Fas ting [place] ([facility]) creatinine for GFR 0.80 mg/dL 0.55-1.30 Creatinine for GF R [place] ([facility]) blood urea nitrogen 10 mg/dL 7-18 Blood Urea Nitro gen [place] ([facility]) glomerular filtration rate > 60.0 >45 Glomerula r Filtration Rate [place] ([facility]) sodium level 134 mEq/L 136-145 Below low normal Sodium Level ATHE NA ([facility]) potassium serum 4.6 mEq/L 3.5-5.1 Potassium Serum ATHE NA ([facility]) chloride level 100 mEq/L 98-107 Chloride Level [place] ([facility]) carbon dioxide level 27 mEq/L 21-32 Carbon Dioxide Level [place] ([facility]) anion gap 7 mEq/L 8-16 Below low normal Anion Gap [place] ( [facility]) calcium level 8.5 mg/dL 8.8-10.2 Below low normal Calcium Level AT [facility] ([facility]) AST/SGOT 4 U/L 7-37 Below low normal AST/SGOT [place] ( [facility]) ALT/SGPT 10 U/L 12-78 Below low normal ALT/SGPT [place] ( [facility]) alkaline phosphatase 84 U/L 45-117 Alkaline Phosph atase [place] ([facility]) bilirubin,total 0.3 mg/dL 0.2-1.0 Bilirubin,total AT[place] ([facility]) total protein 6.0 gm/dL 6.4-8.2 Below low normal Total Protein AT [facility] ([facility]) albumin 2.1 gm/dL 3.2-5.2 Below low normal Albumin [place] ( [facility]) albumin/globulin ratio 1.2-2.2 Below low normal Albumin /globulin Ratio [place] ([facility]) ID Date Data Source [id number] 01/04/2021 05:43:00 AM EST [place] ([facility]) Name Value Range Interpretation Code Description Data Lynette rce(s) Supporting Document(s) white blood count 6.8 10 4.0-10.0 White Blood Count [place] ([facility]) red blood count 3.44 10 4.00-5.40 Below low normal Red Blood Coun t [place] ([facility]) hemoglobin 8.2 g/dL 12.0-15.5 Below low normal Hemoglobin [place] ( [facility]) hematocrit 27.3 % 36.0-47.0 Below low normal Hematocrit [place] ( [facility]) mean corpuscular volume 79.4 fL 80.0-96.0 Below low normal Mean Corpuscular Volume [place] ([facility]) mean corpuscular hemoglobin 23.8 pg 27.0-33.0 Below low nor mal Mean Corpuscular Hemoglobin [place] ([facility]) mean corpuscular HGB conc 30.0 g/dL 32.0-36.5 Below low chiqui l Mean Corpuscular HGB Conc [place] ([facility]) red cell distribution width 14.4 % 11.5-14.5 Red Cell Distribution Width [place] ([facility]) platelet count, automated 411 10 150-450 Platelet C ount, Automated [place] ([facility]) nucleated red blood cell % 0.0 % 0-0 Nucleated Red Blood Cell % [place] ([facility]) ID Date Data Source [id number] 01/04/2021 05:43:00 AM EST [place] ([facility]) Name Value Range Interpretation Code Description Data Lynette rce(s) Supporting Document(s) magnesium level 1.5 mg/dL 1.8-2.4 Below low normal Magnesium Leve l [place] ([facility]) ID Date Data Source [id number] 01/04/2021 05:43:00 AM EST [place] ([facility]) Name Value Range Interpretation Code Description Data Lynette rce(s) Supporting Document(s) phosphorus level 3.0 mg/dL 2.5-4.9 Phosphorus Level AT [facility] ([facility]) ID Date Data Source [id number] 01/04/2021 05:43:00 AM EST [place] ([facility]) Name Value Range Interpretation Code Description Data Lynette rce(s) Supporting Document(s) glucose, fasting 219 mg/dL 70-100 Above high normal Glucose, Fas ting [place] ([place] [facility] creatinine for GFR 0.80 mg/dL 0.55-1.30 Creatinine for GF R [place] ([facility]) blood urea nitrogen 10 mg/dL 7-18 Blood Urea Nitro gen [place] ([facility]) sodium level 134 mEq/L 136-145 Below low normal Sodium Level [place] NA ([facility]) glomerular filtration rate > 60.0 >45 Glomerula r Filtration Rate [place] ([facility]) potassium serum 4.6 mEq/L 3.5-5.1 Potassium Serum [place] ([facility]) chloride level 100 mEq/L 98-107 Chloride Level [place] ([facility]) carbon dioxide level 27 mEq/L 21-32 Carbon Dioxide Level [place] ([facility]) calcium level 8.5 mg/dL 8.8-10.2 Below low normal Calcium Level AT [facility] ([facility]) anion gap 7 mEq/L 8-16 Below low normal Anion Gap [place] ( [facility]) AST/SGOT 4 U/L 7-37 Below low normal AST/SGOT [place] ( [facility]) alkaline phosphatase 84 U/L 45-117 Alkaline Phosph atase [place] ([facility]) ALT/SGPT 10 U/L 12-78 Below low normal ALT/SGPT [place] ( [facility]) bilirubin,total 0.3 mg/dL 0.2-1.0 Bilirubin,total [place] ([facility]) total protein 6.0 gm/dL 6.4-8.2 Below low normal Total Protein AT [facility] ([facility]) albumin 2.1 gm/dL 3.2-5.2 Below low normal Albumin [place] ( [facility]) albumin/globulin ratio 1.2-2.2 Below low normal Albumin /globulin Ratio [place] ([facility]) ID Date Data Source [id number] 01/04/2021 05:43:00 AM EST [place] ([facility]) Name Value Range Interpretation Code Description Data Lynette rce(s) Supporting Document(s) white blood count 6.8 10 4.0-10.0 White Blood Count [place] ([facility]) red blood count 3.44 10 4.00-5.40 Below low normal Red Blood Coun t [place] ([facility]) hematocrit 27.3 % 36.0-47.0 Below low normal Hematocrit [place] ( [facility]) hemoglobin 8.2 g/dL 12.0-15.5 Below low normal Hemoglobin [place] ( [facility]) mean corpuscular volume 79.4 fL 80.0-96.0 Below low normal Mean Corpuscular Volume [place] ([facility]) mean corpuscular hemoglobin 23.8 pg 27.0-33.0 Below low nor mal Mean Corpuscular Hemoglobin [place] ([facility]) mean corpuscular HGB conc 30.0 g/dL 32.0-36.5 Below low chiqui l Mean Corpuscular HGB Conc [place] ([facility]) platelet count, automated 411 10 150-450 Platelet C ount, Automated [place] ([facility]) red cell distribution width 14.4 % 11.5-14.5 Red Cell Distribution Width [place] ([facility]) nucleated red blood cell % 0.0 % 0-0 Nucleated Red Blood Cell % [place] ([facility]) ID Date Data Source [id number] 01/03/2021 08:17:00 PM EST [place] ([facility]) Name Value Range Interpretation Code Description Data Lynette rce(s) Supporting Document(s) bedside glucose 149 mg/dL 80-115 Above high normal Bedside Gluco se [place] ([facility]) ID Date Data Source [id number] 01/03/2021 08:17:00 PM EST [place] ([facility]) Name Value Range Interpretation Code Description Data Lynette rce(s) Supporting Document(s) bedside glucose 149 mg/dL 80-115 Above high normal Bedside Gluco se [place] ([facility]) ID Date Data Source [id number] 01/03/2021 08:17:00 PM EST [place] ([facility]) Name Value Range Interpretation Code Description Data Lynette rce(s) Supporting Document(s) bedside glucose 149 mg/dL 80-115 Above high normal Bedside Gluco se [place] ([facility]) ID Date Data Source [id number] 01/03/2021 04:41:00 PM EST [place] ([facility]) Name Value Range Interpretation Code Description Data Lynette rce(s) Supporting Document(s) bedside glucose 189 mg/dL 80-115 Above high normal Bedside Gluco se [place] ([facility]) ID Date Data Source [id number] 01/03/2021 04:41:00 PM EST [place] ([facility]) Name Value Range Interpretation Code Description Data Lynette rce(s) Supporting Document(s) bedside glucose 189 mg/dL 80-115 Above high normal Bedside Gluco se [place] ([facility]) ID Date Data Source [id number] 01/03/2021 04:41:00 PM EST [place] ([facility]) Name Value Range Interpretation Code Description Data Lynette rce(s) Supporting Document(s) bedside glucose 189 mg/dL 80-115 Above high normal Bedside Gluco se [place] ([facility]) ID Date Data Source [id number] 01/03/2021 11:14:00 AM EST [facility] [facility]) Name Value Range Interpretation Code Description Data Lynette rce(s) Supporting Document(s) bedside glucose 104 mg/dL 80-115 Bedside Glucose AT[facility] NA ([facility]) ID Date Data Source [id number] 01/03/2021 11:14:00 AM EST [place] ([facility]) Name Value Range Interpretation Code Description Data Lynette rce(s) Supporting Document(s) bedside glucose 104 mg/dL 80-115 Bedside Glucose AT[facility] NA ([facility]) ID Date Data Source [id number] 01/03/2021 11:14:00 AM EST [place] ([facility]) Name Value Range Interpretation Code Description Data Lynette rce(s) Supporting Document(s) bedside glucose 104 mg/dL 80-115 Bedside Glucose [place] NA ([facility]) ID Date Data Source [id number] 01/03/2021 10:28:00 AM EST [place] ([facility]) Name Value Range Interpretation Code Description Data Lynette rce(s) Supporting Document(s) vancomycin level trough 17.1 ug/mL 10.0-20.0 Vancomycin L evel Trough [place] ([facility]) ID Date Data Source [id number] 01/03/2021 10:28:00 AM EST [place] ([facility]) Name Value Range Interpretation Code Description Data Lynette rce(s) Supporting Document(s) vancomycin level trough 17.1 ug/mL 10.0-20.0 Vancomycin L evel Trough [place] ([facility]) ID Date Data Source [id number] 01/03/2021 10:28:00 AM EST [place] ([facility]) Name Value Range Interpretation Code Description Data Lynette rce(s) Supporting Document(s) vancomycin level trough 17.1 ug/mL 10.0-20.0 Vancomycin L evel Trough [place] ([facility]) ID Date Data Source [id number] 01/03/2021 09:00:00 AM EST [place] ([facility]) Name Value Range Interpretation Code Description Data Lynette rce(s) Supporting Document(s) ID Date Data Source [id number] 01/03/2021 09:00:00 AM EST [place] ([facility]) Name Value Range Interpretation Code Description Data Lynette rce(s) Supporting Document(s) ID Date Data Source [id number] 01/03/2021 09:00:00 AM EST [place] ([facility]) Name Value Range Interpretation Code Description Data Lynette rce(s) Supporting Document(s) ID Date Data Source [id number] 01/03/2021 09:00:00 AM EST [place] ([facility]) Name Value Range Interpretation Code Description Data Lynette rce(s) Supporting Document(s) ID Date Data Source [id number] 01/03/2021 09:00:00 AM EST [place] ([facility]) Name Value Range Interpretation Code Description Data Lynette rce(s) Supporting Document(s) ID Date Data Source [id number] 01/03/2021 09:00:00 AM EST [place] ([facility]) Name Value Range Interpretation Code Description Data Lynette rce(s) Supporting Document(s) ID Date Data Source [id number] 01/03/2021 09:00:00 AM EST [place] ([facility]) Name Value Range Interpretation Code Description Data Lynette rce(s) Supporting Document(s) ID Date Data Source [id number] 01/03/2021 09:00:00 AM EST [place] ([facility]) Name Value Range Interpretation Code Description Data Lynette rce(s) Supporting Document(s) ID Date Data Source [id number] 01/03/2021 09:00:00 AM EST [place] ([facility]) Name Value Range Interpretation Code Description Data Lynette rce(s) Supporting Document(s) ID Date Data Source [id number] 01/03/2021 09:00:00 AM EST [place] ([facility]) Name Value Range Interpretation Code Description Data Lynette rce(s) Supporting Document(s) ID Date Data Source [id number] 01/03/2021 09:00:00 AM EST [place] ([facility]) Name Value Range Interpretation Code Description Data Lynette rce(s) Supporting Document(s) ID Date Data Source [id number] 01/03/2021 09:00:00 AM EST [place] ([facility]) Name Value Range Interpretation Code Description Data Lynette rce(s) Supporting Document(s) ID Date Data Source [id number] 01/03/2021 09:00:00 AM EST [place] ([facility]) Name Value Range Interpretation Code Description Data Lynette rce(s) Supporting Document(s) ID Date Data Source [id number] 01/03/2021 09:00:00 AM EST [place] ([facility]) Name Value Range Interpretation Code Description Data Lynette rce(s) Supporting Document(s) ID Date Data Source [id number] 01/03/2021 09:00:00 AM EST [place] ([facility]) Name Value Range Interpretation Code Description Data Lynette rce(s) Supporting Document(s) ID Date Data Source [id number] 01/03/2021 09:00:00 AM EST [facility] ([facility]) Name Value Range Interpretation Code Description Data Lynette rce(s) Supporting Document(s) ID Date Data Source [id number] 01/03/2021 09:00:00 AM EST [place] ([facility]) Name Value Range Interpretation Code Description Data Lynette rce(s) Supporting Document(s) ID Date Data Source [id number] 01/03/2021 09:00:00 AM EST [place] ([facility]) Name Value Range Interpretation Code Description Data Lynette rce(s) Supporting Document(s) ID Date Data Source [id number] 01/03/2021 09:00:00 AM EST [place] ([facility]) Name Value Range Interpretation Code Description Data Lynette rce(s) Supporting Document(s) ID Date Data Source [id number] 01/03/2021 09:00:00 AM EST [place] ([facility]) Name Value Range Interpretation Code Description Data Lynette rce(s) Supporting Document(s) ID Date Data Source [id number] 01/03/2021 09:00:00 AM EST [place] ([facility]) Name Value Range Interpretation Code Description Data Lynette rce(s) Supporting Document(s) ID Date Data Source [id number] 01/03/2021 05:32:00 AM EST [place] ([facility]) Name Value Range Interpretation Code Description Data Lynette rce(s) Supporting Document(s) glucose, fasting 97 mg/dL 70-100 Glucose, Fasting AT [facility]) blood urea nitrogen 12 mg/dL 7-18 Blood Urea Nitro gen [place] ([facility]) glomerular filtration rate > 60.0 >45 Glomerula r Filtration Rate [place] ([facility]) creatinine for GFR 0.78 mg/dL 0.55-1.30 Creatinine for GF R [place] ([facility]) sodium level 138 mEq/L 136-145 Sodium Level [facility] ([facility]) potassium serum 4.4 mEq/L 3.5-5.1 Potassium Serum ATHE NA ([facility]) carbon dioxide level 27 mEq/L 21-32 Carbon Dioxide Level [place] ([facility]) chloride level 104 mEq/L 98-107 Chloride Level [place] ([facility]) anion gap 7 mEq/L 8-16 Below low normal Anion Gap [place] ( [facility]) calcium level 8.8 mg/dL 8.8-10.2 Calcium Level [place] ( [facility]) ID Date Data Source [id number] 01/03/2021 05:32:00 AM EST [place] ([facility]) Name Value Range Interpretation Code Description Data Lynette rce(s) Supporting Document(s) white blood count 6.2 10 4.0-10.0 White Blood Count [place] ([facility]) red blood count 3.51 10 4.00-5.40 Below low normal Red Blood Coun t [place] ([facility]) hematocrit 28.1 % 36.0-47.0 Below low normal Hematocrit [place] ( [facility]) hemoglobin 8.3 g/dL 12.0-15.5 Below low normal Hemoglobin [place] ( [facility]) mean corpuscular hemoglobin 23.6 pg 27.0-33.0 Below low nor mal Mean Corpuscular Hemoglobin [place] ([facility]) mean corpuscular volume 80.1 fL 80.0-96.0 Mean Corpusc ular Volume [place] ([facility]) mean corpuscular HGB conc 29.5 g/dL 32.0-36.5 Below low chiqui l Mean Corpuscular HGB Conc [place] ([facility]) red cell distribution width 14.5 % 11.5-14.5 Red Cell Distribution Width [place] ([facility]) platelet count, automated 418 10 150-450 Platelet C ount, Automated [place] ([facility]) nucleated red blood cell % 0.0 % 0-0 Nucleated Red Blood Cell % [place] ([facility]) ID Date Data Source [id number] 01/03/2021 05:32:00 AM EST [place] ([facility]) Name Value Range Interpretation Code Description Data Lynette rce(s) Supporting Document(s) glucose, fasting 97 mg/dL 70-100 Glucose, Fasting AT [facility] ([facility]) blood urea nitrogen 12 mg/dL 7-18 Blood Urea Nitro gen [place] ([facility]) creatinine for GFR 0.78 mg/dL 0.55-1.30 Creatinine for GF R [place] ([facility]) glomerular filtration rate > 60.0 >45 Glomerula r Filtration Rate [place] ([facility]) sodium level 138 mEq/L 136-145 Sodium Level [place] (No [facility]) chloride level 104 mEq/L 98-107 Chloride Level [place] ([facility]) potassium serum 4.4 mEq/L 3.5-5.1 Potassium Serum ATHE NA ([facility]) carbon dioxide level 27 mEq/L 21-32 Carbon Dioxide Level [place] ([facility]) anion gap 7 mEq/L 8-16 Below low normal Anion Gap [place] ( [facility]) calcium level 8.8 mg/dL 8.8-10.2 Calcium Level [place] ( [facility]) ID Date Data Source [id number] 01/03/2021 05:32:00 AM EST [place] ([facility]) Name Value Range Interpretation Code Description Data Lynette rce(s) Supporting Document(s) white blood count 6.2 10 4.0-10.0 White Blood Count [place] ([facility]) hemoglobin 8.3 g/dL 12.0-15.5 Below low normal Hemoglobin [place] ( [facility]) red blood count 3.51 10 4.00-5.40 Below low normal Red Blood Coun t [place] ([facility]) hematocrit 28.1 % 36.0-47.0 Below low normal Hematocrit [place] ( [facility]) mean corpuscular volume 80.1 fL 80.0-96.0 Mean Corpusc ular Volume [place] ([facility]) mean corpuscular hemoglobin 23.6 pg 27.0-33.0 Below low nor mal Mean Corpuscular Hemoglobin [place] ([facility]) mean corpuscular HGB conc 29.5 g/dL 32.0-36.5 Below low chiqui l Mean Corpuscular HGB Conc [place] ([facility]) red cell distribution width 14.5 % 11.5-14.5 Red Cell Distribution Width [place] ([facility]) platelet count, automated 418 10 150-450 Platelet C ount, Automated [place] ([facility]) nucleated red blood cell % 0.0 % 0-0 Nucleated Red Blood Cell % [place] ([facility]) ID Date Data Source [id number] 01/03/2021 05:32:00 AM EST [place] ([facility]) Name Value Range Interpretation Code Description Data Lynette rce(s) Supporting Document(s) blood urea nitrogen 12 mg/dL 7-18 Blood Urea Nitro gen [place] ([facility]) glucose, fasting 97 mg/dL 70-100 Glucose, Fasting AT [place] ([facility]) glomerular filtration rate > 60.0 >45 Glomerula r Filtration Rate [place] ([facility]) creatinine for GFR 0.78 mg/dL 0.55-1.30 Creatinine for GF R [place] ([facility]) sodium level 138 mEq/L 136-145 Sodium Level [facility] (No [facility]) potassium serum 4.4 mEq/L 3.5-5.1 Potassium Serum ATHE NA ([facility]) carbon dioxide level 27 mEq/L 21-32 Carbon Dioxide Level [place] ([facility]) chloride level 104 mEq/L 98-107 Chloride Level [place] ([facility]) anion gap 7 mEq/L 8-16 Below low normal Anion Gap [place] ( [facility]) calcium level 8.8 mg/dL 8.8-10.2 Calcium Level [place] ( [facility]) ID Date Data Source [id number] 01/03/2021 05:32:00 AM EST [place] ([facility]) Name Value Range Interpretation Code Description Data Lynette rce(s) Supporting Document(s) white blood count 6.2 10 4.0-10.0 White Blood Count [place] ([facility]) red blood count 3.51 10 4.00-5.40 Below low normal Red Blood Coun t [place] ([facility]) hemoglobin 8.3 g/dL 12.0-15.5 Below low normal Hemoglobin [place] ( [facility]) hematocrit 28.1 % 36.0-47.0 Below low normal Hematocrit [place] ( [facility]) mean corpuscular volume 80.1 fL 80.0-96.0 Mean Corpusc ular Volume [place] ([facility]) mean corpuscular hemoglobin 23.6 pg 27.0-33.0 Below low nor mal Mean Corpuscular Hemoglobin [place] ([facility]) mean corpuscular HGB conc 29.5 g/dL 32.0-36.5 Below low chiqui l Mean Corpuscular HGB Conc [place] ([facility]) red cell distribution width 14.5 % 11.5-14.5 Red Cell Distribution Width [place] ([facility]) platelet count, automated 418 10 150-450 Platelet C ount, Automated [place] ([facility]) nucleated red blood cell % 0.0 % 0-0 Nucleated Red Blood Cell % [place] ([facility]) ID Date Data Source [id number] 01/02/2021 08:30:00 PM EST [place] ([facility]) Name Value Range Interpretation Code Description Data Lynette rce(s) Supporting Document(s) bedside glucose 136 mg/dL 80-115 Above high normal Bedside Gluco se [place] ([facility]) ID Date Data Source [id number] 01/02/2021 08:30:00 PM EST [place] ([facility]) Name Value Range Interpretation Code Description Data Lynette rce(s) Supporting Document(s) bedside glucose 136 mg/dL 80-115 Above high normal Bedside Gluco se [place] ([facility]) ID Date Data Source [id number] 01/02/2021 08:30:00 PM EST [place] ([facility]) Name Value Range Interpretation Code Description Data Lynette rce(s) Supporting Document(s) bedside glucose 136 mg/dL 80-115 Above high normal Bedside Gluco se [facility]) ID Date Data Source [id number] 01/02/2021 05:21:00 PM EST [place] ([facility]) Name Value Range Interpretation Code Description Data Lynette rce(s) Supporting Document(s) bedside glucose 162 mg/dL 80-115 Above high normal Bedside Gluco se [place] ([facility]) ID Date Data Source [id number] 01/02/2021 05:21:00 PM EST [place] ([facility]) Name Value Range Interpretation Code Description Data Lynette rce(s) Supporting Document(s) bedside glucose 162 mg/dL 80-115 Above high normal Bedside Gluco se [place] ([facility]) ID Date Data Source [id number] 01/02/2021 05:21:00 PM EST [place] ([facility]) Name Value Range Interpretation Code Description Data Lynette rce(s) Supporting Document(s) bedside glucose 162 mg/dL 80-115 Above high normal Bedside Gluco se [place] ([facility]) ID Date Data Source [id number] 01/02/2021 11:37:00 AM EST [place] ([facility]) Name Value Range Interpretation Code Description Data Lynette rce(s) Supporting Document(s) bedside glucose 198 mg/dL 80-115 Above high normal Bedside Gluco se [place] ([facility]) ID Date Data Source [id number] 01/02/2021 11:37:00 AM EST [place] ([facility]) Name Value Range Interpretation Code Description Data Lynette rce(s) Supporting Document(s) bedside glucose 198 mg/dL 80-115 Above high [facility] Date Data Source [id number] 01/02/2021 11:37:00 AM EST [facility] [facility]) Name Value Range Interpretation Code Description Data Lynette rce(s) Supporting Document(s) bedside glucose 198 mg/dL 80-115 Above high normal Bedside Gluco se [place] ([facility]) ID Date Data Source [id number] 01/02/2021 10:21:00 AM EST [place] ([facility]) Name Value Range Interpretation Code Description Data Lynette rce(s) Supporting Document(s) white blood count 7.3 10 4.0-10.0 White Blood Count [place] ([facility]) hemoglobin 9.0 g/dL 12.0-15.5 Below low normal Hemoglobin [place] ( [facility]) red blood count 3.85 10 4.00-5.40 Below low normal Red Blood Coun t [place] ([facility]) hematocrit 30.6 % 36.0-47.0 Below low normal Hematocrit [place] ( [facility]) mean corpuscular volume 79.5 fL 80.0-96.0 Below low normal Mean Corpuscular Volume [facility] ([facility]) mean corpuscular hemoglobin 23.4 pg 27.0-33.0 Below low nor mal Mean Corpuscular Hemoglobin [place] ([facility]) red cell distribution width 14.4 % 11.5-14.5 Red Cell Distribution Width [place] ([facility]) mean corpuscular HGB conc 29.4 g/dL 32.0-36.5 Below low chiqui l Mean Corpuscular HGB Conc [facility] ([facility]) nucleated red blood cell % 0.0 % 0-0 Nucleated Red Blood Cell % [facility] ([facility]) platelet count, automated 474 10 150-450 Above high norm al Platelet Count, Automated [place] ([facility]) ID Date Data Source [id number] 01/02/2021 10:21:00 AM EST [place] ([facility]) Name Value Range Interpretation Code Description Data Lynette rce(s) Supporting Document(s) hemoglobin 9.0 g/dL 12.0-15.5 Below low normal Hemoglobin [place] ( [facility]) white blood count 7.3 10 4.0-10.0 White Blood Count [place] ([facility]) red blood count 3.85 10 4.00-5.40 Below low normal Red Blood Coun t [place] ([facility]) hematocrit 30.6 % 36.0-47.0 Below low normal Hematocrit [place] ( [facility]) mean corpuscular volume 79.5 fL 80.0-96.0 Below low normal Mean Corpuscular Volume [facility] ([facility]) mean corpuscular HGB conc 29.4 g/dL 32.0-36.5 Below low chiqui l Mean Corpuscular HGB Conc [place] ([facility]) mean corpuscular hemoglobin 23.4 pg 27.0-33.0 Below low nor mal Mean Corpuscular Hemoglobin [place] ([facility]) nucleated red blood cell % 0.0 % 0-0 Nucleated Red Blood Cell % [place] ([facility]) red cell distribution width 14.4 % 11.5-14.5 Red Cell Distribution Width [facility] ([facility]) platelet count, automated 474 10 150-450 Above high norm al Platelet Count, Automated [place] ([facility]) ID Date Data Source [id number] 01/02/2021 10:21:00 AM EST [place] ([facility]) Name Value Range Interpretation Code Description Data Lynette rce(s) Supporting Document(s) white blood count 7.3 10 4.0-10.0 White Blood Count [place] ([facility]) red blood count 3.85 10 4.00-5.40 Below low normal Red Blood Coun t [place] ([facility]) hemoglobin 9.0 g/dL 12.0-15.5 Below low normal Hemoglobin [place] ( [facility]) mean corpuscular hemoglobin 23.4 pg 27.0-33.0 Below low nor mal Mean Corpuscular Hemoglobin [place] ([facility]) hematocrit 30.6 % 36.0-47.0 Below low normal Hematocrit [place] ( [facility]) mean corpuscular volume 79.5 fL 80.0-96.0 Below low normal Mean Corpuscular Volume [place] ([facility]) mean corpuscular HGB conc 29.4 g/dL 32.0-36.5 Below low chiqui l Mean Corpuscular HGB Conc [place] ([facility]) red cell distribution width 14.4 % 11.5-14.5 Red Cell Distribution Width [place] ([facility]) platelet count, automated 474 10 150-450 Above high norm al Platelet Count, Automated [place] ([facility]) nucleated red blood cell % 0.0 % 0-0 Nucleated Red Blood Cell % [place] ([facility]) ID Date Data Source [id number] 01/02/2021 05:59:00 AM EST [place] ([facility]) Name Value Range Interpretation Code Description Data Lynette rce(s) Supporting Document(s) MRSA PCR screen not detected negative MRSA PCR Screen AT [facility]) ID Date Data Source [id number] 01/02/2021 05:59:00 AM EST [facility]) Name Value Range Interpretation Code Description Data Lynette rce(s) Supporting Document(s) MRSA PCR screen not detected negative MRSA PCR Screen AT [facility]) ID Date Data Source [id number] 01/02/2021 05:59:00 AM EST [facility]) Name Value Range Interpretation Code Description Data Lynette rce(s) Supporting Document(s) MRSA PCR screen not detected negative MRSA PCR Screen AT [facility]) ID Date Data Source [id number] 01/02/2021 05:37:00 AM EST [facility]) Name Value Range Interpretation Code Description Data Lynette rce(s) Supporting Document(s) Hemoglobin A1c/Hemoglobin.total in Blood 7.7 % Hemoglobin a1C [place] ([facility]) estimated average glucose 174 mg/dL 60-110 Above high norm al Estimated Average Glucose [facility]) ID Date Data Source [id number] 01/02/2021 05:37:00 AM EST [place] ([facility]) Name Value Range Interpretation Code Description Data Lynette rce(s) Supporting Document(s) white blood count 7.1 10 4.0-10.0 White Blood Count [place] ([facility]) hemoglobin 7.5 g/dL 12.0-15.5 Below low normal Hemoglobin [place] ( [facility]) red blood count 3.20 10 4.00-5.40 Below low normal Red Blood Coun t [place] ([facility]) hematocrit 25.4 % 36.0-47.0 Below low normal Hematocrit [place] ( [facility]) mean corpuscular volume 79.4 fL 80.0-96.0 Below low normal Mean Corpuscular Volume [place] ([facility]) mean corpuscular hemoglobin 23.4 pg 27.0-33.0 Below low nor mal Mean Corpuscular Hemoglobin [place] ([facility]) red cell distribution width 14.4 % 11.5-14.5 Red Cell Distribution Width [place] ([facility]) mean corpuscular HGB conc 29.5 g/dL 32.0-36.5 Below low chiqui l Mean Corpuscular HGB Conc [place] ([facility]) nucleated red blood cell % 0.0 % 0-0 Nucleated Red Blood Cell % [place] ([facility]) platelet count, automated 419 10 150-450 Platelet C ount, Automated [place] ([facility]) ID Date Data Source [id number] 01/02/2021 05:37:00 AM EST [place] ([facility]) Name Value Range Interpretation Code Description Data Lynette rce(s) Supporting Document(s) glucose, fasting 108 mg/dL 70-100 Above high normal Glucose, Fas ting [place] ([facility]) blood urea nitrogen 12 mg/dL 7-18 Blood Urea Nitro gen [place] ([facility]) creatinine for GFR 0.71 mg/dL 0.55-1.30 Creatinine for GF R [place] ([facility]) glomerular filtration rate > 60.0 >45 Glomerula r Filtration Rate [place] ([facility]) sodium level 137 mEq/L 136-145 Sodium Level [place] ([facility]) potassium serum 4.0 mEq/L 3.5-5.1 Potassium Serum ATHE NA ([facility]) chloride level 104 mEq/L 98-107 Chloride Level [place] ([facility]) carbon dioxide level 26 mEq/L 21-32 Carbon Dioxide Level [place] ([facility]) calcium level 8.2 mg/dL 8.8-10.2 Below low normal Calcium Level AT [place] ([facility]) anion gap 7 mEq/L 8-16 Below low normal Anion Gap [place] ( [facility]) ID Date Data Source [id number] 01/02/2021 05:37:00 AM EST [facility]) Name Value Range Interpretation Code Description Data Lynette rce(s) Supporting Document(s) Hemoglobin A1c/Hemoglobin.total in Blood 7.7 % Hemoglobin a1C [place] ([facility]) estimated average glucose 174 mg/dL 60-110 Above high norm al Estimated Average Glucose [place] ([facility]) ID Date Data Source [id number] 01/02/2021 05:37:00 AM EST [facility]) Name Value Range Interpretation Code Description Data Lynette rce(s) Supporting Document(s) white blood count 7.1 10 4.0-10.0 White Blood Count [place] ([facility]) red blood count 3.20 10 4.00-5.40 Below low normal Red Blood Coun t [place] ([facility]) hemoglobin 7.5 g/dL 12.0-15.5 Below low normal Hemoglobin [place] ( [facility]) hematocrit 25.4 % 36.0-47.0 Below low normal Hematocrit [place] ( [facility]) mean corpuscular volume 79.4 fL 80.0-96.0 Below low normal Mean Corpuscular Volume [place] ([facility]) mean corpuscular HGB conc 29.5 g/dL 32.0-36.5 Below low chiqui l Mean Corpuscular HGB Conc [place] ([facility]) mean corpuscular hemoglobin 23.4 pg 27.0-33.0 Below low nor mal Mean Corpuscular Hemoglobin [place] ([facility]) platelet count, automated 419 10 150-450 Platelet C ount, Automated [place] ([facility]) red cell distribution width 14.4 % 11.5-14.5 Red Cell Distribution Width [place] ([facility]) nucleated red blood cell % 0.0 % 0-0 Nucleated Red Blood Cell % [place] ([facility]) ID Date Data Source [id number] 01/02/2021 05:37:00 AM EST [place] ([facility]) Name Value Range Interpretation Code Description Data Lynette rce(s) Supporting Document(s) glucose, fasting 108 mg/dL 70-100 Above high normal Glucose, Fas ting [place] ([facility]) blood urea nitrogen 12 mg/dL 7-18 Blood Urea Nitro gen [place] ([facility]) glomerular filtration rate > 60.0 >45 Glomerula r Filtration Rate [place] ([facility]) creatinine for GFR 0.71 mg/dL 0.55-1.30 Creatinine for GF R [place] ([facility]) sodium level 137 mEq/L 136-145 Sodium Level [place] ([facility]) potassium serum 4.0 mEq/L 3.5-5.1 Potassium Serum ATH NA ([facility]) carbon dioxide level 26 mEq/L 21-32 Carbon Dioxide Level [place] ([facility]) chloride level 104 mEq/L 98-107 Chloride Level [place] ([facility]) calcium level 8.2 mg/dL 8.8-10.2 Below low normal Calcium Level AT [facility]) anion gap 7 mEq/L 8-16 Below low normal Anion Gap [place] ( [facility]) ID Date Data Source [id number] 01/02/2021 05:37:00 AM EST [place] ([facility]) Name Value Range Interpretation Code Description Data Lynette rce(s) Supporting Document(s) Hemoglobin A1c/Hemoglobin.total in Blood 7.7 % Hemoglobin a1C [place] ([facility]) estimated average glucose 174 mg/dL 60-110 Above high norm al Estimated Average Glucose [place] ([facility]) ID Date Data Source [id number] 01/02/2021 05:37:00 AM EST [place] ([facility]) Name Value Range Interpretation Code Description Data Lynette rce(s) Supporting Document(s) white blood count 7.1 10 4.0-10.0 White Blood Count [place] ([facility]) red blood count 3.20 10 4.00-5.40 Below low normal Red Blood Coun t [place] ([facility]) hemoglobin 7.5 g/dL 12.0-15.5 Below low normal Hemoglobin [place] ( [facility]) hematocrit 25.4 % 36.0-47.0 Below low normal Hematocrit [place] ( [facility]) mean corpuscular volume 79.4 fL 80.0-96.0 Below low normal Mean Corpuscular Volume [place] ([facility]) mean corpuscular hemoglobin 23.4 pg 27.0-33.0 Below low nor mal Mean Corpuscular Hemoglobin [place] ([facility]) mean corpuscular HGB conc 29.5 g/dL 32.0-36.5 Below low chiqui l Mean Corpuscular HGB Conc [place] ([facility]) red cell distribution width 14.4 % 11.5-14.5 Red Cell Distribution Width [place] ([facility]) nucleated red blood cell % 0.0 % 0-0 Nucleated Red Blood Cell % [place] ([facility]) platelet count, automated 419 10 150-450 Platelet C ount, Automated [place] ([facility]) ID Date Data Source [id number] 01/02/2021 05:37:00 AM EST [place] ([facility]) Name Value Range Interpretation Code Description Data Lynette rce(s) Supporting Document(s) glucose, fasting 108 mg/dL 70-100 Above high normal Glucose, Fas ting [place] ([facility]) blood urea nitrogen 12 mg/dL 7-18 Blood Urea Nitro gen [place] ([facility]) creatinine for GFR 0.71 mg/dL 0.55-1.30 Creatinine for GF R [place] ([facility]) glomerular filtration rate > 60.0 >45 Glomerula r Filtration Rate [place] ([facility]) sodium level 137 mEq/L 136-145 Sodium Level [place] ([facility]) potassium serum 4.0 mEq/L 3.5-5.1 Potassium Serum A[place] NA ([facility]) carbon dioxide level 26 mEq/L 21-32 Carbon Dioxide Level [place] ([facility]) chloride level 104 mEq/L 98-107 Chloride Level [place] ([facility]) anion gap 7 mEq/L 8-16 Below low normal Anion Gap [place] ( [facility]) calcium level 8.2 mg/dL 8.8-10.2 Below low normal Calcium Level AT [place] ([facility]) ID Date Data Source [id number] 01/02/2021 03:36[facility]00 [facility] Name Value Range Interpretation Code Description Data Lynette rce(s) Supporting Document(s) ID Date Data Source [id number] 01/02/2021 03:36:00 AM EST [place] [facility]) Name Value Range Interpretation Code Description Data Lynette rce(s) Supporting Document(s) ID Date Data Source [id number] 01/02/2021 03:36[facility]00 [facility] Name Value Range Interpretation Code Description Data Lynette rce(s) Supporting Document(s) ID Date Data Source [id number] 01/02/2021 12:12:00 AM EST [place] [facility]) Name Value Range Interpretation Code Description Data Lynette rce(s) Supporting Document(s) bedside glucose 159 mg/dL 80-115 Above high normal Bedside Gluco se [place] ([facility]) ID Date Data Source [id number] 01/02/2021 12:12:00 AM EST [place] ([facility]) Name Value Range Interpretation Code Description Data Lynette rce(s) Supporting Document(s) bedside glucose 159 mg/dL 80-115 Above high normal Bedside Gluco se [place] ([facility]) ID Date Data Source [id number] 01/02/2021 12:12:00 AM EST [place] ([facility]) Name Value Range Interpretation Code Description Data Lynette rce(s) Supporting Document(s) bedside glucose 159 mg/dL 80-115 Above high normal Bedside Gluco se [place] ([facility]) ID Date Data Source [id number] 01/01/2021 05:36:00 PM EST [place] ([facility]) Name Value Range Interpretation Code Description Data Lynette rce(s) Supporting Document(s) ID Date Data Source [id number] 01/01/2021 05:36:00 PM EST [place] ([facility]) Name Value Range Interpretation Code Description Data Lynette rce(s) Supporting Document(s) ID Date Data Source [id number] 01/01/2021 05:36:00 PM EST [place] ([facility]) Name Value Range Interpretation Code Description Data Lynette rce(s) Supporting Document(s) C reactive protein quantitativ 7.21 mg/dL 0.00-0.30 Above high normal C Reactive Protein Quantitativ [place] ([facility]) ID Date Data Source [id number] 01/01/2021 05:36:00 PM EST [place] ([facility]) Name Value Range Interpretation Code Description Data Lynette rce(s) Supporting Document(s) amylase 50 U/L 25-115 Amylase [place] ([facility]) ID Date Data Source [id number] 01/01/2021 05:36:00 PM EST [place] ([facility]) Name Value Range Interpretation Code Description Data Lynette rce(s) Supporting Document(s) blood urea nitrogen 15 mg/dL 7-18 Blood Urea Nitro gen [place] ([facility]) glucose, fasting 180 mg/dL 70-100 Above high normal Glucose, Fas ting [place] ([facility]) glomerular filtration rate > 60.0 >45 Glomerula r Filtration Rate [place] ([facility]) creatinine for GFR 0.91 mg/dL 0.55-1.30 Creatinine for GF R [place] ([facility]) sodium level 134 mEq/L 136-145 Below low normal Sodium Level ATHE NA ([facility]) potassium serum 4.2 mEq/L 3.5-5.1 Potassium Serum ATHE NA ([facility]) carbon dioxide level 28 mEq/L 21-32 Carbon Dioxide Level [place] ([facility]) chloride level 100 mEq/L 98-107 Chloride Level [place] ([facility]) calcium level 8.8 mg/dL 8.8-10.2 Calcium Level [place] ( [facility]) anion gap 6 mEq/L 8-16 Below low normal Anion Gap [place] ( [facility]) ID Date Data Source [id number] 01/01/2021 05:36:00 PM EST [place] ([facility]) Name Value Range Interpretation Code Description Data Lynette rce(s) Supporting Document(s) AST/SGOT 4 U/L 7-37 Below low normal AST/SGOT [place] ( [facility]) ALT/SGPT 15 U/L 12-78 ALT/SGPT [place] ([facility]) alkaline phosphatase 94 U/L 45-117 Alkaline Phosph atase [place] ([facility]) bilirubin,total 0.3 mg/dL 0.2-1.0 [facility] bilirubin,direct 0.1 mg/dL 0.0-0.2 Bilirubin,direct AT [facility] ([facility]) albumin/globulin ratio 1.2-2.2 Below low normal Albumin /globulin Ratio [place] ([facility]) albumin 2.4 gm/dL 3.2-5.2 Below low normal Albumin [place] ( [facility]) total protein 6.6 gm/dL 6.4-8.2 Total Protein [place] ( [facility]) ID Date Data Source [id number] 01/01/2021 05:36:00 PM EST [place] ([facility]) Name Value Range Interpretation Code Description Data Lynette rce(s) Supporting Document(s) CK-mb value mass 1.1 NG/mL <3.6 CK-mb Value Mass AT [facility] ([facility]) mb/CK relative index < or =4 mb/CK Relative Index [place] ([facility]) CPK creatine phosphokinase 31 U/L 26-192 CPK Creat ine Phosphokinase [place] ([facility]) troponin I < 0.02 < 0.10 Troponin I [place] ([facility]) ID Date Data Source [id number] 01/01/2021 05:36:00 PM EST [place] ([facility]) Name Value Range Interpretation Code Description Data Lynette rce(s) Supporting Document(s) lactic acid sepsis protocol 1.0 mmol/L 0.4-2.0 Lactic A randall Sepsis Protocol [place] ([facility]) ID Date Data Source [id number] 01/01/2021 05:36:00 PM EST [facility]) Name Value Range Interpretation Code Description Data Lynette rce(s) Supporting Document(s) partial thromboplastin time 31.1 seconds 24.2-38.5 Partial Thromboplastin Time [place] ([facility]) ID Date Data Source [id number] 01/01/2021 05:36:00 PM EST [place] ([facility]) Name Value Range Interpretation Code Description Data Lynette rce(s) Supporting Document(s) prothrombin time 14.5 seconds 12.5-14.3 Above high normal Prothrombi n Time [place] ([facility]) INR Inr [place] ([facility]) ID Date Data Source [id number] 01/01/2021 05:36:00 PM EST [place] ([facility]) Name Value Range Interpretation Code Description Data Lynette rce(s) Supporting Document(s) white blood count 9.6 10 4.0-10.0 White Blood Count [place] ([facility]) hemoglobin 9.0 g/dL 12.0-15.5 Below low normal Hemoglobin [place] ( [facility]) red blood count 3.78 10 4.00-5.40 Below low normal Red Blood Coun t [place] ([facility]) hematocrit 30.2 % 36.0-47.0 Below low normal Hematocrit [place] ( [facility]) mean corpuscular volume 79.9 fL 80.0-96.0 Below low normal Mean Corpuscular Volume [place] ([facility]) mean corpuscular hemoglobin 23.8 pg 27.0-33.0 Below low nor mal Mean Corpuscular Hemoglobin [place] ([facility]) mean corpuscular HGB conc 29.8 g/dL 32.0-36.5 Below low chiqui l Mean Corpuscular HGB Conc [place] ([facility]) red cell distribution width 14.5 % 11.5-14.5 Red Cell Distribution Width [place] ([facility]) neutrophils % 70.8 % 36.0-66.0 Above high normal Neutrophils % [facility] [place] ([facility]) platelet count, automated 513 10 150-450 Above high norm al Platelet Count, Automated [facility]) lymph % 18.2 % 24.0-44.0 Below low normal Lymph % [place] ( [facility]) mono % 8.0 % 2.0-8.0 [place] % [place] ([facility]) eos % 1.9 % 0.0-3.0 Eos % [place] ([facility]) baso % 0.4 % 0.0-1.0 Baso % [place] ([facility]) nucleated red blood cell % 0.0 % 0-0 Nucleated Red Blood Cell % [place] ([facility]) immature granulocyte % 0.7 % 0-3.0 Immature Gran ulocyte % [place] ([facility]) neutrophils # 6.8 10 1.5-8.5 Neutrophils # [place] ( [facility]) lymph # 1.8 10 1.5-5.0 Lymph # [place] ([facility]) eos # 0.2 10 0.0-0.5 Eos # [place] ([facility]) mono # 0.8 10 0.0-0.8 [place] # [place] ([facility]) baso # 0.0 10 0.0-0.2 Baso # [place] ([facility]) ID Date Data Source [id number] 01/01/2021 05:36:00 PM EST [place] ([facility]) Name Value Range Interpretation Code Description Data Lynette rce(s) Supporting Document(s) ID Date Data Source [id number] 01/01/2021 05:36:00 PM EST [place] ([facility]) Name Value Range Interpretation Code Description Data Lynette rce(s) Supporting Document(s) ID Date Data Source [id number] 01/01/2021 05:36:00 PM EST [place] ([facility]) Name Value Range Interpretation Code Description Data Lynette rce(s) Supporting Document(s) C reactive protein quantitativ 7.21 mg/dL 0.00-0.30 Above high normal C Reactive Protein Quantitativ [place] ([facility]) ID Date Data Source [id number] 01/01/2021 05:36:00 PM EST [place] ([facility]) Name Value Range Interpretation Code Description Data Lynette rce(s) Supporting Document(s) amylase 50 U/L 25-115 Amylase [place] ([facility]) ID Date Data Source [id number] 01/01/2021 05:36:00 PM EST [place] ([facility]) Name Value Range Interpretation Code Description Data Lynette rce(s) Supporting Document(s) glucose, fasting 180 mg/dL 70-100 Above high normal Glucose, Fas ting [place] ([place] [facility]) blood urea nitrogen 15 mg/dL 7-18 Blood Urea Nitro gen [facility] ([facility]) creatinine for GFR 0.91 mg/dL 0.55-1.30 Creatinine for GF R [facility] ([facility]) glomerular filtration rate > 60.0 >45 Glomerula r Filtration Rate Y[facility] ([facility]) sodium level 134 mEq/L 136-145 Below low normal Sodium Level [place] NA ([facility]) chloride level 100 mEq/L 98-107 Chloride Level [place] ([facility]) potassium serum 4.2 mEq/L 3.5-5.1 Potassium Serum ATHE NA ([facility]) anion gap 6 mEq/L 8-16 Below low normal Anion Gap [facility] ( [facility]) carbon dioxide level 28 mEq/L 21-32 Carbon Dioxide Level [facility] ([facility]) calcium level 8.8 mg/dL 8.8-10.2 Calcium Level [place] ( [facility]) ID Date Data Source [id number] 01/01/2021 05:36:00 PM EST Y[facility] ([facility]) Name Value Range Interpretation Code Description Data Lynette rce(s) Supporting Document(s) ALT/SGPT 15 U/L 12-78 ALT/SGPT [facility] ([facility]) AST/SGOT 4 U/L 7-37 Below low normal AST/SGOT [place] ( [facility]) bilirubin,direct 0.1 mg/dL 0.0-0.2 Bilirubin,direct AT [facility] ([facility]) bilirubin,total 0.3 mg/dL 0.2-1.0 Bilirubin,total ATHE NA ([facility]) alkaline phosphatase 94 U/L 45-117 Alkaline Phosph atase Y[facility] ([facility]) total protein 6.6 gm/dL 6.4-8.2 Total Protein [place] ( [facility]) albumin 2.4 gm/dL 3.2-5.2 Below low normal Albumin [place] ( [facility]) albumin/globulin ratio 1.2-2.2 Below low normal Albumin /globulin Ratio [facility] ([facility]) ID Date Data Source [id number] 01/01/2021 05:36:00 PM EST Y[facility] ([facility]) Name Value Range Interpretation Code Description Data Lyentte rce(s) Supporting Document(s) CPK creatine phosphokinase 31 U/L 26-192 CPK Creat ine Phosphokinase Y[facility] ([facility]) CK-mb value mass 1.1 NG/mL <3.6 CK-mb Value Mass AT [facility] ([facility]) mb/CK relative index < or =4 mb/CK Relative Index [facility] ([facility]) troponin I < 0.02 < 0.10 Troponin I [facility] ([facility]) ID Date Data Source [id number] 01/01/2021 05:36:00 PM EST [facility] ([facility]) Name Value Range Interpretation Code Description Data Lynette rce(s) Supporting Document(s) lactic acid sepsis protocol 1.0 mmol/L 0.4-2.0 Lactic A randall Sepsis Protocol [facility] ([facility]) ID Date Data Source [id number] 01/01/2021 05:36:00 PM EST [place] ([facility]) Name Value Range Interpretation Code Description Data Lynette rce(s) Supporting Document(s) partial thromboplastin time 31.1 seconds 24.2-38.5 Partial Thromboplastin Time [facility] ([facility]) ID Date Data Source [id number] 01/01/2021 05:36:00 PM EST [facility] ([facility]) Name Value Range Interpretation Code Description Data Lynette rce(s) Supporting Document(s) prothrombin time 14.5 seconds 12.5-14.3 Above high normal Prothrombi n Time [facility] ([facility]) INR Inr [facility] ([facility]) ID Date Data Source [id number] 01/01/2021 05:36:00 PM EST [place] ([facility]) Name Value Range Interpretation Code Description Data Lynette rce(s) Supporting Document(s) white blood count 9.6 10 4.0-10.0 White Blood Count [place] ([facility]) red blood count 3.78 10 4.00-5.40 Below low normal Red Blood Coun t [place] ([facility]) hemoglobin 9.0 g/dL 12.0-15.5 Below low normal Hemoglobin [place] ( [facility]) hematocrit 30.2 % 36.0-47.0 Below low normal Hematocrit [facility] ( [facility]) mean corpuscular HGB conc 29.8 g/dL 32.0-36.5 Below low chiqui l Mean Corpuscular HGB Conc [place] ([facility]) mean corpuscular volume 79.9 fL 80.0-96.0 Below low normal Mean Corpuscular Volume [facility] ([facility]) mean corpuscular hemoglobin 23.8 pg 27.0-33.0 Below low nor mal Mean Corpuscular Hemoglobin [place] ([facility]) platelet count, automated 513 10 150-450 Above high norm al Platelet Count, Automated [place] ([facility]) red cell distribution width 14.5 % 11.5-14.5 Red Cell Distribution Width [place] ([facility]) neutrophils % 70.8 % 36.0-66.0 Above high normal Neutrophils % A [place] ([facility]) mono % 8.0 % 2.0-8.0 [place] % Y[facility]G ([facility]) lymph % 18.2 % 24.0-44.0 Below low normal Lymph % [place] ( [facility]) baso % 0.4 % 0.0-1.0 Baso % [facility] ([facility]) eos % 1.9 % 0.0-3.0 Eos % [facility] ([facility]) nucleated red blood cell % 0.0 % 0-0 Nucleated Red Blood Cell % [facility] ([facility]) immature granulocyte % 0.7 % 0-3.0 Immature Gran ulocyte % [facility] ([facility]) neutrophils # 6.8 10 1.5-8.5 Neutrophils # [place] ( [facility]) mono # 0.8 10 0.0-0.8 [place] # Y[facility]G ([facility]) lymph # 1.8 10 1.5-5.0 Lymph # [facility] ([facility]) eos # 0.2 10 0.0-0.5 Eos # [facility] ([facility]) baso # 0.0 10 0.0-0.2 Baso # [facility] ([facility]) ID Date Data Source [id number] 01/01/2021 05:36:00 PM EST [facility] ([facility]) Name Value Range Interpretation Code Description Data Lynette rce(s) Supporting Document(s) ID Date Data Source [id number] 01/01/2021 05:36:00 PM EST [facility] ([facility]) Name Value Range Interpretation Code Description Data Lynette rce(s) Supporting Document(s) ID Date Data Source [id number] 01/01/2021 05:36:00 PM EST [facility] ([facility]) Name Value Range Interpretation Code Description Data Lynette rce(s) Supporting Document(s) C reactive protein quantitativ 7.21 mg/dL 0.00-0.30 Above high normal C Reactive Protein Quantitativ [facility] ([facility]) ID Date Data Source [id number] 01/01/2021 05:36:00 PM EST [place] ([facility]) Name Value Range Interpretation Code Description Data Lynette rce(s) Supporting Document(s) amylase 50 U/L 25-115 Amylase [facility] ([facility]) ID Date Data Source [id number] 01/01/2021 05:36:00 PM EST [place] ([facility]) Name Value Range Interpretation Code Description Data Lynette rce(s) Supporting Document(s) glucose, fasting 180 mg/dL 70-100 Above high normal Glucose, Fas ting [place] ([facility]) blood urea nitrogen 15 mg/dL 7-18 Blood Urea Nitro gen [place] ([facility]) creatinine for GFR 0.91 mg/dL 0.55-1.30 Creatinine for GF R [place] ([facility]) glomerular filtration rate > 60.0 >45 Glomerula r Filtration Rate [place] ([facility]) potassium serum 4.2 mEq/L 3.5-5.1 Potassium Serum AT[facility] NA ([facility]) sodium level 134 mEq/L 136-145 Below low normal Sodium Level [place] NA ([facility]) carbon dioxide level 28 mEq/L 21-32 Carbon Dioxide Level [place] ([facility]) chloride level 100 mEq/L 98-107 Chloride Level [place] ([facility]) calcium level 8.8 mg/dL 8.8-10.2 Calcium Level [place] ( [facility]) anion gap 6 mEq/L 8-16 Below low normal Anion Gap [place] ( [facility]) ID Date Data Source [id number] 01/01/2021 05:36:00 PM EST [facility]) Name Value Range Interpretation Code Description Data Lynette rce(s) Supporting Document(s) AST/SGOT 4 U/L 7-37 Below low normal AST/SGOT [place] ( [facility]) ALT/SGPT 15 U/L 12-78 ALT/SGPT [facility] ([facility]) alkaline phosphatase 94 U/L 45-117 Alkaline Phosph atase [facility] ([facility]) total protein 6.6 gm/dL 6.4-8.2 Total Protein [place] ( [facility]) bilirubin,total 0.3 mg/dL 0.2-1.0 Bilirubin,total [place] ([facility]) bilirubin,direct 0.1 mg/dL 0.0-0.2 Bilirubin,direct AT [facility]) albumin 2.4 gm/dL 3.2-5.2 Below low normal Albumin [place] ( [facility]) albumin/globulin ratio 1.2-2.2 Below low normal Albumin /globulin Ratio [facility] ([facility]) ID Date Data Source [id number] 01/01/2021 05:36:00 PM EST [place] ([facility]) Name Value Range Interpretation Code Description Data Lynette rce(s) Supporting Document(s) CPK creatine phosphokinase 31 U/L 26-192 CPK Creat ine Phosphokinase [place] ([facility]) troponin I < 0.02 < 0.10 Troponin I [place] ([facility]) CK-mb value mass 1.1 NG/mL <3.6 CK-mb Value Mass AT [facility] ([facility]) mb/CK relative index < or =4 mb/CK Relative Index [place] ([facility]) ID Date Data Source [id number] 01/01/2021 05:36:00 PM EST [place] ([facility]) Name Value Range Interpretation Code Description Data Lynette rce(s) Supporting Document(s) lactic acid sepsis protocol 1.0 mmol/L 0.4-2.0 Lactic A randall Sepsis Protocol [place] ([facility]) ID Date Data Source [id number] 01/01/2021 05:36:00 PM EST [place] ([facility]) Name Value Range Interpretation Code Description Data Lynette rce(s) Supporting Document(s) partial thromboplastin time 31.1 seconds 24.2-38.5 Partial Thromboplastin Time [facility] ([facility]) ID Date Data Source [id number] 01/01/2021 05:36:00 PM EST [place] ([facility]) Name Value Range Interpretation Code Description Data Lynette rce(s) Supporting Document(s) prothrombin time 14.5 seconds 12.5-14.3 Above high normal Prothrombi n Time [facility] ([facility]) INR Inr [facility] ([facility]) ID Date Data Source [id number] 01/01/2021 05:36:00 PM EST [place] ([facility]) Name Value Range Interpretation Code Description Data Lynette rce(s) Supporting Document(s) red blood count 3.78 10 4.00-5.40 Below low normal Red Blood Coun t [place] ([facility]) white blood count 9.6 10 4.0-10.0 White Blood Count [place] ([facility]) hematocrit 30.2 % 36.0-47.0 Below low normal Hematocrit [facility] ( [facility]) hemoglobin 9.0 g/dL 12.0-15.5 Below low normal Hemoglobin [place] ( [facility]) mean corpuscular volume 79.9 fL 80.0-96.0 Below low normal Mean Corpuscular Volume [facility] ([facility]) mean corpuscular hemoglobin 23.8 pg 27.0-33.0 Below low nor mal Mean Corpuscular Hemoglobin [facility] ([facility]) red cell distribution width 14.5 % 11.5-14.5 Red Cell Distribution Width [place] ([facility]) mean corpuscular HGB conc 29.8 g/dL 32.0-36.5 Below low chiqui l Mean Corpuscular HGB Conc [facility] ([facility]) platelet count, automated 513 10 150-450 Above high norm al Platelet Count, Automated [place] ([facility]) lymph % 18.2 % 24.0-44.0 Below low normal Lymph % [place] ( [facility]) neutrophils % 70.8 % 36.0-66.0 Above high normal Neutrophils % A [place] ([facility]) eos % 1.9 % 0.0-3.0 Eos % [place] ([facility]) mono % 8.0 % 2.0-8.0 [place] % [place] ([facility]) immature granulocyte % 0.7 % 0-3.0 Immature Gran ulocyte % [place] ([facility]) baso % 0.4 % 0.0-1.0 Baso % [place] ([facility]) lymph # 1.8 10 1.5-5.0 Lymph # [place] ([facility]) neutrophils # 6.8 10 1.5-8.5 Neutrophils # [place] ( [facility]) nucleated red blood cell % 0.0 % 0-0 Nucleated Red Blood Cell % [facility] ([facility]) mono # 0.8 10 0.0-0.8 [place] # [facility]G ([facility]) eos # 0.2 10 0.0-0.5 Eos # [place] ([facility]) baso # 0.0 10 0.0-0.2 Baso # [place] ([facility]) ID Date Data Source [id number] 01/01/2021 05:36:00 PM EST [facility] Name Value Range Interpretation Code Description Data Lynette rce(s) Supporting Document(s) SARS-CoV-2 (COVID 19) NEGATIVE - SARS-CoV-2 (COVID19) [facility] This lab was ordered by [facility] a nd reported by [facility]. ID Date Data Source [id number] 01/01/2021 05:35:00 PM EST [place] ([facility]) Name Value Range Interpretation Code Description Data Lynette rce(s) Supporting Document(s) ID Date Data Source [id number] 01/01/2021 05:35:00 PM EST [place] ([facility]) Name Value Range Interpretation Code Description Data Lynette rce(s) Supporting Document(s) ID Date Data Source [id number] 01/01/2021 05:35:00 PM EST [place] ([facility]) Name Value Range Interpretation Code Description Data Lynette rce(s) Supporting Document(s) ID Date Data Source [id number] 12/23/2020 02:45:00 PM EST [facility] ([facility]) Name Value Range Interpretation Code Description Data Lynette rce(s) Supporting Document(s) white blood count 11.8 10 4.0-10.0 Above high normal White Blood Count [facility] ([facility]) hemoglobin 10.3 g/dL 12.0-15.5 Below low normal Hemoglobin [facility] ( [facility]) red blood count 4.18 10 4.00-5.40 Red Blood Count AT[facility] NA ([facility]) hematocrit 33.4 % 36.0-47.0 Below low normal Hematocrit [facility] ( [facility]) mean corpuscular volume 79.9 fL 80.0-96.0 Below low normal Mean Corpuscular Volume [facility] ([facility]) mean corpuscular hemoglobin 24.6 pg 27.0-33.0 Below low nor mal Mean Corpuscular Hemoglobin [facility] ([facility]) red cell distribution width 13.9 % 11.5-14.5 Red Cell Distribution Width [facility] ([facility]) mean corpuscular HGB conc 30.8 g/dL 32.0-36.5 Below low chiqui l Mean Corpuscular HGB Conc [facility] ([facility]) platelet count, automated 462 10 150-450 Above high norm al Platelet Count, Automated [facility] ([facility]) neutrophils % 84.2 % 36.0-66.0 Above high normal Neutrophils % A [facility] ([facility]) lymph % 8.2 % 24.0-44.0 Below low normal Lymph % [facility] ( [facility]) mono % 6.3 % 0.0-5.0 Above high normal [place] % [facility] ([facility]) eos % 0.5 % 0.0-3.0 Eos % [facility] ([facility]) baso % 0.3 % 0.0-1.0 Baso % [facility] ([facility]) immature granulocyte % 0.5 % 0-3.0 Immature Gran ulocyte % [facility] ([facility]) nucleated red blood cell % 0.0 % 0-0 Nucleated Red Blood Cell % [facility] ([facility]) lymph # 1.0 10 1.5-5.0 Below low normal Lymph # [facility] ( [facility]) neutrophils # 9.9 10 1.5-8.5 Above high normal Neutrophils # A [facility] ([facility]) mono # 0.7 10 0.0-0.8 [place] # [facility]G ([facility]) eos # 0.1 10 0.0-0.5 Eos # [facility] ([facility]) baso # 0.0 10 0.0-0.2 Baso # [facility] ([facility]) ID Date Data Source [id number] 12/23/2020 02:45:00 PM EST [facility] ([facility]) Name Value Range Interpretation Code Description Data Lynette rce(s) Supporting Document(s) white blood count 11.8 10 4.0-10.0 Above high normal White Blood Count [facility] ([facility]) red blood count 4.18 10 4.00-5.40 Red Blood Count ATHE NA ([facility]) hemoglobin 10.3 g/dL 12.0-15.5 Below low normal Hemoglobin [facility] ( [facility]) mean corpuscular volume 79.9 fL 80.0-96.0 Below low normal Mean Corpuscular Volume [facility] ([facility]) hematocrit 33.4 % 36.0-47.0 Below low normal Hematocrit [facility] ( [facility]) mean corpuscular HGB conc 30.8 g/dL 32.0-36.5 Below low chiqui l Mean Corpuscular HGB Conc [facility] ([facility]) red cell distribution width 13.9 % 11.5-14.5 Red Cell Distribution Width [facility] ([facility]) mean corpuscular hemoglobin 24.6 pg 27.0-33.0 Below low nor mal Mean Corpuscular Hemoglobin [facility] ([facility]) neutrophils % 84.2 % 36.0-66.0 Above high normal Neutrophils % A [place] ([facility]) platelet count, automated 462 10 150-450 Above high norm al Platelet Count, Automated [facility] ([facility]) mono % 6.3 % 0.0-5.0 Above high normal [place] % Y[facility]G ([facility]) eos % 0.5 % 0.0-3.0 Eos % [facility] ([facility]) lymph % 8.2 % 24.0-44.0 Below low normal Lymph % Y[facility] ( [facility]) baso % 0.3 % 0.0-1.0 Baso % [facility] ([facility]) nucleated red blood cell % 0.0 % 0-0 Nucleated Red Blood Cell % [facility] ([facility]) immature granulocyte % 0.5 % 0-3.0 Immature Gran ulocyte % [facility] ([facility]) neutrophils # 9.9 10 1.5-8.5 Above high normal Neutrophils # A [facility] ([facility]) lymph # 1.0 10 1.5-5.0 Below low normal Lymph # Y[facility] ( [facility]) mono # 0.7 10 0.0-0.8 [place] # Y[facility]G ([facility]) baso # 0.0 10 0.0-0.2 Baso # [facility] ([facility]) eos # 0.1 10 0.0-0.5 Eos # [facility] ([facility]) ID Date Data Source [id number] 12/23/2020 02:45:00 PM EST [facility] ([facility]) Name Value Range Interpretation Code Description Data Lynette rce(s) Supporting Document(s) white blood count 11.8 10 4.0-10.0 Above high normal White Blood Count [facility] ([facility]) red blood count 4.18 10 4.00-5.40 Red Blood Count ATHE NA ([facility]) hematocrit 33.4 % 36.0-47.0 Below low normal Hematocrit [facility] ( [facility]) hemoglobin 10.3 g/dL 12.0-15.5 Below low normal Hemoglobin [facility] ( [facility]) mean corpuscular HGB conc 30.8 g/dL 32.0-36.5 Below low chiqui l Mean Corpuscular HGB Conc [facility] ([facility]) mean corpuscular volume 79.9 fL 80.0-96.0 Below low normal Mean Corpuscular Volume [facility] ([facility]) mean corpuscular hemoglobin 24.6 pg 27.0-33.0 Below low nor mal Mean Corpuscular Hemoglobin [facility] ([facility]) neutrophils % 84.2 % 36.0-66.0 Above high normal Neutrophils % [facility] red cell distribution width 13.9 % 11.5-14.5 Red Cell Distribution Width [facility] ([facility]) platelet count, automated 462 10 150-450 Above high norm al Platelet Count, Automated [facility] ([facility]) lymph % 8.2 % 24.0-44.0 Below low normal Lymph % [facility] ( [facility]) mono % 6.3 % 0.0-5.0 Above high normal [place] % [facility] ([facility]) eos % 0.5 % 0.0-3.0 Eos % [facility] ([facility]) baso % 0.3 % 0.0-1.0 Baso % [facility] ([facility]) neutrophils # 9.9 10 1.5-8.5 Above high normal Neutrophils # A [facility] ([facility]) immature granulocyte % 0.5 % 0-3.0 Immature Gran ulocyte % [facility] ([facility]) nucleated red blood cell % 0.0 % 0-0 Nucleated Red Blood Cell % [facility] ([facility]) mono # 0.7 10 0.0-0.8 [place] # [facility]G ([facility]) eos # 0.1 10 0.0-0.5 Eos # [facility] ([facility]) lymph # 1.0 10 1.5-5.0 Below low normal Lymph # [facility] ( [facility]) baso # 0.0 10 0.0-0.2 Baso # [facility] ([facility]) ID Date Data Source [id number] 12/23/2020 01:01:00 PM EST [facility] ([facility]) Name Value Range Interpretation Code Description Data Lynette rce(s) Supporting Document(s) bedside glucose 302 mg/dL 80-115 Above high normal Bedside Gluco se [facility] ([facility]) ID Date Data Source [id number] 12/23/2020 01:01:00 PM EST [facility] ([facility]) Name Value Range Interpretation Code Description Data Lynette rce(s) Supporting Document(s) bedside glucose 302 mg/dL 80-115 Above high normal Bedside Gluco se [facility] ([facility]) ID Date Data Source [id number] 12/23/2020 01:01:00 PM EST [facility] ([facility]) Name Value Range Interpretation Code Description Data Lynette rce(s) Supporting Document(s) bedside glucose 302 mg/dL 80-115 Above high normal Bedside Gluco se [facility] ([facility]) ID Date Data Source [id number] 12/10/2020 01:08:00 PM EST [facility] ([facility]) Name Value Range Interpretation Code Description Data Lynette rce(s) Supporting Document(s) bedside glucose 148 mg/dL 80-115 Above high normal Bedside Gluco se [facility] ([facility]) ID Date Data Source [id number] 12/10/2020 01:08:00 PM EST [facility] ([facility]) Name Value Range Interpretation Code Description Data Lynette rce(s) Supporting Document(s) bedside glucose 148 mg/dL 80-115 Above high normal Bedside Gluco se [facility] ([facility]) ID Date Data Source [id number] 12/10/2020 01:08:00 PM EST [facility] ([facility]) Name Value Range Interpretation Code Description Data Lynette rce(s) Supporting Document(s) bedside glucose 148 mg/dL 80-115 Above high normal Bedside Gluco se [facility] ([facility]) ID Date Data Source [id number] 12/10/2020 10:07:00 AM EST [facility] ([facility]) Name Value Range Interpretation Code Description Data Lynette rce(s) Supporting Document(s) bedside glucose 185 mg/dL 80-115 Above high normal Bedside Gluco se [facility] ([facility]) ID Date Data Source [id number] 12/10/2020 10:07:00 AM EST [facility] ([facility]) Name Value Range Interpretation Code Description Data Lynette rce(s) Supporting Document(s) bedside glucose 185 mg/dL 80-115 Above high normal Bedside Gluco se [facility] ([facility]) ID Date Data Source [id number] 12/10/2020 10:07:00 AM EST Y[place] ([facility]) Name Value Range Interpretation Code Description Data Lynette rce(s) Supporting Document(s) bedside glucose 185 mg/dL 80-115 Above high normal Bedside Gluco se YUNG ([facility]) ID Date Data Source [id number] 12/10/2020 10:06:00 AM EST YUNG ([facility]) Name Value Range Interpretation Code Description Data Lynette rce(s) Supporting Document(s) creatinine for GFR 0.95 mg/dL 0.55-1.30 Creatinine for GF R YUNG ([facility]) blood urea nitrogen 14 mg/dL 7-18 Blood Urea Nitro gen YUNG ([facility]) glucose, fasting 182 mg/dL 70-100 Above high normal Glucose, Fas ting YUNG ([facility]) potassium serum 4.1 mEq/L 3.5-5.1 Potassium Serum ATHE NA ([facility]) sodium level 136 mEq/L 136-145 Sodium Level YUNG (No [facility]) glomerular filtration rate > 60.0 >45 Glomerula r Filtration Rate YUNG ([facility]) chloride level 100 mEq/L 98-107 Chloride Level YUNG ([facility]) anion gap 6 mEq/L 8-16 Below low normal Anion Gap YUNG ( [facility]) carbon dioxide level 30 mEq/L 21-32 Carbon Dioxide Level [place] ([facility]) calcium level 9.6 mg/dL 8.8-10.2 Calcium Level [place] ( [facility]) ID Date Data Source [id number] 12/10/2020 10:06:00 AM EST YUNG ([facility]) Name Value Range Interpretation Code Description Data Lynette rce(s) Supporting Document(s) prothrombin time 13.6 seconds 12.5-14.3 Prothrombin Time YUNG ([facility]) INR Inr YUNG ([facility]) ID Date Data Source [id number] 12/10/2020 10:06:00 AM EST YUNG ([facility]) Name Value Range Interpretation Code Description Data Lynette rce(s) Supporting Document(s) white blood count 10.6 10 4.0-10.0 Above high normal White Blood Count YUNG ([facility]) hemoglobin 11.1 g/dL 12.0-15.5 Below low normal Hemoglobin YUNG ( [facility]) red blood count 4.53 10 4.00-5.40 Red Blood Count ATHE ([facility]) mean corpuscular volume 80.8 fL 80.0-96.0 Mean Corpusc ular Volume YUNG ([facility]) hematocrit 36.6 % 36.0-47.0 Hematocrit YUNG ([facility]) mean corpuscular hemoglobin 24.5 pg 27.0-33.0 Below low nor mal Mean Corpuscular Hemoglobin YUNG ([facility]) red cell distribution width 14.0 % 11.5-14.5 Red Cell Distribution Width Y[place] ([facility]) mean corpuscular HGB conc 30.3 g/dL 32.0-36.5 Below low chiqui l Mean Corpuscular HGB Conc Y[place]G ([facility]) platelet count, automated 404 10 150-450 Platelet C ount, Automated Y[place] ([facility]) nucleated red blood cell % 0.0 % 0-0 Nucleated Red Blood Cell % [place] ([facility]) ID Date Data Source [id number] 12/10/2020 10:06:00 AM EST [place] ([facility]) Name Value Range Interpretation Code Description Data Lynette rce(s) Supporting Document(s) glucose, fasting 182 mg/dL 70-100 Above high normal Glucose, Fas ting Y[place] ([facility]) glomerular filtration rate > 60.0 >45 Glomerula r Filtration Rate [place] ([facility]) creatinine for GFR 0.95 mg/dL 0.55-1.30 Creatinine for GF R [place] ([facility]) blood urea nitrogen 14 mg/dL 7-18 Blood Urea Nitro gen YUNG ([facility]) sodium level 136 mEq/L 136-145 Sodium Level Y[place]G (No [facility]) potassium serum 4.1 mEq/L 3.5-5.1 Potassium Serum A[place] NA ([facility]) anion gap 6 mEq/L 8-16 Below low normal Anion Gap [place] ( [facility]) carbon dioxide level 30 mEq/L 21-32 Carbon Dioxide Level YUNG ([facility]) chloride level 100 mEq/L 98-107 Chloride Level [place] ([facility]) calcium level 9.6 mg/dL 8.8-10.2 Calcium Level [place] ( [facility]) ID Date Data Source [id number] 12/10/2020 10:06:00 AM EST YUNG ([facility]) Name Value Range Interpretation Code Description Data Lynette rce(s) Supporting Document(s) prothrombin time 13.6 seconds 12.5-14.3 Prothrombin Time Y[facility] ([facility]) INR Inr YUNG ([facility]) ID Date Data Source [id number] 12/10/2020 10:06:00 AM EST Y[place] ([facility]) Name Value Range Interpretation Code Description Data Lynette rce(s) Supporting Document(s) white blood count 10.6 10 4.0-10.0 Above high normal White Blood Count Y[place] ([facility]) red blood count 4.53 10 4.00-5.40 Red Blood Count ATHE ([facility]) mean corpuscular volume 80.8 fL 80.0-96.0 Mean Corpusc ular Volume Y[place] ([facility]) hematocrit 36.6 % 36.0-47.0 Hematocrit [place] ([facility]) hemoglobin 11.1 g/dL 12.0-15.5 Below low normal Hemoglobin [place] ( [facility]) mean corpuscular hemoglobin 24.5 pg 27.0-33.0 Below low nor mal Mean Corpuscular Hemoglobin [place] ([facility]) red cell distribution width 14.0 % 11.5-14.5 Red Cell Distribution Width [place] ([facility]) platelet count, automated 404 10 150-450 Platelet C ount, Automated [place] ([facility]) mean corpuscular HGB conc 30.3 g/dL 32.0-36.5 Below low chiqui l Mean Corpuscular HGB Conc Y[place] ([facility]) nucleated red blood cell % 0.0 % 0-0 Nucleated Red Blood Cell % [place] ([facility]) ID Date Data Source [id number] 12/10/2020 10:06:00 AM EST [place] ([facility]) Name Value Range Interpretation Code Description Data Lynette rce(s) Supporting Document(s) creatinine for GFR 0.95 mg/dL 0.55-1.30 Creatinine for GF R [place] ([facility]) blood urea nitrogen 14 mg/dL 7-18 Blood Urea Nitro gen [place] ([facility]) glucose, fasting 182 mg/dL 70-100 Above high normal Glucose, Fas ting [place] ([facility]) glomerular filtration rate > 60.0 >45 Glomerula r Filtration Rate [place] ([facility]) sodium level 136 mEq/L 136-145 Sodium Level [place] (No [facility]) potassium serum 4.1 mEq/L 3.5-5.1 Potassium Serum ATHE NA ([facility]) carbon dioxide level 30 mEq/L 21-32 Carbon Dioxide Level [place] ([facility]) chloride level 100 mEq/L 98-107 Chloride Level [place] ([facility]) anion gap 6 mEq/L 8-16 Below low normal Anion Gap [place] ( [facility]) calcium level 9.6 mg/dL 8.8-10.2 Calcium Level [place] ( [facility]) ID Date Data Source [id number] 12/10/2020 10:06:00 AM EST [place] ([facility]) Name Value Range Interpretation Code Description Data Lynette rce(s) Supporting Document(s) prothrombin time 13.6 seconds 12.5-14.3 Prothrombin Time [place] ([facility]) INR Inr [place] ([facility]) ID Date Data Source [id number] 12/10/2020 10:06:00 AM EST [place] ([facility]) Name Value Range Interpretation Code Description Data Lynette rce(s) Supporting Document(s) white blood count 10.6 10 4.0-10.0 Above high normal White Blood Count [place] ([facility]) red blood count 4.53 10 4.00-5.40 Red Blood Count ATHE NA ([facility]) hematocrit 36.6 % 36.0-47.0 Hematocrit [place] ([facility]) hemoglobin 11.1 g/dL 12.0-15.5 Below low normal Hemoglobin [place] ( [facility]) mean corpuscular volume 80.8 fL 80.0-96.0 Mean Corpusc ular Volume Y[place] ([facility]) mean corpuscular HGB conc 30.3 g/dL 32.0-36.5 Below low chiqui l Mean Corpuscular HGB Conc Y[place] ([facility]) mean corpuscular hemoglobin 24.5 pg 27.0-33.0 Below low nor mal Mean Corpuscular Hemoglobin [place] ([facility]) platelet count, automated 404 10 150-450 Platelet C ount, Automated [place] ([facility]) nucleated red blood cell % 0.0 % 0-0 Nucleated Red Blood Cell % [place] ([facility]) red cell distribution width 14.0 % 11.5-14.5 Red Cell Distribution Width [place] ([facility]) ID Date Data Source [id number] 09/17/2020 07:49:00 PM EST [place] ([facility]) Name Value Range Interpretation Code Description Data Lynette rce(s) Supporting Document(s) bedside glucose 141 mg/dL 80-115 Above high normal Bedside Gluco se [facility]) ID Date Data Source [id number] 09/17/2020 07:49:00 PM EST [place] ([facility]) Name Value Range Interpretation Code Description Data Lynette rce(s) Supporting Document(s) bedside glucose 141 mg/dL 80-115 Above high normal Bedside Gluco se [place] ([facility]) ID Date Data Source [id number] 09/17/2020 07:49:00 PM EST [facility]) Name Value Range Interpretation Code Description Data Lynette rce(s) Supporting Document(s) bedside glucose 141 mg/dL 80-115 Above high normal Bedside Gluco se [place] ([facility]) ID Date Data Source [id number] 09/17/2020 02:53:00 PM EST [place] ([facility]) Name Value Range Interpretation Code Description Data Lynette rce(s) Supporting Document(s) bedside glucose 167 mg/dL 80-115 Above high normal Bedside Gluco se [place] ([facility]) ID Date Data Source [id number] 09/17/2020 02:53:00 PM EST [place] ([facility]) Name Value Range Interpretation Code Description Data Lynette rce(s) Supporting Document(s) bedside glucose 167 mg/dL 80-115 Above high normal Bedside Gluco se [place] ([facility]) ID Date Data Source [id number] 09/17/2020 02:53:00 PM EST [place] ([facility]) Name Value Range Interpretation Code Description Data Lynette rce(s) Supporting Document(s) bedside glucose 167 mg/dL 80-115 Above high normal Bedside Gluco se [place] ([facility]) ID Date Data Source [id number] 09/17/2020 10:58:00 AM EST [place] ([facility]) Name Value Range Interpretation Code Description Data Lynette rce(s) Supporting Document(s) bedside glucose 194 mg/dL 80-115 Above high normal Bedside Gluco se [place] ([facility]) ID Date Data Source [id number] 09/17/2020 10:58:00 AM EST [place] ([facility]) Name Value Range Interpretation Code Description Data Lynette rce(s) Supporting Document(s) bedside glucose 194 mg/dL 80-115 Above high normal Bedside Gluco se [place] ([facility]) ID Date Data Source [id number] 09/17/2020 10:58:00 AM EST [place] ([facility]) Name Value Range Interpretation Code Description Data Lynette rce(s) Supporting Document(s) bedside glucose 194 mg/dL 80-115 Above high normal Bedside Gluco se [place] ([facility]) ID Date Data Source [id number] 08/31/2020 10:40:33 AM EDT [facility] In-House Blood TestsDate/Time Colle cted: August 31, 2020 9:35 AMTest Result Reference Range Normal ValueComments: Blood drawn in office from left AC, tolerated wellNicole Henrry ALVAREZ, August 31, 2020 10:41 AMAssessment & Plan Orders:[id number] Vst-Est Level I [CPT-22385] 56262 - Venipuncture [CPT-42539] Name Value Range Interpretation Code Description Data Lynette rce(s) Supporting Document(s) ID Date Data Source [id number] 08/31/2020 09:35:00 AM EDT [facility] Name Value Range Interpretation Code Description Data Lynette rce(s) Supporting Document(s) VIT D25 TOT 17.7 ng/mL 30.0-100.0 L [facility] BG FASTING 225 mg/dL 70-100 H [facility] T4, FREE 1.57 ng/dL 0.76-1.46 H [facility] TSH 2.090 microintl units/mL 0.358-3.740 N [facility] ID Date Data Source [id number] 08/31/2020 09:35:00 AM EDT [facility] Name Value Range Interpretation Code Description Data Lynette rce(s) Supporting Document(s) HCT 36.3 % 36.0-47.0 N [facility] HGB 10.9 g/dL 12.0-15.5 L [facility] MCH 30.0 G/DL pg 32.0-36.5 L [facility] MCHC 24.3 PG % 27.0-33.0 L [facility] PLATELETS 541 10 10*3/mm3 150-450 H [facility] RBC 4.48 10 10*6/mm3 4.00-5.40 N [facility] RDW 15.1 % 11.5-14.5 H [facility] WBC TOTAL 10.6 4.0-10.0 H [facility] ID Date Data Source [id number] 08/31/2020 09:35:00 AM EDT [facility] Name Value Range Interpretation Code Description Data Lynette rce(s) Supporting Document(s) HGBA1C 8.0 % N [facility] ID Date Data Source PREALBUMIN 08/28/2020 04:05:44 AM EDT eCW1 ([facility]) Name Value Range Interpretation Code Description Data Lynette rce(s) Supporting Document(s) 10.4 PREALBUMIN eCW1 ([facility]) ID Date Data Source C REACTIVE PROTEIN QUANTITATIV (At [facility]) 08/28/2020 04:05 :37 AM EDT eCW1 ([facility]) Name Value Range Interpretation Code Description Data Lynette rce(s) Supporting Document(s) 8.26 C REACTIVE PROTEIN QUANTITATIV eCW1 ([facility]) ID Date Data Source Comprehensive Metabolic Profile (CMP) 08/28/2020 04:05:31 AM EDT eCW1 ([facility]) Name Value Range Interpretation Code Description Data Lynette rce(s) Supporting Document(s) 16 BLOOD UREA NITROGEN eCW1 ([facility]) 179 GLUCOSE, FASTING eCW1 ([facility]) 0.82 CREATININE FOR GFR eCW1 ([facility]) 4.2 POTASSIUM SERUM eCW1 ([facility]) 101 CHLORIDE LEVEL eCW1 ([facility]) > 60.0 GLOMERULAR FILTRATION RATE eCW 1 ([facility]) 135 SODIUM LEVEL eCW1 ([facility]) 9 ALT/SGPT eCW1 ([facility]) 28 CARBON DIOXIDE LEVEL eCW1 ([facility]) 9.2 CALCIUM LEVEL eCW1 ([facility]) 5 AST/SGOT eCW1 ([facility]) 0.7 BILIRUBIN,TOTAL eCW1 ([facility]) 94 ALKALINE PHOSPHATASE eCW1 ([facility]) 7.1 TOTAL PROTEIN eCW1 ([facility]) 0.7 ALBUMIN/GLOBULIN RATIO eCW1 ([facility]) 2.9 ALBUMIN eCW1 ([facility]) ID Date Data Source ERYTHROCYTE SEDIMENTATION RATE 08/28/2020 04:05:13 AM EDT eC W1 ([facility]) Name Value Range Interpretation Code Description Data Lynette rce(s) Supporting Document(s) 65 ERYTHROCYTE SEDIMENTATION RATE eCW1 ([facility]) ID Date Data Source CBC with Differential 08/28/2020 04:05:03 AM EDT eCW1 ([facility]) Name Value Range Interpretation Code Description Data Lynette rce(s) Supporting Document(s) 8.1 WHITE BLOOD COUNT eCW1 ([facility]) 33.5 HEMATOCRIT eCW1 ([facility]) 80.5 MEAN CORPUSCULAR VOLUME eCW1 ( [facility]) 4.16 RED BLOOD COUNT eCW1 ([facility]) 10.0 HEMOGLOBIN eCW1 ([facility]) 15.5 RED CELL DISTRIBUTION WIDTH eC W1 ([facility]) 24.0 MEAN CORPUSCULAR HEMOGLOBIN eC W1 ([facility]) 29.9 MEAN CORPUSCULAR HGB CONC eCW1 ([facility]) 365 PLATELET COUNT, AUTOMATED eCW1 ([facility]) 15.0 LYMPH % eCW1 ([facility]) 73.6 NEUTROPHILS % eCW1 ([facility]) 7.7 MONO % eCW1 ([facility]) 2.5 EOS % eCW1 ([facility]) 0.7 BASO % eCW1 ([facility]) 1.2 LYMPH # eCW1 ([facility]) 5.9 NEUTROPHILS # eCW1 ([facility]) 0.1 BASO # eCW1 ([facility]) 0.2 EOS # eCW1 ([facility]) 0.6 MONO # eCW1 ([facility]) ID Date Data Source WOUND CULTURE 08/21/2020 04:06:50 AM EDT eCW1 ([facility]) Name Value Range Interpretation Code Description Data Lynette rce(s) Supporting Document(s) WOUND CULTURE eCW1 ([facility]) ID Date Data Source Pathology Request For Service 08/21/2020 04:06:02 AM EDT eCW 1 ([facility]) Name Value Range Interpretation Code Description Data Lynette rce(s) Supporting Document(s) SKELETAL eCW1 ([facility]) ID Date Data Source [id number] 08/06/2020 03:17:19 PM EDT [facility] Measurements & CalculationsHeight: 67.50 inches 171.45 [...] her daughter today. Pt states wound care [facility] three times weekly. Pt states sees Dr Nicholas at the wound center every other week. Pt states no longer sees Dr Escoto anymore Pt states that they had a disagreement about a bill. Pt states overwhelmed with recent left foot amputation. left partial ampu tation.. Pt states was prescribed Resperaldal for her Tama shakes. Pt agree to neurology referral. Pt states will go as far as [place] if not able to get in locally. [...] from falls. HPI performed by: Jazmyne Morse 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 following podiatry and wound care. unable to view , covered with dressing. 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 W will contact [facility] to set this up. We will refill your Resperdal until you are established with a new Neurologist.Hypertension (ICD-401.9) (LBS31-H42) Assessment: Instructions: Your Blood Pressure is at goal today. Please continue medication as prescribed. Please continue lifestyle changes to include healthy diet and physical activities. Please try to avoid added sodium in your diet. Please try to avoid processed foods. Please try to maintain adequate Fluid intake.Unsteady gait (ICD-781.2) (TSJ03-Z06.81) Assessment: Pt would like to have a [...] fax script to [facility].MORBID OBESITY (ICD- 278.01) (MTZ27-D95.01) Assessment: Instructions: Please continue lifestyle changes to include healthy diet and physical activities. 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 W will contact [facility] to set this up. 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 Please report any increased [...] ORAL RISPERDAL 0.25 MG ORAL TABLET Qty: [id number] Refills: 30[Tablet] To: RISPERIDONE 0.25 MG ORAL TABLET-take one tablet by mouth daily at bedtime. Qty: 30[Tablet] Refills: 2Allergies:No Known Allergies (updated 12/04/2018) Orders:Neurology Consult [CPT-32494] COMP METABOLIC PANEL [CPT-83992] CBC W/DIFF [CPT-66493] HgBA1c [CPT-29478] LIPID PANEL [CPT-93094] TSH [CPT-33591] T-4 free [CPT-08124] Vitamin D 250H Unspecified [CPT-72446] URINALYSIS [CPT-43495] Urine Culture [CPT-77822] FluLaval Quadrivalent, preservative free [CPT-66292] 91340 - Immo Admin (over 19 yrs), 1st Vaccine [CPT-16680] Adult - Ofc Vst, EST, Level IV [CPT-10899] Follow- Up Return to clinic: 3-4 weeks for follow up Clinical Visit Summary CompletedMedications:WHEEL CHAIR Use for assistance with Mobility #1 x 0 En tered and Authorized by: Jazmyne VALERO Method used: Printed then faxed to ... [facility] (retail) [address] [place] [address] Fax: Indications: UNSTEADY GAIT;MORBID OBESITY;NEVIN'S DISEASE;AMPUTATED TOE OF LEFT FOOT RxID: [id number] 0.25 MG ORAL TABLET (RISPERIDONE) take one tablet by mouth daily at bedtime. #30[Tablet] x 2 Route:ORAL Entered and Authorized by: Jazmyne VALERO Method used: Electronically to [facility] (retail) [address] [place] [address] Ph: [phone] Note to Pharmacy: Route: ORAL; Indications: NEVIN'S DISEASE RxID: [id number] Questionnaire1) Does the patient have a long-term [...] / IM / Left DeltoidNDC / CVX: [id number] / 171Administered Date: 08/06/2020 17:16VFC Eligibility: Not VFC EligibleVIS Date: 06/27/2019VIS Given / VIS Given On: Yes / 08/06/2020Comments: Administered by: Amanda Moncada LPN Name Value Range Interpretation Code Description Data Lynette rce(s) Supporting Document(s) ID Date Data Source [id number] 07/30/2020 12:00:00 AM EDT [facility] Name Value Range Interpretation Code Description Data Lynette rce(s) Supporting Document(s) HCT 33.0 % 36.0-47.0 L [facility] HGB 10.1 g/dL 12.0-15.5 L [facility] MCH 30.6 G/DL pg 32.0-36.5 L [facility] Health MCHC 23.9 PG % 27.0-33.0 L [facility] PLATELETS 390 10 10*3/mm3 150-450 N [facility] RBC 4.22 10 10*6/mm3 4.00-5.40 N [facility] RDW 14.9 % 11.5-14.5 H [facility] WBC TOTAL 10.7 4.0-10.0 H [facility] Procedure Social History Code Duration Value Status Description Data Source(s ) Smoking 09/17/2021 12:00:00 AM EDT Never Smoker completed Never S moker eCW1 ([facility]) Smoking 09/10/2021 12:00:00 AM EDT Never Smoker completed Never S moker eCW1 ([facility]) Smoking 08/27/2021 12:00:00 AM EDT Never Smoker completed Never S moker eCW1 ([facility]) Smoking 08/27/2021 12:00:00 AM EDT Never Smoker completed Never S moker eCW1 ([facility]) Smoking 08/24/2021 12:00:00 AM EDT Never Smoker completed Never S moker eCW1 ([facility]) Smoking 08/24/2021 12:00:00 AM EDT Never Smoker completed Never S moker eCW1 ([facility]) Smoking 08/24/2021 12:00:00 AM EDT Never Smoker completed Never S moker eCW1 ([facility]) Smoking 03/11/2021 09:53:01 AM EDT Never smoked tobacco (findi ng) completed Never smoked tobacco (finding) AARTI (Cristian Cook MD [facility]) Vital Signs ID Date Data Source UNK Name Value Range Interpretation Code Description Data Source(s) Body weight 273 [lb_av] 273 [lb_av] eCW1 ([facility]) Body weight 123.83 kg 123.83 kg eCW1 ([facility]) Body height [in_i] eCW1 ([facility] [facility]) Body mass index (BMI) [Ratio] 44.39 kg/m2 44.39 kg/m2 eCW1 ([facility]) Heart rate 105 /min 105 /min eCW1 ([facility]) Respiratory rate 20 /min 20 /min eCW1 ([facility] Body temperature 97.2 [degF] 97.2 [degF] eCW1 ( [facility]) Respiratory rate 20 /min 20 /min eCW1 ([facility]) Body temperature 97.9 [degF] 97.9 [degF] eCW1 ( [facility]) Systolic blood pressure 118 mm[Hg] 118 mm[Hg] e CW1 ([facility]) Diastolic blood pressure 74 mm[Hg] 74 mm[Hg] eCW1 ([facility]) Body weight 273 [lb_av] 273 [lb_av] eCW1 (Formerly [facility]) Body weight 123.83 kg 123.83 kg eCW1 ([facility]) Body height [in_i] eCW1 ([facility]) Body mass index (BMI) [Ratio] 44.39 kg/m2 44.39 kg/m2 eCW1 ([facility]) Heart rate 97 /min 97 /min eCW1 ([facility]) Body weight 273 [lb_av] 273 [lb_av] eCW1 (Formerly [facility]) Body height [in_i] eCW1 ([facility]) Body mass index (BMI) [Ratio] 44.39 kg/m2 44.39 kg/m2 eCW1 ([facility]) Heart rate 115 /min 115 /min eCW1 ([facility]) Respiratory rate 20 /min 20 /min eCW1 ([facility]) Body temperature 97.9 [degF] 97.9 [degF] eCW1 ( [facility]) Systolic blood pressure 153 mm[Hg] 153 mm[Hg] e CW1 ([facility]) Diastolic blood pressure 64 mm[Hg] 64 mm[Hg] eCW1 ([facility]) Body weight 273.4 [lb_av] 273.4 [lb_av] eCW1 ([facility]) Body height [in_i] eCW1 ([facility]) Body mass index (BMI) [Ratio] 44.46 kg/m2 44.46 kg/m2 eCW1 ([facility]) Heart rate 68 /min 68 /min eCW1 ([facility]) Respiratory rate 20 /min 20 /min eCW1 ([facility]) Body temperature 97.8 [degF] 97.8 [degF] eCW1 ( [facility]) Systolic blood pressure 120 mm[Hg] 120 mm[Hg] e CW1 ([facility]) Diastolic blood pressure mm[Hg] eCW1 ([facility]) Body weight 275 [lb_av] 275 [lb_av] eCW1 ([facility]ly [facility]) Body height [in_i] eCW1 ([facility]) Body mass index (BMI) [Ratio] 44.72 kg/m2 44.72 kg/m2 eCW1 ([facility]) Heart rate 94 /min 94 /min eCW1 ([facility]) Respiratory rate 18 /min 18 /min eCW1 ([facility]) Body temperature 98.1 [degF] 98.1 [degF] eCW1 ( [facility]) Systolic blood pressure 155 mm[Hg] 155 mm[Hg] e CW1 ([facility]) Diastolic blood pressure 67 mm[Hg] 67 mm[Hg] eCW1 ([facility]) Body weight 275 [lb_av] 275 [lb_av] eCW1 ([facility]ly [facility]) Body height [in_i] eCW1 ([facility]) Body mass index (BMI) [Ratio] 44.72 kg/m2 44.72 kg/m2 eCW1 ([facility]) Heart rate 107 /min 107 /min eCW1 ([facility]) Respiratory rate 18 /min 18 /min eCW1 ([facility]) Body temperature 98.1 [degF] 98.1 [degF] eCW1 ( [facility]) Systolic blood pressure 122 mm[Hg] 122 mm[Hg] e CW1 ([facility]) Diastolic blood pressure 94 mm[Hg] 94 mm[Hg] eCW1 ([facility]) Body weight 275 [lb_av] 275 [lb_av] eCW1 ([facility]) Body weight 124.74 kg 124.74 kg eCW1 ([facility]) Body height [in_i] eCW1 ([facility]) Body mass index (BMI) [Ratio] 44.72 kg/m2 44.72 kg/m2 eCW1 ([facility]) Heart rate 85 /min 85 /min eCW1 ([facility]) Respiratory rate 17 /min 17 /min eCW1 ([facility]) Body temperature 97.5 [degF] 97.5 [degF] eCW1 ( [facility]) Systolic blood pressure 133 mm[Hg] 133 mm[Hg] e CW1 ([facility]) Diastolic blood pressure 60 mm[Hg] 60 mm[Hg] eCW1 ([facility]) Body weight 275 [lb_av] 275 [lb_av] eCW1 ([facility]) Body height [in_i] eCW1 ([facility]) Body mass index (BMI) [Ratio] 44.72 kg/m2 44.72 kg/m2 eCW1 ([facility]) Heart rate 83 /min 83 /min eCW1 ([facility]) Respiratory rate 16 /min 16 /min eCW1 ([facility]) Body temperature 98 [degF] 98 [degF] eCW1 ([facility]) Systolic blood pressure 142 mm[Hg] 142 mm[Hg] e CW1 ([facility]) Diastolic blood pressure 82 mm[Hg] 82 mm[Hg] eCW1 ([facility]) Body weight 275 [lb_av] 275 [lb_av] eCW1 ([facility]) Body height [in_i] eCW1 ([facility]) Body mass index (BMI) [Ratio] 44.72 kg/m2 44.72 kg/m2 eCW1 ([facility]) Heart rate 93 /min 93 /min eCW1 ([facility]) Respiratory rate 18 /min 18 /min eCW1 ([facility]) Body temperature 98.5 [degF] 98.5 [degF] eCW1 ( [facility]) Systolic blood pressure 158 mm[Hg] 158 mm[Hg] e CW1 ([facility]) Diastolic blood pressure 90 mm[Hg] 90 mm[Hg] eCW1 ([facility]) Body weight 275 [lb_av] 275 [lb_av] eCW1 ([facility]) Body height [in_i] eCW1 ([facility]) Body mass index (BMI) [Ratio] 44.72 kg/m2 44.72 kg/m2 eCW1 ([facility]) Heart rate 88 /min 88 /min eCW1 ([facility]) Respiratory rate 18 /min 18 /min eCW1 ([facility]) Body temperature 97.9 [degF] 97.9 [degF] eCW1 ( [facility]) Systolic blood pressure 122 mm[Hg] 122 mm[Hg] e CW1 ([facility]) Diastolic blood pressure 85 mm[Hg] 85 mm[Hg] eCW1 ([facility]) Body weight 275 [lb_av] 275 [lb_av] eCW1 ([facility]) Body height [in_i] eCW1 ([facility]) Body mass index (BMI) [Ratio] 44.72 kg/m2 44.72 kg/m2 eCW1 ([facility]) Heart rate 104 /min 104 /min eCW1 ([facility]) Respiratory rate 18 /min 18 /min eCW1 ([facility]) Body temperature 98.4 [degF] 98.4 [degF] eCW1 ( [facility]) Systolic blood pressure 136 mm[Hg] 136 mm[Hg] e CW1 ([facility]) Diastolic blood pressure 58 mm[Hg] 58 mm[Hg] eCW1 ([facility]) Diastolic blood pressure 80 mm[Hg] 80 mm[Hg] YUNG ([facility]) Body height 67.5 [in_i] 67.5 [in_i] YUNG ([facility]) Systolic blood pressure 125 mm[Hg] 125 mm[Hg] A THENA ([facility]) Body weight 275 [lb_av] 275 [lb_av] eCW1 ([facility]) Body height [in_i] eCW1 ([facility]) Body mass index (BMI) [Ratio] 44.72 kg/m2 44.72 kg/m2 eCW1 ([facility]) Heart rate 80 /min 80 /min eCW1 ([facility]) Respiratory rate 19 /min 19 /min eCW1 ([facility]) Body temperature 97.8 [degF] 97.8 [degF] eCW1 ( [facility]) Systolic blood pressure 140 mm[Hg] 140 mm[Hg] e CW1 ([facility]) Diastolic blood pressure 70 mm[Hg] 70 mm[Hg] eCW1 ([facility]) Body weight 275 [lb_av] 275 [lb_av] eCW1 ([facility]) Body height [in_i] eCW1 ([facility]) Body mass index (BMI) [Ratio] 44.72 kg/m2 44.72 kg/m2 eCW1 ([facility]) Heart rate 80 /min 80 /min eCW1 ([facility]) Respiratory rate 18 /min 18 /min eCW1 ([facility]) Body temperature 98.2 [degF] 98.2 [degF] eCW1 ( [facility]) Systolic blood pressure 143 mm[Hg] 143 mm[Hg] e CW1 ([facility]) Diastolic blood pressure 55 mm[Hg] 55 mm[Hg] eCW1 ([facility]) Body weight 275 [lb_av] 275 [lb_av] eCW1 ([facility]) Body weight kg eCW1 ([facility]) Body height [in_i] eCW1 ([facility]) Body mass index (BMI) [Ratio] 44.72 kg/m2 44.72 kg/m2 W1 ([facility]) Heart rate 108 /min 108 /min eCW1 ([facility]) Respiratory rate 18 /min 18 /min eCW1 ([facility]) Body temperature 98.4 [degF] 98.4 [degF] eCW1 ( [facility]) Body weight 275 [lb_av] 275 [lb_av] eCW1 ([facility]) Body weight kg eCW1 ([facility]) Body height [in_i] eCW1 ([facility]) Body mass index (BMI) [Ratio] 44.72 kg/m2 44.72 kg/m2 eCW1 ([facility]) Heart rate 84 /min 84 /min eCW1 ([facility]) Respiratory rate 18 /min 18 /min eCW1 ([facility]) Body temperature 95.4 [degF] 95.4 [degF] eCW1 ( [facility]) Systolic blood pressure 133 mm[Hg] 133 mm[Hg] e CW1 ([facility]) Diastolic blood pressure 57 mm[Hg] 57 mm[Hg] eCW1 ([facility]) Body weight 275 [lb_av] 275 [lb_av] eCW1 ([facility]) Body weight kg eCW1 ([facility]) Body height [in_i] eCW1 ([facility]) Body mass index (BMI) [Ratio] 44.72 kg/m2 44.72 kg/m2 eCW1 ([facility]) Heart rate 66 /min 66 /min eCW1 ([facility]) Respiratory rate 17 /min 17 /min eCW1 ([facility]) Body temperature 98.4 [degF] 98.4 [degF] eCW1 ( [facility]) Body weight 275 [lb_av] 275 [lb_av] eCW1 ([facility]) Body weight kg eCW1 ([facility]) Body height [in_i] eCW1 ([facility]) Body mass index (BMI) [Ratio] 44.72 kg/m2 44.72 kg/m2 eCW1 ([facility]) Heart rate 88 /min 88 /min eCW1 ([facility]) Respiratory rate 18 /min 18 /min eCW1 ([facility]) Body temperature 97.9 [degF] 97.9 [degF] eCW1 ( [facility]) Systolic blood pressure 145 mm[Hg] 145 mm[Hg] e CW1 ([facility]) Diastolic blood pressure 96 mm[Hg] 96 mm[Hg] eCW1 ([facility]) Body weight 275 [lb_av] 275 [lb_av] eCW1 ([facility]) Body weight kg eCW1 ([facility]) Body height [in_i] eCW1 ([facility]) Body mass index (BMI) [Ratio] 44.72 kg/m2 44.72 kg/m2 eCW1 ([facility]) Heart rate 78 /min 78 /min eCW1 ([facility]) Respiratory rate 18 /min 18 /min eCW1 ([facility]) Body temperature 97.8 [degF] 97.8 [degF] eCW1 ( [facility]) Systolic blood pressure 124 mm[Hg] 124 mm[Hg] e CW1 ([facility]) Diastolic blood pressure 65 mm[Hg] 65 mm[Hg] eCW1 ([facility]) Body weight 275 [lb_av] 275 [lb_av] eCW1 ([facility]) Body weight kg eCW1 ([facility]) Body height [in_i] eCW1 ([facility]) Body mass index (BMI) [Ratio] 44.72 kg/m2 44.72 kg/m2 eCW1 ([facility]) Heart rate 84 /min 84 /min eCW1 ([facility]) Respiratory rate 18 /min 18 /min eCW1 ([facility]) Body temperature 98.1 [degF] 98.1 [degF] eCW1 ( [facility]) Systolic blood pressure 122 mm[Hg] 122 mm[Hg] e CW1 ([facility]) Diastolic blood pressure 64 mm[Hg] 64 mm[Hg] eCW1 ([facility]) Body weight 275 [lb_av] 275 [lb_av] eCW1 ([facility]) Body weight kg eCW1 ([facility]) Body height [in_i] eCW1 ([facility]) Body mass index (BMI) [Ratio] 44.72 kg/m2 44.72 kg/m2 eCW1 ([facility]) Heart rate 68 /min 68 /min eCW1 ([facility]) Respiratory rate 18 /min 18 /min eCW1 ([facility]) Body temperature 97.2 [degF] 97.2 [degF] eCW1 ( [facility]) Systolic blood pressure 131 mm[Hg] 131 mm[Hg] e CW1 ([facility]) Diastolic blood pressure 75 mm[Hg] 75 mm[Hg] eCW1 ([facility]) Body weight 275 [lb_av] 275 [lb_av] eCW1 ([facility]) Body weight kg eCW1 ([facility]) Body height [in_i] eCW1 ([facility]) Body mass index (BMI) [Ratio] 44.72 kg/m2 44.72 kg/m2 eCW1 ([facility]) Heart rate 78 /min 78 /min eCW1 ([facility]) Respiratory rate 18 /min 18 /min eCW1 ([facility]) Body temperature 98.4 [degF] 98.4 [degF] eCW1 ( [facility]) Systolic blood pressure 136 mm[Hg] 136 mm[Hg] e CW1 ([facility]) Diastolic blood pressure 82 mm[Hg] 82 mm[Hg] eCW1 ([facility]) Body weight 275 [lb_av] 275 [lb_av] eCW1 ([facility]) Body weight kg eCW1 ([facility]) Body height [in_i] eCW1 ([facility]) Body mass index (BMI) [Ratio] 44.72 kg/m2 44.72 kg/m2 eCW1 ([facility]) Heart rate 86 /min 86 /min eCW1 ([facility]) Respiratory rate 18 /min 18 /min eCW1 ([facility]) Body temperature 98.0 [degF] 98.0 [degF] eCW1 ( [facility]) Systolic blood pressure 132 mm[Hg] 132 mm[Hg] e CW1 ([facility]) Diastolic blood pressure 86 mm[Hg] 86 mm[Hg] eCW1 ([facility]) Body weight 275 [lb_av] 275 [lb_av] eCW1 ([facility]) Body weight kg eCW1 ([facility]) Body height [in_i] eCW1 ([facility]) Body mass index (BMI) [Ratio] 44.72 kg/m2 44.72 kg/m2 eCW1 ([facility]) Heart rate 88 /min 88 /min eCW1 ([facility]) Respiratory rate 18 /min 18 /min eCW1 ([facility]) Body temperature 98.2 [degF] 98.2 [degF] eCW1 ( [facility]) Systolic blood pressure 127 mm[Hg] 127 mm[Hg] e CW1 ([facility]) Diastolic blood pressure 70 mm[Hg] 70 mm[Hg] eCW1 ([facility]) Body weight 275 [lb_av] 275 [lb_av] eCW1 ([facility]) Body height [in_i] eCW1 ([facility]) Body mass index (BMI) [Ratio] 44.72 kg/m2 44.72 kg/m2 eCW1 ([facility]) Heart rate 95 /min 95 /min eCW1 ([facility]) Respiratory rate 18 /min 18 /min eCW1 ([facility]) Body temperature 98.4 [degF] 98.4 [degF] eCW1 ( [facility]) Systolic blood pressure 147 mm[Hg] 147 mm[Hg] e CW1 ([facility]) Diastolic blood pressure 115 mm[Hg] 115 mm[Hg] eCW1 ([facility]) Body weight 275 [lb_av] 275 [lb_av] eCW1 ([facility]) Body height [in_i] eCW1 ([facility]) Body mass index (BMI) [Ratio] 44.72 kg/m2 44.72 kg/m2 eCW1 ([facility]) Heart rate 96 /min 96 /min eCW1 ([facility]) Respiratory rate 18 /min 18 /min eCW1 ([facility]) Body temperature 97.1 [degF] 97.1 [degF] eCW1 ( [facility]) Systolic blood pressure 133 mm[Hg] 133 mm[Hg] e CW1 ([facility]) Diastolic blood pressure 65 mm[Hg] 65 mm[Hg] eCW1 ([facility]) Body weight 275 [lb_av] 275 [lb_av] eCW1 ([facility]) Body weight kg eCW1 ([facility]) Body height [in_i] eCW1 ([facility]) Body mass index (BMI) [Ratio] 44.72 kg/m2 44.72 kg/m2 eCW1 ([facility]) Heart rate 77 /min 77 /min eCW1 ([facility]) Respiratory rate 19 /min 19 /min eCW1 ([facility]) Body temperature 97.5 [degF] 97.5 [degF] eCW1 ( [facility]) Systolic blood pressure 120 mm[Hg] 120 mm[Hg] e CW1 ([facility]) Diastolic blood pressure 76 mm[Hg] 76 mm[Hg] eCW1 ([facility]) Body weight 275 [lb_av] 275 [lb_av] eCW1 ([facility]) Body weight kg eCW1 ([facility]) Body height [in_i] eCW1 ([facility]) Body mass index (BMI) [Ratio] 44.72 kg/m2 44.72 kg/m2 eCW1 ([facility]) Heart rate 76 /min 76 /min eCW1 ([facility]) Respiratory rate 18 /min 18 /min eCW1 ([facility]) Body temperature 98.4 [degF] 98.4 [degF] eCW1 ( [facility]) Systolic blood pressure 120 mm[Hg] 120 mm[Hg] e CW1 ([facility]) Diastolic blood pressure 74 mm[Hg] 74 mm[Hg] eCW1 ([facility]) Body weight 275 [lb_av] 275 [lb_av] eCW1 ([facility]) Body weight kg eCW1 ([facility]) Body height [in_i] eCW1 ([facility]) Body mass index (BMI) [Ratio] 44.72 kg/m2 44.72 kg/m2 eCW1 ([facility]) Heart rate 82 /min 82 /min eCW1 ([facility]) Respiratory rate 18 /min 18 /min eCW1 ([facility]) Body temperature 98.0 [degF] 98.0 [degF] eCW1 ( [facility]) Systolic blood pressure 125 mm[Hg] 125 mm[Hg] e CW1 ([facility]) Diastolic blood pressure 68 mm[Hg] 68 mm[Hg] eCW1 ([facility]) Body weight 275 [lb_av] 275 [lb_av] eCW1 ([facility]) Body weight kg eCW1 ([facility]) Body height [in_i] eCW1 ([facility]) Body mass index (BMI) [Ratio] 44.72 kg/m2 44.72 kg/m2 eCW1 ([facility]) Heart rate 82 /min 82 /min eCW1 ([facility]) Respiratory rate 19 /min 19 /min eCW1 ([facility]) Body temperature 98.2 [degF] 98.2 [degF] eCW1 ( [facility]) Systolic blood pressure 136 mm[Hg] 136 mm[Hg] e CW1 ([facility]) Diastolic blood pressure 84 mm[Hg] 84 mm[Hg] eCW1 ([facility]) Body weight 275 [lb_av] 275 [lb_av] eCW1 ([facility]) Body weight kg eCW1 ([facility]) Body height [in_i] eCW1 ([facility]) Body mass index (BMI) [Ratio] 44.72 kg/m2 44.72 kg/m2 eCW1 ([facility]) Heart rate 81 /min 81 /min eCW1 ([facility]) Respiratory rate 18 /min 18 /min eCW1 ([facility]) Body temperature 98.0 [degF] 98.0 [degF] eCW1 ( [facility]) Systolic blood pressure 133 mm[Hg] 133 mm[Hg] e CW1 ([facility]) Diastolic blood pressure 72 mm[Hg] 72 mm[Hg] eCW1 ([facility]) Body weight 275 [lb_av] 275 [lb_av] eCW1 ([facility]) Body weight kg eCW1 ([facility]) Body height [in_i] eCW1 ([facility]) Body mass index (BMI) [Ratio] 44.72 kg/m2 44.72 kg/m2 eCW1 ([facility]) Heart rate 97 /min 97 /min eCW1 ([facility]) Respiratory rate 16 /min 16 /min eCW1 ([facility]) Body temperature 95.6 [degF] 95.6 [degF] eCW1 ( [facility]) Systolic blood pressure 138 mm[Hg] 138 mm[Hg] e CW1 ([facility]) Diastolic blood pressure 72 mm[Hg] 72 mm[Hg] eCW1 ([facility]) Body weight 275 [lb_av] 275 [lb_av] eCW1 ([facility]) Body weight kg eCW1 ([facility]) Body height [in_i] eCW1 ([facility]) Body mass index (BMI) [Ratio] 44.72 kg/m2 44.72 kg/m2 eCW1 ([facility]) Heart rate 71 /min 71 /min eCW1 ([facility]) Respiratory rate 18 /min 18 /min eCW1 ([facility]) Body temperature 95.4 [degF] 95.4 [degF] eCW1 ( [facility]) Systolic blood pressure 168 mm[Hg] 168 mm[Hg] e CW1 ([facility]) Diastolic blood pressure 58 mm[Hg] 58 mm[Hg] eCW1 ([facility]) Body weight 275 [lb_av] 275 [lb_av] eCW1 ([facility]) Body height [in_i] eCW1 ([facility]) Body mass index (BMI) [Ratio] 44.72 kg/m2 44.72 kg/m2 eCW1 ([facility]) Heart rate 99 /min 99 /min eCW1 ([facility]) Respiratory rate 18 /min 18 /min eCW1 ([facility]) Body temperature 98.1 [degF] 98.1 [degF] eCW1 ( [facility]) Systolic blood pressure 132 mm[Hg] 132 mm[Hg] e CW1 ([facility]) Diastolic blood pressure 84 mm[Hg] 84 mm[Hg] eCW1 ([facility]) Body weight 275 [lb_av] 275 [lb_av] eCW1 ([facility]) Body weight kg eCW1 ([facility]) Body height [in_i] eCW1 ([facility]) Body mass index (BMI) [Ratio] 44.72 kg/m2 44.72 kg/m2 eCW1 ([facility]) Heart rate 87 /min 87 /min eCW1 ([facility]) Respiratory rate 18 /min 18 /min eCW1 ([facility]) Body temperature 97.7 [degF] 97.7 [degF] eCW1 ( [facility]) Systolic blood pressure 136 mm[Hg] 136 mm[Hg] e CW1 ([facility]) Diastolic blood pressure 84 mm[Hg] 84 mm[Hg] eCW1 ([facility]) Body weight 275 [lb_av] 275 [lb_av] eCW1 ([facility]) Body weight kg eCW1 ([facility]) Body height [in_i] eCW1 ([facility]) Body mass index (BMI) [Ratio] 44.72 kg/m2 44.72 kg/m2 eCW1 ([facility]) Heart rate 95 /min 95 /min eCW1 ([facility]) Respiratory rate 16 /min 16 /min eCW1 ([facility]) Body temperature 98.1 [degF] 98.1 [degF] eCW1 ( [facility]) Systolic blood pressure 146 mm[Hg] 146 mm[Hg] e CW1 ([facility]) Diastolic blood pressure 80 mm[Hg] 80 mm[Hg] eCW1 ([facility]) Body weight 275 [lb_av] 275 [lb_av] eCW1 ([facility]) Body weight kg eCW1 ([facility]) Body height [in_i] eCW1 ([facility]) Body mass index (BMI) [Ratio] 44.72 kg/m2 44.72 kg/m2 eCW1 ([facility]) Heart rate 88 /min 88 /min eCW1 ([facility]) Respiratory rate 18 /min 18 /min eCW1 ([facility]) Body temperature 97.7 [degF] 97.7 [degF] eCW1 ( [facility]) Systolic blood pressure 138 mm[Hg] 138 mm[Hg] e CW1 ([facility]) Diastolic blood pressure 78 mm[Hg] 78 mm[Hg] eCW1 ([facility]) Body weight 275 [lb_av] 275 [lb_av] eCW1 ([facility]) Body weight kg eCW1 ([facility]) Body height [in_i] eCW1 ([facility]) Body mass index (BMI) [Ratio] 44.72 kg/m2 44.72 kg/m2 eCW1 ([facility]) Heart rate 72 /min 72 /min eCW1 ([facility]) Respiratory rate 18 /min 18 /min eCW1 ([facility]) Body temperature 96.2 [degF] 96.2 [degF] eCW1 ( [facility]) Systolic blood pressure 126 mm[Hg] 126 mm[Hg] e CW1 ([facility]) Diastolic blood pressure 78 mm[Hg] 78 mm[Hg] eCW1 ([facility]) Body weight 275 [lb_av] 275 [lb_av] eCW1 ([facility]) Body weight kg eCW1 ([facility]) Body height [in_i] eCW1 ([facility]) Body mass index (BMI) [Ratio] 44.72 kg/m2 44.72 kg/m2 eCW1 ([facility]) Heart rate 72 /min 72 /min eCW1 ([facility]) Respiratory rate 18 /min 18 /min eCW1 ([facility]) Body temperature 98.4 [degF] 98.4 [degF] eCW1 ( [facility]) Systolic blood pressure 142 mm[Hg] 142 mm[Hg] e CW1 ([facility]) Diastolic blood pressure 86 mm[Hg] 86 mm[Hg] eCW1 ([facility]) Body weight 275 [lb_av] 275 [lb_av] eCW1 ([facility]) Body weight kg eCW1 ([facility]) Body height [in_i] eCW1 ([facility]) Body mass index (BMI) [Ratio] 44.72 kg/m2 44.72 kg/m2 eCW1 ([facility]) Heart rate 75 /min 75 /min eCW1 ([facility]) Respiratory rate 18 /min 18 /min eCW1 ([facility]) Body temperature 97.9 [degF] 97.9 [degF] eCW1 ( [facility]) Systolic blood pressure 149 mm[Hg] 149 mm[Hg] e CW1 ([facility]) Diastolic blood pressure 71 mm[Hg] 71 mm[Hg] eCW1 ([facility]) Body weight 275 [lb_av] 275 [lb_av] eCW1 ([facility]) Body weight kg eCW1 ([facility]) Body height [in_i] eCW1 ([facility]) Body mass index (BMI) [Ratio] 44.72 kg/m2 44.72 kg/m2 eCW1 ([facility]) Heart rate 88 /min 88 /min eCW1 ([facility]) Respiratory rate 18 /min 18 /min eCW1 ([facility]) Body temperature 98.2 [degF] 98.2 [degF] eCW1 ( [facility]) Systolic blood pressure 139 mm[Hg] 139 mm[Hg] e CW1 ([facility]) Diastolic blood pressure 81 mm[Hg] 81 mm[Hg] eCW1 ([facility]) Body weight 275 [lb_av] 275 [lb_av] eCW1 ([facility]) Body weight kg eCW1 ([facility]) Body height [in_i] eCW1 ([facility]) Body mass index (BMI) [Ratio] 44.72 kg/m2 44.72 kg/m2 eCW1 ([facility]) Heart rate 76 /min 76 /min eCW1 ([facility]) Respiratory rate 18 /min 18 /min eCW1 ([facility]) Body temperature 98.2 [degF] 98.2 [degF] eCW1 ( [facility]) Systolic blood pressure 140 mm[Hg] 140 mm[Hg] e CW1 ([facility]) Diastolic blood pressure 65 mm[Hg] 65 mm[Hg] eCW1 ([facility]) Body weight 275 [lb_av] 275 [lb_av] eCW1 ([facility]) Body weight kg eCW1 ([facility]) Body height [in_i] eCW1 ([facility]) Body mass index (BMI) [Ratio] 44.72 kg/m2 44.72 kg/m2 eCW1 ([facility]) Heart rate 85 /min 85 /min eCW1 ([facility]) Respiratory rate 18 /min 18 /min eCW1 ([facility]) Body temperature 98.3 [degF] 98.3 [degF] eCW1 ( [facility]) Systolic blood pressure 132 mm[Hg] 132 mm[Hg] e CW1 ([facility]) Diastolic blood pressure 70 mm[Hg] 70 mm[Hg] eCW1 ([facility]) Body weight 275 [lb_av] 275 [lb_av] eCW1 ([facility]) Body weight kg eCW1 ([facility]) Body height [in_i] eCW1 ([facility]) Body mass index (BMI) [Ratio] 44.72 kg/m2 44.72 kg/m2 eCW1 ([facility]) Heart rate 71 /min 71 /min eCW1 ([facility]) Respiratory rate 18 /min 18 /min eCW1 [facility] Body temperature 98.6 [degF] 98.6 [degF] eCW1 ( [facility]) Systolic blood pressure 110 mm[Hg] 110 mm[Hg] e CW1 ([facility]) Diastolic blood pressure 70 mm[Hg] 70 mm[Hg] eCW1 ([facility]) Body weight 275 [lb_av] 275 [lb_av] eCW1 (Formerly [facility]) Body weight kg eCW1 ([facility]) Body height [in_i] eCW1 ([facility]) Body mass index (BMI) [Ratio] 44.72 kg/m2 44.72 kg/m2 eCW1 ([facility]) Heart rate 73 /min 73 /min eCW1 ([facility]) Respiratory rate 18 /min 18 /min eCW1 ([facility]) Body temperature 98.6 [degF] 98.6 [degF] eCW1 ( [facility]) Systolic blood pressure 120 mm[Hg] 120 mm[Hg] e CW1 ([facility]) Diastolic blood pressure 70 mm[Hg] 70 mm[Hg] eCW1 ([facility]) Body weight 275 [lb_av] 275 [lb_av] eCW1 ([facility]ly [facility]) Body weight kg eCW1 ([facility]) Body height [in_i] eCW1 ([facility]) Body mass index (BMI) [Ratio] 44.72 kg/m2 44.72 kg/m2 eCW1 ([facility]) Heart rate 77 /min 77 /min eCW1 ([facility]) Respiratory rate 18 /min 18 /min eCW1 ([facility]) Body temperature 98.3 [degF] 98.3 [degF] eCW1 ( [facility]) Systolic blood pressure 119 mm[Hg] 119 mm[Hg] e CW1 ([facility]) Diastolic blood pressure 57 mm[Hg] 57 mm[Hg] eCW1 ([facility]) Body weight 275 [lb_av] 275 [lb_av] eCW1 ([facility]) Body weight kg eCW1 ([facility]) Body height [in_i] eCW1 ([facility]) Body mass index (BMI) [Ratio] 44.72 kg/m2 44.72 kg/m2 eCW1 ([facility]) Heart rate 81 /min 81 /min eCW1 ([facility]) Respiratory rate 18 /min 18 /min eCW1 ([facility]) Body temperature 98.2 [degF] 98.2 [degF] eCW1 ( [facility]) Systolic blood pressure 141 mm[Hg] 141 mm[Hg] e CW1 ([facility]) Diastolic blood pressure 55 mm[Hg] 55 mm[Hg] eCW1 ([facility]) Body weight 275 [lb_av] 275 [lb_av] eCW1 ([facility]) Body weight kg eCW1 ([facility]) Body height [in_i] eCW1 ([facility]) Body mass index (BMI) [Ratio] 44.72 kg/m2 44.72 kg/m2 eCW1 ([facility]) Heart rate 72 /min 72 /min eCW1 ([facility]) Respiratory rate 18 /min 18 /min eCW1 ([facility]) Body temperature 98.2 [degF] 98.2 [degF] eCW1 ( [facility]) Systolic blood pressure 142 mm[Hg] 142 mm[Hg] e CW1 ([facility]) Diastolic blood pressure 89 mm[Hg] 89 mm[Hg] eCW1 ([facility]) Body weight kg eCW1 ([facility]) Body height [in_i] eCW1 ([facility]) Body mass index (BMI) [Ratio] 44.72 kg/m2 44.72 kg/m2 eCW1 ([facility]) Heart rate 71 /min 71 /min eCW1 ([facility]) Respiratory rate 18 /min 18 /min eCW1 ([facility]) Body temperature 97.0 [degF] 97.0 [degF] eCW1 ( [facility]) Systolic blood pressure 148 mm[Hg] 148 mm[Hg] e CW1 ([facility]) Diastolic blood pressure 76 mm[Hg] 76 mm[Hg] eCW1 ([facility]) Body weight 275 [lb_av] 275 [lb_av] eCW1 ([facility]) Body weight 275 [lb_av] 275 [lb_av] eCW1 ([facility]) Body weight kg eCW1 ([facility]) Body height [in_i] eCW1 ([facility]) Body mass index (BMI) [Ratio] 44.72 kg/m2 44.72 kg/m2 eCW1 ([facility]) Heart rate 76 /min 76 /min eCW1 ([facility]) Respiratory rate 18 /min 18 /min eCW1 ([facility]) Body temperature 97.8 [degF] 97.8 [degF] eCW1 ( [facility]) Systolic blood pressure 126 mm[Hg] 126 mm[Hg] e CW1 ([facility]) Diastolic blood pressure 56 mm[Hg] 56 mm[Hg] eCW1 ([facility]) Body weight 275 [lb_av] 275 [lb_av] eCW1 ([facility]) Body weight kg eCW1 ([facility]) Body height [in_i] eCW1 ([facility]) Body mass index (BMI) [Ratio] 44.72 kg/m2 44.72 kg/m2 eCW1 ([facility]) Heart rate 84 /min 84 /min eCW1 ([facility]) Respiratory rate 18 /min 18 /min eCW1 ([facility]) Body temperature 97.5 [degF] 97.5 [degF] eCW1 ( [facility]) Systolic blood pressure 144 mm[Hg] 144 mm[Hg] e CW1 ([facility]) Diastolic blood pressure 85 mm[Hg] 85 mm[Hg] eCW1 ([facility]) Body weight 275 [lb_av] 275 [lb_av] eCW1 ([facility]) Body weight kg eCW1 ([facility]) Body height [in_i] eCW1 ([facility]) Body mass index (BMI) [Ratio] 44.72 kg/m2 44.72 kg/m2 eCW1 ([facility]) Heart rate 84 /min 84 /min eCW1 ([facility]) Respiratory rate 18 /min 18 /min eCW1 ([facility]) Body temperature 97.5 [degF] 97.5 [degF] eCW1 ( [facility]) Systolic blood pressure 145 mm[Hg] 145 mm[Hg] e CW1 ([facility]) Diastolic blood pressure 76 mm[Hg] 76 mm[Hg] eCW1 ([facility]) Body weight 275 [lb_av] 275 [lb_av] eCW1 ([facility]) Body weight kg eCW1 ([facility]) Body height [in_i] eCW1 ([facility]) Body mass index (BMI) [Ratio] 44.72 kg/m2 44.72 kg/m2 eCW1 ([facility]) Heart rate 82 /min 82 /min eCW1 ([facility]) Respiratory rate 18 /min 18 /min eCW1 ([facility]) Body temperature 97.4 [degF] 97.4 [degF] eCW1 ( [facility]) Systolic blood pressure 138 mm[Hg] 138 mm[Hg] e CW1 ([facility]) Diastolic blood pressure 84 mm[Hg] 84 mm[Hg] eCW1 ([facility]) Body weight 275 [lb_av] 275 [lb_av] eCW1 ([facility]) Body weight kg eCW1 ([facility]) Body height [in_i] eCW1 ([facility]) Body mass index (BMI) [Ratio] 44.72 kg/m2 44.72 kg/m2 eCW1 ([facility]) Heart rate 78 /min 78 /min eCW1 ([facility]) Respiratory rate 18 /min 18 /min eCW1 ([facility]) Body temperature 96.3 [degF] 96.3 [degF] eCW1 ( [facility]) Systolic blood pressure 141 mm[Hg] 141 mm[Hg] e CW1 ([facility]) Diastolic blood pressure 83 mm[Hg] 83 mm[Hg] eCW1 ([facility]) Body weight 275 [lb_av] 275 [lb_av] eCW1 ([facility]) Body weight kg eCW1 ([facility]) Body height [in_i] eCW1 ([facility]) Body mass index (BMI) [Ratio] 44.72 kg/m2 44.72 kg/m2 eCW1 ([facility]) Heart rate 76 /min 76 /min eCW1 ([facility]) Respiratory rate 18 /min 18 /min eCW1 ([facility]) Body temperature 97.4 [degF] 97.4 [degF] eCW1 ( [facility]) Systolic blood pressure 146 mm[Hg] 146 mm[Hg] e CW1 ([facility]) Diastolic blood pressure 64 mm[Hg] 64 mm[Hg] eCW1 ([facility]) Body weight 275 [lb_av] 275 [lb_av] eCW1 ([facility]) Body weight kg eCW1 ([facility]) Body height [in_i] eCW1 ([facility]) Body mass index (BMI) [Ratio] 44.72 kg/m2 44.72 kg/m2 eCW1 ([facility]) Heart rate 80 /min 80 /min eCW1 ([facility]) Respiratory rate 18 /min 18 /min eCW1 ([facility]) Body temperature 98.1 [degF] 98.1 [degF] eCW1 ( [facility]) Systolic blood pressure 144 mm[Hg] 144 mm[Hg] e CW1 ([facility]) Diastolic blood pressure 69 mm[Hg] 69 mm[Hg] eCW1 ([facility]) Body weight 275 [lb_av] 275 [lb_av] eCW1 ([facility]) Body weight kg eCW1 ([facility]) Body height [in_i] eCW1 ([facility]) Body mass index (BMI) [Ratio] 44.72 kg/m2 44.72 kg/m2 eCW1 ([facility]) Heart rate 81 /min 81 /min eCW1 ([facility]) Respiratory rate 18 /min 18 /min eCW1 ([facility]) Body temperature 96.6 [degF] 96.6 [degF] eCW1 ( [facility]) Systolic blood pressure 137 mm[Hg] 137 mm[Hg] e CW1 ([facility]) Diastolic blood pressure 96 mm[Hg] 96 mm[Hg] eCW1 ([facility]) Body weight 275 [lb_av] 275 [lb_av] eCW1 ([facility]) Body weight kg eCW1 ([facility]) Body height [in_i] eCW1 ([facility]) Body mass index (BMI) [Ratio] 44.72 kg/m2 44.72 kg/m2 eCW1 ([facility]) Heart rate 85 /min 85 /min eCW1 ([facility]) Respiratory rate 18 /min 18 /min eCW1 ([facility]) Body temperature 97.5 [degF] 97.5 [degF] eCW1 ( [facility]) Systolic blood pressure 133 mm[Hg] 133 mm[Hg] e CW1 ([facility]) Diastolic blood pressure 70 mm[Hg] 70 mm[Hg] eCW1 ([facility]) Body weight 275 [lb_av] 275 [lb_av] eCW1 ([facility]) Body weight kg eCW1 ([facility]) Body height [in_i] eCW1 ([facility]) Body mass index (BMI) [Ratio] 44.72 kg/m2 44.72 kg/m2 eCW1 ([facility]) Heart rate 96 /min 96 /min eCW1 ([facility]) Respiratory rate 18 /min 18 /min eCW1 ([facility]) Body temperature 97.4 [degF] 97.4 [degF] eCW1 ( [facility]) Body weight 275 [lb_av] 275 [lb_av] eCW1 ([facility]) Body weight kg eCW1 ([facility]) Body height [in_i] eCW1 ([facility]) Body mass index (BMI) [Ratio] 44.72 kg/m2 44.72 kg/m2 eCW1 ([facility]) Heart rate 64 /min 64 /min eCW1 ([facility]) Respiratory rate 18 /min 18 /min eCW1 ([facility]) Body temperature 97.9 [degF] 97.9 [degF] eCW1 ( [facility]) Systolic blood pressure 142 mm[Hg] 142 mm[Hg] e CW1 ([facility]) Diastolic blood pressure 70 mm[Hg] 70 mm[Hg] eCW1 ([facility]) Body weight 275 [lb_av] 275 [lb_av] eCW1 ([facility]) Body weight kg eCW1 ([facility]) Body height [in_i] eCW1 ([facility]) Body mass index (BMI) [Ratio] 44.72 kg/m2 44.72 kg/m2 eCW1 ([facility]) Heart rate 84 /min 84 /min eCW1 ([facility]) Respiratory rate 18 /min 18 /min eCW1 ([facility]) Body temperature 96.2 [degF] 96.2 [degF] eCW1 ( [facility]) Systolic blood pressure 136 mm[Hg] 136 mm[Hg] e CW1 ([facility]) Diastolic blood pressure 88 mm[Hg] 88 mm[Hg] eCW1 ([facility]) Body weight 275 [lb_av] 275 [lb_av] eCW1 ([facility]) Body weight kg eCW1 ([facility]) Body height [in_i] eCW1 ([facility]) Body mass index (BMI) [Ratio] 44.72 kg/m2 44.72 kg/m2 eCW1 ([facility]) Heart rate 68 /min 68 /min eCW1 ([facility]) Respiratory rate 18 /min 18 /min eCW1 ([facility]) Body temperature 97.4 [degF] 97.4 [degF] eCW1 ( [facility]) Systolic blood pressure 135 mm[Hg] 135 mm[Hg] e CW1 ([facility]) Diastolic blood pressure 78 mm[Hg] 78 mm[Hg] eCW1 ([facility]) Body weight 275 [lb_av] 275 [lb_av] eCW1 ([facility]) Body weight kg eCW1 ([facility]) Body height [in_i] eCW1 ([facility]) Body mass index (BMI) [Ratio] 44.72 kg/m2 44.72 kg/m2 eCW1 ([facility]) Heart rate 76 /min 76 /min eCW1 ([facility]) Respiratory rate 18 /min 18 /min eCW1 ([facility]) Body temperature 97.7 [degF] 97.7 [degF] eCW1 ( [facility]) Systolic blood pressure 147 mm[Hg] 147 mm[Hg] e CW1 ([facility]) Diastolic blood pressure 70 mm[Hg] 70 mm[Hg] eCW1 ([facility]) Body weight 275 [lb_av] 275 [lb_av] eCW1 ([facility]) Body weight kg eCW1 ([facility]) Body height [in_i] eCW1 ([facility]) Body mass index (BMI) [Ratio] 44.72 kg/m2 44.72 kg/m2 eCW1 ([facility]) Heart rate 84 /min 84 /min eCW1 ([facility]) Respiratory rate 18 /min 18 /min eCW1 ([facility]) Body temperature 97.6 [degF] 97.6 [degF] eCW1 ( [facility]) Systolic blood pressure 141 mm[Hg] 141 mm[Hg] e CW1 ([facility]) Diastolic blood pressure 78 mm[Hg] 78 mm[Hg] eCW1 ([facility]) Body weight 275 [lb_av] 275 [lb_av] eCW1 ([facility]) Body weight kg eCW1 ([facility]) Body height [in_i] eCW1 ([facility]) Body mass index (BMI) [Ratio] 44.72 kg/m2 44.72 kg/m2 eCW1 ([facility]) Heart rate 81 /min 81 /min eCW1 ([facility]) Respiratory rate 18 /min 18 /min eCW1 ([facility]) Body temperature 97.7 [degF] 97.7 [degF] eCW1 ( [facility]) Systolic blood pressure 143 mm[Hg] 143 mm[Hg] e CW1 ([facility]) Diastolic blood pressure 90 mm[Hg] 90 mm[Hg] eCW1 ([facility]) Body weight 275 [lb_av] 275 [lb_av] eCW1 ([facility]) Body weight kg eCW1 ([facility]) Body height [in_i] eCW1 ([facility]) Body mass index (BMI) [Ratio] 44.72 kg/m2 44.72 kg/m2 eCW1 ([facility]) Heart rate 88 /min 88 /min eCW1 ([facility]) Respiratory rate 18 /min 18 /min eCW1 ([facility]) Body temperature 97.8 [degF] 97.8 [degF] eCW1 ( [facility]) Systolic blood pressure 150 mm[Hg] 150 mm[Hg] e CW1 ([facility]) Diastolic blood pressure 71 mm[Hg] 71 mm[Hg] eCW1 ([facility]) Body weight 275 [lb_av] 275 [lb_av] eCW1 ([facility]) Body weight kg eCW1 ([facility]) Body height [in_i] eCW1 ([facility]) Body mass index (BMI) [Ratio] 44.72 kg/m2 44.72 kg/m2 eCW1 ([facility]) Heart rate 78 /min 78 /min eCW1 ([facility]) Respiratory rate 18 /min 18 /min eCW1 ([facility]) Body temperature 98.1 [degF] 98.1 [degF] eCW1 ( [facility]) Systolic blood pressure 140 mm[Hg] 140 mm[Hg] e CW1 ([facility]) Diastolic blood pressure 76 mm[Hg] 76 mm[Hg] eCW1 ([facility]) Body weight 275 [lb_av] 275 [lb_av] eCW1 ([facility]) Body height [in_i] eCW1 ([facility]) Body mass index (BMI) [Ratio] 44.72 kg/m2 44.72 kg/m2 eCW1 ([facility]) Heart rate 90 /min 90 /min eCW1 ([facility]) Respiratory rate 16 /min 16 /min eCW1 ([facility]) Body temperature 96.3 [degF] 96.3 [degF] eCW1 ( [facility]) Systolic blood pressure 144 mm[Hg] 144 mm[Hg] e CW1 ([facility]) Diastolic blood pressure 91 mm[Hg] 91 mm[Hg] eCW1 ([facility]) Body weight 275 [lb_av] 275 [lb_av] eCW1 ([facility]) Body height [in_i] eCW1 ([facility]) Body mass index (BMI) [Ratio] 53.70 kg/m2 53.70 kg/m2 eCW1 ([facility]) Heart rate 70 /min 70 /min eCW1 ([facility]) Respiratory rate 18 /min 18 /min eCW1 ([facility]) Body temperature 98.1 [degF] 98.1 [degF] eCW1 ( [facility]) Body weight 274 [lb_av] 274 [lb_av] eCW1 ([facility]) Body weight kg eCW1 ([facility]) Body height [in_i] eCW1 ([facility]) Body mass index (BMI) [Ratio] 44.56 kg/m2 44.56 kg/m2 eCW1 ([facility]) Heart rate 82 /min 82 /min eCW1 ([facility]) Respiratory rate 18 /min 18 /min eCW1 ([facility]) Body temperature 97.2 [degF] 97.2 [degF] eCW1 ( [facility]) Systolic blood pressure 129 mm[Hg] 129 mm[Hg] e CW1 ([facility]) Diastolic blood pressure 74 mm[Hg] 74 mm[Hg] eCW1 ([facility]) Body weight 274 [lb_av] 274 [lb_av] eCW1 ([facility]) Body height [in_i] eCW1 ([facility]) Body mass index (BMI) [Ratio] 44.56 kg/m2 44.56 kg/m2 W1 ([facility]) Heart rate 100 /min 100 /min eCW1 ([facility]) Respiratory rate 18 /min 18 /min eCW1 ([facility]) Body temperature 97.5 [degF] 97.5 [degF] eCW1 ( [facility]) Systolic blood pressure 144 mm[Hg] 144 mm[Hg] e CW1 ([facility]) Diastolic blood pressure 68 mm[Hg] 68 mm[Hg] eCW1 ([facility]) Body weight 274 [lb_av] 274 [lb_av] eCW1 ([facility]) Body weight kg eCW1 ([facility]) Body height [in_i] eCW1 ([facility]) Body mass index (BMI) [Ratio] 44.56 kg/m2 44.56 kg/m2 eCW1 ([facility]) Heart rate 89 /min 89 /min eCW1 ([facility]) Respiratory rate 17 /min 17 /min eCW1 ([facility]) Body temperature 97.6 [degF] 97.6 [degF] eCW1 ( [facility]) Systolic blood pressure 193 mm[Hg] 193 mm[Hg] e CW1 ([facility]) Diastolic blood pressure 85 mm[Hg] 85 mm[Hg] eCW1 ([facility]) Body weight 274 [lb_av] 274 [lb_av] eCW1 ([facility]) Body weight kg eCW1 ([facility]) Body height [in_i] eCW1 ([facility]) Body mass index (BMI) [Ratio] 44.56 kg/m2 44.56 kg/m2 eCW1 ([facility]) Heart rate 109 /min 109 /min eCW1 ([facility]) Respiratory rate 19 /min 19 /min eCW1 ([facility]) Body temperature 98.0 [degF] 98.0 [degF] eCW1 ( [facility]) Systolic blood pressure 139 mm[Hg] 139 mm[Hg] e CW1 ([facility]) Diastolic blood pressure 89 mm[Hg] 89 mm[Hg] eCW1 ([facility]) Diastolic blood pressure 56 mm[Hg] 56 mm[Hg] YUNG ([facility]) Body height 67.5 [in_i] 67.5 [in_i] YUNG ([facility]) Body mass index (BMI) [Ratio] 42.3 kg/m2 42.3 k g/m2 YUNG ([facility]) Systolic blood pressure 101 mm[Hg] 101 mm[Hg] A THENA ([facility]) Body weight 4384 [oz_av] 4384 [oz_av] YUNG ([facility]) Diastolic blood pressure 56 mm[Hg] 56 mm[Hg] YUNG ([facility]) Body height 67.5 [in_i] 67.5 [in_i] YUNG ([facility]) Body mass index (BMI) [Ratio] 42.3 kg/m2 42.3 k g/m2 YUNG ([facility]) Systolic blood pressure 101 mm[Hg] 101 mm[Hg] A THENA ([facility]) Body weight 4384 [oz_av] 4384 [oz_av] YUNG ([facility]) Diastolic blood pressure 56 mm[Hg] 56 mm[Hg] YUNG ([facility]) Body height 67.5 [in_i] 67.5 [in_i] YUNG ([facility]) Body mass index (BMI) [Ratio] 42.3 kg/m2 42.3 k g/m2 YUNG ([facility]) Systolic blood pressure 101 mm[Hg] 101 mm[Hg] A THENA ([facility]) Body weight 4384 [oz_av] 4384 [oz_av] YUNG ([facility]) Body weight 274 [lb_av] 274 [lb_av] eCW1 ([facility]) Body height [in_i] eCW1 ([facility]) Body mass index (BMI) [Ratio] 44.56 kg/m2 44.56 kg/m2 eCW1 ([facility]) Heart rate 94 /min 94 /min eCW1 ([facility]) Respiratory rate 20 /min 20 /min eCW1 ([facility]) Body temperature 98.6 [degF] 98.6 [degF] eCW1 ( [facility]) Systolic blood pressure 120 mm[Hg] 120 mm[Hg] e CW1 ([facility]) Diastolic blood pressure 80 mm[Hg] 80 mm[Hg] eCW1 ([facility]) Body weight 290 [lb_av] 290 [lb_av] eCW1 ([facility]) Body weight kg eCW1 ([facility]) Body height [in_i] eCW1 ([facility]) Body mass index (BMI) [Ratio] 47.16 kg/m2 47.16 kg/m2 eCW1 ([facility]) Heart rate 109 /min 109 /min eCW1 ([facility]) Respiratory rate 19 /min 19 /min eCW1 ([facility]) Body temperature 98.2 [degF] 98.2 [degF] eCW1 ( [facility]) Systolic blood pressure 140 mm[Hg] 140 mm[Hg] e CW1 ([facility]) Diastolic blood pressure 88 mm[Hg] 88 mm[Hg] eCW1 ([facility]) Body weight 290 [lb_av] 290 [lb_av] eCW1 ([facility]) Body height [in_i] eCW1 ([facility]) Body mass index (BMI) [Ratio] 47.16 kg/m2 47.16 kg/m2 eCW1 ([facility]) Heart rate 85 /min 85 /min eCW1 ([facility]) Respiratory rate 20 /min 20 /min eCW1 ([facility]) Body temperature 97.4 [degF] 97.4 [degF] eCW1 ( [facility]) Systolic blood pressure 161 mm[Hg] 161 mm[Hg] e CW1 ([facility]) Diastolic blood pressure 101 mm[Hg] 101 mm[Hg] eCW1 ([facility]) Body weight 290 [lb_av] 290 [lb_av] eCW1 ([facility]) Body weight kg eCW1 ([facility]) Body height [in_i] eCW1 ([facility]) Body mass index (BMI) [Ratio] 47.16 kg/m2 47.16 kg/m2 eCW1 ([facility]) Heart rate 86 /min 86 /min eCW1 ([facility]) Respiratory rate 18 /min 18 /min eCW1 ([facility]) Body temperature 96.5 [degF] 96.5 [degF] eCW1 ( [facility]) Systolic blood pressure 124 mm[Hg] 124 mm[Hg] e CW1 ([facility]) Diastolic blood pressure 85 mm[Hg] 85 mm[Hg] eCW1 ([facility]) Body weight 290 [lb_av] 290 [lb_av] eCW1 ([facility]) Body height [in_i] eCW1 ([facility]) Body mass index (BMI) [Ratio] 47.16 kg/m2 47.16 kg/m2 eCW1 ([facility]) Heart rate 83 /min 83 /min eCW1 ([facility]) Respiratory rate 20 /min 20 /min eCW1 ([facility]) Body temperature 97.2 [degF] 97.2 [degF] eCW1 ( [facility]) Systolic blood pressure 134 mm[Hg] 134 mm[Hg] e CW1 ([facility]) Diastolic blood pressure 63 mm[Hg] 63 mm[Hg] eCW1 ([facility]) Body weight 290 [lb_av] 290 [lb_av] eCW1 ([facility]) Body weight kg eCW1 ([facility]) Body height [in_i] eCW1 ([facility]) Body mass index (BMI) [Ratio] 47.16 kg/m2 47.16 kg/m2 W1 ([facility]) Heart rate 74 /min 74 /min eCW1 ([facility]) Respiratory rate 18 /min 18 /min eCW1 ([facility]) Body temperature 95.4 [degF] 95.4 [degF] eCW1 ( [facility]) Systolic blood pressure 151 mm[Hg] 151 mm[Hg] e CW1 ([facility]) Diastolic blood pressure 84 mm[Hg] 84 mm[Hg] eCW1 ([facility]) Body weight 290 [lb_av] 290 [lb_av] eCW1 ([facility]) Body weight kg eCW1 ([facility]) Body height [in_i] eCW1 ([facility]) Body mass index (BMI) [Ratio] 47.16 kg/m2 47.16 kg/m2 eCW1 ([facility]) Heart rate 89 /min 89 /min eCW1 ([facility]) Respiratory rate 18 /min 18 /min eCW1 ([facility]) Body temperature 97.8 [degF] 97.8 [degF] eCW1 ( [facility]) Systolic blood pressure 169 mm[Hg] 169 mm[Hg] e CW1 ([facility]) Diastolic blood pressure 74 mm[Hg] 74 mm[Hg] eCW1 ([facility]) Body weight 290 [lb_av] 290 [lb_av] eCW1 ([facility]) Body height [in_i] eCW1 ([facility]) Body mass index (BMI) [Ratio] 47.16 kg/m2 47.16 kg/m2 eCW1 ([facility]) Heart rate 81 /min 81 /min eCW1 ([facility]) Respiratory rate 17 /min 17 /min eCW1 ([facility]) Body temperature 96.3 [degF] 96.3 [degF] eCW1 ( [facility]) Systolic blood pressure 134 mm[Hg] 134 mm[Hg] e CW1 ([facility]) Diastolic blood pressure mm[Hg] eCW1 ([facility]) Body weight 290 [lb_av] 290 [lb_av] eCW1 ([facility]) Body height [in_i] eCW1 ([facility]) Body mass index (BMI) [Ratio] 47.16 kg/m2 47.16 kg/m2 eCW1 ([facility]) Heart rate 97 /min 97 /min eCW1 ([facility]) Respiratory rate 18 /min 18 /min eCW1 ([facility]) Body temperature 97.5 [degF] 97.5 [degF] eCW1 ( [facility]) Systolic blood pressure 138 mm[Hg] 138 mm[Hg] e CW1 ([facility]) Diastolic blood pressure 57 mm[Hg] 57 mm[Hg] eCW1 ([facility]) Body weight 290 [lb_av] 290 [lb_av] eCW1 ([facility]) Body weight kg eCW1 ([facility]) Body height [in_i] eCW1 ([facility]) Body mass index (BMI) [Ratio] 47.16 kg/m2 47.16 kg/m2 eCW1 ([facility]) Heart rate 82 /min 82 /min eCW1 ([facility]) Respiratory rate 18 /min 18 /min eCW1 ([facility]) Body temperature 96.8 [degF] 96.8 [degF] eCW1 ( [facility]) Systolic blood pressure 142 mm[Hg] 142 mm[Hg] e CW1 ([facility]) Diastolic blood pressure 60 mm[Hg] 60 mm[Hg] eCW1 ([facility]) Body weight 290 [lb_av] 290 [lb_av] eCW1 ([facility]) Body weight kg eCW1 ([facility]) Body height [in_i] eCW1 ([facility]) Body mass index (BMI) [Ratio] 47.16 kg/m2 47.16 kg/m2 eCW1 ([facility]) Heart rate 110 /min 110 /min eCW1 ([facility]) Respiratory rate 20 /min 20 /min eCW1 ([facility]) Body temperature 95 [degF] 95 [degF] eCW1 ([facility]) Systolic blood pressure 147 mm[Hg] 147 mm[Hg] e CW1 ([facility]) Diastolic blood pressure 82 mm[Hg] 82 mm[Hg] eCW1 ([facility]) Body weight 290 [lb_av] 290 [lb_av] eCW1 ([facility]) Body height [in_i] eCW1 ([facility]) Body mass index (BMI) [Ratio] 47.16 kg/m2 47.16 kg/m2 eCW1 ([facility]) Heart rate 84 /min 84 /min eCW1 ([facility]) Respiratory rate 18 /min 18 /min eCW1 ([facility]) Body temperature 96.9 [degF] 96.9 [degF] eCW1 ( [facility]) Systolic blood pressure 189 mm[Hg] 189 mm[Hg] e CW1 ([facility]) Diastolic blood pressure 92 mm[Hg] 92 mm[Hg] eCW1 ([facility]) Body weight 290 [lb_av] 290 [lb_av] eCW1 ([facility]) Body height [in_i] eCW1 ([facility]) Body mass index (BMI) [Ratio] 47.16 kg/m2 47.16 kg/m2 eCW1 ([facility]) Heart rate 80 /min 80 /min eCW1 ([facility]) Respiratory rate 16 /min 16 /min eCW1 ([facility]) Body temperature 97.5 [degF] 97.5 [degF] eCW1 ( [facility]) Systolic blood pressure 145 mm[Hg] 145 mm[Hg] e CW1 ([facility]) Diastolic blood pressure 77 mm[Hg] 77 mm[Hg] eCW1 ([facility]) Body weight 290 [lb_av] 290 [lb_av] eCW1 ([facility]) Body weight kg eCW1 ([facility]) Body height [in_i] eCW1 ([facility]) Body mass index (BMI) [Ratio] 47.16 kg/m2 47.16 kg/m2 eCW1 ([facility]) Heart rate 96 /min 96 /min eCW1 ([facility]) Respiratory rate 18 /min 18 /min eCW1 ([facility]) Body temperature 97.7 [degF] 97.7 [degF] eCW1 ( [facility]) Systolic blood pressure 134 mm[Hg] 134 mm[Hg] e CW1 ([facility]) Diastolic blood pressure 82 mm[Hg] 82 mm[Hg] eCW1 ([facility]) Diastolic blood pressure 59 mm[Hg] 59 mm[Hg] YUNG ([facility]) Body height 67.5 [in_i] 67.5 [in_i] YUNG ([facility]) Body mass index (BMI) [Ratio] 45.1 kg/m2 45.1 k g/m2 YUNG ([facility]) Systolic blood pressure 124 mm[Hg] 124 mm[Hg] A THEN ([facility]) Body weight 4678.4 [oz_av] 4678.4 [oz_av] ATHEN A ([facility]) Diastolic blood pressure 59 mm[Hg] 59 mm[Hg] YUNG ([facility]) Body height 67.5 [in_i] 67.5 [in_i] YUNG ([facility]) Body mass index (BMI) [Ratio] 45.1 kg/m2 45.1 k g/m2 YUNG ([facility]) Systolic blood pressure 124 mm[Hg] 124 mm[Hg] A THENA ([facility]) Body weight 4678.4 [oz_av] 4678.4 [oz_av] ATHEN A ([facility]) Diastolic blood pressure 59 mm[Hg] 59 mm[Hg] YUNG ([facility]) Body height 67.5 [in_i] 67.5 [in_i] YUNG ([facility]) Body mass index (BMI) [Ratio] 45.1 kg/m2 45.1 k g/m2 YUNG ([facility]) Systolic blood pressure 124 mm[Hg] 124 mm[Hg] A [facility] ([facility]) Body weight 4678.4 [oz_av] 4678.4 [oz_av] ATHEN A ([facility]) Diastolic blood pressure 59 mm[Hg] 59 mm[Hg] YUNG ([facility]) Body height 67.5 [in_i] 67.5 [in_i] YUNG ([facility]) Body mass index (BMI) [Ratio] 45.1 kg/m2 45.1 k g/m2 YUNG ([facility]) Systolic blood pressure 124 mm[Hg] 124 mm[Hg] A THENA ([facility]) Body weight 4678.4 [oz_av] 4678.4 [oz_av] ATHEN A ([facility]) Body weight 290 [lb_av] 290 [lb_av] eCW1 ([facility]) Body weight kg eCW1 ([facility]) Body height [in_i] eCW1 ([facility]) Body mass index (BMI) [Ratio] 47.16 kg/m2 47.16 kg/m2 eCW1 ([facility]) Heart rate 86 /min 86 /min eCW1 ([facility]) Respiratory rate 18 /min 18 /min eCW1 ([facility]) Body temperature 96.5 [degF] 96.5 [degF] eCW1 ( [facility]) Systolic blood pressure 144 mm[Hg] 144 mm[Hg] e CW1 ([facility]) Diastolic blood pressure 82 mm[Hg] 82 mm[Hg] eCW1 ([facility]) Body weight 290 [lb_av] 290 [lb_av] eCW1 ([facility]) Body weight kg eCW1 ([facility]) Body height [in_i] eCW1 ([facility]) Body mass index (BMI) [Ratio] 47.16 kg/m2 47.16 kg/m2 eCW1 ([facility]) Heart rate 102 /min 102 /min eCW1 ([facility]) Respiratory rate 18 /min 18 /min eCW1 ([facility]) Body temperature 97.6 [degF] 97.6 [degF] eCW1 ( [facility]) Systolic blood pressure 122 mm[Hg] 122 mm[Hg] e CW1 ([facility]) Diastolic blood pressure 58 mm[Hg] 58 mm[Hg] eCW1 ([facility]) Body weight 290 [lb_av] 290 [lb_av] eCW1 ([facility]) Body weight kg eCW1 ([facility]) Body height [in_i] eCW1 ([facility]) Body mass index (BMI) [Ratio] 47.16 kg/m2 47.16 kg/m2 eCW1 ([facility]) Heart rate 111 /min 111 /min eCW1 ([facility]) Respiratory rate 18 /min 18 /min eCW1 ([facility]) Body temperature 96.8 [degF] 96.8 [degF] eCW1 ( [facility]) Body weight 290 [lb_av] 290 [lb_av] eCW1 ([facility]) Body weight kg eCW1 ([facility]) Body height [in_i] eCW1 ([facility]) Body mass index (BMI) [Ratio] 47.16 kg/m2 47.16 kg/m2 eCW1 ([facility]) Heart rate 71 /min 71 /min eCW1 ([facility]) Respiratory rate 16 /min 16 /min eCW1 ([facility]) Body temperature 96.6 [degF] 96.6 [degF] eCW1 ( [facility]) Systolic blood pressure 118 mm[Hg] 118 mm[Hg] e CW1 ([facility]) Diastolic blood pressure 56 mm[Hg] 56 mm[Hg] eCW1 ([facility]) Diastolic blood pressure 66 mm[Hg] 66 mm[Hg] YUNG ([facility]) Body height 67.5 [in_i] 67.5 [in_i] YUNG ([facility]) Body mass index (BMI) [Ratio] 44.91 kg/m2 44.91 kg/m2 YUNG ([facility]) Systolic blood pressure 108 mm[Hg] 108 mm[Hg] [facility] Body weight 4640 [oz_av] 4640 [oz_av] YUNG ([facility]) Diastolic blood pressure 66 mm[Hg] 66 mm[Hg] YUNG ([facility]) Body height 67.5 [in_i] 67.5 [in_i] YUNG ([facility]) Body mass index (BMI) [Ratio] 44.91 kg/m2 44.91 kg/m2 YUNG ([facility]) Systolic blood pressure 108 mm[Hg] 108 mm[Hg] A THENA ([facility]) Body weight 4640 [oz_av] 4640 [oz_av] YUNG ([facility]) Diastolic blood pressure 66 mm[Hg] 66 mm[Hg] YUNG ([facility]) Body height 67.5 [in_i] 67.5 [in_i] YUNG ([facility]) Body mass index (BMI) [Ratio] 44.91 kg/m2 44.91 kg/m2 YUNG ([facility]) Systolic blood pressure 108 mm[Hg] 108 mm[Hg] A THENA ([facility]) Body weight 4640 [oz_av] 4640 [oz_av] YUNG ([facility]) Patient Treatment Plan of Care Planned Activity Planned Date Details Description Data Source (s) Cefadroxil 500 MG Oral Capsule 09/17/2021 12:00:00 AM EDT eCW1 ([facility]) Duricef 500 mg 05/25/2021 12:00:00 AM EDT eCW1 ([facility]) doxycycline hyclate 100 MG Oral Tablet 08/21/2020 12:00:00 AM EDT eCW1 ([facility]) silver sulfadiazine 10 MG/ML Topical Cream YUNG ([facility]) Penicillin V Potassium 500 MG Oral Tablet YUNG ([facility]) Ondansetron 4 MG Oral Tablet YUNG ([facility]) Metronidazole 500 MG Oral Tablet YUNG ([facility]) Levofloxacin 750 MG Oral Tablet YUNG ([facility]) ferrous sulfate 325 MG Oral Tablet YUNG ([facility]) Erythromycin 333 MG Delayed Release Oral Tablet YUNG ([facility]) doxycycline hyclate 100 MG Oral Tablet YUNG ([facility]) clopidogrel 75 MG Oral Tablet YUNG ([facility]) Clindamycin 300 MG Oral Capsule YUNG ([facility]) Cephalexin 500 MG Oral Capsule YUNG ([facility]) Ceftriaxone 2000 MG Injection YUNG ([facility]) Ceftriaxone 2000 MG Injection YUNG ([facility]) Cefadroxil 500 MG Oral Capsule YUNG ([facility]) silver sulfadiazine 10 MG/ML Topical Cream YUNG ([facility]) Levofloxacin 750 MG Oral Tablet YUNG ([facility]) ferrous sulfate 325 MG Oral Tablet YUNG ([facility]) Erythromycin 333 MG Delayed Release Oral Tablet YUNG ([facility]) Clindamycin 300 MG Oral Capsule YUNG ([facility]) Cephalexin 500 MG Oral Capsule YUNG ([facility]) Penicillin V Potassium 500 MG Oral Tablet YUNG ([facility]) Ondansetron 4 MG Oral Tablet YUNG ([facility]) silver sulfadiazine 10 MG/ML Topical Cream YUNG ([facility]) Penicillin V Potassium 500 MG Oral Tablet YUNG ([facility]) Ondansetron 4 MG Oral Tablet YUNG ([facility]) Levofloxacin 750 MG Oral Tablet YUNG ([facility]) ferrous sulfate 325 MG Oral Tablet YUNG ([facility]) Erythromycin 333 MG Delayed Release Oral Tablet YUNG ([facility]) Clindamycin 300 MG Oral Capsule YUNG ([facility]) Cephalexin 500 MG Oral Capsule YUNG ([facility]) silver sulfadiazine 10 MG/ML Topical Cream YUNG ([facility]) Penicillin V Potassium 500 MG Oral Tablet YUNG ([facility]) Metronidazole 500 MG Oral Tablet YUNG ([facility]) Levofloxacin 750 MG Oral Tablet YUNG ([facility]) Erythromycin 333 MG Delayed Release Oral Tablet YUNG ([facility]) doxycycline hyclate 100 MG Oral Tablet YUNG ([facility]) Clindamycin 300 MG Oral Capsule YUNG ([facility]) Cephalexin 500 MG Oral Capsule YUNG ([facility])
[2021-09-27] MEDS ORDERED: [UNRECOGNIZED DRUG - SUPPLY] (11:36)
[2021-09-27 13:14] VITALS: BP 134/68
== END 2021-09-27 13:14 | disposition home or self-care (01) ==
LOC: EDBD 09:45 → M ED 09:45
DX: S91.302A Unspecified open wound, left foot, initial encounter (principal); X58.XXXA Exposure to other specified factors, initial encounter; Y92.099 Unspecified place in other non-institutional residence as the place of occurrence of the external cause; Y93.9 Activity, unspecified; Y99.9 Unspecified external cause status; E11.9 Type 2 diabetes mellitus without complications; I10 Essential (primary) hypertension; Z86.711 Personal history of pulmonary embolism; Z91.19 Patient's noncompliance with other medical treatment and regimen; Z79.01 Long term (current) use of anticoagulants; Z79.82 Long term (current) use of aspirin; Z79.4 Long term (current) use of insulin; Z79.899 Other long term (current) drug therapy; Z88.8 Allergy status to other drugs, medicaments and biological substances

== ENCOUNTER → 2021-10-01 | Outpatient (REF) | payer MEDICARE, MEDICAID ==
[~2021-10-01] MED LIST changes: +[UNRECOGNIZED DRUG - SUPPLY]
== END ==
LOC: M LAB REF 16:20
PROVIDERS: ATTEND Physician Assistant
DX: E11.621 Type 2 diabetes mellitus with foot ulcer (principal); L97.422 Non-pressure chronic ulcer of left heel and midfoot with fat layer exposed; L97.522 Non-pressure chronic ulcer of other part of left foot with fat layer exposed

== ENCOUNTER → 2021-10-15 | Outpatient (REF) | payer MEDICARE, MEDICAID | LOC: M LAB REF 15:44 | PROVIDERS: ATTEND Surgery | DX: M86.172 Other acute osteomyelitis, left ankle and foot (principal); L97.522 Non-pressure chronic ulcer of other part of left foot with fat layer exposed ==

== ENCOUNTER → 2021-10-22 | Outpatient (REF) | payer MEDICARE, MEDICAID ==
[~2021-10-22] MED LIST changes: +ECOT81TA5 PO
== END ==
LOC: M LAB REF 17:45
PROVIDERS: ATTEND Surgery
DX: L97.524 Non-pressure chronic ulcer of other part of left foot with necrosis of bone (principal)

== ENCOUNTER 2021-11-10 16:16 | Inpatient (IN) | payer MEDICARE, MEDICAID ==
[~2021-11-10] VITALS: Ht 170.2 cm; Wt 123.0 kg
[~2021-11-10 16:16] MED LIST changes: -ECOT81TA5 PO
[2021-11-10 17:15] VITALS: BP 104/66
[2021-11-10] MEDS ORDERED: MOM 30ML SUSPENSION UDC PO PRN (17:20)
[2021-11-10] MEDS ORDERED: ELIQ5TAB PO (17:30)
[2021-11-10] MEDS ORDERED: LISI20TA33 PO (17:32)
[2021-11-10] MEDS ORDERED: LANTINJ4 SC (17:32)
[2021-11-10] MEDS ORDERED: ECOT81TA5 PO (17:32)
[2021-11-10] MEDS ORDERED: HOME MED LIST COMPLETE! XX SCH (17:35)
[2021-11-10 17:58] LABS: HEMATOCRIT 28.6 % (36.0-47.0); MEAN CORPUSCULAR HEMOGLOBIN 24.9 pg (27.0-33.0); MEAN CORPUSCULAR HGB CONC 31.5 g/dl (32.0-36.5); PLATELET COUNT, AUTOMATED 505 10^3/uL (150-450); RED BLOOD COUNT 3.62 10^6/uL (4.00-5.40); WHITE BLOOD COUNT 11.9 10^3/uL (4.0-10.0)
[2021-11-10 18:15] LABS: INR 1.27; PROTHROMBIN TIME 16.3 SECONDS (12.7-14.5)
[2021-11-10] MEDS ORDERED: GLUCAGON INJ 1MG VIAL SC PRN (18:15)
[2021-11-10] MEDS ORDERED: GLUCOSE 4GM CHEW TABLET PO PRN (18:15)
[2021-11-10] MEDS ORDERED: VANCOMYCIN HCL 1,000 MG, VIAL MATE ADAPTER 1 EACH in NS 250 ML IV SCH (18:15)
[2021-11-10] MEDS ORDERED: DEXTROSE 50% 50 ML SYRINGE IV PRN (18:15)
[2021-11-10 18:28] LABS: ALBUMIN 2.7 GM/DL (3.2-5.2); BILIRUBIN,TOTAL 0.4 MG/DL (0.2-1.0); CALCIUM LEVEL 9.3 MG/DL (8.8-10.2); CREATININE FOR GFR 1.12 MG/DL (0.55-1.30); GLOMERULAR FILTRATION RATE 52.5 (>45); POTASSIUM SERUM 4.6 MEQ/L (3.5-5.1); TOTAL PROTEIN 7.8 GM/DL (6.4-8.2)
--- NOTE | 2021-11-10 18:46 | HPEPDOC ---
General Date of Admission Nov 10, 2021 at 16:55 Date of Service: Nov 10, 2021 Chief Complaint The patient is a 61-year-old female admitted with a reason for visit of Left Foot Diabetic. 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 Montoya. The patient went to see Dr. Montoya and was found to have left foot abscess with osteomyelitis so was sent to the hospital for direct admission for IV antibiotics and requirement for surgical intervention. Patient reports that she has had ulcer in her left heel for se veral months and now also in left third toe for few weeks. She has been following with Dr. Nicholas and he has been debriding the wounds however they have not been healing. Now the foot is red and inflamed and swollen with increased discharge from the open wound. She has mild throbbing pain in the left foot about 2/10 in intensity reports that she has bad neuropathy so has poo r sensation. Home Medications Scheduled Apixaban (Eliquis) 5 Mg Tablet, 5 MG PO BID, (Reported) Aspirin (Ecotrin) 81 Mg Tablet.dr, 81 MG PO DAILY, (Reported) Docusate Sodium (Colace) 100 Mg Capsule, 100 MG PO QHS, (Reported) Insulin Glargine,Hum.rec.anlog (Lantus Solostar) 100 Unit/1 Ml Insuln.pen, 45 UNITS SC QAM, (Reported) Lisinopril (Lisinopril) 20 Mg Tablet, 20 MG PO DAILY, (Reported) Risperidone (Risperidone) 0.25 Mg Tablet, 0.25 MG PO QHS, (Reported) Allergies Coded Allergies: hydrochlorothiazide (Verified Allergy, Mild, 12/10/20) Past Medical History Medical History Mtaeo's disease with the limited mobility of the lower extremities Diabetes with peripheral neuropathy Left foot wound from 06/01/2020: Nonpressor chronic ulcer of the left heel and midfoot with fat layer exposed status post debridement Ischemic ulcer 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 status post amputation in of the third toe on 10/22/2021 followed by debridement of the amputation site wound on 10/29/2020 Right heel wound from 01/01/2021 2 01/12/2021 Hypertension Peripheral arterial disease with occlusion of left posterior tibial artery History of PE more than 15 years ago 06/23/2021 deep venous thrombosis on the right lower extremity Chronic venous stasis Surgical History 2 CSections Cholecystectomy Right heel debridement 01/03/2021 Left lower leg angioplasty 07/20/2021 and 09/17/2020 Right breast biopsy benign in 2014 Left third toe amputation at the wound clinic Family History Significant Family History: Diabetes (Mother), Hypertension FH of Hungtingtons disease on mother side Social History * Smoker: Denies Alcohol: Denies Drugs: denies A-FIB/CHADSVASC A-FIB History Current/History of A-Fib/PAF?: No Current PO Anticoag Therapy: Yes Review of Systems Constitutional: Denies: Chills, Fever, Night Sweats Eyes: Denies: Pain, Vision change ENT: Denies: Head Aches, Ear Pain, Dysphagia Skin: Reports: Lesions, Breakdown Pulmonary: Denies: Dyspnea, Cough Cardiovascular: Denies: Chest Pain, Palpitations, Orthopnea, Paroxysmal Noc. Dyspnea, Lt Headedness Gastrointestinal: Denies: Nausea, Vomiting, Abdominal Pain, Diarrhea Genitourinary: Denies: Dysuria, Frequency, Incontinence, Retention Hematologic: Denies: Bruising, Bleeding Excessively Neurological: Reports: Weakness, Incoordination Physical Examination General Exam: Positive: Alert, Cooperative, No Acute Distress Eye Exam: Positive: Conjunctiva & lids normal; Negative: Sclera icteric ENT Exam: Positive: Atraumatic, Mucous membr. 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 Montoya. The patient went to see Dr. Montoya and was found to have left foot abscess with osteomyelitis so was sent to the hospital for direct admission for IV antibiotics and requirement for surgical intervention. Left foot abscess and osteomyelitis Will order CBC, basic and blood cultures. Will start on Zosyn and Vanco. Plan for OR either tomorrow or the day after with Dr. Montoya. Will hold Eliquis for now. Diabetes with neuropathy Continue Levemir and lispro Fingersticks before meals and at bedtime Gooding's disease Patient has difficulty in ambulating and also has been difficulty in tra nsferring from commode to chair History of PE in the remote past and DVT in the right leg Will hold Eliquis for now as may go to the OR tomorrow Peripheral arterial disease Continue aspirin Hypertension Continue lisinopril Plan / VTE VTE Prophylaxis Ordered?: Yes Sydnie Flower MD Nov 10, 2021 17:32
[2021-11-10] MEDS ORDERED: VANCOMYCIN HCL 1,000 MG, VIAL MATE ADAPTER 1 EACH in NS 250 ML IV ONE ×2 (20:00→21:00)
[2021-11-10] MEDS: risperiDONE 0.5 MG TAB PO SCH (20:32)
[2021-11-10] MEDS: DOCUSATE SODIUM 100MG CAPSULE PO SCH (20:32)
[2021-11-10] MEDS: LEVEMIR (INSULIN DETEMIR) 1 UNITS/0.01ML SC SCH (20:33)
[2021-11-10] MEDS: HumaLOG INSULIN (NovoLOG) PER UNIT SC SCH (20:33)
[2021-11-10] MEDS: PIPERACILLIN/TAZOBACTAM SOD 3.375 GM in D5W MINI-BAG PLUS 50 ML IV SCH (20:34)
[2021-11-10 21:00] VITALS: BP 105/74
[2021-11-11] VITALS (7 sets, daily range): BP systolic 51–110; BP diastolic 45–59
[2021-11-11] MEDS: PIPERACILLIN/TAZOBACTAM SOD 3.375 GM in D5W MINI-BAG PLUS 50 ML IV SCH ×4 (00:50→20:27)
[2021-11-11] MEDS: VANCOMYCIN HCL 750 MG, VIAL MATE ADAPTER 1 EACH in NS 250 ML IV SCH ×4 (04:00→17:00)
[2021-11-11] MEDS: HumaLOG INSULIN (NovoLOG) PER UNIT SC SCH ×4 (07:30→20:53)
[2021-11-11 07:42] LABS: BASO % 0.5 % (0.0-1.0); EOS # 0.2 10^3/uL (0.0-0.5); EOS % 2.5 % (0.0-3.0); HEMATOCRIT 24.4 % (36.0-47.0); HEMOGLOBIN 7.5 g/dl (12.0-15.5); LYMPH # 1.6 10^3/uL (1.5-5.0); LYMPH % 19.6 % (24.0-44.0); MEAN CORPUSCULAR HEMOGLOBIN 24.7 pg (27.0-33.0); MEAN CORPUSCULAR HGB CONC 30.7 g/dl (32.0-36.5); MEAN CORPUSCULAR VOLUME 80.3 fl (80.0-96.0); MONO # 0.8 10^3/uL (0.0-0.8); MONO % 9.8 % (2.0-8.0); NEUTROPHILS # 5.6 10^3/uL (1.5-8.5); RED BLOOD COUNT 3.04 10^6/uL (4.00-5.40); WHITE BLOOD COUNT 8.4 10^3/uL (4.0-10.0)
[2021-11-11 08:01] LABS: BLOOD UREA NITROGEN 12 MG/DL (7-18); CALCIUM LEVEL 8.3 MG/DL (8.8-10.2); CARBON DIOXIDE LEVEL 22 MEQ/L (21-32); CHLORIDE LEVEL 106 MEQ/L (98-107); CREATININE FOR GFR 0.84 MG/DL (0.55-1.30); GLOMERULAR FILTRATION RATE > 60.0 (>45); GLUCOSE, FASTING 85 MG/DL (70-100); POTASSIUM SERUM 4.1 MEQ/L (3.5-5.1); SODIUM LEVEL 136 MEQ/L (136-145)
[2021-11-11] MEDS: LEVEMIR (INSULIN DETEMIR) 1 UNITS/0.01ML SC SCH ×2 (08:20→20:53)
[2021-11-11] MEDS: DOCUSATE SODIUM 100MG CAPSULE PO SCH ×2 (08:20→20:52)
[2021-11-11] MEDS: ASPIRIN 81MG ENTERIC TABLET PO SCH (08:20)
--- NOTE | 2021-11-11 09:22 | REP ---
INDICATION: osteomyelitis. COMPARISON: 06/02/2020 TECHNIQUE: Four views FINDINGS: The patient is status post amputation of the 5th digit and distal aspect of the 5th metatarsal. Significant decreased bony density has developed involving the heads of the 2nd through 4th metatarsals. The 3rd digit is not present. There is diffuse soft tissue swelling with abnormal air density seen within the soft tissues of the forefoot and midfoot. IMPRESSION: 1. There is plain radiographic evidence of osteomyelitis involving the distal aspects of the 2nd through 4th metatarsals as described above. In addition, the 3rd digit is no longer visualized. I have not been given recent surgical history. This finding needs to be correlated clinically. <Electronically signed by Woodrow Banuelos > 11/11/21 0911
--- NOTE | 2021-11-11 11:10 | IPNPDOC ---
Subjective Date Seen The patient was seen on 11/11/21. Subjective Chief Complaint/HPI Patient had a febrile episode of 101 last night. Denies any pain in the foot. No other complaints this morning. She will be going to the OR this afternoon. Objective Physical Examination General Exam: Positive: Alert, Cooperative, No Acute Distress Eye Exam: Positive: Conjunctiva & lids normal; Negative: Sclera icteric ENT Exam: Positive: Atraumatic, Mucous membr. 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 Montoya. The patient went to see Dr. Montoya and was found to have left foot abscess with osteomyelitis so was sent to the hospital for direct admission for IV antibiotics and requirement for surgical intervention. Left foot abscess and osteomyelitis Foot Xray osteomyelitis involving the distal aspects of the 2nd through 4th metatarsals. In addition, the 3rd digit is absent. On Zosyn and Vanco. Plan for OR on 11/11/21 with Lindsay. Will hold Eliquis for now. Anemia Hb down to 7.5 will transfuse if < 7.0 will continue to hold eliquis blood consent in chart. Diabetes with neuropathy Continue Levemir and lispro Fingersticks before meals and at bedtime Mateo's disease Patient has difficulty in ambulating and also has been difficulty in transferring from commode to chair History of PE in the remote past and DVT in the right leg eliquis on hold for OR and anemia. Peripheral arterial disease Continue aspirin Hypertension Continue lisinopril Plan/VTE VTE Prophylaxis Ordered?: Yes VS, I&O, 24H, Fishbone Vital Signs/I&O Vital Signs Date Time Temp Pulse Resp B/P (MAP) Pulse Ox O2 Delivery O2 Flow Rate FiO2 11/11/21 06:00 98.1 82 20 110/58 (75) 94 Room Air I&O- Last 24 Hours up to 6 AM 11/11/21 06:00 Intake Total 1095 ml Output Total 0 ml Balance 1095 ml Laboratory Data 24H LABS Laboratory Tests 2 11/10/21 17:33: Nucleated Red Blood Cells % (auto) 0.0, Prothrombin Time 16.3H, Prothromb Time International Ratio 1.27, Anion Gap 7L, Glomerular Filtration Rate 52.5, Lactic Acid Level 1.6, Calcium Level 9.3, Total Bilirubin 0.4, Aspartate Amino Transf (AST/SGOT) 5L, Alanine Aminotransferase (ALT/SGPT) 11L, Alkaline Phosphatase 86, Total Protein 7.8, Albumin 2.7L, Albumin/Globulin Ratio 0.5L, Procalcitonin 0.07 11/10/21 17:41: Coronavirus (COVID-19)(PCR) NEGATIVE 11/10/21 17:43: Methicillin-Resist S.aureus DNA PCR NOT DETECTED 11/10/21 19:34: Bedside Glucose (Misc Panel) 247H 11/11/21 07:20: Immature Granulocyte % (Auto) 0.6, Neutrophils (%) (Auto) 67.0H, Lymphocytes (%) (Auto) 19.6L, Monocytes (%) (Auto) 9.8H, Eosinophils (%) (Auto) 2.5, Basophils (%) (Auto) 0.5, Neutrophils # (Auto) 5.6, Lymphocytes # (Auto) 1.6, Monocytes # (Auto) 0.8, Eosinophils # (Auto) 0.2, Basophils # (Auto) 0.0, Nucleated Red Blood Cells % (auto) 0.4H, Anion Gap 8, Glomerular Filtration Rate > 60.0, Calcium Level 8.3L CBC/BMP Laboratory Tests 11/10/21 17:33 11/11/21 07:20 Microbiology Microbiology 11/10/21 Blood Culture, Received Pending 11/10/21 Blood Culture, Received Pending Sydnie Flower MD Nov 11, 2021 11:10
[2021-11-11] MEDS ORDERED: LIDOCAINE 1% SDV 30ML VIAL As Ordered ONE (15:10)
[2021-11-11] MEDS ORDERED: BUPIVACAINE HCL 0.5% 30 ML VIAL As Ordered ONE (15:11)
[2021-11-11] MEDS ORDERED: MIDAZOLAM INJ 2MG/2ML VIAL (J2250 PER 1MG) As Ordered ONE (16:00)
[2021-11-11] MEDS ORDERED: propofoL 200 MG/20 ML VIAL As Ordered ONE (16:01)
[2021-11-11] MEDS ORDERED: fentaNYL 100 MCG/2 ML INJECTION (J3010) As Ordered ONE (16:01)
[2021-11-11] MEDS ORDERED: LIDOCAINE 2% 100MG/5ML SDV (FOR ANES.) As Ordered ONE (16:04)
[2021-11-11] MEDS ORDERED: NS 500 ML IV ONE (16:25)
[2021-11-11 19:49] LABS: PLATELET COUNT, AUTOMATED 376 10^3/uL (150-450)
--- NOTE | 2021-11-11 20:17 | RO ---
OPERATIVE NOTE DATE OF OPERATION: 11/11/2021 PREOPERATIVE DIAGNOSIS: Left foot ulcer and osteomyelitis. POSTOPERATIVE DIAGNOSIS: Left foot ulcer and osteomyelitis. PROCEDURE: Left foot toe and metatarsal amputation. SURGEON: Nathaniel Montoya DPM VETERINARY POULTRY INSPECTOR: None. ANESTHESIA: Monitored anesthesia care. Preoperative injection of 20 mL of 1:1 mixture of 1% lidocaine plain, 0.5% Marcaine plain. ESTIMATED BLOOD LOSS: 10 mL. SPECIMENS: Toe and metatarsal bone. COMPLICATIONS: None. CONDITION: Stable. Digna Matos is a 59-year-old diabetic female who had ulceration, for which she was under care of at the wound care center. She had amputations of some of the toes but was noted to have continued infection. She was sent to my office. She was noted to have abscess within foot, and she was sent to the hospital for admission. She was started on intravenous (IV) antibiotics, and decision was made to bring her to the operating room for toe and bone amputation. Patient's side and site were identified and marked in the preoperative area. Consent was reviewed and obtained. All risks, complications, and alternatives to the procedure were explained to the patient in detail, and her questions were answered. DESCRIPTION OF PROCEDURE: Patient was brought to the operating room on the stretcher in the supine position. Monitored anesthesia care was delivered by the anesthesia team. Preoperative injection of 20 mL of 1:1 mixture of 1% lidocaine plain, 0.5% Marcaine plain was injected into the left ankle. The left foot was prepped and draped in the normal sterile fashion. Tourniquet was applied to the left ankle. Balloon was not used during the procedure. Foot was inspected. There was an open ulceration at the 3rd toe amputation site. There had been previous amputations of the left 3rd and 5th toes. There was necrotic tissue and purulence noted within the wound. An elliptical incision was made surrounding the 2nd toe through the 5th toe amputation site, and this was carried through with a #15 blade full thickness. The 2nd toe and 4th toe were disarticulated at the metatarsophalangeal joint, and then the remaining metatarsals 2, 3, and 4 were resected with sagittal saw and sent for pathology. There was purulent drainage tracking along the plantar fascia. Plantar fascia along this margin was excised. The site was irrigated until no further purulence was noted. Bovie was utilized to cauterize small bleeding vessels. Once no further nonviable tissue or purulence was noted, the wound was packed with saline gauze, dry sterile dressing, Sergio wrap. Patient was brought to postanesthesia care unit (PACU) with vital signs stable, neurovascular status intact. She will be readmitted to the floor for continued antibiotics. Depending on wound progression, may plan closure or partial closure later this motion. Will follow.
[2021-11-11 20:45] LABS: HEMATOCRIT 25.4 % (36.0-47.0); HEMOGLOBIN 7.9 g/dl (12.0-15.5)
[2021-11-11] MEDS: risperiDONE 0.5 MG TAB PO SCH (20:52)
[2021-11-12] VITALS (20 sets, daily range): BP systolic 98–142; BP diastolic 42–64
[2021-11-12] MEDS: ACETAMINOPHEN TAB 650MG DOSE (2X325MG) PO PRN (01:52)
[2021-11-12] MEDS: PIPERACILLIN/TAZOBACTAM SOD 3.375 GM in D5W MINI-BAG PLUS 50 ML IV SCH ×3 (02:17→12:43)
[2021-11-12] MEDS: ASPIRIN 81MG ENTERIC TABLET PO SCH (08:42)
[2021-11-12] MEDS: DOCUSATE SODIUM 100MG CAPSULE PO SCH ×2 (08:42→20:09)
[2021-11-12] MEDS: HumaLOG INSULIN (NovoLOG) PER UNIT SC SCH ×4 (08:44→20:10)
[2021-11-12] MEDS: LEVEMIR (INSULIN DETEMIR) 1 UNITS/0.01ML SC SCH ×2 (08:44→20:10)
[2021-11-12 09:26] LABS: BASO # 0.1 10^3/uL (0.0-0.2); BASO % 0.6 % (0.0-1.0); EOS # 0.2 10^3/uL (0.0-0.5); EOS % 2.2 % (0.0-3.0); HEMATOCRIT 29.2 % (36.0-47.0); HEMOGLOBIN 9.1 g/dl (12.0-15.5); LYMPH # 1.5 10^3/uL (1.5-5.0); LYMPH % 17.1 % (24.0-44.0); MEAN CORPUSCULAR HEMOGLOBIN 25.2 pg (27.0-33.0); MEAN CORPUSCULAR HGB CONC 31.2 g/dl (32.0-36.5); MEAN CORPUSCULAR VOLUME 80.9 fl (80.0-96.0); MONO # 0.9 10^3/uL (0.0-0.8); MONO % 9.9 % (2.0-8.0); NEUTROPHILS % 69.8 % (36.0-66.0); PLATELET COUNT, AUTOMATED 413 10^3/uL (150-450); RED BLOOD COUNT 3.61 10^6/uL (4.00-5.40); WHITE BLOOD COUNT 8.6 10^3/uL (4.0-10.0)
[2021-11-12 09:49] LABS: BLOOD UREA NITROGEN 12 MG/DL (7-18); CALCIUM LEVEL 8.4 MG/DL (8.8-10.2); CARBON DIOXIDE LEVEL 27 MEQ/L (21-32); CHLORIDE LEVEL 103 MEQ/L (98-107); CREATININE FOR GFR 0.99 MG/DL (0.55-1.30); GLOMERULAR FILTRATION RATE > 60.0 (>45); GLUCOSE, FASTING 146 MG/DL (70-100); POTASSIUM SERUM 4.1 MEQ/L (3.5-5.1); SODIUM LEVEL 134 MEQ/L (136-145)
[2021-11-12] MEDS ORDERED: VANCOMYCIN HCL 1,000 MG, VIAL MATE ADAPTER 1 EACH in NS 250 ML IV SCH (10:00)
[2021-11-12] MEDS ORDERED: VANCOMYCIN HCL 750 MG, VIAL MATE ADAPTER 1 EACH in NS 250 ML IV SCH ×2 (10:00→11:00)
--- NOTE | 2021-11-12 13:37 | IPNPDOC ---
Text Note Date of Service The patient was seen on 11/12/21. NOTE Subjective: -Afebrile -Had L foot 2-4 metatarsal amputations and plantar fascia I&D by Dr. Montoya -No new events overnight Objective Vitals: see below General: Alert, Cooperative, No Acute Distress Eyes: Conjunctiva & lids normal, anicteric ENT: Atraumatic, Mucous membr. moist/pink, Pharynx Normal Neck: Supple, no JVD, no thyromegaly Chest: Clear to auscultation, Normal air movement, on 2L NC this AM Heart: Rate Normal, Regular Rhythm, no m/r/g Abdomen: Normal bowel sounds, soft, NTND Extremities: no noted edema, L foot in postop bandaging with c/d/i bandage. Psych: Alert and oriented x 3 Labs: Hgb 9.1 Assessment: 61-year-old W with [place]'s disease, diabetes with peripheral neuropathy, PAD, chronic venous stasis, hypertension with a history of chronic left foot wounds and was admitted per recommendation of podiatry with left foot abscess with osteomyelitis now s/p L foot 2-4 metatarsal amputations and plantar fascia I&D by Dr. Montoya on 11/11 and remains on IV antibiotics with podiatry closely following. Left foot abscess and osteomyelitis -Foot Xray osteomyelitis involving the distal aspects of the 2nd through 4th metatarsals. In addition, the 3rd digit is absent. -now s/p L foot 2-4 metatarsal amputations and plantar fascia I&D by Dr. Montoya on 11/11 and remains on IV antibiotics with podiatry closely following. -Spoke with Dr. Montoya, in office culture showed methicillin sensitive staph. Stop Vanc and piptazo and switch to ancef 2g Q8H. Expect that she will return to the OR in a few days for closing -Eliquis was held for surgery.Will restart at this time Anemia -Transfuse if < 7.0 -restart eliquis -blood consent in chart. -daily CBC Diabetes with neuropathy -Continue Levemir and lispro -Fingersticks before meals and at bedtime [place]'s disease -Patient has difficulty in ambulating and also has been difficulty in transferring from commode to chair -PT/OT History of PE in the remote past and DVT in the right leg -continue eliquis Peripheral arterial disease -Continue aspirin Hypertension -Continue lisinopril VS,Fishbone, I+O VS, Fishbone, I+O Laboratory Tests 11/11/21 20:30 Vital Signs Date Time Temp Pulse Resp B/P (MAP) Pulse Ox O2 Delivery O2 Flow Rate FiO2 11/12/21 06:51 98.1 69 98 11/12/21 06:50 16 142/62 Nasal Cannula 2.0 I&O- Last 24 Hours up to 6 AM 11/12/21 05:59 Intake Total 2395 ml Balance 2395 ml JANAK GODOY MD Nov 12, 2021 07:57
[2021-11-12] MEDS: APIXABAN 5 MG TAB (ELIQUIS) PO SCH ×2 (14:14→20:09)
[2021-11-12] MEDS: ceFAZolin SOD 2 GM in IV 1 EA IV SCH (20:10)
[2021-11-12] MEDS: risperiDONE 0.5 MG TAB PO SCH (20:10)
[2021-11-12] MEDS ORDERED: DOCUSATE SODIUM 100MG CAPSULE PO SCH (21:00)
--- NOTE | 2021-11-12 21:31 | REPVR ---
PROCEDURE INFORMATION: Exam: CT Head Without Contrast Exam date and time: 11/12/2021 8:51 PM Age: 61 years old Clinical indication: Altered mental status/memory loss; Confusion or disorientation; Additional info: Confusion, neuro change , on blood thinners TECHNIQUE: Imaging protocol: Computed tomography of the head without contrast. Radiation optimization: All CT scans at this facility use at least one of these dose optimization techniques: automated exposure control; mA and/or kV adjustment per patient size (includes targeted exams where dose is matched to clinical indication); or iterative reconstruction. COMPARISON: MRI-Brain without Contrast 12/18/2019 8:28 AM FINDINGS: Brain: There is moderate parenchymal volume loss. White matter changes are demonstrated in the subcortical, centrum semiovale and periventricular white matter consistent with chronic age related small vessel ischemic changes. Cerebral ventricles: The degree of ventricular dilatation is normal for age and/or degree of atrophy present. Paranasal sinuses: Visualized sinuses are unremarkable. No fluid levels. Mastoid air cells: Visualized mastoid air cells are well aerated. Bones/joints: Unremarkable. No acute fracture. Soft tissues: Unremarkable. IMPRESSION: 1. There is moderate parenchymal volume loss. White matter changes are demonstrated in the subcortical, centrum semiovale and periventricular white matter consistent with chronic age related small vessel ischemic changes. 2. The degree of ventricular dilatation is normal for age and/or degree of atrophy present. Electronically signed by: Rigo Fox On 11/12/2021 21:31:08 PM
[2021-11-12 21:33] LABS: BASO # 0.1 10^3/uL (0.0-0.2); BASO % 0.4 % (0.0-1.0); EOS # 0.1 10^3/uL (0.0-0.5); EOS % 0.8 % (0.0-3.0); HEMATOCRIT 26.6 % (36.0-47.0); HEMOGLOBIN 8.2 g/dl (12.0-15.5); LYMPH # 1.3 10^3/uL (1.5-5.0); LYMPH % 11.9 % (24.0-44.0); MEAN CORPUSCULAR HGB CONC 30.8 g/dl (32.0-36.5); MEAN CORPUSCULAR VOLUME 81.1 fl (80.0-96.0); MONO # 0.9 10^3/uL (0.0-0.8); MONO % 8.1 % (2.0-8.0); NEUTROPHILS # 8.9 10^3/uL (1.5-8.5); NEUTROPHILS % 78.4 % (36.0-66.0); PLATELET COUNT, AUTOMATED 383 10^3/uL (150-450); RED BLOOD COUNT 3.28 10^6/uL (4.00-5.40); WHITE BLOOD COUNT 11.3 10^3/uL (4.0-10.0)
[2021-11-12 23:13] LABS: ALBUMIN 2.1 GM/DL (3.2-5.2); ALT/SGPT 10 U/L (12-78); BILIRUBIN,TOTAL 0.6 MG/DL (0.2-1.0); BLOOD UREA NITROGEN 14 MG/DL (7-18); CARBON DIOXIDE LEVEL 25 MEQ/L (21-32); CHLORIDE LEVEL 100 MEQ/L (98-107); CREATININE FOR GFR 0.91 MG/DL (0.55-1.30); GLOMERULAR FILTRATION RATE > 60.0 (>45); GLUCOSE, FASTING 189 MG/DL (70-100); MAGNESIUM LEVEL 1.4 MG/DL (1.8-2.4); POTASSIUM SERUM 4.2 MEQ/L (3.5-5.1); SODIUM LEVEL 132 MEQ/L (136-145); TOTAL PROTEIN 5.7 GM/DL (6.4-8.2)
--- NOTE | 2021-11-12 23:44 | IPNPDOC ---
Text Note Date of Service The patient was seen on 11/12/21. NOTE Notify patient with new onset confusion. Patient seen at bedside, she is a poor historian, oriented x2. She endorses that she feels "off" and confused. Patient having trouble following commands/directions. She can purposefully move all 4 extremities and denies sensory changes. Pt denies avalos, sob, or cp. She is unable to say if she has strabismus of her left eye. She is having trouble elaborating/ expressing herself. When asked to stick out her tongue she does have a deviation. Blood glucose 176. BP 120/50, heart rate 93, regular rhythm, respiratory rate 20, diminished bilateral bases, 2 L nasal cannula and pulse ox 93. Patient does appear hypervolemic with factor of body habitus. Patient is on blood thinners. Although, lower suspicion for acute CVA patient is on OAC and CT head ordered as well as metabolic work-up for encephalopathy. Update: CT head nonacute but did show moderate parenchymal volume loss. Initial lab work completed with no lactic acidosis, sodium 132, mag 1.4, ammonia 18, TSH 1.1, B12 pending. Will replete magnesium. Will place patient on delirium precautions, consider differential and continue to monitor. VS,Fishbone, I+O VS, Fishbone, I+O Laboratory Tests 11/12/21 08:59 11/12/21 09:00 11/12/21 21:19 Vital Signs Date Time Temp Pulse Resp B/P (MAP) Pulse Ox O2 Delivery O2 Flow Rate FiO2 11/12/21 22:00 99.9 93 20 120/50 (73) 93 Nasal Cannula 2.0 I&O- Last 24 Hours up to 6 AM 11/12/21 06:00 Intake Total 2395 ml Balance 2395 ml HONG WALTER NP Nov 12, 2021 23:44 NIMESH ARMANDO MD Nov 13, 2021 00:24
[2021-11-13] MEDS: MAGNESIUM OXIDE 400MG TAB (MAG-OX) PO SCH ×2 (00:08→09:09)
[2021-11-13] MEDS: ceFAZolin SOD 2 GM in IV 1 EA IV SCH ×3 (05:13→20:58)
[2021-11-13 06:00] VITALS: BP 127/47
[2021-11-13 06:23] LABS: BASO % 0.4 % (0.0-1.0); EOS # 0.2 10^3/uL (0.0-0.5); EOS % 2.2 % (0.0-3.0); HEMATOCRIT 27.5 % (36.0-47.0); HEMOGLOBIN 8.5 g/dl (12.0-15.5); LYMPH # 1.9 10^3/uL (1.5-5.0); LYMPH % 19.8 % (24.0-44.0); MEAN CORPUSCULAR HEMOGLOBIN 25.4 pg (27.0-33.0); MEAN CORPUSCULAR HGB CONC 30.9 g/dl (32.0-36.5); MEAN CORPUSCULAR VOLUME 82.1 fl (80.0-96.0); MONO # 0.9 10^3/uL (0.0-0.8); MONO % 9.4 % (2.0-8.0); NEUTROPHILS # 6.7 10^3/uL (1.5-8.5); NEUTROPHILS % 67.8 % (36.0-66.0); PLATELET COUNT, AUTOMATED 369 10^3/uL (150-450); RED BLOOD COUNT 3.35 10^6/uL (4.00-5.40); WHITE BLOOD COUNT 9.8 10^3/uL (4.0-10.0)
[2021-11-13 07:07] LABS: BLOOD UREA NITROGEN 12 MG/DL (7-18); CALCIUM LEVEL 8.5 MG/DL (8.8-10.2); CARBON DIOXIDE LEVEL 24 MEQ/L (21-32); CHLORIDE LEVEL 101 MEQ/L (98-107); CREATININE FOR GFR 0.88 MG/DL (0.55-1.30); GLOMERULAR FILTRATION RATE > 60.0 (>45); GLUCOSE, FASTING 91 MG/DL (70-100); POTASSIUM SERUM 3.7 MEQ/L (3.5-5.1); SODIUM LEVEL 133 MEQ/L (136-145)
[2021-11-13] MEDS: HumaLOG INSULIN (NovoLOG) PER UNIT SC SCH ×4 (07:30→20:52)
[2021-11-13] MEDS: ASPIRIN 81MG ENTERIC TABLET PO SCH (09:09)
[2021-11-13] MEDS: LEVEMIR (INSULIN DETEMIR) 1 UNITS/0.01ML SC SCH ×2 (09:09→20:59)
[2021-11-13] MEDS: DOCUSATE SODIUM 100MG CAPSULE PO SCH ×2 (09:09→20:59)
[2021-11-13] MEDS: APIXABAN 5 MG TAB (ELIQUIS) PO SCH ×2 (09:09→20:59)
--- NOTE | 2021-11-13 13:59 | IPNPDOC ---
Text Note Date of Service The patient was seen on 11/13/21. NOTE Subjective: -No new events -Overnight was suspected to have some cognitive slowing with slow to answer but otherwise nonfocal with clear speech, so she had ammonia drawn that was wnl, CT head that showed no bleeding and this morning the exam is stable. Objective Vitals: see below General: Alert, Cooperative, No Acute Distress Eyes: Conjunctiva & lids normal, anicteric ENT: Atraumatic, Mucous membr. moist/pink, Pharynx Normal Neck: Supple, no JVD, no thyromegaly Chest: Clear to auscultation, Normal air movement, on 2L NC this AM Heart: Rate Normal, Regular Rhythm, no m/r/g Abdomen: Normal bowel sounds, soft, NTND Extremities: no noted edema, L foot in postop bandaging with c/d/i bandage. Psych: Alert and oriented x 3 Labs: WBC 9.8 hgb 8.5 platelets 369 na 133 K 3.7 Cr 0.88 Assessment: 61-year-old W with [place]'s disease, diabetes with peripheral neuropathy, P AD, chronic venous stasis, hypertension with a history of chronic left foot wounds and was admitted per recommendation of podiatry with left foot abscess with osteomyelitis now s/p L foot 2-4 metatarsal amputations and plantar fascia I&D by Dr. Montoya on 11/11 and remains on IV antibiotics with podiatry closely following. Left foot abscess and osteomyelitis -Foot Xray osteomyelitis involving the distal aspects of the 2nd through 4th metatarsals. In addition, the 3rd digit is absent. -now s/p L foot 2-4 metatarsal amputations and plantar fascia I&D by Dr. Montoya on 11/11 and remains on IV antibiotics with podiatry closely following. -Spoke with Dr. Montoya, in office culture showed methicillin sensitive staph. Stopped Vanc and piptazo and switched to ancef 2g Q8H on 11/12. Expect that she will return to the OR in a few days for closing -Eliquis was held for surgery, was restarted on 11/12 Anemia: stable -Transfuse if < 7.0 -restarted eliquis on 11/12 -blood consent in chart. -daily CBC Diabetes with neuropathy -Continue Levemir (reduced to 15 BID) and lispro SSI -Fingersticks before meals and at bedtime Mateo's disease -Patient has difficulty in ambulating and also has been difficulty in transferring from commode to chair -PT/OT History of PE in the remote past and DVT in the right leg -continue eliquis Peripheral arterial disease -Continue aspirin Hypertension -Continue lisinopril VS,Fishbone, I+O VS, Fishbone, I+O Laboratory Tests 11/12/21 21:19 11/13/21 06:12 Vital Signs Date Time Temp Pulse Resp B/P (MAP) Pulse Ox O2 Delivery O2 Flow Rate FiO2 11/13/21 06:00 99.1 78 20 127/47 (73) 95 Nasal Cannula 2.0 I&O- Last 24 Hours up to 6 AM 11/13/21 06:00 Intake Total 2290 ml Balance 2290 ml JANAK GODOY MD Nov 13, 2021 09:04
[2021-11-13 14:00] VITALS: BP 125/87
--- NOTE | 2021-11-13 15:27 | IPN ---
PROGRESS NOTE DATE: 11/12/2021 Patient seen and examined at bedside. Denies overnight complaints. She has remained afebrile. LABORATORY DATA: White blood cell count is 11.3. LOWER EXTREMITY EXAMINATION: Erythema and edema are improved. There is no purulence noted in the wound. ASSESSMENT: A 61-year-old diabetic female with osteomyelitis, status post toe amputation, bone resection. PLAN: Continue antibiotics. Await culture results. Will plan to bring her back to the operating room on Monday for wound rinse-out and wound closure.
[2021-11-13] MEDS: risperiDONE 0.5 MG TAB PO SCH (20:59)
[2021-11-13] MEDS: ACETAMINOPHEN TAB 650MG DOSE (2X325MG) PO PRN (20:59)
[2021-11-13 22:00] VITALS: BP 110/51
[2021-11-14] VITALS (8 sets, daily range): BP systolic 106–142; BP diastolic 58–72
[2021-11-14] MEDS: ceFAZolin SOD 2 GM in IV 1 EA IV SCH ×3 (05:35→20:32)
[2021-11-14] MEDS: HumaLOG INSULIN (NovoLOG) PER UNIT SC SCH ×4 (07:30→20:31)
[2021-11-14] MEDS ORDERED: LIDOCAINE 1% MDV 20ML VIAL As Ordered ONE (07:50)
[2021-11-14] MEDS ORDERED: BUPIVACAINE HCL 0.5% 10ML VIAL As Ordered ONE (07:50)
[2021-11-14] MEDS ORDERED: fentaNYL 100 MCG/2 ML INJECTION (J3010) As Ordered ONE (08:01)
[2021-11-14] MEDS ORDERED: LIDOCAINE 2% 100MG/5ML SDV (FOR ANES.) As Ordered ONE (08:01)
[2021-11-14] MEDS ORDERED: propofoL 200 MG/20 ML VIAL As Ordered ONE (08:01)
[2021-11-14] MEDS ORDERED: MIDAZOLAM INJ 2MG/2ML VIAL (J2250 PER 1MG) As Ordered ONE (08:01)
--- NOTE | 2021-11-14 10:03 | RO ---
OPERATIVE NOTE DATE OF OPERATION: 11/14/2021 PREOPERATIVE DIAGNOSIS: Left foot wound and infection. POSTOPERATIVE DIAGNOSIS: Left foot wound and infection. PROCEDURE: Left foot irrigation and drainage with partial wound closure. SURGEON: Nathaniel Montoya DPM PEDAL ASSEMBLER: None ANESTHESIA: Monitored anesthesia care with preop injection of 15 mL of a 1:1 mixture of 1% lidocaine plain, 1/2% Marcaine plain. ESTIMATED BLOOD LOSS: 10 mL MATERIALS: 3-0 nylon. INJECTABLES: None. SPECIMENS: None. COMPLICATION: None. CONDITION: Stable. INDICATIONS: Digna Matos is a 61-year-old female who is admitted with a left foot infection. She had toe amputations and bone removal. She presents today for irrigation and partial wound closure. The patient's side and site were identified and marked in the preoperative area. Consent was reviewed and obtained. The risks, complications and alternatives to the procedure were explained to the patient in detail and all questions were answered. DESCRIPTION OF PROCEDURE: The patient was brought to the operating room stretcher in supine position. Monitored anesthesia care was delivered by the anesthesia team. A preop injection of 15 mL of a 1:1 mixture of 1% lidocaine plain and 1/2% Marcaine plain were injected into the left foot. The left foot was prepped and draped in normal sterile fashion. No tourniquet was used during the procedure. The wound was inspected. There was noted to be some purulence along the plantar medial, first metatarsal. Some nonviable tissue was removed with a #15 blade and rongeur. The site was irrigated with normal saline. Once no further purulent drainage was noted, the lateral portion of the wound was closed with 3-0 nylon and the medial wound was packed with saline gauze. Dressings were applied. The patient was brought to the PACU with vital signs stable, neurovascular status intact. She will be readmitted to the floor for antibiotics.
[2021-11-14] MEDS: LEVEMIR (INSULIN DETEMIR) 1 UNITS/0.01ML SC SCH ×2 (10:43→20:33)
[2021-11-14] MEDS: ASPIRIN 81MG ENTERIC TABLET PO SCH (10:43)
[2021-11-14] MEDS: DOCUSATE SODIUM 100MG CAPSULE PO SCH ×2 (10:43→20:32)
[2021-11-14 11:19] LABS: BASO % 0.6 % (0.0-1.0); EOS # 0.2 10^3/uL (0.0-0.5); EOS % 3.3 % (0.0-3.0); HEMATOCRIT 30.8 % (36.0-47.0); HEMOGLOBIN 9.5 g/dl (12.0-15.5); LYMPH % 15.8 % (24.0-44.0); MEAN CORPUSCULAR HEMOGLOBIN 25.1 pg (27.0-33.0); MEAN CORPUSCULAR HGB CONC 30.8 g/dl (32.0-36.5); MEAN CORPUSCULAR VOLUME 81.3 fl (80.0-96.0); MONO # 0.6 10^3/uL (0.0-0.8); MONO % 8.5 % (2.0-8.0); NEUTROPHILS # 4.6 10^3/uL (1.5-8.5); NEUTROPHILS % 71.3 % (36.0-66.0); PLATELET COUNT, AUTOMATED 457 10^3/uL (150-450); RED BLOOD COUNT 3.79 10^6/uL (4.00-5.40); WHITE BLOOD COUNT 6.4 10^3/uL (4.0-10.0)
[2021-11-14 11:46] LABS: BLOOD UREA NITROGEN 11 MG/DL (7-18); CALCIUM LEVEL 8.8 MG/DL (8.8-10.2); CARBON DIOXIDE LEVEL 27 MEQ/L (21-32); CHLORIDE LEVEL 102 MEQ/L (98-107); CREATININE FOR GFR 0.81 MG/DL (0.55-1.30); GLOMERULAR FILTRATION RATE > 60.0 (>45); GLUCOSE, FASTING 118 MG/DL (70-100); POTASSIUM SERUM 4.2 MEQ/L (3.5-5.1); SODIUM LEVEL 135 MEQ/L (136-145)
--- NOTE | 2021-11-14 16:45 | IPNPDOC ---
Text Note Date of Service The patient was seen on 11/14/21. NOTE Subjective: -No new events -R arm hematoma from traumatic IV placement in the OR is much larger this morning. She denies any pain or tingling in the arm and hand. -NPO for OR for closure this AM Objective: Vitals: see below General: Alert, Cooperative, No Acute Distress Eyes: Conjunctiva & lids normal, anicteric ENT: Atraumatic, Mucous membr. moist/pink, Pharynx Normal Neck: Supple, no JVD, no thyromegaly Chest: Clear to auscultation, Normal air movement, on 2L NC this AM Heart: Rate Normal, Regular Rhythm, no m/r/g Abdomen: Normal bowel sounds, soft, NTND Extremities: no noted edema, L foot in postop bandaging with c/d/i bandage. Psych: Alert and oriented x 3 Labs: pending AM labs Assessment: 61-year-old W with [place]'s disease, diabetes with peripheral neuropathy, PAD, chronic venous stasis, hypertension with a history of chronic left foot wounds and was admitted per recommendation of podiatry with left foot abscess with osteomyelitis now s/p L foot 2-4 metatarsal amputations and plantar fascia I&D by Dr. Montoya on 11/11 and remains on IV antibiotics with podiatry closely following. Left foot abscess and osteomyelitis -Foot Xray osteomyelitis involving the distal aspects of the 2nd through 4th metatarsals. In addition, the 3rd digit is absent. -now s/p L foot 2-4 metatarsal amputations and plantar fascia I&D by Dr. Montoya on 11/11 and remains on IV antibiotics with podiatry closely following. -Spoke with Dr. Montoya, in office culture showed methicillin sensitive staph. Stopped Vanc and piptazo and switched to ancef 2g Q8H on 11/12. OR this morning for closure -Eliquis held Anemia: stable -Transfuse if < 7.0 -restarted eliquis on 11/12. Will hold given ongoing R arm hematoma from traumatic IV placement -blood consent in chart. -daily CBC R arm hematoma from traumatic IV placement: -still expanding, so will hold eliquis for now. check CBC this AM Diabetes with neuropathy -Continue Levemir (reduced to 15 BID) and lispro SSI -Fingersticks before meals and at bedtime [place]ar[place]'s disease -Patient has difficulty in ambulating and also has been difficulty in transferring from commode to chair -PT/OT History of PE in the remote past and DVT in the right leg -Holding eliquis Peripheral arterial disease -Continue aspirin Hypertension -Continue lisinopril VS,Fishbone, I+O VS, Fishbone, I+O Vital Signs Date Time Temp Pulse Resp B/P (MAP) Pulse Ox O2 Delivery O2 Flow Rate FiO2 11/14/21 06:00 97.1 77 18 118/58 (78) 99 Room Air 11/13/21 21:00 0.0 I&O- Last 24 Hours up to 6 AM 11/14/21 06:00 Intake Total 1300 ml Balance 1300 ml JANAK GODOY MD Nov 14, 2021 09:05
[2021-11-14] MEDS: risperiDONE 0.5 MG TAB PO SCH (20:32)
[2021-11-15] MEDS: ceFAZolin SOD 2 GM in IV 1 EA IV SCH ×3 (04:26→21:50)
[2021-11-15 06:00] VITALS: BP 110/63
[2021-11-15 06:22] LABS: BASO % 0.5 % (0.0-1.0); EOS # 0.2 10^3/uL (0.0-0.5); EOS % 3.9 % (0.0-3.0); HEMATOCRIT 27.6 % (36.0-47.0); HEMOGLOBIN 8.6 g/dl (12.0-15.5); LYMPH # 1.6 10^3/uL (1.5-5.0); LYMPH % 25.7 % (24.0-44.0); MEAN CORPUSCULAR HEMOGLOBIN 25.1 pg (27.0-33.0); MEAN CORPUSCULAR HGB CONC 31.2 g/dl (32.0-36.5); MEAN CORPUSCULAR VOLUME 80.5 fl (80.0-96.0); MONO # 0.6 10^3/uL (0.0-0.8); MONO % 9.5 % (2.0-8.0); NEUTROPHILS # 3.7 10^3/uL (1.5-8.5); NEUTROPHILS % 60.1 % (36.0-66.0); PLATELET COUNT, AUTOMATED 418 10^3/uL (150-450); RED BLOOD COUNT 3.43 10^6/uL (4.00-5.40); WHITE BLOOD COUNT 6.1 10^3/uL (4.0-10.0)
[2021-11-15 06:52] LABS: BLOOD UREA NITROGEN 10 MG/DL (7-18); CALCIUM LEVEL 8.5 MG/DL (8.8-10.2); CARBON DIOXIDE LEVEL 28 MEQ/L (21-32); CHLORIDE LEVEL 102 MEQ/L (98-107); CREATININE FOR GFR 0.75 MG/DL (0.55-1.30); GLOMERULAR FILTRATION RATE > 60.0 (>45); GLUCOSE, FASTING 86 MG/DL (70-100); POTASSIUM SERUM 3.9 MEQ/L (3.5-5.1); SODIUM LEVEL 134 MEQ/L (136-145)
[2021-11-15] MEDS: HumaLOG INSULIN (NovoLOG) PER UNIT SC SCH ×4 (07:30→21:00)
[2021-11-15 09:38] LABS: VITAMIN B12 LEVEL 431 PG/ML (247-911)
[2021-11-15] MEDS: ASPIRIN 81MG ENTERIC TABLET PO SCH (09:46)
[2021-11-15] MEDS: LEVEMIR (INSULIN DETEMIR) 1 UNITS/0.01ML SC SCH ×2 (09:47→21:49)
[2021-11-15] MEDS: DOCUSATE SODIUM 100MG CAPSULE PO SCH ×2 (09:47→21:49)
--- NOTE | 2021-11-15 13:02 | IPNPDOC ---
Text Note Date of Service The patient was seen on 11/15/21. NOTE Subjective: -No new events -R arm hematoma now stable, no extension from boundary Objective: Vitals: see below General: Alert, Cooperative, No Acute Distress Eyes: Conjunctiva & lids normal, anicteric ENT: Atraumatic, Mucous membr. moist/pink, Pharynx Normal Neck: Supple, no JVD, no thyromegaly Chest: Clear to auscultation, Normal air movement, on room air Heart: Rate Normal, Regular Rhythm, no m/r/g Abdomen: Normal bowel sounds, soft, NTND Extremities: no noted edema, L foot in postop bandaging with c/d/i bandage. Psych: Alert and oriented x 3 Labs: WBC 6.1 hgb 8.6 platelets 418 na 134 K 3.9 Cr 0.75 Wound culture from 11/10 grew MSSA BCx NGTD Assessment: 61-year-old W with [place]'s disease, diabetes with peripheral neuropathy, PAD, chronic venous stasis, hypertension with a history of chronic left foot wounds and was admitted per recommendation of podiatry with left foot abscess with osteomyelitis now s/p L foot 2-4 metatarsal amputations and plantar fascia I&D by Dr. Montoya on 11/11 and closing on 11/14 who remains on IV ancef. Left foot abscess and osteomyelitis -Foot Xray osteomyelitis involving the distal aspects of the 2nd through 4th metatarsals. In addition, the 3rd digit is absent. -now s/p L foot 2-4 metatarsal amputations and plantar fascia I&D by Dr. Montoya on 11/11 and and closing on 11/14 who remains on IV ancef. Podiatry following -Spoke with Dr. Montoya, in office culture showed MSSA. Stopped Vanc and piptazo and switched to ancef 2g Q8H on 11/12. -s/p closing however with small area left open, consulted for ID for route and duration of antibiotics -Eliquis held for arm hematoma Anemia: stable -Transfuse if < 7.0 -Held eliquis given R arm hematoma from traumatic IV placement -blood consent in chart. -daily CBC R arm hematoma from traumatic IV placement: -will restart eliquis tomorrow AM. Diabetes with neuropathy -Continue Levemir (reduced to 15 BID) and lispro SSI -Fingersticks before meals and at bedtime [place]'s disease -Patient has difficulty in ambulating and also has been difficulty in transferring from commode to chair -PT/OT History of PE in the remote past and DVT in the right leg -Holding eliquis, to restart tomorrow AM Peripheral arterial disease -Continue aspirin Hypertension -Continue lisinopril VS,Fishbone, I+O VS, Fishbone, I+O Laboratory Tests 11/14/21 11:05 11/15/21 05:57 Vital Signs Date Time Temp Pulse Resp B/P (MAP) Pulse Ox O2 Delivery O2 Flow Rate FiO2 11/15/21 06:00 98.8 78 18 110/63 (79) 97 Room Air 11/13/21 21:00 0.0 I&O- Last 24 Hours up to 6 AM 11/15/21 05:59 Intake Total 640 ml Balance 640 ml JANAK GODOY MD Nov 15, 2021 08:15
[2021-11-15 14:00] VITALS: BP 125/54
[2021-11-15 16:09] LABS: C REACTIVE PROTEIN QUANTITATIV 7.43 MG/DL (0.00-0.30)
[2021-11-15] MEDS: ACETAMINOPHEN TAB 650MG DOSE (2X325MG) PO PRN (19:49)
[2021-11-15 20:00] VITALS: BP 172/90
--- NOTE | 2021-11-15 20:54 | IPN ---
PROGRESS NOTE DATE: 11/15/2021 SUBJECTIVE: The patient has been seen and examined. She denies overnight complaints. Vital signs are reviewed. She has remained afebrile. OBJECTIVE: PHYSICAL EXAMINATION: EXTREMITIES: Lower extremity examination - erythema and edema are reduced. Wound bed is examined and there is no further purulent tissue. LABORATORY STUDIES: Labs are reviewed. White blood cell count is 6.1. ASSESSMENT: A 61-year-old female with osteomyelitis, status post bone resection, partial wound closure. PLAN: 1. Continue Vashe and Hydrofera Blue dressings. 2. Infectious Disease has been consulted. 3. The patient can be discharged once appropriate antibiotic plans are implemented. As such, I believe, she can be discharged on an oral agent with 6 weeks total coverage, but will defer to their recommendations. 4. The patient should have follow up with myself and Dr. Nicholas within one week.
[2021-11-15 21:50] VITALS: BP 170/78
[2021-11-15] MEDS: risperiDONE 0.5 MG TAB PO SCH (21:50)
[2021-11-16] MEDS: ceFAZolin SOD 2 GM in IV 1 EA IV SCH ×2 (05:25→12:02)
[2021-11-16 06:53] LABS: BASO # 0.1 10^3/uL (0.0-0.2); EOS # 0.3 10^3/uL (0.0-0.5); EOS % 5.3 % (0.0-3.0); HEMATOCRIT 30.8 % (36.0-47.0); HEMOGLOBIN 9.2 g/dl (12.0-15.5); LYMPH # 1.8 10^3/uL (1.5-5.0); LYMPH % 34.6 % (24.0-44.0); MEAN CORPUSCULAR HEMOGLOBIN 24.5 pg (27.0-33.0); MEAN CORPUSCULAR HGB CONC 29.9 g/dl (32.0-36.5); MEAN CORPUSCULAR VOLUME 82.1 fl (80.0-96.0); MONO # 0.5 10^3/uL (0.0-0.8); MONO % 10.2 % (2.0-8.0); NEUTROPHILS # 2.5 10^3/uL (1.5-8.5); NEUTROPHILS % 48.5 % (36.0-66.0); PLATELET COUNT, AUTOMATED 419 10^3/uL (150-450); RED BLOOD COUNT 3.75 10^6/uL (4.00-5.40); WHITE BLOOD COUNT 5.1 10^3/uL (4.0-10.0)
[2021-11-16 07:19] LABS: BLOOD UREA NITROGEN 9 MG/DL (7-18); CALCIUM LEVEL 8.5 MG/DL (8.8-10.2); CARBON DIOXIDE LEVEL 24 MEQ/L (21-32); CHLORIDE LEVEL 106 MEQ/L (98-107); CREATININE FOR GFR 0.71 MG/DL (0.55-1.30); GLOMERULAR FILTRATION RATE > 60.0 (>45); GLUCOSE, FASTING 95 MG/DL (70-100); POTASSIUM SERUM 4.4 MEQ/L (3.5-5.1); SODIUM LEVEL 138 MEQ/L (136-145)
[2021-11-16] MEDS: HumaLOG INSULIN (NovoLOG) PER UNIT SC SCH ×2 (07:20→12:04)
[2021-11-16] MEDS ORDERED: APIXABAN 5 MG TAB (ELIQUIS) PO SCH (09:00)
[2021-11-16] MEDS: DOCUSATE SODIUM 100MG CAPSULE PO SCH (09:36)
[2021-11-16] MEDS: LEVEMIR (INSULIN DETEMIR) 1 UNITS/0.01ML SC SCH (09:36)
[2021-11-16] MEDS: ASPIRIN 81MG ENTERIC TABLET PO SCH (09:36)
--- NOTE | 2021-11-16 10:01 | CR ---
CONSULTATION DATE: 11/15/2021 REASON FOR CONSULTATION: Asked to consult by Dr. Pepper for evaluation of left foot osteomyelitis with culture positive for methicillin sensitive Streptococcus aureus (MSSA) and antibiotic choice. HISTORY OF PRESENT ILLNESS: Mrs. Matos is a pleasant 61-year-old female admitted per recommendation of Dr. Montoya for evaluation of left foot infection. The patient had a fever on admission of 101 that resolved within 24 hours. She was having pain in the left foot with drainage. Foot was inflamed, red and swollen. She had some throbbing pain, 2/10. She has bad neuropathy and poor sensation. PAST MEDICAL HISTORY: Significant for: 1. [place]'s disease. 2. Diabetes with peripheral neuropathy. 3. Peripheral vascular disease. 4. Chronic venous stasis. 5. Hypertension. 6. Chronic decubitus ulcers of both calcaneus and was treated in December of 2020 for right heel calcaneal osteomyelitis status post multiple dbridements and hyperbaric treatment by Dr. Nicholas, SURGICAL HISTORY: 1. section. 2. Cholecystectomy. 3. Multiple right heel dbridements. 4. Left lower leg angioplasty 08/02/2021. 5. Right breast biopsy 6. Left third toe amputation. 7. Surgery done by Dr. Montoya this hospitalization including second toe and fourth toe amputations with second surgery done 48 hours with closure of most of the wound. Culture was positive for methicillin sensitive Streptococcus aureus (MSSA). FAMILY HISTORY: Diabetes and hypertension in her mother and Mateo's disease mother's side. SOCIAL HISTORY: She lives with her . She is . She denies alcohol, drug use or smoking. She does not drive. She is mostly in a wheelchair and does not walk at home. REVIEW OF SYSTEMS: She denies any fever, chills or night sweats. No nausea, vomiting or diarrhea. No abdominal pain. She has bad neuropathy both feet. She had a fever only on admission. PHYSICAL EXAMINATION: VITAL SIGNS: Currently, temperature is 95.8, pulse 77, respirations 18, blood pressure 125/54, oxygen saturation 97% on room air. HEART: Normal S1, S2. Systolic ejection murmur 2/6 left upper sternal border. LUNGS: Clear. No wheezes, rales or rhonchi. ABDOMEN: Morbidly obese, soft, nontender. BACK: No cerebrovascular accident (CVA) or lumbosacral tenderness. EXTREMITIES: Trace edema bilaterally. Morbid obesity. Right heel ulcer has completely healed. Left heel has an ulcer measuring 6 x 2 cm with granulation tissue. No sign of infection. Amputation of second to fifth toes with amputation of the metatarsal heads as well. There is an open ulceration over the second metatarsal and the fifth metatarsal with Hydrofera Blue packing. There is no purulent discharge and no surrounding cellulitis. MICROBIOLOGY: Blood cultures two sets on 11/10/2021 were negative. LABORATORY DATA: Sodium 134, potassium 3.9, chloride 102, bicarbonate 28, BUN 10, creatinine 0.75, glucose 86, calcium 8.5. C-reactive protein (CRP) 7.43. White count 6.1, hemoglobin 8.6, hematocrit 27.6, platelets 418, 60% neutrophils, 25% lymphocytes, 9% monocytes. IMAGING DATA: Head CT showed no acute disease. Moderate parenchymal volume loss. Ventricular dilatation is normal for age. Foot x-ray done on 11/11/2021 showed osteomyelitis involving the distal aspect of second through fourth metatarsal. In addition, the third digit is no longer visualized. IMPRESSION: This is a 61-year-old female with a history of morbid obesity, previous history of osteomyelitis, admitted with acute osteomyelitis of the metatarsal with a deep tissue abscess, culture positive for methicillin sensitive Streptococcus aureus (MSSA), negative blood cultures. The patient has done well with IV antibiotic and debridement. The wound has been partially closed. There are two open areas along the second and fifth metatarsal where there was residual infection. At this point, she is afebrile, her white count is normal and she could be switched to oral antibiotic. I would recommend treating her with 4-6 weeks of oral antibiotic with cephalexin 500 mg by mouth four times a day. She is currently on cefazolin 2 grams IV every 8 hours; that was started on 11/12/2021. ALLERGIES: HYDROCHLOROTHIAZIDE. MEDICATIONS: - apixaban 5 mg by mouth twice a day - lisinopril 20 mg by mouth daily - Levemir 15 units subcutaneous twice a day - aspirin 81 mg by mouth daily - insulin sliding scale - Tylenol as needed - Risperdal 0.25 mg by mouth at bedtime - Colace 100 mg by mouth twice a day PLAN: Case has been discussed with Dr. Pepper, hospitalist ____. I recommend that she be switched to cephalexin 500 mg by mouth four times a day for three more weeks. Patient will be treated for a total of 4-6 weeks as an outpatient, depending on healing and outpatient followup. Will monitor complete blood count (CBC), C-reactive protein (CRP) as an outpatient in one week. Patient does not need home IV antibiotics.
--- NOTE | 2021-11-16 10:36 | DS.PDOC ---
Discharge Summary General Date of Admission Nov 10, 2021 at 16:55 Date of Discharge 11/16/2021 Attending Physician: JANAK GODOY MD Discharge Summary PROCEDURES PERFORMED DURING STAY: 1. Left foot toe and metatarsal amputation 11/11 2. Partial closure of L foot wound 11/14/2021 ADMITTING DIAGNOSES: L foot osteomyelitis DISCHARGE DIAGNOSES: L foot abscess and osteomyelitis Mateo's disease. Diabetes with peripheral neuropathy. Peripheral vascular disease. Chronic venous stasis. Hypertension. Chronic decubitus ulcers of both calcaneus COMPLICATIONS/CHIEF COMPLAINT: Left Foot Diabetic. HISTORY OF PRESENT ILLNESS: 61-year-old female with [place]'s disease, diabetes with peripheral neuropathy, peripheral arterial disease, chronic venous stasis, hypertension has been treated for chronic left foot wounds at the wound clinic without any improvement so was referred to Dr. Montoya. The patient went to see Dr. Montoya and was found to have left foot abscess with osteomyelitis so was sent to the hospital for direct admission for IV antibiotics and requirement for surgical intervention. Patient reported that she had the ulcer in her left heel for several months and now also in left third toe for few weeks. She has been following with Dr. Nicholas and he had been debriding the wounds however they were not healing. Now the foot was red and inflamed and swollen with increased discharge from the open wound. HOSPITAL COURSE: On admission she had a fever of 101 that resolved within 24 hours. She was having pain in the left foot with drainage. Foot was inflamed, red and swollen. She was started on vanc and piptazo empirically. Surgery was done by Dr. Montoya this hospitalization including second toe and fourth toe amputations with second surgery done 48 hours with closure of most of the wound. A wound culture from clinic was positive for methicillin sensitive Streptococcus aureus (MSSA) and she was transitioned to ancef with continued improvement. She is now being discharged home with 4w of keflex with close podiatry, wound management and PCP follow up. Of note, during her course, she sustained a traumatic IV placement with subsequent hematoma formation at the site that saw her anticoagulation briefly held. DISCHARGE MEDICATIONS: Please see below. ALLERGIES: Please see below. PHYSICAL EXAMINATION ON DISCHARGE: VITAL SIGNS: Please see below. General: Alert, Cooperative, No Acute Distress Eyes: Conjunctiva & lids normal, anicteric ENT: Atraumatic, Mucous membr. moist/pink, Pharynx Normal Neck: Supple, no JVD, no thyromegaly Chest: Clear to auscultation, Normal air movement, on room air Heart: Rate Normal, Regular Rhythm, no m/r/g Abdomen: Normal bowel sounds, soft, NTND Extremities: no noted edema, L foot in postop bandaging with c/d/i bandage. Psych: Alert and oriented x 3 LABORATORY DATA: Please see below. IMAGING: CT head: Brain: There is moderate parenchymal volume loss. White matter changes are demonstrated in the subcortical, centrum semiovale and periventricular white matter consistent with chronic age related small vessel ischemic changes. Cerebral ventricles: The degree of ventricular dilatation is normal for age and/or degree of atrophy present. Paranasal sinuses: Visualized sinuses are unremarkable. No fluid levels. Mastoid air cells: Visualized mastoid air cells are well aerated. Bones/joints: Unremarkable. No acute fracture. Soft tissues: Unremarkable. IMPRESSION: 1. There is moderate parenchymal volume loss. White matter changes are demonstrated in the subcortical, centrum semiovale and periventricular white matter consistent with chronic age related small vessel ischemic changes. 2. The degree of ventricular dilatation is normal for age and/or degree of atrophy present. L foot XR: The patient is status post amputation of the 5th digit and distal aspect of the 5th metatarsal. Significant decreased bony density has developed involving the heads of the 2nd through 4th metatarsals. The 3rd digit is not present. There is diffuse soft tissue swelling with abnormal air density seen within the soft tissues of the forefoot and midfoot. IMPRESSION: 1. There is plain radiographic evidence of osteomyelitis involving the distal aspects of the 2nd through 4th metatarsals as described above. In addition, the 3rd digit is no longer visualized. I have not been given recent surgical history. This finding needs to be correlated clinically. PROGNOSIS: Good ACTIVITY: As tolerated DIET: consistent carb, 2g sodium DISCHARGE PLAN: Home with services, 4w of keflex. Podiatry, wound care and PCP within 1 week of discharge. DISPOSITION: Home with services DISCHARGE INSTRUCTIONS: Home with services, 4w of keflex. Podiatry, wound care and PCP within 1 week of discharge. ITEMS TO FOLLOWUP ON ON OUTPATIENT: L foot osteomyelitis DISCHARGE CONDITION: Stable TIME SPENT ON DISCHARGE: 46 minutes. Vital Signs/I&Os Vital Signs Date Time Temp Pulse Resp B/P (MAP) Pulse Ox O2 Delivery O2 Flow Rate FiO2 1/4/22 06:27 96.2 72 18 100 11/15/21 21:50 170/78 11/15/21 20:00 Room Air 11/13/21 21:00 0.0 I&O- Last 24 Hours up to 6 AM 11/16/21 06:00 Intake Total 1120 ml Balance 1120 ml Laboratory Data Labs 24H Laboratory Tests 2 11/15/21 11:52: Bedside Glucose (Misc Panel) 183H 11/15/21 17:09: Bedside Glucose (Misc Panel) 143H 11/15/21 21:48: Bedside Glucose (Misc Panel) 156H 11/16/21 06:25: Immature Granulocyte % (Auto) 0.4, Neutrophils (%) (Auto) 48.5, Lymphocytes (%) (Auto) 34.6, Monocytes (%) (Auto) 10.2H, Eosinophils (%) (Auto) 5.3H, Basophils (%) (Auto) 1.0, Neutrophils # (Auto) 2.5, Lymphocytes # (Auto) 1.8, Monocytes # (Auto) 0.5, Eosinophils # (Auto) 0.3, Basophils # (Auto) 0.1, Nucleated Red Blood Cells % (auto) 0.0, Anion Gap 8, Glomerular Filtration Rate > 60.0, Calcium Level 8.5L CBC/BMP Laboratory Tests 11/16/21 06:25 FSBS Laboratory Tests Test 11/15/21 11:52 11/15/21 17:09 11/15/21 21:48 Range/Units Bedside Glucose (Misc Panel) 183 143 156 80-115 MG/DL Microbiology Microbiology 11/10/21 Blood Culture - Final, Complete NO GROWTH AFTER 5 DAYS 11/10/21 Blood Culture - Final, Complete NO GROWTH AFTER 5 DAYS Discharge Medications Scheduled Apixaban (Eliquis) 5 Mg Tablet, 5 MG PO BID, (Reported) Aspirin (Ecotrin) 81 Mg Tablet.dr, 81 MG PO DAILY, (Reported) Docusate Sodium (Colace) 100 Mg Capsule, 100 MG PO QHS, (Reported) Insulin Glargine,Hum.rec.anlog (Lantus Solostar) 100 Unit/1 Ml Insuln.pen, 45 UNITS SC QAM, (Reported) Lisinopril (Lisinopril) 20 Mg Tablet, 20 MG PO DAILY, (Reported) Risperidone (Risperidone) 0.25 Mg Tablet, 0.25 MG PO QHS, (Reported) Allergies Coded Allergies: hydrochlorothiazide (Verified Allergy, Mild, 12/10/20) JANAK GODOY MD Nov 16, 2021 10:36
[2021-11-16] MEDS ORDERED: CVS1CAP2 PO (10:39)
[2021-11-16] MEDS ORDERED: CEPH250T PO (10:39)
== END 2021-11-16 14:30 | disposition home health service (06) | DRG 617 ==
LOC: M ED INP 16:55 → M MS5PR 17:01
PROVIDERS: ADMIT Internal Medicine Nephrology; ATTEND Internal Medicine
PROC: 0JBR0ZZ Excision of Left Foot Subcutaneous Tissue and Fascia, Open Approach (ICD-10-PCS; 2021-11-11)
PROC: 0QBP0ZZ Excision of Left Metatarsal, Open Approach (ICD-10-PCS; 2021-11-11)
PROC: 30233N1 Transfusion of Nonautologous Red Blood Cells into Peripheral Vein, Percutaneous Approach (ICD-10-PCS; 2021-11-11)
PROC: 0Y6S0Z0 Detachment at Left 2nd Toe, Complete, Open Approach (ICD-10-PCS; principal; 2021-11-11 16:00)
PROC: 0Y6W0Z0 Detachment at Left 4th Toe, Complete, Open Approach (ICD-10-PCS; 2021-11-11 16:00)
PROC: 0QBP0ZZ Excision of Left Metatarsal, Open Approach (ICD-10-PCS; 2021-11-14)
DX: E11.69 Type 2 diabetes mellitus with other specified complication (principal); G10 Huntington's disease; L02.612 Cutaneous abscess of left foot; M86.172 Other acute osteomyelitis, left ankle and foot; T82.898A Other specified complication of vascular prosthetic devices, implants and grafts, initial encounter; E11.42 Type 2 diabetes mellitus with diabetic polyneuropathy; E11.51 Type 2 diabetes mellitus with diabetic peripheral angiopathy without gangrene; I10 Essential (primary) hypertension; I87.2 Venous insufficiency (chronic) (peripheral); E11.621 Type 2 diabetes mellitus with foot ulcer; L97.522 Non-pressure chronic ulcer of other part of left foot with fat layer exposed; D64.9 Anemia, unspecified; Z74.09 Other reduced mobility; B95.62 Methicillin resistant Staphylococcus aureus infection as the cause of diseases classified elsewhere; Z86.711 Personal history of pulmonary embolism; Z86.718 Personal history of other venous thrombosis and embolism; Z89.422 Acquired absence of other left toe(s); Z90.49 Acquired absence of other specified parts of digestive tract; Z98.62 Peripheral vascular angioplasty status; Z79.01 Long term (current) use of anticoagulants; Z79.4 Long term (current) use of insulin; Z79.82 Long term (current) use of aspirin; Z79.899 Other long term (current) drug therapy; Z88.8 Allergy status to other drugs, medicaments and biological substances; Y83.1 Surgical operation with implant of artificial internal device as the cause of abnormal reaction of the patient, or of later complication, without mention of misadventure at the time of the procedure; Z99.3 Dependence on wheelchair

== ENCOUNTER → 2021-11-10 | Outpatient (REF) | payer MEDICARE, MEDICAID | LOC: M LAB REF 17:15 | PROVIDERS: ATTEND Podiatrist Foot & Ankle Surgery | DX: M79.672 Pain in left foot (principal) ==

== ENCOUNTER 2021-12-01 15:12 | Inpatient (IN) | payer MEDICARE, MEDICAID ==
[~2021-12-01] VITALS: Ht 170.2 cm; Wt 118.4 kg
[~2021-12-01 15:12] MED LIST changes: +CEPH250T PO; +CVS1CAP2 PO; +ECOT81TA5 PO
[2021-12-01] MEDS ORDERED: NS 1,000 ML IV ONE (17:40)
[2021-12-01 18:26] LABS: BASO % 0.6 % (0.0-1.0); HEMATOCRIT 35.2 % (36.0-47.0); HEMOGLOBIN 10.9 g/dl (12.0-15.5); LYMPH # 0.5 10^3/uL (1.5-5.0); LYMPH % 14.4 % (24.0-44.0); MEAN CORPUSCULAR HEMOGLOBIN 24.9 pg (27.0-33.0); MEAN CORPUSCULAR VOLUME 80.5 fl (80.0-96.0); MONO # 0.3 10^3/uL (0.0-0.8); MONO % 8.5 % (2.0-8.0); NEUTROPHILS # 2.7 10^3/uL (1.5-8.5); NEUTROPHILS % 75.9 % (36.0-66.0); PLATELET COUNT, AUTOMATED 308 10^3/uL (150-450); RED BLOOD COUNT 4.37 10^6/uL (4.00-5.40); WHITE BLOOD COUNT 3.5 10^3/uL (4.0-10.0)
[2021-12-01 18:42] LABS: INR 1.11; PROTHROMBIN TIME 14.7 SECONDS (12.7-14.5)
[2021-12-01 18:43] LABS: PARTIAL THROMBOPLASTIN TIME 37.8 SECONDS (25.9-37.0)
[2021-12-01 18:45] LABS: D-DIMER QUANT 1152.9 ng/ml (<500)
[2021-12-01 18:48] LABS: ALBUMIN 3.2 GM/DL (3.2-5.2); BILIRUBIN,TOTAL 0.4 MG/DL (0.2-1.0); C REACTIVE PROTEIN QUANTITATIV 0.52 MG/DL (0.00-0.30); CALCIUM LEVEL 8.9 MG/DL (8.8-10.2); CREATININE FOR GFR 1.12 MG/DL (0.55-1.30); GLOMERULAR FILTRATION RATE 52.5 (>45); MAGNESIUM LEVEL 1.6 MG/DL (1.8-2.4); POTASSIUM SERUM 4.4 MEQ/L (3.5-5.1); TOTAL PROTEIN 7.3 GM/DL (6.4-8.2)
[2021-12-01] MEDS ORDERED: ISOVUE-370 76% 100ML VIAL As Ordered ONE (19:06)
[2021-12-01] MEDS ORDERED: risperiDONE 0.5 MG TAB PO ONE (22:35)
[2021-12-01] MEDS ORDERED: GLUCAGON INJ 1MG VIAL SC PRN (23:25)
[2021-12-01] MEDS ORDERED: DEXTROSE 50% 50 ML SYRINGE IV PRN (23:25)
[2021-12-01] MEDS ORDERED: GLUCOSE 4GM CHEW TABLET PO PRN (23:25)
[2021-12-02 02:20] VITALS: BP 119/83
[2021-12-02] MEDS ORDERED: CEPH250T PO (03:20)
[2021-12-02] MEDS ORDERED: LISI10TA22 PO (03:20)
[2021-12-02] MEDS ORDERED: BACITAB PO (03:20)
[2021-12-02] MEDS ORDERED: HOME MED LIST COMPLETE! XX SCH (03:25)
[2021-12-02 04:00] VITALS: BP 109/49
[2021-12-02] MEDS: HumaLOG INSULIN (NovoLOG) PER UNIT SC SCH ×3 (08:39→18:28)
[2021-12-02] MEDS ORDERED: NICOTINE 21MG/24HR 1 EA TRANSDERMAL TD SCH (09:00)
[2021-12-02] MEDS ORDERED: ACETAMINOPHEN TAB 650MG DOSE (2X325MG) PO PRN (11:40)
[2021-12-02 14:00] VITALS: BP 115/50
[2021-12-02] MEDS ORDERED: PILL CUTTER 1 EACH XX PRN (19:05)
[2021-12-02 20:00] VITALS: BP 145/59
[2021-12-02] MEDS: risperiDONE 0.5 MG TAB PO SCH (20:47)
[2021-12-02] MEDS: CEPHALEXIN 250MG CAPSULE PO SCH (20:47)
[2021-12-02] MEDS: APIXABAN 5 MG TAB (ELIQUIS) PO SCH (20:48)
[2021-12-03 05:58] VITALS: BP 107/44
[2021-12-03 06:52] LABS: BASO % 0.7 % (0.0-1.0); EOS % 0.7 % (0.0-3.0); HEMATOCRIT 32.7 % (36.0-47.0); HEMOGLOBIN 10.1 g/dl (12.0-15.5); LYMPH # 1.1 10^3/uL (1.5-5.0); LYMPH % 37.2 % (24.0-44.0); MEAN CORPUSCULAR HEMOGLOBIN 24.9 pg (27.0-33.0); MEAN CORPUSCULAR HGB CONC 30.9 g/dl (32.0-36.5); MEAN CORPUSCULAR VOLUME 80.5 fl (80.0-96.0); MONO # 0.4 10^3/uL (0.0-0.8); MONO % 14.8 % (2.0-8.0); NEUTROPHILS # 1.4 10^3/uL (1.5-8.5); NEUTROPHILS % 46.3 % (36.0-66.0); PLATELET COUNT, AUTOMATED 256 10^3/uL (150-450); RED BLOOD COUNT 4.06 10^6/uL (4.00-5.40)
[2021-12-03 07:14] LABS: ALBUMIN 2.6 GM/DL (3.2-5.2); ALT/SGPT 17 U/L (12-78); BILIRUBIN,TOTAL 0.3 MG/DL (0.2-1.0); BLOOD UREA NITROGEN 19 MG/DL (7-18); CARBON DIOXIDE LEVEL 23 MEQ/L (21-32); CHLORIDE LEVEL 102 MEQ/L (98-107); CREATININE FOR GFR 0.83 MG/DL (0.55-1.30); GLOMERULAR FILTRATION RATE > 60.0 (>45); GLUCOSE, FASTING 103 MG/DL (70-100); MAGNESIUM LEVEL 1.7 MG/DL (1.8-2.4); POTASSIUM SERUM 3.9 MEQ/L (3.5-5.1); SODIUM LEVEL 133 MEQ/L (136-145); TOTAL PROTEIN 6.4 GM/DL (6.4-8.2)
[2021-12-03] MEDS: HumaLOG INSULIN (NovoLOG) PER UNIT SC SCH ×3 (07:30→17:17)
[2021-12-03] MEDS: ASPIRIN 81MG ENTERIC TABLET PO SCH (09:18)
[2021-12-03] MEDS: APIXABAN 5 MG TAB (ELIQUIS) PO SCH ×2 (09:18→20:37)
[2021-12-03] MEDS: LACTOBACILLUS ACIDOPHILUS CAP (BACID) PO SCH (09:18)
[2021-12-03] MEDS: LEVEMIR (INSULIN DETEMIR) 1 UNITS/0.01ML SC SCH (09:19)
[2021-12-03] MEDS: CEPHALEXIN 250MG CAPSULE PO SCH ×4 (11:01→20:37)
[2021-12-03] MEDS: ACETAMINOPHEN TAB 650MG DOSE (2X325MG) PO PRN (13:17)
[2021-12-03 13:38] VITALS: BP 109/51
[2021-12-03 18:24] LABS: HEMATOCRIT 33.4 % (36.0-47.0); HEMOGLOBIN 10.3 g/dl (12.0-15.5)
[2021-12-03] MEDS: risperiDONE 0.5 MG TAB PO SCH (20:36)
[2021-12-03 22:00] VITALS: BP 112/55
[2021-12-04 04:00] VITALS: BP 103/51
[2021-12-04] MEDS: HumaLOG INSULIN (NovoLOG) PER UNIT SC SCH ×3 (07:30→16:55)
[2021-12-04] MEDS: LEVEMIR (INSULIN DETEMIR) 1 UNITS/0.01ML SC SCH (08:25)
[2021-12-04] MEDS: LACTOBACILLUS ACIDOPHILUS CAP (BACID) PO SCH (08:32)
[2021-12-04] MEDS: APIXABAN 5 MG TAB (ELIQUIS) PO SCH ×2 (08:32→20:17)
[2021-12-04] MEDS: CEPHALEXIN 250MG CAPSULE PO SCH ×4 (08:32→20:17)
[2021-12-04 10:01] LABS: BASO % 0.4 % (0.0-1.0); EOS % 0.6 % (0.0-3.0); HEMATOCRIT 37.9 % (36.0-47.0); HEMOGLOBIN 11.4 g/dl (12.0-15.5); LYMPH # 1.7 10^3/uL (1.5-5.0); LYMPH % 34.1 % (24.0-44.0); MEAN CORPUSCULAR HEMOGLOBIN 24.4 pg (27.0-33.0); MEAN CORPUSCULAR HGB CONC 30.1 g/dl (32.0-36.5); MEAN CORPUSCULAR VOLUME 81.2 fl (80.0-96.0); MONO # 0.5 10^3/uL (0.0-0.8); MONO % 10.3 % (2.0-8.0); NEUTROPHILS # 2.7 10^3/uL (1.5-8.5); NEUTROPHILS % 54.4 % (36.0-66.0); PLATELET COUNT, AUTOMATED 287 10^3/uL (150-450); RED BLOOD COUNT 4.67 10^6/uL (4.00-5.40); WHITE BLOOD COUNT 4.9 10^3/uL (4.0-10.0)
[2021-12-04 10:30] LABS: ALBUMIN 2.8 GM/DL (3.2-5.2); ALT/SGPT 18 U/L (12-78); BILIRUBIN,TOTAL 0.4 MG/DL (0.2-1.0); BLOOD UREA NITROGEN 15 MG/DL (7-18); CALCIUM LEVEL 8.5 MG/DL (8.8-10.2); CARBON DIOXIDE LEVEL 21 MEQ/L (21-32); CHLORIDE LEVEL 99 MEQ/L (98-107); CREATININE FOR GFR 0.93 MG/DL (0.55-1.30); GLOMERULAR FILTRATION RATE > 60.0 (>45); GLUCOSE, FASTING 144 MG/DL (70-100); MAGNESIUM LEVEL 1.6 MG/DL (1.8-2.4); POTASSIUM SERUM 4.3 MEQ/L (3.5-5.1); SODIUM LEVEL 129 MEQ/L (136-145); TOTAL PROTEIN 7.3 GM/DL (6.4-8.2)
[2021-12-04 14:00] VITALS: BP 100/44
[2021-12-04 20:00] VITALS: BP 95/50
[2021-12-04] MEDS: risperiDONE 0.5 MG TAB PO SCH (20:18)
[2021-12-05 04:47] VITALS: BP 130/57
[2021-12-05] MEDS: MAG SULF 1GM/100ML (MAG RUN) 1 GM in IV 1 EA IV SCH ×2 (07:13→08:27)
[2021-12-05] MEDS: ASPIRIN 81MG ENTERIC TABLET PO SCH (08:27)
[2021-12-05] MEDS: APIXABAN 5 MG TAB (ELIQUIS) PO SCH ×2 (08:27→20:06)
[2021-12-05] MEDS: CEPHALEXIN 250MG CAPSULE PO SCH ×4 (08:28→20:06)
[2021-12-05] MEDS: HumaLOG INSULIN (NovoLOG) PER UNIT SC SCH ×3 (08:28→17:20)
[2021-12-05] MEDS: LACTOBACILLUS ACIDOPHILUS CAP (BACID) PO SCH (08:28)
[2021-12-05] MEDS: LEVEMIR (INSULIN DETEMIR) 1 UNITS/0.01ML SC SCH (09:36)
[2021-12-05 10:15] LABS: BLOOD UREA NITROGEN 13 MG/DL (7-18); CALCIUM LEVEL 8.3 MG/DL (8.8-10.2); CARBON DIOXIDE LEVEL 23 MEQ/L (21-32); CHLORIDE LEVEL 103 MEQ/L (98-107); CREATININE FOR GFR 0.78 MG/DL (0.55-1.30); GLOMERULAR FILTRATION RATE > 60.0 (>45); GLUCOSE, FASTING 172 MG/DL (70-100); MAGNESIUM LEVEL 2.2 MG/DL (1.8-2.4); POTASSIUM SERUM 4.6 MEQ/L (3.5-5.1); SODIUM LEVEL 132 MEQ/L (136-145)
[2021-12-05 12:10] LABS: BASO % 0.6 % (0.0-1.0); EOS # 0.1 10^3/uL (0.0-0.5); EOS % 2.2 % (0.0-3.0); HEMATOCRIT 33.2 % (36.0-47.0); HEMOGLOBIN 10.1 g/dl (12.0-15.5); LYMPH % 29.9 % (24.0-44.0); MEAN CORPUSCULAR HEMOGLOBIN 24.7 pg (27.0-33.0); MEAN CORPUSCULAR HGB CONC 30.4 g/dl (32.0-36.5); MEAN CORPUSCULAR VOLUME 81.2 fl (80.0-96.0); MONO # 0.4 10^3/uL (0.0-0.8); MONO % 11.7 % (2.0-8.0); NEUTROPHILS # 1.8 10^3/uL (1.5-8.5); NEUTROPHILS % 55.3 % (36.0-66.0); PLATELET COUNT, AUTOMATED 214 10^3/uL (150-450); RED BLOOD COUNT 4.09 10^6/uL (4.00-5.40); WHITE BLOOD COUNT 3.2 10^3/uL (4.0-10.0)
[2021-12-05 13:46] VITALS: BP 113/68
[2021-12-05 20:00] VITALS: BP 143/55
[2021-12-05] MEDS: risperiDONE 0.5 MG TAB PO SCH (20:06)
[2021-12-05] MEDS: ACETAMINOPHEN TAB 650MG DOSE (2X325MG) PO PRN (20:07)
[2021-12-06 04:00] VITALS: BP 127/57
[2021-12-06 06:15] LABS: BASO % 0.2 % (0.0-1.0); EOS # 0.2 10^3/uL (0.0-0.5); EOS % 3.2 % (0.0-3.0); HEMATOCRIT 34.4 % (36.0-47.0); HEMOGLOBIN 10.7 g/dl (12.0-15.5); LYMPH # 1.3 10^3/uL (1.5-5.0); LYMPH % 25.8 % (24.0-44.0); MEAN CORPUSCULAR HEMOGLOBIN 25.2 pg (27.0-33.0); MEAN CORPUSCULAR HGB CONC 31.1 g/dl (32.0-36.5); MEAN CORPUSCULAR VOLUME 81.1 fl (80.0-96.0); MONO # 0.4 10^3/uL (0.0-0.8); MONO % 7.5 % (2.0-8.0); NEUTROPHILS # 3.2 10^3/uL (1.5-8.5); NEUTROPHILS % 63.1 % (36.0-66.0); PLATELET COUNT, AUTOMATED 225 10^3/uL (150-450); RED BLOOD COUNT 4.24 10^6/uL (4.00-5.40); WHITE BLOOD COUNT 5.1 10^3/uL (4.0-10.0)
[2021-12-06 06:41] LABS: BLOOD UREA NITROGEN 13 MG/DL (7-18); CALCIUM LEVEL 8.1 MG/DL (8.8-10.2); CARBON DIOXIDE LEVEL 28 MEQ/L (21-32); CHLORIDE LEVEL 99 MEQ/L (98-107); CREATININE FOR GFR 0.82 MG/DL (0.55-1.30); GLOMERULAR FILTRATION RATE > 60.0 (>45); GLUCOSE, FASTING 120 MG/DL (70-100); POTASSIUM SERUM 3.9 MEQ/L (3.5-5.1); SODIUM LEVEL 131 MEQ/L (136-145)
[2021-12-06] MEDS: CEPHALEXIN 250MG CAPSULE PO SCH ×4 (08:40→20:45)
[2021-12-06] MEDS: APIXABAN 5 MG TAB (ELIQUIS) PO SCH ×2 (08:40→20:45)
[2021-12-06] MEDS: LACTOBACILLUS ACIDOPHILUS CAP (BACID) PO SCH (08:40)
[2021-12-06] MEDS: HumaLOG INSULIN (NovoLOG) PER UNIT SC SCH ×3 (08:41→17:27)
[2021-12-06] MEDS: LEVEMIR (INSULIN DETEMIR) 1 UNITS/0.01ML SC SCH (08:41)
[2021-12-06 14:00] VITALS: BP 124/77
[2021-12-06 20:00] VITALS: BP 144/95
[2021-12-06] MEDS: risperiDONE 0.5 MG TAB PO SCH (20:45)
[2021-12-07 04:00] VITALS: BP 128/60
[2021-12-07 07:14] LABS: BASO % 0.4 % (0.0-1.0); EOS # 0.1 10^3/uL (0.0-0.5); EOS % 2.8 % (0.0-3.0); HEMATOCRIT 33.4 % (36.0-47.0); HEMOGLOBIN 10.5 g/dl (12.0-15.5); LYMPH # 1.5 10^3/uL (1.5-5.0); LYMPH % 32.4 % (24.0-44.0); MEAN CORPUSCULAR HEMOGLOBIN 24.9 pg (27.0-33.0); MEAN CORPUSCULAR HGB CONC 31.4 g/dl (32.0-36.5); MEAN CORPUSCULAR VOLUME 79.3 fl (80.0-96.0); MONO # 0.4 10^3/uL (0.0-0.8); MONO % 8.7 % (2.0-8.0); NEUTROPHILS # 2.6 10^3/uL (1.5-8.5); NEUTROPHILS % 55.5 % (36.0-66.0); PLATELET COUNT, AUTOMATED 221 10^3/uL (150-450); RED BLOOD COUNT 4.21 10^6/uL (4.00-5.40); WHITE BLOOD COUNT 4.7 10^3/uL (4.0-10.0)
[2021-12-07 07:35] LABS: BLOOD UREA NITROGEN 10 MG/DL (7-18); CALCIUM LEVEL 8.6 MG/DL (8.8-10.2); CARBON DIOXIDE LEVEL 27 MEQ/L (21-32); CHLORIDE LEVEL 101 MEQ/L (98-107); CREATININE FOR GFR 0.75 MG/DL (0.55-1.30); GLOMERULAR FILTRATION RATE > 60.0 (>45); GLUCOSE, FASTING 120 MG/DL (70-100); MAGNESIUM LEVEL 1.9 MG/DL (1.8-2.4); POTASSIUM SERUM 4.3 MEQ/L (3.5-5.1); SODIUM LEVEL 131 MEQ/L (136-145)
[2021-12-07] MEDS: APIXABAN 5 MG TAB (ELIQUIS) PO SCH ×2 (09:21→19:45)
[2021-12-07] MEDS: CEPHALEXIN 250MG CAPSULE PO SCH ×4 (09:21→19:45)
[2021-12-07] MEDS: LACTOBACILLUS ACIDOPHILUS CAP (BACID) PO SCH (09:21)
[2021-12-07] MEDS: ASPIRIN 81MG ENTERIC TABLET PO SCH (09:21)
[2021-12-07] MEDS: LEVEMIR (INSULIN DETEMIR) 1 UNITS/0.01ML SC SCH (09:22)
[2021-12-07] MEDS: HumaLOG INSULIN (NovoLOG) PER UNIT SC SCH ×3 (09:22→18:19)
[2021-12-07 14:00] VITALS: BP 110/51
[2021-12-07 19:40] VITALS: BP 115/56
[2021-12-07] MEDS: risperiDONE 0.5 MG TAB PO SCH (19:46)
[2021-12-08 04:00] VITALS: BP 117/60
[2021-12-08 06:48] LABS: BASO % 0.8 % (0.0-1.0); EOS # 0.2 10^3/uL (0.0-0.5); EOS % 4.5 % (0.0-3.0); HEMATOCRIT 33.5 % (36.0-47.0); HEMOGLOBIN 10.5 g/dl (12.0-15.5); LYMPH # 1.4 10^3/uL (1.5-5.0); LYMPH % 37.4 % (24.0-44.0); MEAN CORPUSCULAR HEMOGLOBIN 25.2 pg (27.0-33.0); MEAN CORPUSCULAR HGB CONC 31.3 g/dl (32.0-36.5); MEAN CORPUSCULAR VOLUME 80.5 fl (80.0-96.0); MONO # 0.4 10^3/uL (0.0-0.8); MONO % 10.9 % (2.0-8.0); NEUTROPHILS # 1.7 10^3/uL (1.5-8.5); NEUTROPHILS % 46.1 % (36.0-66.0); PLATELET COUNT, AUTOMATED 245 10^3/uL (150-450); RED BLOOD COUNT 4.16 10^6/uL (4.00-5.40); WHITE BLOOD COUNT 3.8 10^3/uL (4.0-10.0)
[2021-12-08 07:14] LABS: BLOOD UREA NITROGEN 12 MG/DL (7-18); CALCIUM LEVEL 8.7 MG/DL (8.8-10.2); CARBON DIOXIDE LEVEL 26 MEQ/L (21-32); CHLORIDE LEVEL 102 MEQ/L (98-107); CREATININE FOR GFR 0.73 MG/DL (0.55-1.30); GLOMERULAR FILTRATION RATE > 60.0 (>45); GLUCOSE, FASTING 141 MG/DL (70-100); MAGNESIUM LEVEL 1.8 MG/DL (1.8-2.4); POTASSIUM SERUM 4.2 MEQ/L (3.5-5.1); SODIUM LEVEL 133 MEQ/L (136-145)
[2021-12-08] MEDS: LEVEMIR (INSULIN DETEMIR) 1 UNITS/0.01ML SC SCH (08:11)
[2021-12-08] MEDS: HumaLOG INSULIN (NovoLOG) PER UNIT SC SCH ×3 (08:11→17:35)
[2021-12-08] MEDS: CEPHALEXIN 250MG CAPSULE PO SCH ×4 (08:11→20:55)
[2021-12-08] MEDS: APIXABAN 5 MG TAB (ELIQUIS) PO SCH ×2 (08:11→20:55)
[2021-12-08] MEDS: LACTOBACILLUS ACIDOPHILUS CAP (BACID) PO SCH (08:12)
[2021-12-08 14:27] VITALS: BP 98/58
[2021-12-08 16:18] VITALS: BP 107/56
[2021-12-08 20:00] VITALS: BP 101/74
[2021-12-08] MEDS: risperiDONE 0.5 MG TAB PO SCH (20:55)
[2021-12-09 04:00] VITALS: BP 146/78
[2021-12-09 07:41] LABS: BASO % 0.4 % (0.0-1.0); EOS # 0.2 10^3/uL (0.0-0.5); EOS % 4.1 % (0.0-3.0); HEMOGLOBIN 10.7 g/dl (12.0-15.5); LYMPH # 1.7 10^3/uL (1.5-5.0); LYMPH % 33.1 % (24.0-44.0); MEAN CORPUSCULAR HEMOGLOBIN 24.9 pg (27.0-33.0); MEAN CORPUSCULAR HGB CONC 31.5 g/dl (32.0-36.5); MEAN CORPUSCULAR VOLUME 79.1 fl (80.0-96.0); MONO # 0.5 10^3/uL (0.0-0.8); MONO % 9.8 % (2.0-8.0); NEUTROPHILS # 2.7 10^3/uL (1.5-8.5); NEUTROPHILS % 52.2 % (36.0-66.0); PLATELET COUNT, AUTOMATED 277 10^3/uL (150-450); WHITE BLOOD COUNT 5.1 10^3/uL (4.0-10.0)
[2021-12-09 08:00] LABS: BLOOD UREA NITROGEN 14 MG/DL (7-18); CALCIUM LEVEL 8.8 MG/DL (8.8-10.2); CARBON DIOXIDE LEVEL 26 MEQ/L (21-32); CHLORIDE LEVEL 101 MEQ/L (98-107); CREATININE FOR GFR 0.76 MG/DL (0.55-1.30); GLOMERULAR FILTRATION RATE > 60.0 (>45); GLUCOSE, FASTING 111 MG/DL (70-100); MAGNESIUM LEVEL 1.8 MG/DL (1.8-2.4); POTASSIUM SERUM 4.1 MEQ/L (3.5-5.1); SODIUM LEVEL 132 MEQ/L (136-145)
[2021-12-09] MEDS: LEVEMIR (INSULIN DETEMIR) 1 UNITS/0.01ML SC SCH (09:56)
[2021-12-09] MEDS: ASPIRIN 81MG ENTERIC TABLET PO SCH (09:57)
[2021-12-09] MEDS: APIXABAN 5 MG TAB (ELIQUIS) PO SCH ×2 (09:57→20:25)
[2021-12-09] MEDS: LACTOBACILLUS ACIDOPHILUS CAP (BACID) PO SCH (09:57)
[2021-12-09] MEDS: HumaLOG INSULIN (NovoLOG) PER UNIT SC SCH ×3 (09:57→18:02)
[2021-12-09] MEDS: CEPHALEXIN 250MG CAPSULE PO SCH ×4 (09:58→20:25)
[2021-12-09 14:00] VITALS: BP 143/94
[2021-12-09 20:00] VITALS: BP 119/58
[2021-12-09] MEDS: risperiDONE 0.5 MG TAB PO SCH (20:25)
[2021-12-10 06:00] VITALS: BP 110/50
[2021-12-10] MEDS: HumaLOG INSULIN (NovoLOG) PER UNIT SC SCH ×3 (07:45→16:57)
[2021-12-10 08:49] LABS: BASO % 0.7 % (0.0-1.0); EOS # 0.2 10^3/uL (0.0-0.5); HEMATOCRIT 34.2 % (36.0-47.0); HEMOGLOBIN 10.8 g/dl (12.0-15.5); LYMPH # 1.3 10^3/uL (1.5-5.0); LYMPH % 28.3 % (24.0-44.0); MEAN CORPUSCULAR HEMOGLOBIN 24.9 pg (27.0-33.0); MEAN CORPUSCULAR HGB CONC 31.6 g/dl (32.0-36.5); MEAN CORPUSCULAR VOLUME 78.8 fl (80.0-96.0); MONO # 0.4 10^3/uL (0.0-0.8); MONO % 9.6 % (2.0-8.0); NEUTROPHILS # 2.6 10^3/uL (1.5-8.5); PLATELET COUNT, AUTOMATED 313 10^3/uL (150-450); RED BLOOD COUNT 4.34 10^6/uL (4.00-5.40); WHITE BLOOD COUNT 4.5 10^3/uL (4.0-10.0)
[2021-12-10 09:14] LABS: BLOOD UREA NITROGEN 16 MG/DL (7-18); CALCIUM LEVEL 8.6 MG/DL (8.8-10.2); CARBON DIOXIDE LEVEL 25 MEQ/L (21-32); CHLORIDE LEVEL 102 MEQ/L (98-107); CREATININE FOR GFR 0.77 MG/DL (0.55-1.30); GLOMERULAR FILTRATION RATE > 60.0 (>45); GLUCOSE, FASTING 148 MG/DL (70-100); MAGNESIUM LEVEL 1.7 MG/DL (1.8-2.4); POTASSIUM SERUM 4.3 MEQ/L (3.5-5.1); SODIUM LEVEL 134 MEQ/L (136-145)
[2021-12-10] MEDS: LACTOBACILLUS ACIDOPHILUS CAP (BACID) PO SCH (09:16)
[2021-12-10] MEDS: LEVEMIR (INSULIN DETEMIR) 1 UNITS/0.01ML SC SCH (09:16)
[2021-12-10] MEDS: APIXABAN 5 MG TAB (ELIQUIS) PO SCH ×2 (09:17→20:44)
[2021-12-10] MEDS: CEPHALEXIN 250MG CAPSULE PO SCH ×4 (09:17→20:44)
[2021-12-10] MEDS ORDERED: MAG SULF 1GM/100ML (MAG RUN) 1 GM in IV 1 EA IV ONE (09:55)
[2021-12-10] MEDS: risperiDONE 0.5 MG TAB PO SCH (20:45)
[2021-12-10] MEDS: ACETAMINOPHEN TAB 650MG DOSE (2X325MG) PO PRN (20:47)
[2021-12-11 06:00] VITALS: BP 135/55
[2021-12-11 06:06] LABS: BASO % 0.7 % (0.0-1.0); EOS # 0.2 10^3/uL (0.0-0.5); EOS % 3.9 % (0.0-3.0); HEMATOCRIT 33.9 % (36.0-47.0); HEMOGLOBIN 10.4 g/dl (12.0-15.5); LYMPH # 1.8 10^3/uL (1.5-5.0); LYMPH % 41.8 % (24.0-44.0); MEAN CORPUSCULAR HEMOGLOBIN 24.5 pg (27.0-33.0); MEAN CORPUSCULAR HGB CONC 30.7 g/dl (32.0-36.5); MEAN CORPUSCULAR VOLUME 79.8 fl (80.0-96.0); MONO # 0.6 10^3/uL (0.0-0.8); MONO % 13.6 % (2.0-8.0); NEUTROPHILS # 1.7 10^3/uL (1.5-8.5); NEUTROPHILS % 39.3 % (36.0-66.0); PLATELET COUNT, AUTOMATED 294 10^3/uL (150-450); RED BLOOD COUNT 4.25 10^6/uL (4.00-5.40); WHITE BLOOD COUNT 4.4 10^3/uL (4.0-10.0)
[2021-12-11 06:26] LABS: BLOOD UREA NITROGEN 15 MG/DL (7-18); CALCIUM LEVEL 8.9 MG/DL (8.8-10.2); CARBON DIOXIDE LEVEL 27 MEQ/L (21-32); CHLORIDE LEVEL 103 MEQ/L (98-107); CREATININE FOR GFR 0.77 MG/DL (0.55-1.30); GLOMERULAR FILTRATION RATE > 60.0 (>45); GLUCOSE, FASTING 114 MG/DL (70-100); MAGNESIUM LEVEL 1.9 MG/DL (1.8-2.4); POTASSIUM SERUM 4.1 MEQ/L (3.5-5.1); SODIUM LEVEL 134 MEQ/L (136-145)
[2021-12-11] MEDS: HumaLOG INSULIN (NovoLOG) PER UNIT SC SCH ×3 (07:30→18:20)
[2021-12-11] MEDS: APIXABAN 5 MG TAB (ELIQUIS) PO SCH ×2 (08:43→21:00)
[2021-12-11] MEDS: LACTOBACILLUS ACIDOPHILUS CAP (BACID) PO SCH (08:43)
[2021-12-11] MEDS: ASPIRIN 81MG ENTERIC TABLET PO SCH (08:43)
[2021-12-11] MEDS: CEPHALEXIN 250MG CAPSULE PO SCH ×4 (08:43→21:00)
[2021-12-11] MEDS: LEVEMIR (INSULIN DETEMIR) 1 UNITS/0.01ML SC SCH (08:43)
[2021-12-11 11:15] VITALS: BP 119/56
[2021-12-11] MEDS: risperiDONE 0.5 MG TAB PO SCH (21:00)
[2021-12-11] MEDS: ACETAMINOPHEN TAB 650MG DOSE (2X325MG) PO PRN (21:01)
[2021-12-12 06:00] VITALS: BP 114/60
[2021-12-12] MEDS: HumaLOG INSULIN (NovoLOG) PER UNIT SC SCH ×3 (08:09→18:34)
[2021-12-12] MEDS: LACTOBACILLUS ACIDOPHILUS CAP (BACID) PO SCH (08:09)
[2021-12-12] MEDS: LEVEMIR (INSULIN DETEMIR) 1 UNITS/0.01ML SC SCH (08:09)
[2021-12-12] MEDS: APIXABAN 5 MG TAB (ELIQUIS) PO SCH ×2 (08:10→21:14)
[2021-12-12] MEDS: CEPHALEXIN 250MG CAPSULE PO SCH ×4 (08:10→21:14)
[2021-12-12 19:00] VITALS: BP 134/80
[2021-12-12] MEDS: risperiDONE 0.5 MG TAB PO SCH (21:15)
[2021-12-13 07:39] VITALS: BP 111/63
[2021-12-13] MEDS: HumaLOG INSULIN (NovoLOG) PER UNIT SC SCH ×3 (09:40→17:30)
[2021-12-13] MEDS: LEVEMIR (INSULIN DETEMIR) 1 UNITS/0.01ML SC SCH (09:40)
[2021-12-13] MEDS: APIXABAN 5 MG TAB (ELIQUIS) PO SCH ×2 (09:41→20:15)
[2021-12-13] MEDS: ASPIRIN 81MG ENTERIC TABLET PO SCH (09:41)
[2021-12-13] MEDS: LACTOBACILLUS ACIDOPHILUS CAP (BACID) PO SCH (09:41)
[2021-12-13] MEDS: CEPHALEXIN 250MG CAPSULE PO SCH ×4 (09:41→20:15)
[2021-12-13] MEDS: risperiDONE 0.5 MG TAB PO SCH (20:16)
[2021-12-14 01:26] LABS: HEMATOCRIT 30.6 % (36.0-47.0); HEMOGLOBIN 9.6 g/dl (12.0-15.5)
[2021-12-14] MEDS: DOCUSATE SODIUM 100MG CAPSULE PO SCH ×3 (03:02→20:44)
[2021-12-14] MEDS: PANTOPRAZOLE 40MG VIAL (C9113 PER 1) IV SCH ×3 (03:04→20:45)
[2021-12-14 06:00] VITALS: BP_SYST 106; BP_DIAS 48; BP_DIAS 58
[2021-12-14] MEDS: HumaLOG INSULIN (NovoLOG) PER UNIT SC SCH ×3 (07:30→18:05)
[2021-12-14] MEDS: LEVEMIR (INSULIN DETEMIR) 1 UNITS/0.01ML SC SCH (10:01)
[2021-12-14] MEDS: CEPHALEXIN 250MG CAPSULE PO SCH ×4 (10:02→20:44)
[2021-12-14] MEDS: LACTOBACILLUS ACIDOPHILUS CAP (BACID) PO SCH (10:02)
[2021-12-14 11:58] LABS: BASO % 0.7 % (0.0-1.0); EOS # 0.1 10^3/uL (0.0-0.5); EOS % 1.9 % (0.0-3.0); HEMATOCRIT 34.2 % (36.0-47.0); HEMOGLOBIN 10.6 g/dl (12.0-15.5); LYMPH # 1.4 10^3/uL (1.5-5.0); LYMPH % 25.4 % (24.0-44.0); MEAN CORPUSCULAR HEMOGLOBIN 24.5 pg (27.0-33.0); MEAN CORPUSCULAR VOLUME 79.2 fl (80.0-96.0); MONO # 0.5 10^3/uL (0.0-0.8); MONO % 8.6 % (2.0-8.0); NEUTROPHILS # 3.4 10^3/uL (1.5-8.5); NEUTROPHILS % 62.8 % (36.0-66.0); PLATELET COUNT, AUTOMATED 392 10^3/uL (150-450); RED BLOOD COUNT 4.32 10^6/uL (4.00-5.40); WHITE BLOOD COUNT 5.4 10^3/uL (4.0-10.0)
[2021-12-14 12:04] LABS: BLOOD UREA NITROGEN 17 MG/DL (7-18); CALCIUM LEVEL 9.3 MG/DL (8.8-10.2); CARBON DIOXIDE LEVEL 25 MEQ/L (21-32); CHLORIDE LEVEL 100 MEQ/L (98-107); CREATININE FOR GFR 0.86 MG/DL (0.55-1.30); GLOMERULAR FILTRATION RATE > 60.0 (>45); GLUCOSE, FASTING 192 MG/DL (70-100); MAGNESIUM LEVEL 1.8 MG/DL (1.8-2.4); POTASSIUM SERUM 4.4 MEQ/L (3.5-5.1); SODIUM LEVEL 133 MEQ/L (136-145)
[2021-12-14 12:10] LABS: PERCENT SATURATION 16.4 % (13.2-45.0)
[2021-12-14 12:16] LABS: FOLATE 8.2 NG/ML (>5.4)
[2021-12-14 17:00] LABS: HEMATOCRIT 33.4 % (36.0-47.0); HEMOGLOBIN 10.5 g/dl (12.0-15.5)
[2021-12-14] MEDS: risperiDONE 0.5 MG TAB PO SCH (20:44)
[2021-12-15 01:42] LABS: HEMATOCRIT 31.8 % (36.0-47.0); HEMOGLOBIN 9.9 g/dl (12.0-15.5)
[2021-12-15 06:00] VITALS: BP 111/48
[2021-12-15 06:41] LABS: BASO % 0.8 % (0.0-1.0); EOS # 0.2 10^3/uL (0.0-0.5); HEMATOCRIT 30.6 % (36.0-47.0); HEMOGLOBIN 9.5 g/dl (12.0-15.5); LYMPH # 1.6 10^3/uL (1.5-5.0); LYMPH % 30.8 % (24.0-44.0); MEAN CORPUSCULAR HEMOGLOBIN 24.6 pg (27.0-33.0); MEAN CORPUSCULAR VOLUME 79.3 fl (80.0-96.0); MONO # 0.6 10^3/uL (0.0-0.8); NEUTROPHILS # 2.7 10^3/uL (1.5-8.5); PLATELET COUNT, AUTOMATED 325 10^3/uL (150-450); RED BLOOD COUNT 3.86 10^6/uL (4.00-5.40); WHITE BLOOD COUNT 5.1 10^3/uL (4.0-10.0)
[2021-12-15 07:07] LABS: BLOOD UREA NITROGEN 19 MG/DL (7-18); CALCIUM LEVEL 8.9 MG/DL (8.8-10.2); CARBON DIOXIDE LEVEL 27 MEQ/L (21-32); CHLORIDE LEVEL 103 MEQ/L (98-107); CREATININE FOR GFR 0.85 MG/DL (0.55-1.30); GLOMERULAR FILTRATION RATE > 60.0 (>45); GLUCOSE, FASTING 135 MG/DL (70-100); MAGNESIUM LEVEL 1.7 MG/DL (1.8-2.4); POTASSIUM SERUM 4.2 MEQ/L (3.5-5.1); SODIUM LEVEL 133 MEQ/L (136-145)
[2021-12-15 08:25] VITALS: BP 132/56
[2021-12-15] MEDS: ASPIRIN 81MG ENTERIC TABLET PO SCH (09:15)
[2021-12-15] MEDS: LACTOBACILLUS ACIDOPHILUS CAP (BACID) PO SCH (09:15)
[2021-12-15] MEDS: CEPHALEXIN 250MG CAPSULE PO SCH ×4 (09:16→21:20)
[2021-12-15] MEDS: DOCUSATE SODIUM 100MG CAPSULE PO SCH ×2 (09:16→21:27)
[2021-12-15] MEDS: LEVEMIR (INSULIN DETEMIR) 1 UNITS/0.01ML SC SCH (09:17)
[2021-12-15] MEDS: HumaLOG INSULIN (NovoLOG) PER UNIT SC SCH ×3 (09:17→17:23)
[2021-12-15] MEDS ORDERED: MAG SULF 1GM/100ML (MAG RUN) 1 GM in IV 1 EA IV ONE (11:50)
[2021-12-15] MEDS: PANTOPRAZOLE 40MG VIAL (C9113 PER 1) IV SCH ×2 (12:07→21:19)
[2021-12-15] MEDS: FERROUS SULFATE 325MG TAB PO SCH (12:58)
[2021-12-15] MEDS: risperiDONE 0.5 MG TAB PO SCH (21:20)
[2021-12-16 05:30] VITALS: BP 113/52
[2021-12-16 06:42] LABS: BASO % 0.8 % (0.0-1.0); EOS # 0.1 10^3/uL (0.0-0.5); EOS % 2.6 % (0.0-3.0); HEMATOCRIT 30.2 % (36.0-47.0); HEMOGLOBIN 9.3 g/dl (12.0-15.5); LYMPH # 1.8 10^3/uL (1.5-5.0); LYMPH % 35.4 % (24.0-44.0); MEAN CORPUSCULAR HEMOGLOBIN 24.7 pg (27.0-33.0); MEAN CORPUSCULAR HGB CONC 30.8 g/dl (32.0-36.5); MEAN CORPUSCULAR VOLUME 80.3 fl (80.0-96.0); MONO # 0.5 10^3/uL (0.0-0.8); MONO % 9.8 % (2.0-8.0); NEUTROPHILS # 2.5 10^3/uL (1.5-8.5); NEUTROPHILS % 50.8 % (36.0-66.0); PLATELET COUNT, AUTOMATED 329 10^3/uL (150-450); RED BLOOD COUNT 3.76 10^6/uL (4.00-5.40)
[2021-12-16 07:08] LABS: CALCIUM LEVEL 8.8 MG/DL (8.8-10.2); GLOMERULAR FILTRATION RATE 59.8 (>45); POTASSIUM SERUM 4.2 MEQ/L (3.5-5.1)
[2021-12-16] MEDS: HumaLOG INSULIN (NovoLOG) PER UNIT SC SCH ×3 (07:30→17:10)
[2021-12-16] MEDS: LACTOBACILLUS ACIDOPHILUS CAP (BACID) PO SCH (08:42)
[2021-12-16] MEDS: FERROUS SULFATE 325MG TAB PO SCH (08:43)
[2021-12-16] MEDS: CEPHALEXIN 250MG CAPSULE PO SCH ×4 (08:43→20:31)
[2021-12-16] MEDS: LEVEMIR (INSULIN DETEMIR) 1 UNITS/0.01ML SC SCH (08:45)
[2021-12-16] MEDS: DOCUSATE SODIUM 100MG CAPSULE PO SCH ×2 (08:45→20:31)
[2021-12-16 08:54] VITALS: BP 106/60
[2021-12-16] MEDS: PANTOPRAZOLE 40MG VIAL (C9113 PER 1) IV SCH (10:07)
[2021-12-16 15:56] LABS: MAGNESIUM LEVEL 1.6 MG/DL (1.7-2.2)
[2021-12-16] MEDS ORDERED: FERR1TAB8 PO (18:48)
[2021-12-16] MEDS ORDERED: PANT40TA29 PO (18:48)
[2021-12-16 20:17] VITALS: BP 100/60
[2021-12-16] MEDS: PANTOPRAZOLE 40MG TAB (PROTONIX) PO SCH (20:31)
[2021-12-16] MEDS: APIXABAN 5 MG TAB (ELIQUIS) PO SCH (20:31)
[2021-12-16] MEDS: risperiDONE 0.5 MG TAB PO SCH (20:32)
[2021-12-17 06:10] VITALS: BP 78/59
[2021-12-17 06:55] VITALS: BP 95/53
[2021-12-17] MEDS ORDERED: MAG SULF 1GM/100ML (MAG RUN) 1 GM in IV 1 EA IV ONE (09:00)
[2021-12-17] MEDS: LEVEMIR (INSULIN DETEMIR) 1 UNITS/0.01ML SC SCH (09:15)
[2021-12-17] MEDS: APIXABAN 5 MG TAB (ELIQUIS) PO SCH (09:16)
[2021-12-17] MEDS: FERROUS SULFATE 325MG TAB PO SCH (09:16)
[2021-12-17] MEDS: DOCUSATE SODIUM 100MG CAPSULE PO SCH (09:16)
[2021-12-17] MEDS: LACTOBACILLUS ACIDOPHILUS CAP (BACID) PO SCH (09:16)
[2021-12-17] MEDS: HumaLOG INSULIN (NovoLOG) PER UNIT SC SCH ×2 (09:16→12:03)
[2021-12-17] MEDS: PANTOPRAZOLE 40MG TAB (PROTONIX) PO SCH (09:16)
[2021-12-17] MEDS: CEPHALEXIN 250MG CAPSULE PO SCH ×2 (09:16→12:03)
[2021-12-17] MEDS: ASPIRIN 81MG ENTERIC TABLET PO SCH (09:16)
[2021-12-17 09:38] LABS: BASO # 0.1 10^3/uL (0.0-0.2); BASO % 1.1 % (0.0-1.0); EOS # 0.1 10^3/uL (0.0-0.5); HEMATOCRIT 32.4 % (36.0-47.0); LYMPH # 1.2 10^3/uL (1.5-5.0); LYMPH % 26.2 % (24.0-44.0); MEAN CORPUSCULAR HEMOGLOBIN 24.7 pg (27.0-33.0); MEAN CORPUSCULAR HGB CONC 30.9 g/dl (32.0-36.5); MONO # 0.4 10^3/uL (0.0-0.8); MONO % 8.7 % (2.0-8.0); NEUTROPHILS # 2.8 10^3/uL (1.5-8.5); NEUTROPHILS % 61.6 % (36.0-66.0); PLATELET COUNT, AUTOMATED 332 10^3/uL (150-450); RED BLOOD COUNT 4.05 10^6/uL (4.00-5.40); WHITE BLOOD COUNT 4.5 10^3/uL (4.0-10.0)
[2021-12-17 09:59] LABS: BLOOD UREA NITROGEN 15 MG/DL (7-18); CALCIUM LEVEL 8.9 MG/DL (8.8-10.2); CARBON DIOXIDE LEVEL 24 MEQ/L (21-32); CHLORIDE LEVEL 101 MEQ/L (98-107); CREATININE FOR GFR 0.91 MG/DL (0.55-1.30); GLOMERULAR FILTRATION RATE > 60.0 (>45); GLUCOSE, FASTING 209 MG/DL (70-100); POTASSIUM SERUM 4.5 MEQ/L (3.5-5.1); SODIUM LEVEL 134 MEQ/L (136-145)
[2021-12-17 22:19] LABS: MAGNESIUM LEVEL 1.5 MG/DL (1.7-2.2)
== END 2021-12-17 12:39 | DRG 178 ==
LOC: EDBD 15:12 → M ED 15:12 → M ED INP 15:13 → ENRESERV 12-02 01:53 → M 4MAIN 12-02 02:20 → OBSVTOIN 12-03 14:20 → M MSPAV 12-11 11:03
PROVIDERS: ADMIT Internal Medicine; ATTEND Internal Medicine
DX: U07.1 COVID-19 (principal); G10 Huntington's disease; E87.1 Hypo-osmolality and hyponatremia; K92.2 Gastrointestinal hemorrhage, unspecified; J10.1 Influenza due to other identified influenza virus with other respiratory manifestations; E11.51 Type 2 diabetes mellitus with diabetic peripheral angiopathy without gangrene; R19.7 Diarrhea, unspecified; R53.81 Other malaise; I10 Essential (primary) hypertension; D50.9 Iron deficiency anemia, unspecified; K64.8 Other hemorrhoids; E83.42 Hypomagnesemia; R53.1 Weakness; I87.2 Venous insufficiency (chronic) (peripheral); Z86.711 Personal history of pulmonary embolism; Z79.01 Long term (current) use of anticoagulants; Z79.82 Long term (current) use of aspirin; Z79.899 Other long term (current) drug therapy; Z88.8 Allergy status to other drugs, medicaments and biological substances; Z90.49 Acquired absence of other specified parts of digestive tract; Z98.62 Peripheral vascular angioplasty status; Z89.422 Acquired absence of other left toe(s); Z99.3 Dependence on wheelchair

== ENCOUNTER 2021-12-25 18:30 | Inpatient (IN) | payer MEDICARE, MEDICAID ==
[~2021-12-25] VITALS: Ht 154.9 cm; Wt 255.8 kg
[~2021-12-25 18:30] MED LIST changes: +BACITAB PO; +FERR1TAB8 PO; +LISI10TA22 PO; +PANT40TA29 PO
[2021-12-25 19:50] LABS: HEMOGLOBIN 8.8 g/dl (12.0-15.5); MEAN CORPUSCULAR HEMOGLOBIN 25.5 pg (27.0-33.0); MEAN CORPUSCULAR HGB CONC 31.4 g/dl (32.0-36.5); MEAN CORPUSCULAR VOLUME 81.2 fl (80.0-96.0); PLATELET COUNT, AUTOMATED 292 10^3/uL (150-450); RED BLOOD COUNT 3.45 10^6/uL (4.00-5.40); WHITE BLOOD COUNT 9.3 10^3/uL (4.0-10.0)
[2021-12-25 20:15] LABS: ATYPICAL LYMPH 2 % (0-5); LYMPHOCYTES 16 % (16-44); MONOCYTES 7 % (0-5); NEUTROPHILS 75 % (28-66); PLATELET ESTIMATE NORMAL (NORMAL)
[2021-12-25 20:16] LABS: ANISOCYTOSIS 1+
[2021-12-25 20:33] LABS: ALBUMIN 2.5 GM/DL (3.2-5.2); BILIRUBIN,DIRECT 0.1 MG/DL (0.0-0.2); BILIRUBIN,TOTAL 0.5 MG/DL (0.2-1.0); CALCIUM LEVEL 8.5 MG/DL (8.8-10.2); CREATININE FOR GFR 1.03 MG/DL (0.55-1.30); GLOMERULAR FILTRATION RATE 57.8 (>45); POTASSIUM SERUM 4.4 MEQ/L (3.5-5.1); THYROID STIMULATING HORMONE 1.03 uIU/ML (0.358-3.740)
[2021-12-25] MEDS: LEVEMIR (INSULIN DETEMIR) 1 UNITS/0.01ML SC SCH (21:00)
[2021-12-25] MEDS: APIXABAN 5 MG TAB (ELIQUIS) PO SCH (21:00)
[2021-12-25] MEDS: risperiDONE 0.5 MG TAB PO SCH (21:00)
[2021-12-25] MEDS ORDERED: HOME MED LIST COMPLETE! XX SCH (21:10)
[2021-12-25] MEDS: NS 1,000 ML IV SCH (22:15)
[2021-12-25] MEDS ORDERED: GLUCAGON INJ 1MG VIAL SC PRN (22:30)
[2021-12-25] MEDS ORDERED: DEXTROSE 50% 50 ML SYRINGE IV PRN (22:30)
[2021-12-25] MEDS ORDERED: ACETAMINOPHEN TAB 650MG DOSE (2X325MG) PO PRN (22:30)
[2021-12-25] MEDS ORDERED: GLUCOSE 4GM CHEW TABLET PO PRN (22:30)
[2021-12-26] MEDS ORDERED: UNRESOLVED CLARIFICATION ENTRY XX SCH (00:01)
[2021-12-26] MEDS ORDERED: CIPROFLOXACIN 400 MG in IV 1 EA IV ONE (01:00)
[2021-12-26 06:20] LABS: HEMOGLOBIN 8.3 g/dl (12.0-15.5); MEAN CORPUSCULAR HEMOGLOBIN 25.2 pg (27.0-33.0); MEAN CORPUSCULAR HGB CONC 30.7 g/dl (32.0-36.5); MEAN CORPUSCULAR VOLUME 82.1 fl (80.0-96.0); PLATELET COUNT, AUTOMATED 281 10^3/uL (150-450); RED BLOOD COUNT 3.29 10^6/uL (4.00-5.40); WHITE BLOOD COUNT 8.1 10^3/uL (4.0-10.0)
[2021-12-26 06:46] LABS: BLOOD UREA NITROGEN 25 MG/DL (7-18); CALCIUM LEVEL 8.4 MG/DL (8.8-10.2); CARBON DIOXIDE LEVEL 22 MEQ/L (21-32); CHLORIDE LEVEL 102 MEQ/L (98-107); CREATININE FOR GFR 0.84 MG/DL (0.55-1.30); GLOMERULAR FILTRATION RATE > 60.0 (>45); GLUCOSE, FASTING 151 MG/DL (70-100); SODIUM LEVEL 132 MEQ/L (136-145)
[2021-12-26] MEDS: LEVEMIR (INSULIN DETEMIR) 1 UNITS/0.01ML SC SCH ×2 (08:49→20:59)
[2021-12-26] MEDS: APIXABAN 5 MG TAB (ELIQUIS) PO SCH ×2 (08:49→20:57)
[2021-12-26] MEDS: HumaLOG INSULIN (NovoLOG) PER UNIT SC SCH ×4 (08:49→21:00)
[2021-12-26] MEDS: NS 1,000 ML IV SCH (11:54)
[2021-12-26] MEDS: CIPROFLOXACIN 400 MG in IV 1 EA IV SCH (13:46)
[2021-12-26 16:20] VITALS: BP 152/76
[2021-12-26] MEDS: risperiDONE 0.5 MG TAB PO SCH (20:57)
[2021-12-26 21:00] VITALS: BP 138/51
[2021-12-27] MEDS: CIPROFLOXACIN 400 MG in IV 1 EA IV SCH (01:07)
[2021-12-27 05:41] LABS: BASO % 0.6 % (0.0-1.0); EOS # 0.1 10^3/uL (0.0-0.5); EOS % 2.1 % (0.0-3.0); HEMATOCRIT 25.7 % (36.0-47.0); HEMOGLOBIN 7.8 g/dl (12.0-15.5); LYMPH # 1.2 10^3/uL (1.5-5.0); LYMPH % 17.9 % (24.0-44.0); MEAN CORPUSCULAR HEMOGLOBIN 25.2 pg (27.0-33.0); MEAN CORPUSCULAR HGB CONC 30.4 g/dl (32.0-36.5); MEAN CORPUSCULAR VOLUME 82.9 fl (80.0-96.0); MONO # 0.8 10^3/uL (0.0-0.8); MONO % 12.3 % (2.0-8.0); NEUTROPHILS # 4.4 10^3/uL (1.5-8.5); NEUTROPHILS % 66.8 % (36.0-66.0); PLATELET COUNT, AUTOMATED 251 10^3/uL (150-450); WHITE BLOOD COUNT 6.6 10^3/uL (4.0-10.0)
[2021-12-27 05:50] LABS: BLOOD UREA NITROGEN 16 MG/DL (7-18); CALCIUM LEVEL 8.1 MG/DL (8.8-10.2); CARBON DIOXIDE LEVEL 20 MEQ/L (21-32); CHLORIDE LEVEL 105 MEQ/L (98-107); CREATININE FOR GFR 0.72 MG/DL (0.55-1.30); GLOMERULAR FILTRATION RATE > 60.0 (>45); GLUCOSE, FASTING 84 MG/DL (70-100); MAGNESIUM LEVEL 1.3 MG/DL (1.8-2.4); POTASSIUM SERUM 3.8 MEQ/L (3.5-5.1); SODIUM LEVEL 133 MEQ/L (136-145)
[2021-12-27 06:00] VITALS: BP 106/44
[2021-12-27] MEDS: HumaLOG INSULIN (NovoLOG) PER UNIT SC SCH ×4 (07:30→20:16)
[2021-12-27 08:51] LABS: PERCENT SATURATION 6.5 % (13.2-45.0)
[2021-12-27] MEDS ORDERED: ASPIRIN 81MG ENTERIC TABLET PO SCH (09:00)
[2021-12-27] MEDS: APIXABAN 5 MG TAB (ELIQUIS) PO SCH ×2 (09:03→20:08)
[2021-12-27] MEDS: MAG SULF 1GM/100ML (MAG RUN) 1 GM in IV 1 EA IV SCH ×3 (09:03→10:36)
[2021-12-27] MEDS: FERROUS SULFATE 325MG TAB PO SCH ×2 (10:36→20:08)
[2021-12-27] MEDS: LEVEMIR (INSULIN DETEMIR) 1 UNITS/0.01ML SC SCH ×2 (10:37→20:17)
[2021-12-27 12:09] LABS: HEMATOCRIT 30.4 % (36.0-47.0); HEMOGLOBIN 9.1 g/dl (12.0-15.5)
[2021-12-27 13:08] LABS: FOLATE 9.4 NG/ML (>5.4)
[2021-12-27 14:00] VITALS: BP 102/68
[2021-12-27] MEDS: FIBER-CON 625 MG TAB PO SCH ×2 (15:00→20:39)
[2021-12-27 20:15] VITALS: BP 108/43
[2021-12-27] MEDS: risperiDONE 0.5 MG TAB PO SCH (20:15)
[2021-12-27 22:00] VITALS: BP 108/43
[2021-12-28 05:47] LABS: BASO % 0.4 % (0.0-1.0); EOS # 0.2 10^3/uL (0.0-0.5); HEMATOCRIT 26.6 % (36.0-47.0); HEMOGLOBIN 8.3 g/dl (12.0-15.5); LYMPH # 1.5 10^3/uL (1.5-5.0); LYMPH % 18.8 % (24.0-44.0); MEAN CORPUSCULAR HEMOGLOBIN 25.1 pg (27.0-33.0); MEAN CORPUSCULAR HGB CONC 31.2 g/dl (32.0-36.5); MEAN CORPUSCULAR VOLUME 80.4 fl (80.0-96.0); MONO # 1.1 10^3/uL (0.0-0.8); MONO % 12.8 % (2.0-8.0); NEUTROPHILS # 5.4 10^3/uL (1.5-8.5); NEUTROPHILS % 65.4 % (36.0-66.0); PLATELET COUNT, AUTOMATED 285 10^3/uL (150-450); RED BLOOD COUNT 3.31 10^6/uL (4.00-5.40); WHITE BLOOD COUNT 8.2 10^3/uL (4.0-10.0)
[2021-12-28 06:00] VITALS: BP 93/42
[2021-12-28 06:09] LABS: BLOOD UREA NITROGEN 16 MG/DL (7-18); CALCIUM LEVEL 8.3 MG/DL (8.8-10.2); CARBON DIOXIDE LEVEL 23 MEQ/L (21-32); CHLORIDE LEVEL 102 MEQ/L (98-107); CREATININE FOR GFR 0.77 MG/DL (0.55-1.30); GLOMERULAR FILTRATION RATE > 60.0 (>45); GLUCOSE, FASTING 90 MG/DL (70-100); MAGNESIUM LEVEL 1.7 MG/DL (1.8-2.4); POTASSIUM SERUM 3.8 MEQ/L (3.5-5.1); SODIUM LEVEL 133 MEQ/L (136-145)
[2021-12-28] MEDS: HumaLOG INSULIN (NovoLOG) PER UNIT SC SCH ×2 (07:30→12:53)
[2021-12-28] MEDS: LEVEMIR (INSULIN DETEMIR) 1 UNITS/0.01ML SC SCH (09:00)
[2021-12-28] MEDS ORDERED: metroNIDAZOLE (FLAGYL) 500MG TABLET PO SCH (09:00)
[2021-12-28] MEDS ORDERED: MAGNESIUM OXIDE 400MG TAB (MAG-OX) PO SCH (09:00)
[2021-12-28] MEDS: FIBER-CON 625 MG TAB PO SCH (09:17)
[2021-12-28] MEDS: APIXABAN 5 MG TAB (ELIQUIS) PO SCH (09:17)
[2021-12-28] MEDS: FERROUS SULFATE 325MG TAB PO SCH (09:18)
[2021-12-28] MEDS ORDERED: LOMOTIL 2.5MG/0.025MG TABLET PO ONE (09:30)
[2021-12-28] MEDS ORDERED: MAGN400T2 PO (10:24)
[2021-12-28] MEDS ORDERED: INSUDET SC (10:24)
[2021-12-28] MEDS ORDERED: MIDO5TA PO (10:24)
[2021-12-28] MEDS ORDERED: LOPE2CAP PO (10:25)
[2021-12-28] MEDS ORDERED: CIPR-249 PO (10:31)
[2021-12-28] MEDS ORDERED: BACITAB PO (10:31)
[2021-12-28] MEDS ORDERED: METR-265 PO (10:31)
[2021-12-28] MEDS ORDERED: CIPROFLOXACIN 500MG TABLET PO SCH (10:35)
[2021-12-28] MEDS: MIDODRINE 5 MG TAB PO SCH ×2 (10:57→12:00)
[2021-12-28] MEDS ORDERED: LOMOTIL 2.5MG/0.025MG TABLET PO SCH (12:00)
[2021-12-28] MEDS ORDERED: LACTOBACILLUS ACIDOPHILUS CAP (BACID) PO SCH (12:30)
== END 2021-12-28 13:07 | DRG 392 ==
LOC: M ED 18:30 → M ED INP 22:30 → ENRESERV 12-26 15:24 → M MSPAV 12-26 16:22
PROVIDERS: ADMIT Family Medicine; ATTEND General Practice
DX: A09 Infectious gastroenteritis and colitis, unspecified (principal); G10 Huntington's disease; Z68.43 Body mass index [BMI] 50.0-59.9, adult; E87.1 Hypo-osmolality and hyponatremia; R53.1 Weakness; U09.9 Post COVID-19 condition, unspecified; E86.0 Dehydration; E11.9 Type 2 diabetes mellitus without complications; D64.9 Anemia, unspecified; R53.81 Other malaise; E66.01 Morbid (severe) obesity due to excess calories; I10 Essential (primary) hypertension; Z99.3 Dependence on wheelchair; Z79.01 Long term (current) use of anticoagulants; Z79.82 Long term (current) use of aspirin; Z79.4 Long term (current) use of insulin; Z79.899 Other long term (current) drug therapy; Z88.8 Allergy status to other drugs, medicaments and biological substances; Z86.711 Personal history of pulmonary embolism; Z89.422 Acquired absence of other left toe(s)

== ENCOUNTER → 2022-03-14 | Outpatient (REF) | payer MEDICARE ==
[~2022-03-14] MED LIST changes: +CIPR-249 PO; +INSUDET SC; +LOPE2CAP PO; +MAGN400T2 PO; +METR-265 PO; +MIDO5TA PO
[2022-03-14 16:09] LABS: HEMOGLOBIN A1c 5.8 %
[2022-03-14 16:21] LABS: ALBUMIN 3.3 GM/DL (3.2-5.2); ALT/SGPT 18 U/L (12-78); BILIRUBIN,TOTAL 0.4 MG/DL (0.2-1.0); BLOOD UREA NITROGEN 22 MG/DL (7-18); CALCIUM LEVEL 9.3 MG/DL (8.8-10.2); CARBON DIOXIDE LEVEL 29 MEQ/L (21-32); CHLORIDE LEVEL 102 MEQ/L (98-107); CHOLESTEROL LEVEL 119 MG/DL (<200); CHOLESTEROL RISK RATIO 2.087 (<5); CREATININE FOR GFR 0.84 MG/DL (0.55-1.30); GLOMERULAR FILTRATION RATE > 60.0 (>45); GLUCOSE, FASTING 157 MG/DL (70-100); HDL CHOLESTEROL 57 MG/DL (>40); LDL CHOLESTEROL 49 MG/DL (<100); NON-HDL-C 62 MG/DL; POTASSIUM SERUM 4.2 MEQ/L (3.5-5.1); SODIUM LEVEL 136 MEQ/L (136-145); TOTAL PROTEIN 6.8 GM/DL (6.4-8.2); TRIGLYCERIDES LEVEL 64 MG/DL (<150)
== END ==
LOC: M SFHCCLAY 15:24
PROVIDERS: ATTEND Family Medicine
DX: E11.621 Type 2 diabetes mellitus with foot ulcer (principal)

== ENCOUNTER 2022-07-28 12:12 | Inpatient (IN) | payer MEDICAID, MEDICARE ==
[~2022-07-28] VITALS: Ht 170.2 cm; Wt 113.6 kg
[2022-07-28 16:13] LABS: BASO % 0.6 % (0.0-1.0); EOS # 0.1 10^3/uL (0.0-0.5); EOS % 1.6 % (0.0-3.0); HEMATOCRIT 37.8 % (36.0-47.0); LYMPH # 1.5 10^3/uL (1.5-5.0); LYMPH % 20.8 % (24.0-44.0); MEAN CORPUSCULAR HEMOGLOBIN 25.2 pg (27.0-33.0); MEAN CORPUSCULAR HGB CONC 31.7 g/dl (32.0-36.5); MEAN CORPUSCULAR VOLUME 79.4 fl (80.0-96.0); MONO # 0.5 10^3/uL (0.0-0.8); MONO % 7.3 % (2.0-8.0); NEUTROPHILS # 4.9 10^3/uL (1.5-8.5); NEUTROPHILS % 69.4 % (36.0-66.0); PLATELET COUNT, AUTOMATED 310 10^3/uL (150-450); RED BLOOD COUNT 4.76 10^6/uL (4.00-5.40)
[2022-07-28] MEDS ORDERED: NS 500 ML IV ONE (16:40)
[2022-07-28] MEDS ORDERED: LIDOCAINE 2% 5ML JELLY UROJET TOP ONE (16:40)
[2022-07-28 17:16] LABS: ALBUMIN 3.4 GM/DL (3.2-5.2); ALT/SGPT 21 U/L (12-78); BILIRUBIN,TOTAL 0.5 MG/DL (0.2-1.0); BLOOD UREA NITROGEN 15 MG/DL (7-18); CALCIUM LEVEL 9.4 MG/DL (8.8-10.2); CARBON DIOXIDE LEVEL 28 MEQ/L (21-32); CHLORIDE LEVEL 102 MEQ/L (98-107); GLOMERULAR FILTRATION RATE > 60.0 (>45); GLUCOSE, FASTING 123 MG/DL (70-100); POTASSIUM SERUM 3.9 MEQ/L (3.5-5.1); SODIUM LEVEL 134 MEQ/L (136-145); TOTAL PROTEIN 7.3 GM/DL (6.4-8.2)
[2022-07-28 17:44] LABS: APPEARANCE, URINE MANUAL CLEAR (CLEAR); COLOR, URINE MANUAL YELLOW (YELLOW)
[2022-07-28 17:45] LABS: GLUCOSE, URINE (UA) MANUAL NEGATIVE (NEGATIVE); KETONE, URINE MANUAL NEGATIVE (NEGATIVE); PROTEIN, URINE MANUAL NEGATIVE (NEGATIVE)
[2022-07-28 17:46] LABS: BILIRUBIN, URINE MANUAL NEGATIVE (NEGATIVE); BLOOD URINE MANUAL POSITIVE (NEGATIVE); LEUKOCYTE ESTERASE, URINE MAN POSITIVE (NEGATIVE); NITRITE, URINE MANUAL NEGATIVE (NEGATIVE); UROBILINOGEN, URINE MANUAL NORMAL (NORMAL)
[2022-07-28 18:20] LABS: BACTERIA, URINE SMALL AMOUNT; HYALINE CAST, URINE NONE SEEN /lpf (0-1); RBC, URINE 0-1 /hpf (0-3); SQUAMOUS EPITHELIAL CELL URINE SMALL AMOUNT /hpf (SMALL AMT)
[2022-07-28] MEDS ORDERED: RA M10TA PO (20:42)
[2022-07-28] MEDS ORDERED: LANTINJ4 SC (20:42)
[2022-07-28] MEDS ORDERED: MIRA3350 PO (20:42)
[2022-07-28] MEDS ORDERED: HOME MED LIST COMPLETE! XX SCH (20:45)
[2022-07-28] MEDS ORDERED: GLUCOSE 4GM CHEW TABLET PO PRN (21:15)
[2022-07-28] MEDS ORDERED: GLUCAGON INJ 1MG VIAL SC PRN (21:15)
[2022-07-28] MEDS ORDERED: DEXTROSE 50% 50 ML SYRINGE IV PRN (21:15)
[2022-07-28 21:27] LABS: INR 1.15; PROTHROMBIN TIME 15.2 SECONDS (12.7-14.5)
[2022-07-28 21:28] LABS: PARTIAL THROMBOPLASTIN TIME 37.9 SECONDS (25.9-37.0)
[2022-07-28 21:40] LABS: RSV AMPLIFICATION NEGATIVE (NEGATIVE)
[2022-07-28] MEDS ORDERED: PILL CUTTER 1 EACH XX ONE (21:55)
[2022-07-28] MEDS: DOCUSATE SODIUM 100MG CAPSULE PO SCH (22:00)
[2022-07-28] MEDS: APIXABAN 5 MG TAB (ELIQUIS) PO SCH (22:00)
[2022-07-28] MEDS: risperiDONE 0.5 MG TAB PO SCH (22:00)
[2022-07-28] MEDS: RAMELTEON 8 MG TAB (ROZEREM) PO SCH (22:00)
[2022-07-28 23:07] VITALS: BP 124/54
[2022-07-28] MEDS ORDERED: PILL CUTTER 1 EACH XX PRN (23:10)
[2022-07-29 05:48] VITALS: BP 108/52
[2022-07-29 06:21] LABS: HEMATOCRIT 34.8 % (36.0-47.0); HEMOGLOBIN 11.2 g/dl (12.0-15.5); MEAN CORPUSCULAR HEMOGLOBIN 25.9 pg (27.0-33.0); MEAN CORPUSCULAR HGB CONC 32.2 g/dl (32.0-36.5); MEAN CORPUSCULAR VOLUME 80.4 fl (80.0-96.0); PLATELET COUNT, AUTOMATED 289 10^3/uL (150-450); RED BLOOD COUNT 4.33 10^6/uL (4.00-5.40); WHITE BLOOD COUNT 6.3 10^3/uL (4.0-10.0)
[2022-07-29 06:55] LABS: BLOOD UREA NITROGEN 16 MG/DL (7-18); CALCIUM LEVEL 8.8 MG/DL (8.8-10.2); CARBON DIOXIDE LEVEL 25 MEQ/L (21-32); CHLORIDE LEVEL 105 MEQ/L (98-107); CREATININE FOR GFR 0.84 MG/DL (0.55-1.30); GLOMERULAR FILTRATION RATE > 60.0 (>45); GLUCOSE, FASTING 78 MG/DL (70-100); POTASSIUM SERUM 4.2 MEQ/L (3.5-5.1); SODIUM LEVEL 136 MEQ/L (136-145)
[2022-07-29] MEDS: INSULIN LISPRO (NovoLOG) PER UNIT SC SCH ×4 (07:30→21:00)
[2022-07-29] MEDS ORDERED: MAGNESIUM OXIDE 400MG TAB (MAG-OX) PO SCH (09:00)
[2022-07-29] MEDS ORDERED: LEVEMIR (INSULIN DETEMIR) 1 UNITS/0.01ML SC SCH (09:00)
[2022-07-29] MEDS: ASPIRIN 81MG ENTERIC TABLET PO SCH (10:09)
[2022-07-29] MEDS: DOCUSATE SODIUM 100MG CAPSULE PO SCH ×2 (10:09→20:33)
[2022-07-29] MEDS: APIXABAN 5 MG TAB (ELIQUIS) PO SCH ×2 (10:09→20:34)
[2022-07-29 12:51] LABS: VITAMIN B12 LEVEL 687 PG/ML (247-911)
[2022-07-29 14:07] LABS: HEMOGLOBIN A1c 6.1 %
[2022-07-29] MEDS ORDERED: PROHANCE 279.3MG/ML 5ML VIAL As Ordered ONE (17:45)
[2022-07-29] MEDS ORDERED: PROHANCE 279.3MG/ML 15ML VIAL As Ordered ONE (17:46)
[2022-07-29 19:21] VITALS: BP 101/80
[2022-07-29] MEDS: risperiDONE 0.5 MG TAB PO SCH (20:33)
[2022-07-29] MEDS: RAMELTEON 8 MG TAB (ROZEREM) PO SCH (20:33)
[2022-07-29] MEDS: MIRALAX *UNIT DOSE* 17GM PACKET PO SCH (20:33)
[2022-07-30 05:53] VITALS: BP 122/61
[2022-07-30 06:59] LABS: MEAN CORPUSCULAR HEMOGLOBIN 25.9 pg (27.0-33.0); MEAN CORPUSCULAR HGB CONC 32.4 g/dl (32.0-36.5); MEAN CORPUSCULAR VOLUME 80.2 fl (80.0-96.0); PLATELET COUNT, AUTOMATED 272 10^3/uL (150-450); RED BLOOD COUNT 4.24 10^6/uL (4.00-5.40); WHITE BLOOD COUNT 5.7 10^3/uL (4.0-10.0)
[2022-07-30] MEDS: INSULIN LISPRO (NovoLOG) PER UNIT SC SCH ×4 (07:30→21:00)
[2022-07-30 07:36] LABS: BLOOD UREA NITROGEN 19 MG/DL (7-18); CALCIUM LEVEL 8.9 MG/DL (8.8-10.2); CARBON DIOXIDE LEVEL 26 MEQ/L (21-32); CHLORIDE LEVEL 103 MEQ/L (98-107); CREATININE FOR GFR 0.86 MG/DL (0.55-1.30); GLOMERULAR FILTRATION RATE > 60.0 (>45); GLUCOSE, FASTING 103 MG/DL (70-100); POTASSIUM SERUM 4.1 MEQ/L (3.5-5.1); SODIUM LEVEL 137 MEQ/L (136-145)
[2022-07-30] MEDS: APIXABAN 5 MG TAB (ELIQUIS) PO SCH ×2 (08:36→19:54)
[2022-07-30] MEDS: DOCUSATE SODIUM 100MG CAPSULE PO SCH ×2 (08:36→19:54)
[2022-07-30] MEDS: ASPIRIN 81MG ENTERIC TABLET PO SCH (08:36)
[2022-07-30] MEDS ORDERED: VITAMIN D 50,000 UNITS CAPSULE (ERGOCALCIFEROL 1.25MG) PO SCH (09:00)
[2022-07-30] MEDS ORDERED: LEVEMIR (INSULIN DETEMIR) 1 UNITS/0.01ML SC SCH (09:00)
[2022-07-30 14:00] VITALS: BP 115/80
[2022-07-30] MEDS: RAMELTEON 8 MG TAB (ROZEREM) PO SCH (19:53)
[2022-07-30] MEDS: MIRALAX *UNIT DOSE* 17GM PACKET PO SCH (19:54)
[2022-07-30] MEDS: risperiDONE 0.5 MG TAB PO SCH (19:54)
[2022-07-30] MEDS ORDERED: SIMETHICONE 80MG CHEW TAB PO PRN (22:25)
[2022-07-31 06:00] VITALS: BP 120/56
[2022-07-31] MEDS: ASPIRIN 81MG ENTERIC TABLET PO SCH (09:03)
[2022-07-31] MEDS: APIXABAN 5 MG TAB (ELIQUIS) PO SCH ×2 (09:03→21:03)
[2022-07-31] MEDS: DOCUSATE SODIUM 100MG CAPSULE PO SCH ×2 (09:03→21:03)
[2022-07-31] MEDS: LEVEMIR (INSULIN DETEMIR) 1 UNITS/0.01ML SC SCH (09:04)
[2022-07-31] MEDS: INSULIN LISPRO (NovoLOG) PER UNIT SC SCH ×4 (09:04→21:00)
[2022-07-31] MEDS: risperiDONE 0.5 MG TAB PO SCH (21:03)
[2022-07-31] MEDS: MIRALAX *UNIT DOSE* 17GM PACKET PO SCH (21:03)
[2022-07-31] MEDS: RAMELTEON 8 MG TAB (ROZEREM) PO SCH (21:03)
[2022-08-01 06:10] VITALS: BP 143/58
[2022-08-01] MEDS: APIXABAN 5 MG TAB (ELIQUIS) PO SCH ×2 (08:08→21:26)
[2022-08-01] MEDS: ASPIRIN 81MG ENTERIC TABLET PO SCH (08:08)
[2022-08-01] MEDS: DOCUSATE SODIUM 100MG CAPSULE PO SCH ×2 (08:08→21:26)
[2022-08-01] MEDS: ACETAMINOPHEN TAB 650MG DOSE (2X325MG) PO PRN (08:08)
[2022-08-01] MEDS: LEVEMIR (INSULIN DETEMIR) 1 UNITS/0.01ML SC SCH (08:09)
[2022-08-01] MEDS: INSULIN LISPRO (NovoLOG) PER UNIT SC SCH ×4 (08:09→21:00)
[2022-08-01] MEDS: RAMELTEON 8 MG TAB (ROZEREM) PO SCH (21:26)
[2022-08-01] MEDS: MIRALAX *UNIT DOSE* 17GM PACKET PO SCH (21:27)
[2022-08-01] MEDS: risperiDONE 0.5 MG TAB PO SCH (21:27)
[2022-08-02 02:14] VITALS: BP 142/56
[2022-08-02] MEDS: DOCUSATE SODIUM 100MG CAPSULE PO SCH ×2 (09:10→20:31)
[2022-08-02] MEDS: ASPIRIN 81MG ENTERIC TABLET PO SCH (09:10)
[2022-08-02] MEDS: LEVEMIR (INSULIN DETEMIR) 1 UNITS/0.01ML SC SCH (09:11)
[2022-08-02] MEDS: APIXABAN 5 MG TAB (ELIQUIS) PO SCH ×2 (09:12→20:30)
[2022-08-02] MEDS: INSULIN LISPRO (NovoLOG) PER UNIT SC SCH ×4 (09:12→21:00)
[2022-08-02] MEDS: ACETAMINOPHEN TAB 650MG DOSE (2X325MG) PO PRN (20:30)
[2022-08-02] MEDS: risperiDONE 0.5 MG TAB PO SCH (20:30)
[2022-08-02] MEDS: RAMELTEON 8 MG TAB (ROZEREM) PO SCH (20:30)
[2022-08-02] MEDS: MIRALAX *UNIT DOSE* 17GM PACKET PO SCH (20:31)
[2022-08-03 06:15] VITALS: BP 150/65
[2022-08-03] MEDS: ASPIRIN 81MG ENTERIC TABLET PO SCH (09:00)
[2022-08-03] MEDS: DOCUSATE SODIUM 100MG CAPSULE PO SCH (09:11)
[2022-08-03] MEDS: APIXABAN 5 MG TAB (ELIQUIS) PO SCH (09:11)
[2022-08-03] MEDS: LEVEMIR (INSULIN DETEMIR) 1 UNITS/0.01ML SC SCH (09:12)
[2022-08-03] MEDS: INSULIN LISPRO (NovoLOG) PER UNIT SC SCH (09:12)
[2022-08-03] MEDS ORDERED: SIME80TA16 PO (09:58)
[2022-08-03] MEDS ORDERED: INSUHUMDS SC (09:58)
[2022-08-03] MEDS ORDERED: INSUDET SC (09:58)
== END 2022-08-03 10:50 | DRG 57 ==
LOC: M ED 12:12 → M ED INP 19:29 → ENRESERV 21:04 → M MS5PR 22:50
PROVIDERS: ADMIT Family Medicine; ATTEND Internal Medicine
DX: G10 Huntington's disease (principal); E11.51 Type 2 diabetes mellitus with diabetic peripheral angiopathy without gangrene; I10 Essential (primary) hypertension; E78.5 Hyperlipidemia, unspecified; E11.40 Type 2 diabetes mellitus with diabetic neuropathy, unspecified; F39 Unspecified mood [affective] disorder; R29.6 Repeated falls; R26.89 Other abnormalities of gait and mobility; K59.00 Constipation, unspecified; E66.9 Obesity, unspecified; R82.71 Bacteriuria; Z79.01 Long term (current) use of anticoagulants; Z79.4 Long term (current) use of insulin; Z79.899 Other long term (current) drug therapy; Z88.8 Allergy status to other drugs, medicaments and biological substances; Z90.49 Acquired absence of other specified parts of digestive tract; Z86.711 Personal history of pulmonary embolism; Z89.422 Acquired absence of other left toe(s); Z68.39 Body mass index [BMI] 39.0-39.9, adult

== ENCOUNTER → 2022-08-04 | Outpatient (REF) ==
[~2022-08-04] MED LIST changes: +INSUHUMDS SC; +MIRA3350 PO; +RA M10TA PO; +SIME80TA16 PO
[2022-08-04 10:30] LABS: BASO % 0.7 % (0.0-1.0); EOS # 0.1 10^3/uL (0.0-0.5); EOS % 2.2 % (0.0-3.0); HEMATOCRIT 37.4 % (36.0-47.0); HEMOGLOBIN 11.9 g/dl (12.0-15.5); LYMPH % 18.2 % (24.0-44.0); MEAN CORPUSCULAR HEMOGLOBIN 25.6 pg (27.0-33.0); MEAN CORPUSCULAR HGB CONC 31.8 g/dl (32.0-36.5); MEAN CORPUSCULAR VOLUME 80.6 fl (80.0-96.0); MONO # 0.5 10^3/uL (0.0-0.8); NEUTROPHILS # 3.7 10^3/uL (1.5-8.5); NEUTROPHILS % 69.7 % (36.0-66.0); PLATELET COUNT, AUTOMATED 337 10^3/uL (150-450); RED BLOOD COUNT 4.64 10^6/uL (4.00-5.40); WHITE BLOOD COUNT 5.3 10^3/uL (4.0-10.0)
[2022-08-04 11:09] LABS: ALBUMIN 3.3 GM/DL (3.2-5.2); ALT/SGPT 18 U/L (12-78); BILIRUBIN,TOTAL 0.5 MG/DL (0.2-1.0); BLOOD UREA NITROGEN 18 MG/DL (7-18); CALCIUM LEVEL 9.3 MG/DL (8.8-10.2); CARBON DIOXIDE LEVEL 23 MEQ/L (21-32); CHLORIDE LEVEL 104 MEQ/L (98-107); CREATININE FOR GFR 0.79 MG/DL (0.55-1.30); GLOMERULAR FILTRATION RATE > 60.0 (>45); GLUCOSE, FASTING 182 MG/DL (70-100); MAGNESIUM LEVEL 1.7 MG/DL (1.8-2.4); POTASSIUM SERUM 3.9 MEQ/L (3.5-5.1); SODIUM LEVEL 136 MEQ/L (136-145); TOTAL PROTEIN 6.9 GM/DL (6.4-8.2)
== END ==
LOC: SKLAB5 09:15
PROVIDERS: ATTEND Nurse Practitioner Family
DX: E11.9 Type 2 diabetes mellitus without complications (principal)

== ENCOUNTER 2022-08-05 22:27 | Emergency (ER) | payer MEDICAID, MEDICARE ==
[~2022-08-05] VITALS: Ht 170.2 cm; Wt 78.0 kg
[2022-08-06 00:14] LABS: CK-MB VALUE MASS 1.4 NG/ML (<3.6); MB/CK RELATIVE INDEX 4.67 (< OR =4)
[2022-08-06 00:15] LABS: ALBUMIN 3.7 GM/DL (3.2-5.2); BILIRUBIN,DIRECT 0.3 MG/DL (0.0-0.2); BILIRUBIN,TOTAL 0.9 MG/DL (0.2-1.0); CALCIUM LEVEL 9.9 MG/DL (8.8-10.2); CREATININE FOR GFR 1.13 MG/DL (0.55-1.30); GLOMERULAR FILTRATION RATE 51.8 (>45); TOTAL PROTEIN 7.8 GM/DL (6.4-8.2)
[2022-08-06 00:23] LABS: BASO % 0.1 % (0.0-1.0); HEMATOCRIT 42.4 % (36.0-47.0); HEMOGLOBIN 13.5 g/dl (12.0-15.5); LYMPH # 0.6 10^3/uL (1.5-5.0); LYMPH % 4.4 % (24.0-44.0); MEAN CORPUSCULAR HEMOGLOBIN 25.4 pg (27.0-33.0); MEAN CORPUSCULAR HGB CONC 31.8 g/dl (32.0-36.5); MEAN CORPUSCULAR VOLUME 79.7 fl (80.0-96.0); MONO # 0.5 10^3/uL (0.0-0.8); MONO % 3.6 % (2.0-8.0); NEUTROPHILS # 13.1 10^3/uL (1.5-8.5); NEUTROPHILS % 91.4 % (36.0-66.0); PLATELET COUNT, AUTOMATED 447 10^3/uL (150-450); RED BLOOD COUNT 5.32 10^6/uL (4.00-5.40); WHITE BLOOD COUNT 14.4 10^3/uL (4.0-10.0)
[2022-08-06 03:30] LABS: CK-MB VALUE MASS 1.5 NG/ML (<3.6); MB/CK RELATIVE INDEX 3.12 (< OR =4)
[2022-08-06 06:06] VITALS: BP 186/81
== END 2022-08-06 06:24 | disposition home or self-care (01) ==
LOC: M ED 22:27
DX: K59.00 Constipation, unspecified (principal); E11.9 Type 2 diabetes mellitus without complications; M51.36 Other intervertebral disc degeneration, lumbar region; Z90.49 Acquired absence of other specified parts of digestive tract; G10 Huntington's disease; I10 Essential (primary) hypertension; Z88.8 Allergy status to other drugs, medicaments and biological substances; Z79.01 Long term (current) use of anticoagulants; Z79.4 Long term (current) use of insulin; Z79.899 Other long term (current) drug therapy

== ENCOUNTER 2022-08-07 22:44 | Inpatient (IN) | payer MEDICARE, MEDICAID ==
[~2022-08-07] VITALS: Ht 170.2 cm; Wt 129.5 kg
[2022-08-07] MEDS ORDERED: NS 1,000 ML IV ONE (23:10)
[2022-08-07] MEDS ORDERED: ONDANSETRON 4MG 2ML VIAL IV ONE (23:15)
[2022-08-07 23:26] LABS: BASO % 0.4 % (0.0-1.0); EOS # 0.1 10^3/uL (0.0-0.5); EOS % 0.5 % (0.0-3.0); HEMATOCRIT 40.4 % (36.0-47.0); HEMOGLOBIN 13.1 g/dl (12.0-15.5); LYMPH # 1.1 10^3/uL (1.5-5.0); LYMPH % 9.6 % (24.0-44.0); MEAN CORPUSCULAR HEMOGLOBIN 25.8 pg (27.0-33.0); MEAN CORPUSCULAR HGB CONC 32.4 g/dl (32.0-36.5); MEAN CORPUSCULAR VOLUME 79.5 fl (80.0-96.0); MONO # 0.8 10^3/uL (0.0-0.8); MONO % 6.8 % (2.0-8.0); NEUTROPHILS # 9.1 10^3/uL (1.5-8.5); NEUTROPHILS % 82.2 % (36.0-66.0); PLATELET COUNT, AUTOMATED 418 10^3/uL (150-450); RED BLOOD COUNT 5.08 10^6/uL (4.00-5.40)
[2022-08-08 00:02] LABS: CK-MB VALUE MASS < 1.0 NG/ML (<3.6); CPK CREATINE PHOSPHOKINASE 49 U/L (26-192); MB/CK RELATIVE INDEX 2.04 (< OR =4)
[2022-08-08 00:14] LABS: ALBUMIN 3.4 GM/DL (3.2-5.2); ALT/SGPT 21 U/L (12-78); BILIRUBIN,DIRECT < 0.1 MG/DL (0.0-0.2); BILIRUBIN,TOTAL 1.2 MG/DL (0.2-1.0); BLOOD UREA NITROGEN 37 MG/DL (7-18); CALCIUM LEVEL 9.4 MG/DL (8.8-10.2); CARBON DIOXIDE LEVEL 27 MEQ/L (21-32); CHLORIDE LEVEL 94 MEQ/L (98-107); GLOMERULAR FILTRATION RATE 48.3 (>45); GLUCOSE, FASTING 171 MG/DL (70-100); LIPASE 113 U/L (73-393); POTASSIUM SERUM 5.6 MEQ/L (3.5-5.1); SODIUM LEVEL 130 MEQ/L (136-145); TOTAL PROTEIN 7.3 GM/DL (6.4-8.2)
[2022-08-08 00:51] LABS: RSV AMPLIFICATION NEGATIVE (NEGATIVE)
[2022-08-08] MEDS ORDERED: MAGN400T33 PO (02:08)
[2022-08-08] MEDS ORDERED: FLEEENE12 PR (02:08)
[2022-08-08] MEDS ORDERED: DULC10SU2 PR (02:08)
[2022-08-08] MEDS ORDERED: LANTINJ4 INJ (02:08)
[2022-08-08] MEDS ORDERED: SIME80CH6 PO (02:08)
[2022-08-08] MEDS ORDERED: MIRA3350 PO (02:08)
[2022-08-08] MEDS ORDERED: MILKSUS3 PO (02:08)
[2022-08-08] MEDS ORDERED: ACET-910 PO (02:08)
[2022-08-08] MEDS ORDERED: ONDA-83 PO (02:08)
[2022-08-08] MEDS ORDERED: HOME MED LIST COMPLETE! XX SCH (02:10)
[2022-08-08] MEDS ORDERED: GLUCOSE 4GM CHEW TABLET PO PRN (02:35)
[2022-08-08] MEDS ORDERED: HYDROMORPHONE HCL 0.5 MG/ 0.5 ML SYRINGE (J1170 PER 1) IV PRN (02:35)
[2022-08-08] MEDS ORDERED: GLUCAGON INJ 1MG VIAL SC PRN (02:35)
[2022-08-08] MEDS ORDERED: NS 1,000 ML IV SCH (02:35)
[2022-08-08] MEDS ORDERED: DEXTROSE 50% 50 ML SYRINGE IV PRN (02:35)
[2022-08-08] MEDS: INSULIN LISPRO (NovoLOG) PER UNIT SC SCH ×3 (06:00→18:00)
[2022-08-08 08:25] LABS: BASO % 0.3 % (0.0-1.0); EOS # 0.1 10^3/uL (0.0-0.5); EOS % 0.7 % (0.0-3.0); HEMATOCRIT 37.4 % (36.0-47.0); HEMOGLOBIN 11.8 g/dl (12.0-15.5); LYMPH # 1.3 10^3/uL (1.5-5.0); LYMPH % 12.5 % (24.0-44.0); MEAN CORPUSCULAR HEMOGLOBIN 25.3 pg (27.0-33.0); MEAN CORPUSCULAR HGB CONC 31.6 g/dl (32.0-36.5); MEAN CORPUSCULAR VOLUME 80.3 fl (80.0-96.0); MONO # 0.8 10^3/uL (0.0-0.8); MONO % 7.5 % (2.0-8.0); NEUTROPHILS # 7.9 10^3/uL (1.5-8.5); NEUTROPHILS % 78.7 % (36.0-66.0); PLATELET COUNT, AUTOMATED 417 10^3/uL (150-450); RED BLOOD COUNT 4.66 10^6/uL (4.00-5.40)
[2022-08-08 08:55] LABS: CREATININE FOR GFR 1.1 MG/DL (0.55-1.30); GLOMERULAR FILTRATION RATE 53.4 (>45); POTASSIUM SERUM 3.9 MEQ/L (3.5-5.1)
[2022-08-08] MEDS ORDERED: ENOXAPARIN 120MG/0.8ML SYRINGE (J1650 PER 10MG) SC SCH (09:00)
[2022-08-08] MEDS ORDERED: FLEET ENEMA PR SCH (09:00)
[2022-08-08 13:04] VITALS: BP 120/62
[2022-08-08] MEDS ORDERED: LIQUID POLIBAR PLUS 105% w/v 750ML BTL As Ordered ONE ×2 (14:26→14:48)
[2022-08-09 06:00] VITALS: BP 175/96
[2022-08-09] MEDS: INSULIN LISPRO (NovoLOG) PER UNIT SC SCH ×5 (06:00→23:50)
[2022-08-09] MEDS: NS 1,000 ML IV SCH ×2 (06:28→15:40)
[2022-08-09 06:41] LABS: BASO % 0.5 % (0.0-1.0); EOS # 0.1 10^3/uL (0.0-0.5); EOS % 1.1 % (0.0-3.0); HEMATOCRIT 35.4 % (36.0-47.0); HEMOGLOBIN 11.1 g/dl (12.0-15.5); LYMPH # 1.4 10^3/uL (1.5-5.0); LYMPH % 16.8 % (24.0-44.0); MEAN CORPUSCULAR HEMOGLOBIN 25.5 pg (27.0-33.0); MEAN CORPUSCULAR HGB CONC 31.4 g/dl (32.0-36.5); MEAN CORPUSCULAR VOLUME 81.4 fl (80.0-96.0); MONO # 0.7 10^3/uL (0.0-0.8); MONO % 8.3 % (2.0-8.0); NEUTROPHILS % 73.1 % (36.0-66.0); PLATELET COUNT, AUTOMATED 325 10^3/uL (150-450); RED BLOOD COUNT 4.35 10^6/uL (4.00-5.40); WHITE BLOOD COUNT 8.2 10^3/uL (4.0-10.0)
[2022-08-09 07:06] LABS: BLOOD UREA NITROGEN 25 MG/DL (7-18); CALCIUM LEVEL 8.6 MG/DL (8.8-10.2); CARBON DIOXIDE LEVEL 30 MEQ/L (21-32); CHLORIDE LEVEL 101 MEQ/L (98-107); CREATININE FOR GFR 0.74 MG/DL (0.55-1.30); GLOMERULAR FILTRATION RATE > 60.0 (>45); GLUCOSE, FASTING 127 MG/DL (70-100); POTASSIUM SERUM 3.4 MEQ/L (3.5-5.1); SODIUM LEVEL 136 MEQ/L (136-145)
[2022-08-09] MEDS ORDERED: KCL 10MEQ/100ML SWI (KRUN) 10 MEQ in IV 1 EA IV ONE (08:00)
[2022-08-09] MEDS ORDERED: FLUBLOK(EGG FREE)(QUAD)INFLUENZA VACC 0.5ML SYRINGE 18YRS & OLDER IM.IMMUN ONE (09:00)
[2022-08-09 14:00] VITALS: BP 142/72
[2022-08-09] MEDS: MIRALAX *UNIT DOSE* 17GM PACKET PO SCH ×2 (14:05→20:01)
[2022-08-09] MEDS ORDERED: ACETAMINOPHEN 500 MG TAB PO PRN (15:50)
[2022-08-09 20:00] VITALS: BP 133/66
[2022-08-09] MEDS: APIXABAN 5 MG TAB (ELIQUIS) PO SCH (20:01)
[2022-08-10] MEDS: ONDANSETRON 4MG 2ML VIAL IV PRN (01:33)
[2022-08-10] MEDS: NS 1,000 ML IV SCH ×2 (03:34→13:05)
[2022-08-10 06:00] VITALS: BP 133/57
[2022-08-10] MEDS: INSULIN LISPRO (NovoLOG) PER UNIT SC SCH ×4 (06:13→23:45)
[2022-08-10 07:43] LABS: BASO % 0.2 % (0.0-1.0); EOS # 0.1 10^3/uL (0.0-0.5); HEMATOCRIT 34.6 % (36.0-47.0); HEMOGLOBIN 10.9 g/dl (12.0-15.5); LYMPH # 1.1 10^3/uL (1.5-5.0); LYMPH % 13.2 % (24.0-44.0); MEAN CORPUSCULAR HEMOGLOBIN 25.8 pg (27.0-33.0); MEAN CORPUSCULAR HGB CONC 31.5 g/dl (32.0-36.5); MONO # 0.7 10^3/uL (0.0-0.8); MONO % 8.8 % (2.0-8.0); NEUTROPHILS # 6.2 10^3/uL (1.5-8.5); NEUTROPHILS % 76.3 % (36.0-66.0); PLATELET COUNT, AUTOMATED 341 10^3/uL (150-450); RED BLOOD COUNT 4.22 10^6/uL (4.00-5.40); WHITE BLOOD COUNT 8.1 10^3/uL (4.0-10.0)
[2022-08-10] MEDS: ASPIRIN 81MG ENTERIC TABLET PO SCH (08:08)
[2022-08-10 08:09] LABS: BLOOD UREA NITROGEN 14 MG/DL (7-18); CALCIUM LEVEL 8.5 MG/DL (8.8-10.2); CARBON DIOXIDE LEVEL 28 MEQ/L (21-32); CHLORIDE LEVEL 101 MEQ/L (98-107); CREATININE FOR GFR 0.66 MG/DL (0.55-1.30); GLOMERULAR FILTRATION RATE > 60.0 (>45); GLUCOSE, FASTING 111 MG/DL (70-100); POTASSIUM SERUM 3.3 MEQ/L (3.5-5.1); SODIUM LEVEL 134 MEQ/L (136-145)
[2022-08-10] MEDS: APIXABAN 5 MG TAB (ELIQUIS) PO SCH ×2 (08:09→20:41)
[2022-08-10] MEDS: MIRALAX *UNIT DOSE* 17GM PACKET PO SCH ×3 (08:10→20:48)
[2022-08-10] MEDS ORDERED: POTASSIUM CHLORIDE 10MEQ SR TABLET PO ONE (08:15)
[2022-08-10 14:00] VITALS: BP 134/79
[2022-08-10 20:57] VITALS: BP 103/48
[2022-08-11] MEDS: ONDANSETRON 4MG 2ML VIAL IV PRN (03:31)
[2022-08-11 06:14] VITALS: BP 123/99
[2022-08-11 06:58] LABS: BASO % 0.3 % (0.0-1.0); EOS # 0.1 10^3/uL (0.0-0.5); EOS % 0.9 % (0.0-3.0); HEMATOCRIT 34.6 % (36.0-47.0); LYMPH # 1.1 10^3/uL (1.5-5.0); LYMPH % 10.8 % (24.0-44.0); MEAN CORPUSCULAR HEMOGLOBIN 25.7 pg (27.0-33.0); MEAN CORPUSCULAR HGB CONC 31.8 g/dl (32.0-36.5); MEAN CORPUSCULAR VOLUME 80.8 fl (80.0-96.0); MONO # 0.6 10^3/uL (0.0-0.8); MONO % 6.4 % (2.0-8.0); NEUTROPHILS # 8.1 10^3/uL (1.5-8.5); NEUTROPHILS % 81.1 % (36.0-66.0); PLATELET COUNT, AUTOMATED 321 10^3/uL (150-450); RED BLOOD COUNT 4.28 10^6/uL (4.00-5.40); WHITE BLOOD COUNT 9.9 10^3/uL (4.0-10.0)
[2022-08-11 07:23] LABS: BLOOD UREA NITROGEN 11 MG/DL (7-18); CALCIUM LEVEL 8.7 MG/DL (8.8-10.2); CARBON DIOXIDE LEVEL 27 MEQ/L (21-32); CHLORIDE LEVEL 101 MEQ/L (98-107); GLOMERULAR FILTRATION RATE > 60.0 (>45); GLUCOSE, FASTING 136 MG/DL (70-100); POTASSIUM SERUM 3.6 MEQ/L (3.5-5.1); SODIUM LEVEL 133 MEQ/L (136-145)
[2022-08-11] MEDS: MIRALAX *UNIT DOSE* 17GM PACKET PO SCH ×3 (09:00→20:35)
[2022-08-11] MEDS: APIXABAN 5 MG TAB (ELIQUIS) PO SCH ×2 (09:26→20:36)
[2022-08-11] MEDS: ASPIRIN 81MG ENTERIC TABLET PO SCH (09:26)
[2022-08-11] MEDS: INSULIN LISPRO (NovoLOG) PER UNIT SC SCH ×4 (09:28→20:36)
[2022-08-11 14:00] VITALS: BP_SYST 127; BP_SYST 155; BP_DIAS 58; BP_DIAS 60
[2022-08-11] MEDS ORDERED: RAMELTEON 8 MG TAB (ROZEREM) PO PRN (20:05)
[2022-08-11 22:00] VITALS: BP 144/52
[2022-08-12 06:00] VITALS: BP 123/54
[2022-08-12] MEDS: INSULIN LISPRO (NovoLOG) PER UNIT SC SCH ×2 (07:30→11:54)
[2022-08-12 07:31] LABS: BASO % 0.3 % (0.0-1.0); EOS # 0.1 10^3/uL (0.0-0.5); EOS % 1.4 % (0.0-3.0); HEMATOCRIT 36.2 % (36.0-47.0); HEMOGLOBIN 11.5 g/dl (12.0-15.5); LYMPH # 1.3 10^3/uL (1.5-5.0); LYMPH % 16.4 % (24.0-44.0); MEAN CORPUSCULAR HEMOGLOBIN 25.8 pg (27.0-33.0); MEAN CORPUSCULAR HGB CONC 31.8 g/dl (32.0-36.5); MEAN CORPUSCULAR VOLUME 81.3 fl (80.0-96.0); MONO # 0.6 10^3/uL (0.0-0.8); MONO % 7.9 % (2.0-8.0); NEUTROPHILS # 5.6 10^3/uL (1.5-8.5); NEUTROPHILS % 73.5 % (36.0-66.0); PLATELET COUNT, AUTOMATED 349 10^3/uL (150-450); RED BLOOD COUNT 4.45 10^6/uL (4.00-5.40); WHITE BLOOD COUNT 7.7 10^3/uL (4.0-10.0)
[2022-08-12 07:52] LABS: BLOOD UREA NITROGEN 8 MG/DL (7-18); CALCIUM LEVEL 8.5 MG/DL (8.8-10.2); CARBON DIOXIDE LEVEL 28 MEQ/L (21-32); CHLORIDE LEVEL 102 MEQ/L (98-107); CREATININE FOR GFR 0.69 MG/DL (0.55-1.30); GLOMERULAR FILTRATION RATE > 60.0 (>45); GLUCOSE, FASTING 125 MG/DL (70-100); POTASSIUM SERUM 3.7 MEQ/L (3.5-5.1); SODIUM LEVEL 135 MEQ/L (136-145)
[2022-08-12] MEDS: MIRALAX *UNIT DOSE* 17GM PACKET PO SCH (09:05)
[2022-08-12] MEDS: ASPIRIN 81MG ENTERIC TABLET PO SCH (09:05)
[2022-08-12] MEDS: APIXABAN 5 MG TAB (ELIQUIS) PO SCH (09:05)
[2022-08-12] MEDS ORDERED: MIRA3350 PO (11:08)
== END 2022-08-12 14:00 | DRG 389 ==
LOC: M ED 22:44 → M ED INP 08-08 02:35 → ENRESERV 08-08 12:07 → M MSPAV 08-08 13:58
PROVIDERS: ADMIT Internal Medicine; ATTEND Family Medicine
DX: K56.41 Fecal impaction (principal); G10 Huntington's disease; N17.9 Acute kidney failure, unspecified; E87.1 Hypo-osmolality and hyponatremia; Z79.4 Long term (current) use of insulin; Z79.01 Long term (current) use of anticoagulants; Z79.82 Long term (current) use of aspirin; Z88.8 Allergy status to other drugs, medicaments and biological substances; E87.5 Hyperkalemia; Z86.718 Personal history of other venous thrombosis and embolism; E11.51 Type 2 diabetes mellitus with diabetic peripheral angiopathy without gangrene; L89.899 Pressure ulcer of other site, unspecified stage; L89.159 Pressure ulcer of sacral region, unspecified stage

== ENCOUNTER → 2022-08-31 | Outpatient (REF) | payer MEDICARE, MEDICAID ==
[~2022-08-31] MED LIST changes: +ACET-910 PO; +CLOP75TA99 PO; +DULC10SU2 PR; +FLEEENE12 PR; +INSUHUMDS SQ; +LANTINJ4 INJ; +MAGN400T33 PO; +MILKSUS3 PO; +ONDA-83 PO; +PATIENT COMMENT; -PLAV1TAB2 PO; +SIME80CH6 PO
== END ==
LOC: SKLAB5 12:03
PROVIDERS: ATTEND Nurse Practitioner Family
DX: R10.9 Unspecified abdominal pain (principal); R11.2 Nausea with vomiting, unspecified

== ENCOUNTER 2022-09-01 00:34 | Inpatient (IN) | payer MEDICARE, MEDICAID ==
[~2022-09-01] VITALS: Ht 170.2 cm; Wt 117.0 kg
[~2022-09-01 00:34] MED LIST changes: -INSUHUMDS SQ; -PATIENT COMMENT
[2022-09-01] MEDS ORDERED: ISOVUE-370 76% 100ML VIAL As Ordered ONE (01:33)
[2022-09-01 01:54] LABS: BASO % 0.4 % (0.0-1.0); EOS % 0.4 % (0.0-3.0); HEMATOCRIT 39.4 % (36.0-47.0); HEMOGLOBIN 12.1 g/dl (12.0-15.5); LYMPH # 0.8 10^3/uL (1.5-5.0); LYMPH % 15.9 % (24.0-44.0); MEAN CORPUSCULAR HEMOGLOBIN 25.4 pg (27.0-33.0); MEAN CORPUSCULAR HGB CONC 30.7 g/dl (32.0-36.5); MEAN CORPUSCULAR VOLUME 82.6 fl (80.0-96.0); MONO # 0.6 10^3/uL (0.0-0.8); MONO % 10.4 % (2.0-8.0); NEUTROPHILS # 3.8 10^3/uL (1.5-8.5); NEUTROPHILS % 72.5 % (36.0-66.0); PLATELET COUNT, AUTOMATED 262 10^3/uL (150-450); RED BLOOD COUNT 4.77 10^6/uL (4.00-5.40); WHITE BLOOD COUNT 5.3 10^3/uL (4.0-10.0)
[2022-09-01 02:07] LABS: RSV AMPLIFICATION NEGATIVE (NEGATIVE)
[2022-09-01 02:37] LABS: ALBUMIN 2.7 GM/DL (3.2-5.2); ALT/SGPT 15 U/L (12-78); BILIRUBIN,DIRECT < 0.1 MG/DL (0.0-0.2); BILIRUBIN,TOTAL 0.6 MG/DL (0.2-1.0); BLOOD UREA NITROGEN 10 MG/DL (7-18); CALCIUM LEVEL 8.8 MG/DL (8.8-10.2); CARBON DIOXIDE LEVEL 22 MEQ/L (21-32); CHLORIDE LEVEL 100 MEQ/L (98-107); GLOMERULAR FILTRATION RATE > 60.0 (>45); GLUCOSE, FASTING 219 MG/DL (70-100); LIPASE 134 U/L (73-393); POTASSIUM SERUM 4.3 MEQ/L (3.5-5.1); SODIUM LEVEL 129 MEQ/L (136-145); TOTAL PROTEIN 6.7 GM/DL (6.4-8.2)
[2022-09-01] MEDS ORDERED: INSUHUMDS SQ (04:20)
[2022-09-01] MEDS ORDERED: MIRA3350 PO (04:20)
[2022-09-01] MEDS ORDERED: PATIENT COMMENT (04:21)
[2022-09-01] MEDS ORDERED: INSUHUMDS SC (04:26)
[2022-09-01] MEDS ORDERED: HOME MED LIST COMPLETE! XX SCH (04:30)
[2022-09-01] MEDS ORDERED: GLUCAGON INJ 1MG VIAL SC PRN (05:25)
[2022-09-01] MEDS ORDERED: DEXTROSE 50% 50 ML SYRINGE IV PRN (05:25)
[2022-09-01] MEDS ORDERED: GLUCOSE 4GM CHEW TABLET PO PRN (05:25)
[2022-09-01] MEDS ORDERED: ONDANSETRON 4MG 2ML VIAL IV PRN (05:25)
[2022-09-01] MEDS ORDERED: ENOXAPARIN 120MG/0.8ML SYRINGE (J1650 PER 10MG) SC SCH (06:00)
[2022-09-01] MEDS ORDERED: MORPHINE 2 MG/ML 1ML VIAL IV PRN (06:00)
[2022-09-01 06:14] LABS: INR 1.24; PROTHROMBIN TIME 15.9 SECONDS (12.5-14.5)
[2022-09-01 06:15] LABS: PARTIAL THROMBOPLASTIN TIME 36.3 SECONDS (24.8-34.2)
[2022-09-01 06:17] LABS: D-DIMER QUANT 580.61 ng/ml (<500)
[2022-09-01] MEDS: INSULIN LISPRO (NovoLOG) PER UNIT SC SCH ×4 (06:17→21:00)
[2022-09-01] MEDS: NS 1,000 ML IV SCH ×2 (06:17→21:43)
[2022-09-01 06:57] LABS: ALBUMIN 2.6 GM/DL (3.2-5.2); BILIRUBIN,DIRECT 0.2 MG/DL (0.0-0.2); BILIRUBIN,TOTAL 0.5 MG/DL (0.2-1.0); C REACTIVE PROTEIN QUANTITATIV 0.99 MG/DL (0.00-0.30); MAGNESIUM LEVEL 1.6 MG/DL (1.8-2.4)
[2022-09-01] MEDS ORDERED: BISACODYL 10 MG SUPP PR SCH (09:00)
[2022-09-01 09:49] VITALS: BP 143/66
[2022-09-01 11:05] LABS: BLOOD UREA NITROGEN 13 MG/DL (7-18); CALCIUM LEVEL 9.1 MG/DL (8.8-10.2); CARBON DIOXIDE LEVEL 29 MEQ/L (21-32); CHLORIDE LEVEL 100 MEQ/L (98-107); CREATININE FOR GFR 0.88 MG/DL (0.55-1.30); GLOMERULAR FILTRATION RATE > 60.0 (>45); GLUCOSE, FASTING 162 MG/DL (70-100); POTASSIUM SERUM 3.8 MEQ/L (3.5-5.1); SODIUM LEVEL 133 MEQ/L (136-145)
[2022-09-01 12:26] VITALS: BP 153/62
[2022-09-01] MEDS ORDERED: MAG SULF 1GM/100ML (MAG RUN) 1 GM in IV 1 EA IV ONE (13:05)
[2022-09-01] MEDS ORDERED: SIMETHICONE 80MG CHEW TAB PO PRN (13:35)
[2022-09-01] MEDS: MIRALAX *UNIT DOSE* 17GM PACKET PO SCH (14:24)
[2022-09-01] MEDS: MAGNESIUM OXIDE 400MG TAB (MAG-OX) PO SCH ×2 (14:24→21:41)
[2022-09-01] MEDS: ASPIRIN 81MG ENTERIC TABLET PO SCH (14:24)
[2022-09-01] MEDS ORDERED: RISP0.253 PO (14:44)
[2022-09-01] MEDS ORDERED: MILKSUS3 PO (14:44)
[2022-09-01] MEDS ORDERED: ONDA-83 PO (14:44)
[2022-09-01] MEDS ORDERED: ELIQ5TAB PO (14:44)
[2022-09-01] MEDS ORDERED: BISACODYL 10 MG SUPP PR PRN (15:00)
[2022-09-01] MEDS ORDERED: PILL CUTTER 1 EACH XX PRN (15:05)
[2022-09-01 15:17] LABS: BLOOD UREA NITROGEN 13 MG/DL (7-18); CALCIUM LEVEL 8.8 MG/DL (8.8-10.2); CARBON DIOXIDE LEVEL 28 MEQ/L (21-32); CHLORIDE LEVEL 100 MEQ/L (98-107); CREATININE FOR GFR 0.85 MG/DL (0.55-1.30); GLOMERULAR FILTRATION RATE > 60.0 (>45); GLUCOSE, FASTING 202 MG/DL (70-100); POTASSIUM SERUM 3.4 MEQ/L (3.5-5.1); SODIUM LEVEL 135 MEQ/L (136-145)
[2022-09-01] MEDS ORDERED: POTASSIUM CHLORIDE 10MEQ SR TABLET PO ONE (18:35)
[2022-09-01 19:19] LABS: BLOOD UREA NITROGEN 13 MG/DL (7-18); CALCIUM LEVEL 8.6 MG/DL (8.8-10.2); CARBON DIOXIDE LEVEL 26 MEQ/L (21-32); CHLORIDE LEVEL 100 MEQ/L (98-107); CREATININE FOR GFR 0.83 MG/DL (0.55-1.30); GLOMERULAR FILTRATION RATE > 60.0 (>45); GLUCOSE, FASTING 233 MG/DL (70-100); POTASSIUM SERUM 3.5 MEQ/L (3.5-5.1); SODIUM LEVEL 134 MEQ/L (136-145)
[2022-09-01 20:00] VITALS: BP 156/58
[2022-09-01] MEDS: APIXABAN 5 MG TAB (ELIQUIS) PO SCH (21:40)
[2022-09-01] MEDS: risperiDONE 0.5 MG TAB PO SCH (21:41)
[2022-09-02 05:00] VITALS: BP 169/79
[2022-09-02] MEDS: NS 1,000 ML IV SCH ×2 (06:00→08:16)
[2022-09-02] MEDS: ACETAMINOPHEN TAB 650MG DOSE (2X325MG) PO PRN (06:07)
[2022-09-02 06:38] LABS: BASO % 0.5 % (0.0-1.0); HEMATOCRIT 39.2 % (36.0-47.0); HEMOGLOBIN 12.3 g/dl (12.0-15.5); LYMPH # 0.9 10^3/uL (1.5-5.0); LYMPH % 13.9 % (24.0-44.0); MEAN CORPUSCULAR HEMOGLOBIN 25.8 pg (27.0-33.0); MEAN CORPUSCULAR HGB CONC 31.4 g/dl (32.0-36.5); MEAN CORPUSCULAR VOLUME 82.2 fl (80.0-96.0); MONO # 0.6 10^3/uL (0.0-0.8); MONO % 9.8 % (2.0-8.0); NEUTROPHILS # 4.8 10^3/uL (1.5-8.5); NEUTROPHILS % 75.6 % (36.0-66.0); PLATELET COUNT, AUTOMATED 254 10^3/uL (150-450); RED BLOOD COUNT 4.77 10^6/uL (4.00-5.40); WHITE BLOOD COUNT 6.3 10^3/uL (4.0-10.0)
[2022-09-02 07:13] LABS: BLOOD UREA NITROGEN 13 MG/DL (7-18); CALCIUM LEVEL 8.1 MG/DL (8.8-10.2); CARBON DIOXIDE LEVEL 25 MEQ/L (21-32); CHLORIDE LEVEL 101 MEQ/L (98-107); CREATININE FOR GFR 0.79 MG/DL (0.55-1.30); GLOMERULAR FILTRATION RATE > 60.0 (>45); GLUCOSE, FASTING 254 MG/DL (70-100); MAGNESIUM LEVEL 1.7 MG/DL (1.8-2.4); POTASSIUM SERUM 3.6 MEQ/L (3.5-5.1); SODIUM LEVEL 134 MEQ/L (136-145)
[2022-09-02 08:01] LABS: HEMOGLOBIN A1c 6.4 %
[2022-09-02] MEDS: ASPIRIN 81MG ENTERIC TABLET PO SCH (08:15)
[2022-09-02] MEDS: APIXABAN 5 MG TAB (ELIQUIS) PO SCH ×2 (08:16→22:54)
[2022-09-02] MEDS: MAGNESIUM OXIDE 400MG TAB (MAG-OX) PO SCH ×2 (08:16→22:55)
[2022-09-02] MEDS: INSULIN LISPRO (NovoLOG) PER UNIT SC SCH ×4 (08:16→21:00)
[2022-09-02] MEDS: MIRALAX *UNIT DOSE* 17GM PACKET PO SCH (08:17)
[2022-09-02] MEDS ORDERED: ALBUTEROL 90 MCG/ACT 8GM HFA INHALER INH PRN ×2 (10:20→11:30)
[2022-09-02] MEDS ORDERED: EPINEPHrine INJ 1 MG/ML 1ML AMP IM PRN ×2 (10:20→11:30)
[2022-09-02] MEDS ORDERED: methylPREDNISolone 125MG 2ML VIAL IV PRN ×2 (10:20→11:30)
[2022-09-02] MEDS ORDERED: ALBUTEROL SULFATE 2.5 MG/0.5 ML INH NEB SOLN INH PRN ×2 (10:20→11:30)
[2022-09-02] MEDS ORDERED: diphenhydrAMINE 50MG/ML VIAL IV PRN ×2 (10:20→11:30)
[2022-09-02] MEDS ORDERED: NS 1,000 ML IV SCH (10:20)
[2022-09-02 12:00] VITALS: BP 143/63
[2022-09-02] MEDS ORDERED: BEBTELOVIMAB 175MG 2ML VIAL (EUA) IV ONE (12:00)
[2022-09-02 17:30] VITALS: BP 142/78
[2022-09-02 21:20] VITALS: BP 122/57
[2022-09-02] MEDS: risperiDONE 0.5 MG TAB PO SCH (22:55)
[2022-09-03] MEDS ORDERED: dexameTHASONE 4 MG/ML 1ML VIAL (J1100 PER 1MG) IV SCH (01:00)
[2022-09-03 02:40] VITALS: O2SAT 92
[2022-09-03] MEDS ORDERED: REMDESIVIR 200 MG in NS 250 ML IV ONE (03:00)
[2022-09-03 05:00] VITALS: BP 143/45
[2022-09-03] MEDS ORDERED: SODIUM CHLORIDE 0.9% INJ 10 ML SYR IV ONE (05:00)
[2022-09-03 06:42] LABS: VENOUS BASE EXCESS 0.9 (-2.0-2.0); VENOUS HCO3 25.4 MEQ/L (23.0-27.0); VENOUS PARTIAL PRESSURE CO2 40.3 mmHg (38.0-50.0); VENOUS PARTIAL PRESSURE O2 109.9 mmHg (30.0-50.0); VENOUS PH 7.418 UNITS (7.330-7.430); VENOUS STANDARD HCO3 25.3 MEQ/L; VENOUS TOTAL CO2 26.7 MEQ/L (24.0-28.0)
[2022-09-03 06:57] LABS: BASO % 0.2 % (0.0-1.0); EOS % 0.4 % (0.0-3.0); HEMATOCRIT 37.4 % (36.0-47.0); HEMOGLOBIN 11.5 g/dl (12.0-15.5); LYMPH # 0.4 10^3/uL (1.5-5.0); LYMPH % 9.4 % (24.0-44.0); MEAN CORPUSCULAR HEMOGLOBIN 25.5 pg (27.0-33.0); MEAN CORPUSCULAR HGB CONC 30.7 g/dl (32.0-36.5); MEAN CORPUSCULAR VOLUME 82.9 fl (80.0-96.0); MONO # 0.1 10^3/uL (0.0-0.8); MONO % 2.9 % (2.0-8.0); NEUTROPHILS # 3.9 10^3/uL (1.5-8.5); NEUTROPHILS % 86.7 % (36.0-66.0); PLATELET COUNT, AUTOMATED 209 10^3/uL (150-450); RED BLOOD COUNT 4.51 10^6/uL (4.00-5.40); WHITE BLOOD COUNT 4.5 10^3/uL (4.0-10.0)
[2022-09-03 07:21] LABS: BLOOD UREA NITROGEN 15 MG/DL (7-18); CALCIUM LEVEL 8.2 MG/DL (8.8-10.2); CARBON DIOXIDE LEVEL 23 MEQ/L (21-32); CHLORIDE LEVEL 103 MEQ/L (98-107); CREATININE FOR GFR 0.64 MG/DL (0.55-1.30); GLOMERULAR FILTRATION RATE > 60.0 (>45); GLUCOSE, FASTING 277 MG/DL (70-100); POTASSIUM SERUM 3.8 MEQ/L (3.5-5.1); SODIUM LEVEL 133 MEQ/L (136-145)
[2022-09-03 07:26] LABS: ALBUMIN 2.5 GM/DL (3.2-5.2); BILIRUBIN,DIRECT 0.2 MG/DL (0.0-0.2); BILIRUBIN,TOTAL 0.3 MG/DL (0.2-1.0)
[2022-09-03] MEDS: MIRALAX *UNIT DOSE* 17GM PACKET PO SCH (08:53)
[2022-09-03 09:00] VITALS: O2SAT 93
[2022-09-03] MEDS: MAGNESIUM OXIDE 400MG TAB (MAG-OX) PO SCH ×2 (09:04→21:27)
[2022-09-03] MEDS: ASPIRIN 81MG ENTERIC TABLET PO SCH (09:04)
[2022-09-03] MEDS: INSULIN LISPRO (NovoLOG) PER UNIT SC SCH ×4 (09:05→21:00)
[2022-09-03] MEDS: APIXABAN 5 MG TAB (ELIQUIS) PO SCH ×2 (09:05→21:27)
[2022-09-03 14:00] VITALS: BP 105/61
[2022-09-03 20:06] LABS: CLOSTRIDIUM DIFFICILE PCR NEGATIVE (NEGATIVE)
[2022-09-03 21:07] VITALS: BP 108/59
[2022-09-03] MEDS: risperiDONE 0.5 MG TAB PO SCH (21:27)
[2022-09-04 01:32] VITALS: O2SAT 95
[2022-09-04] MEDS: REMDESIVIR 100 MG in NS 250 ML IV SCH (04:27)
[2022-09-04 05:00] VITALS: BP 105/59
[2022-09-04] MEDS: SODIUM CHLORIDE 0.9% INJ 10 ML SYR IV SCH (05:47)
[2022-09-04 06:37] LABS: BASO % 0.2 % (0.0-1.0); EOS # 0.1 10^3/uL (0.0-0.5); EOS % 1.4 % (0.0-3.0); HEMATOCRIT 34.3 % (36.0-47.0); HEMOGLOBIN 10.8 g/dl (12.0-15.5); LYMPH # 1.6 10^3/uL (1.5-5.0); LYMPH % 34.9 % (24.0-44.0); MEAN CORPUSCULAR HEMOGLOBIN 25.8 pg (27.0-33.0); MEAN CORPUSCULAR HGB CONC 31.5 g/dl (32.0-36.5); MEAN CORPUSCULAR VOLUME 81.9 fl (80.0-96.0); MONO # 0.4 10^3/uL (0.0-0.8); MONO % 8.3 % (2.0-8.0); NEUTROPHILS # 2.4 10^3/uL (1.5-8.5); PLATELET COUNT, AUTOMATED 207 10^3/uL (150-450); RED BLOOD COUNT 4.19 10^6/uL (4.00-5.40); WHITE BLOOD COUNT 4.4 10^3/uL (4.0-10.0)
[2022-09-04 07:18] LABS: BLOOD UREA NITROGEN 14 MG/DL (7-18); CALCIUM LEVEL 8.2 MG/DL (8.8-10.2); CARBON DIOXIDE LEVEL 27 MEQ/L (21-32); CHLORIDE LEVEL 103 MEQ/L (98-107); CREATININE FOR GFR 0.62 MG/DL (0.55-1.30); GLOMERULAR FILTRATION RATE > 60.0 (>45); GLUCOSE, FASTING 165 MG/DL (70-100); POTASSIUM SERUM 3.5 MEQ/L (3.5-5.1); SODIUM LEVEL 136 MEQ/L (136-145)
[2022-09-04] MEDS: MIRALAX *UNIT DOSE* 17GM PACKET PO SCH (07:57)
[2022-09-04] MEDS: MAGNESIUM OXIDE 400MG TAB (MAG-OX) PO SCH ×2 (08:25→21:38)
[2022-09-04] MEDS: ASPIRIN 81MG ENTERIC TABLET PO SCH (08:25)
[2022-09-04] MEDS: APIXABAN 5 MG TAB (ELIQUIS) PO SCH ×2 (08:25→21:38)
[2022-09-04] MEDS: INSULIN LISPRO (NovoLOG) PER UNIT SC SCH ×4 (08:25→21:00)
[2022-09-04 14:00] VITALS: BP 113/48
[2022-09-04 21:00] VITALS: BP 138/43; O2SAT 95
[2022-09-04] MEDS: risperiDONE 0.5 MG TAB PO SCH (21:38)
[2022-09-04] MEDS: ACETAMINOPHEN TAB 650MG DOSE (2X325MG) PO PRN (21:39)
[2022-09-05] MEDS: NYSTATIN 100,000 UNITS/GM TOPICAL PWD 15 GM TOP SCH ×3 (00:46→21:21)
[2022-09-05] MEDS: REMDESIVIR 100 MG in NS 250 ML IV SCH (04:20)
[2022-09-05 05:45] VITALS: BP 124/51
[2022-09-05 06:07] LABS: HEMATOCRIT 33.5 % (36.0-47.0); HEMOGLOBIN 10.5 g/dl (12.0-15.5); MEAN CORPUSCULAR HEMOGLOBIN 25.7 pg (27.0-33.0); MEAN CORPUSCULAR HGB CONC 31.3 g/dl (32.0-36.5); MEAN CORPUSCULAR VOLUME 82.1 fl (80.0-96.0); PLATELET COUNT, AUTOMATED 213 10^3/uL (150-450); RED BLOOD COUNT 4.08 10^6/uL (4.00-5.40); WHITE BLOOD COUNT 4.6 10^3/uL (4.0-10.0)
[2022-09-05] MEDS: SODIUM CHLORIDE 0.9% INJ 10 ML SYR IV SCH (06:08)
[2022-09-05 06:39] LABS: BLOOD UREA NITROGEN 13 MG/DL (7-18); CALCIUM LEVEL 8.3 MG/DL (8.8-10.2); CARBON DIOXIDE LEVEL 27 MEQ/L (21-32); CHLORIDE LEVEL 103 MEQ/L (98-107); CREATININE FOR GFR 0.62 MG/DL (0.55-1.30); GLOMERULAR FILTRATION RATE > 60.0 (>45); GLUCOSE, FASTING 178 MG/DL (70-100); POTASSIUM SERUM 3.4 MEQ/L (3.5-5.1); SODIUM LEVEL 136 MEQ/L (136-145)
[2022-09-05] MEDS ORDERED: POTASSIUM CHLORIDE 10% LIQ 20 MEQ/15 ML UDC PO ONE (07:15)
[2022-09-05] MEDS: MIRALAX *UNIT DOSE* 17GM PACKET PO SCH (08:20)
[2022-09-05] MEDS: INSULIN LISPRO (NovoLOG) PER UNIT SC SCH ×4 (08:31→21:00)
[2022-09-05] MEDS: APIXABAN 5 MG TAB (ELIQUIS) PO SCH ×2 (08:32→21:20)
[2022-09-05] MEDS: MAGNESIUM OXIDE 400MG TAB (MAG-OX) PO SCH ×2 (08:32→21:20)
[2022-09-05] MEDS: ASPIRIN 81MG ENTERIC TABLET PO SCH (08:32)
[2022-09-05 10:24] VITALS: O2SAT 96
[2022-09-05 15:00] VITALS: BP 116/74
[2022-09-05] MEDS: risperiDONE 0.5 MG TAB PO SCH (21:20)
[2022-09-05 21:30] VITALS: BP 130/54; O2SAT 93
[2022-09-05 22:05] VITALS: BP 134/63
[2022-09-06] MEDS: REMDESIVIR 100 MG in NS 250 ML IV SCH (03:01)
[2022-09-06 04:00] VITALS: BP 120/84
[2022-09-06] MEDS: SODIUM CHLORIDE 0.9% INJ 10 ML SYR IV SCH (04:04)
[2022-09-06 07:44] LABS: HEMATOCRIT 36.6 % (36.0-47.0); HEMOGLOBIN 11.3 g/dl (12.0-15.5); MEAN CORPUSCULAR HEMOGLOBIN 25.3 pg (27.0-33.0); MEAN CORPUSCULAR HGB CONC 30.9 g/dl (32.0-36.5); MEAN CORPUSCULAR VOLUME 82.1 fl (80.0-96.0); PLATELET COUNT, AUTOMATED 239 10^3/uL (150-450); RED BLOOD COUNT 4.46 10^6/uL (4.00-5.40); WHITE BLOOD COUNT 5.4 10^3/uL (4.0-10.0)
[2022-09-06 08:09] LABS: ALBUMIN 2.4 GM/DL (3.2-5.2); ALT/SGPT 13 U/L (12-78); BILIRUBIN,TOTAL 0.2 MG/DL (0.2-1.0); BLOOD UREA NITROGEN 9 MG/DL (7-18); CALCIUM LEVEL 8.4 MG/DL (8.8-10.2); CARBON DIOXIDE LEVEL 25 MEQ/L (21-32); CHLORIDE LEVEL 102 MEQ/L (98-107); CREATININE FOR GFR 0.57 MG/DL (0.55-1.30); GLOMERULAR FILTRATION RATE > 60.0 (>45); GLUCOSE, FASTING 214 MG/DL (70-100); MAGNESIUM LEVEL 1.6 MG/DL (1.8-2.4); PHOSPHORUS LEVEL 2.7 MG/DL (2.5-4.9); POTASSIUM SERUM 3.6 MEQ/L (3.5-5.1); SODIUM LEVEL 134 MEQ/L (136-145); TOTAL PROTEIN 5.6 GM/DL (6.4-8.2)
[2022-09-06] MEDS: MAGNESIUM OXIDE 400MG TAB (MAG-OX) PO SCH ×2 (08:53→21:10)
[2022-09-06] MEDS: ASPIRIN 81MG ENTERIC TABLET PO SCH (08:53)
[2022-09-06] MEDS: INSULIN LISPRO (NovoLOG) PER UNIT SC SCH ×4 (08:53→21:00)
[2022-09-06] MEDS: APIXABAN 5 MG TAB (ELIQUIS) PO SCH ×2 (08:53→21:09)
[2022-09-06] MEDS: MIRALAX *UNIT DOSE* 17GM PACKET PO SCH (08:54)
[2022-09-06] MEDS: NYSTATIN 100,000 UNITS/GM TOPICAL PWD 15 GM TOP SCH ×2 (08:54→22:35)
[2022-09-06] MEDS ORDERED: LOPERAMIDE 2 MG CAPLET PO PRN (11:55)
[2022-09-06 12:26] VITALS: BP 145/65
[2022-09-06] MEDS ORDERED: POTASSIUM CHLORIDE 10MEQ SR TABLET PO ONE (18:15)
[2022-09-06] MEDS ORDERED: MAG SULF 1GM/100ML (MAG RUN) 1 GM in IV 1 EA IV SCH (19:00)
[2022-09-06 20:37] VITALS: BP 146/70
[2022-09-06] MEDS: risperiDONE 0.5 MG TAB PO SCH (22:17)
[2022-09-06] MEDS: MAG SULF 1GM/100ML (MAG RUN) 1 GM in IV 1 EA IV SCH (22:35)
[2022-09-07] MEDS: MAG SULF 1GM/100ML (MAG RUN) 1 GM in IV 1 EA IV SCH (00:08)
[2022-09-07 04:54] VITALS: BP 144/88
[2022-09-07 06:08] LABS: BASO % 0.5 % (0.0-1.0); EOS # 0.2 10^3/uL (0.0-0.5); EOS % 2.9 % (0.0-3.0); HEMATOCRIT 35.6 % (36.0-47.0); HEMOGLOBIN 11.3 g/dl (12.0-15.5); LYMPH # 1.8 10^3/uL (1.5-5.0); LYMPH % 28.6 % (24.0-44.0); MEAN CORPUSCULAR HEMOGLOBIN 25.7 pg (27.0-33.0); MEAN CORPUSCULAR HGB CONC 31.7 g/dl (32.0-36.5); MEAN CORPUSCULAR VOLUME 80.9 fl (80.0-96.0); MONO # 0.5 10^3/uL (0.0-0.8); MONO % 8.2 % (2.0-8.0); NEUTROPHILS # 3.7 10^3/uL (1.5-8.5); NEUTROPHILS % 59.3 % (36.0-66.0); PLATELET COUNT, AUTOMATED 263 10^3/uL (150-450); WHITE BLOOD COUNT 6.2 10^3/uL (4.0-10.0)
[2022-09-07 06:34] LABS: BLOOD UREA NITROGEN 8 MG/DL (7-18); CALCIUM LEVEL 8.3 MG/DL (8.8-10.2); CARBON DIOXIDE LEVEL 27 MEQ/L (21-32); CHLORIDE LEVEL 104 MEQ/L (98-107); CREATININE FOR GFR 0.64 MG/DL (0.55-1.30); GLOMERULAR FILTRATION RATE > 60.0 (>45); GLUCOSE, FASTING 189 MG/DL (70-100); POTASSIUM SERUM 4.2 MEQ/L (3.5-5.1); SODIUM LEVEL 138 MEQ/L (136-145)
[2022-09-07] MEDS: MIRALAX *UNIT DOSE* 17GM PACKET PO SCH (09:00)
[2022-09-07] MEDS: ASPIRIN 81MG ENTERIC TABLET PO SCH (09:19)
[2022-09-07] MEDS: INSULIN LISPRO (NovoLOG) PER UNIT SC SCH ×4 (09:19→21:00)
[2022-09-07] MEDS: NYSTATIN 100,000 UNITS/GM TOPICAL PWD 15 GM TOP SCH ×2 (09:20→21:06)
[2022-09-07] MEDS: APIXABAN 5 MG TAB (ELIQUIS) PO SCH ×2 (09:20→21:06)
[2022-09-07] MEDS: MAGNESIUM OXIDE 400MG TAB (MAG-OX) PO SCH ×2 (09:20→21:06)
[2022-09-07 15:25] VITALS: BP 141/75
[2022-09-07 21:00] VITALS: BP 129/72
[2022-09-07] MEDS: risperiDONE 0.5 MG TAB PO SCH (21:06)
[2022-09-08 04:00] VITALS: BP 130/84
[2022-09-08 05:54] LABS: BASO % 0.5 % (0.0-1.0); EOS # 0.2 10^3/uL (0.0-0.5); EOS % 2.7 % (0.0-3.0); HEMATOCRIT 36.9 % (36.0-47.0); HEMOGLOBIN 11.7 g/dl (12.0-15.5); LYMPH # 1.7 10^3/uL (1.5-5.0); LYMPH % 26.2 % (24.0-44.0); MEAN CORPUSCULAR HEMOGLOBIN 25.8 pg (27.0-33.0); MEAN CORPUSCULAR HGB CONC 31.7 g/dl (32.0-36.5); MEAN CORPUSCULAR VOLUME 81.5 fl (80.0-96.0); MONO # 0.5 10^3/uL (0.0-0.8); MONO % 8.3 % (2.0-8.0); NEUTROPHILS # 3.9 10^3/uL (1.5-8.5); NEUTROPHILS % 61.7 % (36.0-66.0); PLATELET COUNT, AUTOMATED 273 10^3/uL (150-450); RED BLOOD COUNT 4.53 10^6/uL (4.00-5.40); WHITE BLOOD COUNT 6.3 10^3/uL (4.0-10.0)
[2022-09-08] MEDS: ASPIRIN 81MG ENTERIC TABLET PO SCH (08:41)
[2022-09-08] MEDS: MAGNESIUM OXIDE 400MG TAB (MAG-OX) PO SCH ×2 (08:41→12:45)
[2022-09-08] MEDS: APIXABAN 5 MG TAB (ELIQUIS) PO SCH ×2 (08:41→20:22)
[2022-09-08] MEDS: MIRALAX *UNIT DOSE* 17GM PACKET PO SCH (08:41)
[2022-09-08] MEDS: INSULIN LISPRO (NovoLOG) PER UNIT SC SCH ×4 (08:42→20:23)
[2022-09-08] MEDS: NYSTATIN 100,000 UNITS/GM TOPICAL PWD 15 GM TOP SCH ×2 (08:48→20:23)
[2022-09-08 10:11] LABS: BLOOD UREA NITROGEN 7 MG/DL (7-18); CALCIUM LEVEL 8.9 MG/DL (8.8-10.2); CARBON DIOXIDE LEVEL 28 MEQ/L (21-32); CHLORIDE LEVEL 101 MEQ/L (98-107); GLOMERULAR FILTRATION RATE > 60.0 (>45); GLUCOSE, FASTING 202 MG/DL (70-100); MAGNESIUM LEVEL 1.8 MG/DL (1.8-2.4); POTASSIUM SERUM 4.2 MEQ/L (3.5-5.1); SODIUM LEVEL 136 MEQ/L (136-145)
[2022-09-08 14:00] VITALS: BP 167/72
[2022-09-08] MEDS: METAMUCIL (PSYLLIUM) PACKET PO SCH ×2 (14:26→20:23)
[2022-09-08] MEDS: risperiDONE 0.5 MG TAB PO SCH (20:22)
[2022-09-09 06:28] VITALS: BP 143/63
[2022-09-09] MEDS: APIXABAN 5 MG TAB (ELIQUIS) PO SCH ×2 (08:11→20:57)
[2022-09-09] MEDS: ASPIRIN 81MG ENTERIC TABLET PO SCH (08:11)
[2022-09-09] MEDS: METAMUCIL (PSYLLIUM) PACKET PO SCH ×2 (08:11→20:58)
[2022-09-09] MEDS: ACETAMINOPHEN TAB 650MG DOSE (2X325MG) PO PRN (08:12)
[2022-09-09] MEDS: MAGNESIUM OXIDE 400MG TAB (MAG-OX) PO SCH (08:12)
[2022-09-09] MEDS: INSULIN LISPRO (NovoLOG) PER UNIT SC SCH ×4 (08:14→20:33)
[2022-09-09] MEDS: MIRALAX *UNIT DOSE* 17GM PACKET PO SCH (08:14)
[2022-09-09] MEDS: NYSTATIN 100,000 UNITS/GM TOPICAL PWD 15 GM TOP SCH ×2 (08:15→20:58)
[2022-09-09] MEDS: risperiDONE 0.5 MG TAB PO SCH (20:57)
[2022-09-10 04:00] VITALS: BP 136/67
[2022-09-10] MEDS: APIXABAN 5 MG TAB (ELIQUIS) PO SCH ×2 (08:20→21:13)
[2022-09-10] MEDS: METAMUCIL (PSYLLIUM) PACKET PO SCH ×2 (08:21→21:12)
[2022-09-10] MEDS: INSULIN LISPRO (NovoLOG) PER UNIT SC SCH ×4 (08:21→21:00)
[2022-09-10] MEDS: MAGNESIUM OXIDE 400MG TAB (MAG-OX) PO SCH (08:21)
[2022-09-10] MEDS: MIRALAX *UNIT DOSE* 17GM PACKET PO SCH (08:21)
[2022-09-10] MEDS: NYSTATIN 100,000 UNITS/GM TOPICAL PWD 15 GM TOP SCH ×2 (08:21→21:13)
[2022-09-10] MEDS: ASPIRIN 81MG ENTERIC TABLET PO SCH (08:21)
[2022-09-10] MEDS: risperiDONE 0.5 MG TAB PO SCH (21:13)
[2022-09-11 04:00] VITALS: BP 150/67
[2022-09-11 07:16] LABS: BLOOD UREA NITROGEN 10 MG/DL (7-18); CALCIUM LEVEL 8.9 MG/DL (8.8-10.2); CARBON DIOXIDE LEVEL 26 MEQ/L (21-32); CHLORIDE LEVEL 102 MEQ/L (98-107); CREATININE FOR GFR 0.72 MG/DL (0.55-1.30); GLOMERULAR FILTRATION RATE > 60.0 (>45); GLUCOSE, FASTING 208 MG/DL (70-100); POTASSIUM SERUM 4.3 MEQ/L (3.5-5.1); SODIUM LEVEL 133 MEQ/L (136-145)
[2022-09-11] MEDS: APIXABAN 5 MG TAB (ELIQUIS) PO SCH ×2 (08:40→21:59)
[2022-09-11] MEDS: MAGNESIUM OXIDE 400MG TAB (MAG-OX) PO SCH (08:40)
[2022-09-11] MEDS: METAMUCIL (PSYLLIUM) PACKET PO SCH ×2 (08:40→21:59)
[2022-09-11] MEDS: ASPIRIN 81MG ENTERIC TABLET PO SCH (08:40)
[2022-09-11] MEDS: INSULIN LISPRO (NovoLOG) PER UNIT SC SCH ×4 (08:41→21:00)
[2022-09-11] MEDS: NYSTATIN 100,000 UNITS/GM TOPICAL PWD 15 GM TOP SCH ×2 (08:51→22:00)
[2022-09-11] MEDS: MIRALAX *UNIT DOSE* 17GM PACKET PO SCH (08:51)
[2022-09-11] MEDS: amLODIPine 5 MG TAB PO SCH (14:43)
[2022-09-11 19:52] VITALS: BP 118/65
[2022-09-11] MEDS: risperiDONE 0.5 MG TAB PO SCH (21:59)
[2022-09-12 04:00] VITALS: BP 159/71
[2022-09-12] MEDS: APIXABAN 5 MG TAB (ELIQUIS) PO SCH ×2 (09:36→21:30)
[2022-09-12] MEDS: amLODIPine 5 MG TAB PO SCH (09:36)
[2022-09-12] MEDS: INSULIN LISPRO (NovoLOG) PER UNIT SC SCH ×4 (09:36→21:00)
[2022-09-12] MEDS: ASPIRIN 81MG ENTERIC TABLET PO SCH (09:38)
[2022-09-12] MEDS: NYSTATIN 100,000 UNITS/GM TOPICAL PWD 15 GM TOP SCH ×2 (09:40→21:30)
[2022-09-12] MEDS: METAMUCIL (PSYLLIUM) PACKET PO SCH ×2 (09:40→21:30)
[2022-09-12] MEDS: MIRALAX *UNIT DOSE* 17GM PACKET PO SCH (09:40)
[2022-09-12 19:30] VITALS: BP 129/58
[2022-09-12] MEDS: risperiDONE 0.5 MG TAB PO SCH (21:30)
[2022-09-13 06:09] VITALS: BP 141/63
[2022-09-13] MEDS: MIRALAX *UNIT DOSE* 17GM PACKET PO SCH (07:55)
[2022-09-13] MEDS: amLODIPine 5 MG TAB PO SCH (08:57)
[2022-09-13] MEDS: ASPIRIN 81MG ENTERIC TABLET PO SCH (08:57)
[2022-09-13] MEDS: INSULIN LISPRO (NovoLOG) PER UNIT SC SCH ×4 (08:57→20:53)
[2022-09-13] MEDS: APIXABAN 5 MG TAB (ELIQUIS) PO SCH ×2 (08:57→20:52)
[2022-09-13] MEDS: NYSTATIN 100,000 UNITS/GM TOPICAL PWD 15 GM TOP SCH ×2 (08:58→22:49)
[2022-09-13] MEDS: METAMUCIL (PSYLLIUM) PACKET PO SCH (08:58)
[2022-09-13 17:22] VITALS: BP 127/56
[2022-09-13 18:18] LABS: BASO % 0.6 % (0.0-1.0); EOS # 0.1 10^3/uL (0.0-0.5); HEMATOCRIT 36.8 % (36.0-47.0); HEMOGLOBIN 11.6 g/dl (12.0-15.5); LYMPH # 1.7 10^3/uL (1.5-5.0); LYMPH % 22.8 % (24.0-44.0); MEAN CORPUSCULAR HEMOGLOBIN 25.4 pg (27.0-33.0); MEAN CORPUSCULAR HGB CONC 31.5 g/dl (32.0-36.5); MEAN CORPUSCULAR VOLUME 80.5 fl (80.0-96.0); MONO # 0.7 10^3/uL (0.0-0.8); MONO % 9.2 % (2.0-8.0); NEUTROPHILS # 4.8 10^3/uL (1.5-8.5); PLATELET COUNT, AUTOMATED 338 10^3/uL (150-450); RED BLOOD COUNT 4.57 10^6/uL (4.00-5.40); WHITE BLOOD COUNT 7.3 10^3/uL (4.0-10.0)
[2022-09-13 18:53] LABS: ALBUMIN 2.8 GM/DL (3.2-5.2); ALT/SGPT 13 U/L (12-78); BILIRUBIN,TOTAL 0.6 MG/DL (0.2-1.0); BLOOD UREA NITROGEN 15 MG/DL (7-18); CALCIUM LEVEL 8.8 MG/DL (8.8-10.2); CARBON DIOXIDE LEVEL 24 MEQ/L (21-32); CHLORIDE LEVEL 102 MEQ/L (98-107); CREATININE FOR GFR 0.71 MG/DL (0.55-1.30); GLOMERULAR FILTRATION RATE > 60.0 (>45); GLUCOSE, FASTING 196 MG/DL (70-100); POTASSIUM SERUM 3.9 MEQ/L (3.5-5.1); SODIUM LEVEL 136 MEQ/L (136-145); TOTAL PROTEIN 6.1 GM/DL (6.4-8.2)
[2022-09-13 19:47] VITALS: BP 121/55
[2022-09-13] MEDS: risperiDONE 0.5 MG TAB PO SCH (20:52)
[2022-09-14 05:42] VITALS: BP 121/58
[2022-09-14] MEDS: INSULIN LISPRO (NovoLOG) PER UNIT SC SCH ×4 (08:35→20:49)
[2022-09-14] MEDS: ASPIRIN 81MG ENTERIC TABLET PO SCH (08:35)
[2022-09-14] MEDS: APIXABAN 5 MG TAB (ELIQUIS) PO SCH ×2 (08:35→20:53)
[2022-09-14] MEDS: NYSTATIN 100,000 UNITS/GM TOPICAL PWD 15 GM TOP SCH ×2 (08:36→20:55)
[2022-09-14] MEDS: amLODIPine 5 MG TAB PO SCH (08:36)
[2022-09-14] MEDS: risperiDONE 0.5 MG TAB PO SCH (20:53)
[2022-09-15] MEDS: INSULIN LISPRO (NovoLOG) PER UNIT SC SCH (08:16)
[2022-09-15] MEDS: ASPIRIN 81MG ENTERIC TABLET PO SCH (08:16)
[2022-09-15 08:17] VITALS: BP 112/57
[2022-09-15] MEDS: APIXABAN 5 MG TAB (ELIQUIS) PO SCH (08:17)
[2022-09-15] MEDS: amLODIPine 5 MG TAB PO SCH (08:17)
[2022-09-15] MEDS: NYSTATIN 100,000 UNITS/GM TOPICAL PWD 15 GM TOP SCH (08:17)
== END 2022-09-15 12:39 | DRG 388 ==
LOC: M ED 00:34 → M ED INP 04:17 → UNDOADMIN 04:17 → ENRESERV 06:52 → M ED INP 08:30 → M 4MAIN 08:30 → UNDODISIN 09-02 11:15 → M 4MAIN 09-02 11:15 → M MSPAV 09-02 17:21 → M 4MAIN 09-05 22:02
PROVIDERS: ADMIT Internal Medicine; ATTEND Internal Medicine
PROC: XW033E5 Introduction of Remdesivir Anti-infective into Peripheral Vein, Percutaneous Approach, New Technology Group 5 (ICD-10-PCS; principal; 2022-09-02)
PROC: 3E0333Z Introduction of Anti-inflammatory into Peripheral Vein, Percutaneous Approach (ICD-10-PCS; 2022-09-02)
DX: K56.7 Ileus, unspecified (principal); U07.1 COVID-19; E87.1 Hypo-osmolality and hyponatremia; G10 Huntington's disease; E11.51 Type 2 diabetes mellitus with diabetic peripheral angiopathy without gangrene; E78.5 Hyperlipidemia, unspecified; L89.611 Pressure ulcer of right heel, stage 1; I10 Essential (primary) hypertension; G47.33 Obstructive sleep apnea (adult) (pediatric); L89.621 Pressure ulcer of left heel, stage 1; L89.152 Pressure ulcer of sacral region, stage 2; Z79.4 Long term (current) use of insulin; Z79.82 Long term (current) use of aspirin; Z79.899 Other long term (current) drug therapy; Z88.8 Allergy status to other drugs, medicaments and biological substances; Z86.718 Personal history of other venous thrombosis and embolism; Z79.01 Long term (current) use of anticoagulants; Z98.62 Peripheral vascular angioplasty status; Z82.0 Family history of epilepsy and other diseases of the nervous system; Z74.1 Need for assistance with personal care; Z89.422 Acquired absence of other left toe(s)

== ENCOUNTER 2022-09-02 11:04 | Outpatient (CLI) | payer MEDICARE, MEDICAID ==
[~2022-09-02 11:04] MED LIST changes: +INSUHUMDS SQ; +PATIENT COMMENT
[2022-09-02] MEDS ORDERED: NS 1,000 ML IV SCH (11:45)
[2022-09-02] MEDS ORDERED: methylPREDNISolone 125MG 2ML VIAL IV PRN (11:45)
[2022-09-02] MEDS ORDERED: ALBUTEROL SULFATE 2.5 MG/0.5 ML INH NEB SOLN INH PRN (11:45)
[2022-09-02] MEDS ORDERED: ALBUTEROL 90 MCG/ACT 8GM HFA INHALER INH PRN (11:45)
[2022-09-02] MEDS ORDERED: EPINEPHrine INJ 1 MG/ML 1ML AMP IM PRN (11:45)
[2022-09-02] MEDS ORDERED: diphenhydrAMINE 50MG/ML VIAL IV PRN (11:45)
[2022-09-02] MEDS ORDERED: BEBTELOVIMAB 175MG 2ML VIAL (EUA) IV ONE (14:00)
== END 2022-09-02 12:00 ==
LOC: M OPCLI4PV 11:04 → M 4MAIN 11:24 → M OPCLI4PV 12:00
PROVIDERS: ATTEND Internal Medicine
DX: U07.1 COVID-19 (principal)

== ENCOUNTER 2022-10-26 10:01 | Inpatient (IN) | payer MEDICARE, MEDICAID ==
[~2022-10-26] VITALS: Ht 170.2 cm; Wt 113.5 kg
[2022-10-26] MEDS ORDERED: NS 1,000 ML IV SCH (10:15)
[2022-10-26] MEDS ORDERED: NS 500 ML IV ONE (10:25)
[2022-10-26] MEDS ORDERED: GLUC1LIQ18 PO (10:36)
[2022-10-26] MEDS ORDERED: ARIC1TAB PO (10:36)
[2022-10-26] MEDS ORDERED: LANTINJ4 SC (10:36)
[2022-10-26 10:39] LABS: BASO % 0.4 % (0.0-1.0); EOS # 0.1 10^3/uL (0.0-0.5); EOS % 1.1 % (0.0-3.0); HEMATOCRIT 40.1 % (36.0-47.0); HEMOGLOBIN 12.7 g/dl (12.0-15.5); LYMPH # 1.3 10^3/uL (1.5-5.0); MEAN CORPUSCULAR HGB CONC 31.7 g/dl (32.0-36.5); MONO # 0.6 10^3/uL (0.0-0.8); MONO % 8.6 % (2.0-8.0); NEUTROPHILS % 71.5 % (36.0-66.0); PLATELET COUNT, AUTOMATED 325 10^3/uL (150-450); RED BLOOD COUNT 4.89 10^6/uL (4.00-5.40)
[2022-10-26 10:56] LABS: INR 1.02; PROTHROMBIN TIME 13.6 SECONDS (12.5-14.5)
[2022-10-26] MEDS ORDERED: ISOVUE-370 76% 100ML VIAL As Ordered ONE (11:00)
[2022-10-26] MEDS ORDERED: HOME MED LIST COMPLETE! XX SCH (11:00)
[2022-10-26 11:19] LABS: RSV AMPLIFICATION NEGATIVE (NEGATIVE)
[2022-10-26 11:19] LABS: ALBUMIN 3.2 G/DL (3.2-5.2); BILIRUBIN,DIRECT 0.3 MG/DL (<0.4); BILIRUBIN,TOTAL 0.7 MG/DL (0.3-1.2); TOTAL PROTEIN 6.8 G/DL (5.7-8.2)
[2022-10-26 14:20] VITALS: BP 130/66
[2022-10-26] MEDS ORDERED: DEXTROSE 50% 50ML SYRINGE IV PRN (15:05)
[2022-10-26] MEDS ORDERED: GLUCOSE 4GM CHEW TABLET PO PRN (15:05)
[2022-10-26] MEDS ORDERED: GLUCAGON INJ 1MG VIAL SC PRN (15:05)
[2022-10-26] MEDS ORDERED: SIMETHICONE 80MG CHEW TAB PO PRN (15:15)
[2022-10-26] MEDS ORDERED: BISACODYL 10MG SUPP PR PRN (15:15)
[2022-10-26] MEDS: NS 1,000 ML IV SCH ×2 (17:43→20:28)
[2022-10-26] MEDS: ONDANSETRON 4MG 2ML VIAL IV SCH ×2 (17:56→20:21)
[2022-10-26] MEDS: INSULIN LISPRO (NovoLOG) PER UNIT SC SCH (17:57)
[2022-10-26 20:00] VITALS: BP 126/64
[2022-10-26] MEDS: DONEPEZIL 5 MG TAB PO SCH (20:27)
[2022-10-26] MEDS: risperiDONE 0.5 MG TAB PO SCH (20:27)
[2022-10-26] MEDS: MAGNESIUM OXIDE 400MG TAB (MAG-OX) PO SCH (20:27)
[2022-10-26] MEDS ORDERED: FLEET OIL RETENTION ENEMA PR ONE (21:50)
[2022-10-27] MEDS: INSULIN LISPRO (NovoLOG) PER UNIT SC SCH ×4 (00:55→18:11)
[2022-10-27] MEDS: ONDANSETRON 4MG 2ML VIAL IV SCH ×6 (00:55→22:06)
[2022-10-27] MEDS: NS 1,000 ML IV SCH ×3 (01:38→21:50)
[2022-10-27 06:00] VITALS: BP 123/50
[2022-10-27 07:19] LABS: MEAN CORPUSCULAR HEMOGLOBIN 26.6 pg (27.0-33.0); MEAN CORPUSCULAR HGB CONC 32.4 g/dl (32.0-36.5); MEAN CORPUSCULAR VOLUME 81.9 fl (80.0-96.0); PLATELET COUNT, AUTOMATED 306 10^3/uL (150-450); RED BLOOD COUNT 4.03 10^6/uL (4.00-5.40); WHITE BLOOD COUNT 8.4 10^3/uL (4.0-10.0)
[2022-10-27 07:29] LABS: HEMOGLOBIN 10.7 g/dl (12.0-15.5)
[2022-10-27 07:43] LABS: ALBUMIN 2.6 G/DL (3.2-5.2); ALKALINE PHOSPHATASE 80 U/L (46-116); ALT/SGPT < 9 U/L (7.0-40); AST/SGOT 9 U/L (<34); BILIRUBIN,TOTAL 0.9 MG/DL (0.3-1.2); BLOOD UREA NITROGEN 11 MG/DL (9-23); CALCIUM LEVEL 8.8 MG/DL (8.3-10.6); CARBON DIOXIDE LEVEL 26 MMOL/L (20-31); CHLORIDE LEVEL 102 MMOL/L (98-107); CREATININE FOR GFR 0.66 MG/DL (0.55-1.30); GLOMERULAR FILTRATION RATE > 60.0 (>45); GLUCOSE, FASTING 123 MG/DL (74-106); POTASSIUM SERUM 3.7 MMOL/L (3.5-5.1); SODIUM LEVEL 135 MMOL/L (136-145); TOTAL PROTEIN 5.6 G/DL (5.7-8.2)
[2022-10-27] MEDS ORDERED: ASPIRIN 81MG ENTERIC TABLET PO SCH (09:00)
[2022-10-27] MEDS ORDERED: ENOXAPARIN 40MG/0.4ML SYRINGE (J1650 PER 10MG) SC SCH (09:00)
[2022-10-27] MEDS ORDERED: APIXABAN 5 MG TAB (ELIQUIS) PO SCH (09:00)
[2022-10-27] MEDS: MAGNESIUM OXIDE 400MG TAB (MAG-OX) PO SCH ×2 (10:08→22:06)
[2022-10-27 14:00] VITALS: BP 123/49
[2022-10-27 21:30] VITALS: BP 128/49
[2022-10-27] MEDS: DONEPEZIL 5 MG TAB PO SCH (22:06)
[2022-10-27] MEDS: risperiDONE 0.5 MG TAB PO SCH (22:07)
[2022-10-28] MEDS: INSULIN LISPRO (NovoLOG) PER UNIT SC SCH ×4 (00:39→18:27)
[2022-10-28] MEDS: ONDANSETRON 4MG 2ML VIAL IV SCH ×6 (00:39→21:08)
[2022-10-28] MEDS: NS 1,000 ML IV SCH ×3 (04:36→21:50)
[2022-10-28 05:51] VITALS: BP 127/57
[2022-10-28 05:52] LABS: HEMATOCRIT 33.7 % (36.0-47.0); HEMOGLOBIN 10.6 g/dl (12.0-15.5); MEAN CORPUSCULAR HGB CONC 31.5 g/dl (32.0-36.5); MEAN CORPUSCULAR VOLUME 82.6 fl (80.0-96.0); PLATELET COUNT, AUTOMATED 247 10^3/uL (150-450); RED BLOOD COUNT 4.08 10^6/uL (4.00-5.40); WHITE BLOOD COUNT 4.8 10^3/uL (4.0-10.0)
[2022-10-28 06:17] LABS: ALBUMIN 2.7 G/DL (3.2-5.2); ALKALINE PHOSPHATASE 76 U/L (46-116); ALT/SGPT < 9 U/L (7.0-40); AST/SGOT 14 U/L (<34); BILIRUBIN,TOTAL 0.7 MG/DL (0.3-1.2); BLOOD UREA NITROGEN 7 MG/DL (9-23); CALCIUM LEVEL 8.5 MG/DL (8.3-10.6); CARBON DIOXIDE LEVEL 20 MMOL/L (20-31); CHLORIDE LEVEL 105 MMOL/L (98-107); CREATININE FOR GFR 0.66 MG/DL (0.55-1.30); GLOMERULAR FILTRATION RATE > 60.0 (>45); GLUCOSE, FASTING 125 MG/DL (74-106); POTASSIUM SERUM 3.6 MMOL/L (3.5-5.1); SODIUM LEVEL 137 MMOL/L (136-145); TOTAL PROTEIN 5.7 G/DL (5.7-8.2)
[2022-10-28] MEDS ORDERED: FLEET OIL RETENTION ENEMA PR SCH (09:00)
[2022-10-28] MEDS: SIMETHICONE 80MG CHEW TAB PO SCH ×4 (09:50→21:10)
[2022-10-28] MEDS: MAGNESIUM OXIDE 400MG TAB (MAG-OX) PO SCH ×2 (09:50→21:10)
[2022-10-28 14:00] VITALS: BP 132/62
[2022-10-28 20:00] VITALS: BP 120/60
[2022-10-28] MEDS: DONEPEZIL 5 MG TAB PO SCH (21:08)
[2022-10-28] MEDS: risperiDONE 0.5 MG TAB PO SCH (21:09)
[2022-10-28] MEDS: NYSTATIN 100,000 UNITS/GM TOPICAL PWD 15GM TOP SCH (21:10)
[2022-10-29] MEDS: ONDANSETRON 4MG 2ML VIAL IV SCH (00:08)
[2022-10-29] MEDS: INSULIN LISPRO (NovoLOG) PER UNIT SC SCH ×4 (00:08→18:59)
[2022-10-29] MEDS: NS 1,000 ML IV SCH ×3 (00:11→13:47)
[2022-10-29] MEDS ORDERED: ONDANSETRON 4MG 2ML VIAL IV PRN (04:10)
[2022-10-29 06:00] VITALS: BP 130/64
[2022-10-29 06:17] LABS: HEMATOCRIT 32.4 % (36.0-47.0); HEMOGLOBIN 10.5 g/dl (12.0-15.5); MEAN CORPUSCULAR HEMOGLOBIN 26.4 pg (27.0-33.0); MEAN CORPUSCULAR HGB CONC 32.4 g/dl (32.0-36.5); MEAN CORPUSCULAR VOLUME 81.6 fl (80.0-96.0); PLATELET COUNT, AUTOMATED 273 10^3/uL (150-450); RED BLOOD COUNT 3.97 10^6/uL (4.00-5.40); WHITE BLOOD COUNT 6.4 10^3/uL (4.0-10.0)
[2022-10-29 06:39] LABS: ALBUMIN 2.5 G/DL (3.2-5.2); ALKALINE PHOSPHATASE 72 U/L (46-116); ALT/SGPT < 9 U/L (7.0-40); AST/SGOT 13 U/L (<34); BILIRUBIN,TOTAL 0.5 MG/DL (0.3-1.2); BLOOD UREA NITROGEN 5 MG/DL (9-23); CALCIUM LEVEL 8.2 MG/DL (8.3-10.6); CARBON DIOXIDE LEVEL 19 MMOL/L (20-31); CHLORIDE LEVEL 107 MMOL/L (98-107); CREATININE FOR GFR 0.63 MG/DL (0.55-1.30); GLOMERULAR FILTRATION RATE > 60.0 (>45); GLUCOSE, FASTING 109 MG/DL (74-106); POTASSIUM SERUM 3.6 MMOL/L (3.5-5.1); SODIUM LEVEL 138 MMOL/L (136-145); TOTAL PROTEIN 5.3 G/DL (5.7-8.2)
[2022-10-29] MEDS: SIMETHICONE 80MG CHEW TAB PO SCH ×4 (09:52→21:32)
[2022-10-29] MEDS: MAGNESIUM OXIDE 400MG TAB (MAG-OX) PO SCH ×2 (09:53→21:34)
[2022-10-29] MEDS: NYSTATIN 100,000 UNITS/GM TOPICAL PWD 15GM TOP SCH ×2 (09:54→21:38)
[2022-10-29 14:00] VITALS: BP_SYST 128; BP_SYST 153; BP_DIAS 49; BP_DIAS 55
[2022-10-29 20:04] VITALS: BP 141/54
[2022-10-29] MEDS: risperiDONE 0.5 MG TAB PO SCH (21:31)
[2022-10-29] MEDS: DONEPEZIL 5 MG TAB PO SCH (21:31)
[2022-10-30] MEDS: NS 1,000 ML IV SCH ×3 (01:08→20:10)
[2022-10-30 06:00] VITALS: BP 134/60
[2022-10-30] MEDS: INSULIN LISPRO (NovoLOG) PER UNIT SC SCH ×4 (06:00→18:30)
[2022-10-30] MEDS: MAGNESIUM OXIDE 400MG TAB (MAG-OX) PO SCH ×2 (08:32→20:09)
[2022-10-30] MEDS: SIMETHICONE 80MG CHEW TAB PO SCH ×4 (08:32→20:09)
[2022-10-30] MEDS: NYSTATIN 100,000 UNITS/GM TOPICAL PWD 15GM TOP SCH ×2 (08:33→20:11)
[2022-10-30 09:35] LABS: HEMATOCRIT 35.1 % (36.0-47.0); MEAN CORPUSCULAR HEMOGLOBIN 25.8 pg (27.0-33.0); MEAN CORPUSCULAR HGB CONC 31.3 g/dl (32.0-36.5); MEAN CORPUSCULAR VOLUME 82.2 fl (80.0-96.0); PLATELET COUNT, AUTOMATED 269 10^3/uL (150-450); RED BLOOD COUNT 4.27 10^6/uL (4.00-5.40); WHITE BLOOD COUNT 5.1 10^3/uL (4.0-10.0)
[2022-10-30 10:06] LABS: ALBUMIN 2.9 G/DL (3.2-5.2); ALKALINE PHOSPHATASE 83 U/L (46-116); ALT/SGPT < 9 U/L (7.0-40); AST/SGOT 12 U/L (<34); BILIRUBIN,TOTAL 0.6 MG/DL (0.3-1.2); BLOOD UREA NITROGEN < 5 MG/DL (9-23); CALCIUM LEVEL 8.5 MG/DL (8.3-10.6); CARBON DIOXIDE LEVEL 22 MMOL/L (20-31); CHLORIDE LEVEL 105 MMOL/L (98-107); CREATININE FOR GFR 0.59 MG/DL (0.55-1.30); GLOMERULAR FILTRATION RATE > 60.0 (>45); GLUCOSE, FASTING 157 MG/DL (74-106); POTASSIUM SERUM 3.4 MMOL/L (3.5-5.1); SODIUM LEVEL 137 MMOL/L (136-145); TOTAL PROTEIN 5.8 G/DL (5.7-8.2)
[2022-10-30 14:00] VITALS: BP 168/66
[2022-10-30] MEDS: DONEPEZIL 5 MG TAB PO SCH (20:09)
[2022-10-30] MEDS: risperiDONE 0.5 MG TAB PO SCH (20:10)
[2022-10-30 21:36] VITALS: BP 161/50
[2022-10-31] VITALS (15 sets, daily range): BP systolic 127–174; BP diastolic 53–93
[2022-10-31 06:11] LABS: HEMOGLOBIN 10.7 g/dl (12.0-15.5); MEAN CORPUSCULAR HEMOGLOBIN 26.5 pg (27.0-33.0); MEAN CORPUSCULAR HGB CONC 32.4 g/dl (32.0-36.5); MEAN CORPUSCULAR VOLUME 81.7 fl (80.0-96.0); PLATELET COUNT, AUTOMATED 272 10^3/uL (150-450); RED BLOOD COUNT 4.04 10^6/uL (4.00-5.40); WHITE BLOOD COUNT 5.5 10^3/uL (4.0-10.0)
[2022-10-31] MEDS: NS 1,000 ML IV SCH ×2 (06:20→18:28)
[2022-10-31] MEDS: INSULIN LISPRO (NovoLOG) PER UNIT SC SCH ×4 (06:21→18:27)
[2022-10-31 06:51] LABS: ALBUMIN 2.5 G/DL (3.2-5.2); ALKALINE PHOSPHATASE 74 U/L (46-116); ALT/SGPT < 9 U/L (7.0-40); AST/SGOT 14 U/L (<34); BILIRUBIN,TOTAL 0.5 MG/DL (0.3-1.2); BLOOD UREA NITROGEN < 5 MG/DL (9-23); CALCIUM LEVEL 8.2 MG/DL (8.3-10.6); CARBON DIOXIDE LEVEL 26 MMOL/L (20-31); CHLORIDE LEVEL 105 MMOL/L (98-107); CREATININE FOR GFR 0.57 MG/DL (0.55-1.30); GLOMERULAR FILTRATION RATE > 60.0 (>45); GLUCOSE, FASTING 129 MG/DL (74-106); POTASSIUM SERUM 3.3 MMOL/L (3.5-5.1); SODIUM LEVEL 138 MMOL/L (136-145); TOTAL PROTEIN 5.3 G/DL (5.7-8.2)
[2022-10-31] MEDS ORDERED: POTASSIUM CHLORIDE 10MEQ SR TABLET PO ONE (08:00)
[2022-10-31] MEDS: ENOXAPARIN 40MG/0.4ML SYRINGE (J1650 PER 10MG) SC SCH (09:38)
[2022-10-31] MEDS: SIMETHICONE 80MG CHEW TAB PO SCH ×4 (09:39→20:30)
[2022-10-31] MEDS: MAGNESIUM OXIDE 400MG TAB (MAG-OX) PO SCH ×2 (09:39→20:29)
[2022-10-31] MEDS ORDERED: ATROPINE SULF 1MG/10ML SYRINGE IV PRN (09:40)
[2022-10-31] MEDS: NYSTATIN 100,000 UNITS/GM TOPICAL PWD 15GM TOP SCH ×2 (09:40→20:32)
[2022-10-31] MEDS ORDERED: NEOSTIGMINE METHYLSULFATE INJ 2 MG in NS 50 ML IV ONE (11:00)
[2022-10-31] MEDS: risperiDONE 0.5 MG TAB PO SCH (20:28)
[2022-10-31] MEDS: DONEPEZIL 5 MG TAB PO SCH (20:30)
[2022-11-01] MEDS: NS 1,000 ML IV SCH (00:09)
[2022-11-01] MEDS: INSULIN LISPRO (NovoLOG) PER UNIT SC SCH ×5 (00:09→21:00)
[2022-11-01 03:58] VITALS: BP 154/63
[2022-11-01 06:20] LABS: HEMATOCRIT 34.1 % (36.0-47.0); HEMOGLOBIN 10.7 g/dl (12.0-15.5); MEAN CORPUSCULAR HEMOGLOBIN 25.9 pg (27.0-33.0); MEAN CORPUSCULAR HGB CONC 31.4 g/dl (32.0-36.5); MEAN CORPUSCULAR VOLUME 82.6 fl (80.0-96.0); PLATELET COUNT, AUTOMATED 247 10^3/uL (150-450); RED BLOOD COUNT 4.13 10^6/uL (4.00-5.40); WHITE BLOOD COUNT 6.2 10^3/uL (4.0-10.0)
[2022-11-01 06:24] LABS: ALBUMIN 2.5 G/DL (3.2-5.2); ALKALINE PHOSPHATASE 76 U/L (46-116); ALT/SGPT < 9 U/L (7.0-40); AST/SGOT 13 U/L (<34); BILIRUBIN,TOTAL 0.5 MG/DL (0.3-1.2); BLOOD UREA NITROGEN < 5 MG/DL (9-23); CARBON DIOXIDE LEVEL 24 MMOL/L (20-31); CHLORIDE LEVEL 103 MMOL/L (98-107); CREATININE FOR GFR 0.55 MG/DL (0.55-1.30); GLOMERULAR FILTRATION RATE > 60.0 (>45); GLUCOSE, FASTING 114 MG/DL (74-106); POTASSIUM SERUM 3.3 MMOL/L (3.5-5.1); SODIUM LEVEL 138 MMOL/L (136-145); TOTAL PROTEIN 5.2 G/DL (5.7-8.2)
[2022-11-01 08:00] VITALS: BP 159/66
[2022-11-01] MEDS ORDERED: KCL 10MEQ/100ML SWI (KRUN) 10 MEQ in IV 1 EA IV SCH (08:00)
[2022-11-01] MEDS ORDERED: POTASSIUM CHLORIDE 10MEQ SR TABLET PO ONE (08:45)
[2022-11-01] MEDS: MAGNESIUM OXIDE 400MG TAB (MAG-OX) PO SCH ×2 (09:46→23:51)
[2022-11-01] MEDS: SIMETHICONE 80MG CHEW TAB PO SCH ×4 (09:46→23:50)
[2022-11-01] MEDS: NYSTATIN 100,000 UNITS/GM TOPICAL PWD 15GM TOP SCH ×2 (09:47→21:00)
[2022-11-01] MEDS: ENOXAPARIN 40MG/0.4ML SYRINGE (J1650 PER 10MG) SC SCH (09:47)
[2022-11-01 16:00] VITALS: BP 141/62
[2022-11-01 21:53] VITALS: BP 136/77
[2022-11-01 22:00] VITALS: BP 147/68
[2022-11-01] MEDS ORDERED: PILL CUTTER 1 EACH XX PRN (22:40)
[2022-11-01] MEDS: risperiDONE 0.5 MG TAB PO SCH (23:50)
[2022-11-01] MEDS: DONEPEZIL 5 MG TAB PO SCH (23:50)
[2022-11-02 06:15] VITALS: BP 135/60
[2022-11-02 06:21] LABS: HEMATOCRIT 34.2 % (36.0-47.0); HEMOGLOBIN 10.8 g/dl (12.0-15.5); MEAN CORPUSCULAR HEMOGLOBIN 26.2 pg (27.0-33.0); MEAN CORPUSCULAR HGB CONC 31.6 g/dl (32.0-36.5); PLATELET COUNT, AUTOMATED 270 10^3/uL (150-450); RED BLOOD COUNT 4.12 10^6/uL (4.00-5.40); WHITE BLOOD COUNT 7.1 10^3/uL (4.0-10.0)
[2022-11-02 07:42] LABS: ALBUMIN 2.4 G/DL (3.2-5.2); ALKALINE PHOSPHATASE 75 U/L (46-116); ALT/SGPT < 9 U/L (7.0-40); AST/SGOT 9 U/L (<34); BILIRUBIN,TOTAL 0.5 MG/DL (0.3-1.2); BLOOD UREA NITROGEN < 5 MG/DL (9-23); CALCIUM LEVEL 8.8 MG/DL (8.3-10.6); CARBON DIOXIDE LEVEL 27 MMOL/L (20-31); CHLORIDE LEVEL 101 MMOL/L (98-107); GLOMERULAR FILTRATION RATE > 60.0 (>45); GLUCOSE, FASTING 153 MG/DL (74-106); MAGNESIUM LEVEL 1.4 MG/DL (1.8-2.4); POTASSIUM SERUM 3.5 MMOL/L (3.5-5.1); SODIUM LEVEL 135 MMOL/L (136-145); TOTAL PROTEIN 5.2 G/DL (5.7-8.2)
[2022-11-02] MEDS: ENOXAPARIN 40MG/0.4ML SYRINGE (J1650 PER 10MG) SC SCH (09:20)
[2022-11-02] MEDS: SIMETHICONE 80MG CHEW TAB PO SCH ×4 (09:21→21:31)
[2022-11-02] MEDS: MAGNESIUM OXIDE 400MG TAB (MAG-OX) PO SCH ×2 (09:22→21:31)
[2022-11-02] MEDS: INSULIN LISPRO (NovoLOG) PER UNIT SC SCH ×4 (09:22→21:00)
[2022-11-02] MEDS: NYSTATIN 100,000 UNITS/GM TOPICAL PWD 15GM TOP SCH ×2 (09:23→21:32)
[2022-11-02 14:00] VITALS: BP_SYST 142; BP_SYST 92; BP_DIAS 44; BP_DIAS 68
[2022-11-02 16:40] VITALS: BP 105/65
[2022-11-02 20:31] VITALS: BP 102/65
[2022-11-02] MEDS: ACETAMINOPHEN TAB 650MG DOSE (2X325MG) PO PRN (21:32)
[2022-11-02] MEDS: risperiDONE 0.5 MG TAB PO SCH (21:32)
[2022-11-02] MEDS: DONEPEZIL 5 MG TAB PO SCH (21:32)
[2022-11-03 05:19] VITALS: BP 132/55
[2022-11-03 06:25] LABS: HEMATOCRIT 35.2 % (36.0-47.0); MEAN CORPUSCULAR HEMOGLOBIN 26.1 pg (27.0-33.0); MEAN CORPUSCULAR HGB CONC 31.3 g/dl (32.0-36.5); MEAN CORPUSCULAR VOLUME 83.4 fl (80.0-96.0); PLATELET COUNT, AUTOMATED 266 10^3/uL (150-450); RED BLOOD COUNT 4.22 10^6/uL (4.00-5.40); WHITE BLOOD COUNT 6.9 10^3/uL (4.0-10.0)
[2022-11-03 06:48] LABS: MAGNESIUM LEVEL 1.4 MG/DL (1.8-2.4)
[2022-11-03 06:50] LABS: ALBUMIN 2.5 G/DL (3.2-5.2); ALKALINE PHOSPHATASE 71 U/L (46-116); ALT/SGPT < 9 U/L (7.0-40); AST/SGOT 11 U/L (<34); BILIRUBIN,TOTAL 0.5 MG/DL (0.3-1.2); BLOOD UREA NITROGEN 6 MG/DL (9-23); CALCIUM LEVEL 8.7 MG/DL (8.3-10.6); CARBON DIOXIDE LEVEL 29 MMOL/L (20-31); CHLORIDE LEVEL 102 MMOL/L (98-107); CREATININE FOR GFR 0.61 MG/DL (0.55-1.30); GLOMERULAR FILTRATION RATE > 60.0 (>45); GLUCOSE, FASTING 151 MG/DL (74-106); POTASSIUM SERUM 3.9 MMOL/L (3.5-5.1); SODIUM LEVEL 137 MMOL/L (136-145); TOTAL PROTEIN 5.1 G/DL (5.7-8.2)
[2022-11-03] MEDS: MAGNESIUM OXIDE 400MG TAB (MAG-OX) PO ONE ×2 (07:35→10:42)
[2022-11-03] MEDS: ACETAMINOPHEN TAB 650MG DOSE (2X325MG) PO PRN (09:25)
[2022-11-03] MEDS: MAGNESIUM OXIDE 400MG TAB (MAG-OX) PO SCH (09:26)
[2022-11-03] MEDS: SIMETHICONE 80MG CHEW TAB PO SCH (09:26)
[2022-11-03] MEDS: NYSTATIN 100,000 UNITS/GM TOPICAL PWD 15GM TOP SCH (09:27)
[2022-11-03] MEDS: ENOXAPARIN 40MG/0.4ML SYRINGE (J1650 PER 10MG) SC SCH (09:27)
[2022-11-03] MEDS: INSULIN LISPRO (NovoLOG) PER UNIT SC SCH (09:28)
[2022-11-03] MEDS ORDERED: META1POW PO (10:00)
== END 2022-11-03 12:00 | DRG 392 ==
LOC: EDBD 10:01 → M ED 10:01 → M ED INP 13:47 → ENRESERV 15:18 → M MSPAV 15:59 → M ICU 10-31 10:18 → M MS5PR 11-01 22:13
PROVIDERS: ADMIT Surgery; ATTEND Internal Medicine
DX: K59.81 Ogilvie syndrome (principal); G10 Huntington's disease; K56.7 Ileus, unspecified; G47.33 Obstructive sleep apnea (adult) (pediatric); E11.51 Type 2 diabetes mellitus with diabetic peripheral angiopathy without gangrene; Z79.01 Long term (current) use of anticoagulants; Z79.82 Long term (current) use of aspirin; Z79.4 Long term (current) use of insulin; Z79.899 Other long term (current) drug therapy; Z88.8 Allergy status to other drugs, medicaments and biological substances; Z74.01 Bed confinement status

== ENCOUNTER 2023-01-24 15:19 | Inpatient (IN) | payer MEDICARE, MEDICAID ==
[~2023-01-24] VITALS: Ht 167.6 cm; Wt 98.0 kg
[~2023-01-24 15:19] MED LIST changes: -DONE10TA90 PO
[2023-01-24 17:21] LABS: BASO % 0.6 % (0.0-1.0); EOS # 0.1 10^3/uL (0.0-0.5); HEMATOCRIT 37.7 % (36.0-47.0); HEMOGLOBIN 12.2 g/dl (12.0-15.5); LYMPH # 1.6 10^3/uL (1.5-5.0); MEAN CORPUSCULAR HEMOGLOBIN 26.7 pg (27.0-33.0); MEAN CORPUSCULAR HGB CONC 32.4 g/dl (32.0-36.5); MEAN CORPUSCULAR VOLUME 82.5 fl (80.0-96.0); MONO # 0.6 10^3/uL (0.0-0.8); NEUTROPHILS # 4.6 10^3/uL (1.5-8.5); NEUTROPHILS % 66.1 % (36.0-66.0); PLATELET COUNT, AUTOMATED 312 10^3/uL (150-450); RED BLOOD COUNT 4.57 10^6/uL (4.00-5.40); WHITE BLOOD COUNT 6.9 10^3/uL (4.0-10.0)
[2023-01-24 17:47] LABS: BLOOD UREA NITROGEN 14 MG/DL (9-23); CALCIUM LEVEL 9.1 MG/DL (8.3-10.6); CARBON DIOXIDE LEVEL 28 MMOL/L (20-31); CHLORIDE LEVEL 98 MMOL/L (98-107); GLOMERULAR FILTRATION RATE > 60.0 (>45); GLUCOSE, FASTING 213 MG/DL (74-106); POTASSIUM SERUM 3.9 MMOL/L (3.5-5.1); SODIUM LEVEL 133 MMOL/L (136-145)
[2023-01-24] MEDS ORDERED: ISOVUE-370 76% 100ML VIAL As Ordered ONE (17:50)
[2023-01-24 17:51] LABS: RSV AMPLIFICATION NEGATIVE (NEGATIVE)
[2023-01-24] MEDS ORDERED: KETOROLAC 30 MG/ML 1ML VIAL IV PRN (18:55)
[2023-01-24] MEDS ORDERED: ACETAMINOPHEN TAB 650MG DOSE (2X325MG) PO PRN (18:55)
[2023-01-24] MEDS ORDERED: ONDANSETRON 4MG 2ML VIAL IV PRN (18:55)
[2023-01-24] MEDS ORDERED: DEXTROSE 50% 50ML SYRINGE IV PRN (19:15)
[2023-01-24] MEDS ORDERED: BISACODYL 10MG SUPP PR ONE (19:15)
[2023-01-24] MEDS ORDERED: GLUCAGON INJ 1MG VIAL SC PRN (19:15)
[2023-01-24] MEDS ORDERED: GLUCOSE 4GM CHEW TABLET PO PRN (19:15)
[2023-01-24] MEDS ORDERED: DONE10TA90 PO (19:55)
[2023-01-24] MEDS: FLEET ENEMA PR SCH (20:00)
[2023-01-24] MEDS ORDERED: HOME MED LIST COMPLETE! XX SCH (20:10)
[2023-01-24 20:47] VITALS: BP 154/57
[2023-01-24] MEDS: INSULIN LISPRO (NovoLOG) PER UNIT SC SCH (20:58)
[2023-01-24] MEDS ORDERED: DOCUSATE SODIUM 100MG CAPSULE PO SCH (21:00)
[2023-01-24] MEDS: DOCUSATE SOD LIQ 100MG/10ML UDC PO SCH (23:42)
[2023-01-25] MEDS: SIMETHICONE 80MG CHEW TAB PO SCH ×3 (00:58→20:19)
[2023-01-25] MEDS: RAMELTEON 8 MG TAB (ROZEREM) PO PRN ×2 (00:58→20:19)
[2023-01-25] MEDS: APIXABAN 5 MG TAB (ELIQUIS) PO SCH ×3 (00:58→20:19)
[2023-01-25] MEDS: DONEPEZIL 5 MG TAB PO SCH ×2 (00:58→20:19)
[2023-01-25] MEDS: MAGNESIUM OXIDE 400MG TAB (MAG-OX) PO SCH ×3 (00:58→20:20)
[2023-01-25 05:06] VITALS: BP 125/68
[2023-01-25 06:09] LABS: HEMATOCRIT 37.7 % (36.0-47.0); HEMOGLOBIN 12.1 g/dl (12.0-15.5); MEAN CORPUSCULAR HEMOGLOBIN 26.2 pg (27.0-33.0); MEAN CORPUSCULAR HGB CONC 32.1 g/dl (32.0-36.5); MEAN CORPUSCULAR VOLUME 81.6 fl (80.0-96.0); PLATELET COUNT, AUTOMATED 302 10^3/uL (150-450); RED BLOOD COUNT 4.62 10^6/uL (4.00-5.40); WHITE BLOOD COUNT 8.6 10^3/uL (4.0-10.0)
[2023-01-25 06:37] LABS: BLOOD UREA NITROGEN 14 MG/DL (9-23); CALCIUM LEVEL 9.3 MG/DL (8.3-10.6); CARBON DIOXIDE LEVEL 28 MMOL/L (20-31); CHLORIDE LEVEL 98 MMOL/L (98-107); CREATININE FOR GFR 0.61 MG/DL (0.55-1.30); GLOMERULAR FILTRATION RATE > 60.0 (>45); GLUCOSE, FASTING 245 MG/DL (74-106); MAGNESIUM LEVEL 1.5 MG/DL (1.8-2.4); POTASSIUM SERUM 3.9 MMOL/L (3.5-5.1); SODIUM LEVEL 133 MMOL/L (136-145)
[2023-01-25] MEDS: ASPIRIN 81MG ENTERIC TABLET PO SCH (09:06)
[2023-01-25] MEDS: BISACODYL 10MG SUPP PR SCH (09:06)
[2023-01-25] MEDS: LEVEMIR (INSULIN DETEMIR) 1 UNITS/0.01ML SC SCH (09:08)
[2023-01-25] MEDS: INSULIN LISPRO (NovoLOG) PER UNIT SC SCH ×4 (09:09→21:00)
[2023-01-25] MEDS: DOCUSATE SOD LIQ 100MG/10ML UDC PO SCH ×2 (09:18→20:20)
[2023-01-25] MEDS: MOM 30ML SUSPENSION UDC PO SCH (11:38)
[2023-01-25] MEDS: MIRALAX *UNIT DOSE* 17GM PACKET PO SCH (11:38)
[2023-01-25] MEDS: FLEET ENEMA PR SCH ×2 (11:39→21:00)
[2023-01-25 14:00] VITALS: BP 111/49
[2023-01-25 20:00] VITALS: BP 118/49
[2023-01-26 06:00] VITALS: BP 138/51
[2023-01-26 08:23] LABS: HEMATOCRIT 35.5 % (36.0-47.0); MEAN CORPUSCULAR HGB CONC 33.8 g/dl (32.0-36.5); MEAN CORPUSCULAR VOLUME 82.8 fl (80.0-96.0); PLATELET COUNT, AUTOMATED 263 10^3/uL (150-450); RED BLOOD COUNT 4.29 10^6/uL (4.00-5.40); WHITE BLOOD COUNT 5.7 10^3/uL (4.0-10.0)
[2023-01-26 08:45] LABS: BLOOD UREA NITROGEN 13 MG/DL (9-23); CALCIUM LEVEL 8.6 MG/DL (8.3-10.6); CARBON DIOXIDE LEVEL 29 MMOL/L (20-31); CHLORIDE LEVEL 102 MMOL/L (98-107); CREATININE FOR GFR 0.61 MG/DL (0.55-1.30); GLOMERULAR FILTRATION RATE > 60.0 (>45); GLUCOSE, FASTING 109 MG/DL (74-106); MAGNESIUM LEVEL 1.5 MG/DL (1.8-2.4); POTASSIUM SERUM 3.2 MMOL/L (3.5-5.1); SODIUM LEVEL 136 MMOL/L (136-145)
[2023-01-26] MEDS ORDERED: MAGNESIUM OXIDE 400MG TAB (MAG-OX) PO SCH (09:00)
[2023-01-26] MEDS: BISACODYL 10MG SUPP PR SCH (09:00)
[2023-01-26] MEDS: FLEET ENEMA PR SCH (09:00)
[2023-01-26] MEDS ORDERED: MIRA1POW3 PO (09:03)
[2023-01-26] MEDS ORDERED: MILKSUS3 PO (09:03)
[2023-01-26] MEDS ORDERED: FLEEENE12 PR (09:03)
[2023-01-26] MEDS: MOM 30ML SUSPENSION UDC PO SCH (09:21)
[2023-01-26] MEDS: DOCUSATE SOD LIQ 100MG/10ML UDC PO SCH (09:21)
[2023-01-26] MEDS: MIRALAX *UNIT DOSE* 17GM PACKET PO SCH (09:21)
[2023-01-26] MEDS: ASPIRIN 81MG ENTERIC TABLET PO SCH (09:23)
[2023-01-26] MEDS: SIMETHICONE 80MG CHEW TAB PO SCH (09:23)
[2023-01-26] MEDS: MAGNESIUM OXIDE 400MG TAB (MAG-OX) PO SCH (09:23)
[2023-01-26] MEDS: APIXABAN 5 MG TAB (ELIQUIS) PO SCH (09:23)
[2023-01-26] MEDS: INSULIN LISPRO (NovoLOG) PER UNIT SC SCH ×2 (09:24→11:32)
[2023-01-26] MEDS: LEVEMIR (INSULIN DETEMIR) 1 UNITS/0.01ML SC SCH (09:24)
[2023-01-26] MEDS: POTASSIUM CHLORIDE 10MEQ SR TABLET PO SCH ×2 (11:31→13:05)
[2023-01-26] MEDS ORDERED: POTASSIUM CHLORIDE 10MEQ SR TABLET PO ONE (13:05)
== END 2023-01-26 13:33 | DRG 389 ==
LOC: EDBD 15:19 → M ED 15:19 → M ED INP 18:54 → M MSPAV 20:28
PROVIDERS: ADMIT Internal Medicine; ATTEND Student in an Organized Health Care Education/Training Program
DX: K56.7 Ileus, unspecified (principal); G10 Huntington's disease; E11.51 Type 2 diabetes mellitus with diabetic peripheral angiopathy without gangrene; K59.81 Ogilvie syndrome; K86.89 Other specified diseases of pancreas; E83.42 Hypomagnesemia; Z86.711 Personal history of pulmonary embolism; Z79.01 Long term (current) use of anticoagulants; Z79.82 Long term (current) use of aspirin; Z79.899 Other long term (current) drug therapy; Z88.8 Allergy status to other drugs, medicaments and biological substances

== ENCOUNTER → 2023-01-24 | Outpatient (REF) | payer MEDICARE, MEDICAID ==
[~2023-01-24] MED LIST changes: +ARIC1TAB PO; +DONE10TA90 PO; +GLUC1LIQ18 PO; +META1POW PO
== END ==
LOC: SKLAB4 13:12
PROVIDERS: ATTEND Nurse Practitioner
DX: K63.89 Other specified diseases of intestine (principal); M85.88 Other specified disorders of bone density and structure, other site; R14.0 Abdominal distension (gaseous)

== ENCOUNTER → 2023-01-27 | Outpatient (REF) | payer MEDICARE, MEDICAID ==
[~2023-01-27] MED LIST changes: +DONE10TA90 PO; +MIRA1POW3 PO
[2023-01-27 09:12] LABS: BLOOD UREA NITROGEN 12 MG/DL (9-23); CALCIUM LEVEL 8.8 MG/DL (8.3-10.6); CARBON DIOXIDE LEVEL 30 MMOL/L (20-31); CHLORIDE LEVEL 101 MMOL/L (98-107); CREATININE FOR GFR 0.63 MG/DL (0.55-1.30); GLOMERULAR FILTRATION RATE > 60.0 (>45); GLUCOSE, FASTING 145 MG/DL (74-106); POTASSIUM SERUM 3.7 MMOL/L (3.5-5.1); SODIUM LEVEL 136 MMOL/L (136-145)
== END ==
LOC: SKLAB4 08:29
PROVIDERS: ATTEND Nurse Practitioner Adult Health
DX: E87.6 Hypokalemia (principal)

== ENCOUNTER → 2023-02-03 | Outpatient (REF) | payer MEDICARE, MEDICAID ==
[2023-02-03 14:09] LABS: HEMATOCRIT 39.9 % (36.0-47.0); HEMOGLOBIN 12.6 g/dl (12.0-15.5); MEAN CORPUSCULAR HEMOGLOBIN 26.2 pg (27.0-33.0); MEAN CORPUSCULAR HGB CONC 31.6 g/dl (32.0-36.5); PLATELET COUNT, AUTOMATED 298 10^3/uL (150-450); RED BLOOD COUNT 4.81 10^6/uL (4.00-5.40); WHITE BLOOD COUNT 7.7 10^3/uL (4.0-10.0)
[2023-02-03 14:12] LABS: ALBUMIN 3.4 G/DL (3.2-5.2); ALKALINE PHOSPHATASE 101 U/L (46-116); ALT/SGPT 16 U/L (7.0-40); AST/SGOT 11 U/L (<34); BILIRUBIN,TOTAL 0.8 MG/DL (0.3-1.2); BLOOD UREA NITROGEN 20 MG/DL (9-23); CALCIUM LEVEL 9.3 MG/DL (8.3-10.6); CARBON DIOXIDE LEVEL 26 MMOL/L (20-31); CHLORIDE LEVEL 96 MMOL/L (98-107); CREATININE FOR GFR 0.58 MG/DL (0.55-1.30); GLOMERULAR FILTRATION RATE > 60.0 (>45); GLUCOSE, FASTING 263 MG/DL (74-106); POTASSIUM SERUM 4.1 MMOL/L (3.5-5.1); SODIUM LEVEL 131 MMOL/L (136-145); TOTAL PROTEIN 6.6 G/DL (5.7-8.2)
== END ==
LOC: SKLAB4 12:05
PROVIDERS: ATTEND Nurse Practitioner Adult Health
DX: R41.82 Altered mental status, unspecified (principal)

== ENCOUNTER → 2023-02-06 | Outpatient (REF) | payer MEDICARE, MEDICAID ==
[2023-02-06 08:41] LABS: BLOOD UREA NITROGEN 20 MG/DL (9-23); CALCIUM LEVEL 9.7 MG/DL (8.3-10.6); CARBON DIOXIDE LEVEL 24 MMOL/L (20-31); CHLORIDE LEVEL 99 MMOL/L (98-107); CREATININE FOR GFR 0.62 MG/DL (0.55-1.30); GLOMERULAR FILTRATION RATE > 60.0 (>45); GLUCOSE, FASTING 297 MG/DL (74-106); POTASSIUM SERUM 3.8 MMOL/L (3.5-5.1); SODIUM LEVEL 131 MMOL/L (136-145)
== END ==
LOC: SKLAB4 08:11
PROVIDERS: ATTEND Nurse Practitioner Adult Health
DX: E87.1 Hypo-osmolality and hyponatremia (principal)

== ENCOUNTER → 2023-02-10 | Outpatient (REF) | payer MEDICARE, MEDICAID ==
[2023-02-10 08:13] LABS: BLOOD UREA NITROGEN 11 MG/DL (9-23); CARBON DIOXIDE LEVEL 28 MMOL/L (20-31); CHLORIDE LEVEL 101 MMOL/L (98-107); CREATININE FOR GFR 0.54 MG/DL (0.55-1.30); GLOMERULAR FILTRATION RATE > 60.0 (>45); GLUCOSE, FASTING 178 MG/DL (74-106); POTASSIUM SERUM 3.8 MMOL/L (3.5-5.1); SODIUM LEVEL 135 MMOL/L (136-145)
== END ==
LOC: SKLAB4 08:22
PROVIDERS: ATTEND Nurse Practitioner Adult Health
DX: E11.9 Type 2 diabetes mellitus without complications (principal)

== ENCOUNTER → 2023-04-25 | Outpatient (CLI) | payer MEDICARE, MEDICAID | LOC: M WHC 12:35 | PROVIDERS: ATTEND Nurse Practitioner Adult Health | DX: Z12.31 Encounter for screening mammogram for malignant neoplasm of breast (principal) ==

== ENCOUNTER → 2023-05-03 | Outpatient (REF) | payer MEDICARE, MEDICAID ==
[2023-05-03 08:07] LABS: HEMATOCRIT 38.1 % (36.0-47.0); HEMOGLOBIN 12.2 g/dl (12.0-15.5); MEAN CORPUSCULAR HEMOGLOBIN 26.8 pg (27.0-33.0); MEAN CORPUSCULAR VOLUME 83.6 fl (80.0-96.0); PLATELET COUNT, AUTOMATED 221 10^3/uL (150-450); RED BLOOD COUNT 4.56 10^6/uL (4.00-5.40); WHITE BLOOD COUNT 5.5 10^3/uL (4.0-10.0)
[2023-05-03 08:26] LABS: ALBUMIN 3.1 G/DL (3.2-5.2); ALKALINE PHOSPHATASE 96 U/L (46-116); ALT/SGPT 12 U/L (7.0-40); AST/SGOT 8 U/L (<34); BILIRUBIN,TOTAL 0.5 MG/DL (0.3-1.2); BLOOD UREA NITROGEN 17 MG/DL (9-23); CALCIUM LEVEL 8.9 MG/DL (8.3-10.6); CARBON DIOXIDE LEVEL 28 MMOL/L (20-31); CHLORIDE LEVEL 102 MMOL/L (98-107); CREATININE FOR GFR 0.63 MG/DL (0.55-1.30); GLOMERULAR FILTRATION RATE > 60.0 (>45); GLUCOSE, FASTING 184 MG/DL (74-106); POTASSIUM SERUM 3.9 MMOL/L (3.5-5.1); SODIUM LEVEL 136 MMOL/L (136-145); TOTAL PROTEIN 5.8 G/DL (5.7-8.2)
[2023-05-03 09:03] LABS: HEMOGLOBIN A1c 7.5 % (4.0-6.0)
== END ==
LOC: SKLAB4 08:38
PROVIDERS: ATTEND Nurse Practitioner Adult Health
DX: E11.9 Type 2 diabetes mellitus without complications (principal)

== ENCOUNTER → 2023-06-14 | Outpatient (REF) | payer MEDICARE, MEDICAID ==
[2023-06-14 13:03] LABS: BLOOD UREA NITROGEN 16 MG/DL (9-23); CALCIUM LEVEL 8.8 MG/DL (8.3-10.6); CARBON DIOXIDE LEVEL 28 MMOL/L (20-31); CHLORIDE LEVEL 101 MMOL/L (98-107); CREATININE FOR GFR 0.55 MG/DL (0.55-1.30); GLOMERULAR FILTRATION RATE > 60.0 (>45); GLUCOSE, FASTING 167 MG/DL (74-106); POTASSIUM SERUM 3.9 MMOL/L (3.5-5.1); SODIUM LEVEL 136 MMOL/L (136-145)
== END ==
LOC: SKLAB4 11:42
PROVIDERS: ATTEND Nurse Practitioner Adult Health
DX: R14.0 Abdominal distension (gaseous) (principal); K59.81 Ogilvie syndrome

== ENCOUNTER → 2023-06-14 | Outpatient (CLI) | payer MEDICARE, MEDICAID ==
[~2023-06-14] MED LIST changes: +ISOVUE-370 76% 100ML VIAL As Ordered ONE
== END ==
LOC: M RAD 13:09
PROVIDERS: ATTEND Nurse Practitioner Adult Health
DX: Z01.818 Encounter for other preprocedural examination (principal); R14.0 Abdominal distension (gaseous); K59.81 Ogilvie syndrome
CPT/HCPCS: 36415; 74177; 80048; Q9967

== ENCOUNTER 2023-08-20 19:42 | Inpatient (IN) | payer MEDICARE, MEDICAID ==
[~2023-08-20] VITALS: Ht 172.7 cm; Wt 102.7 kg
[~2023-08-20 19:42] MED LIST changes: -BUSP10TA PO; -JUVE1POW PO; -LEXA1TAB PO; -MELA5TAB7 PO; -MEMA1TAB3 PO
[2023-08-20] MEDS ORDERED: MEMA1TAB3 PO (20:28)
[2023-08-20] MEDS ORDERED: MELA5TAB7 PO (20:28)
[2023-08-20] MEDS ORDERED: ONDA-83 PO (20:28)
[2023-08-20] MEDS ORDERED: LEXA1TAB PO (20:28)
[2023-08-20] MEDS ORDERED: DULC10SU2 PR (20:28)
[2023-08-20] MEDS ORDERED: BUSP10TA PO (20:28)
[2023-08-20] MEDS ORDERED: RISP0.253 PO (20:28)
[2023-08-20] MEDS ORDERED: MILKSUS3 PO (20:28)
[2023-08-20] MEDS ORDERED: SIME80CH6 PO (20:28)
[2023-08-20] MEDS ORDERED: JUVE1POW PO (20:28)
[2023-08-20] MEDS ORDERED: HOME MED LIST COMPLETE! XX SCH (20:30)
[2023-08-20] MEDS: GASTROGRAFIN SOLUTION 30ML PO SCH ×2 (20:51→21:29)
[2023-08-20 21:27] LABS: BASO % 0.4 % (0.0-1.0); EOS # 0.2 10^3/uL (0.0-0.5); EOS % 1.7 % (0.0-3.0); HEMATOCRIT 39.1 % (36.0-47.0); HEMOGLOBIN 13.1 g/dl (12.0-15.5); LYMPH # 1.9 10^3/uL (1.5-5.0); LYMPH % 20.5 % (24.0-44.0); MEAN CORPUSCULAR HEMOGLOBIN 28.4 pg (27.0-33.0); MEAN CORPUSCULAR HGB CONC 33.5 g/dl (32.0-36.5); MEAN CORPUSCULAR VOLUME 84.8 fl (80.0-96.0); MONO # 0.6 10^3/uL (0.0-0.8); MONO % 6.2 % (2.0-8.0); NEUTROPHILS # 6.5 10^3/uL (1.5-8.5); PLATELET COUNT, AUTOMATED 292 10^3/uL (150-450); RED BLOOD COUNT 4.61 10^6/uL (4.00-5.40); WHITE BLOOD COUNT 9.2 10^3/uL (4.0-10.0)
[2023-08-20 22:45] LABS: ALBUMIN 3.4 G/DL (3.2-5.2); ALKALINE PHOSPHATASE 100 U/L (46-116); ALT/SGPT 16 U/L (7.0-40); AST/SGOT 24 U/L (<34); BILIRUBIN,TOTAL 0.6 MG/DL (0.3-1.2); BLOOD UREA NITROGEN 18 MG/DL (9-23); CALCIUM LEVEL 9.4 MG/DL (8.3-10.6); CARBON DIOXIDE LEVEL 27 MMOL/L (20-31); CHLORIDE LEVEL 101 MMOL/L (98-107); CREATININE FOR GFR 0.55 MG/DL (0.55-1.30); GLOMERULAR FILTRATION RATE > 60.0 (>45); GLUCOSE, FASTING 141 MG/DL (74-106); POTASSIUM SERUM 3.5 MMOL/L (3.5-5.1); SODIUM LEVEL 136 MMOL/L (136-145); TOTAL PROTEIN 6.6 G/DL (5.7-8.2)
[2023-08-20] MEDS ORDERED: ISOVUE-370 76% 100ML VIAL As Ordered ONE (22:47)
[2023-08-20 22:55] LABS: MAGNESIUM LEVEL 1.6 MG/DL (1.8-2.4)
[2023-08-21] MEDS ORDERED: GLUCOSE 4GM CHEW TABLET PO PRN (00:10)
[2023-08-21] MEDS ORDERED: ONDANSETRON 4MG 2ML VIAL IV PRN (00:10)
[2023-08-21] MEDS ORDERED: HYDROMORPHONE HCL 0.5 MG/ 0.5 ML SYRINGE IV PRN ×2 (00:10)
[2023-08-21] MEDS ORDERED: DEXTROSE 50% 50ML SYRINGE IV PRN (00:10)
[2023-08-21] MEDS ORDERED: GLUCAGON INJ 1MG VIAL SC PRN (00:10)
[2023-08-21] MEDS: LR 1,000 ML IV SCH ×3 (00:36→17:18)
[2023-08-21] MEDS: INSULIN LISPRO (NovoLOG) PER UNIT SC SCH ×4 (00:40→17:37)
[2023-08-21] MEDS ORDERED: ENOXAPARIN 100MG/1ML SYRINGE (J1650 PER 10MG) SC ONE (01:00)
[2023-08-21 01:54] LABS: RSV AMPLIFICATION NEGATIVE (NEGATIVE)
[2023-08-21 02:38] VITALS: BP 128/64; TEMP 97; O2SAT 96
[2023-08-21 06:29] VITALS: BP 131/64; TEMP 97.5
[2023-08-21] MEDS ORDERED: MORPHINE 2 MG/ML 1ML VIAL IV PRN (08:10)
[2023-08-21] MEDS ORDERED: MORPHINE 4 MG/ML 1ML VIAL IV PRN (08:10)
[2023-08-21] MEDS: PANTOPRAZOLE 40MG VIAL IV SCH (08:39)
[2023-08-21 08:46] LABS: HEMATOCRIT 36.2 % (36.0-47.0); MEAN CORPUSCULAR HEMOGLOBIN 28.1 pg (27.0-33.0); MEAN CORPUSCULAR HGB CONC 33.1 g/dl (32.0-36.5); MEAN CORPUSCULAR VOLUME 84.8 fl (80.0-96.0); PLATELET COUNT, AUTOMATED 243 10^3/uL (150-450); RED BLOOD COUNT 4.27 10^6/uL (4.00-5.40); WHITE BLOOD COUNT 7.8 10^3/uL (4.0-10.0)
[2023-08-21] MEDS: LEVEMIR (INSULIN DETEMIR) 1 UNITS/0.01ML SC SCH (09:00)
[2023-08-21 09:06] LABS: ALBUMIN 3.3 G/DL (3.2-5.2); ALKALINE PHOSPHATASE 90 U/L (46-116); ALT/SGPT < 9 U/L (7.0-40); AST/SGOT 11 U/L (<34); BILIRUBIN,TOTAL 0.6 MG/DL (0.3-1.2); BLOOD UREA NITROGEN 13 MG/DL (9-23); CALCIUM LEVEL 8.9 MG/DL (8.3-10.6); CARBON DIOXIDE LEVEL 28 MMOL/L (20-31); CHLORIDE LEVEL 101 MMOL/L (98-107); CREATININE FOR GFR 0.55 MG/DL (0.55-1.30); GLOMERULAR FILTRATION RATE > 60.0 (>45); GLUCOSE, FASTING 145 MG/DL (74-106); MAGNESIUM LEVEL 1.5 MG/DL (1.8-2.4); POTASSIUM SERUM 3.3 MMOL/L (3.5-5.1); SODIUM LEVEL 136 MMOL/L (136-145); TOTAL PROTEIN 6.2 G/DL (5.7-8.2)
[2023-08-21] MEDS ORDERED: BISACODYL 10MG SUPP PR PRN (09:30)
[2023-08-21] MEDS: MIRALAX *UNIT DOSE* 17GM PACKET PO SCH ×2 (10:03→21:32)
[2023-08-21] MEDS: METOCLOPRAMIDE 10MG TAB PO SCH ×2 (12:19→17:18)
[2023-08-21] MEDS: SIMETHICONE 80MG CHEW TAB PO SCH ×2 (12:19→17:18)
[2023-08-21] MEDS: ENOXAPARIN 100MG/1ML SYRINGE (J1650 PER 10MG) SC SCH ×2 (12:20→21:32)
[2023-08-21] MEDS ORDERED: POTASSIUM CHLORIDE 10MEQ SR TABLET PO ONE (12:30)
[2023-08-21] MEDS ORDERED: MAG SULF 1GM/100ML (MAG RUN) 1 GM in IV 1 EA IV SCH (13:00)
[2023-08-21 14:00] VITALS: BP 124/63; TEMP 97.9; O2SAT 95
[2023-08-21 19:56] VITALS: BP 119/59; TEMP 97.9; O2SAT 96
[2023-08-22] MEDS: SIMETHICONE 80MG CHEW TAB PO SCH ×4 (00:55→17:15)
[2023-08-22] MEDS: METOCLOPRAMIDE 10MG TAB PO SCH ×4 (00:55→17:15)
[2023-08-22] MEDS: LR 1,000 ML IV SCH ×3 (00:58→22:06)
[2023-08-22] MEDS: INSULIN LISPRO (NovoLOG) PER UNIT SC SCH ×4 (06:00→16:43)
[2023-08-22 06:12] VITALS: BP 121/57; TEMP 97.5; O2SAT 96
[2023-08-22 07:36] LABS: HEMATOCRIT 34.7 % (36.0-47.0); HEMOGLOBIN 11.2 g/dl (12.0-15.5); MEAN CORPUSCULAR HEMOGLOBIN 28.2 pg (27.0-33.0); MEAN CORPUSCULAR HGB CONC 32.3 g/dl (32.0-36.5); MEAN CORPUSCULAR VOLUME 87.4 fl (80.0-96.0); PLATELET COUNT, AUTOMATED 210 10^3/uL (150-450); RED BLOOD COUNT 3.97 10^6/uL (4.00-5.40); WHITE BLOOD COUNT 4.6 10^3/uL (4.0-10.0)
[2023-08-22 08:01] LABS: ALKALINE PHOSPHATASE 81 U/L (46-116); ALT/SGPT 10 U/L (7.0-40); AST/SGOT 9 U/L (<34); BILIRUBIN,TOTAL 0.5 MG/DL (0.3-1.2); BLOOD UREA NITROGEN 10 MG/DL (9-23); CALCIUM LEVEL 8.8 MG/DL (8.3-10.6); CARBON DIOXIDE LEVEL 29 MMOL/L (20-31); CHLORIDE LEVEL 104 MMOL/L (98-107); CREATININE FOR GFR 0.58 MG/DL (0.55-1.30); GLOMERULAR FILTRATION RATE > 60.0 (>45); GLUCOSE, FASTING 99 MG/DL (74-106); MAGNESIUM LEVEL 1.6 MG/DL (1.8-2.4); POTASSIUM SERUM 3.8 MMOL/L (3.5-5.1); SODIUM LEVEL 137 MMOL/L (136-145); TOTAL PROTEIN 5.5 G/DL (5.7-8.2)
[2023-08-22] MEDS: LEVEMIR (INSULIN DETEMIR) 1 UNITS/0.01ML SC SCH (09:00)
[2023-08-22] MEDS: PANTOPRAZOLE 40MG VIAL IV SCH (09:35)
[2023-08-22] MEDS: ENOXAPARIN 100MG/1ML SYRINGE (J1650 PER 10MG) SC SCH ×2 (09:36→20:19)
[2023-08-22] MEDS: MIRALAX *UNIT DOSE* 17GM PACKET PO SCH ×2 (09:36→20:19)
[2023-08-22 14:00] VITALS: BP 122/86; TEMP 97.7; O2SAT 96
[2023-08-22 15:23] LABS: ALBUMIN 2.9 G/DL (3.2-5.2)
[2023-08-22] MEDS ORDERED: MAG SULF 1GM/100ML (MAG RUN) 1 GM in IV 1 EA IV ONE (19:15)
[2023-08-22 20:54] VITALS: BP 141/50; TEMP 97.9; O2SAT 96
[2023-08-22] MEDS ORDERED: RAMELTEON 8 MG TAB (ROZEREM) PO PRN (22:15)
[2023-08-23] MEDS: METOCLOPRAMIDE 10MG TAB PO SCH ×4 (00:20→17:00)
[2023-08-23] MEDS: SIMETHICONE 80MG CHEW TAB PO SCH ×4 (00:20→17:00)
[2023-08-23] MEDS: INSULIN LISPRO (NovoLOG) PER UNIT SC SCH ×4 (06:00→17:00)
[2023-08-23 06:15] VITALS: BP 138/50; TEMP 97.5; O2SAT 96
[2023-08-23 07:40] LABS: HEMATOCRIT 37.9 % (36.0-47.0); HEMOGLOBIN 12.5 g/dl (12.0-15.5); MEAN CORPUSCULAR HEMOGLOBIN 28.6 pg (27.0-33.0); MEAN CORPUSCULAR VOLUME 86.7 fl (80.0-96.0); PLATELET COUNT, AUTOMATED 198 10^3/uL (150-450); RED BLOOD COUNT 4.37 10^6/uL (4.00-5.40); WHITE BLOOD COUNT 5.2 10^3/uL (4.0-10.0)
[2023-08-23 08:09] LABS: ALKALINE PHOSPHATASE 86 U/L (46-116); ALT/SGPT < 9 U/L (7.0-40); AST/SGOT 11 U/L (<34); BILIRUBIN,TOTAL 0.6 MG/DL (0.3-1.2); BLOOD UREA NITROGEN 7 MG/DL (9-23); CALCIUM LEVEL 8.9 MG/DL (8.3-10.6); CARBON DIOXIDE LEVEL 29 MMOL/L (20-31); CHLORIDE LEVEL 105 MMOL/L (98-107); CREATININE FOR GFR 0.59 MG/DL (0.55-1.30); GLOMERULAR FILTRATION RATE > 60.0 (>45); GLUCOSE, FASTING 92 MG/DL (74-106); POTASSIUM SERUM 4.1 MMOL/L (3.5-5.1); SODIUM LEVEL 139 MMOL/L (136-145); TOTAL PROTEIN 5.7 G/DL (5.7-8.2)
[2023-08-23] MEDS: LEVEMIR (INSULIN DETEMIR) 1 UNITS/0.01ML SC SCH (09:00)
[2023-08-23] MEDS: ENOXAPARIN 100MG/1ML SYRINGE (J1650 PER 10MG) SC SCH ×2 (09:04→20:54)
[2023-08-23] MEDS: PANTOPRAZOLE 40MG VIAL IV SCH (09:04)
[2023-08-23] MEDS: MIRALAX *UNIT DOSE* 17GM PACKET PO SCH ×2 (09:04→20:53)
[2023-08-23] MEDS: LR 1,000 ML IV SCH (09:05)
[2023-08-23 14:00] VITALS: BP 138/52; TEMP 97.7; O2SAT 98
[2023-08-23 20:07] VITALS: BP 126/53; TEMP 97.7; O2SAT 98
[2023-08-24] MEDS: SIMETHICONE 80MG CHEW TAB PO SCH ×3 (05:25→12:14)
[2023-08-24] MEDS: METOCLOPRAMIDE 10MG TAB PO SCH ×3 (05:25→12:14)
[2023-08-24 05:47] VITALS: BP 125/53; TEMP 97.7; O2SAT 96
[2023-08-24 06:57] LABS: BASO % 0.8 % (0.0-1.0); EOS # 0.1 10^3/uL (0.0-0.5); EOS % 2.5 % (0.0-3.0); HEMATOCRIT 35.2 % (36.0-47.0); HEMOGLOBIN 11.4 g/dl (12.0-15.5); LYMPH # 1.5 10^3/uL (1.5-5.0); LYMPH % 28.3 % (24.0-44.0); MEAN CORPUSCULAR HEMOGLOBIN 27.9 pg (27.0-33.0); MEAN CORPUSCULAR HGB CONC 32.4 g/dl (32.0-36.5); MEAN CORPUSCULAR VOLUME 86.1 fl (80.0-96.0); MONO # 0.5 10^3/uL (0.0-0.8); MONO % 9.1 % (2.0-8.0); NEUTROPHILS # 3.1 10^3/uL (1.5-8.5); NEUTROPHILS % 59.1 % (36.0-66.0); PLATELET COUNT, AUTOMATED 214 10^3/uL (150-450); RED BLOOD COUNT 4.09 10^6/uL (4.00-5.40); WHITE BLOOD COUNT 5.3 10^3/uL (4.0-10.0)
[2023-08-24 07:16] LABS: BLOOD UREA NITROGEN 9 MG/DL (9-23); CALCIUM LEVEL 8.4 MG/DL (8.3-10.6); CARBON DIOXIDE LEVEL 28 MMOL/L (20-31); CHLORIDE LEVEL 103 MMOL/L (98-107); CREATININE FOR GFR 0.63 MG/DL (0.55-1.30); GLOMERULAR FILTRATION RATE > 60.0 (>45); GLUCOSE, FASTING 102 MG/DL (74-106); MAGNESIUM LEVEL 1.4 MG/DL (1.8-2.4); POTASSIUM SERUM 3.8 MMOL/L (3.5-5.1); SODIUM LEVEL 137 MMOL/L (136-145)
[2023-08-24] MEDS: INSULIN LISPRO (NovoLOG) PER UNIT SC SCH ×2 (07:30→12:14)
[2023-08-24] MEDS: MIRALAX *UNIT DOSE* 17GM PACKET PO SCH (09:00)
[2023-08-24] MEDS: LEVEMIR (INSULIN DETEMIR) 1 UNITS/0.01ML SC SCH (09:31)
[2023-08-24] MEDS: PANTOPRAZOLE 40MG VIAL IV SCH (09:31)
[2023-08-24] MEDS: ENOXAPARIN 100MG/1ML SYRINGE (J1650 PER 10MG) SC SCH (09:32)
[2023-08-24] MEDS ORDERED: MAG SULF 1GM/100ML (MAG RUN) 1 GM in IV 1 EA IV STA (10:03)
[2023-08-24] MEDS ORDERED: MAG SULF 1GM/100ML (MAG RUN) IV ONE ×2 (11:00)
[2023-08-24] MEDS ORDERED: INSULIN LISPRO (NovoLOG) PER UNIT SC SCH (21:00)
== END 2023-08-24 13:40 | DRG 389 ==
LOC: M ED 19:42 → M ED INP 08-21 00:07 → ENRESERV 08-21 02:00 → M MS5PR 08-21 02:38
PROVIDERS: ADMIT Internal Medicine; ATTEND Student in an Organized Health Care Education/Training Program
DX: K56.7 Ileus, unspecified (principal); G10 Huntington's disease; E11.9 Type 2 diabetes mellitus without complications; Z86.711 Personal history of pulmonary embolism; Z79.01 Long term (current) use of anticoagulants; Z79.82 Long term (current) use of aspirin; Z79.4 Long term (current) use of insulin; Z79.899 Other long term (current) drug therapy; Z88.8 Allergy status to other drugs, medicaments and biological substances; E87.6 Hypokalemia; E83.42 Hypomagnesemia; F41.9 Anxiety disorder, unspecified; F32.A Depression, unspecified

== ENCOUNTER → 2023-08-20 | Outpatient (REF) | payer MEDICARE, MEDICAID ==
[~2023-08-20] MED LIST changes: +BUSP10TA PO; -ISOVUE-370 76% 100ML VIAL As Ordered ONE; +JUVE1POW PO; +LEXA1TAB PO; +MELA5TAB7 PO; +MEMA1TAB3 PO
== END ==
LOC: M RAD 18:16
PROVIDERS: ATTEND Family Medicine
DX: R10.9 Unspecified abdominal pain (principal)

== ENCOUNTER → 2023-08-27 | Outpatient (REF) | payer MEDICARE, MEDICAID ==
[~2023-08-27] MED LIST changes: +BUSP10TA PO; +JUVE1POW PO; +LEXA1TAB PO; +MELA5TAB7 PO; +MEMA1TAB3 PO
== END ==
LOC: SKLAB4 02:00
PROVIDERS: ATTEND Family Medicine
DX: R14.0 Abdominal distension (gaseous) (principal)

== ENCOUNTER → 2023-08-28 | Outpatient (REF) | payer MEDICARE, MEDICAID | LOC: SKLAB4 07:54 | PROVIDERS: ATTEND Nurse Practitioner Adult Health | DX: R14.0 Abdominal distension (gaseous) (principal); Z53.8 Procedure and treatment not carried out for other reasons ==

== ENCOUNTER → 2023-08-30 | Outpatient (CLI) | payer MEDICARE, MEDICAID ==
[~2023-08-30] MED LIST changes: +ASPI81CH33 PO; +GLUC1LIQ7 PO; +[UNRECOGNIZED DRUG - CODE] IM
== END ==
LOC: M RAD 10:16
PROVIDERS: ATTEND Family Medicine
DX: K56.7 Ileus, unspecified (principal)

== ENCOUNTER 2023-08-31 10:35 | Inpatient (IN) | payer MEDICARE, MEDICAID ==
[~2023-08-31 10:35] MED LIST changes: -ASPI81CH33 PO; -GLUC1LIQ7 PO; -[UNRECOGNIZED DRUG - CODE] IM
[2023-08-31] MEDS ORDERED: NS 1,000 ML IV SCH (11:30)
[2023-08-31 11:53] LABS: BASO % 0.5 % (0.0-1.0); EOS % 0.5 % (0.0-3.0); HEMATOCRIT 40.8 % (36.0-47.0); HEMOGLOBIN 13.1 g/dl (12.0-15.5); LYMPH # 0.6 10^3/uL (1.5-5.0); LYMPH % 8.5 % (24.0-44.0); MEAN CORPUSCULAR HEMOGLOBIN 27.6 pg (27.0-33.0); MEAN CORPUSCULAR HGB CONC 32.1 g/dl (32.0-36.5); MEAN CORPUSCULAR VOLUME 85.9 fl (80.0-96.0); MONO # 0.3 10^3/uL (0.0-0.8); MONO % 3.9 % (2.0-8.0); NEUTROPHILS # 5.6 10^3/uL (1.5-8.5); NEUTROPHILS % 86.4 % (36.0-66.0); PLATELET COUNT, AUTOMATED 274 10^3/uL (150-450); RED BLOOD COUNT 4.75 10^6/uL (4.00-5.40); WHITE BLOOD COUNT 6.5 10^3/uL (4.0-10.0)
[2023-08-31 12:20] LABS: ALBUMIN 3.3 G/DL (3.2-5.2); BILIRUBIN,DIRECT 0.2 MG/DL (<0.4); BILIRUBIN,TOTAL 0.6 MG/DL (0.3-1.2); TOTAL PROTEIN 6.4 G/DL (5.7-8.2)
[2023-08-31] MEDS ORDERED: ISOVUE-370 76% 100ML VIAL As Ordered ONE (12:36)
[2023-08-31] MEDS ORDERED: MED REC IN PROGRESS XX SCH (14:55)
[2023-08-31] MEDS ORDERED: GLUC1LIQ18 PO (15:28)
[2023-08-31] MEDS ORDERED: MIRA3350 PO (15:28)
[2023-08-31] MEDS ORDERED: GLUC1LIQ7 PO (15:28)
[2023-08-31] MEDS ORDERED: ASPI81CH33 PO (15:28)
[2023-08-31] MEDS ORDERED: FLEEENE12 PR (15:28)
[2023-08-31] MEDS ORDERED: MILKSUS3 PO (15:28)
[2023-08-31] MEDS ORDERED: [UNRECOGNIZED DRUG - CODE] IM (15:28)
[2023-08-31] MEDS ORDERED: HOME MED LIST COMPLETE! XX SCH (15:30)
[2023-08-31] MEDS: NS 1,000 ML IV SCH ×2 (15:45→21:56)
[2023-08-31] MEDS ORDERED: DEXTROSE 50% 50ML SYRINGE IV PRN (15:50)
[2023-08-31] MEDS ORDERED: GLUCOSE 4GM CHEW TABLET PO PRN (15:50)
[2023-08-31] MEDS ORDERED: GLUCAGON INJ 1MG VIAL SC PRN (15:50)
[2023-08-31 17:39] LABS: INR 1.1; PROTHROMBIN TIME 13.9 SECONDS (12.5-14.5)
[2023-08-31 17:40] LABS: PARTIAL THROMBOPLASTIN TIME 33.9 SECONDS (24.8-34.2)
[2023-08-31] MEDS: INSULIN LISPRO (NovoLOG) PER UNIT SC SCH (18:00)
[2023-08-31] MEDS: ENOXAPARIN 100MG/1ML SYRINGE (J1650 PER 10MG) SC SCH (19:24)
[2023-08-31] MEDS: BISACODYL 10MG SUPP PR SCH (19:24)
[2023-08-31 20:27] VITALS: BP 114/67; TEMP 98.8; O2SAT 98
[2023-09-01] MEDS: BISACODYL 10MG SUPP PR SCH ×5 (00:15→23:31)
[2023-09-01] MEDS: INSULIN LISPRO (NovoLOG) PER UNIT SC SCH ×4 (00:29→20:29)
[2023-09-01 04:59] VITALS: BP 127/58; TEMP 97.7; O2SAT 95
[2023-09-01] MEDS: ENOXAPARIN 100MG/1ML SYRINGE (J1650 PER 10MG) SC SCH ×2 (05:32→17:46)
[2023-09-01 05:56] LABS: HEMATOCRIT 36.9 % (36.0-47.0); HEMOGLOBIN 11.9 g/dl (12.0-15.5); MEAN CORPUSCULAR HEMOGLOBIN 27.7 pg (27.0-33.0); MEAN CORPUSCULAR HGB CONC 32.2 g/dl (32.0-36.5); MEAN CORPUSCULAR VOLUME 85.8 fl (80.0-96.0); PLATELET COUNT, AUTOMATED 255 10^3/uL (150-450); WHITE BLOOD COUNT 5.8 10^3/uL (4.0-10.0)
[2023-09-01] MEDS ORDERED: SIMETHICONE 80MG CHEW TAB PO PRN (07:30)
[2023-09-01] MEDS ORDERED: MAGNESIUM CITRATE 300ML BTL PO ONE (08:05)
[2023-09-01] MEDS: NS 1,000 ML IV SCH ×2 (08:49→18:06)
[2023-09-01] MEDS ORDERED: LEVEMIR (INSULIN DETEMIR) 1 UNITS/0.01ML SC SCH (09:00)
[2023-09-01] MEDS ORDERED: APIXABAN 5 MG TAB (ELIQUIS) PO SCH (09:00)
[2023-09-01] MEDS: ASPIRIN 81MG CHEW TABLET PO SCH (09:24)
[2023-09-01] MEDS: MEMANTINE 5MG TABLET (NAMENDA) PO SCH ×2 (09:24→20:49)
[2023-09-01] MEDS: ESCITALOPRAM OXALATE 10 MG TAB (LEXAPRO) PO SCH (09:25)
[2023-09-01] MEDS: busPIRone 10 MG TAB PO SCH ×2 (09:25→20:49)
[2023-09-01] MEDS: risperiDONE 0.5 MG TAB PO SCH ×2 (09:25→20:49)
[2023-09-01] MEDS: MAGNESIUM OXIDE 400MG TAB (MAG-OX) PO SCH ×2 (09:25→20:49)
[2023-09-01] MEDS: SIMETHICONE 80MG CHEW TAB PO SCH ×2 (09:30→20:49)
[2023-09-01] MEDS: MIRALAX *UNIT DOSE* 17GM PACKET PO SCH ×2 (09:30→20:48)
[2023-09-01 14:00] VITALS: BP 132/72; TEMP 97.7; O2SAT 96
[2023-09-01 14:16] LABS: BLOOD UREA NITROGEN 12 MG/DL (7-21); CARBON DIOXIDE LEVEL 24 MEQ/L (22-30); CHLORIDE LEVEL 103 MEQ/L (98-107); CREATININE FOR GFR 0.5 MG/DL (0.7-1.5); GLOMERULAR FILTRATION RATE > 60.0 (>45); GLUCOSE, FASTING 113 MG/DL; SODIUM LEVEL 139 MEQ/L (134-153)
[2023-09-01 14:17] LABS: ALBUMIN 3.5 G/DL (3.9-5.0); ALKALINE PHOSPHATASE 78 U/L (35-104); ALT/SGPT < 9 U/L (1-33); AST/SGOT 11 U/L (5-40); BILIRUBIN,TOTAL < 0.7 MG/DL (0.2-1.3); CALCIUM LEVEL 9.1 MG/DL (8.8-10.2); TOTAL PROTEIN 5.7 G/DL (6.3-8.2)
[2023-09-01] MEDS ORDERED: POTASSIUM CHLORIDE 10% LIQ 20MEQ/15ML UDC PO ONE (15:55)
[2023-09-01 19:23] VITALS: BP 130/71; TEMP 98.1; O2SAT 95
[2023-09-01] MEDS: MOM 30ML SUSPENSION UDC PO SCH (20:48)
[2023-09-02] MEDS: BISACODYL 10MG SUPP PR SCH ×4 (05:29→23:45)
[2023-09-02] MEDS: ENOXAPARIN 100MG/1ML SYRINGE (J1650 PER 10MG) SC SCH ×2 (05:29→18:26)
[2023-09-02 05:34] VITALS: BP 135/71; TEMP 98.1; O2SAT 91
[2023-09-02 06:36] LABS: HEMATOCRIT 37.2 % (36.0-47.0); HEMOGLOBIN 12.3 g/dl (12.0-15.5); MEAN CORPUSCULAR HEMOGLOBIN 28.1 pg (27.0-33.0); MEAN CORPUSCULAR HGB CONC 33.1 g/dl (32.0-36.5); MEAN CORPUSCULAR VOLUME 84.9 fl (80.0-96.0); PLATELET COUNT, AUTOMATED 283 10^3/uL (150-450); RED BLOOD COUNT 4.38 10^6/uL (4.00-5.40); WHITE BLOOD COUNT 6.7 10^3/uL (4.0-10.0)
[2023-09-02 07:30] VITALS: BP 122/59; TEMP 97.9; O2SAT 93
[2023-09-02] MEDS: INSULIN LISPRO (NovoLOG) PER UNIT SC SCH ×4 (08:50→21:00)
[2023-09-02] MEDS ORDERED: BISA10SU PR (09:28)
[2023-09-02] MEDS ORDERED: MOM30SS2 PO (09:28)
[2023-09-02] MEDS ORDERED: SIME80TA16 PO (09:28)
[2023-09-02] MEDS ORDERED: MIRA1POW3 PO (09:28)
[2023-09-02] MEDS: SIMETHICONE 80MG CHEW TAB PO SCH ×2 (09:46→19:50)
[2023-09-02] MEDS: MEMANTINE 5MG TABLET (NAMENDA) PO SCH ×2 (09:46→19:51)
[2023-09-02] MEDS: ASPIRIN 81MG CHEW TABLET PO SCH (09:46)
[2023-09-02] MEDS: risperiDONE 0.5 MG TAB PO SCH ×2 (09:46→19:50)
[2023-09-02] MEDS: MIRALAX *UNIT DOSE* 17GM PACKET PO SCH ×2 (09:47→19:49)
[2023-09-02] MEDS: busPIRone 10 MG TAB PO SCH ×2 (09:47→19:55)
[2023-09-02] MEDS: MAGNESIUM OXIDE 400MG TAB (MAG-OX) PO SCH ×2 (09:47→19:50)
[2023-09-02] MEDS: ESCITALOPRAM OXALATE 10 MG TAB (LEXAPRO) PO SCH (09:47)
[2023-09-02] MEDS: LEVEMIR (INSULIN DETEMIR) 1 UNITS/0.01ML SC SCH (09:48)
[2023-09-02] MEDS: POTASSIUM CHLORIDE 10MEQ SR TABLET PO SCH ×2 (16:57→18:27)
[2023-09-02] MEDS: MOM 30ML SUSPENSION UDC PO SCH (19:49)
[2023-09-03] MEDS ORDERED: POTASSIUM CHLORIDE 10MEQ SR TABLET PO ONE ×3 (02:00→13:30)
[2023-09-03 04:28] VITALS: BP 133/69; TEMP 97.2; O2SAT 97
[2023-09-03 05:49] LABS: HEMATOCRIT 41.2 % (36.0-47.0); HEMOGLOBIN 13.5 g/dl (12.0-15.5); MEAN CORPUSCULAR HEMOGLOBIN 27.8 pg (27.0-33.0); MEAN CORPUSCULAR HGB CONC 32.8 g/dl (32.0-36.5); MEAN CORPUSCULAR VOLUME 84.9 fl (80.0-96.0); PLATELET COUNT, AUTOMATED 305 10^3/uL (150-450); RED BLOOD COUNT 4.85 10^6/uL (4.00-5.40); WHITE BLOOD COUNT 8.4 10^3/uL (4.0-10.0)
[2023-09-03] MEDS: ENOXAPARIN 100MG/1ML SYRINGE (J1650 PER 10MG) SC SCH ×2 (05:55→18:17)
[2023-09-03] MEDS: BISACODYL 10MG SUPP PR SCH ×3 (05:55→21:32)
[2023-09-03] MEDS: LEVEMIR (INSULIN DETEMIR) 1 UNITS/0.01ML SC SCH (08:07)
[2023-09-03] MEDS: INSULIN LISPRO (NovoLOG) PER UNIT SC SCH ×4 (08:07→21:00)
[2023-09-03] MEDS: ESCITALOPRAM OXALATE 10 MG TAB (LEXAPRO) PO SCH (08:08)
[2023-09-03] MEDS: MAGNESIUM OXIDE 400MG TAB (MAG-OX) PO SCH ×2 (08:08→21:31)
[2023-09-03] MEDS: SIMETHICONE 80MG CHEW TAB PO SCH ×2 (08:08→21:31)
[2023-09-03] MEDS: ASPIRIN 81MG CHEW TABLET PO SCH (08:08)
[2023-09-03] MEDS: busPIRone 10 MG TAB PO SCH ×2 (08:08→21:31)
[2023-09-03] MEDS: MEMANTINE 5MG TABLET (NAMENDA) PO SCH ×2 (08:09→21:31)
[2023-09-03] MEDS: risperiDONE 0.5 MG TAB PO SCH ×2 (08:09→21:31)
[2023-09-03] MEDS: MIRALAX *UNIT DOSE* 17GM PACKET PO SCH ×2 (09:00→14:04)
[2023-09-03 12:30] LABS: BLOOD UREA NITROGEN 28 MG/DL (7-21); CREATININE FOR GFR 0.7 MG/DL (0.7-1.5); GLOMERULAR FILTRATION RATE > 60.0 (>45); GLUCOSE, FASTING 131 MG/DL; POTASSIUM SERUM 2.9 MEQ/L (3.6-5.0); SODIUM LEVEL 140 MEQ/L (134-153)
[2023-09-03 12:32] LABS: CALCIUM LEVEL 9.8 MG/DL (8.8-10.2); CARBON DIOXIDE LEVEL 28 MEQ/L (22-30); CHLORIDE LEVEL 98 MEQ/L (98-107)
[2023-09-03 12:33] LABS: GLUCOSE, FASTING 139 MG/DL
[2023-09-03 12:34] LABS: BLOOD UREA NITROGEN 18 MG/DL (7-21); CREATININE FOR GFR 0.6 MG/DL (0.7-1.5); GLOMERULAR FILTRATION RATE > 60.0 (>45); POTASSIUM SERUM 2.7 MEQ/L (3.6-5.0); SODIUM LEVEL 142 MEQ/L (134-153)
[2023-09-03 12:35] LABS: CARBON DIOXIDE LEVEL 25 MEQ/L (22-30); CHLORIDE LEVEL 102 MEQ/L (98-107)
[2023-09-03 12:36] LABS: ALBUMIN 3.7 G/DL (3.9-5.0); ALKALINE PHOSPHATASE 84 U/L (35-104); ALT/SGPT < 9 U/L (1-33); AST/SGOT 10 U/L (5-40); BILIRUBIN,TOTAL < 0.7 MG/DL (0.2-1.3); CALCIUM LEVEL 9.1 MG/DL (8.8-10.2); TOTAL PROTEIN 6.1 G/DL (6.3-8.2)
[2023-09-03 14:09] LABS: BLOOD UREA NITROGEN 32 MG/DL (7-21); CHLORIDE LEVEL 100 MEQ/L (98-107); CREATININE FOR GFR 0.6 MG/DL (0.7-1.5); GLOMERULAR FILTRATION RATE > 60.0 (>45); GLUCOSE, FASTING 147 MG/DL; POTASSIUM SERUM 3.3 MEQ/L (3.6-5.0); SODIUM LEVEL 141 MEQ/L (134-153)
[2023-09-03 14:10] LABS: ALKALINE PHOSPHATASE 89 U/L (35-104); ALT/SGPT < 9 U/L (1-33); AST/SGOT 10 U/L (5-40); BILIRUBIN,TOTAL 0.8 MG/DL (0.2-1.3); CALCIUM LEVEL 9.9 MG/DL (8.8-10.2); CARBON DIOXIDE LEVEL 28 MEQ/L (22-30); TOTAL PROTEIN 6.9 G/DL (6.3-8.2)
[2023-09-03] MEDS ORDERED: DONEPEZIL 5 MG TAB PO SCH (21:00)
[2023-09-03] MEDS: POTASSIUM CHLORIDE 10MEQ SR TABLET PO SCH (21:31)
[2023-09-03] MEDS: MOM 30ML SUSPENSION UDC PO SCH (21:31)
[2023-09-04 05:10] VITALS: BP 138/72; TEMP 97.7; O2SAT 97
[2023-09-04] MEDS: ENOXAPARIN 100MG/1ML SYRINGE (J1650 PER 10MG) SC SCH (05:16)
[2023-09-04] MEDS: BISACODYL 10MG SUPP PR SCH (05:16)
[2023-09-04 05:49] LABS: HEMATOCRIT 39.7 % (36.0-47.0); MEAN CORPUSCULAR HGB CONC 32.7 g/dl (32.0-36.5); MEAN CORPUSCULAR VOLUME 85.6 fl (80.0-96.0); PLATELET COUNT, AUTOMATED 285 10^3/uL (150-450); RED BLOOD COUNT 4.64 10^6/uL (4.00-5.40)
[2023-09-04 06:07] LABS: BLOOD UREA NITROGEN 36 MG/DL (7-21); CARBON DIOXIDE LEVEL 22 MEQ/L (22-30); CHLORIDE LEVEL 100 MEQ/L (98-107); CREATININE FOR GFR 0.6 MG/DL (0.7-1.5); GLOMERULAR FILTRATION RATE > 60.0 (>45); GLUCOSE, FASTING 130 MG/DL; POTASSIUM SERUM 4.2 MEQ/L (3.6-5.0); SODIUM LEVEL 134 MEQ/L (134-153)
[2023-09-04 06:08] LABS: CALCIUM LEVEL 9.7 MG/DL (8.8-10.2)
[2023-09-04] MEDS: MIRALAX *UNIT DOSE* 17GM PACKET PO SCH (08:48)
[2023-09-04] MEDS: SIMETHICONE 80MG CHEW TAB PO SCH (08:49)
[2023-09-04] MEDS: busPIRone 10 MG TAB PO SCH (08:50)
[2023-09-04] MEDS: MEMANTINE 5MG TABLET (NAMENDA) PO SCH (08:50)
[2023-09-04] MEDS: ASPIRIN 81MG CHEW TABLET PO SCH (08:50)
[2023-09-04] MEDS: risperiDONE 0.5 MG TAB PO SCH (08:50)
[2023-09-04] MEDS: MAGNESIUM OXIDE 400MG TAB (MAG-OX) PO SCH (08:50)
[2023-09-04] MEDS: ESCITALOPRAM OXALATE 10 MG TAB (LEXAPRO) PO SCH (08:50)
[2023-09-04] MEDS: LEVEMIR (INSULIN DETEMIR) 1 UNITS/0.01ML SC SCH (08:51)
[2023-09-04] MEDS: POTASSIUM CHLORIDE 10MEQ SR TABLET PO SCH (08:51)
[2023-09-04] MEDS: INSULIN LISPRO (NovoLOG) PER UNIT SC SCH (08:52)
[2023-09-04 13:58] LABS: BLOOD UREA NITROGEN 32 MG/DL (7-21); CARBON DIOXIDE LEVEL 22 MEQ/L (22-30); CHLORIDE LEVEL 102 MEQ/L (98-107); CREATININE FOR GFR 0.6 MG/DL (0.7-1.5); GLOMERULAR FILTRATION RATE > 60.0 (>45); GLUCOSE, FASTING 122 MG/DL; POTASSIUM SERUM 4.4 MEQ/L (3.6-5.0); SODIUM LEVEL 136 MEQ/L (134-153)
[2023-09-04 13:59] LABS: ALKALINE PHOSPHATASE 85 U/L (35-104); ALT/SGPT < 9 U/L (1-33); AST/SGOT 9 U/L (5-40); CALCIUM LEVEL 9.3 MG/DL (8.8-10.2)
[2023-09-04 14:00] LABS: ALBUMIN 3.9 G/DL (3.9-5.0); TOTAL PROTEIN 6.3 G/DL (6.3-8.2)
== END 2023-09-04 12:25 | DRG 392 ==
LOC: M ED 10:35 → EDBD 10:35 → M ED INP 15:38 → M MSPAV 20:18
PROVIDERS: ADMIT Internal Medicine; ATTEND Internal Medicine
DX: K59.09 Other constipation (principal); G10 Huntington's disease; E87.1 Hypo-osmolality and hyponatremia; K59.31 Toxic megacolon; E11.65 Type 2 diabetes mellitus with hyperglycemia; F03.90 Unspecified dementia, unspecified severity, without behavioral disturbance, psychotic disturbance, mood disturbance, and anxiety; E83.42 Hypomagnesemia; F41.9 Anxiety disorder, unspecified; F32.A Depression, unspecified; E87.8 Other disorders of electrolyte and fluid balance, not elsewhere classified; E87.6 Hypokalemia; K31.89 Other diseases of stomach and duodenum; Z74.1 Need for assistance with personal care; Z74.09 Other reduced mobility; Z86.711 Personal history of pulmonary embolism; Z98.62 Peripheral vascular angioplasty status; Z79.01 Long term (current) use of anticoagulants; Z79.82 Long term (current) use of aspirin; Z79.899 Other long term (current) drug therapy; Z88.8 Allergy status to other drugs, medicaments and biological substances

== ENCOUNTER → 2023-11-01 | Outpatient (REF) | payer MEDICARE, MEDICAID ==
[~2023-11-01] MED LIST changes: +ASPI81CH33 PO; +BISA10SU PR; +GLUC1LIQ7 PO; +MOM30SS2 PO; +[UNRECOGNIZED DRUG - CODE] IM
[2023-11-01 07:30] LABS: HEMATOCRIT 36.1 % (36.0-47.0); HEMOGLOBIN 11.2 g/dl (12.0-15.5); MEAN CORPUSCULAR HEMOGLOBIN 27.5 pg (27.0-33.0); MEAN CORPUSCULAR VOLUME 88.7 fl (80.0-96.0); PLATELET COUNT, AUTOMATED 231 10^3/uL (150-450); RED BLOOD COUNT 4.07 10^6/uL (4.00-5.40); WHITE BLOOD COUNT 4.5 10^3/uL (4.0-10.0)
[2023-11-01 07:46] LABS: HEMOGLOBIN A1c 5.6 % (4.0-6.0)
[2023-11-01 08:01] LABS: ALBUMIN 2.8 G/DL (3.2-5.2); ALKALINE PHOSPHATASE 69 U/L (46-116); ALT/SGPT < 9 U/L (7.0-40); AST/SGOT 9 U/L (<34); BILIRUBIN,TOTAL 0.5 MG/DL (0.3-1.2); BLOOD UREA NITROGEN 17 MG/DL (9-23); CALCIUM LEVEL 8.7 MG/DL (8.3-10.6); CARBON DIOXIDE LEVEL 27 MMOL/L (20-31); CHLORIDE LEVEL 107 MMOL/L (98-107); CREATININE FOR GFR 0.57 MG/DL (0.55-1.30); GLOMERULAR FILTRATION RATE > 60.0 (>45); GLUCOSE, FASTING 94 MG/DL (74-106); POTASSIUM SERUM 3.3 MMOL/L (3.5-5.1); SODIUM LEVEL 140 MMOL/L (136-145); TOTAL PROTEIN 5.4 G/DL (5.7-8.2)
== END ==
LOC: SKLAB4 12:00
PROVIDERS: ATTEND Nurse Practitioner Adult Health
DX: E11.9 Type 2 diabetes mellitus without complications (principal)

== ENCOUNTER → 2023-11-25 | Outpatient (REF) | payer MEDICARE, MEDICAID ==
[2023-11-25 18:55] LABS: APPEARANCE, URINE CLOUDY (CLEAR); BACTERIA, URINE AUTO 3+ (NEGATIVE); BILIRUBIN, URINE AUTO NEGATIVE (NEGATIVE); BLOOD, URINE BLOOD 2+ (NEGATIVE); COLOR, URINE AMBER (YELLOW); GLUCOSE, URINE (UA) AUTO NEGATIVE (NEGATIVE); KETONE, URINE AUTO NEGATIVE (NEGATIVE); LEUKOCYTE ESTERASE, URINE AUTO 3+ (NEGATIVE); MUCUS, URINE LARGE (NEGATIVE); NITRITE, URINE AUTO NEGATIVE (NEGATIVE); PROTEIN, URINE AUTO 1+ mg/dL (NEGATIVE); RBC, URINE AUTO 5 /HPF (0-3); SPECIFIC GRAVITY URINE AUTO 1.015 (1.002-1.035); SQUAMOUS EPITHELIAL CELL UR AU 0 /HPF (0-6); UROBILINOGEN, URINE AUTO 0.2 mg/dL (0.0-2.0); WBC, URINE AUTO 101 /HPF (0-3)
[2023-11-25 19:09] LABS: HEMATOCRIT 36.1 % (36.0-47.0); HEMOGLOBIN 11.8 g/dl (12.0-15.5); MEAN CORPUSCULAR HEMOGLOBIN 28.1 pg (27.0-33.0); MEAN CORPUSCULAR HGB CONC 32.7 g/dl (32.0-36.5); PLATELET COUNT, AUTOMATED 228 10^3/uL (150-450); WHITE BLOOD COUNT 23.6 10^3/uL (4.0-10.0)
[2023-11-25 19:30] LABS: ALBUMIN 2.8 G/DL (3.2-5.2); ALKALINE PHOSPHATASE 74 U/L (46-116); ALT/SGPT 10 U/L (7.0-40); AST/SGOT 11 U/L (<34); BILIRUBIN,TOTAL 0.8 MG/DL (0.3-1.2); BLOOD UREA NITROGEN 14 MG/DL (9-23); CALCIUM LEVEL 8.4 MG/DL (8.3-10.6); CARBON DIOXIDE LEVEL 27 MMOL/L (20-31); CHLORIDE LEVEL 104 MMOL/L (98-107); CREATININE FOR GFR 0.62 MG/DL (0.55-1.30); GLOMERULAR FILTRATION RATE > 60.0 (>45); GLUCOSE, FASTING 186 MG/DL (74-106); POTASSIUM SERUM 3.2 MMOL/L (3.5-5.1); SODIUM LEVEL 139 MMOL/L (136-145); TOTAL PROTEIN 5.6 G/DL (5.7-8.2)
== END ==
LOC: SKLAB4 16:33
PROVIDERS: ATTEND Family Medicine
DX: R50.9 Fever, unspecified (principal); R06.02 Shortness of breath

== ENCOUNTER → 2023-11-27 | Outpatient (REF) | payer MEDICARE, MEDICAID ==
[2023-11-27 09:23] LABS: HEMATOCRIT 36.6 % (36.0-47.0); HEMOGLOBIN 11.6 g/dl (12.0-15.5); MEAN CORPUSCULAR HEMOGLOBIN 27.4 pg (27.0-33.0); MEAN CORPUSCULAR HGB CONC 31.7 g/dl (32.0-36.5); MEAN CORPUSCULAR VOLUME 86.5 fl (80.0-96.0); PLATELET COUNT, AUTOMATED 211 10^3/uL (150-450); RED BLOOD COUNT 4.23 10^6/uL (4.00-5.40); WHITE BLOOD COUNT 9.6 10^3/uL (4.0-10.0)
[2023-11-27 09:27] LABS: BLOOD UREA NITROGEN 14 MG/DL (9-23); CALCIUM LEVEL 8.5 MG/DL (8.3-10.6); CARBON DIOXIDE LEVEL 27 MMOL/L (20-31); CHLORIDE LEVEL 103 MMOL/L (98-107); CREATININE FOR GFR 0.56 MG/DL (0.55-1.30); GLOMERULAR FILTRATION RATE > 60.0 (>45); GLUCOSE, FASTING 129 MG/DL (74-106); SODIUM LEVEL 138 MMOL/L (136-145)
== END ==
LOC: SKLAB4 07:44
PROVIDERS: ATTEND Family Medicine
DX: D72.829 Elevated white blood cell count, unspecified (principal)

== ENCOUNTER → 2023-12-05 | Outpatient (REF) | payer MEDICARE, MEDICAID | LOC: SKLAB4 11-27 07:52 | PROVIDERS: ATTEND Nurse Practitioner Adult Health | DX: R14.0 Abdominal distension (gaseous) (principal); Z53.8 Procedure and treatment not carried out for other reasons ==

== ENCOUNTER → 2023-12-05 | Outpatient (REF) | payer MEDICARE, MEDICAID ==
[2023-11-27 14:49] LABS: HEMATOCRIT 37.8 % (36.0-47.0); HEMOGLOBIN 12.1 g/dl (12.0-15.5); MEAN CORPUSCULAR HEMOGLOBIN 27.3 pg (27.0-33.0); MEAN CORPUSCULAR VOLUME 85.3 fl (80.0-96.0); PLATELET COUNT, AUTOMATED 252 10^3/uL (150-450); RED BLOOD COUNT 4.43 10^6/uL (4.00-5.40); WHITE BLOOD COUNT 9.8 10^3/uL (4.0-10.0)
[2023-11-27 15:10] LABS: BLOOD UREA NITROGEN 12 MG/DL (9-23); CALCIUM LEVEL 8.7 MG/DL (8.3-10.6); CARBON DIOXIDE LEVEL 27 MMOL/L (20-31); CHLORIDE LEVEL 104 MMOL/L (98-107); CREATININE FOR GFR 0.58 MG/DL (0.55-1.30); GLOMERULAR FILTRATION RATE > 60.0 (>45); GLUCOSE, FASTING 174 MG/DL (74-106); POTASSIUM SERUM 3.5 MMOL/L (3.5-5.1); SODIUM LEVEL 138 MMOL/L (136-145)
== END ==
LOC: SKLAB4 07:56
PROVIDERS: ATTEND Nurse Practitioner Adult Health
DX: N39.0 Urinary tract infection, site not specified (principal)

== ENCOUNTER 2023-12-13 08:19 | Inpatient (IN) | payer MEDICARE, MEDICAID ==
[~2023-12-13] VITALS: Ht 172.7 cm; Wt 100.0 kg
[2023-12-13] MEDS: MIRALAX *UNIT DOSE* 17GM PACKET PO SCH ×2 (09:00→21:00)
[2023-12-13] MEDS: MEMANTINE 5MG TABLET (NAMENDA) PO SCH ×2 (09:00→21:09)
[2023-12-13 09:19] LABS: BASO % 0.2 % (0.0-1.0); HEMATOCRIT 38.8 % (36.0-47.0); HEMOGLOBIN 12.5 g/dl (12.0-15.5); LYMPH # 0.2 10^3/uL (1.5-5.0); LYMPH % 1.2 % (24.0-44.0); MEAN CORPUSCULAR HEMOGLOBIN 28.1 pg (27.0-33.0); MEAN CORPUSCULAR HGB CONC 32.2 g/dl (32.0-36.5); MEAN CORPUSCULAR VOLUME 87.2 fl (80.0-96.0); MONO # 0.8 10^3/uL (0.0-0.8); MONO % 4.8 % (2.0-8.0); NEUTROPHILS # 14.8 10^3/uL (1.5-8.5); NEUTROPHILS % 93.4 % (36.0-66.0); PLATELET COUNT, AUTOMATED 270 10^3/uL (150-450); RED BLOOD COUNT 4.45 10^6/uL (4.00-5.40); WHITE BLOOD COUNT 15.9 10^3/uL (4.0-10.0)
[2023-12-13] MEDS ORDERED: ACETAMINOPHEN TAB 650MG DOSE (2X325MG) PO ONE (09:20)
[2023-12-13 09:22] LABS: ETHYL ALCOHOL (ETHANOL) < 0.003 % (0.000-0.010)
[2023-12-13 09:23] LABS: CPK CREATINE PHOSPHOKINASE 30 U/L (34-145)
[2023-12-13 09:24] LABS: ALBUMIN 3.4 G/DL (3.2-5.2); ALKALINE PHOSPHATASE 88 U/L (46-116); ALT/SGPT 12 U/L (7.0-40); AST/SGOT 9 U/L (<34); BILIRUBIN,DIRECT 0.3 MG/DL (<0.4); BILIRUBIN,TOTAL 0.8 MG/DL (0.3-1.2); BLOOD UREA NITROGEN 14 MG/DL (9-23); CALCIUM LEVEL 9.1 MG/DL (8.3-10.6); CARBON DIOXIDE LEVEL 27 MMOL/L (20-31); CHLORIDE LEVEL 103 MMOL/L (98-107); CK-MB VALUE MASS < 1.0 NG/ML (<3.6); GLOMERULAR FILTRATION RATE > 60.0 (>45); GLUCOSE, FASTING 254 MG/DL (74-106); MB/CK RELATIVE INDEX 3.33 (< OR =4); POTASSIUM SERUM 3.3 MMOL/L (3.5-5.1); SODIUM LEVEL 137 MMOL/L (136-145); TOTAL PROTEIN 6.7 G/DL (5.7-8.2)
[2023-12-13] MEDS ORDERED: POTASSIUM CHLORIDE 10MEQ SR TABLET PO ONE (09:25)
[2023-12-13 09:26] LABS: THYROID STIMULATING HORMONE 0.892 uIU/ML (0.55-4.78)
[2023-12-13] MEDS ORDERED: cefTRIAXone SOD 2 GM in D5W MINI-BAG PLUS 50 ML IV ONE (09:30)
[2023-12-13] MEDS ORDERED: MED REC IN PROGRESS XX SCH (09:40)
[2023-12-13] MEDS ORDERED: NS 3,000 ML in IV 1 EA IV ONE (11:05)
[2023-12-13] MEDS ORDERED: GLUCAGON INJ 1MG VIAL SC PRN (11:05)
[2023-12-13] MEDS ORDERED: DEXTROSE 50% 50ML SYRINGE IV PRN (11:05)
[2023-12-13] MEDS ORDERED: GLUCOSE 4GM CHEW TABLET PO PRN (11:05)
[2023-12-13] MEDS ORDERED: LEXA1TAB2 PO (11:55)
[2023-12-13] MEDS ORDERED: MEMA1TAB3 PO (11:57)
[2023-12-13] MEDS ORDERED: NYSTATIN 500,000U/5ML SUSP UDC PO SCH (12:00)
[2023-12-13] MEDS: INSULIN LISPRO (NovoLOG) PER UNIT SC SCH ×3 (12:00→21:00)
[2023-12-13] MEDS ORDERED: BISACODYL 10MG SUPP PR SCH (12:00)
[2023-12-13] MEDS ORDERED: BISA10SU27 PR (12:00)
[2023-12-13] MEDS ORDERED: FLEEENE12 PR (12:06)
[2023-12-13] MEDS ORDERED: HOME MED LIST COMPLETE! XX SCH (12:20)
[2023-12-13 12:33] LABS: MAGNESIUM LEVEL 1.7 MG/DL (1.8-2.4)
[2023-12-13] MEDS ORDERED: BISACODYL 10MG SUPP PR PRN (12:35)
[2023-12-13] MEDS ORDERED: FLEET ENEMA PR PRN (12:35)
[2023-12-13 12:46] LABS: PROCALCITONIN 0.94 ng/ml
[2023-12-13] MEDS: APIXABAN 5 MG TAB (ELIQUIS) PO SCH ×2 (14:01→21:09)
[2023-12-13] MEDS: busPIRone 10 MG TAB PO SCH ×2 (14:01→21:08)
[2023-12-13] MEDS: risperiDONE 0.5 MG TAB PO SCH ×2 (14:01→21:09)
[2023-12-13] MEDS: ESCITALOPRAM OXALATE 10 MG TAB (LEXAPRO) PO SCH (14:01)
[2023-12-13] MEDS: MAGNESIUM OXIDE 400MG TAB (MAG-OX) PO SCH ×2 (14:01→21:08)
[2023-12-13] MEDS: SIMETHICONE 80MG CHEW TAB PO SCH ×2 (14:02→21:09)
[2023-12-13] MEDS: ASPIRIN 81MG CHEW TABLET PO SCH (14:02)
[2023-12-13 16:10] VITALS: BP 110/52; TEMP 97.4; O2SAT 95
[2023-12-13] MEDS: BISACODYL 10MG SUPP PR SCH (17:19)
[2023-12-13] MEDS: NYSTATIN 500,000U/5ML SUSP UDC SS SCH (17:20)
[2023-12-13] MEDS ORDERED: MAG SULF 1GM/100ML (MAG RUN) 1 GM in IV 1 EA IV SCH (18:00)
[2023-12-13 18:29] VITALS: BP 134/50; TEMP 97.8; O2SAT 96
[2023-12-13] MEDS ORDERED: PILL CUTTER 1 EACH XX ONE (21:11)
[2023-12-13] MEDS: MOM 30ML SUSPENSION UDC PO SCH (21:15)
[2023-12-14] VITALS: BP 126/58; TEMP 97.4; O2SAT 96
[2023-12-14] MEDS: NYSTATIN 500,000U/5ML SUSP UDC SS SCH ×4 (01:21→17:18)
[2023-12-14 03:28] VITALS: BP 96/61; TEMP 97; O2SAT 98
[2023-12-14 06:41] LABS: BASO # 0.1 10^3/uL (0.0-0.2); BASO % 0.3 % (0.0-1.0); EOS # 0.1 10^3/uL (0.0-0.5); EOS % 0.5 % (0.0-3.0); HEMATOCRIT 34.1 % (36.0-47.0); HEMOGLOBIN 10.9 g/dl (12.0-15.5); LYMPH # 1.6 10^3/uL (1.5-5.0); LYMPH % 8.7 % (24.0-44.0); MEAN CORPUSCULAR HEMOGLOBIN 28.1 pg (27.0-33.0); MEAN CORPUSCULAR VOLUME 87.9 fl (80.0-96.0); MONO % 5.2 % (2.0-8.0); NEUTROPHILS # 15.5 10^3/uL (1.5-8.5); NEUTROPHILS % 84.4 % (36.0-66.0); PLATELET COUNT, AUTOMATED 207 10^3/uL (150-450); RED BLOOD COUNT 3.88 10^6/uL (4.00-5.40); WHITE BLOOD COUNT 18.4 10^3/uL (4.0-10.0)
[2023-12-14 07:16] LABS: BLOOD UREA NITROGEN 18 MG/DL (9-23); CALCIUM LEVEL 8.9 MG/DL (8.3-10.6); CARBON DIOXIDE LEVEL 27 MMOL/L (20-31); CHLORIDE LEVEL 104 MMOL/L (98-107); CREATININE FOR GFR 0.61 MG/DL (0.55-1.30); GLOMERULAR FILTRATION RATE > 60.0 (>45); GLUCOSE, FASTING 140 MG/DL (74-106); MAGNESIUM LEVEL 1.7 MG/DL (1.8-2.4); POTASSIUM SERUM 4.1 MMOL/L (3.5-5.1); SODIUM LEVEL 136 MMOL/L (136-145)
[2023-12-14 07:30] VITALS: BP 110/50; TEMP 96.6; O2SAT 98
[2023-12-14] MEDS: INSULIN LISPRO (NovoLOG) PER UNIT SC SCH ×4 (08:19→20:43)
[2023-12-14] MEDS ORDERED: cefTRIAXone SOD 1 GM in D5W MINI-BAG PLUS 50 ML IV SCH (09:00)
[2023-12-14] MEDS: APIXABAN 5 MG TAB (ELIQUIS) PO SCH ×2 (09:52→21:05)
[2023-12-14] MEDS: ESCITALOPRAM OXALATE 10 MG TAB (LEXAPRO) PO SCH (09:52)
[2023-12-14] MEDS: ASPIRIN 81MG CHEW TABLET PO SCH (09:52)
[2023-12-14] MEDS: busPIRone 10 MG TAB PO SCH ×2 (09:52→21:04)
[2023-12-14] MEDS: MEMANTINE 5MG TABLET (NAMENDA) PO SCH ×2 (09:52→21:05)
[2023-12-14] MEDS: MAGNESIUM OXIDE 400MG TAB (MAG-OX) PO SCH ×2 (09:52→21:04)
[2023-12-14] MEDS: SIMETHICONE 80MG CHEW TAB PO SCH ×2 (09:52→21:04)
[2023-12-14] MEDS: risperiDONE 0.5 MG TAB PO SCH ×2 (09:53→21:05)
[2023-12-14] MEDS: BISACODYL 10MG SUPP PR SCH (09:53)
[2023-12-14] MEDS: MIRALAX *UNIT DOSE* 17GM PACKET PO SCH ×2 (09:54→21:03)
[2023-12-14] MEDS: MAG SULF 1GM/100ML (MAG RUN) 1 GM in IV 1 EA IV SCH ×2 (10:45→11:40)
[2023-12-14 11:36] VITALS: BP 110/70; TEMP 96.2; O2SAT 98
[2023-12-14] MEDS ORDERED: MAG SULF 1GM/100ML (MAG RUN) 1 GM in IV 1 EA IV ONE (13:00)
[2023-12-14 15:35] VITALS: BP 108/55; TEMP 97; O2SAT 97
[2023-12-14 20:28] VITALS: BP 140/56; TEMP 97.1; O2SAT 97
[2023-12-14] MEDS: MOM 30ML SUSPENSION UDC PO SCH (21:03)
[2023-12-15] VITALS: BP 135/56; TEMP 97.2; O2SAT 16; O2SAT 98
[2023-12-15] MEDS: NYSTATIN 500,000U/5ML SUSP UDC SS SCH ×2 (00:21→05:47)
[2023-12-15 04:00] VITALS: BP 155/67; TEMP 97; O2SAT 98
[2023-12-15 06:24] LABS: BASO % 0.4 % (0.0-1.0); EOS # 0.1 10^3/uL (0.0-0.5); EOS % 1.5 % (0.0-3.0); HEMATOCRIT 35.3 % (36.0-47.0); HEMOGLOBIN 11.3 g/dl (12.0-15.5); LYMPH # 1.4 10^3/uL (1.5-5.0); LYMPH % 14.5 % (24.0-44.0); MEAN CORPUSCULAR HEMOGLOBIN 27.8 pg (27.0-33.0); MEAN CORPUSCULAR VOLUME 86.7 fl (80.0-96.0); MONO # 0.6 10^3/uL (0.0-0.8); MONO % 6.1 % (2.0-8.0); NEUTROPHILS # 7.2 10^3/uL (1.5-8.5); PLATELET COUNT, AUTOMATED 217 10^3/uL (150-450); RED BLOOD COUNT 4.07 10^6/uL (4.00-5.40); WHITE BLOOD COUNT 9.4 10^3/uL (4.0-10.0)
[2023-12-15 06:48] LABS: BLOOD UREA NITROGEN 17 MG/DL (9-23); CALCIUM LEVEL 9.2 MG/DL (8.3-10.6); CARBON DIOXIDE LEVEL 27 MMOL/L (20-31); CHLORIDE LEVEL 103 MMOL/L (98-107); CREATININE FOR GFR 0.62 MG/DL (0.55-1.30); GLOMERULAR FILTRATION RATE > 60.0 (>45); GLUCOSE, FASTING 141 MG/DL (74-106); POTASSIUM SERUM 4.2 MMOL/L (3.5-5.1); SODIUM LEVEL 137 MMOL/L (136-145)
[2023-12-15 06:54] LABS: PROCALCITONIN 9.87 ng/ml
[2023-12-15 07:29] VITALS: BP 137/60; TEMP 97.4; O2SAT 97
[2023-12-15] MEDS ORDERED: AMPICILLIN SOD/SULBACTAM SOD 3 GM in D5W MINI-BAG PLUS 100 ML IV SCH (08:00)
[2023-12-15] MEDS: ESCITALOPRAM OXALATE 10 MG TAB (LEXAPRO) PO SCH (09:19)
[2023-12-15] MEDS: APIXABAN 5 MG TAB (ELIQUIS) PO SCH (09:19)
[2023-12-15] MEDS: MAGNESIUM OXIDE 400MG TAB (MAG-OX) PO SCH (09:19)
[2023-12-15] MEDS: ASPIRIN 81MG CHEW TABLET PO SCH (09:19)
[2023-12-15] MEDS: MEMANTINE 5MG TABLET (NAMENDA) PO SCH (09:20)
[2023-12-15] MEDS: MIRALAX *UNIT DOSE* 17GM PACKET PO SCH (09:20)
[2023-12-15] MEDS: BISACODYL 10MG SUPP PR SCH (09:20)
[2023-12-15] MEDS: risperiDONE 0.5 MG TAB PO SCH (09:20)
[2023-12-15] MEDS: SIMETHICONE 80MG CHEW TAB PO SCH (09:20)
[2023-12-15] MEDS: busPIRone 10 MG TAB PO SCH (09:20)
[2023-12-15] MEDS: INSULIN LISPRO (NovoLOG) PER UNIT SC SCH (09:27)
[2023-12-15] MEDS ORDERED: BISA10SU PR (12:37)
[2023-12-15] MEDS ORDERED: AMOX875T2 PO (12:37)
[2023-12-15] MEDS ORDERED: NYST-38 SS (12:37)
[2023-12-15] MEDS ORDERED: MAGN400T35 PO (12:37)
== END 2023-12-15 13:24 | DRG 871 ==
LOC: M ED 08:19 → EDBD 08:19 → M ED INP 11:12 → ENRESERV 15:26 → M PCU 16:05
PROVIDERS: ADMIT Internal Medicine; ATTEND Internal Medicine
DX: A41.9 Sepsis, unspecified organism (principal); G93.41 Metabolic encephalopathy; N39.0 Urinary tract infection, site not specified; G10 Huntington's disease; J98.11 Atelectasis; E11.9 Type 2 diabetes mellitus without complications; F03.90 Unspecified dementia, unspecified severity, without behavioral disturbance, psychotic disturbance, mood disturbance, and anxiety; E83.42 Hypomagnesemia; K59.09 Other constipation; F41.9 Anxiety disorder, unspecified; F32.A Depression, unspecified; B95.2 Enterococcus as the cause of diseases classified elsewhere; K59.81 Ogilvie syndrome; E87.6 Hypokalemia; Z86.711 Personal history of pulmonary embolism; Z79.01 Long term (current) use of anticoagulants; Z79.82 Long term (current) use of aspirin; Z79.4 Long term (current) use of insulin; Z79.899 Other long term (current) drug therapy; Z88.8 Allergy status to other drugs, medicaments and biological substances

== ENCOUNTER → 2023-12-22 | Outpatient (REF) | payer MEDICARE, MEDICAID ==
[2023-12-18 11:53] LABS: HEMATOCRIT 40.4 % (36.0-47.0); HEMOGLOBIN 12.8 g/dl (12.0-15.5); MEAN CORPUSCULAR HEMOGLOBIN 27.8 pg (27.0-33.0); MEAN CORPUSCULAR HGB CONC 31.7 g/dl (32.0-36.5); MEAN CORPUSCULAR VOLUME 87.6 fl (80.0-96.0); PLATELET COUNT, AUTOMATED 269 10^3/uL (150-450); RED BLOOD COUNT 4.61 10^6/uL (4.00-5.40); WHITE BLOOD COUNT 7.1 10^3/uL (4.0-10.0)
[~2023-12-22] MED LIST changes: +AMOX875T2 PO; +BISA10SU27 PR; +LEXA1TAB2 PO; +MAGN400T35 PO; +NYST-38 SS
== END ==
LOC: SKLAB4 10:21
PROVIDERS: ATTEND Nurse Practitioner
DX: Z09 Encounter for follow-up examination after completed treatment for conditions other than malignant neoplasm (principal); Z87.440 Personal history of urinary (tract) infections

== ENCOUNTER 2023-12-30 17:17 | Inpatient (IN) | payer MEDICARE, MEDICAID ==
[~2023-12-30] VITALS: Ht 170.2 cm; Wt 114.1 kg
[~2023-12-30 17:17] MED LIST changes: -AMOX875T PO; -BISA10SU4 PR; -NAME5TAB13 PO; -NYST-38 PO
[2023-12-30] MEDS: NS 500 ML IV ONE (18:01)
[2023-12-30] MEDS: LIDOCAINE 2% 5ML JELLY UROJET TOP ONE (18:02)
[2023-12-30 18:10] LABS: BASO % 0.2 % (0.0-1.0); HEMATOCRIT 37.6 % (36.0-47.0); HEMOGLOBIN 12.3 g/dl (12.0-15.5); LYMPH # 0.4 10^3/uL (1.5-5.0); LYMPH % 2.3 % (24.0-44.0); MEAN CORPUSCULAR HEMOGLOBIN 27.8 pg (27.0-33.0); MEAN CORPUSCULAR HGB CONC 32.7 g/dl (32.0-36.5); MEAN CORPUSCULAR VOLUME 84.9 fl (80.0-96.0); MONO % 5.2 % (2.0-8.0); NEUTROPHILS # 16.6 10^3/uL (1.5-8.5); NEUTROPHILS % 91.6 % (36.0-66.0); PLATELET COUNT, AUTOMATED 260 10^3/uL (150-450); RED BLOOD COUNT 4.43 10^6/uL (4.00-5.40); WHITE BLOOD COUNT 18.1 10^3/uL (4.0-10.0)
[2023-12-30] MEDS: PIPERACILLIN/TAZOBACTAM SOD 4.5 GM in D5W MINI-BAG PLUS 50 ML IV ONE (18:22)
[2023-12-30] MEDS: NS 1,000 ML IV ONE (18:22)
[2023-12-30 18:30] LABS: LIPASE 26 U/L (12-53)
[2023-12-30 18:31] LABS: CK-MB VALUE MASS < 1.0 NG/ML (<3.6)
[2023-12-30 18:32] LABS: ALBUMIN 3.2 G/DL (3.2-5.2); ALKALINE PHOSPHATASE 81 U/L (46-116); ALT/SGPT < 9 U/L (7.0-40); AST/SGOT 8 U/L (<34); BILIRUBIN,DIRECT 0.3 MG/DL (<0.4); BILIRUBIN,TOTAL 0.7 MG/DL (0.3-1.2); BLOOD UREA NITROGEN 15 MG/DL (9-23); CALCIUM LEVEL 8.7 MG/DL (8.3-10.6); CARBON DIOXIDE LEVEL 27 MMOL/L (20-31); CHLORIDE LEVEL 104 MMOL/L (98-107); CPK CREATINE PHOSPHOKINASE 38 U/L (34-145); CREATININE FOR GFR 0.61 MG/DL (0.55-1.30); GLOMERULAR FILTRATION RATE > 60.0 (>45); GLUCOSE, FASTING 199 MG/DL (74-106); MAGNESIUM LEVEL 1.7 MG/DL (1.8-2.4); MB/CK RELATIVE INDEX 2.63 (< OR =4); POTASSIUM SERUM 3.5 MMOL/L (3.5-5.1); SODIUM LEVEL 137 MMOL/L (136-145); TOTAL PROTEIN 6.3 G/DL (5.7-8.2)
[2023-12-30 18:33] LABS: ABG BASE EXCESS -0.5 (-2.0-2.0); ABG HCO3 22.5 MMOL/L (22.0-26.0); ABG O2 SATURATION 95.9 % (95.0-99.0); ABG PARTIAL PRESSURE CO2 32.2 mmHg (35.0-45.0); ABG PARTIAL PRESSURE O2 77.6 mmHg (75.0-100.0); ABG TOTAL CO2 23.5 MMOL/L (23.0-31.0); ABG pH (ARTERIAL) 7.463 UNITS (7.350-7.450)
[2023-12-30 18:34] LABS: THYROID STIMULATING HORMONE 1.075 uIU/ML (0.55-4.78)
[2023-12-30 19:19] LABS: INR 1.26; PROTHROMBIN TIME 15.4 SECONDS (12.5-14.5)
[2023-12-30 19:20] LABS: PARTIAL THROMBOPLASTIN TIME 36.4 SECONDS (24.8-34.2)
[2023-12-30] MEDS ORDERED: ISOVUE-370 76% 100ML VIAL As Ordered ONE (19:34)
[2023-12-30 20:03] LABS: CK-MB VALUE MASS < 1.0 NG/ML (<3.6); CPK CREATINE PHOSPHOKINASE 46 U/L (34-145); MB/CK RELATIVE INDEX 2.17 (< OR =4)
[2023-12-30] MEDS ORDERED: ACETAMINOPHEN TAB 650MG DOSE (2X325MG) PO PRN (22:00)
[2023-12-30] MEDS ORDERED: MAALOX 30 ML SUSP *UDC PO PRN (22:00)
[2023-12-30] MEDS ORDERED: MOM 30ML SUSPENSION UDC PO PRN (22:00)
[2023-12-30] MEDS ORDERED: GLUCOSE 4GM CHEW TABLET PO PRN (22:10)
[2023-12-30] MEDS ORDERED: GLUCAGON INJ 1MG VIAL SC PRN (22:10)
[2023-12-30] MEDS ORDERED: DEXTROSE 50% 50ML SYRINGE IV PRN (22:10)
[2023-12-30] MEDS: MAG SULF 1GM/100ML (MAG RUN) 1 GM in IV 1 EA IV ONE (22:34)
[2023-12-30] MEDS: LR 1,000 ML IV SCH (22:36)
[2023-12-30 23:27] VITALS: BP 109/42; TEMP 97.4; O2SAT 97
[2023-12-31] VITALS (8 sets, daily range): BP systolic 114–122; BP diastolic 46–85; TEMP 97.2–98.2; O2SAT 95–99
[2023-12-31] MEDS: CEFEPIME HCL 2 GM in D5W 50 ML IV SCH (00:14)
[2023-12-31] MEDS ORDERED: NAME5TAB13 PO (00:55)
[2023-12-31] MEDS ORDERED: BISA10SU4 PR (00:55)
[2023-12-31] MEDS ORDERED: MAGN400T35 PO (00:55)
[2023-12-31] MEDS ORDERED: NYST-38 PO (00:55)
[2023-12-31] MEDS ORDERED: MIRA3350 PO (00:55)
[2023-12-31] MEDS ORDERED: HOME MED LIST COMPLETE! XX SCH (00:55)
[2023-12-31] MEDS: APIXABAN 5 MG TAB (ELIQUIS) PO SCH (01:49)
[2023-12-31 04:57] LABS: HEMATOCRIT 33.6 % (36.0-47.0); HEMOGLOBIN 10.8 g/dl (12.0-15.5); MEAN CORPUSCULAR HEMOGLOBIN 27.8 pg (27.0-33.0); MEAN CORPUSCULAR HGB CONC 32.1 g/dl (32.0-36.5); MEAN CORPUSCULAR VOLUME 86.4 fl (80.0-96.0); PLATELET COUNT, AUTOMATED 200 10^3/uL (150-450); RED BLOOD COUNT 3.89 10^6/uL (4.00-5.40); WHITE BLOOD COUNT 15.2 10^3/uL (4.0-10.0)
[2023-12-31 05:24] LABS: PROCALCITONIN 1.49 ng/ml
[2023-12-31 05:31] LABS: ALBUMIN 2.8 G/DL (3.2-5.2); ALKALINE PHOSPHATASE 66 U/L (46-116); ALT/SGPT < 9 U/L (7.0-40); AST/SGOT < 8 U/L (<34); BILIRUBIN,TOTAL 0.8 MG/DL (0.3-1.2); BLOOD UREA NITROGEN 14 MG/DL (9-23); CALCIUM LEVEL 8.8 MG/DL (8.3-10.6); CARBON DIOXIDE LEVEL 27 MMOL/L (20-31); CHLORIDE LEVEL 106 MMOL/L (98-107); CREATININE FOR GFR 0.61 MG/DL (0.55-1.30); GLOMERULAR FILTRATION RATE > 60.0 (>45); GLUCOSE, FASTING 128 MG/DL (74-106); MAGNESIUM LEVEL 1.9 MG/DL (1.8-2.4); SODIUM LEVEL 138 MMOL/L (136-145); TOTAL PROTEIN 5.7 G/DL (5.7-8.2)
[2023-12-31 06:23] LABS: ABG BASE EXCESS 0.5 (-2.0-2.0); ABG HCO3 22.6 MMOL/L (22.0-26.0); ABG O2 SATURATION 98.8 % (95.0-99.0); ABG PARTIAL PRESSURE CO2 28.7 mmHg (35.0-45.0); ABG PARTIAL PRESSURE O2 129.2 mmHg (75.0-100.0); ABG TOTAL CO2 23.5 MMOL/L (23.0-31.0); ABG pH (ARTERIAL) 7.515 UNITS (7.350-7.450)
[2023-12-31] MEDS ORDERED: VANCOMYCIN HCL 1,000 MG, VIAL MATE ADAPTER 1 EACH in D5W 250 ML IV SCH (07:40)
[2023-12-31] MEDS: DOCUSATE SODIUM 100MG CAPSULE PO SCH (08:39)
[2023-12-31] MEDS: PIPERACILLIN/TAZOBACTAM SOD 4.5 GM in D5W MINI-BAG PLUS 50 ML IV SCH (08:39)
[2023-12-31] MEDS: VANCOMYCIN HCL 1,000 MG, VIAL MATE ADAPTER 1 EACH in D5W 250 ML IV ONE (10:05)
[2023-12-31] MEDS: VANCOMYCIN HCL 1,000 MG, VIAL MATE ADAPTER 1 EACH in D5W 250 ML IV SCH (15:48)
[2023-12-31] MEDS: INSULIN LISPRO (NovoLOG) PER UNIT SC SCH ×3 (17:26→20:06)
[2024-01-01 03:08] VITALS: BP 127/64; TEMP 97.1; O2SAT 96
[2024-01-01 07:25] LABS: BASO % 0.5 % (0.0-1.0); EOS # 0.1 10^3/uL (0.0-0.5); EOS % 1.7 % (0.0-3.0); HEMATOCRIT 33.4 % (36.0-47.0); HEMOGLOBIN 10.8 g/dl (12.0-15.5); LYMPH % 15.6 % (24.0-44.0); MEAN CORPUSCULAR HEMOGLOBIN 28.1 pg (27.0-33.0); MEAN CORPUSCULAR HGB CONC 32.3 g/dl (32.0-36.5); MONO # 0.6 10^3/uL (0.0-0.8); MONO % 9.1 % (2.0-8.0); NEUTROPHILS # 4.6 10^3/uL (1.5-8.5); NEUTROPHILS % 72.8 % (36.0-66.0); PLATELET COUNT, AUTOMATED 194 10^3/uL (150-450); RED BLOOD COUNT 3.84 10^6/uL (4.00-5.40); WHITE BLOOD COUNT 6.4 10^3/uL (4.0-10.0)
[2024-01-01 07:31] VITALS: BP 134/61; TEMP 97.2; O2SAT 98
[2024-01-01 07:49] LABS: VANCOMYCIN LEVEL TROUGH 15.7 UG/ML (10.0-20.0)
[2024-01-01 07:56] LABS: BLOOD UREA NITROGEN 13 MG/DL (9-23); CALCIUM LEVEL 8.8 MG/DL (8.3-10.6); CARBON DIOXIDE LEVEL 27 MMOL/L (20-31); CHLORIDE LEVEL 103 MMOL/L (98-107); CREATININE FOR GFR 0.75 MG/DL (0.55-1.30); GLOMERULAR FILTRATION RATE > 60.0 (>45); GLUCOSE, FASTING 131 MG/DL (74-106); POTASSIUM SERUM 4.2 MMOL/L (3.5-5.1); SODIUM LEVEL 134 MMOL/L (136-145)
[2024-01-01] MEDS: VANCOMYCIN HCL 1,000 MG, VIAL MATE ADAPTER 1 EACH in D5W 250 ML IV SCH (09:44)
[2024-01-01 14:27] LABS: ERYTHROCYTE SEDIMENTATION RATE 22 mm/hr (0-30)
[2024-01-01 16:09] VITALS: BP 112/50; O2SAT 98
[2024-01-01 16:55] VITALS: TEMP 97.3
[2024-01-01 17:00] VITALS: BP 135/56; TEMP 97.3; O2SAT 98
[2024-01-01 20:09] VITALS: BP 135/64; TEMP 97.3; O2SAT 98
[2024-01-02 06:00] VITALS: BP 123/57; TEMP 97.3; O2SAT 97
[2024-01-02 06:45] LABS: BASO % 0.8 % (0.0-1.0); EOS # 0.1 10^3/uL (0.0-0.5); EOS % 2.4 % (0.0-3.0); HEMATOCRIT 32.8 % (36.0-47.0); HEMOGLOBIN 10.6 g/dl (12.0-15.5); LYMPH # 1.3 10^3/uL (1.5-5.0); LYMPH % 25.2 % (24.0-44.0); MEAN CORPUSCULAR HGB CONC 32.3 g/dl (32.0-36.5); MEAN CORPUSCULAR VOLUME 86.8 fl (80.0-96.0); MONO # 0.5 10^3/uL (0.0-0.8); MONO % 9.1 % (2.0-8.0); NEUTROPHILS # 3.2 10^3/uL (1.5-8.5); NEUTROPHILS % 62.1 % (36.0-66.0); PLATELET COUNT, AUTOMATED 216 10^3/uL (150-450); RED BLOOD COUNT 3.78 10^6/uL (4.00-5.40); WHITE BLOOD COUNT 5.1 10^3/uL (4.0-10.0)
[2024-01-02 07:05] LABS: BLOOD UREA NITROGEN 11 MG/DL (9-23); CALCIUM LEVEL 8.6 MG/DL (8.3-10.6); CARBON DIOXIDE LEVEL 25 MMOL/L (20-31); CHLORIDE LEVEL 103 MMOL/L (98-107); GLOMERULAR FILTRATION RATE > 60.0 (>45); GLUCOSE, FASTING 124 MG/DL (74-106); SODIUM LEVEL 134 MMOL/L (136-145)
[2024-01-02] MEDS: AMOXICILLIN 875 MG TAB PO SCH (10:07)
[2024-01-02] MEDS ORDERED: AMOX875T PO (10:30)
== END 2024-01-02 12:45 | DRG 871 ==
LOC: M ED 17:17 → EDBD 17:17 → M ED INP 21:59 → M PCU 23:12 → M MSPAV 01-01 16:57
PROVIDERS: ADMIT Family Medicine; ATTEND Internal Medicine Nephrology
DX: A41.9 Sepsis, unspecified organism (principal); G93.41 Metabolic encephalopathy; G10 Huntington's disease; J98.11 Atelectasis; E83.42 Hypomagnesemia; K59.81 Ogilvie syndrome; F03.90 Unspecified dementia, unspecified severity, without behavioral disturbance, psychotic disturbance, mood disturbance, and anxiety; K59.09 Other constipation; F41.9 Anxiety disorder, unspecified; B95.2 Enterococcus as the cause of diseases classified elsewhere; K76.0 Fatty (change of) liver, not elsewhere classified; R26.89 Other abnormalities of gait and mobility; N30.20 Other chronic cystitis without hematuria; E11.51 Type 2 diabetes mellitus with diabetic peripheral angiopathy without gangrene; R33.9 Retention of urine, unspecified; F32.A Depression, unspecified; Z86.711 Personal history of pulmonary embolism; Z79.01 Long term (current) use of anticoagulants; Z79.82 Long term (current) use of aspirin; Z79.899 Other long term (current) drug therapy; Z98.62 Peripheral vascular angioplasty status; Z87.440 Personal history of urinary (tract) infections; Z99.2 Dependence on renal dialysis; Z74.09 Other reduced mobility

== ENCOUNTER → 2023-12-30 | Outpatient (REF) | payer MEDICARE, MEDICAID ==
[~2023-12-30] MED LIST changes: +AMOX875T PO; +BISA10SU4 PR; -MIRA1POW3 PO; +MIRA33506 PO; +NAME5TAB13 PO; +NYST-38 PO
[2023-12-30 16:24] LABS: HEMATOCRIT 35.6 % (36.0-47.0); HEMOGLOBIN 11.5 g/dl (12.0-15.5); MEAN CORPUSCULAR HEMOGLOBIN 27.5 pg (27.0-33.0); MEAN CORPUSCULAR HGB CONC 32.3 g/dl (32.0-36.5); MEAN CORPUSCULAR VOLUME 85.2 fl (80.0-96.0); PLATELET COUNT, AUTOMATED 236 10^3/uL (150-450); RED BLOOD COUNT 4.18 10^6/uL (4.00-5.40); WHITE BLOOD COUNT 16.9 10^3/uL (4.0-10.0)
[2023-12-30 16:45] LABS: BLOOD UREA NITROGEN 14 MG/DL (9-23); CALCIUM LEVEL 8.8 MG/DL (8.3-10.6); CARBON DIOXIDE LEVEL 26 MMOL/L (20-31); CHLORIDE LEVEL 102 MMOL/L (98-107); CREATININE FOR GFR 0.58 MG/DL (0.55-1.30); GLOMERULAR FILTRATION RATE > 60.0 (>45); GLUCOSE, FASTING 200 MG/DL (74-106); POTASSIUM SERUM 3.7 MMOL/L (3.5-5.1); SODIUM LEVEL 134 MMOL/L (136-145)
== END ==
LOC: SKLAB4 15:25
PROVIDERS: ATTEND Family Medicine
DX: K59.81 Ogilvie syndrome (principal); R41.89 Other symptoms and signs involving cognitive functions and awareness

== ENCOUNTER → 2024-01-17 | Outpatient (REF) | payer MEDICARE ==
[~2024-01-17] MED LIST changes: +AMOX875T PO; +BISA10SU4 PR; +NAME5TAB13 PO; +NYST-38 PO
[2024-01-17 13:37] LABS: AMORPHOUS SEDIMENT SMALL (NEGATIVE); APPEARANCE, URINE CLOUDY (CLEAR); BACTERIA, URINE AUTO NEGATIVE (NEGATIVE); BILIRUBIN, URINE AUTO NEGATIVE (NEGATIVE); BLOOD, URINE BLOOD NEGATIVE (NEGATIVE); COLOR, URINE YELLOW (YELLOW); GLUCOSE, URINE (UA) AUTO NEGATIVE (NEGATIVE); KETONE, URINE AUTO NEGATIVE (NEGATIVE); LEUKOCYTE ESTERASE, URINE AUTO NEGATIVE (NEGATIVE); NITRITE, URINE AUTO NEGATIVE (NEGATIVE); PROTEIN, URINE AUTO NEGATIVE (NEGATIVE); RBC, URINE AUTO 0 /HPF (0-3); SQUAMOUS EPITHELIAL CELL UR AU 0 /HPF (0-6); UROBILINOGEN, URINE AUTO 0.2 mg/dL (0.0-2.0); WBC, URINE AUTO 0 /HPF (0-3)
== END ==
LOC: M SMT 12:58
PROVIDERS: ATTEND Nurse Practitioner Family
DX: N39.0 Urinary tract infection, site not specified (principal)

== ENCOUNTER → 2024-01-30 | Outpatient (CLI) | payer MEDICARE, MEDICAID | LOC: M RAD 13:46 | PROVIDERS: ATTEND Nurse Practitioner Family | DX: N39.0 Urinary tract infection, site not specified (principal) ==

== ENCOUNTER → 2024-01-31 | Outpatient (REF) | payer MEDICARE ==
[2024-01-31 12:25] LABS: BLOOD UREA NITROGEN 15 MG/DL (9-23); CALCIUM LEVEL 9.3 MG/DL (8.3-10.6); CARBON DIOXIDE LEVEL 28 MMOL/L (20-31); CHLORIDE LEVEL 102 MMOL/L (98-107); CREATININE FOR GFR 0.56 MG/DL (0.55-1.30); GLOMERULAR FILTRATION RATE > 60.0 (>45); GLUCOSE, FASTING 151 MG/DL (74-106); SODIUM LEVEL 136 MMOL/L (136-145)
== END ==
LOC: SKLAB4 12:43
PROVIDERS: ATTEND Nurse Practitioner Adult Health
DX: N18.9 Chronic kidney disease, unspecified (principal)

== ENCOUNTER → 2024-02-06 | Outpatient (REF) | payer MEDICARE ==
[2024-02-06 13:35] LABS: APPEARANCE, URINE HAZY (CLEAR); BACTERIA, URINE AUTO 3+ (NEGATIVE); BILIRUBIN, URINE AUTO NEGATIVE (NEGATIVE); BLOOD, URINE BLOOD NEGATIVE (NEGATIVE); COLOR, URINE YELLOW (YELLOW); GLUCOSE, URINE (UA) AUTO NEGATIVE (NEGATIVE); KETONE, URINE AUTO NEGATIVE (NEGATIVE); LEUKOCYTE ESTERASE, URINE AUTO 2+ (NEGATIVE); MUCUS, URINE SMALL (NEGATIVE); NITRITE, URINE AUTO NEGATIVE (NEGATIVE); PROTEIN, URINE AUTO NEGATIVE (NEGATIVE); RBC, URINE AUTO 1 /HPF (0-3); SQUAMOUS EPITHELIAL CELL UR AU 1 /HPF (0-6); UROBILINOGEN, URINE AUTO 0.2 mg/dL (0.0-2.0); WBC, URINE AUTO 25 /HPF (0-3)
== END ==
LOC: SKLAB4 13:07
PROVIDERS: ATTEND Nurse Practitioner Adult Health
DX: R39.89 Other symptoms and signs involving the genitourinary system (principal)

== ENCOUNTER → 2024-02-21 | Outpatient (REF) | payer MEDICARE ==
[2024-02-21 13:33] LABS: HEMATOCRIT 36.7 % (36.0-47.0); MEAN CORPUSCULAR HEMOGLOBIN 28.4 pg (27.0-33.0); MEAN CORPUSCULAR HGB CONC 32.7 g/dl (32.0-36.5); MEAN CORPUSCULAR VOLUME 86.8 fl (80.0-96.0); PLATELET COUNT, AUTOMATED 328 10^3/uL (150-450); RED BLOOD COUNT 4.23 10^6/uL (4.00-5.40); WHITE BLOOD COUNT 5.4 10^3/uL (4.0-10.0)
[2024-02-21 13:59] LABS: BLOOD UREA NITROGEN 21 MG/DL (9-23); CARBON DIOXIDE LEVEL 28 MMOL/L (20-31); CHLORIDE LEVEL 101 MMOL/L (98-107); GLOMERULAR FILTRATION RATE > 60.0 (>45); GLUCOSE, FASTING 132 MG/DL (74-106); POTASSIUM SERUM 4.2 MMOL/L (3.5-5.1); SODIUM LEVEL 135 MMOL/L (136-145)
== END ==
LOC: SKLAB4 11:59
PROVIDERS: ATTEND Nurse Practitioner Adult Health
DX: R31.9 Hematuria, unspecified (principal)

== ENCOUNTER 2024-02-23 11:07 | Inpatient (IN) | payer MEDICARE, MEDICAID ==
[~2024-02-23] VITALS: Ht 170.2 cm; Wt 96.5 kg
[2024-02-23] MEDS ORDERED: NS 1,000 ML IV ONE (12:50)
[2024-02-23 12:58] LABS: BASO # 0.1 10^3/uL (0.0-0.2); BASO % 0.3 % (0.0-1.0); HEMATOCRIT 39.2 % (36.0-47.0); HEMOGLOBIN 12.6 g/dl (12.0-15.5); LYMPH # 0.3 10^3/uL (1.5-5.0); LYMPH % 1.7 % (24.0-44.0); MEAN CORPUSCULAR HEMOGLOBIN 28.1 pg (27.0-33.0); MEAN CORPUSCULAR HGB CONC 32.1 g/dl (32.0-36.5); MEAN CORPUSCULAR VOLUME 87.3 fl (80.0-96.0); MONO # 0.6 10^3/uL (0.0-0.8); MONO % 2.8 % (2.0-8.0); NEUTROPHILS # 18.3 10^3/uL (1.5-8.5); NEUTROPHILS % 94.8 % (36.0-66.0); PLATELET COUNT, AUTOMATED 277 10^3/uL (150-450); RED BLOOD COUNT 4.49 10^6/uL (4.00-5.40); WHITE BLOOD COUNT 19.3 10^3/uL (4.0-10.0)
[2024-02-23 13:03] LABS: CK-MB VALUE MASS < 1.0 NG/ML (<3.6); ETHYL ALCOHOL (ETHANOL) 0.005 % (0.000-0.010)
[2024-02-23 13:05] LABS: ALBUMIN 3.6 G/DL (3.2-5.2); ALKALINE PHOSPHATASE 87 U/L (46-116); ALT/SGPT 10 U/L (7.0-40); AST/SGOT 10 U/L (<34); BILIRUBIN,DIRECT 0.4 MG/DL (<0.4); BLOOD UREA NITROGEN 19 MG/DL (9-23); CALCIUM LEVEL 9.5 MG/DL (8.3-10.6); CARBON DIOXIDE LEVEL 27 MMOL/L (20-31); CHLORIDE LEVEL 102 MMOL/L (98-107); CREATININE FOR GFR 0.59 MG/DL (0.55-1.30); GLOMERULAR FILTRATION RATE > 60.0 (>45); GLUCOSE, FASTING 186 MG/DL (74-106); POTASSIUM SERUM 4.2 MMOL/L (3.5-5.1); SODIUM LEVEL 137 MMOL/L (136-145); TOTAL PROTEIN 6.8 G/DL (5.7-8.2)
[2024-02-23 13:06] LABS: THYROID STIMULATING HORMONE 1.082 uIU/ML (0.55-4.78)
[2024-02-23 13:07] LABS: CPK CREATINE PHOSPHOKINASE 26 U/L (34-145); MB/CK RELATIVE INDEX 3.84 (< OR =4)
[2024-02-23] MEDS ORDERED: ISOVUE-370 76% 100ML VIAL As Ordered ONE (13:21)
[2024-02-23] MEDS: NS 1,000 ML IV ONE ×2 (13:43→14:26)
[2024-02-23 14:27] LABS: VENOUS HCO3 26.1 MMOL/L (23.0-27.0); VENOUS O2 SATURATION 76.2 % (60.0-80.0); VENOUS PARTIAL PRESSURE CO2 43.5 mmHg (38.0-50.0); VENOUS PH 7.396 UNITS (7.330-7.430); VENOUS STANDARD HCO3 24.9 MMOL/L; VENOUS TOTAL CO2 27.4 MMOL/L (24.0-28.0)
[2024-02-23] MEDS: PIPERACILLIN/TAZOBACTAM SOD 4.5 GM in D5W MINI-BAG PLUS 50 ML IV ONE (14:27)
[2024-02-23 15:02] LABS: C REACTIVE PROTEIN QUANTITATIV 1.3 MG/DL (<1.0)
[2024-02-23 15:07] LABS: FREE T4 1.2 NG/DL (0.89-1.76)
[2024-02-23 15:12] LABS: PROCALCITONIN 1.95 ng/ml
[2024-02-23] MEDS: ACETAMINOPHEN *IV* 1,000 MG in IV 1 EA IV ONE (15:29)
[2024-02-23] MEDS ORDERED: ACETAMINOPHEN TAB 650MG DOSE (2X325MG) PO PRN (15:30)
[2024-02-23] MEDS ORDERED: MOM 30ML SUSPENSION UDC PO PRN (15:30)
[2024-02-23] MEDS ORDERED: METH-855 PO (15:35)
[2024-02-23] MEDS: VANCOMYCIN HCL 1,000 MG, VIAL MATE ADAPTER 1 EACH in D5W 250 ML IV ONE (15:45)
[2024-02-23] MEDS ORDERED: MEMA10TA PO (15:48)
[2024-02-23] MEDS: INSULIN LISPRO (NovoLOG) PER UNIT SC SCH ×2 (17:30→21:00)
[2024-02-23] MEDS ORDERED: DEXTROSE 50% 50ML SYRINGE IV PRN (17:35)
[2024-02-23] MEDS ORDERED: GLUCAGON INJ 1MG VIAL SC PRN (17:35)
[2024-02-23] MEDS ORDERED: GLUCOSE 4GM CHEW TABLET PO PRN (17:35)
[2024-02-23 18:00] VITALS: BP 123/58; TEMP 97.5; O2SAT 95
[2024-02-23] MEDS ORDERED: MOM30SS2 PO (18:08)
[2024-02-23] MEDS ORDERED: ACET650S3 PR (18:08)
[2024-02-23] MEDS ORDERED: ACET1TAB55 PO (18:09)
[2024-02-23] MEDS ORDERED: HOME MED LIST COMPLETE! XX SCH (18:15)
[2024-02-23] MEDS: cefTRIAXone SOD 2 GM in D5W MINI-BAG PLUS 50 ML IV SCH (19:39)
[2024-02-23 20:00] VITALS: BP 111/48; TEMP 96.9; O2SAT 98
[2024-02-24] VITALS: BP 91/44; TEMP 96.1; O2SAT 93
[2024-02-24] MEDS: NS 500 ML IV ONE (00:23)
[2024-02-24 01:00] VITALS: BP 101/51
[2024-02-24 04:00] VITALS: BP 110/55; TEMP 96.1; TEMP 97.3; O2SAT 95
[2024-02-24 04:28] LABS: HEMATOCRIT 34.7 % (36.0-47.0); MEAN CORPUSCULAR HEMOGLOBIN 28.4 pg (27.0-33.0); MEAN CORPUSCULAR HGB CONC 31.7 g/dl (32.0-36.5); MEAN CORPUSCULAR VOLUME 89.7 fl (80.0-96.0); PLATELET COUNT, AUTOMATED 242 10^3/uL (150-450); RED BLOOD COUNT 3.87 10^6/uL (4.00-5.40); WHITE BLOOD COUNT 20.7 10^3/uL (4.0-10.0)
[2024-02-24 04:47] LABS: BLOOD UREA NITROGEN 18 MG/DL (9-23); CALCIUM LEVEL 8.8 MG/DL (8.3-10.6); CARBON DIOXIDE LEVEL 27 MMOL/L (20-31); CHLORIDE LEVEL 106 MMOL/L (98-107); CREATININE FOR GFR 0.58 MG/DL (0.55-1.30); GLOMERULAR FILTRATION RATE > 60.0 (>45); GLUCOSE, FASTING 116 MG/DL (74-106); MAGNESIUM LEVEL 1.8 MG/DL (1.8-2.4); POTASSIUM SERUM 3.5 MMOL/L (3.5-5.1); SODIUM LEVEL 139 MMOL/L (136-145)
[2024-02-24] MEDS: PIPERACILLIN/TAZOBACTAM SOD 4.5 GM in D5W MINI-BAG PLUS 50 ML IV SCH (06:48)
[2024-02-24 07:48] VITALS: BP 101/49; TEMP 97.1; O2SAT 98
[2024-02-24 11:45] VITALS: BP 136/56; TEMP 97.6; O2SAT 98
[2024-02-24] MEDS: LEVEMIR (INSULIN DETEMIR) 1 UNITS/0.01ML SC SCH (12:34)
[2024-02-24 16:00] VITALS: BP 112/51; TEMP 97.8; O2SAT 98
[2024-02-25 00:38] VITALS: BP 118/56; TEMP 97.2; O2SAT 96
[2024-02-25 03:58] VITALS: BP 138/58; TEMP 97.5; O2SAT 97
[2024-02-25] MEDS: BISACODYL 10MG SUPP PR SCH (06:00)
[2024-02-25 07:47] LABS: BASO # 0.1 10^3/uL (0.0-0.2); BASO % 0.6 % (0.0-1.0); EOS # 0.2 10^3/uL (0.0-0.5); EOS % 1.5 % (0.0-3.0); HEMATOCRIT 32.4 % (36.0-47.0); HEMOGLOBIN 10.4 g/dl (12.0-15.5); LYMPH # 1.2 10^3/uL (1.5-5.0); LYMPH % 11.7 % (24.0-44.0); MEAN CORPUSCULAR HEMOGLOBIN 28.3 pg (27.0-33.0); MEAN CORPUSCULAR HGB CONC 32.1 g/dl (32.0-36.5); MONO # 0.6 10^3/uL (0.0-0.8); MONO % 5.6 % (2.0-8.0); NEUTROPHILS # 8.1 10^3/uL (1.5-8.5); NEUTROPHILS % 80.2 % (36.0-66.0); PLATELET COUNT, AUTOMATED 221 10^3/uL (150-450); RED BLOOD COUNT 3.68 10^6/uL (4.00-5.40)
[2024-02-25 08:00] VITALS: BP 123/60; TEMP 97; O2SAT 95
[2024-02-25 08:10] LABS: BLOOD UREA NITROGEN 18 MG/DL (9-23); CALCIUM LEVEL 8.1 MG/DL (8.3-10.6); CARBON DIOXIDE LEVEL 26 MMOL/L (20-31); CHLORIDE LEVEL 105 MMOL/L (98-107); CREATININE FOR GFR 0.74 MG/DL (0.55-1.30); GLOMERULAR FILTRATION RATE > 60.0 (>45); GLUCOSE, FASTING 109 MG/DL (74-106); MAGNESIUM LEVEL 1.6 MG/DL (1.8-2.4); POTASSIUM SERUM 3.1 MMOL/L (3.5-5.1); SODIUM LEVEL 137 MMOL/L (136-145)
[2024-02-25] MEDS: MIRALAX *UNIT DOSE* 17GM PACKET PO SCH (08:51)
[2024-02-25] MEDS: MAGNESIUM OXIDE 400MG TAB (MAG-OX) PO SCH (08:51)
[2024-02-25] MEDS: cefTRIAXone SOD 2 GM in D5W MINI-BAG PLUS 50 ML IV SCH (08:51)
[2024-02-25] MEDS: busPIRone 10 MG TAB PO SCH (08:51)
[2024-02-25] MEDS: ESCITALOPRAM OXALATE 10 MG TAB (LEXAPRO) PO SCH (08:51)
[2024-02-25] MEDS: SIMETHICONE 80MG CHEW TAB PO SCH (08:51)
[2024-02-25] MEDS: MAG SULF 1GM/100ML (MAG RUN) 1 GM in IV 1 EA IV SCH (10:45)
[2024-02-25] MEDS: POTASSIUM CHLORIDE 10MEQ SR TABLET PO ONE (10:45)
[2024-02-25] MEDS: KCL 10MEQ/100ML SWI (KRUN) 10 MEQ in IV 1 EA IV SCH (13:05)
[2024-02-25 15:55] VITALS: BP 141/57; TEMP 97; O2SAT 97
[2024-02-25 18:24] LABS: BLOOD UREA NITROGEN 16 MG/DL (9-23); CALCIUM LEVEL 8.4 MG/DL (8.3-10.6); CARBON DIOXIDE LEVEL 24 MMOL/L (20-31); CHLORIDE LEVEL 105 MMOL/L (98-107); CREATININE FOR GFR 0.73 MG/DL (0.55-1.30); GLOMERULAR FILTRATION RATE > 60.0 (>45); GLUCOSE, FASTING 121 MG/DL (74-106); SODIUM LEVEL 137 MMOL/L (136-145)
[2024-02-25 20:08] VITALS: BP 124/56; TEMP 97.1; O2SAT 98
[2024-02-26 04:11] VITALS: BP 110/54; TEMP 97; O2SAT 97
[2024-02-26 05:55] LABS: BASO # 0.1 10^3/uL (0.0-0.2); BASO % 0.8 % (0.0-1.0); EOS # 0.2 10^3/uL (0.0-0.5); EOS % 2.7 % (0.0-3.0); HEMOGLOBIN 10.7 g/dl (12.0-15.5); LYMPH # 1.4 10^3/uL (1.5-5.0); LYMPH % 21.7 % (24.0-44.0); MEAN CORPUSCULAR HGB CONC 31.5 g/dl (32.0-36.5); MONO # 0.5 10^3/uL (0.0-0.8); MONO % 7.1 % (2.0-8.0); NEUTROPHILS # 4.3 10^3/uL (1.5-8.5); NEUTROPHILS % 67.2 % (36.0-66.0); PLATELET COUNT, AUTOMATED 241 10^3/uL (150-450); RED BLOOD COUNT 3.82 10^6/uL (4.00-5.40); WHITE BLOOD COUNT 6.4 10^3/uL (4.0-10.0)
[2024-02-26 06:15] LABS: BLOOD UREA NITROGEN 15 MG/DL (9-23); CALCIUM LEVEL 8.6 MG/DL (8.3-10.6); CARBON DIOXIDE LEVEL 26 MMOL/L (20-31); CHLORIDE LEVEL 106 MMOL/L (98-107); CREATININE FOR GFR 0.68 MG/DL (0.55-1.30); GLOMERULAR FILTRATION RATE > 60.0 (>45); GLUCOSE, FASTING 118 MG/DL (74-106); MAGNESIUM LEVEL 1.8 MG/DL (1.8-2.4); POTASSIUM SERUM 3.7 MMOL/L (3.5-5.1); SODIUM LEVEL 137 MMOL/L (136-145)
[2024-02-26] MEDS ORDERED: CEFD1CAP9 PO (06:49)
[2024-02-26 07:21] VITALS: BP 119/56; TEMP 97.4; O2SAT 98
== END 2024-02-26 11:18 | DRG 871 ==
LOC: M ED 11:07 → M ED INP 15:26 → M PCU 17:43
PROVIDERS: ADMIT Student in an Organized Health Care Education/Training Program; ATTEND Student in an Organized Health Care Education/Training Program
DX: A41.51 Sepsis due to Escherichia coli [E. coli] (principal); G92.8 Other toxic encephalopathy; N39.0 Urinary tract infection, site not specified; G10 Huntington's disease; B96.20 Unspecified Escherichia coli [E. coli] as the cause of diseases classified elsewhere; K59.81 Ogilvie syndrome; F02.80 Dementia in other diseases classified elsewhere, unspecified severity, without behavioral disturbance, psychotic disturbance, mood disturbance, and anxiety; E11.9 Type 2 diabetes mellitus without complications; E83.42 Hypomagnesemia; K59.09 Other constipation; F41.9 Anxiety disorder, unspecified; F32.A Depression, unspecified; Z79.01 Long term (current) use of anticoagulants; Z79.82 Long term (current) use of aspirin; Z79.4 Long term (current) use of insulin; Z79.899 Other long term (current) drug therapy; Z88.8 Allergy status to other drugs, medicaments and biological substances; Z11.52 Encounter for screening for COVID-19; Z86.711 Personal history of pulmonary embolism; E87.6 Hypokalemia; R54 Age-related physical debility

== ENCOUNTER 2024-03-12 16:35 | Inpatient (IN) | payer MEDICAID, MEDICARE ==
[~2024-03-12] VITALS: Ht 167.6 cm; Wt 102.1 kg
[~2024-03-12 16:35] MED LIST changes: +ACET1TAB55 PO; +ACET650S3 PR; +CEFD1CAP9 PO; +MEMA10TA PO; +METH-855 PO
[2024-03-12 17:00] LABS: VENOUS BASE EXCESS 0.9 (-2.0-2.0); VENOUS HCO3 27.1 MMOL/L (23.0-27.0); VENOUS O2 SATURATION 52.6 % (60.0-80.0); VENOUS PARTIAL PRESSURE CO2 49.7 mmHg (38.0-50.0); VENOUS PARTIAL PRESSURE O2 29.9 mmHg (30.0-50.0); VENOUS PH 7.355 UNITS (7.330-7.430); VENOUS STANDARD HCO3 24.2 MMOL/L; VENOUS TOTAL CO2 28.7 MMOL/L (24.0-28.0)
[2024-03-12 17:22] LABS: BASO # 0.1 10^3/uL (0.0-0.2); BASO % 0.3 % (0.0-1.0); EOS # 0.1 10^3/uL (0.0-0.5); EOS % 0.3 % (0.0-3.0); HEMATOCRIT 38.3 % (36.0-47.0); HEMOGLOBIN 12.4 g/dl (12.0-15.5); LYMPH # 0.5 10^3/uL (1.5-5.0); LYMPH % 3.6 % (24.0-44.0); MEAN CORPUSCULAR HEMOGLOBIN 28.8 pg (27.0-33.0); MEAN CORPUSCULAR HGB CONC 32.4 g/dl (32.0-36.5); MEAN CORPUSCULAR VOLUME 88.9 fl (80.0-96.0); MONO # 0.6 10^3/uL (0.0-0.8); MONO % 3.9 % (2.0-8.0); NEUTROPHILS # 13.7 10^3/uL (1.5-8.5); NEUTROPHILS % 91.5 % (36.0-66.0); PLATELET COUNT, AUTOMATED 291 10^3/uL (150-450); RED BLOOD COUNT 4.31 10^6/uL (4.00-5.40)
[2024-03-12 17:39] LABS: ALBUMIN 3.6 G/DL (3.2-5.2); ALKALINE PHOSPHATASE 88 U/L (46-116); ALT/SGPT 15 U/L (7.0-40); AST/SGOT 12 U/L (<34); BILIRUBIN,DIRECT 0.3 MG/DL (<0.4); BILIRUBIN,TOTAL 0.8 MG/DL (0.3-1.2); BLOOD UREA NITROGEN 16 MG/DL (9-23); CALCIUM LEVEL 9.7 MG/DL (8.3-10.6); CARBON DIOXIDE LEVEL 27 MMOL/L (20-31); CHLORIDE LEVEL 100 MMOL/L (98-107); CREATININE FOR GFR 0.72 MG/DL (0.55-1.30); GLOMERULAR FILTRATION RATE > 60.0 (>45); GLUCOSE, FASTING 174 MG/DL (74-106); POTASSIUM SERUM 4.2 MMOL/L (3.5-5.1); SODIUM LEVEL 135 MMOL/L (136-145); THYROID STIMULATING HORMONE 2.796 uIU/ML (0.55-4.78); TOTAL PROTEIN 6.7 G/DL (5.7-8.2)
[2024-03-12] MEDS: ACETAMINOPHEN *IV* 1,000 MG in IV 1 EA IV ONE (17:39)
[2024-03-12] MEDS ORDERED: ISOVUE-370 76% 100ML VIAL As Ordered ONE (17:47)
[2024-03-12] MEDS ORDERED: MAGN400T2 PO (17:48)
[2024-03-12] MEDS ORDERED: HOME MED LIST COMPLETE! XX SCH (17:50)
[2024-03-12] MEDS: NS IV ONE (17:51)
[2024-03-12] MEDS: cefTRIAXone SOD 2 GM in D5W MINI-BAG PLUS 50 ML IV ONE (18:55)
[2024-03-12] MEDS: INSULIN LISPRO (NovoLOG) PER UNIT SC SCH (21:00)
[2024-03-12] MEDS: SIMETHICONE 80MG CHEW TAB PO SCH (21:00)
[2024-03-12] MEDS: MIRALAX *UNIT DOSE* 17GM PACKET PO SCH (21:00)
[2024-03-12] MEDS ORDERED: ONDANSETRON 4MG TAB PO PRN (21:25)
[2024-03-12] MEDS ORDERED: GLUCAGON INJ 1MG VIAL SC PRN (21:45)
[2024-03-12] MEDS ORDERED: DEXTROSE 50% 50ML SYRINGE IV PRN (21:45)
[2024-03-12] MEDS ORDERED: GLUCOSE 4 GM CHEW PO PRN (21:45)
[2024-03-12] MEDS: BISACODYL 10MG SUPP PR SCH (22:00)
[2024-03-12] MEDS: MAGNESIUM OXIDE 400MG TAB (MAG-OX) PO SCH (23:00)
[2024-03-13] VITALS (11 sets, daily range): BP systolic 94–127; BP diastolic 47–58; TEMP 96.7–98; O2SAT 95–100
[2024-03-13] MEDS: APIXABAN 5 MG TAB (ELIQUIS) PO SCH (00:13)
[2024-03-13] MEDS: NS 1,000 ML IV SCH (00:14)
[2024-03-13] MEDS: busPIRone 10 MG TAB PO SCH (00:14)
[2024-03-13] MEDS: PIPERACILLIN/TAZOBACTAM SOD 3.375 GM in D5W MINI-BAG PLUS 50 ML IV SCH (00:14)
[2024-03-13] MEDS ORDERED: MOM 30ML SUSPENSION UDC PO PRN (00:35)
[2024-03-13 06:19] LABS: HEMOGLOBIN 10.6 g/dl (12.0-15.5); MEAN CORPUSCULAR HEMOGLOBIN 28.3 pg (27.0-33.0); MEAN CORPUSCULAR HGB CONC 32.1 g/dl (32.0-36.5); MEAN CORPUSCULAR VOLUME 88.2 fl (80.0-96.0); PLATELET COUNT, AUTOMATED 218 10^3/uL (150-450); RED BLOOD COUNT 3.74 10^6/uL (4.00-5.40); WHITE BLOOD COUNT 17.2 10^3/uL (4.0-10.0)
[2024-03-13 06:46] LABS: BLOOD UREA NITROGEN 15 MG/DL (9-23); CALCIUM LEVEL 8.5 MG/DL (8.3-10.6); CARBON DIOXIDE LEVEL 26 MMOL/L (20-31); CHLORIDE LEVEL 106 MMOL/L (98-107); CREATININE FOR GFR 0.61 MG/DL (0.55-1.30); GLOMERULAR FILTRATION RATE > 60.0 (>45); GLUCOSE, FASTING 118 MG/DL (74-106); MAGNESIUM LEVEL 1.6 MG/DL (1.8-2.4); POTASSIUM SERUM 3.5 MMOL/L (3.5-5.1); SODIUM LEVEL 140 MMOL/L (136-145)
[2024-03-13] MEDS ORDERED: ACETAMINOPHEN TAB 650MG DOSE (2X325MG) PO PRN (07:10)
[2024-03-13 08:01] LABS: CLOSTRIDIUM DIFFICILE PCR NEGATIVE (NEGATIVE)
[2024-03-13] MEDS: MAG SULF 1GM/100ML (MAG RUN) 1 GM in IV 1 EA IV ONE (09:01)
[2024-03-13] MEDS: INSULIN LISPRO (NovoLOG) PER UNIT SC SCH (09:15)
[2024-03-13] MEDS ORDERED: PILL CUTTER 1 EACH XX ONE (09:42)
[2024-03-13] MEDS: ESCITALOPRAM OXALATE 10 MG TAB (LEXAPRO) PO SCH (09:48)
[2024-03-13] MEDS: LEVEMIR (INSULIN DETEMIR) 1 UNITS/0.01ML SC SCH (09:48)
[2024-03-13] MEDS: ASPIRIN 81MG CHEW TABLET PO SCH (09:48)
[2024-03-13] MEDS: MAGNESIUM OXIDE 400MG TAB (MAG-OX) PO SCH (09:48)
[2024-03-13] MEDS: LACTOBACILLUS ACIDOPHILUS CAP (BACID) PO SCH (09:49)
[2024-03-13] MEDS: MEMANTINE 5MG TABLET (NAMENDA) PO SCH (09:50)
[2024-03-13] MEDS: risperiDONE 0.5 MG TAB PO SCH (09:50)
[2024-03-13] MEDS: METHENAMINE HIPPURATE 1GM TABLET PO SCH (09:52)
[2024-03-13] MEDS ORDERED: SENOKOT S TAB PO SCH (21:00)
[2024-03-14 00:32] VITALS: BP 123/62; TEMP 97.9; O2SAT 96
[2024-03-14 03:43] VITALS: BP 127/63; TEMP 97.2; O2SAT 97
[2024-03-14 07:14] LABS: HEMATOCRIT 30.7 % (36.0-47.0); HEMOGLOBIN 9.9 g/dl (12.0-15.5); MEAN CORPUSCULAR HEMOGLOBIN 28.3 pg (27.0-33.0); MEAN CORPUSCULAR HGB CONC 32.2 g/dl (32.0-36.5); MEAN CORPUSCULAR VOLUME 87.7 fl (80.0-96.0); PLATELET COUNT, AUTOMATED 167 10^3/uL (150-450); WHITE BLOOD COUNT 6.9 10^3/uL (4.0-10.0)
[2024-03-14 07:40] LABS: ALBUMIN 2.3 G/DL (3.2-5.2); ALKALINE PHOSPHATASE 58 U/L (46-116); ALT/SGPT < 9 U/L (7.0-40); AST/SGOT 8 U/L (<34); BILIRUBIN,TOTAL 0.4 MG/DL (0.3-1.2); BLOOD UREA NITROGEN 12 MG/DL (9-23); CALCIUM LEVEL 8.3 MG/DL (8.3-10.6); CARBON DIOXIDE LEVEL 26 MMOL/L (20-31); CHLORIDE LEVEL 108 MMOL/L (98-107); CREATININE FOR GFR 0.67 MG/DL (0.55-1.30); GLOMERULAR FILTRATION RATE > 60.0 (>45); GLUCOSE, FASTING 102 MG/DL (74-106); MAGNESIUM LEVEL 1.6 MG/DL (1.8-2.4); POTASSIUM SERUM 3.9 MMOL/L (3.5-5.1); SODIUM LEVEL 140 MMOL/L (136-145); TOTAL PROTEIN 5.2 G/DL (5.7-8.2)
[2024-03-14 08:00] VITALS: BP 127/58; TEMP 97.5; O2SAT 96
[2024-03-14] MEDS: MAG SULF 1GM/100ML (MAG RUN) 1 GM in IV 1 EA IV SCH (10:40)
[2024-03-14 12:00] VITALS: BP 118/64; TEMP 97.4; O2SAT 94
[2024-03-14 16:00] VITALS: BP 113/59; TEMP 98; O2SAT 96
[2024-03-14 19:44] VITALS: BP 112/54; TEMP 97.8; O2SAT 97
[2024-03-14] MEDS: MIRALAX *UNIT DOSE* 17GM PACKET PO SCH (21:13)
[2024-03-14] MEDS: SENOKOT S TAB PO SCH (21:13)
[2024-03-15 03:21] VITALS: BP 132/62; TEMP 96.7; O2SAT 97
[2024-03-15] MEDS: MOM 30ML SUSPENSION UDC PO PRN (05:26)
[2024-03-15 05:37] LABS: HEMATOCRIT 32.7 % (36.0-47.0); HEMOGLOBIN 10.7 g/dl (12.0-15.5); MEAN CORPUSCULAR HEMOGLOBIN 28.6 pg (27.0-33.0); MEAN CORPUSCULAR HGB CONC 32.7 g/dl (32.0-36.5); MEAN CORPUSCULAR VOLUME 87.4 fl (80.0-96.0); PLATELET COUNT, AUTOMATED 189 10^3/uL (150-450); RED BLOOD COUNT 3.74 10^6/uL (4.00-5.40); WHITE BLOOD COUNT 5.6 10^3/uL (4.0-10.0)
[2024-03-15 06:05] LABS: ALBUMIN 2.4 G/DL (3.2-5.2); ALKALINE PHOSPHATASE 60 U/L (46-116); ALT/SGPT < 9 U/L (7.0-40); AST/SGOT 12 U/L (<34); BILIRUBIN,TOTAL 0.3 MG/DL (0.3-1.2); BLOOD UREA NITROGEN 9 MG/DL (9-23); CALCIUM LEVEL 8.3 MG/DL (8.3-10.6); CARBON DIOXIDE LEVEL 23 MMOL/L (20-31); CHLORIDE LEVEL 108 MMOL/L (98-107); CREATININE FOR GFR 0.62 MG/DL (0.55-1.30); GLOMERULAR FILTRATION RATE > 60.0 (>45); GLUCOSE, FASTING 93 MG/DL (74-106); POTASSIUM SERUM 3.8 MMOL/L (3.5-5.1); SODIUM LEVEL 140 MMOL/L (136-145); TOTAL PROTEIN 5.4 G/DL (5.7-8.2)
[2024-03-15 08:34] VITALS: BP 108/48; TEMP 97.8; O2SAT 96
[2024-03-15] MEDS: LACTULOSE 20GM/30ML SYRUP UDC PO SCH (08:53)
[2024-03-15] MEDS ORDERED: RISATAB3 PO (11:32)
[2024-03-15] MEDS ORDERED: LEVO1TAB39 PO (11:33)
== END 2024-03-15 14:13 | DRG 698 ==
LOC: EDBD 16:35 → M ED 16:35 → M ED INP 21:24 → ENRESERV 03-13 00:15 → M PCU 03-13 01:09
PROVIDERS: ADMIT Preventive Medicine Undersea and Hyperbaric Medicine; ATTEND Internal Medicine
DX: T83.511A Infection and inflammatory reaction due to indwelling urethral catheter, initial encounter (principal); G93.41 Metabolic encephalopathy; A41.9 Sepsis, unspecified organism; G10 Huntington's disease; N39.0 Urinary tract infection, site not specified; K59.81 Ogilvie syndrome; E11.9 Type 2 diabetes mellitus without complications; F03.90 Unspecified dementia, unspecified severity, without behavioral disturbance, psychotic disturbance, mood disturbance, and anxiety; E83.42 Hypomagnesemia; K59.09 Other constipation; R19.7 Diarrhea, unspecified; B96.5 Pseudomonas (aeruginosa) (mallei) (pseudomallei) as the cause of diseases classified elsewhere; F41.9 Anxiety disorder, unspecified; F32.A Depression, unspecified; Y84.6 Urinary catheterization as the cause of abnormal reaction of the patient, or of later complication, without mention of misadventure at the time of the procedure; Z87.442 Personal history of urinary calculi; Z86.711 Personal history of pulmonary embolism; Z79.01 Long term (current) use of anticoagulants; Z79.82 Long term (current) use of aspirin; Z79.4 Long term (current) use of insulin; Z79.899 Other long term (current) drug therapy; Z88.8 Allergy status to other drugs, medicaments and biological substances

== ENCOUNTER → 2024-04-17 | Outpatient (CLI) | payer MEDICARE ==
[~2024-04-17] MED LIST changes: +LEVO1TAB39 PO; +RISATAB3 PO
== END ==
LOC: M RAD 10:12
PROVIDERS: ATTEND Nurse Practitioner Adult Health
DX: Z01.818 Encounter for other preprocedural examination (principal)

== ENCOUNTER → 2024-04-17 | Outpatient (REF) | payer MEDICARE, MEDICAID ==
[~2024-04-17] MED LIST changes: +ACET-907 PO; +BACI1CAP PO; +PROBCAP14 PO
[2024-04-17 09:49] LABS: HEMATOCRIT 38.8 % (36.0-47.0); HEMOGLOBIN 12.4 g/dl (12.0-15.5); MEAN CORPUSCULAR HEMOGLOBIN 28.2 pg (27.0-33.0); MEAN CORPUSCULAR VOLUME 88.2 fl (80.0-96.0); PLATELET COUNT, AUTOMATED 254 10^3/uL (150-450); WHITE BLOOD COUNT 4.6 10^3/uL (4.0-10.0)
[2024-04-17 10:10] LABS: ALBUMIN 3.1 G/DL (3.2-5.2); ALKALINE PHOSPHATASE 83 U/L (46-116); ALT/SGPT 11 U/L (7.0-40); AST/SGOT 12 U/L (<34); BILIRUBIN,TOTAL 0.6 MG/DL (0.3-1.2); BLOOD UREA NITROGEN 14 MG/DL (9-23); CALCIUM LEVEL 9.3 MG/DL (8.3-10.6); CARBON DIOXIDE LEVEL 27 MMOL/L (20-31); CHLORIDE LEVEL 105 MMOL/L (98-107); CREATININE FOR GFR 0.52 MG/DL (0.55-1.30); GLOMERULAR FILTRATION RATE > 60.0 (>45); GLUCOSE, FASTING 142 MG/DL (74-106); MAGNESIUM LEVEL 1.6 MG/DL (1.8-2.4); POTASSIUM SERUM 3.4 MMOL/L (3.5-5.1); SODIUM LEVEL 136 MMOL/L (136-145); TOTAL PROTEIN 6.2 G/DL (5.7-8.2)
== END ==
LOC: SKLAB4 07:29
PROVIDERS: ATTEND Family Medicine
DX: Z01.818 Encounter for other preprocedural examination (principal); Z79.899 Other long term (current) drug therapy

== ENCOUNTER → 2024-04-22 | Outpatient (REF) | payer MEDICARE ==
[~2024-04-22] MED LIST changes: -ACET-907 PO; -BACI1CAP PO; -PROBCAP14 PO
[2024-04-22 14:08] LABS: APPEARANCE, URINE HAZY (CLEAR); BACTERIA, URINE AUTO NEGATIVE (NEGATIVE); BILIRUBIN, URINE AUTO NEGATIVE (NEGATIVE); BLOOD, URINE BLOOD 1+ (NEGATIVE); COLOR, URINE AMBER (YELLOW); GLUCOSE, URINE (UA) AUTO NEGATIVE (NEGATIVE); KETONE, URINE AUTO NEGATIVE (NEGATIVE); LEUKOCYTE ESTERASE, URINE AUTO 2+ (NEGATIVE); MUCUS, URINE SMALL (NEGATIVE); NITRITE, URINE AUTO NEGATIVE (NEGATIVE); PROTEIN, URINE AUTO 1+ mg/dL (NEGATIVE); RBC, URINE AUTO 37 /HPF (0-3); SPECIFIC GRAVITY URINE AUTO 1.024 (1.002-1.035); SQUAMOUS EPITHELIAL CELL UR AU 1 /HPF (0-6); UROBILINOGEN, URINE AUTO 0.2 mg/dL (0.0-2.0); WBC, URINE AUTO 49 /HPF (0-3)
== END ==
LOC: SKLAB4 09:43
PROVIDERS: ATTEND Family Medicine
DX: R30.0 Dysuria (principal)

== ENCOUNTER 2024-04-30 07:09 | Day surgery (SDC) | payer MEDICARE ==
[~2024-04-30] VITALS: Ht 170.2 cm; Wt 103.0 kg
[~2024-04-30 07:09] MED LIST changes: +LIDOCAINE 2% 100MG/5ML SDV (FOR ANES.) As Ordered ONE; +propofoL 200 MG/20 ML VIAL As Ordered ONE
[2024-04-30] MEDS ORDERED: ePHEDrine SULFATE 25 MG/5 ML(5MG/ML) SYRINGE As Ordered ONE (08:25)
[2024-04-30 08:47] VITALS: BP 133/62; TEMP 96.8; O2SAT 98
== END 2024-04-30 09:06 | disposition home or self-care (01) ==
LOC: M OPP 07:09
PROVIDERS: ATTEND Surgery
DX: K59.01 Slow transit constipation (principal); K59.81 Ogilvie syndrome; E11.9 Type 2 diabetes mellitus without complications; Z79.01 Long term (current) use of anticoagulants; Z79.1 Long term (current) use of non-steroidal anti-inflammatories (NSAID); Z79.4 Long term (current) use of insulin; Z79.82 Long term (current) use of aspirin; Z79.899 Other long term (current) drug therapy; Z88.8 Allergy status to other drugs, medicaments and biological substances

== ENCOUNTER → 2024-05-02 | Outpatient (REF) | payer MEDICARE ==
[~2024-05-02] MED LIST changes: +ACET-907 PO; +BACI1CAP PO; -LIDOCAINE 2% 100MG/5ML SDV (FOR ANES.) As Ordered ONE; +PROBCAP14 PO; -propofoL 200 MG/20 ML VIAL As Ordered ONE
[2024-05-02 07:19] LABS: HEMOGLOBIN A1c 5.2 % (4.0-6.0)
== END ==
LOC: SKLAB4 08:54
PROVIDERS: ATTEND Family Medicine
DX: E11.9 Type 2 diabetes mellitus without complications (principal)

== ENCOUNTER 2024-05-11 13:55 | Inpatient (IN) | payer MEDICARE ==
[~2024-05-11] VITALS: Ht 167.6 cm; Wt 102.0 kg
[~2024-05-11 13:55] MED LIST changes: -ACET-907 PO; -BACI1CAP PO; -PROBCAP14 PO
[2024-05-11] MEDS ORDERED: VANCOMYCIN HCL 2,000 MG in D5W 500 ML IV ONE (14:25)
[2024-05-11 14:40] LABS: ABG BASE EXCESS -0.5 (-2.0-2.0); ABG HCO3 22.5 MMOL/L (22.0-26.0); ABG O2 SATURATION 94.1 % (95.0-99.0); ABG PARTIAL PRESSURE CO2 31.9 mmHg (35.0-45.0); ABG PARTIAL PRESSURE O2 70.5 mmHg (75.0-100.0); ABG TOTAL CO2 23.5 MMOL/L (23.0-31.0); ABG pH (ARTERIAL) 7.466 UNITS (7.350-7.450)
[2024-05-11 14:50] LABS: BASO % 0.3 % (0.0-1.0); EOS % 0.1 % (0.0-3.0); HEMATOCRIT 37.8 % (36.0-47.0); HEMOGLOBIN 12.1 g/dl (12.0-15.5); LYMPH # 0.4 10^3/uL (1.5-5.0); LYMPH % 2.9 % (24.0-44.0); MEAN CORPUSCULAR HEMOGLOBIN 28.3 pg (27.0-33.0); MEAN CORPUSCULAR VOLUME 88.3 fl (80.0-96.0); MONO # 0.6 10^3/uL (0.0-0.8); MONO % 4.1 % (2.0-8.0); NEUTROPHILS # 13.6 10^3/uL (1.5-8.5); NEUTROPHILS % 92.3 % (36.0-66.0); PLATELET COUNT, AUTOMATED 234 10^3/uL (150-450); RED BLOOD COUNT 4.28 10^6/uL (4.00-5.40); WHITE BLOOD COUNT 14.7 10^3/uL (4.0-10.0)
[2024-05-11] MEDS: CEFEPIME HCL 2 GM in D5W MINI-BAG PLUS 50 ML IV ONE (15:00)
[2024-05-11] MEDS: NS 3,060 ML in IV 1 EA IV ONE (15:01)
[2024-05-11 15:04] LABS: INR 1.18; PARTIAL THROMBOPLASTIN TIME 34.7 SECONDS (24.8-34.2); PROTHROMBIN TIME 14.7 SECONDS (12.5-14.5)
[2024-05-11] MEDS: VANCOMYCIN HCL 1,000 MG, VIAL MATE ADAPTER 1 EACH in D5W 250 ML IV ONE ×2 (15:08→15:09)
[2024-05-11 15:14] LABS: ALBUMIN 3.2 G/DL (3.2-5.2); ALKALINE PHOSPHATASE 77 U/L (46-116); ALT/SGPT 10 U/L (7.0-40); AMYLASE 45 U/L (30-118); AST/SGOT < 8 U/L (<34); BILIRUBIN,DIRECT 0.2 MG/DL (<0.4); BILIRUBIN,TOTAL 0.7 MG/DL (0.3-1.2); BLOOD UREA NITROGEN 14 MG/DL (9-23); CARBON DIOXIDE LEVEL 27 MMOL/L (20-31); CHLORIDE LEVEL 103 MMOL/L (98-107); CREATININE FOR GFR 0.54 MG/DL (0.55-1.30); GLOMERULAR FILTRATION RATE > 60.0 (>45); GLUCOSE, FASTING 185 MG/DL (74-106); MAGNESIUM LEVEL 1.7 MG/DL (1.8-2.4); POTASSIUM SERUM 3.7 MMOL/L (3.5-5.1); SODIUM LEVEL 136 MMOL/L (136-145); TOTAL PROTEIN 6.2 G/DL (5.7-8.2)
[2024-05-11 15:16] LABS: AMORPHOUS SEDIMENT SMALL (NEGATIVE); BACTERIA, URINE AUTO 3+ (NEGATIVE); MUCUS, URINE SMALL (NEGATIVE); RBC, URINE AUTO 17 /HPF (0-3); SQUAMOUS EPITHELIAL CELL UR AU 1 /HPF (0-6); WBC, URINE AUTO TNTC /HPF (0-3)
[2024-05-11 15:26] LABS: PROCALCITONIN 0.07 ng/ml
[2024-05-11 15:45] LABS: APPEARANCE, URINE CLOUDY (CLEAR); COLOR, URINE YELLOW (YELLOW); PROTEIN, URINE AUTO 1+ mg/dL (NEGATIVE)
[2024-05-11 15:46] LABS: BILIRUBIN, URINE AUTO NEGATIVE (NEGATIVE); GLUCOSE, URINE (UA) AUTO NEGATIVE (NEGATIVE); KETONE, URINE AUTO NEGATIVE (NEGATIVE); LEUKOCYTE ESTERASE, URINE AUTO 3+ (NEGATIVE); NITRITE, URINE AUTO POSITIVE (NEGATIVE); UROBILINOGEN, URINE AUTO 0.2 mg/dL (0.0-2.0)
[2024-05-11 15:47] LABS: BLOOD, URINE BLOOD 3+ (NEGATIVE)
[2024-05-11] MEDS ORDERED: VANCOMYCIN HCL 750 MG, VIAL MATE ADAPTER 1 EACH in D5W 250 ML IV SCH (16:20)
[2024-05-11] MEDS ORDERED: MOM 30ML SUSPENSION UDC PO PRN (16:20)
[2024-05-11] MEDS ORDERED: GLUCOSE 4 GM CHEW PO PRN (16:35)
[2024-05-11] MEDS ORDERED: GLUCAGON INJ 1MG VIAL SC PRN (16:35)
[2024-05-11] MEDS ORDERED: DEXTROSE 50% 50ML SYRINGE IV PRN (16:35)
[2024-05-11] MEDS ORDERED: ISOVUE-370 76% 100ML VIAL As Ordered ONE (17:17)
[2024-05-11 18:00] VITALS: BP 121/55; TEMP 97.7; O2SAT 95
[2024-05-11] MEDS: MAG SULF 1GM/100ML (MAG RUN) 1 GM in IV 1 EA IV SCH (18:48)
[2024-05-11] MEDS: INSULIN LISPRO (NovoLOG) PER UNIT SC SCH ×2 (18:49→20:15)
[2024-05-11] MEDS ORDERED: MILKSUS3 PO (19:55)
[2024-05-11] MEDS ORDERED: FLEEENE12 PR (19:55)
[2024-05-11] MEDS ORDERED: BACI1CAP PO (19:55)
[2024-05-11] MEDS ORDERED: ACET-907 PO (19:55)
[2024-05-11] MEDS ORDERED: HOME MED LIST COMPLETE! XX SCH (20:00)
[2024-05-11 20:01] VITALS: BP 119/55; TEMP 97.7; O2SAT 94
[2024-05-11] MEDS ORDERED: DOCUSATE SODIUM 100MG CAPSULE PO SCH (21:00)
[2024-05-11] MEDS: DOCUSATE SOD LIQ 100MG/10ML UDC PO SCH (21:31)
[2024-05-11] MEDS: VANCOMYCIN HCL 1,000 MG, VIAL MATE ADAPTER 1 EACH in D5W 250 ML IV SCH (21:31)
[2024-05-12] MEDS: CEFEPIME HCL 2 GM in D5W MINI-BAG PLUS 50 ML IV SCH (02:29)
[2024-05-12 03:49] VITALS: BP 100/49; TEMP 97.2; O2SAT 96
[2024-05-12 07:18] LABS: BASO % 0.5 % (0.0-1.0); EOS # 0.1 10^3/uL (0.0-0.5); EOS % 1.5 % (0.0-3.0); HEMATOCRIT 33.3 % (36.0-47.0); HEMOGLOBIN 10.3 g/dl (12.0-15.5); LYMPH # 1.3 10^3/uL (1.5-5.0); LYMPH % 14.8 % (24.0-44.0); MEAN CORPUSCULAR HEMOGLOBIN 27.8 pg (27.0-33.0); MEAN CORPUSCULAR HGB CONC 30.9 g/dl (32.0-36.5); MONO # 0.6 10^3/uL (0.0-0.8); MONO % 6.4 % (2.0-8.0); NEUTROPHILS # 6.6 10^3/uL (1.5-8.5); NEUTROPHILS % 76.3 % (36.0-66.0); PLATELET COUNT, AUTOMATED 183 10^3/uL (150-450); WHITE BLOOD COUNT 8.6 10^3/uL (4.0-10.0)
[2024-05-12 07:51] LABS: BLOOD UREA NITROGEN 11 MG/DL (9-23); CALCIUM LEVEL 8.6 MG/DL (8.3-10.6); CARBON DIOXIDE LEVEL 27 MMOL/L (20-31); CHLORIDE LEVEL 108 MMOL/L (98-107); GLOMERULAR FILTRATION RATE > 60.0 (>45); GLUCOSE, FASTING 99 MG/DL (74-106); POTASSIUM SERUM 3.5 MMOL/L (3.5-5.1); SODIUM LEVEL 140 MMOL/L (136-145)
[2024-05-12 12:00] VITALS: BP 102/49; TEMP 97.5; O2SAT 94
[2024-05-12] MEDS: VANCOMYCIN HCL 1,000 MG, VIAL MATE ADAPTER 1 EACH in D5W 250 ML IV SCH (16:28)
[2024-05-12 19:39] VITALS: BP 100/50; TEMP 97.7; O2SAT 98
[2024-05-12 20:00] VITALS: BP 100/50; TEMP 97.7; O2SAT 98
[2024-05-12] MEDS: RAMELTEON 8 MG TAB (ROZEREM) PO PRN (21:45)
[2024-05-13 04:00] VITALS: BP 106/50; TEMP 97.3; O2SAT 96
[2024-05-13 06:00] LABS: BASO % 0.7 % (0.0-1.0); EOS # 0.2 10^3/uL (0.0-0.5); EOS % 2.8 % (0.0-3.0); HEMATOCRIT 34.9 % (36.0-47.0); HEMOGLOBIN 11.3 g/dl (12.0-15.5); LYMPH # 1.2 10^3/uL (1.5-5.0); LYMPH % 21.5 % (24.0-44.0); MEAN CORPUSCULAR HEMOGLOBIN 28.8 pg (27.0-33.0); MEAN CORPUSCULAR HGB CONC 32.4 g/dl (32.0-36.5); MEAN CORPUSCULAR VOLUME 88.8 fl (80.0-96.0); MONO # 0.5 10^3/uL (0.0-0.8); MONO % 8.5 % (2.0-8.0); NEUTROPHILS # 3.6 10^3/uL (1.5-8.5); NEUTROPHILS % 66.1 % (36.0-66.0); PLATELET COUNT, AUTOMATED 194 10^3/uL (150-450); RED BLOOD COUNT 3.93 10^6/uL (4.00-5.40); WHITE BLOOD COUNT 5.4 10^3/uL (4.0-10.0)
[2024-05-13 06:28] LABS: ERYTHROCYTE SEDIMENTATION RATE 20 mm/hr (0-30)
[2024-05-13 06:45] LABS: PROCALCITONIN 0.07 ng/ml
[2024-05-13 06:47] LABS: BLOOD UREA NITROGEN 11 MG/DL (9-23); CALCIUM LEVEL 8.9 MG/DL (8.3-10.6); CARBON DIOXIDE LEVEL 29 MMOL/L (20-31); CHLORIDE LEVEL 104 MMOL/L (98-107); CREATININE FOR GFR 0.56 MG/DL (0.55-1.30); GLOMERULAR FILTRATION RATE > 60.0 (>45); GLUCOSE, FASTING 119 MG/DL (74-106); POTASSIUM SERUM 4.6 MMOL/L (3.5-5.1); SODIUM LEVEL 135 MMOL/L (136-145)
[2024-05-13 12:00] VITALS: BP 103/51; TEMP 97.3; O2SAT 97
[2024-05-13] MEDS: VANCOMYCIN HCL 1,000 MG, VIAL MATE ADAPTER 1 EACH in D5W 250 ML IV SCH (14:13)
[2024-05-13] MEDS: ACETAMINOPHEN TAB 650MG DOSE (2X325MG) PO PRN (17:13)
[2024-05-13 19:25] VITALS: TEMP 97.5; O2SAT 97
[2024-05-13 19:51] VITALS: BP 80/40
[2024-05-13] MEDS: NS 250 ML IV ONE (20:09)
[2024-05-13 22:05] VITALS: BP 105/44
[2024-05-14 03:44] VITALS: TEMP 97.3; O2SAT 98
[2024-05-14 03:58] VITALS: BP 85/41
[2024-05-14 07:21] LABS: BASO % 0.8 % (0.0-1.0); EOS # 0.2 10^3/uL (0.0-0.5); EOS % 3.6 % (0.0-3.0); HEMATOCRIT 35.9 % (36.0-47.0); HEMOGLOBIN 11.6 g/dl (12.0-15.5); LYMPH # 1.5 10^3/uL (1.5-5.0); LYMPH % 30.6 % (24.0-44.0); MEAN CORPUSCULAR HEMOGLOBIN 28.3 pg (27.0-33.0); MEAN CORPUSCULAR HGB CONC 32.3 g/dl (32.0-36.5); MEAN CORPUSCULAR VOLUME 87.6 fl (80.0-96.0); MONO # 0.4 10^3/uL (0.0-0.8); MONO % 8.9 % (2.0-8.0); NEUTROPHILS # 2.8 10^3/uL (1.5-8.5); NEUTROPHILS % 55.7 % (36.0-66.0); PLATELET COUNT, AUTOMATED 225 10^3/uL (150-450)
[2024-05-14 07:49] VITALS: BP 100/58
[2024-05-14 07:51] LABS: VANCOMYCIN RANDOM 16.3 UG/ML
[2024-05-14 07:52] LABS: BLOOD UREA NITROGEN 10 MG/DL (9-23); CALCIUM LEVEL 8.9 MG/DL (8.3-10.6); CARBON DIOXIDE LEVEL 26 MMOL/L (20-31); CHLORIDE LEVEL 107 MMOL/L (98-107); GLOMERULAR FILTRATION RATE > 60.0 (>45); GLUCOSE, FASTING 102 MG/DL (74-106); POTASSIUM SERUM 4.7 MMOL/L (3.5-5.1); SODIUM LEVEL 138 MMOL/L (136-145)
[2024-05-14] MEDS ORDERED: BACT800T5 PO (10:56)
[2024-05-14] MEDS ORDERED: AMOX875T2 PO (10:56)
[2024-05-14] MEDS ORDERED: PROBCAP14 PO (10:56)
== END 2024-05-14 12:05 | DRG 698 ==
LOC: EDBD 13:55 → M ED 13:55 → M ED INP 16:19 → M MS5PR 18:00
PROVIDERS: ADMIT Student in an Organized Health Care Education/Training Program; ATTEND Internal Medicine
DX: T83.518A Infection and inflammatory reaction due to other urinary catheter, initial encounter (principal); A41.51 Sepsis due to Escherichia coli [E. coli]; G93.41 Metabolic encephalopathy; G10 Huntington's disease; K59.2 Neurogenic bowel, not elsewhere classified; Y84.6 Urinary catheterization as the cause of abnormal reaction of the patient, or of later complication, without mention of misadventure at the time of the procedure; E11.9 Type 2 diabetes mellitus without complications; F03.90 Unspecified dementia, unspecified severity, without behavioral disturbance, psychotic disturbance, mood disturbance, and anxiety; R33.9 Retention of urine, unspecified; E83.42 Hypomagnesemia; K59.81 Ogilvie syndrome; K59.09 Other constipation; F41.9 Anxiety disorder, unspecified; F32.A Depression, unspecified; Z87.440 Personal history of urinary (tract) infections; Z86.711 Personal history of pulmonary embolism; Z79.01 Long term (current) use of anticoagulants; Z79.82 Long term (current) use of aspirin; Z79.899 Other long term (current) drug therapy; Z88.8 Allergy status to other drugs, medicaments and biological substances

== ENCOUNTER → 2024-05-22 | Outpatient (REF) | payer MEDICARE, MEDICAID ==
[~2024-05-22] MED LIST changes: +ACET-907 PO; +BACI1CAP PO; +PROBCAP14 PO
[2024-05-22 11:23] LABS: HEMATOCRIT 38.5 % (36.0-47.0); HEMOGLOBIN 12.3 g/dl (12.0-15.5); MEAN CORPUSCULAR HEMOGLOBIN 28.3 pg (27.0-33.0); MEAN CORPUSCULAR HGB CONC 31.9 g/dl (32.0-36.5); MEAN CORPUSCULAR VOLUME 88.7 fl (80.0-96.0); PLATELET COUNT, AUTOMATED 230 10^3/uL (150-450); RED BLOOD COUNT 4.34 10^6/uL (4.00-5.40); WHITE BLOOD COUNT 4.9 10^3/uL (4.0-10.0)
[2024-05-22 11:54] LABS: BLOOD UREA NITROGEN 14 MG/DL (9-23); CALCIUM LEVEL 9.5 MG/DL (8.3-10.6); CARBON DIOXIDE LEVEL 26 MMOL/L (20-31); CHLORIDE LEVEL 102 MMOL/L (98-107); CREATININE FOR GFR 0.71 MG/DL (0.55-1.30); GLOMERULAR FILTRATION RATE > 60.0 (>45); GLUCOSE, FASTING 130 MG/DL (74-106); POTASSIUM SERUM 4.4 MMOL/L (3.5-5.1); SODIUM LEVEL 135 MMOL/L (136-145)
== END ==
LOC: SKLAB4 08:54
PROVIDERS: ATTEND Family Medicine
DX: A41.9 Sepsis, unspecified organism (principal)

== ENCOUNTER → 2024-09-25 | Outpatient (REF) | payer MEDICARE, MEDICAID ==
[2024-09-25 12:16] LABS: HEPATITIS B SURFACE ANTIGEN NEGATIVE (NEGATIVE)
[2024-09-25 12:29] LABS: HIV SCREEN CENTAUR SOURCE NEGATIVE (NEGATIVE)
== END ==
LOC: SKLAB4 10:23
PROVIDERS: ATTEND Family Medicine
DX: Z11.4 Encounter for screening for human immunodeficiency virus [HIV] (principal); Z11.59 Encounter for screening for other viral diseases; Z77.21 Contact with and (suspected) exposure to potentially hazardous body fluids; W46.0XXA Contact with hypodermic needle, initial encounter; Y92.129 Unspecified place in nursing home as the place of occurrence of the external cause

== ENCOUNTER 2024-10-05 22:00 | Inpatient (IN) | payer MEDICARE, MEDICAID ==
[~2024-10-05] VITALS: Ht 165.1 cm; Wt 108.8 kg
[2024-10-05 23:05] LABS: APPEARANCE, URINE CLOUDY (CLEAR); BACTERIA, URINE AUTO 1+ (NEGATIVE); BILIRUBIN, URINE AUTO NEGATIVE (NEGATIVE); BLOOD, URINE BLOOD 3+ (NEGATIVE); COLOR, URINE AMBER (YELLOW); GLUCOSE, URINE (UA) AUTO NEGATIVE (NEGATIVE); KETONE, URINE AUTO NEGATIVE (NEGATIVE); LEUKOCYTE ESTERASE, URINE AUTO 3+ (NEGATIVE); MUCUS, URINE SMALL (NEGATIVE); NITRITE, URINE AUTO NEGATIVE (NEGATIVE); PROTEIN, URINE AUTO 2+ mg/dL (NEGATIVE); RBC, URINE AUTO 70 /HPF (0-3); SQUAMOUS EPITHELIAL CELL UR AU 3 /HPF (0-6); TRANSITIONAL EPITHELIAL AUTO 2 /HPF; UROBILINOGEN, URINE AUTO 0.2 mg/dL (0.0-2.0); WBC, URINE AUTO TNTC /HPF (0-3)
[2024-10-05 23:07] LABS: BASO % 0.2 % (0.0-1.0); HEMOGLOBIN 11.5 g/dl (12.0-15.5); LYMPH # 0.4 10^3/uL (1.5-5.0); LYMPH % 2.2 % (24.0-44.0); MEAN CORPUSCULAR HEMOGLOBIN 29.2 pg (27.0-33.0); MEAN CORPUSCULAR HGB CONC 32.9 g/dl (32.0-36.5); MEAN CORPUSCULAR VOLUME 88.8 fl (80.0-96.0); MONO # 0.8 10^3/uL (0.0-0.8); MONO % 4.6 % (2.0-8.0); NEUTROPHILS # 15.5 10^3/uL (1.5-8.5); NEUTROPHILS % 92.3 % (36.0-66.0); PLATELET COUNT, AUTOMATED 239 10^3/uL (150-450); RED BLOOD COUNT 3.94 10^6/uL (4.00-5.40); WHITE BLOOD COUNT 16.8 10^3/uL (4.0-10.0)
[2024-10-05 23:19] LABS: INR 1.22; PARTIAL THROMBOPLASTIN TIME 35.7 SECONDS (24.8-34.2); PROTHROMBIN TIME 15.7 SECONDS (12.5-14.5)
[2024-10-05 23:27] LABS: CK-MB VALUE MASS < 1.0 NG/ML (<3.6)
[2024-10-05 23:29] LABS: ALKALINE PHOSPHATASE 85 U/L (35-104); ALT/SGPT < 9 U/L (7.0-40); AST/SGOT 14 U/L (<34); BILIRUBIN,DIRECT 0.2 MG/DL (<0.4); BILIRUBIN,TOTAL 0.6 MG/DL (0.3-1.2); BLOOD UREA NITROGEN 25 MG/DL (9-23); CALCIUM LEVEL 8.8 MG/DL (8.3-10.6); CARBON DIOXIDE LEVEL 26 MMOL/L (20-31); CHLORIDE LEVEL 104 MMOL/L (98-107); CREATININE FOR GFR 0.53 MG/DL (0.55-1.30); GLOMERULAR FILTRATION RATE > 60.0 (>45); GLUCOSE, FASTING 227 MG/DL (74-106); POTASSIUM SERUM 4.1 MMOL/L (3.5-5.1); SODIUM LEVEL 137 MMOL/L (136-145); TOTAL PROTEIN 6.1 G/DL (5.7-8.2)
[2024-10-05] MEDS: ACETAMINOPHEN *IV* 1,000 MG in IV 1 EA IV ONE (23:35)
[2024-10-05] MEDS: PIPERACILLIN/TAZOBACTAM SOD 4.5 GM in DEXTROSE 5% (D5W) ADV/MINI-BAG 50 ML IV ONE (23:36)
[2024-10-05] MEDS: NS 1,000 ML IV ONE (23:36)
[2024-10-05 23:47] LABS: CPK CREATINE PHOSPHOKINASE 41 U/L (34-145); MB/CK RELATIVE INDEX 2.43 (< OR =4)
[2024-10-05] MEDS ORDERED: ISOVUE-370 76% 100ML VIAL As Ordered ONE (23:48)
[2024-10-06] MEDS: NOREPINEPHRINE 4MG IN D5 250ML 4 MG in IV 1 EA IV SCH (00:50)
[2024-10-06] MEDS: NS 2,200 ML in IV 1 EA IV ONE (01:14)
[2024-10-06] MEDS ORDERED: MACR100C43 PO (03:04)
[2024-10-06] MEDS ORDERED: HOME MED LIST COMPLETE! XX SCH (03:10)
[2024-10-06 04:43] LABS: BASO % 0.2 % (0.0-1.0); EOS % 0.1 % (0.0-3.0); HEMATOCRIT 35.9 % (36.0-47.0); HEMOGLOBIN 11.4 g/dl (12.0-15.5); LYMPH # 1.1 10^3/uL (1.5-5.0); LYMPH % 6.4 % (24.0-44.0); MEAN CORPUSCULAR HEMOGLOBIN 28.6 pg (27.0-33.0); MEAN CORPUSCULAR HGB CONC 31.8 g/dl (32.0-36.5); MEAN CORPUSCULAR VOLUME 90.2 fl (80.0-96.0); MONO # 1.1 10^3/uL (0.0-0.8); MONO % 6.1 % (2.0-8.0); NEUTROPHILS % 86.8 % (36.0-66.0); PLATELET COUNT, AUTOMATED 197 10^3/uL (150-450); RED BLOOD COUNT 3.98 10^6/uL (4.00-5.40); WHITE BLOOD COUNT 17.3 10^3/uL (4.0-10.0)
[2024-10-06] MEDS ORDERED: ONDANSETRON 4MG 2ML VIAL IV PRN (04:45)
[2024-10-06 05:04] LABS: ALBUMIN 2.9 G/DL (3.2-5.2); ALKALINE PHOSPHATASE 81 U/L (35-104); ALT/SGPT < 9 U/L (7.0-40); AST/SGOT 12 U/L (<34); BILIRUBIN,TOTAL 0.7 MG/DL (0.3-1.2); BLOOD UREA NITROGEN 24 MG/DL (9-23); CALCIUM LEVEL 8.7 MG/DL (8.3-10.6); CARBON DIOXIDE LEVEL 27 MMOL/L (20-31); CHLORIDE LEVEL 104 MMOL/L (98-107); CREATININE FOR GFR 0.58 MG/DL (0.55-1.30); GLOMERULAR FILTRATION RATE > 60.0 (>45); GLUCOSE, FASTING 146 MG/DL (74-106); POTASSIUM SERUM 4.1 MMOL/L (3.5-5.1); SODIUM LEVEL 137 MMOL/L (136-145); TOTAL PROTEIN 6.2 G/DL (5.7-8.2)
[2024-10-06] MEDS: PIPERACILLIN/TAZOBACTAM SOD 3.375 GM in DEXTROSE 5% (D5W) ADV/MINI-BAG 50 ML IV SCH (06:28)
[2024-10-06] MEDS ORDERED: DEXTROSE 50% 50ML SYRINGE IV PRN ×2 (08:25→10:55)
[2024-10-06] MEDS ORDERED: GLUCAGON INJ 1MG VIAL SC PRN ×2 (08:25→10:55)
[2024-10-06] MEDS ORDERED: GLUCOSE 4 GM CHEW PO PRN ×2 (08:25→10:55)
[2024-10-06 09:00] VITALS: BP 118/54; TEMP 98.2; O2SAT 100
[2024-10-06] MEDS: MEMANTINE 5MG TABLET (NAMENDA) PO SCH (09:59)
[2024-10-06] MEDS: SIMETHICONE 80MG CHEW TAB PO SCH (09:59)
[2024-10-06] MEDS: NS 1,000 ML IV SCH (09:59)
[2024-10-06] MEDS: BISACODYL 10MG SUPP PR SCH (09:59)
[2024-10-06] MEDS: ASPIRIN 81MG CHEW TABLET PO SCH (09:59)
[2024-10-06] MEDS: ESCITALOPRAM OXALATE 10 MG TAB (LEXAPRO) PO SCH (09:59)
[2024-10-06 10:00] VITALS: O2SAT 99
[2024-10-06] MEDS: APIXABAN 5 MG TAB (ELIQUIS) PO SCH (10:00)
[2024-10-06 11:00] VITALS: O2SAT 97
[2024-10-06] MEDS ORDERED: PILL CUTTER 1 EACH XX ONE (11:58)
[2024-10-06 12:00] VITALS: BP 134/63; TEMP 98.2; O2SAT 100
[2024-10-06] MEDS ORDERED: INSULIN LISPRO (NovoLOG) PER UNIT SC SCH (12:00)
[2024-10-06] MEDS: INSULIN LISPRO (NovoLOG) PER UNIT SC SCH ×2 (12:00→21:00)
[2024-10-06] MEDS: busPIRone 10 MG TAB PO SCH (12:02)
[2024-10-06] MEDS: risperiDONE 0.5 MG TAB PO SCH (12:02)
[2024-10-06] MEDS: FLEET ENEMA PR SCH (12:52)
[2024-10-06 16:00] VITALS: BP 117/50; TEMP 98.4; O2SAT 99
[2024-10-06] MEDS ORDERED: ATROPINE SULF 1MG/10ML SYRINGE IV PRN (16:50)
[2024-10-06] MEDS: NEOSTIGMINE METHYLSULFATE INJ 2 MG in NS 50 ML IV ONE (19:55)
[2024-10-06 20:00] VITALS: BP 118/51; TEMP 98.6; O2SAT 97
[2024-10-06] MEDS: ENOXAPARIN 100MG/1ML SYRINGE (J1650 PER 10MG) SC SCH (21:47)
[2024-10-06] MEDS: LEVEMIR (INSULIN DETEMIR) 1 UNITS/0.01ML SC SCH (21:48)
[2024-10-07] VITALS: BP 104/50; TEMP 98.8; O2SAT 96
[2024-10-07 04:00] VITALS: BP 123/54; TEMP 98.8; O2SAT 96
[2024-10-07 05:03] LABS: HEMATOCRIT 36.1 % (36.0-47.0); HEMOGLOBIN 11.5 g/dl (12.0-15.5); MEAN CORPUSCULAR HGB CONC 31.9 g/dl (32.0-36.5); MEAN CORPUSCULAR VOLUME 90.9 fl (80.0-96.0); PLATELET COUNT, AUTOMATED 186 10^3/uL (150-450); RED BLOOD COUNT 3.97 10^6/uL (4.00-5.40); WHITE BLOOD COUNT 7.5 10^3/uL (4.0-10.0)
[2024-10-07 05:35] LABS: ALBUMIN 2.9 G/DL (3.2-5.2); ALKALINE PHOSPHATASE 69 U/L (35-104); ALT/SGPT < 9 U/L (7.0-40); AST/SGOT 12 U/L (<34); BILIRUBIN,TOTAL 0.7 MG/DL (0.3-1.2); BLOOD UREA NITROGEN 21 MG/DL (9-23); CALCIUM LEVEL 8.7 MG/DL (8.3-10.6); CARBON DIOXIDE LEVEL 24 MMOL/L (20-31); CHLORIDE LEVEL 109 MMOL/L (98-107); CREATININE FOR GFR 0.63 MG/DL (0.55-1.30); GLOMERULAR FILTRATION RATE > 60.0 (>45); GLUCOSE, FASTING 75 MG/DL (74-106); POTASSIUM SERUM 3.6 MMOL/L (3.5-5.1); SODIUM LEVEL 139 MMOL/L (136-145)
[2024-10-07 08:00] VITALS: BP 117/55; TEMP 98.8; O2SAT 96
[2024-10-07] MEDS: NEOSTIGMINE METHYLSULFATE IV ONE (10:52)
[2024-10-07] MEDS: NS IV ONE (10:52)
[2024-10-07 12:00] VITALS: BP 122/56; TEMP 99.5; O2SAT 96
[2024-10-07] MEDS: cefTRIAXone SOD 1 GM in DEXTROSE 5% (D5W) ADV/MINI-BAG 50 ML IV SCH (12:19)
[2024-10-07 16:00] VITALS: BP 114/51; TEMP 98.8; O2SAT 100
[2024-10-07 20:00] VITALS: BP 126/56; TEMP 99; O2SAT 99
[2024-10-08] VITALS: BP 102/45; TEMP 98.8; O2SAT 97
[2024-10-08 04:00] VITALS: BP 111/54; TEMP 98.2; O2SAT 99
[2024-10-08 05:01] LABS: BASO % 0.6 % (0.0-1.0); EOS # 0.1 10^3/uL (0.0-0.5); EOS % 2.4 % (0.0-3.0); HEMATOCRIT 31.7 % (36.0-47.0); HEMOGLOBIN 10.2 g/dl (12.0-15.5); LYMPH # 1.2 10^3/uL (1.5-5.0); LYMPH % 23.7 % (24.0-44.0); MEAN CORPUSCULAR HEMOGLOBIN 28.9 pg (27.0-33.0); MEAN CORPUSCULAR HGB CONC 32.2 g/dl (32.0-36.5); MEAN CORPUSCULAR VOLUME 89.8 fl (80.0-96.0); MONO # 0.5 10^3/uL (0.0-0.8); MONO % 8.9 % (2.0-8.0); NEUTROPHILS # 3.3 10^3/uL (1.5-8.5); NEUTROPHILS % 64.2 % (36.0-66.0); PLATELET COUNT, AUTOMATED 176 10^3/uL (150-450); RED BLOOD COUNT 3.53 10^6/uL (4.00-5.40); WHITE BLOOD COUNT 5.1 10^3/uL (4.0-10.0)
[2024-10-08 05:32] LABS: BLOOD UREA NITROGEN 14 MG/DL (9-23); CALCIUM LEVEL 7.7 MG/DL (8.3-10.6); CARBON DIOXIDE LEVEL 25 MMOL/L (20-31); CHLORIDE LEVEL 109 MMOL/L (98-107); CREATININE FOR GFR 0.58 MG/DL (0.55-1.30); GLOMERULAR FILTRATION RATE > 60.0 (>45); GLUCOSE, FASTING 105 MG/DL (74-106); MAGNESIUM LEVEL 1.6 MG/DL (1.8-2.4); SODIUM LEVEL 139 MMOL/L (136-145)
[2024-10-08] MEDS: MAG SULF 1GM/100ML (MAG RUN) 1 GM in IV 1 EA IV SCH (06:36)
[2024-10-08] MEDS: POTASSIUM CHLORIDE 10MEQ SR TABLET PO ONE (06:37)
[2024-10-08 08:00] VITALS: BP 135/56; TEMP 98.4; O2SAT 99
[2024-10-08] MEDS: MIRALAX *UNIT DOSE* 17GM PACKET PO SCH (09:34)
[2024-10-08 13:00] VITALS: BP 149/61; TEMP 99; O2SAT 99
[2024-10-08 16:00] VITALS: BP 139/64; TEMP 99.3; O2SAT 99
[2024-10-08 20:00] VITALS: BP 118/53; TEMP 98.8; O2SAT 98
[2024-10-09 00:05] VITALS: BP 127/57; TEMP 98.4; O2SAT 99
[2024-10-09 04:39] VITALS: BP 147/63; TEMP 98.1; O2SAT 99
[2024-10-09 04:59] LABS: BASO % 0.7 % (0.0-1.0); EOS # 0.1 10^3/uL (0.0-0.5); EOS % 2.7 % (0.0-3.0); HEMATOCRIT 33.3 % (36.0-47.0); HEMOGLOBIN 10.7 g/dl (12.0-15.5); LYMPH # 1.2 10^3/uL (1.5-5.0); LYMPH % 25.9 % (24.0-44.0); MEAN CORPUSCULAR HEMOGLOBIN 28.4 pg (27.0-33.0); MEAN CORPUSCULAR HGB CONC 32.1 g/dl (32.0-36.5); MEAN CORPUSCULAR VOLUME 88.3 fl (80.0-96.0); MONO # 0.5 10^3/uL (0.0-0.8); NEUTROPHILS # 2.7 10^3/uL (1.5-8.5); NEUTROPHILS % 60.3 % (36.0-66.0); PLATELET COUNT, AUTOMATED 180 10^3/uL (150-450); RED BLOOD COUNT 3.77 10^6/uL (4.00-5.40); WHITE BLOOD COUNT 4.5 10^3/uL (4.0-10.0)
[2024-10-09 05:16] LABS: BLOOD UREA NITROGEN 9 MG/DL (9-23); CALCIUM LEVEL 8.5 MG/DL (8.3-10.6); CARBON DIOXIDE LEVEL 29 MMOL/L (20-31); CHLORIDE LEVEL 107 MMOL/L (98-107); CREATININE FOR GFR 0.54 MG/DL (0.55-1.30); GLOMERULAR FILTRATION RATE > 60.0 (>45); GLUCOSE, FASTING 123 MG/DL (74-106); MAGNESIUM LEVEL 1.6 MG/DL (1.8-2.4); POTASSIUM SERUM 3.4 MMOL/L (3.5-5.1); SODIUM LEVEL 138 MMOL/L (136-145)
[2024-10-09] MEDS: MAG SULF 1GM/100ML (MAG RUN) 1 GM in IV 1 EA IV SCH (06:07)
[2024-10-09 08:00] VITALS: BP 149/64; TEMP 98.2; O2SAT 99
[2024-10-09] MEDS: POTASSIUM CHLORIDE 10MEQ SR TABLET PO ONE (08:01)
[2024-10-09] MEDS: CEFDINIR 300 MG CAP (OMNICEF) PO SCH (10:57)
[2024-10-09 12:00] VITALS: BP 146/60; TEMP 98.6; O2SAT 99
[2024-10-09 15:46] VITALS: BP 154/58; TEMP 97.5; O2SAT 100
[2024-10-09 20:05] VITALS: BP 130/41; TEMP 97.3; O2SAT 98
[2024-10-10 04:12] VITALS: BP 142/52; TEMP 97.2; O2SAT 96
[2024-10-10 06:21] LABS: BASO % 0.5 % (0.0-1.0); EOS # 0.1 10^3/uL (0.0-0.5); EOS % 3.1 % (0.0-3.0); HEMATOCRIT 33.6 % (36.0-47.0); HEMOGLOBIN 10.8 g/dl (12.0-15.5); LYMPH # 1.1 10^3/uL (1.5-5.0); LYMPH % 25.2 % (24.0-44.0); MEAN CORPUSCULAR HEMOGLOBIN 28.7 pg (27.0-33.0); MEAN CORPUSCULAR HGB CONC 32.1 g/dl (32.0-36.5); MEAN CORPUSCULAR VOLUME 89.4 fl (80.0-96.0); MONO # 0.4 10^3/uL (0.0-0.8); MONO % 10.6 % (2.0-8.0); NEUTROPHILS # 2.5 10^3/uL (1.5-8.5); NEUTROPHILS % 60.4 % (36.0-66.0); PLATELET COUNT, AUTOMATED 187 10^3/uL (150-450); RED BLOOD COUNT 3.76 10^6/uL (4.00-5.40); WHITE BLOOD COUNT 4.2 10^3/uL (4.0-10.0)
[2024-10-10 06:42] LABS: BLOOD UREA NITROGEN 6 MG/DL (9-23); CALCIUM LEVEL 8.5 MG/DL (8.3-10.6); CARBON DIOXIDE LEVEL 28 MMOL/L (20-31); CHLORIDE LEVEL 106 MMOL/L (98-107); CREATININE FOR GFR 0.47 MG/DL (0.55-1.30); GLOMERULAR FILTRATION RATE > 60.0 (>45); GLUCOSE, FASTING 104 MG/DL (74-106); MAGNESIUM LEVEL 1.6 MG/DL (1.8-2.4); POTASSIUM SERUM 3.6 MMOL/L (3.5-5.1); SODIUM LEVEL 139 MMOL/L (136-145)
[2024-10-10 08:00] VITALS: BP 163/50; TEMP 97.2; O2SAT 98
[2024-10-10] MEDS: MAG SULF 1GM/100ML (MAG RUN) 1 GM in IV 1 EA IV SCH (08:47)
[2024-10-10] MEDS: POTASSIUM CHLORIDE 10MEQ SR TABLET PO ONE (08:48)
[2024-10-10] MEDS: MAGNESIUM OXIDE 400MG TAB (MAG-OX) PO SCH (08:49)
[2024-10-10 12:00] VITALS: BP 103/42; TEMP 97.3; O2SAT 99
[2024-10-10 16:00] VITALS: BP 128/59; TEMP 97.3; O2SAT 100
[2024-10-10 19:57] VITALS: BP 122/56; TEMP 97.3; O2SAT 98
[2024-10-11] VITALS: BP 115/79; TEMP 97.7; O2SAT 95
[2024-10-11 03:58] VITALS: BP 110/49; TEMP 97.3; O2SAT 96
[2024-10-11 05:39] LABS: BASO % 0.6 % (0.0-1.0); EOS # 0.1 10^3/uL (0.0-0.5); EOS % 2.4 % (0.0-3.0); HEMATOCRIT 33.9 % (36.0-47.0); HEMOGLOBIN 10.9 g/dl (12.0-15.5); LYMPH # 1.1 10^3/uL (1.5-5.0); LYMPH % 20.6 % (24.0-44.0); MEAN CORPUSCULAR HEMOGLOBIN 28.5 pg (27.0-33.0); MEAN CORPUSCULAR HGB CONC 32.2 g/dl (32.0-36.5); MEAN CORPUSCULAR VOLUME 88.5 fl (80.0-96.0); MONO # 0.5 10^3/uL (0.0-0.8); MONO % 9.8 % (2.0-8.0); NEUTROPHILS # 3.5 10^3/uL (1.5-8.5); NEUTROPHILS % 66.4 % (36.0-66.0); PLATELET COUNT, AUTOMATED 192 10^3/uL (150-450); RED BLOOD COUNT 3.83 10^6/uL (4.00-5.40); WHITE BLOOD COUNT 5.3 10^3/uL (4.0-10.0)
[2024-10-11 06:03] LABS: BLOOD UREA NITROGEN 6 MG/DL (9-23); CALCIUM LEVEL 8.7 MG/DL (8.3-10.6); CARBON DIOXIDE LEVEL 27 MMOL/L (20-31); CHLORIDE LEVEL 102 MMOL/L (98-107); CREATININE FOR GFR 0.45 MG/DL (0.55-1.30); GLOMERULAR FILTRATION RATE > 60.0 (>45); GLUCOSE, FASTING 133 MG/DL (74-106); MAGNESIUM LEVEL 1.5 MG/DL (1.8-2.4); SODIUM LEVEL 135 MMOL/L (136-145)
[2024-10-11 08:00] VITALS: BP 119/49; TEMP 97.3; O2SAT 98
[2024-10-11] MEDS: MAG SULF 1GM/100ML (MAG RUN) 1 GM in IV 1 EA IV SCH (08:13)
[2024-10-11] MEDS ORDERED: BISACODYL 10MG SUPP PR PRN (09:40)
[2024-10-11 12:00] VITALS: BP 131/62; TEMP 97.3; O2SAT 99
[2024-10-11] MEDS: FLEET ENEMA PR PRN (15:48)
[2024-10-11 16:00] VITALS: BP 130/51; TEMP 97.5; O2SAT 98
[2024-10-11 20:00] VITALS: BP 127/51; TEMP 97.3; O2SAT 97
[2024-10-11] MEDS: MAGNESIUM OXIDE 400MG TAB (MAG-OX) PO SCH (21:40)
[2024-10-12] VITALS (8 sets, daily range): BP systolic 110–130; BP diastolic 43–76; TEMP 97–101.3; O2SAT 92–100
[2024-10-12 06:07] LABS: BASO % 0.5 % (0.0-1.0); EOS # 0.1 10^3/uL (0.0-0.5); EOS % 2.4 % (0.0-3.0); HEMATOCRIT 33.1 % (36.0-47.0); HEMOGLOBIN 10.8 g/dl (12.0-15.5); LYMPH % 18.5 % (24.0-44.0); MEAN CORPUSCULAR HEMOGLOBIN 28.6 pg (27.0-33.0); MEAN CORPUSCULAR HGB CONC 32.6 g/dl (32.0-36.5); MEAN CORPUSCULAR VOLUME 87.8 fl (80.0-96.0); MONO # 0.6 10^3/uL (0.0-0.8); MONO % 10.3 % (2.0-8.0); NEUTROPHILS # 3.8 10^3/uL (1.5-8.5); NEUTROPHILS % 67.9 % (36.0-66.0); PLATELET COUNT, AUTOMATED 187 10^3/uL (150-450); RED BLOOD COUNT 3.77 10^6/uL (4.00-5.40); WHITE BLOOD COUNT 5.5 10^3/uL (4.0-10.0)
[2024-10-12 06:48] LABS: BLOOD UREA NITROGEN < 5 MG/DL (9-23); CALCIUM LEVEL 8.8 MG/DL (8.3-10.6); CARBON DIOXIDE LEVEL 29 MMOL/L (20-31); CHLORIDE LEVEL 105 MMOL/L (98-107); GLOMERULAR FILTRATION RATE > 60.0 (>45); GLUCOSE, FASTING 131 MG/DL (74-106); MAGNESIUM LEVEL 1.6 MG/DL (1.8-2.4); POTASSIUM SERUM 3.5 MMOL/L (3.5-5.1); SODIUM LEVEL 137 MMOL/L (136-145)
[2024-10-12] MEDS: MAG SULF 1GM/100ML (MAG RUN) 1 GM in IV 1 EA IV SCH (08:29)
[2024-10-12] MEDS: MAGNESIUM OXIDE 400MG TAB (MAG-OX) PO SCH (08:30)
[2024-10-12] MEDS: POTASSIUM CHLORIDE 10MEQ SR TABLET PO ONE (08:32)
[2024-10-12] MEDS: ACETAMINOPHEN 325 MG TAB PO PRN (15:34)
[2024-10-12 16:40] LABS: BASO % 0.4 % (0.0-1.0); EOS # 0.1 10^3/uL (0.0-0.5); EOS % 0.9 % (0.0-3.0); HEMOGLOBIN 11.7 g/dl (12.0-15.5); LYMPH # 0.7 10^3/uL (1.5-5.0); LYMPH % 9.2 % (24.0-44.0); MEAN CORPUSCULAR HEMOGLOBIN 29.3 pg (27.0-33.0); MEAN CORPUSCULAR HGB CONC 32.5 g/dl (32.0-36.5); MONO # 0.6 10^3/uL (0.0-0.8); MONO % 7.4 % (2.0-8.0); NEUTROPHILS # 6.4 10^3/uL (1.5-8.5); NEUTROPHILS % 81.8 % (36.0-66.0); PLATELET COUNT, AUTOMATED 220 10^3/uL (150-450); WHITE BLOOD COUNT 7.8 10^3/uL (4.0-10.0)
[2024-10-12] MEDS: NS 1,000 ML IV ONE (16:51)
[2024-10-12] MEDS: PIPERACILLIN/TAZOBACTAM SOD 3.375 GM in DEXTROSE 5% (D5W) ADV/MINI-BAG 50 ML IV SCH (17:01)
[2024-10-12 17:04] LABS: ALBUMIN 2.7 G/DL (3.2-5.2); ALKALINE PHOSPHATASE 80 U/L (35-104); ALT/SGPT < 9 U/L (7.0-40); AST/SGOT < 8 U/L (<34); BILIRUBIN,TOTAL 0.5 MG/DL (0.3-1.2); BLOOD UREA NITROGEN 6 MG/DL (9-23); CALCIUM LEVEL 8.8 MG/DL (8.3-10.6); CARBON DIOXIDE LEVEL 32 MMOL/L (20-31); CHLORIDE LEVEL 102 MMOL/L (98-107); CREATININE FOR GFR 0.57 MG/DL (0.55-1.30); GLOMERULAR FILTRATION RATE > 60.0 (>45); GLUCOSE, FASTING 159 MG/DL (74-106); MAGNESIUM LEVEL 1.9 MG/DL (1.8-2.4); POTASSIUM SERUM 3.8 MMOL/L (3.5-5.1); SODIUM LEVEL 135 MMOL/L (136-145); TOTAL PROTEIN 5.9 G/DL (5.7-8.2)
[2024-10-12 17:11] LABS: PROCALCITONIN 0.06 ng/ml
[2024-10-12] MEDS: NS 1,000 ML IV SCH (18:19)
[2024-10-13 00:07] VITALS: BP 111/39; TEMP 98.4; O2SAT 97
[2024-10-13 04:00] VITALS: BP 145/48; TEMP 98.9; O2SAT 99
[2024-10-13 07:36] LABS: BASO % 0.4 % (0.0-1.0); EOS # 0.2 10^3/uL (0.0-0.5); EOS % 3.1 % (0.0-3.0); HEMATOCRIT 33.3 % (36.0-47.0); HEMOGLOBIN 10.8 g/dl (12.0-15.5); LYMPH # 0.8 10^3/uL (1.5-5.0); LYMPH % 14.7 % (24.0-44.0); MEAN CORPUSCULAR HEMOGLOBIN 28.9 pg (27.0-33.0); MEAN CORPUSCULAR HGB CONC 32.4 g/dl (32.0-36.5); MONO # 0.6 10^3/uL (0.0-0.8); MONO % 10.8 % (2.0-8.0); NEUTROPHILS # 3.9 10^3/uL (1.5-8.5); NEUTROPHILS % 70.8 % (36.0-66.0); PLATELET COUNT, AUTOMATED 184 10^3/uL (150-450); RED BLOOD COUNT 3.74 10^6/uL (4.00-5.40); WHITE BLOOD COUNT 5.5 10^3/uL (4.0-10.0)
[2024-10-13 08:00] VITALS: BP 146/49; TEMP 99; O2SAT 99
[2024-10-13 08:07] LABS: BLOOD UREA NITROGEN 6 MG/DL (9-23); CALCIUM LEVEL 8.8 MG/DL (8.3-10.6); CARBON DIOXIDE LEVEL 30 MMOL/L (20-31); CHLORIDE LEVEL 102 MMOL/L (98-107); CREATININE FOR GFR 0.56 MG/DL (0.55-1.30); GLOMERULAR FILTRATION RATE > 60.0 (>45); GLUCOSE, FASTING 146 MG/DL (74-106); MAGNESIUM LEVEL 1.7 MG/DL (1.8-2.4); SODIUM LEVEL 137 MMOL/L (136-145)
[2024-10-13] MEDS: MAG SULF 1GM/100ML (MAG RUN) 1 GM in IV 1 EA IV SCH (10:55)
[2024-10-13 12:00] VITALS: BP 143/40; TEMP 97.2; O2SAT 99
[2024-10-13] MEDS: GOLYTELY SOLN 4000 ML BTL PO ONE (12:11)
[2024-10-13 16:00] VITALS: BP 134/42; TEMP 97.5; O2SAT 93
[2024-10-13 20:37] VITALS: BP 127/43; TEMP 98.2; O2SAT 98
[2024-10-14] VITALS (9 sets, daily range): BP systolic 77–154; BP diastolic 42–59; TEMP 97.3–98.1; O2SAT 95–99
[2024-10-14 06:09] LABS: BASO % 0.4 % (0.0-1.0); EOS # 0.2 10^3/uL (0.0-0.5); EOS % 4.5 % (0.0-3.0); HEMATOCRIT 34.2 % (36.0-47.0); HEMOGLOBIN 10.9 g/dl (12.0-15.5); LYMPH # 1.2 10^3/uL (1.5-5.0); LYMPH % 24.6 % (24.0-44.0); MEAN CORPUSCULAR HEMOGLOBIN 28.8 pg (27.0-33.0); MEAN CORPUSCULAR HGB CONC 31.9 g/dl (32.0-36.5); MEAN CORPUSCULAR VOLUME 90.2 fl (80.0-96.0); MONO # 0.5 10^3/uL (0.0-0.8); MONO % 10.7 % (2.0-8.0); NEUTROPHILS # 2.9 10^3/uL (1.5-8.5); NEUTROPHILS % 59.2 % (36.0-66.0); PLATELET COUNT, AUTOMATED 213 10^3/uL (150-450); RED BLOOD COUNT 3.79 10^6/uL (4.00-5.40); WHITE BLOOD COUNT 4.9 10^3/uL (4.0-10.0)
[2024-10-14 06:37] LABS: BLOOD UREA NITROGEN 6 MG/DL (9-23); CALCIUM LEVEL 9.1 MG/DL (8.3-10.6); CARBON DIOXIDE LEVEL 32 MMOL/L (20-31); CHLORIDE LEVEL 102 MMOL/L (98-107); CREATININE FOR GFR 0.52 MG/DL (0.55-1.30); GLOMERULAR FILTRATION RATE > 60.0 (>45); GLUCOSE, FASTING 131 MG/DL (74-106); MAGNESIUM LEVEL 1.8 MG/DL (1.8-2.4); POTASSIUM SERUM 4.3 MMOL/L (3.5-5.1); SODIUM LEVEL 138 MMOL/L (136-145)
[2024-10-14] MEDS: LR 1,000 ML IV ONE (21:49)
[2024-10-14] MEDS: LR 500 ML IV ONE (21:55)
[2024-10-15] VITALS (10 sets, daily range): BP systolic 95–144; BP diastolic 43–64; TEMP 97–99; O2SAT 93–98
[2024-10-15 05:54] LABS: BASO % 0.8 % (0.0-1.0); EOS # 0.1 10^3/uL (0.0-0.5); EOS % 3.8 % (0.0-3.0); HEMATOCRIT 34.2 % (36.0-47.0); HEMOGLOBIN 10.9 g/dl (12.0-15.5); LYMPH # 1.1 10^3/uL (1.5-5.0); MEAN CORPUSCULAR HEMOGLOBIN 28.5 pg (27.0-33.0); MEAN CORPUSCULAR HGB CONC 31.9 g/dl (32.0-36.5); MEAN CORPUSCULAR VOLUME 89.5 fl (80.0-96.0); MONO # 0.4 10^3/uL (0.0-0.8); MONO % 11.8 % (2.0-8.0); NEUTROPHILS # 1.9 10^3/uL (1.5-8.5); NEUTROPHILS % 52.3 % (36.0-66.0); PLATELET COUNT, AUTOMATED 215 10^3/uL (150-450); RED BLOOD COUNT 3.82 10^6/uL (4.00-5.40); WHITE BLOOD COUNT 3.7 10^3/uL (4.0-10.0)
[2024-10-15 06:39] LABS: BLOOD UREA NITROGEN 6 MG/DL (9-23); CALCIUM LEVEL 8.9 MG/DL (8.3-10.6); CARBON DIOXIDE LEVEL 28 MMOL/L (20-31); CHLORIDE LEVEL 104 MMOL/L (98-107); GLOMERULAR FILTRATION RATE > 60.0 (>45); GLUCOSE, FASTING 103 MG/DL (74-106); MAGNESIUM LEVEL 1.6 MG/DL (1.8-2.4); POTASSIUM SERUM 3.9 MMOL/L (3.5-5.1); SODIUM LEVEL 137 MMOL/L (136-145)
[2024-10-15] MEDS ORDERED: LIDOCAINE 2% 100MG/5ML SDV (FOR ANES.) As Ordered ONE (08:14)
[2024-10-15] MEDS ORDERED: propofoL 200 MG/20 ML VIAL As Ordered ONE (08:14)
[2024-10-15] MEDS ORDERED: fentaNYL 100 MCG/2 ML INJECTION As Ordered ONE (08:14)
[2024-10-15] MEDS ORDERED: ROCURONIUM BROMIDE 50MG/5ML VIAL As Ordered ONE (08:14)
[2024-10-15] MEDS ORDERED: MIDAZOLAM INJ 2MG/2ML VIAL As Ordered ONE (08:15)
[2024-10-15] MEDS: MAG SULF 1GM/100ML (MAG RUN) 1 GM in IV 1 EA IV SCH (09:00)
[2024-10-15] MEDS: ceFAZolin 2 GM/D5W 50 ML IV BAG As Ordered ONE (09:10)
[2024-10-15] MEDS: metroNIDAZOLE/NACL 500MG(5MG/ML) 100ML BAG As Ordered ONE (09:25)
[2024-10-15] MEDS ORDERED: PHENYLephrine 500MCG 5ML (100MCG/ML) SYRINGE As Ordered ONE (09:31)
[2024-10-15] MEDS ORDERED: ePHEDrine SULFATE 25 MG/5 ML(5MG/ML) SYRINGE As Ordered ONE (09:31)
[2024-10-15] MEDS ORDERED: ONDANSETRON 4MG 2ML VIAL As Ordered ONE (09:34)
[2024-10-15] MEDS ORDERED: ACETAMINOPHEN 1000MG/100ML IV BAG As Ordered ONE (09:39)
[2024-10-15] MEDS ORDERED: KETOROLAC 60MG 2ML VIAL As Ordered ONE (09:51)
[2024-10-15] MEDS ORDERED: ONDANSETRON 4MG 2ML VIAL IV PRN (10:15)
[2024-10-15] MEDS ORDERED: fentaNYL 100 MCG/2 ML INJECTION IV PRN (10:15)
[2024-10-15] MEDS ORDERED: HYDROMORPHONE HCL 0.5 MG/ 0.5 ML SYRINGE IV PRN (10:15)
[2024-10-15] MEDS ORDERED: oxyCODONE 5MG TAB PO PRN (10:15)
[2024-10-15] MEDS: NS 1,000 ML IV SCH (10:15)
[2024-10-15] MEDS: MAG SULF 1GM/100ML (MAG RUN) 1 GM in IV 1 EA IV ONE (13:37)
[2024-10-16] VITALS: BP 97/43; TEMP 97; O2SAT 93
[2024-10-16 04:00] VITALS: BP 99/44; TEMP 97.3; O2SAT 93
[2024-10-16 07:58] LABS: BASO % 0.6 % (0.0-1.0); EOS # 0.1 10^3/uL (0.0-0.5); EOS % 2.3 % (0.0-3.0); HEMATOCRIT 31.4 % (36.0-47.0); HEMOGLOBIN 10.1 g/dl (12.0-15.5); LYMPH # 1.2 10^3/uL (1.5-5.0); LYMPH % 24.4 % (24.0-44.0); MEAN CORPUSCULAR HEMOGLOBIN 28.7 pg (27.0-33.0); MEAN CORPUSCULAR HGB CONC 32.2 g/dl (32.0-36.5); MEAN CORPUSCULAR VOLUME 89.2 fl (80.0-96.0); MONO # 0.5 10^3/uL (0.0-0.8); MONO % 9.4 % (2.0-8.0); NEUTROPHILS % 63.1 % (36.0-66.0); PLATELET COUNT, AUTOMATED 207 10^3/uL (150-450); RED BLOOD COUNT 3.52 10^6/uL (4.00-5.40); WHITE BLOOD COUNT 4.8 10^3/uL (4.0-10.0)
[2024-10-16 08:00] VITALS: BP 137/52; TEMP 97.9; O2SAT 98
[2024-10-16 08:32] LABS: BLOOD UREA NITROGEN 10 MG/DL (9-23); CALCIUM LEVEL 8.9 MG/DL (8.3-10.6); CARBON DIOXIDE LEVEL 32 MMOL/L (20-31); CHLORIDE LEVEL 101 MMOL/L (98-107); CREATININE FOR GFR 0.55 MG/DL (0.55-1.30); GLOMERULAR FILTRATION RATE > 60.0 (>45); GLUCOSE, FASTING 132 MG/DL (74-106); POTASSIUM SERUM 3.5 MMOL/L (3.5-5.1); SODIUM LEVEL 137 MMOL/L (136-145)
[2024-10-16] MEDS: NS 1,000 ML IV SCH (08:46)
[2024-10-16] MEDS: SENOKOT S TAB PO SCH (09:00)
[2024-10-16 16:00] VITALS: BP 130/44; TEMP 97.3; O2SAT 98
[2024-10-16 20:12] VITALS: BP 123/42; TEMP 97.5; O2SAT 96
[2024-10-17] VITALS: BP 92/52; TEMP 97.3; O2SAT 97
[2024-10-17 04:11] VITALS: BP 97/51; TEMP 97; O2SAT 96
[2024-10-17 06:37] LABS: BLOOD UREA NITROGEN 11 MG/DL (9-23); CALCIUM LEVEL 8.8 MG/DL (8.3-10.6); CARBON DIOXIDE LEVEL 29 MMOL/L (20-31); CHLORIDE LEVEL 103 MMOL/L (98-107); CREATININE FOR GFR 0.55 MG/DL (0.55-1.30); GLOMERULAR FILTRATION RATE > 60.0 (>45); GLUCOSE, FASTING 131 MG/DL (74-106); MAGNESIUM LEVEL 1.5 MG/DL (1.8-2.4); POTASSIUM SERUM 3.6 MMOL/L (3.5-5.1); SODIUM LEVEL 137 MMOL/L (136-145)
[2024-10-17 08:00] VITALS: BP 118/53; TEMP 97.5; O2SAT 95
[2024-10-17] MEDS: POTASSIUM CHLORIDE 10MEQ SR TABLET PO ONE (08:23)
[2024-10-17] MEDS: MAG SULF 1GM/100ML (MAG RUN) 1 GM in IV 1 EA IV SCH (08:27)
[2024-10-17] MEDS: NS 1,000 ML IV SCH (11:58)
[2024-10-17 12:00] VITALS: BP 116/46; TEMP 97.3; O2SAT 95
== END 2024-10-17 14:16 | DRG 981 ==
LOC: M ED 22:00 → EDBD 22:00 → M ED INP 10-06 04:43 → M ICU 10-06 08:57 → M MSPAV 10-09 15:44
PROVIDERS: ADMIT Student in an Organized Health Care Education/Training Program; ATTEND Student in an Organized Health Care Education/Training Program
PROC: 0D1B4Z4 Bypass Ileum to Cutaneous, Percutaneous Endoscopic Approach (ICD-10-PCS; principal; 2024-10-15 09:15)
DX: T83.511A Infection and inflammatory reaction due to indwelling urethral catheter, initial encounter (principal); A41.9 Sepsis, unspecified organism; R65.20 Severe sepsis without septic shock; G93.41 Metabolic encephalopathy; G10 Huntington's disease; J98.11 Atelectasis; K56.7 Ileus, unspecified; Y84.6 Urinary catheterization as the cause of abnormal reaction of the patient, or of later complication, without mention of misadventure at the time of the procedure; F03.A0 Unspecified dementia, mild, without behavioral disturbance, psychotic disturbance, mood disturbance, and anxiety; Z86.711 Personal history of pulmonary embolism; E11.9 Type 2 diabetes mellitus without complications; E87.6 Hypokalemia; E83.42 Hypomagnesemia; B96.4 Proteus (mirabilis) (morganii) as the cause of diseases classified elsewhere; K59.09 Other constipation; N39.0 Urinary tract infection, site not specified; R09.02 Hypoxemia; F41.9 Anxiety disorder, unspecified; F32.A Depression, unspecified; K59.81 Ogilvie syndrome; Z79.01 Long term (current) use of anticoagulants; Z79.82 Long term (current) use of aspirin; Z79.899 Other long term (current) drug therapy; Z88.8 Allergy status to other drugs, medicaments and biological substances; Z79.4 Long term (current) use of insulin

== ENCOUNTER → 2024-10-19 | Outpatient (REF) | payer MEDICARE, MEDICAID ==
[~2024-10-19] MED LIST changes: +MACR100C43 PO
[2024-10-19 20:20] LABS: HEMATOCRIT 38.4 % (36.0-47.0); HEMOGLOBIN 12.4 g/dl (12.0-15.5); MEAN CORPUSCULAR HEMOGLOBIN 28.6 pg (27.0-33.0); MEAN CORPUSCULAR HGB CONC 32.3 g/dl (32.0-36.5); MEAN CORPUSCULAR VOLUME 88.5 fl (80.0-96.0); PLATELET COUNT, AUTOMATED 300 10^3/uL (150-450); RED BLOOD COUNT 4.34 10^6/uL (4.00-5.40); WHITE BLOOD COUNT 7.9 10^3/uL (4.0-10.0)
[2024-10-19 20:45] LABS: ALBUMIN 2.7 G/DL (3.2-5.2); ALKALINE PHOSPHATASE 70 U/L (35-104); ALT/SGPT 12 U/L (7.0-40); AST/SGOT 10 U/L (<34); BILIRUBIN,TOTAL 0.6 MG/DL (0.3-1.2); BLOOD UREA NITROGEN 13 MG/DL (9-23); CALCIUM LEVEL 9.4 MG/DL (8.3-10.6); CARBON DIOXIDE LEVEL 31 MMOL/L (20-31); CHLORIDE LEVEL 100 MMOL/L (98-107); CREATININE FOR GFR 0.47 MG/DL (0.55-1.30); GLOMERULAR FILTRATION RATE > 60.0 (>45); GLUCOSE, FASTING 179 MG/DL (74-106); POTASSIUM SERUM 4.1 MMOL/L (3.5-5.1); SODIUM LEVEL 138 MMOL/L (136-145); TOTAL PROTEIN 6.2 G/DL (5.7-8.2)
== END ==
LOC: SKLAB4 15:39
PROVIDERS: ATTEND Internal Medicine
DX: K56.0 Paralytic ileus (principal); R11.2 Nausea with vomiting, unspecified

== ENCOUNTER → 2024-10-21 | Outpatient (REF) | payer MEDICARE, MEDICAID ==
[2024-10-21 13:17] LABS: HEMATOCRIT 39.9 % (36.0-47.0); HEMOGLOBIN 13.1 g/dl (12.0-15.5); MEAN CORPUSCULAR HEMOGLOBIN 28.8 pg (27.0-33.0); MEAN CORPUSCULAR HGB CONC 32.8 g/dl (32.0-36.5); MEAN CORPUSCULAR VOLUME 87.7 fl (80.0-96.0); PLATELET COUNT, AUTOMATED 330 10^3/uL (150-450); RED BLOOD COUNT 4.55 10^6/uL (4.00-5.40); WHITE BLOOD COUNT 8.5 10^3/uL (4.0-10.0)
[2024-10-21 13:43] LABS: ALKALINE PHOSPHATASE 69 U/L (35-104); ALT/SGPT 11 U/L (7.0-40); AST/SGOT 11 U/L (<34); BILIRUBIN,TOTAL 0.7 MG/DL (0.3-1.2); BLOOD UREA NITROGEN 19 MG/DL (9-23); CALCIUM LEVEL 9.6 MG/DL (8.3-10.6); CARBON DIOXIDE LEVEL 35 MMOL/L (20-31); CHLORIDE LEVEL 96 MMOL/L (98-107); CREATININE FOR GFR 0.52 MG/DL (0.55-1.30); GLOMERULAR FILTRATION RATE > 60.0 (>45); GLUCOSE, FASTING 173 MG/DL (74-106); POTASSIUM SERUM 3.7 MMOL/L (3.5-5.1); SODIUM LEVEL 139 MMOL/L (136-145); TOTAL PROTEIN 6.5 G/DL (5.7-8.2)
== END ==
LOC: SKLAB4 09:19
PROVIDERS: ATTEND Family Medicine
DX: R11.10 Vomiting, unspecified (principal); K56.600 Partial intestinal obstruction, unspecified as to cause

== ENCOUNTER → 2024-10-21 | Outpatient (REF) | payer MEDICARE, MEDICAID | LOC: SKLAB4 09:24 | PROVIDERS: ATTEND Family Medicine | DX: R11.10 Vomiting, unspecified (principal); Z53.9 Procedure and treatment not carried out, unspecified reason ==

== ENCOUNTER → 2024-10-21 | Outpatient (CLI) | payer MEDICARE, MEDICAID | LOC: M RAD 11:15 | PROVIDERS: ATTEND Nurse Practitioner Adult Health | DX: K56.600 Partial intestinal obstruction, unspecified as to cause (principal) ==

== ENCOUNTER → 2024-10-29 | Outpatient (REF) | payer MEDICARE, MEDICAID ==
[2024-10-29 09:42] LABS: HEMATOCRIT 35.1 % (36.0-47.0); HEMOGLOBIN 11.3 g/dl (12.0-15.5); MEAN CORPUSCULAR HEMOGLOBIN 28.8 pg (27.0-33.0); MEAN CORPUSCULAR HGB CONC 32.2 g/dl (32.0-36.5); MEAN CORPUSCULAR VOLUME 89.3 fl (80.0-96.0); PLATELET COUNT, AUTOMATED 262 10^3/uL (150-450); RED BLOOD COUNT 3.93 10^6/uL (4.00-5.40); WHITE BLOOD COUNT 6.6 10^3/uL (4.0-10.0)
[2024-10-29 09:55] LABS: BLOOD UREA NITROGEN 25 MG/DL (9-23); CALCIUM LEVEL 9.4 MG/DL (8.3-10.6); CARBON DIOXIDE LEVEL 36 MMOL/L (20-31); CHLORIDE LEVEL 96 MMOL/L (98-107); CREATININE FOR GFR 0.56 MG/DL (0.55-1.30); GLOMERULAR FILTRATION RATE > 60.0 (>45); GLUCOSE, FASTING 157 MG/DL (74-106); MAGNESIUM LEVEL 1.6 MG/DL (1.8-2.4); POTASSIUM SERUM 3.4 MMOL/L (3.5-5.1); SODIUM LEVEL 138 MMOL/L (136-145)
== END ==
LOC: SKLAB4 06:44
PROVIDERS: ATTEND Family Medicine
DX: Z93.2 Ileostomy status (principal); Z79.899 Other long term (current) drug therapy

== ENCOUNTER → 2024-11-05 | Outpatient (REF) | payer MEDICARE, MEDICAID ==
[~2024-11-05] MED LIST changes: +AUGM500T34 PO; +FAMO40TA3 PO; +IPRA0.00 INH; +MED REC COMMENT; +METO10TA2 PO; +PROC25SU27 PR; +THERTAB52 PO; +VITA500045 PO
[2024-11-05 08:54] LABS: HEMATOCRIT 40.2 % (36.0-47.0); HEMOGLOBIN 12.8 g/dl (12.0-15.5); MEAN CORPUSCULAR HGB CONC 31.8 g/dl (32.0-36.5); PLATELET COUNT, AUTOMATED 247 10^3/uL (150-450); RED BLOOD COUNT 4.57 10^6/uL (4.00-5.40); WHITE BLOOD COUNT 5.1 10^3/uL (4.0-10.0)
[2024-11-05 09:14] LABS: ALBUMIN 3.3 G/DL (3.2-5.2); ALKALINE PHOSPHATASE 99 U/L (35-104); ALT/SGPT 35 U/L (7.0-40); AST/SGOT 18 U/L (<34); BILIRUBIN,TOTAL 0.6 MG/DL (0.3-1.2); BLOOD UREA NITROGEN 25 MG/DL (9-23); CALCIUM LEVEL 9.5 MG/DL (8.3-10.6); CARBON DIOXIDE LEVEL 31 MMOL/L (20-31); CHLORIDE LEVEL 99 MMOL/L (98-107); CREATININE FOR GFR 0.44 MG/DL (0.55-1.30); GLOMERULAR FILTRATION RATE > 60.0 (>45); GLUCOSE, FASTING 148 MG/DL (74-106); POTASSIUM SERUM 3.6 MMOL/L (3.5-5.1); SODIUM LEVEL 139 MMOL/L (136-145); TOTAL PROTEIN 6.6 G/DL (5.7-8.2)
== END ==
LOC: SKLAB4 07:00
PROVIDERS: ATTEND Family Medicine
DX: E11.9 Type 2 diabetes mellitus without complications (principal)

== ENCOUNTER → 2024-11-15 | Outpatient (REF) | payer MEDICAID, MEDICARE ==
[~2024-11-15] MED LIST changes: -AUGM500T34 PO; -FAMO40TA3 PO; -IPRA0.00 INH; -MED REC COMMENT; -METO10TA2 PO; -PROC25SU27 PR; -THERTAB52 PO; -VITA500045 PO
== END ==
LOC: SKLAB4 10:43
PROVIDERS: ATTEND Family Medicine
DX: R09.89 Other specified symptoms and signs involving the circulatory and respiratory systems (principal)

== ENCOUNTER 2024-11-21 13:30 | Inpatient (IN) | payer MEDICARE, MEDICAID ==
[~2024-11-21] VITALS: Ht 165.1 cm; Wt 77.5 kg
[2024-11-21 14:07] LABS: VENOUS BASE EXCESS 0.4 (-2.0-2.0); VENOUS HCO3 28.1 MMOL/L (23.0-27.0); VENOUS O2 SATURATION 51.2 % (60.0-80.0); VENOUS PARTIAL PRESSURE CO2 59.7 mmHg (38.0-50.0); VENOUS PARTIAL PRESSURE O2 29.6 mmHg (30.0-50.0); VENOUS PH 7.291 UNITS (7.330-7.430); VENOUS STANDARD HCO3 23.8 MMOL/L
[2024-11-21 14:19] LABS: BASO % 0.2 % (0.0-1.0); HEMATOCRIT 38.2 % (36.0-47.0); HEMOGLOBIN 11.8 g/dl (12.0-15.5); LYMPH # 0.2 10^3/uL (1.5-5.0); LYMPH % 1.4 % (24.0-44.0); MEAN CORPUSCULAR HEMOGLOBIN 27.3 pg (27.0-33.0); MEAN CORPUSCULAR HGB CONC 30.9 g/dl (32.0-36.5); MEAN CORPUSCULAR VOLUME 88.2 fl (80.0-96.0); MONO # 0.3 10^3/uL (0.0-0.8); MONO % 2.5 % (2.0-8.0); NEUTROPHILS # 10.9 10^3/uL (1.5-8.5); NEUTROPHILS % 95.4 % (36.0-66.0); PLATELET COUNT, AUTOMATED 282 10^3/uL (150-450); RED BLOOD COUNT 4.33 10^6/uL (4.00-5.40); WHITE BLOOD COUNT 11.4 10^3/uL (4.0-10.0)
[2024-11-21 14:31] LABS: KETONE, URINE AUTO RFX NEGATIVE (NEGATIVE); LEUKOCYTE ESTERASE UR AUTO RFX NEGATIVE (NEGATIVE); MUCUS, URINE RFX SMALL (NEGATIVE); NITRITE, URINE AUTO RFX NEGATIVE (NEGATIVE); RBC, URINE AUTO RFX 3 /HPF (0-3); SQUAM EPITHELIAL CELL UR AURFX 0 /HPF (0-6); WBC, URINE AUTO RFX 4 /HPF (0-3)
[2024-11-21 14:46] LABS: THYROID STIMULATING HORMONE 1.183 uIU/ML (0.55-4.78); THYROXINE (T4) 6.7 UG/DL (4.5-10.9)
[2024-11-21 14:51] LABS: PROCALCITONIN 0.68 ng/ml
[2024-11-21 14:53] LABS: ALBUMIN 2.9 G/DL (3.2-5.2); ALKALINE PHOSPHATASE 127 U/L (35-104); ALT/SGPT 18 U/L (7.0-40); AST/SGOT < 8 U/L (<34); BILIRUBIN,DIRECT 0.5 MG/DL (<0.4); BILIRUBIN,TOTAL 1.1 MG/DL (0.3-1.2); BLOOD UREA NITROGEN 20 MG/DL (9-23); CALCIUM LEVEL 9.4 MG/DL (8.3-10.6); CARBON DIOXIDE LEVEL 29 MMOL/L (20-31); CHLORIDE LEVEL 101 MMOL/L (98-107); CREATININE FOR GFR 0.49 MG/DL (0.55-1.30); GLOMERULAR FILTRATION RATE > 60.0 (>45); GLUCOSE, FASTING 415 MG/DL (74-106); POTASSIUM SERUM 4.4 MMOL/L (3.5-5.1); SODIUM LEVEL 135 MMOL/L (136-145); TOTAL PROTEIN 7.2 G/DL (5.7-8.2)
[2024-11-21] MEDS: ACETAMINOPHEN 650MG SUPP PR ONE (14:54)
[2024-11-21] MEDS: NS (Normal Saline) 0.9% 1,000 ML IV ONE ×2 (14:55→17:57)
[2024-11-21] MEDS ORDERED: VITA500045 PO (15:05)
[2024-11-21] MEDS ORDERED: METO10TA2 PO (15:05)
[2024-11-21] MEDS ORDERED: THERTAB52 PO (15:05)
[2024-11-21] MEDS ORDERED: AUGM500T34 PO (15:05)
[2024-11-21] MEDS ORDERED: FAMO40TA3 PO (15:05)
[2024-11-21] MEDS ORDERED: ACET-907 PO (15:08)
[2024-11-21] MEDS ORDERED: IPRA0.00 INH (15:08)
[2024-11-21] MEDS ORDERED: PROC25SU27 PR (15:08)
[2024-11-21] MEDS ORDERED: MED REC COMMENT (15:11)
[2024-11-21] MEDS ORDERED: HOME MED LIST COMPLETE! XX SCH (15:15)
[2024-11-21] MEDS: HumuLIN R (REGULAR) INSULIN (NovoLIN R) **100U/ML** PER UNIT IV ONE (15:36)
[2024-11-21 16:02] LABS: ABG BASE EXCESS 1.1 (-2.0-2.0); ABG HCO3 24.1 MMOL/L (22.0-26.0); ABG PARTIAL PRESSURE CO2 32.7 mmHg (35.0-45.0); ABG PARTIAL PRESSURE O2 75.9 mmHg (75.0-100.0); ABG STANDARD HCO3 25.4 MMOL/L. (22.0-26.0); ABG TOTAL CO2 25.1 MMOL/L (23.0-31.0); ABG pH (ARTERIAL) 7.485 UNITS (7.350-7.450)
[2024-11-21] MEDS ORDERED: ISOVUE-370 76% 100ML VIAL As Ordered ONE (16:18)
[2024-11-21] MEDS: ACETAMINOPHEN *IV* 500 MG in IV 1 EA IV ONE (16:23)
[2024-11-21] MEDS: VANCOMYCIN/WATER FOR INJ (PEG) 1,750 MG in IV 1 EA IV ONE (16:43)
[2024-11-21] MEDS: PIPERACILLIN/TAZOBACTAM SOD 3.375 GM in DEXTROSE 5% (D5W) ADV/MINI-BAG 50 ML IV ONE (17:47)
[2024-11-21] MEDS: METOCLOPRAMIDE 10MG TAB PO SCH (18:00)
[2024-11-21] MEDS: SIMETHICONE 80MG CHEW TAB PO SCH (18:00)
[2024-11-21] MEDS ORDERED: PROCHLORPERAZINE 25MG SUPP PR PRN (18:15)
[2024-11-21] MEDS ORDERED: ONDANSETRON 4MG TAB PO PRN (18:15)
[2024-11-21] MEDS ORDERED: PILL CUTTER 1 EACH XX PRN (18:25)
[2024-11-21] MEDS: NS (Normal Saline) 0.9% 1,000 ML IV SCH (19:26)
[2024-11-21] MEDS: MAGNESIUM OXIDE 400MG TAB (MAG-OX) PO SCH (20:00)
[2024-11-21] MEDS: LR 1,000 ML IV ONE (20:46)
[2024-11-21] MEDS: risperiDONE 0.5 MG TAB PO SCH (21:00)
[2024-11-21] MEDS: MEMANTINE 5MG TABLET (NAMENDA) PO SCH (21:00)
[2024-11-21] MEDS: FAMOTIDINE 20 MG TAB PO SCH (21:00)
[2024-11-21] MEDS: busPIRone 10 MG TAB PO SCH (21:00)
[2024-11-21] MEDS: APIXABAN 5 MG TAB (ELIQUIS) PO SCH (21:00)
[2024-11-22] MEDS: VANCOMYCIN HCL 1,000 MG, VIAL MATE ADAPTER 1 EACH in NS 250 ML IV SCH (01:13)
[2024-11-22 09:22] LABS: HEMATOCRIT 31.6 % (36.0-47.0); HEMOGLOBIN 9.9 g/dl (12.0-15.5); MEAN CORPUSCULAR HEMOGLOBIN 27.4 pg (27.0-33.0); MEAN CORPUSCULAR HGB CONC 31.3 g/dl (32.0-36.5); MEAN CORPUSCULAR VOLUME 87.5 fl (80.0-96.0); PLATELET COUNT, AUTOMATED 211 10^3/uL (150-450); RED BLOOD COUNT 3.61 10^6/uL (4.00-5.40); WHITE BLOOD COUNT 9.4 10^3/uL (4.0-10.0)
[2024-11-22 09:51] LABS: C REACTIVE PROTEIN QUANTITATIV 24.84 MG/DL (<1.0)
[2024-11-22 10:03] LABS: VANCOMYCIN RANDOM 12.8 UG/ML
[2024-11-22 10:05] LABS: ALBUMIN 2.3 G/DL (3.2-5.2); ALKALINE PHOSPHATASE 96 U/L (35-104); ALT/SGPT 15 U/L (7.0-40); AST/SGOT 18 U/L (<34); BILIRUBIN,TOTAL 0.5 MG/DL (0.3-1.2); BLOOD UREA NITROGEN 17 MG/DL (9-23); CALCIUM LEVEL 8.2 MG/DL (8.3-10.6); CARBON DIOXIDE LEVEL 26 MMOL/L (20-31); CHLORIDE LEVEL 108 MMOL/L (98-107); CREATININE FOR GFR 0.38 MG/DL (0.55-1.30); GLOMERULAR FILTRATION RATE > 60.0 (>45); GLUCOSE, FASTING 284 MG/DL (74-106); POTASSIUM SERUM 3.5 MMOL/L (3.5-5.1); SODIUM LEVEL 139 MMOL/L (136-145); TOTAL PROTEIN 5.8 G/DL (5.7-8.2)
[2024-11-22] MEDS: ESCITALOPRAM OXALATE 10 MG TAB (LEXAPRO) PO SCH (11:01)
[2024-11-22] MEDS: ASPIRIN 81MG CHEW TABLET PO SCH (11:01)
[2024-11-22] MEDS: LEVEMIR (INSULIN DETEMIR) 1 UNITS/0.01ML SC SCH (11:04)
[2024-11-22] MEDS: VANCOMYCIN 1,250 MG/250 ML IV BAG IV SCH (11:04)
[2024-11-22] MEDS ORDERED: GLUCAGON INJ 1MG VIAL SC PRN ×2 (14:55→21:20)
[2024-11-22] MEDS ORDERED: GLUCOSE 4 GM CHEW PO PRN ×2 (14:55→21:20)
[2024-11-22] MEDS ORDERED: DEXTROSE 50% 50ML SYRINGE IV PRN ×2 (14:55→21:20)
[2024-11-22] MEDS ORDERED: fentaNYL 100 MCG/2 ML INJECTION As Ordered ONE (18:09)
[2024-11-22] MEDS ORDERED: propofoL 200 MG/20 ML VIAL As Ordered ONE (18:09)
[2024-11-22] MEDS ORDERED: MIDAZOLAM INJ 2MG/2ML VIAL As Ordered ONE (18:09)
[2024-11-22] MEDS ORDERED: LIDOCAINE 2% 100MG/5ML SDV (FOR ANES.) As Ordered ONE (18:09)
[2024-11-22] MEDS: ceFAZolin 2 GM/D5W 50 ML IV BAG As Ordered ONE (19:47)
[2024-11-22] MEDS ORDERED: ePHEDrine SULFATE 25 MG/5 ML(5MG/ML) SYRINGE As Ordered ONE (20:02)
[2024-11-22] MEDS: LIDOCAINE 1% SDV 30ML VIAL As Ordered ONE (20:15)
[2024-11-22] MEDS: INSULIN LISPRO (NovoLOG) PER UNIT SC PRN (21:31)
[2024-11-22 22:00] VITALS: BP 98/46; TEMP 97.9; O2SAT 93
[2024-11-22] MEDS: INSULIN LISPRO (NovoLOG) PER UNIT SC SCH (22:00)
[2024-11-22 22:28] VITALS: BP 88/43; TEMP 97.8; O2SAT 95
[2024-11-22] MEDS: NS 500 ML IV ONE (22:51)
[2024-11-22 23:00] VITALS: BP 82/47; TEMP 97.9; O2SAT 95
[2024-11-22 23:53] VITALS: BP 89/42; TEMP 97.5; O2SAT 93
[2024-11-23] VITALS (9 sets, daily range): BP systolic 88–125; BP diastolic 43–57; TEMP 97.2–98.1; O2SAT 92–95
[2024-11-23] MEDS: NS 500 ML IV ONE (02:15)
[2024-11-23 06:12] LABS: HEMATOCRIT 30.1 % (36.0-47.0); HEMOGLOBIN 9.5 g/dl (12.0-15.5); MEAN CORPUSCULAR HEMOGLOBIN 27.8 pg (27.0-33.0); MEAN CORPUSCULAR HGB CONC 31.6 g/dl (32.0-36.5); PLATELET COUNT, AUTOMATED 220 10^3/uL (150-450); RED BLOOD COUNT 3.42 10^6/uL (4.00-5.40); WHITE BLOOD COUNT 8.1 10^3/uL (4.0-10.0)
[2024-11-23 06:41] LABS: ALBUMIN 2.1 G/DL (3.2-5.2); ALKALINE PHOSPHATASE 84 U/L (35-104); ALT/SGPT 17 U/L (7.0-40); AST/SGOT 18 U/L (<34); BILIRUBIN,TOTAL 0.3 MG/DL (0.3-1.2); BLOOD UREA NITROGEN 18 MG/DL (9-23); CALCIUM LEVEL 8.5 MG/DL (8.3-10.6); CARBON DIOXIDE LEVEL 25 MMOL/L (20-31); CHLORIDE LEVEL 109 MMOL/L (98-107); CREATININE FOR GFR 0.45 MG/DL (0.55-1.30); GLOMERULAR FILTRATION RATE > 60.0 (>45); GLUCOSE, FASTING 132 MG/DL (74-106); POTASSIUM SERUM 3.5 MMOL/L (3.5-5.1); SODIUM LEVEL 143 MMOL/L (136-145); TOTAL PROTEIN 5.7 G/DL (5.7-8.2)
[2024-11-23] MEDS: NS (Normal Saline) 0.9% 1,000 ML IV ONE (07:30)
[2024-11-23] MEDS: LACTOBACILLUS ACIDOPHILUS CAP (BACID) PO SCH (08:57)
[2024-11-23] MEDS: PIPERACILLIN/TAZOBACTAM SOD 3.375 GM in DEXTROSE 5% (D5W) ADV/MINI-BAG 50 ML IV SCH (08:57)
[2024-11-23] MEDS ORDERED: VANCOMYCIN HCL 1,250 MG, VIAL MATE ADAPTER 1 EACH in NS 250 ML IV SCH (11:00)
[2024-11-23] MEDS: VANCOMYCIN HCL 1,000 MG, VIAL MATE ADAPTER 1 EACH in NS 250 ML IV SCH (11:43)
[2024-11-23] MEDS: MULTIVITAMINS/MINERALS THERAP 1 TAB PO SCH (13:36)
[2024-11-24] VITALS (7 sets, daily range): BP systolic 103–126; BP diastolic 50–58; TEMP 97.5–98.1; O2SAT 95–96
[2024-11-24 06:27] LABS: HEMATOCRIT 29.2 % (36.0-47.0); HEMOGLOBIN 9.1 g/dl (12.0-15.5); MEAN CORPUSCULAR HEMOGLOBIN 27.2 pg (27.0-33.0); MEAN CORPUSCULAR HGB CONC 31.2 g/dl (32.0-36.5); MEAN CORPUSCULAR VOLUME 87.4 fl (80.0-96.0); PLATELET COUNT, AUTOMATED 200 10^3/uL (150-450); RED BLOOD COUNT 3.34 10^6/uL (4.00-5.40); WHITE BLOOD COUNT 4.9 10^3/uL (4.0-10.0)
[2024-11-24 06:57] LABS: ALBUMIN 2.1 G/DL (3.2-5.2); ALKALINE PHOSPHATASE 72 U/L (35-104); ALT/SGPT 13 U/L (7.0-40); AST/SGOT 13 U/L (<34); BILIRUBIN,TOTAL 0.3 MG/DL (0.3-1.2); BLOOD UREA NITROGEN 14 MG/DL (9-23); CALCIUM LEVEL 7.7 MG/DL (8.3-10.6); CARBON DIOXIDE LEVEL 25 MMOL/L (20-31); CHLORIDE LEVEL 113 MMOL/L (98-107); CREATININE FOR GFR 0.47 MG/DL (0.55-1.30); GLOMERULAR FILTRATION RATE > 60.0 (>45); GLUCOSE, FASTING 163 MG/DL (74-106); POTASSIUM SERUM 3.9 MMOL/L (3.5-5.1); SODIUM LEVEL 145 MMOL/L (136-145); TOTAL PROTEIN 5.4 G/DL (5.7-8.2)
[2024-11-24] MEDS: LEVEMIR (INSULIN DETEMIR) 1 UNITS/0.01ML SC SCH (08:24)
[2024-11-24] MEDS: cefTRIAXone SOD 2 GM in DEXTROSE 5% (D5W) ADV/MINI-BAG 50 ML IV SCH (16:10)
[2024-11-24] MEDS: metroNIDAZOLE (FLAGYL) 500MG TABLET PO SCH (16:10)
[2024-11-25 03:23] VITALS: BP 122/55; TEMP 97.1; O2SAT 96
[2024-11-25 05:58] LABS: HEMATOCRIT 30.2 % (36.0-47.0); HEMOGLOBIN 9.4 g/dl (12.0-15.5); MEAN CORPUSCULAR HEMOGLOBIN 27.4 pg (27.0-33.0); MEAN CORPUSCULAR HGB CONC 31.1 g/dl (32.0-36.5); PLATELET COUNT, AUTOMATED 223 10^3/uL (150-450); RED BLOOD COUNT 3.43 10^6/uL (4.00-5.40); WHITE BLOOD COUNT 6.1 10^3/uL (4.0-10.0)
[2024-11-25 06:19] LABS: ALBUMIN 2.2 G/DL (3.2-5.2); ALKALINE PHOSPHATASE 72 U/L (35-104); ALT/SGPT 12 U/L (7.0-40); AST/SGOT 9 U/L (<34); BILIRUBIN,TOTAL 0.3 MG/DL (0.3-1.2); BLOOD UREA NITROGEN 11 MG/DL (9-23); CARBON DIOXIDE LEVEL 25 MMOL/L (20-31); CHLORIDE LEVEL 112 MMOL/L (98-107); CREATININE FOR GFR 0.41 MG/DL (0.55-1.30); GLOMERULAR FILTRATION RATE > 60.0 (>45); GLUCOSE, FASTING 168 MG/DL (74-106); POTASSIUM SERUM 3.7 MMOL/L (3.5-5.1); SODIUM LEVEL 143 MMOL/L (136-145); TOTAL PROTEIN 5.7 G/DL (5.7-8.2)
[2024-11-25 07:43] VITALS: BP 112/52; TEMP 97; O2SAT 98
[2024-11-25 08:55] LABS: C REACTIVE PROTEIN QUANTITATIV 3.63 MG/DL (<1.0)
[2024-11-25] MEDS: LEVEMIR (INSULIN DETEMIR) 1 UNITS/0.01ML SC SCH (09:54)
[2024-11-25 11:37] VITALS: BP 125/56; TEMP 97.7; O2SAT 97
[2024-11-25] MEDS: INSULIN LISPRO (NovoLOG) PER UNIT SC SCH ×2 (13:06→21:00)
[2024-11-25 16:00] VITALS: BP 120/58; TEMP 97.6; O2SAT 97
[2024-11-25 20:04] VITALS: BP 126/60; TEMP 97.5; O2SAT 96
[2024-11-26] VITALS (15 sets, daily range): BP systolic 88–134; BP diastolic 53–78; TEMP 97–98.2; O2SAT 94–100
[2024-11-26] MEDS ORDERED: ONDANSETRON 4MG 2ML VIAL As Ordered ONE (06:50)
[2024-11-26] MEDS ORDERED: ROCURONIUM BROMIDE 50MG/5ML VIAL As Ordered ONE (06:51)
[2024-11-26] MEDS ORDERED: SUGAMMADEX SODIUM 500 MG/5 ML VIAL (BRIDION) As Ordered ONE (06:51)
[2024-11-26 07:58] LABS: HEMATOCRIT 31.9 % (36.0-47.0); HEMOGLOBIN 9.9 g/dl (12.0-15.5); MEAN CORPUSCULAR HEMOGLOBIN 27.1 pg (27.0-33.0); MEAN CORPUSCULAR VOLUME 87.4 fl (80.0-96.0); PLATELET COUNT, AUTOMATED 221 10^3/uL (150-450); RED BLOOD COUNT 3.65 10^6/uL (4.00-5.40)
[2024-11-26 08:10] LABS: ALBUMIN 2.1 G/DL (3.2-5.2); ALKALINE PHOSPHATASE 74 U/L (35-104); ALT/SGPT 19 U/L (7.0-40); AST/SGOT 12 U/L (<34); BILIRUBIN,TOTAL 0.3 MG/DL (0.3-1.2); BLOOD UREA NITROGEN 11 MG/DL (9-23); CARBON DIOXIDE LEVEL 26 MMOL/L (20-31); CHLORIDE LEVEL 110 MMOL/L (98-107); CREATININE FOR GFR 0.33 MG/DL (0.55-1.30); GLOMERULAR FILTRATION RATE > 60.0 (>45); GLUCOSE, FASTING 146 MG/DL (74-106); POTASSIUM SERUM 3.6 MMOL/L (3.5-5.1); SODIUM LEVEL 142 MMOL/L (136-145); TOTAL PROTEIN 5.8 G/DL (5.7-8.2)
[2024-11-26] MEDS ORDERED: ACETAMINOPHEN 1000MG/100ML IV BAG As Ordered ONE (10:00)
[2024-11-26] MEDS ORDERED: GLYCOPYRROLATE INJ 0.2 MG/ML 2 ML VIAL As Ordered ONE (10:26)
[2024-11-26] MEDS ORDERED: HYDROmorphone HCL 2MG/ML 1ML VIAL As Ordered ONE (10:47)
[2024-11-27 03:56] VITALS: BP 111/53; TEMP 97.5; O2SAT 97
[2024-11-27 07:17] LABS: HEMATOCRIT 31.5 % (36.0-47.0); HEMOGLOBIN 9.8 g/dl (12.0-15.5); MEAN CORPUSCULAR HEMOGLOBIN 27.1 pg (27.0-33.0); MEAN CORPUSCULAR HGB CONC 31.1 g/dl (32.0-36.5); MEAN CORPUSCULAR VOLUME 87.3 fl (80.0-96.0); PLATELET COUNT, AUTOMATED 257 10^3/uL (150-450); RED BLOOD COUNT 3.61 10^6/uL (4.00-5.40); WHITE BLOOD COUNT 8.3 10^3/uL (4.0-10.0)
[2024-11-27 07:39] VITALS: BP 111/51; TEMP 97.6; O2SAT 96
[2024-11-27 07:40] LABS: C REACTIVE PROTEIN QUANTITATIV 2.46 MG/DL (<1.0)
[2024-11-27 07:44] LABS: ALBUMIN 2.1 G/DL (3.2-5.2); ALKALINE PHOSPHATASE 77 U/L (35-104); ALT/SGPT 16 U/L (7.0-40); AST/SGOT < 8 U/L (<34); BILIRUBIN,TOTAL 0.3 MG/DL (0.3-1.2); BLOOD UREA NITROGEN 13 MG/DL (9-23); CALCIUM LEVEL 8.5 MG/DL (8.3-10.6); CARBON DIOXIDE LEVEL 27 MMOL/L (20-31); CHLORIDE LEVEL 107 MMOL/L (98-107); CREATININE FOR GFR 0.37 MG/DL (0.55-1.30); GLOMERULAR FILTRATION RATE > 60.0 (>45); GLUCOSE, FASTING 206 MG/DL (74-106); POTASSIUM SERUM 4.5 MMOL/L (3.5-5.1); SODIUM LEVEL 139 MMOL/L (136-145); TOTAL PROTEIN 5.7 G/DL (5.7-8.2)
[2024-11-27] MEDS: ACETAMINOPHEN 500 MG TAB PO PRN (08:50)
[2024-11-27 16:33] VITALS: BP 105/51; TEMP 99.3; O2SAT 98
[2024-11-27 20:43] VITALS: BP 104/59; TEMP 98.1; O2SAT 97
[2024-11-27 23:52] VITALS: BP 136/57; TEMP 97.7; O2SAT 99
[2024-11-28 06:44] LABS: HEMATOCRIT 32.5 % (36.0-47.0); MEAN CORPUSCULAR HGB CONC 30.8 g/dl (32.0-36.5); MEAN CORPUSCULAR VOLUME 87.8 fl (80.0-96.0); PLATELET COUNT, AUTOMATED 253 10^3/uL (150-450); WHITE BLOOD COUNT 7.3 10^3/uL (4.0-10.0)
[2024-11-28 07:06] LABS: ALBUMIN 2.2 G/DL (3.2-5.2); ALKALINE PHOSPHATASE 78 U/L (35-104); ALT/SGPT 14 U/L (7.0-40); AST/SGOT < 8 U/L (<34); BILIRUBIN,TOTAL 0.3 MG/DL (0.3-1.2); BLOOD UREA NITROGEN 12 MG/DL (9-23); CALCIUM LEVEL 8.5 MG/DL (8.3-10.6); CARBON DIOXIDE LEVEL 30 MMOL/L (20-31); CHLORIDE LEVEL 105 MMOL/L (98-107); CREATININE FOR GFR 0.46 MG/DL (0.55-1.30); GLOMERULAR FILTRATION RATE > 60.0 (>45); GLUCOSE, FASTING 161 MG/DL (74-106); POTASSIUM SERUM 4.9 MMOL/L (3.5-5.1); SODIUM LEVEL 142 MMOL/L (136-145)
[2024-11-28 08:33] VITALS: BP 100/67; TEMP 98.1; O2SAT 98
[2024-11-28 16:20] VITALS: BP 110/56; TEMP 99.5; O2SAT 94
[2024-11-28 16:29] VITALS: TEMP 99.7
[2024-11-28 20:11] VITALS: BP 115/50; TEMP 98.7; O2SAT 97
[2024-11-29 03:38] VITALS: BP 127/46; TEMP 98.2; O2SAT 97
[2024-11-29 06:29] LABS: HEMATOCRIT 33.3 % (36.0-47.0); HEMOGLOBIN 10.3 g/dl (12.0-15.5); MEAN CORPUSCULAR HEMOGLOBIN 27.1 pg (27.0-33.0); MEAN CORPUSCULAR HGB CONC 30.9 g/dl (32.0-36.5); MEAN CORPUSCULAR VOLUME 87.6 fl (80.0-96.0); PLATELET COUNT, AUTOMATED 328 10^3/uL (150-450); WHITE BLOOD COUNT 7.7 10^3/uL (4.0-10.0)
[2024-11-29 06:41] LABS: ALBUMIN 2.2 G/DL (3.2-5.2); ALKALINE PHOSPHATASE 76 U/L (35-104); ALT/SGPT 12 U/L (7.0-40); AST/SGOT < 8 U/L (<34); BILIRUBIN,TOTAL 0.4 MG/DL (0.3-1.2); BLOOD UREA NITROGEN 13 MG/DL (9-23); CALCIUM LEVEL 8.8 MG/DL (8.3-10.6); CARBON DIOXIDE LEVEL 29 MMOL/L (20-31); CHLORIDE LEVEL 103 MMOL/L (98-107); CREATININE FOR GFR 0.46 MG/DL (0.55-1.30); GLOMERULAR FILTRATION RATE > 60.0 (>45); GLUCOSE, FASTING 183 MG/DL (74-106); POTASSIUM SERUM 4.2 MMOL/L (3.5-5.1); SODIUM LEVEL 139 MMOL/L (136-145); TOTAL PROTEIN 6.1 G/DL (5.7-8.2)
[2024-11-29 07:49] VITALS: BP 105/52; TEMP 98.5; O2SAT 96
[2024-11-29] MEDS: ACETAMINOPHEN 500 MG TAB PO PRN (12:32)
[2024-11-29] MEDS ORDERED: METR-265 PO (12:47)
[2024-11-29] MEDS ORDERED: CEFD300CAP PO (12:47)
[2024-11-29] MEDS ORDERED: RISATAB3 PO (12:47)
[2024-11-29] MEDS ORDERED: JUVEPOW4 PO (12:54)
[2024-11-29] MEDS ORDERED: GLUC1LIQ18 PO (12:55)
== END 2024-11-29 14:43 | DRG 853 ==
LOC: EDBD 13:30 → M ED 13:30 → M ED INP 18:13 → M PCU 11-22 22:04
PROVIDERS: ADMIT Internal Medicine; ATTEND Internal Medicine
PROC: 0QB10ZZ Excision of Sacrum, Open Approach (ICD-10-PCS; principal; 2024-11-22 17:00)
PROC: 0KBG0ZZ Excision of Left Trunk Muscle, Open Approach (ICD-10-PCS; 2024-11-26)
PROC: 0KBF0ZZ Excision of Right Trunk Muscle, Open Approach (ICD-10-PCS; 2024-11-26)
DX: A40.9 Streptococcal sepsis, unspecified (principal); G93.41 Metabolic encephalopathy; L89.154 Pressure ulcer of sacral region, stage 4; G10 Huntington's disease; M46.28 Osteomyelitis of vertebra, sacral and sacrococcygeal region; E87.20 Acidosis, unspecified; F32.A Depression, unspecified; F41.9 Anxiety disorder, unspecified; F03.90 Unspecified dementia, unspecified severity, without behavioral disturbance, psychotic disturbance, mood disturbance, and anxiety; R65.20 Severe sepsis without septic shock; E11.69 Type 2 diabetes mellitus with other specified complication; E83.42 Hypomagnesemia; K59.09 Other constipation; K59.81 Ogilvie syndrome; Z86.711 Personal history of pulmonary embolism; Z79.82 Long term (current) use of aspirin; Z79.01 Long term (current) use of anticoagulants; Z79.4 Long term (current) use of insulin; Z79.899 Other long term (current) drug therapy; Z74.01 Bed confinement status

== ENCOUNTER → 2024-12-03 | Outpatient (REF) | payer MEDICARE, MEDICAID ==
[~2024-12-03] MED LIST changes: +AUGM500T34 PO; +CEFD300CAP PO; +FAMO40TA3 PO; +IPRA0.00 INH; +JUVEPOW4 PO; +MED REC COMMENT; +METO10TA2 PO; +PROC25SU27 PR; +THERTAB52 PO; +VITA500045 PO
[2024-12-03 11:23] LABS: HEMATOCRIT 31.2 % (36.0-47.0); HEMOGLOBIN 9.6 g/dl (12.0-15.5); MEAN CORPUSCULAR HEMOGLOBIN 26.6 pg (27.0-33.0); MEAN CORPUSCULAR HGB CONC 30.8 g/dl (32.0-36.5); MEAN CORPUSCULAR VOLUME 86.4 fl (80.0-96.0); PLATELET COUNT, AUTOMATED 346 10^3/uL (150-450); RED BLOOD COUNT 3.61 10^6/uL (4.00-5.40); WHITE BLOOD COUNT 7.8 10^3/uL (4.0-10.0)
[2024-12-03 11:51] LABS: BLOOD UREA NITROGEN 15 MG/DL (9-23); CALCIUM LEVEL 8.2 MG/DL (8.3-10.6); CARBON DIOXIDE LEVEL 27 MMOL/L (20-31); CHLORIDE LEVEL 107 MMOL/L (98-107); CREATININE FOR GFR 0.38 MG/DL (0.55-1.30); GLOMERULAR FILTRATION RATE > 60.0 (>45); GLUCOSE, FASTING 250 MG/DL (74-106); POTASSIUM SERUM 4.2 MMOL/L (3.5-5.1); SODIUM LEVEL 139 MMOL/L (136-145)
== END ==
LOC: SKLAB4 07:00
PROVIDERS: ATTEND Internal Medicine
DX: M86.9 Osteomyelitis, unspecified (principal)